=== PATIENT | male | born 1965 | race Caucasian/White ===

== ENCOUNTER 2016-07-06 16:50 | Inpatient (IN) | payer OTHER ==
[~2016-07-06] VITALS: Ht 162.6 cm; Wt 74.1 kg
[~2016-07-06 16:50] MED LIST: CHOL2000 PO; CYAN100020 PO; FOLI1TAB7 PO; LPR25 PO; MAGN400T6 PO; MULT-506 PO; PRT40 PO; RMR15 PO; THIA100T11 PO; TRAZ50TA35 PO; TRIA1SPR4
[2016-07-06] MEDS ORDERED: LORAZEPAM 2 MG/ML 1 ML VIAL IV STA ×3 (17:09→18:52)
[2016-07-06] MEDS ORDERED: SODIUM CHLORIDE 0.9% 1000ML 1,000 ML IV STA (17:09)
[2016-07-06] MEDS ORDERED: MULTI-VITAMIN INFUSION INJ 10 ML, THIAMINE HCL INJ 100 MG, FoLIC ACID INJ 1 MG in SODIU... IV ONE (17:15)
[2016-07-06] MEDS ORDERED: METOPROLOL TARTRATE 1 MG/ML VIAL IV STA ×2 (17:32→17:55)
[2016-07-06 17:41] LABS: ISTAT CREATININE 0.7 mg/dl (0.6-1.3); ISTAT HEMOGLOBIN 16.7 g/dl (14.0-18.0)
--- NOTE | 2016-07-06 17:48 | DIAGNOSTIC IMAGING REPORT ---
SINGLE VIEW CHEST CLINICAL HISTORY: Generalized weakness. FINDINGS: An AP, portable, upright chest radiograph is compared to study dated 01/02/2016 and correlated with chest CT dated 01/21/2015. The examination is significantly degraded by portable technique, apical lordotic positioning, and patient rotation. The cardiomediastinal silhouette is unremarkable. The lungs and pleural spaces are clear. No pneumothorax is seen. The bony thorax is grossly intact. IMPRESSION: No active disease in the chest. Electronically signed by: Dom Scott M.D. 07/06/2016 5:46 PM Dictated Date/Time: 07/06/2016 5:46 PM
[2016-07-06 19:21] LABS: PARTIAL THROMBOPLASTIN RATIO 0.9; PROTHROMBIN TIME (PATIENT) 10.7 SECONDS (9.0-12.0)
[2016-07-06 19:22] LABS: ALT/SGPT 96 U/L (12-78); BLOOD UREA NITROGEN 10 mg/dl (7-18); BUN/CREATININE RATIO 14.3 (10-20); CALCIUM 8.6 mg/dl (8.5-10.1); CARBON DIOXIDE 16 mmol/L (21-32); CHLORIDE 104 mmol/L (98-107); CREATININE 0.67 mg/dl (0.60-1.40); GLUCOSE 86 mg/dl (70-99); MAGNESIUM 1.6 mg/dl (1.8-2.4); POTASSIUM 4.2 mmol/L (3.5-5.1); SODIUM 140 mmol/L (136-145)
[2016-07-06 19:39] LABS: ALKALINE PHOSPHATASE 63 U/L (45-117); AST/SGOT 201 U/L (15-37); PHOSPHORUS 1.3 mg/dl (2.5-4.9)
[2016-07-06 19:44] LABS: MANUAL MICROSCOPIC REQUIRED? NO; REVIEW REQ? NO; URINE APPEARANCE CLEAR (CLEAR); URINE BILIRUBIN NEG (NEG); URINE COLOR YELLOW; URINE EPITHELIAL CELL AUTO 0-5 /lpf (0-5); URINE NITRITE NEG (NEG); URINE SPECIFIC GRAVITY 1.014 (1.000-1.030); UROBILINOGEN NEG (NEG); ZZUR CULT IF INDIC CLEAN CATCH NO
[2016-07-06] MEDS ORDERED: LORAZEPAM 2 MG/ML 1 ML VIAL IV PRN (20:15)
[2016-07-06 20:16] LABS: BASO % 0.4 %; BASO ABS # 0.04 K/uL (0-0.2); COMPLETE YES; HEMATOCRIT 45.4 % (42-52); IG% 0.8 %; LYMPH % 23.4 %; LYMPH ABS # 2.53 K/uL (1.2-3.4); MEAN CELL VOLUME 94.4 fL (80-100); MEAN CORPUSCULAR HEMOGLOBIN 32.2 pg (25-34); MEAN CORPUSCULAR HGB CONC 34.1 g/dl (32-36); MEAN PLATELET VOLUME 10.2 fL (7.4-10.4); MONO % 12.7 %; NEUT % 62.7 %; PLATELET COUNT 136 K/uL (130-400); RED BLOOD COUNT 4.81 M/uL (4.7-6.1); WHITE BLOOD COUNT 10.82 K/uL (4.8-10.8)
[2016-07-06 20:20] LABS: BENZODIAZEPINE, URINE NEG (NEG); COCAINE,URINE NEG (NEG); PHENCYCLIDINE, URINE NEG (NEG)
--- NOTE | 2016-07-06 21:07 | DIAGNOSTIC IMAGING REPORT ---
CT SCAN OF THE BRAIN WITHOUT IV CONTRAST CLINICAL HISTORY: Generalized weakness. COMPARISON STUDY: CT of the brain dated 07/27/15. TECHNIQUE: Unenhanced axial CT scan of the brain is performed from the vertex to the skull base. Automated dose control exposure was utilized. CT DOSE: 709.48 mGy.cm FINDINGS: Brain parenchyma: Age-advanced central greater than peripheral cortical volume loss is similar to prior studies. There is no hemorrhage, mass effect, or evidence of acute territorial ischemia by CT criteria. Reynolds-white matter is preserved. No extra-axial fluid collection is seen. Ventricles, sulci, cisterns: Prominent for age. Intracranial vasculature: The visualized intracranial vasculature at the skull base is normal in appearance. Calvarium: Unremarkable. Sinuses and mastoids: The visualized paranasal sinuses are clear. The mastoid air cells are well pneumatized. Orbits: The bony orbits are grossly intact. IMPRESSION: No acute intracranial abnormality. Electronically signed by: Dom Scott M.D. 07/06/2016 6:12 PM Dictated Date/Time: 07/06/2016 6:09 PM
[2016-07-06] MEDS ORDERED: PROMETHAZINE HCL INJ 12.5 MG in SODIUM CHLORIDE 0.9% 50ML 50 ML IV PRN (21:15)
[2016-07-06] MEDS ORDERED: NITROGLYCERIN 0.4 MG SL PER TAB CHARGE SL PRN (21:15)
[2016-07-06] MEDS ORDERED: TRIAMCINOLONE ACET NASAL SPRAY 10.8ML BTL PRN (21:15)
[2016-07-06] MEDS ORDERED: ONDANSETRON INJ 2 MG/ML 2 ML VIAL IV PRN (21:15)
[2016-07-06] MEDS ORDERED: BISACODYL 10 MG SUPP PR PRN (21:15)
[2016-07-06] MEDS ORDERED: MULTI-VITAMIN INFUSION INJ 10 ML, THIAMINE HCL INJ 100 MG, FoLIC ACID INJ 1 MG in SODIU... IV SCH (21:15)
[2016-07-06] MEDS ORDERED: ALUMINUM/MAGNESIUM/SIMETH (MAALOX MAX) 30 ML UDC PO PRN (21:15)
[2016-07-06] MEDS ORDERED: MAGNESIUM HYDROXIDE SUSP 30 ML UDC PO PRN (21:15)
[2016-07-06] MEDS ORDERED: ZOLPIDEM TARTRATE 5 MG TAB PO PRN ×2 (21:15)
[2016-07-06] MEDS ORDERED: CHLORDIAZEPOXIDE 25 MG CAP ONE (21:32)
[2016-07-06] MEDS ORDERED: CHLORDIAZEPOXIDE 25 MG CAP PO STA (21:46)
--- NOTE | 2016-07-06 21:52 | History and Physical ---
History & Physical Date & Time of Service: Jul 06, 2016 at 21:35 Chief Complaint: Seizure, Detox Sx Primary Care Physician: Mariano Leonard D.O.Int.Med. History of Present Illness Source: patient The patient is a 50-year-old male with known alcoholism, whom I admitted several times to the hospital last year, who presents to the ED with report of a seizure after having stopped alcohol use 24-48 hours ago. His presentation this time is similar to his presentations in the past. Although, he does report that he thinks he reinjured his mid back during the seizure, and has required physical therapy in the past. He is also had nausea and vomiting, without hemoptysis, but denies any abdominal pain, bleeding tendencies or diarrhea. Past Medical/Surgical History Medical Problems: (1) Alcohol overdose Status: Resolved (2) Alcohol withdrawal Status: Resolved (3) Alcoholism Status: Chronic (4) Compression fracture of body of thoracic vertebra Status: Resolved (5) Compression fracture of L1 lumbar vertebra Status: Resolved (6) Hypokalemia Status: Resolved (7) Hypomagnesemia Status: Resolved Family History Lung disease Social History Smoking Status: Never Smoker Smokeless Tobacco Use: No Alcohol Use: heavy Drug Use: none Marital Status: in relationship Occupational Status: employed Multi-Drug Resistant Organisms History of MDRO: No Allergies Coded Allergies: No Known Allergies (Unverified , 02/05/16) Home Medications Scheduled Cholecalciferol (Vitamin D3), 2,000 INTER.UNIT PO DAILY Cyanocobalamin (Vitamin B12), 1,000 MCG PO DAILY Folic Acid (Folvite), 1 MG PO DAILY Magnesium Oxide (Mag-Ox), 400 MG PO BID Multivitamin (Multivitamin), 1 TAB PO DAILY Thiamine Hcl (Vitamin B-1), 100 MG PO BID Trazodone Hcl (Trazodone), 50 MG PO HS Scheduled PRN Triamcinolone Acetonide (Nasal (Nasacort Allergy 24Hr), 2 SPRAYS NA DAILY PRN for Allergy Symptoms Review of Systems The patient denies chest pain, palpitations, shortness of breath, lower extremity swelling, vision change, hearing change, fevers, chills, sweats, weight change, pelvic pain, blood in urine or stool, dysuria, urinary frequency or urgency, rash, abnormal bruising or bleeding, imbalance, focal or generalized weakness, neck pain, night sweats, or allergy symptoms. The review of systems is otherwise negative other than for that already noted above, and at least 10 systems have been reviewed. Physical Exam Vital Signs Date Time Temp Pulse Resp B/P Pulse Ox O2 Delivery O2 Flow Rate FiO2 07/06/16 21:08 103 07/06/16 20:01 98 22 97 07/06/16 19:58 129/86 07/06/16 19:31 93 22 96 07/06/16 19:26 93 16 97 07/06/16 19:24 96 25 94 07/06/16 19:22 95 27 95 07/06/16 19:20 93 23 95 07/06/16 19:18 92 25 130/82 93 07/06/16 19:16 92 23 130/84 07/06/16 19:14 93 24 127/89 07/06/16 19:12 101 24 132/86 94 07/06/16 19:10 106 25 129/85 95 07/06/16 19:09 108 142/91 07/06/16 19:09 129/80 07/06/16 19:08 116 22 142/91 87 07/06/16 19:06 107 22 96 07/06/16 19:04 104 24 96 07/06/16 19:02 102 21 97 07/06/16 19:00 104 25 96 07/06/16 18:50 103 26 127/81 96 Room Air 07/06/16 17:56 92 21 129/85 96 Room Air 07/06/16 17:40 143 23 130/95 99 Room Air 07/06/16 17:39 143 132/92 07/06/16 17:05 157 07/06/16 17:04 36.8 155 25 132/92 96 Room Air The patient is awake, alert and oriented 3, normocephalic and atraumatic, lying in bed and in no acute distress. HEENT--PERRL, EOMI, mucous membranes and oropharynx dry. Neck--supple, no JVD or bruits, thyroid normal, trachea midline, no adenopathy. Heart--normal S1 and S2, no extra beats, no murmurs, rubs or gallops. Lungs--clear bilaterally no respiratory distress, no accessory muscle use. Abdomen--normal bowel sounds and soft, nontender and nondistended, no hernias or masses, no organomegaly. Extremities--no cyanosis, clubbing or edema. There are good distal pulses b/l. Dermatologic--seborrheic dermatitis/early rosacea over the glabellar and periorbital skin regions of the face. Neurologic--cranial nerves II through XII grossly intact, motor and sensory examination normal, abnormal finger to nose bilaterally. Rheumatologic--tenderness over paraspinal muscles in the mid thoracic spine area. Psychiatric--normal affect. Diagnostics Laboratory Results Results Past 24 Hours Test 07/06/16 16:50 07/06/16 17:17 07/06/16 18:50 07/06/16 19:00 Range/Units White Blood Count 10.82 4.8-10.8 K/uL Red Blood Count 4.81 4.7-6.1 M/uL Hemoglobin 15.5 14.0-18.0 g/dL Hematocrit 45.4 42-52 % Mean Corpuscular Volume 94.4 80-100 fL Mean Corpuscular Hemoglobin 32.2 25-34 pg Mean Corpuscular Hemoglobin Concent 34.1 32-36 g/dl Platelet Count 136 130-400 K/uL Mean Platelet Volume 10.2 7.4-10.4 fL Neutrophils (%) (Auto) 62.7 % Lymphocytes (%) (Auto) 23.4 % Monocytes (%) (Auto) 12.7 % Eosinophils (%) (Auto) 0.0 % Basophils (%) (Auto) 0.4 % Neutrophils # (Auto) 6.79 1.4-6.5 K/uL Lymphocytes # (Auto) 2.53 1.2-3.4 K/uL Monocytes # (Auto) 1.37 0.11-0.59 K/uL Eosinophils # (Auto) 0.00 0-0.5 K/uL Basophils # (Auto) 0.04 0-0.2 K/uL RDW Standard Deviation 51.3 36.4-46.3 fL RDW Coefficient of Variation 14.7 11.5-14.5 % Immature Granulocyte % (Auto) 0.8 % Immature Granulocyte # (Auto) 0.09 0.00-0.02 K/uL Bedside Hemoglobin 16.7 14.0-18.0 g/dl Bedside Hematocrit 49 42-52 % Bedside Sodium 139 135-144 mEq/L Bedside Potassium 3.0 3.3-5.0 mEq/L Bedside Chloride 102 101-112 mEq/L Bedside Total CO2 10 24-31 mEq/l Anion Gap 30.0 20.0 3-11 mmol/L Bedside Blood Urea Nitrogen 11 7-18 mg/dl Bedside Creatinine 0.7 0.6-1.3 mg/dl Bedside Glucose (other) 105 70-99 mg/dl Bedside Ionized Calcium (Luz) 1.00 1.12-1.32 mmol/l Prothrombin Time 10.7 9.0-12.0 SECONDS Prothromb Time International Ratio 1.0 0.9-1.1 Activated Partial Thromboplast Time 24.3 21.0-31.0 SECONDS Partial Thromboplastin Ratio 0.9 Sodium Level 140 136-145 mmol/L Potassium Level 4.2 3.5-5.1 mmol/L Chloride Level 104 98-107 mmol/L Carbon Dioxide Level 16 21-32 mmol/L Blood Urea Nitrogen 10 7-18 mg/dl Creatinine 0.67 0.60-1.40 mg/dl Est Creatinine Clear Calc Drug Dose 122.3 ml/min Estimated GFR () 130.8 Estimated GFR (Non- 112.8 BUN/Creatinine Ratio 14.3 10-20 Random Glucose 86 70-99 mg/dl Calcium Level 8.6 8.5-10.1 mg/dl Phosphorus Level 1.3 2.5-4.9 mg/dl Magnesium Level 1.6 1.8-2.4 mg/dl Total Bilirubin 1.9 0.2-1 mg/dl Direct Bilirubin 0.7 0-0.2 mg/dl Aspartate Amino Transf (AST/SGOT) 201 15-37 U/L Alanine Aminotransferase (ALT/SGPT) 96 12-78 U/L Alkaline Phosphatase 63 45-117 U/L Total Creatine Kinase 462 39-308 U/L Creatine Kinase MB 4.6 0.5-3.6 ng/ml Creatine Kinase MB Ratio 1.0 0-3.0 Troponin I < 0.015 0-0.045 ng/ml Total Protein 7.5 6.4-8.2 gm/dl Albumin 3.6 3.4-5.0 gm/dl Lipase 209 73-393 U/L Ethyl Alcohol mg/dL < 3.0 0-3 mg/dl Urine Color YELLOW Urine Appearance CLEAR CLEAR Urine pH 5.0 4.5-7.5 Urine Specific [place] 1.014 1.000-1.030 Urine Protein 1+ NEG Urine Glucose (UA) NEG NEG Urine Ketones 3+ NEG Urine Occult Blood 2+ NEG Urine Nitrite NEG NEG Urine Bilirubin NEG NEG Urine Urobilinogen NEG NEG Urine Leukocyte Esterase NEG NEG Urine WBC (Auto) 1-5 0-5 /hpf Urine RBC (Auto) 0-4 0-4 /hpf Urine Hyaline Casts (Auto) 0 0-5 /lpf Urine Epithelial Cells (Auto) 0-5 0-5 /lpf Urine Bacteria (Auto) NEG NEG Urine Opiates Screen NEG NEG Urine Methadone, Qualitative NEG NEG Urine Barbiturates NEG NEG Urine Phencyclidine (PCP) Level NEG NEG Ur Amphetamine/Methamphetamine NEG NEG MDMA (Ecstasy) Screen NEG NEG Urine Benzodiazepines Screen NEG NEG Urine Cocaine Metabolite NEG NEG Urine Marijuana (THC) NEG NEG Diagnostic Radiology Patient Name: RANCHO NESBITT Unit Number: [id number] Dictated: 07/06/161808 Transcribed: 07/06/161808 EV Printed Date/Time: [~ rep prt dt]/[~ rep prt tm] [~ rep ct labl] - [~ rep ct ivnm] [facility] Radiology Department [place] [id number] Dictated: 07/06/161808 Transcribed: 07/06/161808 EV Printed Date/Time: [~ rep prt dt]/[~ rep prt tm] [~ rep ct labl] - [~ rep ct ivnm] CT SCAN OF THE BRAIN WITHOUT IV CONTRAST CLINICAL HISTORY: Generalized weakness. COMPARISON STUDY: CT of the brain dated 07/27/15. TECHNIQUE: Unenhanced axial CT scan of the brain is performed from the vertex to the skull base. Automated dose control exposure was utilized. CT DOSE: 709.48 mGy.cm FINDINGS: Brain parenchyma: Age-advanced central greater than peripheral cortical volume loss is similar to prior studies. There is no hemorrhage, mass effect, or evidence of acute territorial ischemia by CT criteria. Reynolds-white matter is preserved. No extra-axial fluid collection is seen. Ventricles, sulci, cisterns: Prominent for age. Intracranial vasculature: The visualized intracranial vasculature at the skull base is normal in appearance. Calvarium: Unremarkable. Sinuses and mastoids: The visualized paranasal sinuses are clear. The mastoid air cells are well pneumatized. Orbits: The bony orbits are grossly intact. IMPRESSION: No acute intracranial abnormality. Electronically signed by: Dom Scott M.D. 07/06/2016 6:12 PM Dictated Date/Time: 07/06/2016 6:09 PM The status of this report is Signed. Draft = Not yet reviewed or approved by Radiologist. Signed = Reviewed and approved by Radiologist. <AttendingPhy></AttendingPhy> <FamilyPhy>Mariano Leonard D.O.Int.Med.</ FamilyPhy> <PrimaryPhy>Mariano Leonard D.O.Int.Med.</PrimaryPhy> <UnitNumber> [id number]</UnitNumber> <VisitNumber>[id number]</VisitNumber> <PatientName> RANCHO NESBITT</PatientName> <DateOfBirth>1965</DateOfBirth> <Location> [facility]</Location> <ServiceDate>07/06/16</ServiceDate> <MNE>ESINDI</MNE> < OrderingPhy>Chad Cunningham M.D.</OrderingPhy> <OrderingPhyMNE>f rep ord dr mascorro</OrderingPhyMNE> <DictatingPhyMNE>f rep dict dr mascorro</DictatingPhyMNE> < CCListMNE>f rep ct ludwin</CCListMNE> <AdmittingPhyMNE>f pt admit dr mascorro</ AdmittingPhyMNE> <AttendingPhyMNE>f pt attend dr mascorro</AttendingPhyMNE> <ConsultingPhyMNE>f pt consult dr mascorro</ConsultingPhyMNE> <FamilyPhyMNE>f pt fam dr mascorro</FamilyPhyMNE> <OtherPhyMNE>f pt other dr mascorro</OtherPhyMNE> < PrimaryPhyMNE>f pt prim care dr mascorro</PrimaryPhyMNE> <ReferringPhyMNE>f pt referring dr mascorro</ReferringPhyMNE> EKG EKG shows atrial fibrillation at a rate of 150 bpm, with nonspecific ST changes. Impression Assessment and Plan Seizure activity likely secondary to alcohol withdrawal--the patient will be admitted to telemetry unit with seizure precautions. Will start Librium 25 mg by mouth tonight and continue at 25 mg by mouth twice a day, and have IV lorazepam available when necessary anxiety and when necessary seizure. We will not start him on seizure medications unless he has a recurrence tonight. Atrial fibrillation with rapid ventricular response--patient will be admitted to the telemetry unit as noted above, will follow serial cardiac enzymes, cardiac rhythm monitoring and order a 2-D echocardiogram with Dopplers. He has had paroxysmal atrial fib in the past. His electrolytes will be optimized along with his dehydration status. He'll be given magnesium sulfate 2 g IV for his magnesium level of 1.6, and he will be given a banana bag every a.m. to run at 125 mils per hour, followed by normal saline with KCl at 125 ML's per hour. Lopressor 5 mg IV every 4 hours when necessary for heart rate greater than 110 will be available. Abnormal liver enzymes--higher than usual for him. We'll order an ultrasound right upper quadrant to assess for possible cirrhosis. Elevated CK/metabolic acidosis--CK is elevated at 462, and bicarbonate is low at 16. Monitor enzymes for possible rhabdomyolysis. Treat as above with IV fluid rehydration. Follow serial BMP and magnesium levels. Hypophosphatemia--phosphorus level of 1.3 upon admission. We'll give 30 mmol K- Phos rider. Level of Care Telemetry Advanced Directives Existing Advance Directive: No Existing Living Will: No Existing Power of [employer]: No Resuscitation Status FULL RESUSCITATION VTE Prophylaxis VTE Risk Assessment Done? Y/N: Yes Risk Level: Moderate Given or contraindicated: SCD's
[2016-07-06] MEDS ORDERED: POTASSIUM PHOS 3 MMOL/1 ML INFUSION IV STA (21:53)
--- NOTE | 2016-07-06 22:22 | EMERGENCY ROOM VISIT NOTE ---
History Report prepared by Kandi: Phillip Mota Under the Supervision of: Dr. Chad Cunningham M.D. First contact with patient: 17:04 Chief Complaint: SEIZURE Stated Complaint: SEIZURE, DETOX SX Nursing Triage Summary: patient to ED via ALS for alcohol withdraw. Per medic, patient called for ambulance "because he was feeling weird." Upon scene, patient was found to be having a seizure lasting approximately 30 seconds, with heart rate around 170. Given 6mg adenocard by Dr Pelayo. At time of triage, patient is seizure free, AAOx4, c/o SOB, chest pressure History of Present Illness The patient is a 50 year old male who presents to the Emergency Room via ALS with complaints of a sudden seizure beginning just prior to arrival. He currently rates his discomfort as an 8/10 in severity. The patient associates chest pain and shortness of breath with today's symptoms. As per nursing note, the patient called the ambulance for "feeling weird", and upon EMS arrival, the patient had a seizure for 30 seconds. It is noted the patient has a history of alcohol abuse, and he notes his last alcohol drink was last night at 9 PM. The patient states he last went a couple days without drinking last week. He denies abdominal pain, hitting his head, blood in his stool, recent easy bruising, and recreational drug use. As per nursing note, the patient was given 6mg Adenocard by Dr. Pelayo. Source of History: patient Onset: just prior to arrival Position: other (global) Symptom Intensity: 8/10 Quality: other (seizure) Timing: other (sudden) Associated Symptoms: + SOB, + chest pain, No abdominal pain, No hematochezia , No melena Review of Systems See HPI for pertinent positives & negatives. A total of 10 systems reviewed and were otherwise negative. Past Medical & Surgical Medical Problems: (1) Alcohol overdose (2) Alcohol withdrawal (3) Alcohol withdrawal (4) Alcoholism (5) Compression fracture of body of thoracic vertebra (6) Compression fracture of L1 lumbar vertebra (7) Hypokalemia (8) Hypomagnesemia (9) Seizure-like activity Family History Lung disease Social History Smoking Status: Never Smoker Alcohol Use: heavy Drug Use: none Marital Status: in relationship Housing Status: lives with significant other Occupation Status: employed Current/Historical Medications Scheduled Cholecalciferol (Vitamin D3), 2,000 INTER.UNIT PO DAILY Cyanocobalamin (Vitamin B12), 1,000 MCG PO DAILY Folic Acid (Folvite), 1 MG PO DAILY Magnesium Oxide (Mag-Ox), 400 MG PO BID Multivitamin (Multivitamin), 1 TAB PO DAILY Thiamine Hcl (Vitamin B-1), 100 MG PO BID Trazodone Hcl (Trazodone), 50 MG PO HS Scheduled PRN Triamcinolone Acetonide (Nasal (Nasacort Allergy 24Hr), 2 SPRAYS NA DAILY PRN for Allergy Symptoms Allergies Coded Allergies: No Known Allergies (Unverified , 02/05/16) Physical Exam Vital Signs Date Time Temp Pulse Resp B/P Pulse Ox O2 Delivery O2 Flow Rate FiO2 07/06/16 21:30 99 24 137/83 96 Room Air 07/06/16 21:08 103 07/06/16 20:01 98 22 97 07/06/16 19:58 129/86 07/06/16 19:31 93 22 96 07/06/16 19:26 93 16 97 07/06/16 19:24 96 25 94 07/06/16 19:22 95 27 95 07/06/16 19:20 93 23 95 07/06/16 19:18 92 25 130/82 93 07/06/16 19:16 92 23 130/84 07/06/16 19:14 93 24 127/89 07/06/16 19:12 101 24 132/86 94 07/06/16 19:10 106 25 129/85 95 07/06/16 19:09 108 142/91 07/06/16 19:09 129/80 07/06/16 19:08 116 22 142/91 87 07/06/16 19:06 107 22 96 07/06/16 19:04 104 24 96 07/06/16 19:02 102 21 97 07/06/16 19:00 104 25 96 07/06/16 18:50 103 26 127/81 96 Room Air 07/06/16 17:56 92 21 129/85 96 Room Air 07/06/16 17:40 143 23 130/95 99 Room Air 07/06/16 17:39 143 132/92 07/06/16 17:05 157 07/06/16 17:04 36.8 155 25 132/92 96 Room Air Physical Exam GENERAL: Patient is ill appearing and in minimal distress. HEENT: No acute trauma, normocephalic atraumatic, mucous membranes dry, no nasal congestion, no scleral icterus. NECK: No stridor, no adenopathy, no meningismus, trachea is midline. LUNGS: No dyspnea. Clear to auscultation and equal bilaterally. No wheeze, no rhonchi. HEART: Tachycardic and regular. No murmurs, rubs, gallops appreciated. ABDOMEN: Soft, nontender, bowel sounds positive, no masses appreciated, no peritonitis. BACK: No midline tenderness, no CVA tenderness EXTREMITIES: Normal motion all extremities, no cyanosis, no edema. NEUROLOGIC: Alert and oriented, no acute motor or sensory deficits, no focal weakness, cranial nerves grossly intact. Fine tremor to all extremities. SKIN: No rash, no jaundice, no diaphoresis. Medical Decision & Procedures ER Provider Diagnostic Interpretation: X ray results and stated below per my interpretation and radiologist interpretation. Other radiology results and stated below per my review and radiologist interpretation: SINGLE VIEW CHEST CLINICAL HISTORY: Generalized weakness. FINDINGS: An AP, portable, upright chest radiograph is compared to study dated 01/02/2016 and correlated with chest CT dated 01/21/2015. The examination is significantly degraded by portable technique, apical lordotic positioning, and patient rotation. The cardiomediastinal silhouette is unremarkable. The lungs and pleural spaces are clear. No pneumothorax is seen. The bony thorax is grossly intact. IMPRESSION: No active disease in the chest. Electronically signed by: Dom Scott M.D. 07/06/2016 5:[address] SCAN OF THE BRAIN WITHOUT IV CONTRAST CLINICAL HISTORY: Generalized weakness. COMPARISON STUDY: CT of the brain dated 07/27/15. TECHNIQUE: Unenhanced axial CT scan of the brain is performed from the vertex to the skull base. Automated dose control exposure was utilized. CT DOSE: 709.48 mGy.cm FINDINGS: Brain parenchyma: Age-advanced central greater than peripheral cortical volume loss is similar to prior studies. There is no hemorrhage, mass effect, or evidence of acute territorial ischemia by CT criteria. Reynolds-white matter is preserved. No extra-axial fluid collection is seen. Ventricles, sulci, cisterns: Prominent for age. Intracranial vasculature: The visualized intracranial vasculature at the skull base is normal in appearance. Calvarium: Unremarkable. Sinuses and mastoids: The visualized paranasal sinuses are clear. The mastoid air cells are well pneumatized. Orbits: The bony orbits are grossly intact. IMPRESSION: No acute intracranial abnormality. Electronically signed by: Dom Scott M.D. 07/06/2016 6:12 PM Laboratory Results 07/06/16 16:50 Red Blood Count 4.81, Mean Corpuscular Volume 94.4, Mean Corpuscular Hemoglobin 32.2, Mean Corpuscular Hemoglobin Concent 34.1, Mean Platelet Volume 10.2, Neutrophils (%) (Auto) 62.7, Lymphocytes (%) (Auto) 23.4, Monocytes (%) (Auto) 12.7, Eosinophils (%) (Auto) 0.0, Basophils (%) (Auto) 0.4, Neutrophils # (Auto ) 6.79, Lymphocytes # (Auto) 2.53, Monocytes # (Auto) 1.37, Eosinophils # (Auto ) 0.00, Basophils # (Auto) 0.04 07/06/16 18:50 Test 07/06/16 16:50 07/06/16 17:17 07/06/16 18:50 07/06/16 19:00 White Blood Count 10.82 K/uL (4.8-10.8) Red Blood Count 4.81 M/uL (4.7-6.1) Hemoglobin 15.5 g/dL (14.0-18.0) Hematocrit 45.4 % (42-52) Mean Corpuscular Volume 94.4 fL (80-100) Mean Corpuscular Hemoglobin 32.2 pg (25-34) Mean Corpuscular Hemoglobin Concent 34.1 g/dl (32-36) Platelet Count 136 K/uL (130-400) Mean Platelet Volume 10.2 fL (7.4-10.4) Neutrophils (%) (Auto) 62.7 % Lymphocytes (%) (Auto) 23.4 % Monocytes (%) (Auto) 12.7 % Eosinophils (%) (Auto) 0.0 % Basophils (%) (Auto) 0.4 % Neutrophils # (Auto) 6.79 K/uL (1.4-6.5) Lymphocytes # (Auto) 2.53 K/uL (1.2-3.4) Monocytes # (Auto) 1.37 K/uL (0.11-0.59) Eosinophils # (Auto) 0.00 K/uL (0-0.5) Basophils # (Auto) 0.04 K/uL (0-0.2) RDW Standard Deviation 51.3 fL (36.4-46.3) RDW Coefficient of Variation 14.7 % (11.5-14.5) Immature Granulocyte % (Auto) 0.8 % Immature Granulocyte # (Auto) 0.09 K/uL (0.00-0.02) Bedside Hemoglobin 16.7 g/dl (14.0-18.0) Bedside Hematocrit 49 % (42-52) Bedside Sodium 139 mEq/L (135-144) Bedside Potassium 3.0 mEq/L (3.3-5.0) Bedside Chloride 102 mEq/L (101-112) Bedside Total CO2 10 mEq/l (24-31) Bedside Blood Urea Nitrogen 11 mg/dl (7-18) Bedside Creatinine 0.7 mg/dl (0.6-1.3) Bedside Glucose (other) 105 mg/dl (70-99) Bedside Ionized Calcium (Luz) 1.00 mmol/l (1.12-1.32) Prothrombin Time 10.7 SECONDS (9.0-12.0) Prothromb Time International Ratio 1.0 (0.9-1.1) Activated Partial Thromboplast Time 24.3 SECONDS (21.0-31.0) Partial Thromboplastin Ratio 0.9 Anion Gap 20.0 mmol/L (3-11) Est Creatinine Clear Calc Drug Dose 122.3 ml/min Estimated GFR () 130.8 Estimated GFR (Non- 112.8 BUN/Creatinine Ratio 14.3 (10-20) Calcium Level 8.6 mg/dl (8.5-10.1) Phosphorus Level 1.3 mg/dl (2.5-4.9) Magnesium Level 1.6 mg/dl (1.8-2.4) Total Bilirubin 1.9 mg/dl (0.2-1) Direct Bilirubin 0.7 mg/dl (0-0.2) Aspartate Amino Transf (AST/SGOT) 201 U/L (15-37) Alanine Aminotransferase (ALT/SGPT) 96 U/L (12-78) Alkaline Phosphatase 63 U/L (45-117) Total Protein 7.5 gm/dl (6.4-8.2) Albumin 3.6 gm/dl (3.4-5.0) Lipase 209 U/L (73-393) Ethyl Alcohol mg/dL < 3.0 mg/dl (0-3) Urine Color YELLOW Urine Appearance CLEAR (CLEAR) Urine pH 5.0 (4.5-7.5) Urine Specific [place] 1.014 (1.000-1.030) Urine Protein 1+ (NEG) Urine Glucose (UA) NEG (NEG) Urine Ketones 3+ (NEG) Urine Occult Blood 2+ (NEG) Urine Nitrite NEG (NEG) Urine Bilirubin NEG (NEG) Urine Urobilinogen NEG (NEG) Urine Leukocyte Esterase NEG (NEG) Urine WBC (Auto) 1-5 /hpf (0-5) Urine RBC (Auto) 0-4 /hpf (0-4) Urine Hyaline Casts (Auto) 0 /lpf (0-5) Urine Epithelial Cells (Auto) 0-5 /lpf (0-5) Urine Bacteria (Auto) NEG (NEG) Urine Opiates Screen NEG (NEG) Urine Methadone, Qualitative NEG (NEG) Urine Barbiturates NEG (NEG) Urine Phencyclidine (PCP) Level NEG (NEG) Ur Amphetamine/Methamphetamine NEG (NEG) MDMA (Ecstasy) Screen NEG (NEG) Urine Benzodiazepines Screen NEG (NEG) Urine Cocaine Metabolite NEG (NEG) Urine Marijuana (THC) NEG (NEG) Test 07/06/16 21:53 Creatine Kinase MB Ratio (0-3.0) Laboratory results as reviewed by me. Medications Administered Medications (Trade) Dose Ordered Sig/Dyan Route Start Time Stop Time Status Last Admin Dose Admin Sodium Chloride (Nss 1000ml) 1,000 ml @ 999 mls/hr Q1H1M STAT IV 07/06/16 17:09 07/06/16 18:09 DC 07/06/16 17:20 999 MLS/HR Lorazepam 1 mg 1 mg NOW STAT IV 07/06/16 17:09 07/06/16 17:11 DC 07/06/16 17:20 1 MG Multivitamins/ Thiamine HCl/ Folic Acid/Sodium Chloride (Mvi Infusion Inj/Vitamin B-1 Inj/Folvite Inj/ Nss 1000ml) 1,011.2 ml @ 200 mls/ hr Q5H4M ONCE IV 07/06/16 17:15 07/06/16 22:18 07/06/16 19:10 200 MLS/HR Metoprolol Tartrate (Lopressor Iv) 5 mg NOW STAT IV 07/06/16 17:32 07/06/16 17:33 DC 07/06/16 17:39 5 MG Lorazepam (Ativan Inj) 1 mg NOW STAT IV 07/06/16 17:46 07/06/16 17:47 DC 07/06/16 17:56 1 MG Metoprolol Tartrate (Lopressor Iv) 5 mg NOW STAT IV 07/06/16 17:55 07/06/16 17:57 DC 07/06/16 19:09 5 MG Lorazepam (Ativan Inj) 2 mg NOW STAT IV 07/06/16 18:52 07/06/16 18:53 DC 07/06/16 19:10 2 MG Chlordiazepoxide (Librium Cap) 25 mg STK-MED ONCE .ROUTE 07/06/16 21:32 07/06/16 21:34 DC 07/06/16 21:36 25 MG ECG Indication: other (seizure) Rate (beats per minute): 150 Rhythm: atrial fibrillation (with RVR) Findings: ST depression (Nonspecific Lateral), other (no ST elevation.) ED Course 1706: The patient was evaluated in room C10. A complete history and physical exam was performed. 1709: Ordered Ativan inj 1 mg IV, Sodium Chloride 1,000 ml @ 999 mls/hr IV. 1715: Ordered Multivitamins 10 ml/Thiamine HCL 100 mg/Folic Acid 1 mg/Sodium Chloride 1,011.2ml @ 200 mls/hr IV. 1732: Ordered Lopressor Iv 5 mg IV. 1745: Reevaluated the patient at this time, and he is still feeling a little shaky but his heart rate is down. 1746: Ordered Ativan Inj 1 mg IV. 1755: Ordered Lopressor Iv 5 mg IV. 1802: Reevaluated the patient at this time, and he is still tachycardic so more Lopressor was administered. 1849: Reevaluated the patient at this time, and he notes his tremors are returning. 185: Ordered Ativan inj 2 mg IV. 1920: Reevaluated the patient at this time, and he is stable with the heart rate in the 90s. The patient is breathing comfortably. 2028: I spoke to ANICETO Ghotra (Hospitalist) about the patient's case, and he will follow the patient for further evaluation. Medical Decision Differential: Sepsis, Infectious (UTI/Pneumonia/Meningitis/etc), Metabolic/ Electrolyte Abnormality, Cardiac, Hepatic, Endocrine, Toxicologic, Neurologic, amongst other pathologies entertained. 50 yr old male alcoholic well known to department for previous visits arrives s/ p seizure after not drinking for 24 hours. Chronically unwell appearing. He is in afib RVR which improved with lopressor IV x 2 though remained in Afib. HgB OK. Mildly dehydrated thus initial fluids. Given multiple rounds of ativan to get tremors under control. His labs reveal severe malnutrition. He is in need of inpatient monitoring and treatment. Consults Time Called: 2021 Consulting Physician: ANICETO Ghotra (Hospitalist) Returned Call: 2028 I spoke to ANICETO Ghotra (Hospitalist) about the patient's case, and he will follow the patient for further evaluation. Impression Primary Impression: Alcohol withdrawal Additional Impressions: Seizure Atrial fibrillation with RVR Malnutrition Hypophosphatemia Alcoholic Critical Care I have personally spent greater than 45 minutes of critical care time in the direct management of this patient. This was a life/limb threatening event. This includes time spent evaluating patient, direct bedside care, chart review, placing orders, interpretation of diagnostic studies, discussion with consultants, patient, and family members, as well as other required patient management activities. This 45 minutes is in excess of all separately billable procedures. Scribe Attestation The scribe's documentation has been prepared under my direction and personally reviewed by me in its entirety. I confirm that the note above accurately reflects all work, treatment, procedures, and medical decision making performed by me. Departure Information Dispostion Being Evaluated By Hospitalist (ANICETO Ghotra (Hospitalist)) Referrals Mariano Leonard D.O.Int.Med. (PCP) Problem Qualifiers Primary Impression: Alcohol withdrawal Complication of substance-induced condition: with unspecified complication Qualified Codes: F10.239 - Alcohol dependence with withdrawal, unspecified
[2016-07-06] MEDS ORDERED: POTASSIUM PHOSPHATE INJ 30 MMOL in SODIUM CHLORIDE 0.9% 500ML 500 ML IV SCH (22:30)
[2016-07-06] MEDS: KETOROLAC TROMETHAMINE 30 MG/ML VIAL IV PRN (22:55)
[2016-07-06 23:11] LABS: CKMB/CK RATIO 0.7 (0-3.0)
[2016-07-06 23:48] VITALS: BP 141/79; PULSE 117; TEMP 38.1; O2SAT 97; Ht 162.6 cm; Wt 74.1 kg
[2016-07-07] VITALS (8 sets, daily range): BP systolic 131–156; BP diastolic 80–91; PULSE 89–102; TEMP 36.5–37.3; O2SAT 92–98
[2016-07-07] MEDS: LORAZEPAM 2 MG/ML 1 ML VIAL IV PRN ×9 (00:37→23:26)
[2016-07-07] MEDS ORDERED: CEFTRIAXONE SOD INJ 1 GM in DEXTROSE 5% ADD-VANTAGE 50ML 50 ML IV STA (01:12)
[2016-07-07] MEDS: NSS + 20MEQ KCL 1000ML 1,000 ML IV SCH ×3 (01:26→17:48)
[2016-07-07] MEDS: KETOROLAC TROMETHAMINE 30 MG/ML VIAL IV PRN (05:05)
[2016-07-07 06:42] LABS: HEMATOCRIT 37.8 % (42-52); MEAN CELL VOLUME 90.6 fL (80-100); MEAN CORPUSCULAR HEMOGLOBIN 30.5 pg (25-34); MEAN CORPUSCULAR HGB CONC 33.6 g/dl (32-36); RED BLOOD COUNT 4.17 M/uL (4.7-6.1); WHITE BLOOD COUNT 5.99 K/uL (4.8-10.8)
[2016-07-07 06:52] LABS: INR 1.1 (0.9-1.1); PROTHROMBIN TIME (PATIENT) 11.4 SECONDS (9.0-12.0)
--- NOTE | 2016-07-07 06:53 | DIAGNOSTIC IMAGING REPORT ---
BILIARY ULTRASOUND CLINICAL HISTORY: Worsening LFTs. Ethanol abuse. COMPARISON STUDY: 12/23/2014 FINDINGS: The pancreas is nonvisualized. The gallbladder appears sonographically normal. There is no ductal dilatation. The common bile duct measured 3 mm. There is no right-sided hydronephrosis. The liver is heterogeneous in echotexture and slightly echogenic. No focal masses are visualized. IMPRESSION: 1. Nonvisualization the pancreas 2. Heterogeneous, echogenic liver consistent with hepatic steatosis or hepatitis. No focal masses identified. 3. Ultrasonographically normal gallbladder. No ductal dilatation. Electronically signed by: Alfred Cardenas M.D. 07/07/2016 6:51 AM Dictated Date/Time: 07/07/2016 6:49 AM
[2016-07-07 07:14] LABS: BUN/CREATININE RATIO 13.2 (10-20); CALCIUM 7.8 mg/dl (8.5-10.1); CREATININE 0.62 mg/dl (0.60-1.40); MAGNESIUM 1.6 mg/dl (1.8-2.4); POTASSIUM 3.1 mmol/L (3.5-5.1)
[2016-07-07 07:24] LABS: BASO % 0.3 %; BASO ABS # 0.02 K/uL (0-0.2); COMPLETE YES; EOS % 0.3 %; IG% 0.3 %; LYMPH % 23.2 %; LYMPH ABS # 1.39 K/uL (1.2-3.4); MEAN PLATELET VOLUME 9.8 fL (7.4-10.4); NEUT % 61.9 %; PLATELET COUNT 84 K/uL (130-400); PLT ESTIMATE DECREASED
[2016-07-07 07:29] LABS: CKMB/CK RATIO 0.5 (0-3.0)
[2016-07-07] MEDS ORDERED: POTASSIUM CHLORIDE 20 MEQ TABCR PO ONE (07:45)
--- NOTE | 2016-07-07 07:49 | Hospitalist Progress Note ---
Hospitalist Progress Note Date of Service Jul 07, 2016. (Lisa Field PA-C) Subjective Pt evaluation today including: conversation w/ patient, physical exam, chart review, lab review, review of studies, review of inpatient medication list Pain: Mild , mid back PO Intake: Good The patient was seen and examined this morning. Pt reports not sleeping at all overnight. He is having racing thoughts today. Pt has remained tach overnight with [id number] at its highest, denies palpitations, chest pain or shortness of breath. He is complaining of mild back pain and reports this is due to the seizure. Pt tolerated breakfast without abdominal pain, nausea or vomiting. Pt reports sweats overnight and mild shaking. He reports headache today. All Other Systems: Reviewed and Negative (See HPI. ) (Lisa Field, BRI) Objective Vital Signs Date Time Temp Pulse Resp B/P Pulse Ox O2 Delivery O2 Flow Rate FiO2 07/07/16 04:32 36.8 89 19 143/89 94 Room Air 07/07/16 04:00 Room Air 07/07/16 01:49 Room Air 07/06/16 23:48 38.1 117 22 141/79 97 Room Air 07/06/16 23:01 105 26 161/91 97 Room Air 07/06/16 22:30 103 24 07/06/16 22:00 98 27 96 07/06/16 21:58 137/85 07/06/16 21:30 99 24 137/83 96 Room Air 07/06/16 21:30 97 25 97 07/06/16 21:08 103 07/06/16 20:01 98 22 97 07/06/16 19:58 129/86 07/06/16 19:31 93 22 96 07/06/16 19:26 93 16 97 07/06/16 19:24 96 25 94 07/06/16 19:22 95 27 95 07/06/16 19:20 93 23 95 07/06/16 19:18 92 25 130/82 93 07/06/16 19:16 92 23 130/84 07/06/16 19:14 93 24 127/89 07/06/16 19:12 101 24 132/86 94 07/06/16 19:10 106 25 129/85 95 07/06/16 19:09 108 142/91 1/23/17 19:09 129/80 07/06/16 19:08 116 22 142/91 87 07/06/16 19:06 107 22 96 07/06/16 19:04 104 24 96 07/06/16 19:02 102 21 97 07/06/16 19:00 104 25 96 07/06/16 18:50 103 26 127/81 96 Room Air 07/06/16 17:56 92 21 129/85 96 Room Air 07/06/16 17:40 143 23 130/95 99 Room Air 07/06/16 17:39 143 132/92 07/06/16 17:05 157 07/06/16 17:04 36.8 155 25 132/92 96 Room Air (Lisa Field PA-C) Physical Exam General Appearance: WD/WN, no apparent distress, + pertinent finding (anxious) Eyes: PERRL, EOMI ENT: hearing grossly normal, pharynx normal Neck: supple, no JVD Respiratory/Chest: chest non-tender, normal breath sounds, no respiratory distress, no accessory muscle use, + pertinent finding (faint crackles in LLL. ) Cardiovascular: + pertinent finding (Regular, tachycardic with HR~100. No MRGs ) Abdomen: normal bowel sounds, non tender, soft Extremities: non-tender, no pedal edema, no calf tenderness Neurologic/Psychiatric: no motor/sensory deficits, alert, oriented x 3, + pertinent finding (anxious) Skin: normal color, warm/dry (Lisa Field PA-C) Laboratory Results Last 24 Hours Test 07/06/16 16:50 07/06/16 17:17 07/06/16 18:50 07/06/16 19:00 White Blood Count 10.82 K/uL Red Blood Count 4.81 M/uL Hemoglobin 15.5 g/dL Hematocrit 45.4 % Mean Corpuscular Volume 94.4 fL Mean Corpuscular Hemoglobin 32.2 pg Mean Corpuscular Hemoglobin Concent 34.1 g/dl Platelet Count 136 K/uL Mean Platelet Volume 10.2 fL Neutrophils (%) (Auto) 62.7 % Lymphocytes (%) (Auto) 23.4 % Monocytes (%) (Auto) 12.7 % Eosinophils (%) (Auto) 0.0 % Basophils (%) (Auto) 0.4 % Neutrophils # (Auto) 6.79 K/uL Lymphocytes # (Auto) 2.53 K/uL Monocytes # (Auto) 1.37 K/uL Eosinophils # (Auto) 0.00 K/uL Basophils # (Auto) 0.04 K/uL RDW Standard Deviation 51.3 fL RDW Coefficient of Variation 14.7 % Immature Granulocyte % (Auto) 0.8 % Immature Granulocyte # (Auto) 0.09 K/uL Bedside Hemoglobin 16.7 g/dl Bedside Hematocrit 49 % Bedside Sodium 139 mEq/L Bedside Potassium 3.0 mEq/L Bedside Chloride 102 mEq/L Bedside Total CO2 10 mEq/l Anion Gap 30.0 mmol/L 20.0 mmol/L Bedside Blood Urea Nitrogen 11 mg/dl Bedside Creatinine 0.7 mg/dl Bedside Glucose (other) 105 mg/dl Bedside Ionized Calcium (Luz) 1.00 mmol/l Prothrombin Time 10.7 SECONDS Prothromb Time International Ratio 1.0 Activated Partial Thromboplast Time 24.3 SECONDS Partial Thromboplastin Ratio 0.9 Sodium Level 140 mmol/L Potassium Level 4.2 mmol/L Chloride Level 104 mmol/L Carbon Dioxide Level 16 mmol/L Blood Urea Nitrogen 10 mg/dl Creatinine 0.67 mg/dl Est Creatinine Clear Calc Drug Dose 122.3 ml/min Estimated GFR () 130.8 Estimated GFR (Non- 112.8 BUN/Creatinine Ratio 14.3 Random Glucose 86 mg/dl Calcium Level 8.6 mg/dl Phosphorus Level 1.3 mg/dl Magnesium Level 1.6 mg/dl Total Bilirubin 1.9 mg/dl Direct Bilirubin 0.7 mg/dl Aspartate Amino Transf (AST/SGOT) 201 U/L Alanine Aminotransferase (ALT/SGPT) 96 U/L Alkaline Phosphatase 63 U/L Total Creatine Kinase 462 U/L Creatine Kinase MB 4.6 ng/ml Creatine Kinase MB Ratio 1.0 Troponin I < 0.015 ng/ml Total Protein 7.5 gm/dl Albumin 3.6 gm/dl Lipase 209 U/L Ethyl Alcohol mg/dL < 3.0 mg/dl Urine Color YELLOW Urine Appearance CLEAR Urine pH 5.0 Urine Specific [place] 1.014 Urine Protein 1+ Urine Glucose (UA) NEG Urine Ketones 3+ Urine Occult Blood 2+ Urine Nitrite NEG Urine Bilirubin NEG Urine Urobilinogen NEG Urine Leukocyte Esterase NEG Urine WBC (Auto) 1-5 /hpf Urine RBC (Auto) 0-4 /hpf Urine Hyaline Casts (Auto) 0 /lpf Urine Epithelial Cells (Auto) 0-5 /lpf Urine Bacteria (Auto) NEG Urine Opiates Screen NEG Urine Methadone, Qualitative NEG Urine Barbiturates NEG Urine Phencyclidine (PCP) Level NEG Ur Amphetamine/Methamphetamine NEG MDMA (Ecstasy) Screen NEG Urine Benzodiazepines Screen NEG Urine Cocaine Metabolite NEG Urine Marijuana (THC) NEG Test 07/06/16 22:26 07/07/16 05:57 Total Creatine Kinase 809 U/L 1254 U/L Creatine Kinase MB 5.6 ng/ml 5.9 ng/ml Creatine Kinase MB Ratio 0.7 0.5 Troponin I 0.024 ng/ml 0.028 ng/ml White Blood Count 5.99 K/uL Red Blood Count 4.17 M/uL Hemoglobin 12.7 g/dL Hematocrit 37.8 % Mean Corpuscular Volume 90.6 fL Mean Corpuscular Hemoglobin 30.5 pg Mean Corpuscular Hemoglobin Concent 33.6 g/dl Platelet Count 84 K/uL Mean Platelet Volume 9.8 fL Neutrophils (%) (Auto) 61.9 % Lymphocytes (%) (Auto) 23.2 % Monocytes (%) (Auto) 14.0 % Eosinophils (%) (Auto) 0.3 % Basophils (%) (Auto) 0.3 % Neutrophils # (Auto) 3.70 K/uL Lymphocytes # (Auto) 1.39 K/uL Monocytes # (Auto) 0.84 K/uL Eosinophils # (Auto) 0.02 K/uL Basophils # (Auto) 0.02 K/uL RDW Standard Deviation 48.3 fL RDW Coefficient of Variation 14.7 % Immature Granulocyte % (Auto) 0.3 % Immature Granulocyte # (Auto) 0.02 K/uL Platelet Estimate DECREASED Prothrombin Time 11.4 SECONDS Prothromb Time International Ratio 1.1 Activated Partial Thromboplast Time 26.0 SECONDS Partial Thromboplastin Ratio 1.0 Sodium Level 140 mmol/L Potassium Level 3.1 mmol/L Chloride Level 105 mmol/L Carbon Dioxide Level 19 mmol/L Anion Gap 16.0 mmol/L Blood Urea Nitrogen 8 mg/dl Creatinine 0.62 mg/dl Est Creatinine Clear Calc Drug Dose 133.4 ml/min Estimated GFR () 135.0 Estimated GFR (Non- 116.5 BUN/Creatinine Ratio 13.2 Random Glucose 63 mg/dl Calcium Level 7.8 mg/dl Magnesium Level 1.6 mg/dl Total Bilirubin 2.2 mg/dl Direct Bilirubin 0.7 mg/dl Aspartate Amino Transf (AST/SGOT) 163 U/L Alanine Aminotransferase (ALT/SGPT) 78 U/L Alkaline Phosphatase 54 U/L Total Protein 6.4 gm/dl Albumin 3.1 gm/dl (Lisa Field PA-C) Assessment and Plan This is a 50 yo M with PMHx alcohol abuse with seizure secondary to this , paroxysmal afib, Seizure secondary to alcohol intoxication - CT of the head was negative; no new seizure like activity overnight. - Continue ativan prn - Neurology consult if the pt has recurrence of seizure like activity - PT consulted - Will continue ceftriaxone empirically for the next day due to risk for pulmonary involvement d/t seizure like activity - RUQ u/s : shows echogenic liver consistent with hepatic steatosis - Continue librium, can plan to taper after tomorrow - Continue banana bag daily followed by NSS at 125 mL/hr - MVI, thiamine, folic acid Electrolyte Abnormalities: Hypokalemia - replaced with 40 meq PO Hypomagnesemia - replaced with 2 g Hypophosphatemia - 2.4 this morning, no need to replace this morning Paroxysmal afib - Trending cardiac enzymes: 0.015 --> 0.024 --> 0.028 - Echo today - Has been sinus tachycardia overnight with HR up to 113, currently rate around 100. - Denies symptoms. Rhabdomyolysis - Continue supportive treatment IVFs - [place] 200s [place] [address]. DVT ppx: OOB CODE STATUS: Full Code Disposition: From home, discharge when medically stable. (Lisa Field PA-C) Reviewed: Pt Seen/Exam by Me (Komal Solis DO) History Pt is still feeling shaky and anxious, but improved. No further seizures. Is finishing lunch without intolerance. States last drink was Wednesday at 9p. No chest pain or SOB. Agree with HPI/ROS as noted. (Komal Solis DO) General Appearance: WD/WN, no apparent distress Respiratory: normal breath sounds, no respiratory distress Cardiovascular: normal peripheral pulses, regular rate, rhythm Gastrointestinal: non tender, soft Extremities: non-tender, no pedal edema Neurologic/Psychiatric: alert (groggy compared to prior encounters), oriented x 3 Skin Characteristics: normal color, warm/dry (Komal Solis, DO) Assessment/Plan Agree with plan as outlined above Mildly elevated temp and WBC in the setting of alcohol withdrawal, will d/c tomorrow if stable Last alcohol was 07/05 at 9p, still inside the window for withdrawal Pt has been willing to work with outpt rehab services in the recent past per CM , will continue to discuss as he improves (Komal Solis, DO)
[2016-07-07] MEDS: CHOLECALCIFEROL 1000 INTER.UNIT TAB PO SCH (08:00)
[2016-07-07] MEDS: DOCUSATE SODIUM 100 MG CAP PO SCH ×2 (08:01→21:22)
[2016-07-07] MEDS: MULTIVITAMIN TAB PO SCH (08:01)
[2016-07-07] MEDS: CYANOCOBALAMIN 500 MCG TAB (VIT B-12) PO SCH (08:01)
[2016-07-07] MEDS: THIAMINE HCL 100 MG TAB PO SCH ×2 (08:01→21:22)
[2016-07-07] MEDS: MAGNESIUM OXIDE 400 MG TAB PO SCH ×2 (08:02→21:23)
[2016-07-07] MEDS: ENOXAPARIN 40 MG/0.4 ML SYR SC SCH (08:03)
[2016-07-07] MEDS: MoRPHine SULFATE 2 MG/ML CARP IV PRN ×4 (08:14→22:11)
[2016-07-07] MEDS: CHLORDIAZEPOXIDE 25 MG CAP PO SCH ×2 (08:14→21:21)
[2016-07-07] MEDS: MULTI-VITAMIN INFUSION INJ 10 ML, THIAMINE HCL INJ 100 MG, FoLIC ACID INJ 1 MG in SODIU... IV SCH (08:15)
[2016-07-07] MEDS: MAGNESIUM SULFATE 1GM / D5W 1 GM in PREMIXED IN D5W 100 ML IV SCH ×2 (08:16→10:17)
[2016-07-07 14:38] LABS: CKMB/CK RATIO 0.4 (0-3.0)
--- NOTE | 2016-07-07 17:36 | ECHOCARDIOGRAM REPORT ---
*NOTICE TO RECEIVING LIBERTARIAN AGENCY This information is strictly Confidential and protected under [place] law. [place] law prohibits you from making any further disclosure of this information unless further disclosure is expressly permitted by the written consent of the person to whom it pertains or is authorized by law. A general authorization for the release of medical or other information is not sufficient for this purpose. Hospital accepts no responsibility if the information is made available to any other person, INCLUDING THE PATIENT. Interpretation Summary * Name: RANCHO NESBITT Study Date: 07/07/2016 10:20 AM BP: 131/80 mmHg * Patient Location: [facility] HR: 89 * : 1965 (M/d/yyyy) Gender: Male Height: 64 in * Age: 50 yrs Ethnicity: CA Weight: 161 lb * Ordering Physician: Cristhian Carr * Referring Physician: Self, Referred * Performed By: Shyla Daigle RDCS * * Reason For Study: AFIB * BSA: 1.8 m2 * History: AFIB * Normal biventricular systolic function. * Normal chamber dimensions. * No significant valvular abnormalities. * Left ventricular diastolic dysfunction. Procedure Details * A complete two-dimensional transthoracic echocardiogram was performed (2D, M-mode, Doppler and color flow Doppler). Left Ventricle * The left ventricle is normal in size. * There is normal left ventricular wall thickness. * Ejection Fraction = 60-65%. * A full diastolic examination was done with clinical findings of Class I diastolic dysfunction. Right Ventricle * The right ventricle is normal in size and function. Atria * The left atrial size is normal. * Right atrial size is normal. Mitral Valve * The mitral valve is normal. * There is no mitral valve stenosis. * There is no mitral regurgitation noted. Tricuspid Valve * The tricuspid valve is normal. * There is no tricuspid stenosis. * No tricuspid regurgitation. Aortic Valve * The aortic valve opens well. * The aortic valve is not well visualized. * Aortic stenosis is absent. * No aortic regurgitation is present. Pulmonic Valve * The pulmonic valve is not well seen, but is grossly normal. * There is no pulmonic valvular regurgitation. Great Vessels * The aortic root is normal size. Pericardium/Pleural * There is no pericardial effusion. Great Vessels * Normal inferior vena cava diameter and respiratory variation suggests normal central venous pressure. MMode 2D Measurements and Calculations Ao root diam 2.9 cm Ao root area 6.7 cm\S\2 LA dimension 3.1 cm LA/Ao 1.0 LVAd ap4 32.0 cm\S\2 LVLd ap4 8.7 cm EDV(MOD-sp4) 99.9 ml EDV(sp4-el) 99.3 ml LVAs ap4 18.2 cm\S\2 LVLs ap4 7.0 cm ESV(MOD-sp4) 40.0 ml ESV(sp4-el) 40.0 ml EF(MOD-sp4) 59.9 % EF(sp4-el) 59.7 % LVAd ap2 30.5 cm\S\2 LVLd ap2 8.7 cm EDV(MOD-sp2) 89.7 ml EDV(sp2-el) 91.0 ml LVAs ap2 16.8 cm\S\2 LVLs ap2 7.5 cm ESV(MOD-sp2) 35.2 ml ESV(sp2-el) 32.0 ml EF(MOD-sp2) 60.8 % EF(sp2-el) 64.8 % LVLd %diff -0.64 % EDV(MOD-bp) 94.6 ml LVLs %diff 5.9 % ESV(MOD-bp) 37.7 ml EF(MOD-bp) 60.1 % SV(MOD-sp4) 59.9 ml SI(MOD-sp4) 33.5 ml/m\S\2 SV(MOD-sp2) 54.5 ml SI(MOD-sp2) 30.5 ml/m\S\2 SV(MOD-bp) 56.9 ml SI(MOD-bp) 31.8 ml/m\S\2 SV(sp4-el) 59.3 ml SI(sp4-el) 33.2 ml/m\S\2 SV(sp2-el) 59.0 ml SI(sp2-el) 33.0 ml/m\S\2 Doppler Measurements and Calculations MV E max usman 77.1 cm/sec MV A max usman 100.3 cm/sec MV E/A 0.77 MV dec time 0.25 sec Ao V2 max 123.4 cm/sec Ao max PG 6.1 mmHg Ao max PG (full) 3.0 mmHg LV V1 max PG 3.1 mmHg LV V1 max 87.6 cm/sec
[2016-07-07] MEDS: TRAZODONE HCL 50 MG TAB PO SCH (21:23)
[2016-07-07] MEDS: DiphenhydrAMINE HCL 50 MG/ML VIAL IV PRN (22:10)
[2016-07-07] MEDS ORDERED: HALOPERIDOL LACTATE 5 MG/ML 1 ML VIAL IM STA (22:58)
[2016-07-08] VITALS (7 sets, daily range): BP systolic 124–154; BP diastolic 80–93; PULSE 91–134; TEMP 36.4–37.3; O2SAT 94–99
[2016-07-08] MEDS: LORAZEPAM 2 MG/ML 1 ML VIAL IV PRN ×9 (00:55→18:21)
[2016-07-08] MEDS ORDERED: CEFTRIAXONE SOD INJ 1 GM in DEXTROSE 5% ADD-VANTAGE 50ML 50 ML IV SCH (01:00)
[2016-07-08] MEDS: DiphenhydrAMINE HCL 50 MG/ML VIAL IV PRN (02:59)
[2016-07-08] MEDS ORDERED: HALOPERIDOL LACTATE 5 MG/ML 1 ML VIAL IM STA (04:40)
[2016-07-08] MEDS ORDERED: NURSING VERBAL MED ORDER ONE ×2 (04:45→10:45)
[2016-07-08] MEDS: MoRPHine SULFATE 2 MG/ML CARP IV PRN (05:16)
[2016-07-08] MEDS: METOPROLOL TARTRATE 1 MG/ML VIAL IV PRN ×2 (06:11→10:11)
[2016-07-08 07:05] LABS: HEMATOCRIT 43.2 % (42-52); MEAN CELL VOLUME 91.5 fL (80-100); MEAN CORPUSCULAR HEMOGLOBIN 32.2 pg (25-34); MEAN CORPUSCULAR HGB CONC 35.2 g/dl (32-36); RED BLOOD COUNT 4.72 M/uL (4.7-6.1); WHITE BLOOD COUNT 7.92 K/uL (4.8-10.8)
[2016-07-08 07:06] LABS: MEAN PLATELET VOLUME 9.9 fL (7.4-10.4); PLATELET COUNT 99 K/uL (130-400)
[2016-07-08 07:19] LABS: INR 1.1 (0.9-1.1); PROTHROMBIN TIME (PATIENT) 11.4 SECONDS (9.0-12.0)
[2016-07-08] MEDS: CHLORDIAZEPOXIDE 25 MG CAP PO SCH ×3 (07:36→20:53)
[2016-07-08] MEDS: DOCUSATE SODIUM 100 MG CAP PO SCH ×2 (07:37→20:52)
[2016-07-08] MEDS: THIAMINE HCL 100 MG TAB PO SCH (07:37)
[2016-07-08 07:38] LABS: BASO % 0.3 %; BASO ABS # 0.02 K/uL (0-0.2); COMPLETE YES; EOS % 0.3 %; IG% 0.5 %; LYMPH ABS # 0.95 K/uL (1.2-3.4); MONO % 12.2 %; NEUT % 74.7 %
[2016-07-08] MEDS: ENOXAPARIN 40 MG/0.4 ML SYR SC SCH (07:38)
[2016-07-08] MEDS: CYANOCOBALAMIN 500 MCG TAB (VIT B-12) PO SCH (07:38)
[2016-07-08] MEDS: CHOLECALCIFEROL 1000 INTER.UNIT TAB PO SCH (07:38)
[2016-07-08] MEDS: MAGNESIUM OXIDE 400 MG TAB PO SCH ×2 (07:39→20:53)
[2016-07-08] MEDS: NSS + 20MEQ KCL 1000ML 1,000 ML IV SCH ×2 (07:40→17:05)
[2016-07-08 07:41] LABS: BUN/CREATININE RATIO 5.7 (10-20); CREATININE 0.75 mg/dl (0.60-1.40); MAGNESIUM 1.9 mg/dl (1.8-2.4); POTASSIUM 3.4 mmol/L (3.5-5.1)
[2016-07-08] MEDS: MULTI-VITAMIN INFUSION INJ 10 ML, THIAMINE HCL INJ 100 MG, FoLIC ACID INJ 1 MG in SODIU... IV SCH (07:42)
[2016-07-08] MEDS: MULTIVITAMIN TAB PO SCH (07:43)
--- NOTE | 2016-07-08 07:55 | Hospitalist Progress Note ---
Hospitalist Progress Note Date of Service Jul 08, 2016. (Lisa Field PA-C) Subjective Pt evaluation today including: conversation w/ patient, physical exam, chart review, lab review, review of studies Pain: None PO Intake: Minimal, medications Voiding: incontinence The patient was seen and examined this morning. Per nursing the pt has been extremely aggitated overnight. Required multiple doses of ativan and also haldol 5 mg IM x 2. He is currently disoriented although is attempting to answer my questions. He is incontinent of urine. Pt was not attached to IVFs overnight as he was aggitated and wouldn't allow the fluids to run. Nursing has the banana bag running in currently and pt is letting the IV alone. He denies sleeping at all overnight, denies pain. Pt reports shakiness and anxious feeling currently. He is unaware that he is incontinent of urine. Additional Comments: Unobtainable due to disorientation. (Lisa Field PA-C) Objective Vital Signs Date Time Temp Pulse Resp B/P Pulse Ox O2 Delivery O2 Flow Rate FiO2 07/08/16 07:28 37.3 103 18 128/89 94 Room Air 07/08/16 06:11 143 138/90 07/08/16 05:07 36.9 134 21 138/90 99 Room Air 07/08/16 04:00 Room Air 07/07/16 23:59 Room Air 07/07/16 23:30 36.9 102 18 156/84 95 Room Air 07/07/16 20:00 95 Room Air 07/07/16 19:22 36.6 102 18 150/91 92 Room Air 07/07/16 16:00 97 Room Air 07/07/16 15:18 37.1 98 22 137/86 97 Room Air 07/07/16 11:20 36.5 99 22 144/87 96 Room Air (Lisa Field PA-C) Physical Exam General Appearance: + mild distress, + pertinent finding (diaphoretic) Eyes: PERRL, EOMI ENT: hearing grossly normal, pharynx normal Respiratory/Chest: chest non-tender, lungs clear, no respiratory distress, no accessory muscle use Cardiovascular: + tachycardia Abdomen: normal bowel sounds, non tender, soft Extremities: no pedal edema, no calf tenderness Neurologic/Psychiatric: + disoriented, + pertinent finding (incontinent of urine. Able to follow commands, speech is clear. ) Skin: + diaphoresis (Lisa Field PA-C) Laboratory Results Last 24 Hours Test 07/07/16 13:47 07/08/16 06:37 Total Creatine Kinase 1279 U/L Creatine Kinase MB 5.1 ng/ml Creatine Kinase MB Ratio 0.4 Troponin I < 0.015 ng/ml White Blood Count 7.92 K/uL Red Blood Count 4.72 M/uL Hemoglobin 15.2 g/dL Hematocrit 43.2 % Mean Corpuscular Volume 91.5 fL Mean Corpuscular Hemoglobin 32.2 pg Mean Corpuscular Hemoglobin Concent 35.2 g/dl Platelet Count 99 K/uL Mean Platelet Volume 9.9 fL Neutrophils (%) (Auto) 74.7 % Lymphocytes (%) (Auto) 12.0 % Monocytes (%) (Auto) 12.2 % Eosinophils (%) (Auto) 0.3 % Basophils (%) (Auto) 0.3 % Neutrophils # (Auto) 5.92 K/uL Lymphocytes # (Auto) 0.95 K/uL Monocytes # (Auto) 0.97 K/uL Eosinophils # (Auto) 0.02 K/uL Basophils # (Auto) 0.02 K/uL RDW Standard Deviation 48.1 fL RDW Coefficient of Variation 14.3 % Immature Granulocyte % (Auto) 0.5 % Immature Granulocyte # (Auto) 0.04 K/uL Prothrombin Time 11.4 SECONDS Prothromb Time International Ratio 1.1 Activated Partial Thromboplast Time 27.1 SECONDS Partial Thromboplastin Ratio 1.0 Sodium Level 138 mmol/L Potassium Level 3.4 mmol/L Chloride Level 104 mmol/L Carbon Dioxide Level 18 mmol/L Anion Gap 16.0 mmol/L Blood Urea Nitrogen 4 mg/dl Creatinine 0.75 mg/dl Est Creatinine Clear Calc Drug Dose 99.8 ml/min Estimated GFR () 124.8 Estimated GFR (Non- 107.7 BUN/Creatinine Ratio 5.7 Random Glucose 83 mg/dl Calcium Level 9.0 mg/dl Magnesium Level 1.9 mg/dl Total Bilirubin 2.4 mg/dl Direct Bilirubin 0.7 mg/dl Aspartate Amino Transf (AST/SGOT) 173 U/L Alanine Aminotransferase (ALT/SGPT) 85 U/L Alkaline Phosphatase 63 U/L Total Protein 7.8 gm/dl Albumin 3.6 gm/dl (Lisa Field, BRI) Assessment and Plan This is a 50 yo M with PMHx alcohol abuse with seizure secondary to this , paroxysmal afib, Seizure secondary to alcohol intoxication - Going through severe withdrawal at this time with increased aggitation, incontinence, disorientation. - Order another dose of librium 25 mg Now stat, will make it 25 mg TID - Ativan 1 mg IV prn Q1H available - Consider Wernickes encephalopathy with severe alcohol abuse. Last drink was on Wednesday at 9 pm, but unsure as to how long the pt had been sober before this point. Will increase thiamine to 250 mg IV TID and infuse over 30 minutes. No use in sending thiamine blood level at this time as he's been getting replacement for the last 3 days. - The patient is talking, able to follow commands, and is protecting his airway - at this time will continue in tele, if worsening detox with consider transfer to the ICU. - Continue banana bag daily followed by NSS at 125 mL/hr - CT of the head was negative; no new seizure like activity overnight. - Neurology consult if the pt has recurrence of seizure like activity - PT/OT consulted - Will continue ceftriaxone empirically for the next day due to risk for pulmonary involvement d/t seizure like activity - RUQ u/s : shows echogenic liver consistent with hepatic steatosis - MVI, folic acid Electrolyte Abnormalities: Hypokalemia - replaced with 40 meq again this morning for K+ = 3.1 Hypomagnesemia - resolved currently, required replacement over the past 2 days - this would also possibly rule in a diagnosis of Wernicke's. Hypophosphatemia - 2.4 yesterday, other electrolytes balancing out so no replacement at this time. Paroxysmal afib - Overnight was in sinus tach HR up to 126, currently around HR ~110. - Trending cardiac enzymes: 0.015 --> 0.024 --> 0.028 - Echo completed on 07/07/14 showing Grade I diastolic dysfunction with preserved EF 60-65%. Summary * Normal biventricular systolic function. * Normal chamber dimensions. * No significant valvular abnormalities. * Left ventricular diastolic dysfunction. Rhabdomyolysis - Continue supportive treatment IVFs - CK has climbed from 200s up 1279 - leveling off now despite not getting IVFs overnight due to aggitation - Cont IVFs as able to - encourage PO water intake when aggitation resolves DVT ppx: OOB CODE STATUS: Full Code Disposition: From home, discharge when medically stable. (Lisa Field, LUZ MARIAC) Reviewed: Pt Seen/Exam by Me (Komal Solis, DO) History Pt seen initially earlier this AM for concern from PA and nursing about worsening withdrawal. Pt required more ativan and also haldol overnight for agitation. HR has been elevated. Pt has been less responsive. Has urinated himself, but no concerns from nursing about a seizure. Pt is not and has not been in respiratory distress. Pt unable to respond to ROS at that time. Stopped in to see pt again around 11:45a after increased ativan and librium dosing. He has not yet received increased thiamine dosing. Pt is more alert and cooperative. Increased ativan dosing is lasting longer. He states he is feeling much improved and feels hungry for lunch. Still shaky. No chest pain or SOB. Agree with HPI/ROS as noted. (Komal Solis, DO) General Appearance: WD/WN, no apparent distress Respiratory: normal breath sounds, no respiratory distress Cardiovascular: normal peripheral pulses, tachycardia Gastrointestinal: non tender, soft Extremities: non-tender, no pedal edema Neurologic/Psychiatric: alert, oriented x 3, other (tremulous) Skin Characteristics: normal color, warm/dry (Komal Solis, DO) Assessment/Plan Agree with plan as outlined above Mildly elevated temp and WBC in the setting of alcohol withdrawal, will d/c tomorrow if stable Last alcohol was 07/05 at 9p, still inside the window for withdrawal and it does appear that this has happened overnight Concern for possible Wernicke's, however pt has improved prior to increased thiamine dosing. Will still dose it for now, but less likely a concern given improvement with increased ativan and librium Pt has been willing to work with outpt rehab services in the recent past per CM , will continue to discuss as he improves (Komal Solis, DO)
[2016-07-08] MEDS ORDERED: POTASSIUM CHLORIDE 10 MEQ TABCR PO ONE (08:00)
[2016-07-08] MEDS ORDERED: POTASSIUM CHLORIDE 20 MEQ/15 ML UDC PO ONE (08:15)
[2016-07-08] MEDS ORDERED: LORAZEPAM 2 MG/ML 1 ML VIAL IV STA (08:20)
[2016-07-08] MEDS ORDERED: CHLORDIAZEPOXIDE 25 MG CAP PO STA (08:20)
[2016-07-08] MEDS ORDERED: LORAZEPAM INJ 2 MG in SYRINGE 1 ML IV PRN (11:00)
[2016-07-08] MEDS: THIAMINE HCL INJ 250 MG in SODIUM CHLORIDE 0.9% 50ML 50 ML IV SCH ×2 (12:04→17:04)
[2016-07-08] MEDS ORDERED: CHLORDIAZEPOXIDE 25 MG CAP PO SCH (14:00)
[2016-07-08] MEDS: TRAZODONE HCL 50 MG TAB PO SCH (20:52)
[2016-07-08] MEDS ORDERED: NYSTATIN SUSP 500,000 U/5 ML UDC PO ONE (21:23)
[2016-07-09] VITALS (7 sets, daily range): BP systolic 122–138; BP diastolic 75–93; PULSE 86–97; TEMP 36.6–37.1; O2SAT 92–97
[2016-07-09] MEDS: NSS + 20MEQ KCL 1000ML 1,000 ML IV SCH ×4 (00:19→23:04)
[2016-07-09 07:14] LABS: HEMATOCRIT 40.1 % (42-52); MEAN CELL VOLUME 92.8 fL (80-100); MEAN CORPUSCULAR HEMOGLOBIN 31.7 pg (25-34); MEAN CORPUSCULAR HGB CONC 34.2 g/dl (32-36); RED BLOOD COUNT 4.32 M/uL (4.7-6.1)
[2016-07-09 07:34] LABS: BASO % 0.5 %; BASO ABS # 0.03 K/uL (0-0.2); COMPLETE YES; EOS % 1.2 %; LYMPH % 24.5 %; LYMPH ABS # 1.47 K/uL (1.2-3.4); MONO % 11.8 %; PLATELET COUNT 96 K/uL (130-400)
[2016-07-09 07:39] LABS: BUN/CREATININE RATIO 7.2 (10-20); CALCIUM 8.7 mg/dl (8.5-10.1); CREATININE 0.72 mg/dl (0.60-1.40); MAGNESIUM 1.8 mg/dl (1.8-2.4); POTASSIUM 3.3 mmol/L (3.5-5.1)
[2016-07-09] MEDS: CHLORDIAZEPOXIDE 25 MG CAP PO SCH ×3 (08:48→21:03)
[2016-07-09] MEDS: THIAMINE HCL INJ 250 MG in SODIUM CHLORIDE 0.9% 50ML 50 ML IV SCH ×3 (08:48→17:40)
[2016-07-09] MEDS: MULTI-VITAMIN INFUSION INJ 10 ML, THIAMINE HCL INJ 100 MG, FoLIC ACID INJ 1 MG in SODIU... IV SCH (08:49)
[2016-07-09] MEDS: MULTIVITAMIN TAB PO SCH (08:50)
[2016-07-09] MEDS: MAGNESIUM OXIDE 400 MG TAB PO SCH ×2 (08:50→19:45)
[2016-07-09] MEDS: CHOLECALCIFEROL 1000 INTER.UNIT TAB PO SCH (08:50)
[2016-07-09] MEDS: NYSTATIN SUSP 500,000 U/5 ML UDC PO SCH ×4 (08:51→19:44)
[2016-07-09] MEDS: CYANOCOBALAMIN 500 MCG TAB (VIT B-12) PO SCH (08:51)
[2016-07-09] MEDS: DOCUSATE SODIUM 100 MG CAP PO SCH ×2 (08:51→19:45)
[2016-07-09] MEDS: ENOXAPARIN 40 MG/0.4 ML SYR SC SCH (08:52)
--- NOTE | 2016-07-09 16:13 | Progress Note ---
Subjective Date of Service: Jul 09, 2016. Subjective Pt evaluation today including: conversation w/ patient Pt has been sleeping for most of the day. He did wake up to eat both breakfast and lunch, although nursing did need to assist him at times. Pt denies fever, SOB, chest pain, abd pain, n/v/c/d, LE pain or swelling. He states he is still a bit shaky at times, but much better than prior. No headache. ROS as noted above, otherwise neg. Problem List Medical Problems: (1) Alcohol abuse Status: Acute (2) Alcohol intoxication Status: Acute (3) Alcohol withdrawal Status: Acute (4) Alcohol withdrawal Status: Acute (5) Alcohol withdrawal Status: Acute (6) Alcohol withdrawal Status: Acute (7) Alcohol withdrawal Status: Acute (8) Alcoholic Status: Acute (9) Alcoholic hepatitis Status: Acute (10) Anxiety Status: Acute (11) Atrial fibrillation with RVR Status: Acute (12) Chest pain Status: Acute (13) Elevated LFTs Status: Acute (14) Facial laceration Status: Acute (15) Fall Status: Acute (16) High anion gap metabolic acidosis Status: Acute (17) Hypokalemia Status: Acute (18) Hypophosphatemia Status: Acute (19) Lip laceration Status: Acute (20) Malnutrition Status: Acute (21) Seizure Status: Acute (22) Thrombocytopenia Status: Acute Objective Vital Signs Date Time Temp Pulse Resp B/P Pulse Ox O2 Delivery O2 Flow Rate FiO2 07/09/16 15:04 37.1 91 18 126/75 92 Room Air 07/09/16 12:00 Room Air 07/09/16 11:14 36.7 91 19 122/81 96 Room Air 07/09/16 08:00 Room Air 07/09/16 07:10 36.6 91 20 133/89 97 Room Air 07/09/16 04:00 Room Air 07/09/16 03:57 36.9 97 17 131/89 96 Room Air 07/08/16 23:59 Room Air 07/08/16 23:07 36.4 94 19 134/92 96 Room Air 07/08/16 20:00 Room Air 07/08/16 19:10 37.1 95 22 126/80 95 Room Air 07/08/16 16:07 36.5 91 22 124/82 97 Room Air 07/08/16 16:00 97 Room Air Physical Exam Comments: General Appearance: WD/WN, no apparent distress Respiratory: normal breath sounds, no respiratory distress Cardiovascular: normal peripheral pulses, reg rate and rhythm Gastrointestinal: non tender, soft Extremities: non-tender, no pedal edema Neurologic/Psychiatric: alert, oriented x 3, other (drowsy, conversation is appropriate, no tremor) Skin Characteristics: normal color, warm/dry Laboratory Results Last 24 Hours Test 07/09/16 06:30 White Blood Count 6.00 K/uL Red Blood Count 4.32 M/uL Hemoglobin 13.7 g/dL Hematocrit 40.1 % Mean Corpuscular Volume 92.8 fL Mean Corpuscular Hemoglobin 31.7 pg Mean Corpuscular Hemoglobin Concent 34.2 g/dl Platelet Count 96 K/uL Mean Platelet Volume 10.0 fL Neutrophils (%) (Auto) 61.0 % Lymphocytes (%) (Auto) 24.5 % Monocytes (%) (Auto) 11.8 % Eosinophils (%) (Auto) 1.2 % Basophils (%) (Auto) 0.5 % Neutrophils # (Auto) 3.66 K/uL Lymphocytes # (Auto) 1.47 K/uL Monocytes # (Auto) 0.71 K/uL Eosinophils # (Auto) 0.07 K/uL Basophils # (Auto) 0.03 K/uL RDW Standard Deviation 48.3 fL RDW Coefficient of Variation 14.2 % Immature Granulocyte % (Auto) 1.0 % Immature Granulocyte # (Auto) 0.06 K/uL Sodium Level 142 mmol/L Potassium Level 3.3 mmol/L Chloride Level 109 mmol/L Carbon Dioxide Level 20 mmol/L Anion Gap 13.0 mmol/L Blood Urea Nitrogen 5 mg/dl Creatinine 0.72 mg/dl Est Creatinine Clear Calc Drug Dose 113.7 ml/min Estimated GFR () 127.0 Estimated GFR (Non- 109.5 BUN/Creatinine Ratio 7.2 Random Glucose 66 mg/dl Calcium Level 8.7 mg/dl Magnesium Level 1.8 mg/dl Total Bilirubin 2.0 mg/dl Direct Bilirubin 0.6 mg/dl Aspartate Amino Transf (AST/SGOT) 165 U/L Alanine Aminotransferase (ALT/SGPT) 80 U/L Alkaline Phosphatase 52 U/L Total Protein 6.7 gm/dl Albumin 3.0 gm/dl Assessment and Plan This is a 50 yo M with PMHx alcohol abuse with seizure secondary to this, paroxysmal afib Seizure secondary to alcohol intoxication Last alcohol was 07/05 at 9p - severe withdrawal yesterday, but has been sleeping all day today and without need for ativan since 07/08 1830 Will decrease librium to 25mg TID and continue with PRN ativan Concern for possible Wernicke's yesterday, however pt has improved prior to increased thiamine dosing. Will still finish course of thiamine, but less likely a concern given improvement with increased ativan and librium. Pt had already received several doses of routine thiamine since admission therefore levels were not checked - Continue banana bag daily followed by NSS at 125 mL/hr - CT of the head was negative; no new seizure like activity - Neurology consult if the pt has recurrence of seizure like activity - PT/OT consulted -Ceftriaxone was started on admission due to risk for pulmonary involvement d/t seizure like activity, CXR neg of admission. This has been held without s/sx of PNA - RUQ u/s : shows echogenic liver consistent with hepatic steatosis - MVI, folic acid Electrolyte Abnormalities: Hypokalemia - replace and monitor Hypomagnesemia - replace and monitor Hypophosphatemia - monitor Paroxysmal afib - Overnight was in sinus tach HR up to 126, currently around HR ~110. - Trending cardiac enzymes: 0.015 --> 0.024 --> 0.028 - Echo completed on 07/07/14 showing Grade I diastolic dysfunction with preserved EF 60-65%. Summary * Normal biventricular systolic function. * Normal chamber dimensions. * No significant valvular abnormalities. * Left ventricular diastolic dysfunction. Rhabdomyolysis - Continue supportive treatment IVF -CPK elevated, monitor - Cont IVFs DVT ppx: OOB CODE STATUS: Full Code Pt has been willing to work with outpt rehab services in the recent past per CM , will continue to discuss as he improves Will need to have a serious discussion with pt once he is more lucid regarding his alcohol use. He has had increased LFTs and appears much worse than my prior encounters with him.
[2016-07-09] MEDS: TRAZODONE HCL 50 MG TAB PO SCH (19:44)
[2016-07-09] MEDS: MoRPHine SULFATE 2 MG/ML CARP IV PRN (23:08)
[2016-07-10] VITALS (10 sets, daily range): BP systolic 96–138; BP diastolic 63–92; PULSE 82–107; TEMP 36.2–37; O2SAT 90–97
[2016-07-10] MEDS: MoRPHine SULFATE 2 MG/ML CARP IV PRN ×2 (03:40→18:18)
[2016-07-10] MEDS: NSS + 20MEQ KCL 1000ML 1,000 ML IV SCH ×2 (06:28→16:08)
[2016-07-10] MEDS: THIAMINE HCL INJ 250 MG in SODIUM CHLORIDE 0.9% 50ML 50 ML IV SCH ×3 (08:29→17:16)
[2016-07-10] MEDS: CHLORDIAZEPOXIDE 25 MG CAP PO SCH ×3 (08:34→21:28)
[2016-07-10] MEDS: MULTI-VITAMIN INFUSION INJ 10 ML, THIAMINE HCL INJ 100 MG, FoLIC ACID INJ 1 MG in SODIU... IV SCH (08:34)
[2016-07-10] MEDS: NYSTATIN SUSP 500,000 U/5 ML UDC PO SCH ×4 (08:36→21:30)
[2016-07-10] MEDS: CYANOCOBALAMIN 500 MCG TAB (VIT B-12) PO SCH (08:37)
[2016-07-10] MEDS: MAGNESIUM OXIDE 400 MG TAB PO SCH ×2 (08:37→21:30)
[2016-07-10] MEDS: DOCUSATE SODIUM 100 MG CAP PO SCH ×2 (08:37→21:28)
[2016-07-10] MEDS: CHOLECALCIFEROL 1000 INTER.UNIT TAB PO SCH (08:37)
[2016-07-10] MEDS: ENOXAPARIN 40 MG/0.4 ML SYR SC SCH (08:37)
[2016-07-10] MEDS: MULTIVITAMIN TAB PO SCH (08:38)
[2016-07-10] MEDS ORDERED: POTASSIUM CHLORIDE 10 MEQ TABCR PO STA (10:07)
[2016-07-10] MEDS: LIDODERM (LIDOCAINE) PATCH 5% TD SCH (10:15)
[2016-07-10] MEDS: KETOROLAC TROMETHAMINE 30 MG/ML VIAL IV PRN (13:09)
--- NOTE | 2016-07-10 18:40 | Progress Note ---
Subjective Subjective Date of Service: Jul 10, 2016. Pt evaluation today including: conversation w/ patient, physical exam, chart review, review of studies, review of inpatient medication list Notes: feels shaky and weak Problem List Medical Problems: (1) Alcohol abuse Status: Acute (2) Alcohol intoxication Status: Acute (3) Alcohol withdrawal Status: Acute (4) Alcohol withdrawal Status: Acute (5) Alcohol withdrawal Status: Acute (6) Alcohol withdrawal Status: Acute (7) Alcohol withdrawal Status: Acute (8) Alcoholic Status: Acute (9) Alcoholic hepatitis Status: Acute (10) Anxiety Status: Acute (11) Atrial fibrillation with RVR Status: Acute (12) Chest pain Status: Acute (13) Elevated LFTs Status: Acute (14) Facial laceration Status: Acute (15) Fall Status: Acute (16) High anion gap metabolic acidosis Status: Acute (17) Hypokalemia Status: Acute (18) Hypophosphatemia Status: Acute (19) Lip laceration Status: Acute (20) Malnutrition Status: Acute (21) Seizure Status: Acute (22) Thrombocytopenia Status: Acute Review of Systems Constitutional: No fever ENT: No hearing loss Cardiac: No chest pain Abdomen: No pain Neurologic: No memory loss Endo: No fatigue Skin: No rash Physical Exam Vital Signs Vital Signs Past 24 Hours: Date Time Temp Pulse Resp B/P Pulse Ox O2 Delivery O2 Flow Rate FiO2 07/10/16 16:00 94 Room Air 07/10/16 14:13 36.7 82 18 133/88 94 Room Air 07/10/16 12:10 37.0 88 18 97 07/10/16 11:28 36.7 87 20 133/89 96 Room Air 07/10/16 08:03 36.9 94 20 133/92 97 Room Air 07/10/16 08:00 Room Air 07/10/16 04:00 Room Air 07/10/16 03:35 36.9 82 18 135/90 96 Room Air 07/09/16 23:59 Room Air 07/09/16 23:10 36.9 94 20 130/88 97 Room Air 07/09/16 20:00 Room Air 07/09/16 19:37 36.7 93 18 138/93 97 Room Air 07/09/16 19:02 37.0 86 18 126/87 95 Room Air Physical Exam: General Appearance: WD/WN, no apparent distress Eyes: bilateral eyes normal inspection ENT: hearing grossly normal, pharynx normal Neck: supple, no JVD Respiratory/Chest: chest non-tender, normal breath sounds Cardiovascular: regular rate, rhythm, no gallop Abdomen: normal bowel sounds, soft Extremities: normal range of motion, normal inspection Neurologic/Psychiatric: no motor/sensory deficits, oriented x 3 Skin: normal color Medications Medications: Current Inpatient Medications Medications (Trade) Dose Ordered Sig/Dyan Route Start Time Stop Time Status Last Admin Dose Admin Enoxaparin Sodium 40 mg 40 mg Q24H SC 07/07/16 09:00 08/06/16 08:59 07/10/16 08:37 40 MG Potassium Chloride/Sodium Chloride (Nss + 20meq KCl 1000ml) 1,000 ml @ 125 mls/hr Q8H IV 07/07/16 00:30 08/06/16 00:29 07/10/16 16:08 125 MLS/HR Zolpidem Tartrate (Ambien Tab) 5 mg HSZ PRN PO 07/06/16 21:15 08/05/16 21:14 Nitroglycerin (Nitrostat Tab) 0.4 mg UD PRN SL 07/06/16 21:15 08/05/16 21:14 Folic Acid (Folvite Tab) 1 mg DAILY PO 07/07/16 09:00 08/06/16 08:59 07/10/16 08:37 1 MG Magnesium Oxide (Mag-Ox Tab) 400 mg BID PO 07/07/16 09:00 08/06/16 08:59 07/10/16 08:37 400 MG Multivitamins (Multivitamin Tab) 1 tab DAILY PO 07/07/16 09:00 08/06/16 08:59 07/10/16 08:38 1 TAB Trazodone HCl (Desyrel Tab) 50 mg HS PO 07/07/16 21:00 08/06/16 20:59 07/09/16 19:44 50 MG Triamcinolone Acetonide (Nasacort Allergy 24hr) 2 sprays DAILY PRN NA 07/06/16 21:15 08/05/16 21:14 Cholecalciferol (Vitamin D Tab) 2,000 inter.unit QAM PO 07/07/16 09:00 08/06/16 08:59 07/10/16 08:37 2,000 INTER.UNIT Cyanocobalamin (Vitamin B-12 Tab) 1,000 mcg QAM PO 07/07/16 09:00 08/06/16 08:59 07/10/16 08:37 1,000 MCG Magnesium Hydroxide (Milk Of Magnesia Susp) 30 ml Q6H PRN PO 07/06/16 21:15 08/05/16 21:14 Bisacodyl (Dulcolax Supp) 10 mg DAILY PRN ME 07/06/16 21:15 08/05/16 21:14 Diphenhydramine HCl (Benadryl Inj) 25 mg Q4H PRN IV 07/06/16 21:15 08/05/16 21:14 07/08/16 02:59 25 MG Al Hydrox/Mg Hydrox/ Simethicone 15 ml 15 ml Q4H PRN PO 07/06/16 21:15 08/05/16 21:14 07/07/16 16:15 15 ML Promethazine HCl/ Sodium Chloride (Phenergan Inj/ Nss 50ml) 50.5 ml @ 202 mls/hr Q4H PRN IV 07/06/16 21:15 08/05/16 21:14 Ondansetron HCl (Zofran Inj) 4 mg Q6H PRN IV 07/06/16 21:15 08/05/16 21:14 Docusate Sodium (coLACE CAP) 100 mg BID PO 07/07/16 09:00 08/06/16 08:59 07/10/16 08:37 100 MG Morphine Sulfate (MoRPHine SULFATE INJ) 2 mg Q2H PRN IV 07/06/16 21:15 07/20/16 21:14 07/10/16 18:18 2 MG Ketorolac Tromethamine (Toradol Inj) 30 mg Q6H PRN IV 07/06/16 21:15 07/11/16 21:14 07/10/16 13:09 30 MG Metoprolol Tartrate 5 mg 5 mg Q4 PRN IV 07/06/16 22:00 08/05/16 21:59 07/08/16 10:11 5 MG Multivitamins 10 ml/Thiamine HCl 100 mg/Folic Acid 1 mg/Sodium Chloride 1,011.2 ml @ 125 mls/ hr DAILY@0900 IV 07/07/16 09:00 08/06/16 08:59 07/10/16 08:34 125 MLS/HR Thiamine HCl 250 mg/Sodium Chloride 52.5 ml @ 208 mls/hr TIDM IV 07/08/16 11:30 08/07/16 11:29 07/10/16 17:16 208 MLS/HR Lorazepam/Syringe (Ativan Inj/ Syringe) 2 ml @ 1 mls/min Q1H PRN IV 07/08/16 11:00 08/07/16 10:59 Lorazepam (Ativan Inj) 2 mg Q1H PRN IV 07/08/16 11:00 08/07/16 10:59 07/08/16 18:21 2 MG Nystatin (Mycostatin Susp) 5 ml QID PO 07/09/16 09:00 07/19/16 08:59 07/10/16 08:36 5 ML Chlordiazepoxide (Librium Cap) 25 mg TID PO 07/09/16 21:00 08/08/16 20:59 07/10/16 14:35 25 MG Lidocaine (Lidoderm Patch 5%) 1 patch QAM TD 07/10/16 10:15 08/09/16 10:14 07/10/16 10:15 1 PATCH Miscellaneous (Remove Lidoderm Patch) 1 ea DAILY@21 N/A 07/10/16 21:00 08/09/16 20:59 Assessment and Plan This is a 50 yo M with PMHx alcohol abuse with seizure secondary to this, paroxysmal afib Seizure secondary to alcohol intoxication Last alcohol was 07/05 at 9p severe withdrawal symptoms few days ago, improved with librium prn continue librium to 25mg TID and continue with PRN ativan Concern for possible Wernicke's, however pt has improved prior to increased thiamine dosing. finish course of thiamine, Continue NSS at 125 mL/hr PT/OT consulted Ceftriaxone was started on admission due to risk for pulmonary involvement d/t seizure like activity, CXR neg of admission. This has been held without s/sx of PNA RUQ u/s : shows echogenic liver consistent with hepatic steatosis MVI, folic acid Electrolyte Abnormalities: Hypokalemia - replace and monitor Hypomagnesemia - replace and monitor Hypophosphatemia - monitor Paroxysmal afib currently NSR in around in 80`s Echo completed on 07/07/14 showing Grade I diastolic dysfunction with preserved EF 60-65%. Summary * Normal biventricular systolic function. * Normal chamber dimensions. * No significant valvular abnormalities. * Left ventricular diastolic dysfunction. Rhabdomyolysis Continue supportive treatment IVF DVT proph: OOB CODE STATUS: Full Code Pt has been willing to work with outpt rehab services in the recent past per CM , will continue to discuss as he improves patient wants to follow with alcohol rehab for short term, he does not want to drink alcohol anymore
[2016-07-10] MEDS: GUAIFENESIN/CODEINE 200MG/20MG 10ML UDC PO PRN (21:28)
[2016-07-10] MEDS: TRAZODONE HCL 50 MG TAB PO SCH (21:29)
[2016-07-11] MEDS: NSS + 20MEQ KCL 1000ML 1,000 ML IV SCH ×3 (00:20→09:07)
[2016-07-11] MEDS: KETOROLAC TROMETHAMINE 30 MG/ML VIAL IV PRN ×2 (03:25→14:45)
[2016-07-11] MEDS: MoRPHine SULFATE 2 MG/ML CARP IV PRN ×2 (05:01→21:35)
[2016-07-11 07:31] VITALS: BP 141/96; PULSE 76; TEMP 37; O2SAT 95
[2016-07-11] MEDS: DOCUSATE SODIUM 100 MG CAP PO SCH ×2 (08:08→21:11)
[2016-07-11] MEDS: CHOLECALCIFEROL 1000 INTER.UNIT TAB PO SCH (08:08)
[2016-07-11] MEDS: MAGNESIUM OXIDE 400 MG TAB PO SCH ×2 (08:08→21:13)
[2016-07-11] MEDS: NYSTATIN SUSP 500,000 U/5 ML UDC PO SCH ×4 (08:08→21:12)
[2016-07-11] MEDS: LIDODERM (LIDOCAINE) PATCH 5% TD SCH (08:09)
[2016-07-11] MEDS: CYANOCOBALAMIN 500 MCG TAB (VIT B-12) PO SCH (08:09)
[2016-07-11] MEDS: MULTIVITAMIN TAB PO SCH (08:09)
[2016-07-11] MEDS: ENOXAPARIN 40 MG/0.4 ML SYR SC SCH (08:10)
[2016-07-11] MEDS: THIAMINE HCL INJ 250 MG in SODIUM CHLORIDE 0.9% 50ML 50 ML IV SCH (08:18)
[2016-07-11] MEDS: CHLORDIAZEPOXIDE 25 MG CAP PO SCH ×3 (08:18→21:11)
[2016-07-11] MEDS: GUAIFENESIN/CODEINE 200MG/20MG 10ML UDC PO PRN ×2 (08:18→14:49)
[2016-07-11] MEDS: MULTI-VITAMIN INFUSION INJ 10 ML, THIAMINE HCL INJ 100 MG, FoLIC ACID INJ 1 MG in SODIU... IV SCH (09:07)
[2016-07-11] MEDS ORDERED: POTASSIUM CHLORIDE 10 MEQ TABCR PO STA (10:10)
[2016-07-11] MEDS ORDERED: FUROSEMIDE 40 MG/4 ML VIAL IV STA (10:10)
--- NOTE | 2016-07-11 10:28 | DIAGNOSTIC IMAGING REPORT ---
CHEST ONE VIEW PORTABLE CLINICAL HISTORY: Congestive failure COMPARISON STUDY: 07/06/2016 FINDINGS: The heart is at the upper limits of normal in size. There is slight interstitial prominence, likely related to technical factors. There is no overt failure.. There is no focal pulmonary consolidation. There are no pleural effusions.[ IMPRESSION: No active disease in the chest. Electronically signed by: Alfred Cardenas M.D. 07/11/2016 10:26 AM Dictated Date/Time: 07/11/2016 10:25 AM
[2016-07-11] MEDS ORDERED: FUROSEMIDE INJ 40 MG in SYRINGE 0 ML IV ONE (10:30)
[2016-07-11 12:05] LABS: BUN/CREATININE RATIO 8.5 (10-20); CALCIUM 8.8 mg/dl (8.5-10.1); CREATININE 0.94 mg/dl (0.60-1.40); POTASSIUM 3.6 mmol/L (3.5-5.1)
--- NOTE | 2016-07-11 14:08 | Progress Note ---
Subjective Subjective Date of Service: Jul 11, 2016. Pt evaluation today including: conversation w/ patient, physical exam, chart review, review of studies, review of inpatient medication list Problem List Medical Problems: (1) Alcohol abuse Status: Acute (2) Alcohol intoxication Status: Acute (3) Alcohol withdrawal Status: Acute (4) Alcohol withdrawal Status: Acute (5) Alcohol withdrawal Status: Acute (6) Alcohol withdrawal Status: Acute (7) Alcohol withdrawal Status: Acute (8) Alcoholic Status: Acute (9) Alcoholic hepatitis Status: Acute (10) Anxiety Status: Acute (11) Atrial fibrillation with RVR Status: Acute (12) Chest pain Status: Acute (13) Elevated LFTs Status: Acute (14) Facial laceration Status: Acute (15) Fall Status: Acute (16) High anion gap metabolic acidosis Status: Acute (17) Hypokalemia Status: Acute (18) Hypophosphatemia Status: Acute (19) Lip laceration Status: Acute (20) Malnutrition Status: Acute (21) Seizure Status: Acute (22) Thrombocytopenia Status: Acute Review of Systems Constitutional: No fever Eyes: No worsening of vision ENT: No hearing loss Respiratory: No cough Cardiac: No chest pain Abdomen: No pain Male : No dysuria Neurologic: No memory loss Psychiatric: No depression symptoms Endo: No fatigue Physical Exam Vital Signs Vital Signs Past 24 Hours: Date Time Temp Pulse Resp B/P Pulse Ox O2 Delivery O2 Flow Rate FiO2 07/11/16 09:45 Room Air 07/11/16 07:31 37.0 76 18 141/96 95 Room Air 07/10/16 23:59 Room Air 07/10/16 23:47 37.0 82 18 134/91 95 Room Air 07/10/16 21:49 36.2 107 19 128/89 97 Room Air 07/10/16 16:00 94 Room Air 07/10/16 14:13 36.7 82 18 133/88 94 Room Air Physical Exam: General Appearance: WD/WN, no apparent distress Eyes: bilateral eyes normal inspection ENT: hearing grossly normal, pharynx normal Neck: supple, no JVD Respiratory/Chest: chest non-tender, + crackles Cardiovascular: regular rate, rhythm, no gallop Abdomen: normal bowel sounds, no organomegaly Extremities: normal inspection Neurologic/Psychiatric: alert Skin: normal color Medications Medications: Current Inpatient Medications Medications (Trade) Dose Ordered Sig/Dyan Route Start Time Stop Time Status Last Admin Dose Admin Enoxaparin Sodium (Lovenox Inj) 40 mg Q24H SC 07/07/16 09:00 08/06/16 08:59 07/11/16 08:10 40 MG Zolpidem Tartrate (Ambien Tab) 5 mg HSZ PRN PO 07/06/16 21:15 08/05/16 21:14 Nitroglycerin (Nitrostat Tab) 0.4 mg UD PRN SL 07/06/16 21:15 08/05/16 21:14 Folic Acid (Folvite Tab) 1 mg DAILY PO 07/07/16 09:00 08/06/16 08:59 07/11/16 08:10 1 MG Magnesium Oxide (Mag-Ox Tab) 400 mg BID PO 07/07/16 09:00 08/06/16 08:59 07/11/16 08:08 400 MG Multivitamins (Multivitamin Tab) 1 tab DAILY PO 07/07/16 09:00 08/06/16 08:59 07/11/16 08:09 1 TAB Trazodone HCl (Desyrel Tab) 50 mg HS PO 07/07/16 21:00 08/06/16 20:59 07/10/16 21:29 50 MG Triamcinolone Acetonide (Nasacort Allergy 24hr) 2 sprays DAILY PRN NA 07/06/16 21:15 08/05/16 21:14 Cholecalciferol (Vitamin D Tab) 2,000 inter.unit QAM PO 07/07/16 09:00 08/06/16 08:59 07/11/16 08:08 2,000 INTER.UNIT Cyanocobalamin (Vitamin B-12 Tab) 1,000 mcg QAM PO 07/07/16 09:00 08/06/16 08:59 07/11/16 08:09 1,000 MCG Magnesium Hydroxide (Milk Of Magnesia Susp) 30 ml Q6H PRN PO 07/06/16 21:15 08/05/16 21:14 Bisacodyl (Dulcolax Supp) 10 mg DAILY PRN [place] 07/06/16 21:15 08/05/16 21:14 Diphenhydramine HCl (Benadryl Inj) 25 mg Q4H PRN IV 07/06/16 21:15 08/05/16 21:14 07/08/16 02:59 25 MG Al Hydrox/Mg Hydrox/ Simethicone 15 ml 15 ml Q4H PRN PO 07/06/16 21:15 08/05/16 21:14 07/07/16 16:15 15 ML Promethazine HCl/ Sodium Chloride (Phenergan Inj/ Nss 50ml) 50.5 ml @ 202 mls/hr Q4H PRN IV 07/06/16 21:15 08/05/16 21:14 Ondansetron HCl (Zofran Inj) 4 mg Q6H PRN IV 07/06/16 21:15 08/05/16 21:14 Docusate Sodium (coLACE CAP) 100 mg BID PO 07/07/16 09:00 08/06/16 08:59 07/11/16 08:08 100 MG Morphine Sulfate (MoRPHine SULFATE INJ) 2 mg Q2H PRN IV 07/06/16 21:15 07/20/16 21:14 07/11/16 05:01 2 MG Ketorolac Tromethamine (Toradol Inj) 30 mg Q6H PRN IV 07/06/16 21:15 07/11/16 21:14 07/11/16 03:25 30 MG Metoprolol Tartrate 5 mg 5 mg Q4 PRN IV 07/06/16 22:00 08/05/16 21:59 07/08/16 10:11 5 MG Lorazepam/Syringe (Ativan Inj/ Syringe) 2 ml @ 1 mls/min Q1H PRN IV 07/08/16 11:00 08/07/16 10:59 Lorazepam (Ativan Inj) 2 mg Q1H PRN IV 07/08/16 11:00 08/07/16 10:59 07/08/16 18:21 2 MG Nystatin (Mycostatin Susp) 5 ml QID PO 07/09/16 09:00 07/19/16 08:59 07/11/16 08:08 5 ML Chlordiazepoxide (Librium Cap) 25 mg TID PO 07/09/16 21:00 08/08/16 20:59 07/11/16 08:18 25 MG Lidocaine (Lidoderm Patch 5%) 1 patch QAM TD 07/10/16 10:15 08/09/16 10:14 07/11/16 08:09 1 PATCH Miscellaneous (Remove Lidoderm Patch) 1 ea DAILY@21 N/A 07/10/16 21:00 08/09/16 20:59 07/10/16 21:30 1 EA Codeine Phosphate/ Guaifenesin (Robitussin-AC Sugar Free Syrup) 10 ml Q6H PRN PO 07/10/16 18:30 08/09/16 18:29 07/11/16 08:18 10 ML Folic Acid (Folvite Tab) 1 mg QAM PO 07/12/16 08:00 08/11/16 07:59 Thiamine HCl (Vitamin B-1 Tab) 100 mg QAM PO 07/12/16 08:00 08/11/16 07:59 Laboratory Data Labs: Last 24 Hours Test 07/11/16 11:22 Sodium Level 143 mmol/L Potassium Level 3.6 mmol/L Chloride Level 106 mmol/L Carbon Dioxide Level 25 mmol/L Anion Gap 12.0 mmol/L Blood Urea Nitrogen 8 mg/dl Creatinine 0.94 mg/dl Est Creatinine Clear Calc Drug Dose 87.6 ml/min Estimated GFR () 109.9 Estimated GFR (Non- 94.8 BUN/Creatinine Ratio 8.5 Random Glucose 95 mg/dl Calcium Level 8.8 mg/dl Assessment and Plan This is a 50 yo M with PMHx alcohol abuse with seizure secondary to this, paroxysmal afib Seizure secondary to alcohol intoxication Last alcohol was 07/05 at 9p severe withdrawal symptoms few days ago, improved with librium prn continue librium to 25mg TID and continue with PRN ativan Concern for possible Wernicke's, however pt has improved prior to increased thiamine dosing. finish course of thiamine, Continue NSS at 125 mL/hr PT/OT consulted Ceftriaxone was started on admission due to risk for pulmonary involvement d/t seizure like activity, CXR neg of admission. This has been held without s/sx of PNA RUQ u/s : shows echogenic liver consistent with hepatic steatosis MVI, folic acid lung congestion, surprisingly CXR is normal, given IV lasix, stopped IVF Electrolyte Abnormalities: Hypokalemia - replace and monitor Hypomagnesemia - replace and monitor Hypophosphatemia - monitor Paroxysmal afib currently NSR in around in 80`s Echo completed on 07/07/14 showing Grade I diastolic dysfunction with preserved EF 60-65%. Summary * Normal biventricular systolic function. * Normal chamber dimensions. * No significant valvular abnormalities. * Left ventricular diastolic dysfunction. Rhabdomyolysis Continue supportive treatment IVF DVT proph: OOB CODE STATUS: Full Code Pt has been willing to work with outpt rehab services in the recent past per CM , will continue to discuss as he improves patient wants to follow with alcohol rehab for short term, he does not want to drink alcohol anymore, hopefully d/c in next few days
[2016-07-11 15:40] VITALS: BP 119/87; PULSE 97; TEMP 37; O2SAT 92
[2016-07-11] MEDS: TRAZODONE HCL 50 MG TAB PO SCH (21:12)
[2016-07-12 00:15] VITALS: BP 123/80; PULSE 82; TEMP 36.4; O2SAT 95
[2016-07-12] MEDS: GUAIFENESIN/CODEINE 200MG/20MG 10ML UDC PO PRN (06:32)
[2016-07-12 07:44] VITALS: BP 130/89; PULSE 73; TEMP 37; O2SAT 94
[2016-07-12] MEDS ORDERED: THIAMINE HCL 100 MG TAB PO SCH (08:00)
[2016-07-12] MEDS: CYANOCOBALAMIN 500 MCG TAB (VIT B-12) PO SCH (08:04)
[2016-07-12] MEDS: DOCUSATE SODIUM 100 MG CAP PO SCH (08:04)
[2016-07-12] MEDS: MAGNESIUM OXIDE 400 MG TAB PO SCH (08:05)
[2016-07-12] MEDS: NYSTATIN SUSP 500,000 U/5 ML UDC PO SCH ×3 (08:06→16:41)
[2016-07-12] MEDS: MULTIVITAMIN TAB PO SCH (08:06)
[2016-07-12] MEDS: CHOLECALCIFEROL 1000 INTER.UNIT TAB PO SCH (08:06)
[2016-07-12] MEDS: ENOXAPARIN 40 MG/0.4 ML SYR SC SCH (08:07)
[2016-07-12] MEDS: LIDODERM (LIDOCAINE) PATCH 5% TD SCH (08:07)
[2016-07-12] MEDS: MoRPHine SULFATE 2 MG/ML CARP IV PRN ×2 (08:15→14:53)
[2016-07-12] MEDS ORDERED: CHLORDIAZEPOXIDE 25 MG CAP PO SCH (08:30)
[2016-07-12] MEDS ORDERED: SOD PHOSPHATE/SOD BIPHOSPHATE ENEMA 132 ML BTL PR STA (09:25)
[2016-07-12] MEDS ORDERED: LBR25 PO (09:39)
[2016-07-12] MEDS ORDERED: MAGN400T6 PO (09:39)
[2016-07-12] MEDS ORDERED: THIA100T11 PO (09:39)
[2016-07-12] MEDS ORDERED: CLC100 PO (09:39)
[2016-07-12] MEDS ORDERED: FOLI1TAB7 PO (09:39)
--- NOTE | 2016-07-12 09:41 | Discharge Instructions ---
Discharge Instructions Admission Reason for Admission: Alcohol Withdrawal, Seizure-Like Activity Discharge Discharge Diagnosis / Problem: alcohol withdrawal Discharge Goals Goal(s): Increase independence, Improve disease control, Diagnostic testing, Therapeutic intervention Activity Recommendations Activity Limitations: resume your previous activity . Instructions / Follow-Up Instructions / Follow-Up . . please follow with outpatient alcohol rehab avoid alcohol do not drink and drive take Librium for withdrawal symptoms . . Current Hospital Diet Patient's current hospital diet: AHA Diet (Heart Healthy) Discharge Diet Recommended Diet: Regular Diet Pending Studies Studies pending at discharge: no Laboratory Results Last 24 Hours Test 07/11/16 11:22 Sodium Level 143 mmol/L Potassium Level 3.6 mmol/L Chloride Level 106 mmol/L Carbon Dioxide Level 25 mmol/L Anion Gap 12.0 mmol/L Blood Urea Nitrogen 8 mg/dl Creatinine 0.94 mg/dl Est Creatinine Clear Calc Drug Dose 87.6 ml/min Estimated GFR () 109.9 Estimated GFR (Non- 94.8 BUN/Creatinine Ratio 8.5 Random Glucose 95 mg/dl Calcium Level 8.8 mg/dl Medical Emergencies . Who to Call and When: Medical Emergencies: If at any time you feel your situation is an emergency, please call 911 immediately. . Non-Emergent Contact Non-Emergency issues call your: Primary Care Provider Call Non-Emergent contact if: you have a fever, your pain is not controlled . Past History Medical & Surgical History: (1) Alcohol withdrawal . "Provider Documentation" section prepared by Mega Saldana. VTE Core Measure Inpt VTE Proph given/why not?: SCD's
--- NOTE | 2016-07-12 09:46 | Discharge Summary ---
Discharge Summary Admission Date: Jul 06, 2016 at 21:11 Discharge Date: Jul 12, 2016 Discharge Disposition: Home Principal Diagnosis: alcohol withdrawal Medication Reconciliation New Medications: Chlordiazepoxide (Chlordiazepoxide HCl) 25 Mg Cap 25 MG PO BID, #30 CAP take 1 tab twice a day for 5 days, then 1 tab daily until finished or as needed Docusate Sodium (Docusate Sodium) 100 Mg Cap 100 MG PO BID, #60 CAP 3 Refills Continued Medications: Cholecalciferol (Vitamin D3) 2,000 Unit Cap 2000 INTER.UNIT PO DAILY, CAP Cyanocobalamin (Vitamin B12) 1,000 Mcg Tab 1000 MCG PO DAILY Folic Acid (Folvite) 1 Mg Tab 1 MG PO DAILY, #90 TAB (This prescription has been renewed) Magnesium Oxide (Mag-Ox) 400 Mg Tab 400 MG PO BID, #60 TAB 2 Refills (This prescription has been renewed) Multivitamin (Multivitamin) Tab 1 TAB PO DAILY Thiamine Hcl (Vitamin B-1) 100 Mg Tab 100 MG PO BID, #60 TAB 3 Refills (This prescription has been renewed) Trazodone Hcl (Trazodone) 50 Mg Tab 50 MG PO HS, TAB Triamcinolone Acetonide (Nasal (Nasacort Allergy 24Hr) 55 Mcg/Act Spr 2 SPRAYS NA DAILY PRN for Allergy Symptoms Referrals At Discharge Follow up Referrals: Physician Referral - Within 2 Weeks with Mariano Leonard [facility] Discharge Exam Review of Systems: Constitutional: No chills ENT: No unusual epistaxis Respiratory: No sputum Abdomen: No nausea Genitourinary - Male: No hematuria, No urinary frequency Neurologic: No memory loss, No weakness Psychiatric: No anhedonism, No depression symptoms Endocrine: No fatigue Physical Exam: General Appearance: WD/WN, no apparent distress Eyes: normal inspection, EOMI ENT: hearing grossly normal, pharynx normal Neck: supple, no JVD Respiratory/Chest: lungs clear, normal breath sounds Cardiovascular: regular rate, rhythm, no gallop Abdomen / GI: soft, no organomegaly Extremities: no calf tenderness, no pedal edema Neurologic/Psychiatric: no motor/sensory deficits, normal reflexes Skin: normal color, no rash Hospital Course This is a 50 yo M with PMHx alcohol abuse with seizure secondary to this, paroxysmal afib Seizure secondary to alcohol intoxication Last alcohol was 07/05 at 9p severe withdrawal symptoms few days ago, improved with librium prn continue librium to 25mg bid taper and continue PRN Concern for possible Wernicke's, however pt has improved prior to increased thiamine dosing. finish course of thiamine, given scripts for thiamine BID and folic acid and mag oxide Ceftriaxone was started on admission due to risk for pulmonary involvement d/t seizure like activity, CXR neg of admission. This has been held without s/sx of PNA RUQ u/s : shows echogenic liver consistent with hepatic steatosis MVI, folic acid lung congestion, resolved Electrolyte Abnormalities: Hypokalemia - replace and monitor Hypomagnesemia - replace and monitor Hypophosphatemia - monitor Paroxysmal afib currently NSR in around in 80`s Echo completed on 07/07/14 showing Grade I diastolic dysfunction with preserved EF 60-65%. Summary * Normal biventricular systolic function. * Normal chamber dimensions. * No significant valvular abnormalities. * Left ventricular diastolic dysfunction. Rhabdomyolysis received treatment IVF DVT proph: OOB CODE STATUS: Full Code Pt has been willing to work with outpt rehab services in the recent past per CM , PT/OT evaluated the patient and recommended rehab facility, patient is refusing it because "needs to generate income", I told him that he is at high risk of falling and causing significant trauma, including but not limited to SDH, fractures, . He wants to go home and requested a walker to help with ambulation (walker provided) patient wants to follow with alcohol rehab for short term, he does not want to drink alcohol anymore recs given: please follow with outpatient alcohol rehab avoid alcohol do not drink and drive take Librium for withdrawal symptoms take multivitamins (scripts given) Total Time Spent: Greater than 30 minutes This includes examination of the patient, discharge planning, medication reconciliation, and communication with other providers. Discharge Instructions Please refer to the electronic Patient Visit Report (Discharge Instructions) for additional information. Additional Copies To Mariano Leonard D[facility].
[2016-07-12 11:09] VITALS: BP 130/89; PULSE 73; TEMP 37; O2SAT 94
[2016-07-12] MEDS ORDERED: TRAM-10 PO (12:36)
[2016-07-12 13:08] VITALS: BP 119/73; PULSE 108; O2SAT 97
[2016-07-12 15:26] VITALS: BP 116/76; PULSE 86; TEMP 36.8; O2SAT 95
[2016-12-26] MEDS ORDERED: LORA-741 PO (10:39)
[2017-02-12] MEDS ORDERED: LPR25 PO (09:06)
[2017-02-12] MEDS ORDERED: NLT50 PO (09:06)
[2017-02-12] MEDS ORDERED: FOLI1TAB7 PO (09:06)
[2017-02-12] MEDS ORDERED: THIA100T11 PO (09:06)
[2017-02-12] MEDS ORDERED: MCRK20 PO (09:06)
[2017-02-12] MEDS ORDERED: MAGN400T6 PO (09:06)
[2017-02-12] MEDS ORDERED: ATV2 PO (09:52)
[2017-02-12] MEDS ORDERED: DISU1TAB PO (09:59)
== END 2016-07-12 18:32 | disposition home or self-care (01) | DRG 897 ==
LOC: ENRESERVTM → ENRESERVDT → EDBD 16:50 → C.EDC 16:51 → C.2T 21:11 → C.4E 07-10 12:59
PROVIDERS: ADMIT Hospitalist; ATTEND Hospitalist
DX: F10.239 Alcohol dependence with withdrawal, unspecified (principal); M62.82 Rhabdomyolysis; E87.2 Acidosis; R56.9 Unspecified convulsions; T51.0X2A Toxic effect of ethanol, intentional self-harm, initial encounter; I48.0 Paroxysmal atrial fibrillation; E86.0 Dehydration; R09.89 Other specified symptoms and signs involving the circulatory and respiratory systems; E87.6 Hypokalemia; E83.42 Hypomagnesemia; E83.39 Other disorders of phosphorus metabolism; R32 Unspecified urinary incontinence; K76.0 Fatty (change of) liver, not elsewhere classified; Z79.899 Other long term (current) drug therapy

== ENCOUNTER 2016-11-23 17:30 | Inpatient (IN) | payer OTHER ==
[~2016-11-23] VITALS: Ht 162.6 cm; Wt 80.6 kg
[~2016-11-23 17:30] MED LIST changes: +CLC100 PO; +LBR25 PO; -LPR25 PO; -PRT40 PO; -RMR15 PO; +TRAM-10 PO
[2016-11-23] MEDS ORDERED: DIAZEPAM 5MG TAB PO STA ×2 (17:41→19:52)
[2016-11-23] MEDS ORDERED: MULTI-VITAMIN INFUSION INJ 10 ML, THIAMINE HCL INJ 100 MG, FoLIC ACID INJ 1 MG in SODIU... IV ONE (17:45)
[2016-11-23] MEDS ORDERED: CHLO1TAB19 PO (18:03)
[2016-11-23] MEDS ORDERED: MIRT15TA3 PO (18:05)
--- NOTE | 2016-11-23 18:08 | EMERGENCY ROOM VISIT NOTE ---
History Report prepared by Kandi: Shyla Berry Under the Supervision of: Dr. Scarlet Collins M.D. First contact with patient: 17:38 Chief Complaint: SHORTNESS OF BREATH Stated Complaint: ALCHOHOL WITHDRAWL, SOB CHEST PAIN, NUMBNESS, History of Present Illness The patient is a 51 year old male who presents to the Emergency Room with complaints of persistent shortness of breath that began prior to arrival. He currently rates his discomfort as an 8/10 in severity. Per records, the patient has a history of seizures with alcohol withdrawal. The patient reports that over the last four weeks he and his girlfriend have been heavily drinking daily. He reports that neither he nor his girlfriend work at this time. Today , the patient reports numbness in his 4th and 5th fingers on his right hand, lightheadedness, chest pain, shortness of breath, epigastric abdominal pain, that he describes as sharp in nature, shakes, vomiting, and dry heaving. The patient reports a sharp pain in his left leg. He reports a history of a DVT that traveled to his lung causing a PE. The patient voices concern that the pain in his left leg is similar to when he developed his DVT. He additionally reports throat tightness and difficulty ambulating. Today, the patient states that he would like to stop drinking, stating that he is afraid of having another seizure. He reports multiple stints in rehab as an inpatient and outpatient. The patient denies any fever, diarrhea, hematochezia, melena, or head trauma. Source of History: patient Onset: prior to arrival Position: other (global) Symptom Intensity: 8/10 Quality: other (shortness of breath) Timing: other (persistent) Associated Symptoms: + chest pain, + vomiting, + abdominal pain (epigastric) , No fevers, No melena, No hematochezia, No diarrhea Note: Associated Symptoms: lightheadedness, 4th and 5th finger numbness, sharp pain in left leg, difficulty ambulating Review of Systems See HPI for pertinent positives & negatives. A total of 10 systems reviewed and were otherwise negative. Past Medical & Surgical Medical Problems: (1) Alcohol overdose (2) Alcohol withdrawal (3) Alcohol withdrawal (4) Alcoholism (5) Compression fracture of body of thoracic vertebra (6) Compression fracture of L1 lumbar vertebra (7) Hypokalemia (8) Hypomagnesemia (9) Seizure-like activity Family History Cancer Diabetes mellitus Lung disease Social History Smoking Status: Never Smoker Alcohol Use: heavy Drug Use: none Marital Status: in relationship Housing Status: lives with significant other Current/Historical Medications Scheduled Cholecalciferol (Vitamin D3), 2,000 INTER.UNIT PO DAILY Cyanocobalamin (Vitamin B12), 1,000 MCG PO DAILY Folic Acid (Folvite), 1 MG PO DAILY Magnesium Oxide (Mag-Ox), 400 MG PO BID Mirtazapine (Remeron), 15 MG PO HS Multivitamin (Multivitamin), 1 TAB PO DAILY Thiamine Hcl (Vitamin B-1), 100 MG PO BID Trazodone Hcl (Trazodone), 50 MG PO HS Scheduled PRN Tramadol (Ultram), 50 MG PO Q4H PRN for Pain Allergies Coded Allergies: No Known Allergies (Unverified , 11/23/16) Physical Exam Vital Signs Date Time Temp Pulse Resp B/P (MAP) Pulse Ox O2 Delivery O2 Flow Rate FiO2 11/23/16 20:31 90 19 143/93 97 Room Air 11/23/16 20:01 96 17 138/90 97 Room Air 11/23/16 19:32 89 21 144/95 96 Room Air 11/23/16 18:12 82 17 139/101 96 11/23/16 18:08 101 11/23/16 17:34 36.6 118 20 146/91 96 Room Air Physical Exam Vital signs reviewed. General: Well-appearing male, in no significant distress. Jittery with distal tremors. HEENT: Seborrheic dermatitis to the face. No scleral icterus, PERRLA, neck supple. Atraumatic. Cardiovascular: Slightly tachycardic rate and regular rhythm, no extra sounds. Pulmonary: Clear to auscultation bilaterally, normal work of breathing. Abdomen: Soft, nontender, nondistended, positive bowel sounds. Musculoskeletal: Atraumatic, no peripheral edema. Neurologic: Patient awake alert and oriented x 3, full strength in all 4 extremities. Cranial nerves 2 through 12 grossly intact. Skin: Warm, dry, no rash Medical Decision & Procedures ER Provider Diagnostic Interpretation: Radiology results as stated below per my review and radiologist interpretation: CHEST ONE VIEW PORTABLE CLINICAL HISTORY: ETOH w/d, shortness of breath and chest pain. COMPARISON STUDY: Chest radiograph November or 31/01/2017. FINDINGS: There several old left rib fractures. There is no consolidation or evidence of pulmonary edema. Cardiomediastinal silhouette is normal. Minimal left basilar opacity favors atelectasis. IMPRESSION: No acute cardiopulmonary findings. Electronically signed by: Akhil Russell M.D. 11/23/2016 6:44 PM Dictated Date/Time: 11/23/2016 6:43 PM LEFT LOWER EXTREMITY VENOUS DOPPLER CLINICAL HISTORY: Shortness of breath. Chest pain. Numbness. COMPARISON STUDY: No previous studies for comparison. TECHNIQUE: Sonography of the deep venous system of the left lower extremity was performed. Compression and augmentation were evaluated. FINDINGS: The left common femoral, superficial femoral and popliteal veins were compressible. Augmentation was normal. Flow was shown within the deep calf vessels. IMPRESSION: No evidence of deep venous thrombus within the left lower extremity. Electronically signed by: Akhil Russell M.D. 11/23/2016 7:04 PM Dictated Date/Time: 11/23/2016 7:03 PM Laboratory Results 11/23/16 18:05 Red Blood Count 5.02, Mean Corpuscular Volume 92.0, Mean Corpuscular Hemoglobin 31.1, Mean Corpuscular Hemoglobin Concent 33.8, Mean Platelet Volume 9.4, Neutrophils (%) (Auto) 61.8, Lymphocytes (%) (Auto) 20.3, Monocytes (%) (Auto) 16.3, Eosinophils (%) (Auto) 0.6, Basophils (%) (Auto) 0.4, Neutrophils # (Auto ) 2.91, Lymphocytes # (Auto) 0.96, Monocytes # (Auto) 0.77, Eosinophils # (Auto ) 0.03, Basophils # (Auto) 0.02 11/23/16 18:05 Test 11/23/16 18:05 White Blood Count 4.72 K/uL (4.8-10.8) Red Blood Count 5.02 M/uL (4.7-6.1) Hemoglobin 15.6 g/dL (14.0-18.0) Hematocrit 46.2 % (42-52) Mean Corpuscular Volume 92.0 fL (80-100) Mean Corpuscular Hemoglobin 31.1 pg (25-34) Mean Corpuscular Hemoglobin Concent 33.8 g/dl (32-36) Platelet Count 116 K/uL (130-400) Mean Platelet Volume 9.4 fL (7.4-10.4) Neutrophils (%) (Auto) 61.8 % Lymphocytes (%) (Auto) 20.3 % Monocytes (%) (Auto) 16.3 % Eosinophils (%) (Auto) 0.6 % Basophils (%) (Auto) 0.4 % Neutrophils # (Auto) 2.91 K/uL (1.4-6.5) Lymphocytes # (Auto) 0.96 K/uL (1.2-3.4) Monocytes # (Auto) 0.77 K/uL (0.11-0.59) Eosinophils # (Auto) 0.03 K/uL (0-0.5) Basophils # (Auto) 0.02 K/uL (0-0.2) RDW Standard Deviation 51.0 fL (36.4-46.3) RDW Coefficient of Variation 15.2 % (11.5-14.5) Immature Granulocyte % (Auto) 0.6 % Immature Granulocyte # (Auto) 0.03 K/uL (0.00-0.02) Prothrombin Time 11.0 SECONDS (9.0-12.0) Prothromb Time International Ratio 1.0 (0.9-1.1) Activated Partial Thromboplast Time 26.8 SECONDS (21.0-31.0) Partial Thromboplastin Ratio 1.0 Anion Gap 13.0 mmol/L (3-11) Est Creatinine Clear Calc Drug Dose 103.6 ml/min Estimated GFR () 120.1 Estimated GFR (Non- 103.6 BUN/Creatinine Ratio 9.0 (10-20) Calcium Level 8.7 mg/dl (8.5-10.1) Magnesium Level 1.9 mg/dl (1.8-2.4) Total Bilirubin 2.1 mg/dl (0.2-1) Direct Bilirubin 0.5 mg/dl (0-0.2) Aspartate Amino Transf (AST/SGOT) 148 U/L (15-37) Alanine Aminotransferase (ALT/SGPT) 146 U/L (12-78) Alkaline Phosphatase 53 U/L (45-117) Total Protein 8.0 gm/dl (6.4-8.2) Albumin 4.0 gm/dl (3.4-5.0) Lipase 188 U/L (73-393) Thyroid Stimulating Hormone (TSH) 3.740 uIu/ml (0.300-4.500) Ethyl Alcohol mg/dL < 3.0 mg/dl (0-3) Laboratory results per my review. Medications Administered Medications (Trade) Dose Ordered Sig/Dyan Route Start Time Stop Time Status Last Admin Dose Admin Diazepam (Valium Tab) 10 mg NOW STAT PO 11/23/16 17:41 11/23/16 17:43 DC 11/23/16 18:16 10 MG Multivitamins 10 ml/Thiamine HCl 100 mg/Folic Acid 1 mg/Sodium Chloride 1,011.2 ml @ 300 mls/ hr Q3H23M ONCE IV 11/23/16 17:45 11/23/16 21:07 DC 11/23/16 18:10 300 MLS/HR Diazepam (Valium Tab) 10 mg NOW STAT PO 11/23/16 19:52 11/23/16 19:53 DC 11/23/16 20:27 10 MG Ondansetron HCl (Zofran Inj) 4 mg NOW STAT IV 11/23/16 20:41 11/23/16 20:42 DC 11/23/16 20:48 4 MG ECG Indication: SOB/dyspnea Rate (beats per minute): 95 Rhythm: normal sinus Findings: no acute ischemic change, no ectopy ED Course 1744: Past medical records reviewed. The patient was evaluated in room B6. A complete history and physical examination was performed. 1740: Ordered Valium Tab 10 mg PO. 1744: Ordered Multivitamin 10 ml/Thiamine HCl 100 mg/Folic Acid 1 mg/Sodium Chloride 1011.2 ml @ 300 mls/hr IV. 1945: I reevaluated the patient and he is resting comfortably. I discussed all the exam findings with him and I discussed the treatment plan. He verbalized complete understanding and agreement. He is going to be evaluated for further treatment. 1951: Ordered Valium Tab 10 mg PO. 2015: I discussed the patients case with Dr. [place] [facility] [place]. He is going to evaluate the patient for further treatment. 2040: Per nursing staff, the patient is feeling nauseous. Ordered Zofran Inj 4 mg IV. Medical Decision The patient is a 51 year old male who presents to the ED with complaints of shortness of breath. Differentials include metabolic abnormality, alcohol withdrawal, medication effect, dehydration, DVT, PE. Blood Pressure Screening: Patient was found to have a slightly elevated blood pressure due to circumstances. I do not believe that the patient requires hypertension monitoring. Medication Reconciliation: I attest that I have personally reviewed the patient' s current medication list. This patient was evaluated and appeared to be in no significant distress. Patient does seem to be somewhat jittery. Given his mildly tachycardic and hypertensive status, he does appear to be consistent with alcohol withdrawal. Patient was given 10 mg of oral Valium. He was given an IV banana bag. Laboratory work is consistent with chronic alcohol use. The patient states he would like to detox. He was given an additional 5 mg of oral Valium as well as 4 mg of IV Zofran. Case was discussed with the hospitalist service who evaluated the patient for further management. Consults Time Called: 1951 Consulting Physician: ANICETO Ghotra Returned Call: 2013 I discussed the patients case with ANICETO Ghotra. He is going to evaluate the patient for further treatment. Impression Primary Impression: Alcohol withdrawal Scribe Attestation The scribe's documentation has been prepared under my direction and personally reviewed by me in its entirety. I confirm that the note above accurately reflects all work, treatment, procedures, and medical decision making performed by me. Departure Information Dispostion Being Evaluated By Hospitalist Referrals No Doctor, Assigned (PCP)
[2016-11-23 18:17] LABS: BASO % 0.4 %; BASO ABS # 0.02 K/uL (0-0.2); COMPLETE YES; EOS % 0.6 %; HEMATOCRIT 46.2 % (42-52); IG% 0.6 %; LYMPH % 20.3 %; LYMPH ABS # 0.96 K/uL (1.2-3.4); MEAN CORPUSCULAR HEMOGLOBIN 31.1 pg (25-34); MEAN CORPUSCULAR HGB CONC 33.8 g/dl (32-36); MEAN PLATELET VOLUME 9.4 fL (7.4-10.4); MONO % 16.3 %; NEUT % 61.8 %; PLATELET COUNT 116 K/uL (130-400); RED BLOOD COUNT 5.02 M/uL (4.7-6.1); WHITE BLOOD COUNT 4.72 K/uL (4.8-10.8)
[2016-11-23 18:37] LABS: CALCIUM 8.7 mg/dl (8.5-10.1); CREATININE 0.81 mg/dl (0.60-1.40); MAGNESIUM 1.9 mg/dl (1.8-2.4); POTASSIUM 3.7 mmol/L (3.5-5.1)
--- NOTE | 2016-11-23 18:46 | DIAGNOSTIC IMAGING REPORT ---
CHEST ONE VIEW PORTABLE CLINICAL HISTORY: ETOH w/d, shortness of breath and chest pain. COMPARISON STUDY: Chest radiograph November or 31/01/2017. FINDINGS: There several old left rib fractures. There is no consolidation or evidence of pulmonary edema. Cardiomediastinal silhouette is normal. Minimal left basilar opacity favors atelectasis. IMPRESSION: No acute cardiopulmonary findings. Electronically signed by: Akhil Russell M.D. 11/23/2016 6:44 PM Dictated Date/Time: 11/23/2016 6:43 PM
[2016-11-23 18:48] LABS: THYROID STIMULATING HORMONE 3.74 uIu/ml (0.300-4.500)
--- NOTE | 2016-11-23 19:05 | DIAGNOSTIC IMAGING REPORT ---
LEFT LOWER EXTREMITY VENOUS DOPPLER CLINICAL HISTORY: Shortness of breath. Chest pain. Numbness. COMPARISON STUDY: No previous studies for comparison. TECHNIQUE: Sonography of the deep venous system of the left lower extremity was performed. Compression and augmentation were evaluated. FINDINGS: The left common femoral, superficial femoral and popliteal veins were compressible. Augmentation was normal. Flow was shown within the deep calf vessels. IMPRESSION: No evidence of deep venous thrombus within the left lower extremity. Electronically signed by: Akhil Russell M.D. 11/23/2016 7:04 PM Dictated Date/Time: 11/23/2016 7:03 PM
[2016-11-23] MEDS ORDERED: ONDANSETRON INJ 2 MG/ML 2 ML VIAL IV STA (20:41)
[2016-11-23] MEDS ORDERED: ACETAMINOPHEN 325 MG TAB PO PRN (21:00)
[2016-11-23] MEDS ORDERED: POLYETHYLENE (MIRALAX) 17 GM PACK PO PRN (21:00)
[2016-11-23] MEDS ORDERED: ONDANSETRON INJ 2 MG/ML 2 ML VIAL IV PRN (21:00)
[2016-11-23] MEDS ORDERED: IV FLUIDS COMPLETED PRN (21:15)
--- NOTE | 2016-11-23 21:15 | History and Physical ---
History & Physical Date & Time of Service: Nov 23, 2016 at 21:10 Chief Complaint: Alchohol Withdrawl, Sob Chest Pain, Numbness, Primary Care Physician: No Doctor, Assigned History of Present Illness Source: patient 51-year-old male with a past medical history of chronic alcohol abuse presented to the ER with complaints of shortness of breath that started prior to arrival. States that he is" withdrawing from alcohol" Also complains of anxiety, chest pain, epigastric pain radiating to the back, lightheadedness. Complains of dry heaving but no vomiting.The patient is a chronic alcoholic and drinks about 10- 12 beers per day. His last drink was at 4 AM this morning. He also complains about numbness in the fourth and fifth fingers of his right hand. The patient has a history of seizures secondary to alcohol withdrawal. Denies any chest pain, palpitations, restlessness currently. Had complained about the concern of a DVT in his left leg and a Doppler ultrasound was performed which was negative Past Medical/Surgical History Medical Problems: (1) Alcohol overdose Status: Resolved (2) Alcohol withdrawal Status: Resolved (3) Alcoholism Status: Chronic (4) Compression fracture of body of thoracic vertebra Status: Resolved (5) Compression fracture of L1 lumbar vertebra Status: Resolved (6) Hypokalemia Status: Resolved (7) Hypomagnesemia Status: Resolved Family History Cancer Diabetes mellitus Lung disease Social History Smoking Status: Never Smoker Drug Use: none Marital Status: in relationship Multi-Drug Resistant Organisms History of MDRO: No Allergies Coded Allergies: No Known Allergies (Unverified , 11/23/16) Home Medications Scheduled Cholecalciferol (Vitamin D3), 2,000 INTER.UNIT PO DAILY Cyanocobalamin (Vitamin B12), 1,000 MCG PO DAILY Folic Acid (Folvite), 1 MG PO DAILY Magnesium Oxide (Mag-Ox), 400 MG PO BID Mirtazapine (Remeron), 15 MG PO HS Multivitamin (Multivitamin), 1 TAB PO DAILY Thiamine Hcl (Vitamin B-1), 100 MG PO BID Trazodone Hcl (Trazodone), 50 MG PO HS Scheduled PRN Tramadol (Ultram), 50 MG PO Q4H PRN for Pain Review of Systems Constitutional: No fever, No chills Eyes: No worsening of vision ENT: No hearing loss Respiratory: + shortness of breath, No cough, No sputum Cardiovascular: + chest pain Abdomen: + pain (epigastric) Musculoskeletal: No joint pain Genitourinary - Male: No hematuria, No dysuria Psychiatric: + substance abuse (alcohol abuse) Endocrine: No fatigue Hematologic / Lymphatic: No abnormal bleeding/bruising Physical Exam Vital Signs Date Time Temp Pulse Resp B/P (MAP) Pulse Ox O2 Delivery O2 Flow Rate FiO2 11/23/16 20:31 90 19 143/93 97 Room Air 11/23/16 20:01 96 17 138/90 97 Room Air 11/23/16 19:32 89 21 144/95 96 Room Air 11/23/16 18:12 82 17 139/101 96 11/23/16 18:08 101 11/23/16 17:34 36.6 118 20 146/91 96 Room Air General Appearance: WD/WN Head: normocephalic, atraumatic Eyes: normal inspection ENT: hearing grossly normal Neck: supple Respiratory/Chest: chest non-tender, lungs clear, normal breath sounds, no respiratory distress, no accessory muscle use Cardiovascular: regular rate, rhythm Abdomen/GI: normal bowel sounds, non tender, soft Extremities/Musculoskelatal: no calf tenderness, no pedal edema, + pertinent finding (B/l UE tremors) Neurologic/Psych: alert, normal mood/affect, oriented x 3 Skin: normal color Diagnostics Laboratory Results Results Past 24 Hours Test 11/23/16 18:05 Range/Units White Blood Count 4.72 4.8-10.8 K/uL Red Blood Count 5.02 4.7-6.1 M/uL Hemoglobin 15.6 14.0-18.0 g/dL Hematocrit 46.2 42-52 % Mean Corpuscular Volume 92.0 80-100 fL Mean Corpuscular Hemoglobin 31.1 25-34 pg Mean Corpuscular Hemoglobin Concent 33.8 32-36 g/dl Platelet Count 116 130-400 K/uL Mean Platelet Volume 9.4 7.4-10.4 fL Neutrophils (%) (Auto) 61.8 % Lymphocytes (%) (Auto) 20.3 % Monocytes (%) (Auto) 16.3 % Eosinophils (%) (Auto) 0.6 % Basophils (%) (Auto) 0.4 % Neutrophils # (Auto) 2.91 1.4-6.5 K/uL Lymphocytes # (Auto) 0.96 1.2-3.4 K/uL Monocytes # (Auto) 0.77 0.11-0.59 K/uL Eosinophils # (Auto) 0.03 0-0.5 K/uL Basophils # (Auto) 0.02 0-0.2 K/uL RDW Standard Deviation 51.0 36.4-46.3 fL RDW Coefficient of Variation 15.2 11.5-14.5 % Immature Granulocyte % (Auto) 0.6 % Immature Granulocyte # (Auto) 0.03 0.00-0.02 K/uL Prothrombin Time 11.0 9.0-12.0 SECONDS Prothromb Time International Ratio 1.0 0.9-1.1 Activated Partial Thromboplast Time 26.8 21.0-31.0 SECONDS Partial Thromboplastin Ratio 1.0 Sodium Level 142 136-145 mmol/L Potassium Level 3.7 3.5-5.1 mmol/L Chloride Level 106 98-107 mmol/L Carbon Dioxide Level 23 21-32 mmol/L Anion Gap 13.0 3-11 mmol/L Blood Urea Nitrogen 7 7-18 mg/dl Creatinine 0.81 0.60-1.40 mg/dl Est Creatinine Clear Calc Drug Dose 103.6 ml/min Estimated GFR () 120.1 Estimated GFR (Non- 103.6 BUN/Creatinine Ratio 9.0 10-20 Random Glucose 87 70-99 mg/dl Calcium Level 8.7 8.5-10.1 mg/dl Magnesium Level 1.9 1.8-2.4 mg/dl Total Bilirubin 2.1 0.2-1 mg/dl Direct Bilirubin 0.5 0-0.2 mg/dl Aspartate Amino Transf (AST/SGOT) 148 15-37 U/L Alanine Aminotransferase (ALT/SGPT) 146 12-78 U/L Alkaline Phosphatase 53 45-117 U/L Total Protein 8.0 6.4-8.2 gm/dl Albumin 4.0 3.4-5.0 gm/dl Lipase 188 73-393 U/L Thyroid Stimulating Hormone (TSH) 3.740 0.300-4.500 uIu/ml Ethyl Alcohol mg/dL < 3.0 0-3 mg/dl Diagnostic Radiology [~ rep ct add3]] CHEST ONE VIEW PORTABLE CLINICAL HISTORY: ETOH w/d, shortness of breath and chest pain. COMPARISON STUDY: Chest radiograph November or 31/01/2017. FINDINGS: There several old left rib fractures. There is no consolidation or evidence of pulmonary edema. Cardiomediastinal silhouette is normal. Minimal left basilar opacity favors atelectasis. IMPRESSION: No acute cardiopulmonary findings. LEFT LOWER EXTREMITY VENOUS DOPPLER CLINICAL HISTORY: Shortness of breath. Chest pain. Numbness. COMPARISON STUDY: No previous studies for comparison. TECHNIQUE: Sonography of the deep venous system of the left lower extremity was performed. Compression and augmentation were evaluated. FINDINGS: The left common femoral, superficial femoral and popliteal veins were compressible. Augmentation was normal. Flow was shown within the deep calf vessels. IMPRESSION: No evidence of deep venous thrombus within the left lower extremity. Electronically signed by: Akhil Russell M.D. 11/23/2016 7:04 PM EKG Normal sinus rhythm Normal ECG When compared with ECG of 08-JUL-2016 08:53, ST no longer elevated in Inferior leads Impression Assessment and Plan 51-year-old male with a past medical history of chronic alcohol abuse presented to the ER with complaints of shortness of breath that started prior to arrival. States that he is" withdrawing from alcohol". Had also complained about left lower extremity swelling and tenderness, venous Dopplers were negative Alcohol withdrawal: - Chronic history of alcohol abuse with history of seizures from withdrawal - Alcohol withdrawal protocol with gabapentin . Ativan as needed - Received banana bag in the ER - Fall and aspiration precautions - banana bag Transaminitis: AST of 148, ALT of 146 Likely secondary to alcohol abuse - INR 1 Thrombocytopenia: Appears to be chronic - Platelets at 116, baseline 150s, no active bleeding - Likely secondary to alcohol intake DVT prophylaxis: Heparin subcutaneous Full code Disposition: Admitted to telemetry. monitor for withdrawal Level of Care Telemetry Resuscitation Status FULL RESUSCITATION VTE Prophylaxis VTE Risk Assessment Done? Y/N: Yes Risk Level: Moderate Given or contraindicated: Unfractionated heparin SQ Resident Tracking Resident Involvement: Resident Care Provided Care Provided: Adult [facility] Medicine Assessment and Plan Attending Addendum: I have physically seen and examined this patient, have directed their medical care, have supervised the medical residents activities, and agree with the H&P as noted above, with the following changes: NONE
[2016-11-23] MEDS ORDERED: GABAPENTIN 600 MG TAB PO STA (21:39)
[2016-11-23 21:45] VITALS: BP 157/84; PULSE 85; TEMP 36.8; O2SAT 96; Ht 162.6 cm; Wt 80.6 kg
[2016-11-23] MEDS: HEPARIN SOD 5000 UNIT/0.5 ML CARP SQ SCH (22:31)
[2016-11-23 23:10] VITALS: BP 131/87; PULSE 92; TEMP 37.1; O2SAT 96
[2016-11-23] MEDS ORDERED: COUGH DROP (SUGAR FREE) LOZ 24 LOZ/1 BOX ONE (23:28)
[2016-11-23 23:37] LABS: URINE APPEARANCE CLEAR (CLEAR); URINE COLOR ORANGE; URINE NITRITE POS (NEG); URINE PH 5.5 (4.5-7.5); URINE SPECIFIC GRAVITY 1.021 (1.000-1.030); UROBILINOGEN NEG (NEG); ZZUR CULT IF INDIC CLEAN CATCH NO
[2016-11-23 23:48] LABS: MANUAL MICROSCOPIC REQUIRED? NO; REVIEW REQ? NO; URINE BILIRUBIN NEG (NEG)
[2016-11-23 23:58] LABS: BENZODIAZEPINE, URINE POS (NEG); COCAINE,URINE NEG (NEG); PHENCYCLIDINE, URINE NEG (NEG)
[2016-11-24] VITALS (8 sets, daily range): BP systolic 128–151; BP diastolic 84–91; PULSE 77–96; TEMP 36.9–37.3; O2SAT 93–96
[2016-11-24] MEDS: GABAPENTIN 600MG Q6H DOSE PO SCH ×2 (04:22→09:12)
[2016-11-24] MEDS: HEPARIN SOD 5000 UNIT/0.5 ML CARP SQ SCH ×3 (05:49→22:00)
[2016-11-24] MEDS ORDERED: LORAZEPAM 1 MG TAB PO PRN (06:15)
[2016-11-24 07:32] LABS: INR 1.1 (0.9-1.1); PROTHROMBIN TIME (PATIENT) 11.3 SECONDS (9.0-12.0)
[2016-11-24 07:34] LABS: COMPLETE YES
[2016-11-24] MEDS: MULTI-VITAMIN INFUSION INJ 10 ML, THIAMINE HCL INJ 100 MG, FoLIC ACID INJ 1 MG in SODIU... IV SCH (07:42)
[2016-11-24 07:49] LABS: BUN/CREATININE RATIO 12.3 (10-20); CALCIUM 8.3 mg/dl (8.5-10.1); CREATININE 0.81 mg/dl (0.60-1.40); MAGNESIUM 1.9 mg/dl (1.8-2.4); POTASSIUM 3.3 mmol/L (3.5-5.1)
[2016-11-24 07:52] LABS: ALB/GLOB RATIO 0.9 (0.9-2)
[2016-11-24] MEDS ORDERED: POTASSIUM CHLORIDE 10 MEQ TABCR PO STA (07:52)
[2016-11-24 08:06] LABS: BASO % 0.3 %; BASO ABS # 0.02 K/uL (0-0.2); EOS % 0.8 %; HEMATOCRIT 45.2 % (42-52); IG% 0.3 %; LYMPH % 27.4 %; LYMPH ABS # 1.81 K/uL (1.2-3.4); MEAN CORPUSCULAR HEMOGLOBIN 31.2 pg (25-34); MEAN PLATELET VOLUME 9.3 fL (7.4-10.4); MONO % 13.8 %; NEUT % 57.4 %; PLATELET COUNT 118 K/uL (130-400); RED BLOOD COUNT 4.81 M/uL (4.7-6.1); WHITE BLOOD COUNT 6.61 K/uL (4.8-10.8)
[2016-11-24 08:15] LABS: COMPLETE YES; MEAN CORPUSCULAR HGB CONC 33.2 g/dl (32-36)
--- NOTE | 2016-11-24 11:34 | Hospitalist Progress Note ---
Hospitalist Progress Note Date of Service Nov 24, 2016. Subjective Pt evaluation today including: conversation w/ patient, physical exam, chart review, lab review, review of studies, review of inpatient medication list Patient seen and evaluated. No acute events overnight. He is on a gabapentin taper and has not needed additional ativan per AWSS protocol. He reports slightly improved with his multiple symptoms but reports continued lightheadedness, fogginess/difficulty concentrating, excessive gas, tremors of the upper extremities, and mild anxiousness. Reports that he had multiple muscle spasms throughout the night of arms and legs and was concerned he was going to have a seizure, but did not. Urine on bedside table is dark in color and denies urinary symptoms. Constitutional: + fatigue, + problem reported (lightheadedness), No fever, No chills Eyes: No worsening of vision ENT: No sore throat, No trouble swallowing Respiratory: No cough, No shortness of breath Cardiovascular: No chest pain, No palpitations Abdomen: + problem reported (excessive gas), No pain, No nausea, No vomiting , No diarrhea, No constipation Male : No dysuria Neurologic: + memory loss, + numbness/tingling (R 4th-5th fingers only) Psychiatric: + anxiety, + substance abuse Heme: No abnormal bleeding/bruising Skin: No rash Medications Current Inpatient Medications Medications (Trade) Dose Ordered Sig/Dyan Route Start Time Stop Time Status Last Admin Dose Admin Heparin Sodium (Porcine) (Heparin Sq 5000 Unit/0.5ml) 5,000 unit Q8 SQ 11/23/16 22:00 12/23/16 21:59 11/24/16 05:49 5,000 UNIT Acetaminophen (Tylenol Tab) 650 mg Q4H PRN PO 11/23/16 21:00 12/23/16 20:59 Ondansetron HCl (Zofran Inj) 4 mg Q6H PRN IV 11/23/16 21:00 12/23/16 20:59 Polyethylene (Miralax Powder Packet) 17 gm DAILY PRN PO 11/23/16 21:00 12/23/16 20:59 Miscellaneous (Iv Fluids Completed) 1 ea PRN PRN N/A 11/23/16 21:15 11/23/17 21:14 Gabapentin (Neurontin Tab) 600 mg Q8H PO 11/24/16 18:00 11/25/16 10:01 Gabapentin (Neurontin Tab) 600 mg Q12H PO 11/25/16 22:00 11/26/16 10:01 Gabapentin (Neurontin Tab) 600 mg Q24H PO 11/27/16 10:00 11/27/16 10:01 Multivitamins 10 ml/Thiamine HCl 100 mg/Folic Acid 1 mg/Sodium Chloride 1,011.2 ml @ 125 mls/ hr DAILY IV 11/24/16 09:00 12/24/16 08:59 11/24/16 07:42 125 MLS/HR Lorazepam (Ativan Tab) 1 mg ONE PRN PO 11/24/16 06:15 Objective Vital Signs Date Time Temp Pulse Resp B/P (MAP) Pulse Ox O2 Delivery O2 Flow Rate FiO2 11/24/16 07:50 37.1 94 16 146/86 (106) 96 Room Air 11/24/16 07:30 Room Air 11/24/16 04:00 96 Room Air 11/24/16 03:09 36.9 86 17 129/84 (99) 96 Room Air 11/24/16 00:01 96 Room Air 11/23/16 23:10 37.1 92 20 131/87 (102) 96 Room Air 11/23/16 21:45 36.8 85 18 157/84 96 Room Air 11/23/16 21:19 98 23 145/101 97 11/23/16 21:01 98 23 145/101 97 Room Air 11/23/16 20:31 90 19 143/93 97 Room Air 11/23/16 20:01 96 17 138/90 97 Room Air 11/23/16 19:32 89 21 144/95 96 Room Air 11/23/16 18:12 82 17 139/101 96 11/23/16 18:08 101 11/23/16 17:34 36.6 118 20 146/91 96 Room Air Physical Exam General Appearance: WD/WN, no apparent distress Eyes: sclerae normal ENT: hearing grossly normal Neck: supple, no JVD, trachea midline Respiratory/Chest: lungs clear, normal breath sounds, no respiratory distress, no accessory muscle use Cardiovascular: no gallop, no murmur, + tachycardia Abdomen: normal bowel sounds, non tender, soft Extremities: no pedal edema, no calf tenderness Neurologic/Psychiatric: alert, oriented x 3 Skin: normal color, warm/dry Laboratory Results Last 24 Hours Test 11/23/16 18:05 11/23/16 23:25 11/24/16 06:47 11/24/16 07:53 White Blood Count 4.72 K/uL K/uL 6.61 K/uL Red Blood Count 5.02 M/uL M/uL 4.81 M/uL Hemoglobin 15.6 g/dL g/dL 15.0 g/dL Hematocrit 46.2 % % 45.2 % Mean Corpuscular Volume 92.0 fL fL 94.0 fL Mean Corpuscular Hemoglobin 31.1 pg pg 31.2 pg Mean Corpuscular Hemoglobin Concent 33.8 g/dl g/dl 33.2 g/dl Platelet Count 116 K/uL 118 K/uL Mean Platelet Volume 9.4 fL 9.3 fL Neutrophils (%) (Auto) 61.8 % 57.4 % Lymphocytes (%) (Auto) 20.3 % 27.4 % Monocytes (%) (Auto) 16.3 % 13.8 % Eosinophils (%) (Auto) 0.6 % 0.8 % Basophils (%) (Auto) 0.4 % 0.3 % Neutrophils # (Auto) 2.91 K/uL 3.80 K/uL Lymphocytes # (Auto) 0.96 K/uL 1.81 K/uL Monocytes # (Auto) 0.77 K/uL 0.91 K/uL Eosinophils # (Auto) 0.03 K/uL 0.05 K/uL Basophils # (Auto) 0.02 K/uL 0.02 K/uL RDW Standard Deviation 51.0 fL fL 51.9 fL RDW Coefficient of Variation 15.2 % % 15.0 % Immature Granulocyte % (Auto) 0.6 % 0.3 % Immature Granulocyte # (Auto) 0.03 K/uL 0.02 K/uL Prothrombin Time 11.0 SECONDS 11.3 SECONDS Prothromb Time International Ratio 1.0 1.1 Activated Partial Thromboplast Time 26.8 SECONDS Partial Thromboplastin Ratio 1.0 Sodium Level 142 mmol/L 141 mmol/L Potassium Level 3.7 mmol/L 3.3 mmol/L Chloride Level 106 mmol/L 106 mmol/L Carbon Dioxide Level 23 mmol/L 24 mmol/L Anion Gap 13.0 mmol/L 11.0 mmol/L Blood Urea Nitrogen 7 mg/dl 10 mg/dl Creatinine 0.81 mg/dl 0.81 mg/dl Est Creatinine Clear Calc Drug Dose 103.6 ml/min 104.8 ml/min Estimated GFR () 120.1 120.1 Estimated GFR (Non- 103.6 103.6 BUN/Creatinine Ratio 9.0 12.3 Random Glucose 87 mg/dl 75 mg/dl Calcium Level 8.7 mg/dl 8.3 mg/dl Magnesium Level 1.9 mg/dl 1.9 mg/dl Total Bilirubin 2.1 mg/dl 2.2 mg/dl Direct Bilirubin 0.5 mg/dl Aspartate Amino Transf (AST/SGOT) 148 U/L 141 U/L Alanine Aminotransferase (ALT/SGPT) 146 U/L 128 U/L Alkaline Phosphatase 53 U/L 48 U/L Total Protein 8.0 gm/dl 7.1 gm/dl Albumin 4.0 gm/dl 3.4 gm/dl Lipase 188 U/L Thyroid Stimulating Hormone (TSH) 3.740 uIu/ml Ethyl Alcohol mg/dL < 3.0 mg/dl Urine Color ORANGE Urine Appearance CLEAR Urine pH 5.5 Urine Specific [place] 1.021 Urine Protein NEG Urine Glucose (UA) NEG Urine Ketones TRACE Urine Occult Blood NEG Urine Nitrite POS Urine Bilirubin NEG Urine Urobilinogen NEG Urine Leukocyte Esterase TRACE Urine WBC (Auto) 1-5 /hpf Urine RBC (Auto) 0-4 /hpf Urine Hyaline Casts (Auto) 1-5 /lpf Urine Epithelial Cells (Auto) 5-10 /lpf Urine Bacteria (Auto) NEG Urine Opiates Screen NEG Urine Methadone, Qualitative NEG Urine Barbiturates NEG Urine Phencyclidine (PCP) Level NEG Ur Amphetamine/Methamphetamine NEG MDMA (Ecstasy) Screen POS Urine Benzodiazepines Screen POS Urine Cocaine Metabolite NEG Urine Marijuana (THC) NEG Globulin 3.7 gm/dl Albumin/Globulin Ratio 0.9 Vitamin B12 Level 681 pg/mL Folate > 24.00 ng/mL Assessment and Plan Mr. Rosales is a 51 y/o male with PMHx of ETOH abuse with multiple complaints and ETOH withdrawal ETOH Withdrawal: 10-12 beers/day - Last Drink 11/23 at 0400 - Daily banana bag and will continue NSS at 100 mL/hr between bags which can be placed on hold during banana bag administration - Continue AWSS protocol -- Gabapentin taper and Ativan PRN Transaminitis: - AST and ALT trending down and lower than previous readings during June admission for ETOH withdrawal - Liver U/S from previous admission reviewed - heterogeneous echogenic liver - hepatic steatosis vs hepatitis - No record of Hepatitis panel in records - will obtain - Continue to monitor Chronic Thrombocytopenia: No Active Bleeding - Continue to monitor - this is likely 2/2 ETOH intake - If continues to trend down may need to D/C Heparin DVT Prophylaxis: Heparin 5000 units SC Q8H Code Status: FULL RESUSCITATION Disposition: Discussed inpatient/outpatient rehab options for ETOH - Patient reports wanting to get involved with outpatient counselor he had before - Reports that his girlfriend drinks excessively and does report difficulty abstaining due to this and from be "cocky" Continued [facility] stay due to: multiple IV medications needed Discharge planning: uncertain
[2016-11-24] MEDS: SODIUM CHLORIDE 0.9% 1000ML 1,000 ML IV SCH (14:32)
[2016-11-24] MEDS: GABAPENTIN 600MG Q8H DOSE PO SCH (17:32)
[2016-11-25] MEDS: SODIUM CHLORIDE 0.9% 1000ML 1,000 ML IV SCH ×3 (00:12→20:54)
[2016-11-25] MEDS: GABAPENTIN 600MG Q8H DOSE PO SCH ×2 (01:33→09:04)
[2016-11-25 03:19] VITALS: BP 153/98; PULSE 77; TEMP 37; O2SAT 95
[2016-11-25] MEDS: HEPARIN SOD 5000 UNIT/0.5 ML CARP SQ SCH (06:14)
[2016-11-25 07:08] LABS: BASO % 0.3 %; BASO ABS # 0.02 K/uL (0-0.2); COMPLETE YES; EOS % 0.9 %; HEMATOCRIT 44.3 % (42-52); IG% 0.5 %; LYMPH % 16.7 %; LYMPH ABS # 1.11 K/uL (1.2-3.4); MEAN CELL VOLUME 95.7 fL (80-100); MEAN CORPUSCULAR HEMOGLOBIN 31.7 pg (25-34); MEAN CORPUSCULAR HGB CONC 33.2 g/dl (32-36); MEAN PLATELET VOLUME 9.5 fL (7.4-10.4); MONO % 14.6 %; PLATELET COUNT 104 K/uL (130-400); RED BLOOD COUNT 4.63 M/uL (4.7-6.1); WHITE BLOOD COUNT 6.65 K/uL (4.8-10.8)
[2016-11-25] MEDS ORDERED: LORAZEPAM 2 MG/ML 1 ML VIAL IV PRN (07:15)
[2016-11-25 07:48] LABS: ALB/GLOB RATIO 0.9 (0.9-2); BUN/CREATININE RATIO 8.4 (10-20); CALCIUM 8.8 mg/dl (8.5-10.1); CREATININE 0.85 mg/dl (0.60-1.40); POTASSIUM 4.6 mmol/L (3.5-5.1)
[2016-11-25 08:03] VITALS: BP 146/88; PULSE 101; TEMP 37.3; O2SAT 95
[2016-11-25] MEDS: MULTI-VITAMIN INFUSION INJ 10 ML, THIAMINE HCL INJ 100 MG, FoLIC ACID INJ 1 MG in SODIU... IV SCH (08:27)
--- NOTE | 2016-11-25 09:57 | Hospitalist Progress Note ---
Hospitalist Progress Note Date of Service Nov 25, 2016. Subjective Pt evaluation today including: conversation w/ patient, physical exam, chart review, lab review, review of inpatient medication list Patient seen and evaluated. Becoming more anxious, lightheadedness improving but remains, unsteady gait, and develop hallucinations overnight. Reports that stationary objects are moving and it seemed like he was able to move things with his eyes. Continues to report poor sleep. Was medicated with Ativan prior to my exam and patient does look calm at this time without tremor noted. Only new complaint is of R elbow pain and does report H/O gout in the past. Elbow is mildly warm to touch compared to L elbow but no erythema. Has full range of motion without crepitus. Constitutional: + fatigue, No fever, No chills Eyes: No worsening of vision Respiratory: No shortness of breath Cardiovascular: No chest pain, No palpitations Abdomen: + problem reported (loose stool), No pain, No nausea, No vomiting, No diarrhea, No constipation Musculoskeletal: + joint pain (R elbow), No swelling, No calf pain Male : No dysuria Neurologic: + numbness/tingling (4th-5th fingers) Psychiatric: + anxiety, + substance abuse Skin: No rash, No new/changing skin lesions Medications Current Inpatient Medications Medications (Trade) Dose Ordered Sig/Dyan Route Start Time Stop Time Status Last Admin Dose Admin Acetaminophen (Tylenol Tab) 650 mg Q4H PRN PO 11/23/16 21:00 12/23/16 20:59 Ondansetron HCl (Zofran Inj) 4 mg Q6H PRN IV 11/23/16 21:00 12/23/16 20:59 Polyethylene (Miralax Powder Packet) 17 gm DAILY PRN PO 11/23/16 21:00 12/23/16 20:59 Miscellaneous (Iv Fluids Completed) 1 ea PRN PRN N/A 11/23/16 21:15 11/23/17 21:14 Gabapentin (Neurontin Tab) 600 mg Q12H PO 11/25/16 22:00 11/26/16 10:01 Gabapentin (Neurontin Tab) 600 mg Q24H PO 11/27/16 10:00 11/27/16 10:01 Multivitamins 10 ml/Thiamine HCl 100 mg/Folic Acid 1 mg/Sodium Chloride 1,011.2 ml @ 125 mls/ hr DAILY IV 11/24/16 09:00 12/24/16 08:59 11/25/16 08:27 125 MLS/HR Sodium Chloride 1,000 ml @ 100 mls/hr Q10H IV 11/24/16 14:30 12/24/16 14:29 11/25/16 00:12 100 MLS/HR Lorazepam (Ativan Inj) PRN Dosing -Active Protocol Q1H PRN IV 11/25/16 07:15 12/25/16 07:14 11/25/16 08:28 1 MG Objective Vital Signs Date Time Temp Pulse Resp B/P (MAP) Pulse Ox O2 Delivery O2 Flow Rate FiO2 11/25/16 08:03 37.3 101 16 146/88 (107) 95 Room Air 11/25/16 08:00 Room Air 11/25/16 04:00 Room Air 11/25/16 03:19 37.0 77 18 153/98 (116) 95 Room Air 11/25/16 00:00 Room Air 11/24/16 23:38 37.1 77 17 151/91 (111) 96 Room Air 11/24/16 20:00 Room Air 11/24/16 19:31 37.0 85 17 128/86 (100) 93 Room Air 11/24/16 16:11 37.3 96 16 132/86 (101) 94 Room Air 11/24/16 16:00 Room Air 11/24/16 11:58 37.1 90 16 146/90 (108) 93 Room Air 11/24/16 11:30 Room Air Physical Exam General Appearance: WD/WN, no apparent distress Eyes: sclerae normal ENT: hearing grossly normal Neck: supple, no JVD, trachea midline Respiratory/Chest: lungs clear, normal breath sounds, no respiratory distress, no accessory muscle use Cardiovascular: regular rate, rhythm, no gallop, no murmur Abdomen: normal bowel sounds, non tender, soft Extremities: no pedal edema, no calf tenderness, + pertinent finding (R elbow mildly warm compared to L elbow without erythema or skin breakdown; No crepitus with movement of joint; Full passive and active ROM) Neurologic/Psychiatric: alert, oriented x 3 Skin: normal color, warm/dry Laboratory Results Last 24 Hours Test 11/25/16 06:45 White Blood Count 6.65 K/uL Red Blood Count 4.63 M/uL Hemoglobin 14.7 g/dL Hematocrit 44.3 % Mean Corpuscular Volume 95.7 fL Mean Corpuscular Hemoglobin 31.7 pg Mean Corpuscular Hemoglobin Concent 33.2 g/dl Platelet Count 104 K/uL Mean Platelet Volume 9.5 fL Neutrophils (%) (Auto) 67.0 % Lymphocytes (%) (Auto) 16.7 % Monocytes (%) (Auto) 14.6 % Eosinophils (%) (Auto) 0.9 % Basophils (%) (Auto) 0.3 % Neutrophils # (Auto) 4.46 K/uL Lymphocytes # (Auto) 1.11 K/uL Monocytes # (Auto) 0.97 K/uL Eosinophils # (Auto) 0.06 K/uL Basophils # (Auto) 0.02 K/uL RDW Standard Deviation 51.3 fL RDW Coefficient of Variation 14.6 % Immature Granulocyte % (Auto) 0.5 % Immature Granulocyte # (Auto) 0.03 K/uL Sodium Level 140 mmol/L Potassium Level 4.6 mmol/L Chloride Level 105 mmol/L Carbon Dioxide Level 27 mmol/L Anion Gap 8.0 mmol/L Blood Urea Nitrogen 7 mg/dl Creatinine 0.85 mg/dl Est Creatinine Clear Calc Drug Dose 99.7 ml/min Estimated GFR () 117.8 Estimated GFR (Non- 101.6 BUN/Creatinine Ratio 8.4 Random Glucose 79 mg/dl Calcium Level 8.8 mg/dl Total Bilirubin 1.6 mg/dl Aspartate Amino Transf (AST/SGOT) 117 U/L Alanine Aminotransferase (ALT/SGPT) 127 U/L Alkaline Phosphatase 52 U/L Total Protein 7.4 gm/dl Albumin 3.5 gm/dl Globulin 3.9 gm/dl Albumin/Globulin Ratio 0.9 Lipase 137 U/L Hepatitis B Surface Antigen NEG Hepatitis C Antibody NEG Assessment and Plan Mr. Rosales is a 51 y/o male with PMHx of ETOH abuse with multiple complaints and ETOH withdrawal ETOH Withdrawal: 10-12 beers/day - Last Drink 11/23 at 0400 - > 48 HOURS - Required Ativan yesterday and this AM for increased anxiety and hallucinations - Daily banana bag and will continue NSS at 100 mL/hr between bags which can be placed on hold during banana bag administration - Continue AWSS protocol -- Gabapentin taper and Ativan PRN Transaminitis: IMPROVING - AST and ALT continues to trend down and lower than previous readings during June admission for ETOH withdrawal - Liver U/S (June 2016) - heterogeneous echogenic liver - hepatic steatosis vs hepatitis - Hepatitis panel - Neg Bs antigen and C - remaining is pending Chronic Thrombocytopenia: No Active Bleeding - Continue to monitor - this is likely 2/2 ETOH intake - will hold Heparin at this time DVT Prophylaxis: Hold Heparin 2/2 thrombocytopenia - SCDs Code Status: FULL RESUSCITATION Disposition: Discussed inpatient/outpatient rehab options for ETOH - Patient reports wanting to get involved with outpatient counselor he had before - Reports that his girlfriend drinks excessively and does report difficulty abstaining due to this and from be "cocky Continued [facility] stay due to: multiple IV medications needed Discharge planning: uncertain
[2016-11-25 10:56] LABS: REFERENCE QUEST TEST REPORT
[2016-11-25 11:49] VITALS: BP 124/80; PULSE 81; TEMP 36.8; O2SAT 97
[2016-11-25] MEDS ORDERED: LORAZEPAM IV PRN (12:00)
[2016-11-25 14:00] VITALS: BP 129/74; PULSE 110; TEMP 36.8; O2SAT 97
[2016-11-25] MEDS: LORAZEPAM INJ 2 MG in SYRINGE 1 ML IV PRN (14:48)
[2016-11-25 20:00] VITALS: BP 131/92; PULSE 79; TEMP 36.7; O2SAT 97
[2016-11-25] MEDS: GABAPENTIN 600MG Q12H DOSE PO SCH (20:54)
[2016-11-25 23:59] VITALS: BP 135/96; PULSE 82; TEMP 37; O2SAT 98
[2016-11-26] VITALS (8 sets, daily range): BP systolic 133–144; BP diastolic 92–102; PULSE 78–101; TEMP 36.7–37; O2SAT 96–99
[2016-11-26] MEDS: LORAZEPAM INJ 1 MG in SYRINGE 0.5 ML IV PRN ×2 (00:12→04:40)
[2016-11-26] MEDS: SODIUM CHLORIDE 0.9% 1000ML 1,000 ML IV SCH ×2 (03:41→16:52)
[2016-11-26 07:14] LABS: BASO % 0.5 %; BASO ABS # 0.03 K/uL (0-0.2); COMPLETE YES; EOS % 1.4 %; HEMATOCRIT 45.7 % (42-52); IG% 0.9 %; LYMPH % 24.1 %; LYMPH ABS # 1.39 K/uL (1.2-3.4); MEAN CELL VOLUME 94.8 fL (80-100); MEAN CORPUSCULAR HEMOGLOBIN 30.1 pg (25-34); MEAN CORPUSCULAR HGB CONC 31.7 g/dl (32-36); MEAN PLATELET VOLUME 9.2 fL (7.4-10.4); MONO % 21.1 %; PLATELET COUNT 117 K/uL (130-400); RED BLOOD COUNT 4.82 M/uL (4.7-6.1); WHITE BLOOD COUNT 5.77 K/uL (4.8-10.8)
[2016-11-26 07:44] LABS: BUN/CREATININE RATIO 9.2 (10-20); CALCIUM 8.6 mg/dl (8.5-10.1); CREATININE 0.88 mg/dl (0.60-1.40); POTASSIUM 4.1 mmol/L (3.5-5.1)
[2016-11-26 07:47] LABS: ALB/GLOB RATIO 0.8 (0.9-2)
[2016-11-26] MEDS: MULTI-VITAMIN INFUSION INJ 10 ML, THIAMINE HCL INJ 100 MG, FoLIC ACID INJ 1 MG in SODIU... IV SCH (08:37)
--- NOTE | 2016-11-26 09:01 | Hospitalist Progress Note ---
Hospitalist Progress Note Date of Service Nov 26, 2016. Subjective Pt evaluation today including: conversation w/ patient, physical exam, chart review, lab review, review of studies, review of inpatient medication list Patient seen and evaluated. Required Ativan at midnight and 0400. He reports that symptoms are improving however dizziness, anxiousness, tremors continue. At rest, tremors are not noticeable but with sitting up he does present with upper extremity tremors. No further hallucinations per patient. No seizure activity. Liver function testing is trending down. Patient reports that he has contact information for his alcohol counselor and requests no further high school social studies teacher assistance. Additional Comments: REVIEW OF SYSTEMS: General/Constitutional: Denies fever/chills, fatigue, weakness ENT: Denies visual changes, nasal drainage, hearing loss, sore throat, trouble swallowing Cardiovascular: Denies chest pain, palpitations, edema Respiratory: Denies cough, sputum, SOB, wheezing, orthopnea GI: Denies nausea, vomiting, abdominal pain, constipation, diarrhea, melena/ hematochezia : Denies dysuria, frequency, hematuria Musculoskeletal: Denies joint/muscle aches, weakness, swelling Neurologic: Intermittent dizziness when sitting up; 4th-5th R finger numbness/ tingling Psychiatric: +anxiety +ETOH abuse Endocrine: Deferred Hematologic/Lymphatic: Denies bleeding/clotting abnormalities Skin: Denies rash, itch, new skin changes, easy bruising Allergy/Immunologic: Deferred Medications Current Inpatient Medications Medications (Trade) Dose Ordered Sig/Dyan Route Start Time Stop Time Status Last Admin Dose Admin Acetaminophen (Tylenol Tab) 650 mg Q4H PRN PO 11/23/16 21:00 12/23/16 20:59 Ondansetron HCl (Zofran Inj) 4 mg Q6H PRN IV 11/23/16 21:00 12/23/16 20:59 Polyethylene (Miralax Powder Packet) 17 gm DAILY PRN PO 11/23/16 21:00 12/23/16 20:59 Miscellaneous (Iv Fluids Completed) 1 ea PRN PRN N/A 11/23/16 21:15 11/23/17 21:14 Gabapentin (Neurontin Tab) 600 mg Q12H PO 11/25/16 22:00 11/26/16 10:01 11/25/16 20:54 600 MG Gabapentin (Neurontin Tab) 600 mg Q24H PO 11/27/16 10:00 11/27/16 10:01 Multivitamins 10 ml/Thiamine HCl 100 mg/Folic Acid 1 mg/Sodium Chloride 1,011.2 ml @ 125 mls/ hr DAILY IV 11/24/16 09:00 12/24/16 08:59 11/26/16 08:37 125 MLS/HR Sodium Chloride 1,000 ml @ 100 mls/hr Q10H IV 11/24/16 14:30 12/24/16 14:29 11/26/16 03:41 100 MLS/HR Lorazepam (Ativan Inj) PRN Dosing -Active Protocol Q1H PRN IV 11/25/16 07:15 12/25/16 07:14 11/25/16 08:28 1 MG Lorazepam 1 mg/ Syringe 1 ml @ 1 mls/min UD PRN IV 11/25/16 11:45 12/25/16 11:44 11/26/16 04:40 1 MLS/MIN Lorazepam 2 mg/ Syringe 2 ml @ 1 mls/min UD PRN IV 11/25/16 11:45 12/25/16 11:44 11/25/16 14:48 1 MLS/MIN Lorazepam 3 mg/ Syringe 2.5 ml @ 1 mls/min UD PRN IV 11/25/16 12:00 12/25/16 11:59 Objective Vital Signs Date Time Temp Pulse Resp B/P (MAP) Pulse Ox O2 Delivery O2 Flow Rate FiO2 11/26/16 08:30 87 18 138/92 (107) 11/26/16 08:19 36.7 84 18 135/102 (113) 99 Room Air 11/26/16 04:11 36.8 78 18 144/102 (116) 97 Room Air 11/26/16 00:00 Room Air 11/25/16 23:59 37.0 82 20 135/96 (109) 98 Room Air 11/25/16 20:00 36.7 79 18 131/92 (105) 97 Room Air 11/25/16 16:00 Room Air 11/25/16 14:00 36.8 110 20 129/74 (92) 97 Room Air 11/25/16 11:49 36.8 81 20 124/80 (95) 97 Room Air Physical Exam General Appearance: WD/WN, no apparent distress Eyes: sclerae normal ENT: hearing grossly normal Neck: supple, no JVD, trachea midline Respiratory/Chest: lungs clear, normal breath sounds, no respiratory distress, no accessory muscle use Cardiovascular: regular rate, rhythm, no gallop, no murmur Abdomen: normal bowel sounds, non tender, soft Extremities: no pedal edema, no calf tenderness Neurologic/Psychiatric: alert, oriented x 3, + pertinent finding (tremor with purposeful movements of upper extremities) Skin: normal color, warm/dry Laboratory Results Last 24 Hours Test 11/26/16 06:41 White Blood Count 5.77 K/uL Red Blood Count 4.82 M/uL Hemoglobin 14.5 g/dL Hematocrit 45.7 % Mean Corpuscular Volume 94.8 fL Mean Corpuscular Hemoglobin 30.1 pg Mean Corpuscular Hemoglobin Concent 31.7 g/dl Platelet Count 117 K/uL Mean Platelet Volume 9.2 fL Neutrophils (%) (Auto) 52.0 % Lymphocytes (%) (Auto) 24.1 % Monocytes (%) (Auto) 21.1 % Eosinophils (%) (Auto) 1.4 % Basophils (%) (Auto) 0.5 % Neutrophils # (Auto) 3.00 K/uL Lymphocytes # (Auto) 1.39 K/uL Monocytes # (Auto) 1.22 K/uL Eosinophils # (Auto) 0.08 K/uL Basophils # (Auto) 0.03 K/uL RDW Standard Deviation 50.4 fL RDW Coefficient of Variation 14.5 % Immature Granulocyte % (Auto) 0.9 % Immature Granulocyte # (Auto) 0.05 K/uL Sodium Level 143 mmol/L Potassium Level 4.1 mmol/L Chloride Level 108 mmol/L Carbon Dioxide Level 26 mmol/L Anion Gap 9.0 mmol/L Blood Urea Nitrogen 8 mg/dl Creatinine 0.88 mg/dl Est Creatinine Clear Calc Drug Dose 96.3 ml/min Estimated GFR () 116.1 Estimated GFR (Non- 100.2 BUN/Creatinine Ratio 9.2 Random Glucose 76 mg/dl Calcium Level 8.6 mg/dl Total Bilirubin 1.3 mg/dl Aspartate Amino Transf (AST/SGOT) 84 U/L Alanine Aminotransferase (ALT/SGPT) 115 U/L Alkaline Phosphatase 52 U/L Total Protein 7.3 gm/dl Albumin 3.3 gm/dl Globulin 4.0 gm/dl Albumin/Globulin Ratio 0.8 Assessment and Plan Mr. Rosales is a 51 y/o male with PMHx of ETOH abuse with multiple complaints and ETOH withdrawal ETOH Withdrawal: 10-12 beers/day - Last Drink 11/23 at 0400 - > 72 HOURS - Required Ativan overnight - hallucinations resolved - Daily banana bag and will continue NSS at 100 mL/hr between bags which can be placed on hold during banana bag administration - Continue AWSS protocol -- Gabapentin taper and Ativan PRN Transaminitis: IMPROVING - AST and ALT continues to trend down and lower than previous readings during June admission for ETOH withdrawal - Liver U/S (June 2016) - heterogeneous echogenic liver - hepatic steatosis vs hepatitis - Hepatitis panel - negative Chronic Thrombocytopenia: No Active Bleeding - Continue to monitor - this is likely 2/2 ETOH intake - will hold Heparin at this time DVT Prophylaxis: Hold Heparin 2/2 thrombocytopenia - SCDs Code Status: FULL RESUSCITATION Disposition: Discussed inpatient/outpatient rehab options for ETOH - states he will contact counselor for outpatient assistance. Offered high school social studies teacher for assistance and patient declined. - Reports that his girlfriend drinks excessively and does report difficulty abstaining due to this and from be "cocky" - no interest in inpatient detox and reports multiple inpatient stays in the past - Hopeful D/C in 1-2 days - hopeful for less Ativan needs throughout the day Continued [facility] stay due to: other (ETOH withdrawal symptoms) Discharge planning: home
[2016-11-26] MEDS: GABAPENTIN 600MG Q12H DOSE PO SCH (10:08)
[2016-11-26] MEDS: LORAZEPAM INJ 2 MG in SYRINGE 1 ML IV PRN (23:32)
[2016-11-27 00:05] VITALS: BP 140/95; PULSE 73; TEMP 36.8; O2SAT 97
[2016-11-27] MEDS: SODIUM CHLORIDE 0.9% 1000ML 1,000 ML IV SCH (02:30)
[2016-11-27 04:45] VITALS: BP 146/98; PULSE 96; TEMP 37; O2SAT 96
[2016-11-27] MEDS: LORAZEPAM INJ 1 MG in SYRINGE 0.5 ML IV PRN (05:19)
[2016-11-27 06:47] LABS: HEMATOCRIT 44.9 % (42-52); MEAN CELL VOLUME 93.9 fL (80-100); MEAN CORPUSCULAR HEMOGLOBIN 30.5 pg (25-34); MEAN CORPUSCULAR HGB CONC 32.5 g/dl (32-36); MEAN PLATELET VOLUME 9.3 fL (7.4-10.4); PLATELET COUNT 131 K/uL (130-400); RED BLOOD COUNT 4.78 M/uL (4.7-6.1); WHITE BLOOD COUNT 6.28 K/uL (4.8-10.8)
[2016-11-27 07:06] LABS: BUN/CREATININE RATIO 11.7 (10-20); CALCIUM 8.6 mg/dl (8.5-10.1); CREATININE 0.77 mg/dl (0.60-1.40); POTASSIUM 3.6 mmol/L (3.5-5.1)
[2016-11-27 07:39] VITALS: BP 148/96; PULSE 96; TEMP 36.7; O2SAT 99
[2016-11-27] MEDS: MULTI-VITAMIN INFUSION INJ 10 ML, THIAMINE HCL INJ 100 MG, FoLIC ACID INJ 1 MG in SODIU... IV SCH (08:31)
[2016-11-27] MEDS ORDERED: GABAPENTIN 600MG Q24H DOSE PO SCH (10:00)
[2016-11-27] MEDS ORDERED: TRAMADOL HCL 50 MG TAB PO PRN (11:15)
--- NOTE | 2016-11-27 11:21 | Hospitalist Progress Note ---
Hospitalist Progress Note Date of Service Nov 27, 2016. Subjective Pt evaluation today including: conversation w/ patient, physical exam, chart review, review of studies, review of inpatient medication list Patient seen and evaluated. Continues to report unsteadiness with walking and some lightheadedness but improving. Did require ativan last night. States when he is about to fall asleep he has muscle spams that wake him up. Normally takes Remeron and Trazadone. Will add these medications back on and hopefully less ativan will be needed. Stated he does not feel ready to go home yet but appears more related to social issues with his girlfriend who drinks and "I want to have my mind straight" Continues to express how he doesn't want to drink again and reports he is not going to. Again declines public health social worker assistance with outpatient services. Has had numerous alcohol related admissions and ED visits in past 1-2 years Constitutional: + problem reported (intermittent lightheadedness), No fever , No chills Eyes: No worsening of vision ENT: No nasal symptoms, No trouble swallowing Respiratory: No cough, No shortness of breath Cardiovascular: No chest pain, No palpitations Abdomen: No pain, No nausea, No vomiting, No diarrhea, No constipation Musculoskeletal: No swelling, No calf pain Male : No dysuria Neurologic: + numbness/tingling (4th-5th fingers), + balance problems Psychiatric: + anxiety (mild), + insomnia (chronic), + substance abuse Skin: + problem reported (dry skin of face - reports related to dry shaving) , No rash Medications Current Inpatient Medications Medications (Trade) Dose Ordered Sig/Dyan Route Start Time Stop Time Status Last Admin Dose Admin Acetaminophen (Tylenol Tab) 650 mg Q4H PRN PO 11/23/16 21:00 12/23/16 20:59 Ondansetron HCl (Zofran Inj) 4 mg Q6H PRN IV 11/23/16 21:00 12/23/16 20:59 Polyethylene (Miralax Powder Packet) 17 gm DAILY PRN PO 11/23/16 21:00 12/23/16 20:59 Miscellaneous (Iv Fluids Completed) 1 ea PRN PRN N/A 11/23/16 21:15 11/23/17 21:14 Multivitamins 10 ml/Thiamine HCl 100 mg/Folic Acid 1 mg/Sodium Chloride 1,011.2 ml @ 125 mls/ hr DAILY IV 11/24/16 09:00 12/24/16 08:59 11/27/16 08:31 125 MLS/HR Lorazepam (Ativan Inj) PRN Dosing -Active Protocol Q1H PRN IV 11/25/16 07:15 12/25/16 07:14 11/25/16 08:28 1 MG Lorazepam 1 mg/ Syringe 1 ml @ 1 mls/min UD PRN IV 11/25/16 11:45 12/25/16 11:44 11/27/16 05:19 1 MLS/MIN Lorazepam 2 mg/ Syringe 2 ml @ 1 mls/min UD PRN IV 11/25/16 11:45 12/25/16 11:44 11/26/16 23:32 1 MLS/MIN Lorazepam 3 mg/ Syringe 2.5 ml @ 1 mls/min UD PRN IV 11/25/16 12:00 12/25/16 11:59 Mirtazapine (Remeron Tab) 15 mg HS PO 11/27/16 22:00 12/27/16 21:59 UNV Tramadol HCl (Ultram Tab) 50 mg Q4H PRN PO 11/27/16 11:15 12/27/16 11:14 UNV Trazodone HCl (Desyrel Tab) 50 mg HS PO 11/27/16 22:00 12/27/16 21:59 UNV Objective Vital Signs Date Time Temp Pulse Resp B/P (MAP) Pulse Ox O2 Delivery O2 Flow Rate FiO2 11/27/16 08:00 Room Air 11/27/16 07:39 36.7 96 18 148/96 (113) 99 Room Air 11/27/16 04:45 37.0 96 18 146/98 (114) 96 Room Air 11/27/16 00:05 36.8 73 20 140/95 (110) 97 Room Air 11/26/16 23:59 Room Air 11/26/16 22:17 36.7 101 20 136/101 (113) 96 Room Air 11/26/16 16:30 37.0 78 18 143/94 (110) 96 Room Air 11/26/16 16:00 Room Air 11/26/16 15:09 36.7 85 18 144/99 (114) 96 Room Air 11/26/16 12:30 36.7 81 18 133/93 (106) 99 Room Air Physical Exam General Appearance: WD/WN, no apparent distress Eyes: sclerae normal ENT: hearing grossly normal Neck: supple, no JVD, trachea midline Respiratory/Chest: lungs clear, normal breath sounds, no respiratory distress, no accessory muscle use Cardiovascular: regular rate, rhythm, no gallop, no murmur Abdomen: normal bowel sounds, non tender, soft Extremities: no pedal edema, no calf tenderness Neurologic/Psychiatric: alert, oriented x 3 Skin: normal color, warm/dry Laboratory Results Last 24 Hours Test 11/27/16 06:26 White Blood Count 6.28 K/uL Red Blood Count 4.78 M/uL Hemoglobin 14.6 g/dL Hematocrit 44.9 % Mean Corpuscular Volume 93.9 fL Mean Corpuscular Hemoglobin 30.5 pg Mean Corpuscular Hemoglobin Concent 32.5 g/dl RDW Standard Deviation 49.6 fL RDW Coefficient of Variation 14.3 % Platelet Count 131 K/uL Mean Platelet Volume 9.3 fL Sodium Level 140 mmol/L Potassium Level 3.6 mmol/L Chloride Level 107 mmol/L Carbon Dioxide Level 23 mmol/L Anion Gap 10.0 mmol/L Blood Urea Nitrogen 9 mg/dl Creatinine 0.77 mg/dl Est Creatinine Clear Calc Drug Dose 110.0 ml/min Estimated GFR () 122.6 Estimated GFR (Non- 105.8 BUN/Creatinine Ratio 11.7 Random Glucose 70 mg/dl Calcium Level 8.6 mg/dl Assessment and Plan Mr. Rosales is a 51 y/o male with PMHx of ETOH abuse with multiple complaints and ETOH withdrawal ETOH Withdrawal: 10-12 beers/day - Last Drink 11/23 at 0400 - Ativan only required at night and early mornings x 2 days - will add Remeron and Trazadone from home meds back on - question chronic issues affecting AWSS score - Daily banana bag but no other fluids necessary - Continue AWSS protocol - hopefully with home meds on board less Ativan will be necessary -- Gabapentin taper will be completed today 11/27 Transaminitis: IMPROVING - Obtain CMP in AM Chronic Thrombocytopenia: No Active Bleeding - Continue to monitor - this is likely 2/2 ETOH intake - continue to hold Heparin at this time DVT Prophylaxis: Hold Heparin 2/2 thrombocytopenia - SCDs Code Status: FULL RESUSCITATION Disposition: Discussed inpatient/outpatient rehab options for ETOH - states he will contact counselor for outpatient assistance. Offered public health social worker for assistance and patient declined. Offered public health social worker assistance again and declined. - Reports that his girlfriend drinks excessively and does report difficulty abstaining due to this and from be "cocky" - no interest in inpatient detox and reports multiple inpatient stays in the past - Discharge tomorrow Continued [facility] stay due to: multiple IV medications needed Discharge planning: home
[2016-11-27 11:53] VITALS: BP 136/97; PULSE 77; TEMP 36.8; O2SAT 97
[2016-11-27 12:42] LABS: HYDROXYETHYLFLURAZEPAM CONF NEGATIVE NG/ML (CUTOFF=50); HYDROXYMIDAZOLAM NEGATIVE NG/ML (CUTOFF=50); HYDROXYTRIAZOLAM CONF NEGATIVE NG/ML (CUTOFF=50); TEMAZEPAM CONF 457 NG/ML (CUTOFF=50)
[2016-11-27 16:30] VITALS: BP 166/93; PULSE 73; TEMP 36.6; O2SAT 97
[2016-11-27] MEDS: LORAZEPAM INJ 2 MG in SYRINGE 1 ML IV PRN (19:39)
[2016-11-27] MEDS: MIRTAZAPINE TAB 15 MG TAB PO SCH (21:42)
[2016-11-27] MEDS: TRAZODONE HCL 50 MG TAB PO SCH (21:42)
[2016-11-28 00:08] VITALS: BP 137/95; PULSE 64; TEMP 36.3; O2SAT 94
[2016-11-28 04:37] VITALS: BP 144/95; PULSE 75; TEMP 36.6; O2SAT 96
[2016-11-28] MEDS: LORAZEPAM INJ 1 MG in SYRINGE 0.5 ML IV PRN ×2 (04:49→10:28)
[2016-11-28 06:43] VITALS: BP 135/99; PULSE 70; TEMP 36.7; O2SAT 97
[2016-11-28 07:15] VITALS: BP 136/92; PULSE 70; TEMP 36.6; O2SAT 97
[2016-11-28 07:17] LABS: HEMATOCRIT 47.6 % (42-52); MEAN CELL VOLUME 94.1 fL (80-100); MEAN CORPUSCULAR HEMOGLOBIN 30.4 pg (25-34); MEAN CORPUSCULAR HGB CONC 32.4 g/dl (32-36); MEAN PLATELET VOLUME 9.6 fL (7.4-10.4); PLATELET COUNT 149 K/uL (130-400); RED BLOOD COUNT 5.06 M/uL (4.7-6.1); WHITE BLOOD COUNT 6.72 K/uL (4.8-10.8)
[2016-11-28 07:50] LABS: ALB/GLOB RATIO 0.8 (0.9-2); BUN/CREATININE RATIO 9.1 (10-20); CALCIUM 9.3 mg/dl (8.5-10.1); POTASSIUM 4.7 mmol/L (3.5-5.1)
--- NOTE | 2016-11-28 13:02 | Hospitalist Progress Note ---
Hospitalist Progress Note Date of Service Nov 28, 2016. Subjective Pt evaluation today including: conversation w/ patient, physical exam, chart review, lab review, review of inpatient medication list Extended visit with patient today for approximately 1-1/2 hours. Patient has had no seizure activity. Throughout the day patient does not require Ativan per AWSS protocol. Ativan is only utilized at night and youth officer. I addressed this finding with the patient who reports racing thoughts and increased anxiety as he thinks a lot prior to falling asleep. He states that through the day he does have anxiety but is able to suppress that but his thoughts race at night. Reassured the patient that this is likely not alcohol withdrawal but related to ongoing issues. He states when he is sober he is more productive and ultimately less anxious. He has been suppressing anxiety with alcohol for a long time. Unsure of last time he was sober as he has been here numerous times over the past couple years between admission and ER visits related to alcohol. He continues to express that he plans on being sober however refuses to allow us to assist him in outpatient appointments. Also had a long discussion about his social situation. He currently lives with a girlfriend who is likely agoraphobic. He states that she appears depressed, is not showering for weeks, does not venture outside the house, and drinks excessively. He states that he feels that he drinks because she does too and it is hard to refuse drinking when she is doing it all the time. Currently, he also expresses anxiety because he thinks he will have a seizure as he reports muscle spasms. However he never has these muscle spasms during a visit and with my hour long discussion today he had no muscle spasms. Also reassured him that muscle spasms are not precipitating triggers for seizure activity. He does have some mild hand tremors. Discussed possibility of antidepressant therapy and establishment with psychiatry. He is interested in this option as well as getting established with a PCP which we will help him do. Do suspect he has underlying ongoing depression/anxiety or other psychiatric conditions. Aside from drinking, patient appears to have poor coping mechanisms and a poor social environment. However, patient does have an optimistic outlook but generally an unrealistic abstinence plan. He denies suicidal ideations or plan. Bluntly asked him what his plan is from here. He reports that he is starting a job on Wednesday and hopes to keep himself busy through the day to help reduce free time to drink. He states that he will avoid his girlfriend when she drinks. Prognosis of sobriety is guarded. Constitutional: No fever, No chills Eyes: No worsening of vision Respiratory: No shortness of breath Cardiovascular: No chest pain, No palpitations Abdomen: No pain, No nausea, No vomiting, No diarrhea, No constipation Musculoskeletal: No swelling, No calf pain Male : No dysuria Neurologic: + numbness/tingling (4th-5th fingers) Psychiatric: + anxiety, + substance abuse Heme: No abnormal bleeding/bruising Skin: + problem reported (dry/reddened face 2/2 dry shaving) Medications Current Inpatient Medications Medications (Trade) Dose Ordered Sig/Dyan Route Start Time Stop Time Status Last Admin Dose Admin Acetaminophen (Tylenol Tab) 650 mg Q4H PRN PO 11/23/16 21:00 12/23/16 20:59 Ondansetron HCl (Zofran Inj) 4 mg Q6H PRN IV 11/23/16 21:00 12/23/16 20:59 Polyethylene (Miralax Powder Packet) 17 gm DAILY PRN PO 11/23/16 21:00 12/23/16 20:59 Miscellaneous (Iv Fluids Completed) 1 ea PRN PRN N/A 11/23/16 21:15 11/23/17 21:14 Mirtazapine (Remeron Tab) 15 mg HS PO 11/27/16 22:00 12/27/16 21:59 11/27/16 21:42 15 MG Tramadol HCl (Ultram Tab) 50 mg Q4H PRN PO 11/27/16 11:15 12/27/16 11:14 11/28/16 10:28 50 MG Trazodone HCl (Desyrel Tab) 50 mg HS PO 11/27/16 22:00 12/27/16 21:59 11/27/16 21:42 50 MG Lorazepam (Ativan Tab) 0.5 mg Q8H PRN PO 11/28/16 12:30 12/28/16 12:29 Objective Vital Signs Date Time Temp Pulse Resp B/P (MAP) Pulse Ox O2 Delivery O2 Flow Rate FiO2 11/28/16 07:51 Room Air 11/28/16 07:15 36.6 70 16 136/92 (107) 97 Room Air 11/28/16 06:43 36.7 70 18 135/99 (111) 97 Room Air 11/28/16 04:37 36.6 75 18 144/95 (111) 96 Room Air 11/28/16 00:08 36.3 64 18 137/95 (109) 94 Room Air 11/27/16 23:59 Room Air 11/27/16 16:30 36.6 73 18 166/93 (117) 97 Room Air 11/27/16 16:10 Room Air Physical Exam General Appearance: WD/WN, no apparent distress Eyes: sclerae normal ENT: hearing grossly normal Neck: supple, no JVD, trachea midline Respiratory/Chest: lungs clear, normal breath sounds, no respiratory distress, no accessory muscle use Cardiovascular: regular rate, rhythm, no gallop, no murmur Abdomen: normal bowel sounds, non tender, soft Extremities: no pedal edema, no calf tenderness Neurologic/Psychiatric: alert, oriented x 3, + pertinent finding (mild tremor of hands) Skin: normal color, warm/dry Laboratory Results Last 24 Hours Test 11/28/16 06:55 White Blood Count 6.72 K/uL Red Blood Count 5.06 M/uL Hemoglobin 15.4 g/dL Hematocrit 47.6 % Mean Corpuscular Volume 94.1 fL Mean Corpuscular Hemoglobin 30.4 pg Mean Corpuscular Hemoglobin Concent 32.4 g/dl RDW Standard Deviation 48.9 fL RDW Coefficient of Variation 14.3 % Platelet Count 149 K/uL Mean Platelet Volume 9.6 fL Sodium Level 140 mmol/L Potassium Level 4.7 mmol/L Chloride Level 106 mmol/L Carbon Dioxide Level 26 mmol/L Anion Gap 8.0 mmol/L Blood Urea Nitrogen 9 mg/dl Creatinine 1.00 mg/dl Est Creatinine Clear Calc Drug Dose 84.7 ml/min Estimated GFR () 101.3 Estimated GFR (Non- 87.4 BUN/Creatinine Ratio 9.1 Random Glucose 71 mg/dl Calcium Level 9.3 mg/dl Total Bilirubin 1.1 mg/dl Aspartate Amino Transf (AST/SGOT) 74 U/L Alanine Aminotransferase (ALT/SGPT) 118 U/L Alkaline Phosphatase 57 U/L Total Protein 8.1 gm/dl Albumin 3.6 gm/dl Globulin 4.5 gm/dl Albumin/Globulin Ratio 0.8 Assessment and Plan Mr. Rosales is a 51 y/o male with PMHx of ETOH abuse with multiple complaints and ETOH withdrawal ETOH Withdrawal: 10-12 beers/day - Last Drink 11/23 at 0400 - No seizure activity and not requiring Ativan throughout the day mostly at night and youth officer - D/C AWSS protocol - Gabapentin taper complete - Ativan 0.5 mg po Q8H PRN Transaminitis: IMPROVING - Continues to trend down but mildly elevated - expect possible chronic elevation Chronic Thrombocytopenia: No Active Bleeding - Likely 2/2 ETOH intake - continue to hold Heparin at this time - currently normalized DVT Prophylaxis: Hold Heparin 2/2 thrombocytopenia (which has normalized with holding)- SCDs Code Status: FULL RESUSCITATION Disposition: - Continues to decline offers for health care social worker for outpatient ETOH counseling and reports he has numbers to contact - Consult for Nurse Navigator to establish him with [facility] from the hospital for PCP follow-up - Patient appears to have underlying depression/anxiety issues that are driving his current symptoms and appears to be avoiding returning home to living situation - after approx 1 1/2 hour conversation addressing his underlying issues - plan for D/C home tomorrow and right now patient in agreement Discharge planning: home
[2016-11-28] MEDS: LORAZEPAM 0.5 MG TAB PO PRN (13:48)
[2016-11-28 15:39] VITALS: BP 145/94; PULSE 78; TEMP 36.7; O2SAT 97
[2016-11-28] MEDS: MIRTAZAPINE TAB 15 MG TAB PO SCH (22:46)
[2016-11-28] MEDS: TRAZODONE HCL 50 MG TAB PO SCH (23:01)
[2016-11-28 23:10] VITALS: BP 127/86; PULSE 76; TEMP 36.4; O2SAT 96
[2016-11-29] MEDS: LORAZEPAM 0.5 MG TAB PO PRN ×2 (06:20→14:15)
[2016-11-29 07:53] VITALS: BP 134/92; PULSE 75; TEMP 36.4; O2SAT 97
[2016-11-29 09:10] VITALS: BP 108/75; PULSE 93; O2SAT 95
[2016-11-29 15:02] VITALS: BP 128/95; PULSE 81; TEMP 36.6; O2SAT 97
[2016-11-29] MEDS ORDERED: FLUC100T4 PO (15:45)
[2016-11-29] MEDS ORDERED: ATV5 PO (15:45)
--- NOTE | 2016-11-29 15:48 | Discharge Instructions ---
Discharge Instructions Date of Service Nov 29, 2016. Admission Reason for Admission: Alchohol Withdrawal Discharge Discharge Diagnosis / Problem: Alcohol withdrawal, anxiety, tinea Discharge Goals Goal(s): Improve function, Improve disease control Activity Recommendations Activity Limitations: resume your previous activity Lifting Limitations: none Exercise/Sports Limitations: as tolerated May Resume Sexual Activity: when tolerated Shower/Bathe: no limitations Driving or Machine Use: no driving while on Ativan . Instructions / Follow-Up Instructions / Follow-Up Medications: - Ativan: take as needed for the next few days, can use up to 3 times a day, do not take more than prescribed - Diflucan: take for skin infection, finish out prescription FOLLOW UP - Nurse navigator will assist in setting up appointment with [facility] residents Current Hospital Diet Patient's current hospital diet: Regular Diet Discharge Diet Recommended Diet: Regular Diet Pending Studies Studies pending at discharge: no Medical Emergencies . Who to Call and When: Medical Emergencies: If at any time you feel your situation is an emergency, please call 911 immediately. . Non-Emergent Contact Non-Emergency issues call your: Primary Care Provider Call Non-Emergent contact if: you have any medication questions . . "Provider Documentation" section prepared by Junior Rodas. . VTE Core Measure Inpt VTE Proph given/why not?: Unfractionated heparin S[place] Drug Monitoring Program Search Results: no issues identified
--- NOTE | 2016-11-29 15:52 | Progress Note ---
Subjective Date of Service: Nov 29, 2016. Subjective Pt evaluation today including: conversation w/ patient, physical exam, review of inpatient medication list Pain: no pain PO Intake: adequate Voiding: no voiding problems patient wants to leave in the AM, feels he will be ready concerned about rash on face, appears fungal Problem List Medical Problems: (1) Alcohol abuse Status: Acute (2) Alcohol intoxication Status: Acute (3) Alcohol withdrawal Status: Acute (4) Alcohol withdrawal Status: Acute (5) Alcohol withdrawal Status: Acute (6) Alcohol withdrawal Status: Acute (7) Alcohol withdrawal Status: Acute (8) Alcoholic Status: Acute (9) Alcoholic hepatitis Status: Acute (10) Anxiety Status: Acute (11) Atrial fibrillation with RVR Status: Acute (12) Chest pain Status: Acute (13) Elevated LFTs Status: Acute (14) Facial laceration Status: Acute (15) Fall Status: Acute (16) High anion gap metabolic acidosis Status: Acute (17) Hypokalemia Status: Acute (18) Hypophosphatemia Status: Acute (19) Lip laceration Status: Acute (20) Malnutrition Status: Acute (21) Seizure Status: Acute (22) Thrombocytopenia Status: Acute Review of Systems Psychiatric: + anxiety Skin: + rash (on face, chest) All Other Systems: Reviewed and Negative Medications Current Inpatient Medications Medications (Trade) Dose Ordered Sig/Dyan Route Start Time Stop Time Status Last Admin Dose Admin Acetaminophen (Tylenol Tab) 650 mg Q4H PRN PO 11/23/16 21:00 12/23/16 20:59 Ondansetron HCl (Zofran Inj) 4 mg Q6H PRN IV 11/23/16 21:00 12/23/16 20:59 Polyethylene (Miralax Powder Packet) 17 gm DAILY PRN PO 11/23/16 21:00 12/23/16 20:59 Miscellaneous (Iv Fluids Completed) 1 ea PRN PRN N/A 11/23/16 21:15 11/23/17 21:14 Mirtazapine (Remeron Tab) 15 mg HS PO 11/27/16 22:00 12/27/16 21:59 11/28/16 22:46 15 MG Tramadol HCl (Ultram Tab) 50 mg Q4H PRN PO 11/27/16 11:15 12/27/16 11:14 11/28/16 10:28 50 MG Trazodone HCl (Desyrel Tab) 50 mg HS PO 11/27/16 22:00 12/27/16 21:59 11/28/16 23:01 50 MG Lorazepam (Ativan Tab) 0.5 mg Q8H PRN PO 11/28/16 12:30 12/28/16 12:29 11/29/16 14:15 0.5 MG Objective Vital Signs Date Time Temp Pulse Resp B/P (MAP) Pulse Ox O2 Delivery O2 Flow Rate FiO2 11/29/16 15:02 36.6 81 19 128/95 (106) 97 Room Air 11/29/16 09:10 93 20 108/75 (86) 95 Room Air 11/29/16 08:00 Room Air 11/29/16 07:53 36.4 75 17 134/92 (106) 97 11/29/16 00:05 Room Air 11/28/16 23:10 36.4 76 20 127/86 (100) 96 Room Air 11/28/16 20:05 Room Air 11/28/16 16:00 Room Air Physical Exam General Appearance: WD/WN, no apparent distress Eyes: normal inspection, EOMI, sclerae normal Respiratory/Chest: chest non-tender, lungs clear, normal breath sounds, no respiratory distress, no accessory muscle use Cardiovascular: regular rate, rhythm, no edema, no gallop, no JVD, no murmur Abdomen: normal bowel sounds, non tender, soft, no organomegaly Extremities: normal range of motion, non-tender, normal inspection, no pedal edema, no calf tenderness Neurologic/Psychiatric: photographer apprentice II-XII nml as tested, no motor/sensory deficits, alert, oriented x 3, + pertinent finding (anxious) Skin: + rash (on face, chest, appears to be like tinea) Assessment and Plan Mr. 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 - D/C AWSS protocol - Gabapentin taper complete - Ativan 0.5 mg po Q8H PRN, will d/c home on short course Tinea: on face and chest, start Diflucan Transaminitis: IMPROVING - Continues to trend down but mildly elevated - expect possible chronic elevation Chronic Thrombocytopenia: No Active Bleeding - Likely 2/2 ETOH intake - continue to hold Heparin at this time - currently normalized DVT Prophylaxis: Hold Heparin 2/2 thrombocytopenia (which has normalized with holding)- SCDs Code Status: FULL RESUSCITATION Disposition: - Continues to decline offers for rn social work for outpatient ETOH counseling and reports he has numbers to contact - Consult for Nurse Navigator to establish him with [facility] from the hospital for PCP follow-up - Patient appears to have underlying depression/anxiety issues that are driving his current symptoms and appears to be avoiding returning home to living situation - after approx 1 1/2 hour conversation addressing his underlying issues - plan for D/C home tomorrow Continued [facility] stay due to: multiple IV medications needed Discharge planning: home
[2016-11-29] MEDS ORDERED: FLUCONAZOLE 100 MG TAB PO ONE (16:00)
[2016-11-29] MEDS: TRAZODONE HCL 50 MG TAB PO SCH (22:14)
[2016-11-29] MEDS: MIRTAZAPINE TAB 15 MG TAB PO SCH (22:14)
[2016-11-29 23:11] VITALS: BP 111/74; PULSE 78; TEMP 36.7; O2SAT 96
[2016-11-30] MEDS: LORAZEPAM 0.5 MG TAB PO PRN ×3 (00:38→16:48)
[2016-11-30 07:28] VITALS: BP 130/93; PULSE 84; TEMP 36.9; O2SAT 97
[2016-11-30] MEDS ORDERED: FLUCONAZOLE 100 MG TAB PO SCH (08:00)
[2016-11-30] MEDS ORDERED: HYDROCORTISONE 1% CR 30 GM TUBE EXT ONE (10:30)
--- NOTE | 2016-11-30 11:06 | Hospitalist Progress Note ---
Hospitalist Progress Note Date of Service Nov 30, 2016. (Margaret Guzman ., PA-C) Subjective Pt evaluation today including: conversation w/ patient, physical exam, chart review, lab review, review of inpatient medication list Pain: None PO Intake: Tolerating PO diet Voiding: no voiding problems Patient complains of some mild tremors, particularly when he is trying to feed himself. He also notes some palpitations, and he will intermittently become short of breath and dizzy. He still complains of tingling in his right 4th and 5th digits. He expresses a lot of anxiety about returning home, where he lives with his girlfriend. He states that she "stresses him out" and is also an alcoholic, so this is a difficult home environment to return to. The patient states that he has nowhere else to stay. He does not have friends/family in the area and cannot afford a hotel or to move out. He has stayed in a local intermediate house before, and will try to set himself up there again so he does not return to drinking. The patient expressed fear of losing his temper and possibly doing something he'd regret to his girlfriend when speaking with Dr. Ramos. The patient denies fevers, chills, sweats, chest pain, claudication, cough, wheezing, nausea, vomiting, abdominal pain, dysuria, hematuria, urinary retention, paralysis, weakness. Additional Comments: See HPI for pertinent positives and negatives. All other systems reviewed and negative. (Margaret Guzman ., PA-C) Objective Vital Signs Date Time Temp Pulse Resp B/P (MAP) Pulse Ox O2 Delivery O2 Flow Rate FiO2 11/30/16 08:01 Room Air 11/30/16 07:28 36.9 84 16 130/93 (105) 97 Room Air 11/30/16 00:05 Room Air 11/29/16 23:11 36.7 78 20 111/74 (86) 96 Room Air 11/29/16 16:20 Room Air 11/29/16 15:02 36.6 81 19 128/95 (106) 97 Room Air (Margaret Guzman ., PA-C) Physical Exam General Appearance: WD/WN, no apparent distress, + obese Eyes: normal inspection, PERRL, EOMI ENT: normal ENT inspection, hearing grossly normal, pharynx normal, + pertinent finding (erythematous, dry rash on face) Neck: supple, no JVD, trachea midline Respiratory/Chest: lungs clear, normal breath sounds, no respiratory distress Cardiovascular: regular rate, rhythm, no gallop, no murmur Abdomen: normal bowel sounds, non tender, soft Extremities: non-tender, normal inspection, no pedal edema Neurologic/Psychiatric: alert, oriented x 3, + depressed affect, + pertinent finding (anxious) Skin: normal color, warm/dry, + rash (erythematous, dry rash on face and anterior chest) (Margaret Guzman ., PA-C) Assessment and Plan 51 y/o male with a history of ETOH abuse presenting with alcohol withdrawal. ETOH withdrawal, drinks 10-12 beers/day - last drink 11/23 at 0400--stable -Admitted to telemetry, transferred to med/surg -No seizure activity -Taking Ativan twice a day moreso for anxiety than withdrawal. D/C AWSS protocol - Gabapentin taper complete - Ativan 0.5 mg po Q8H PRN Seborrheic dermatitis -D/C Diflucan -Apply hydrocortisone 1% cream external BID Anxiety/depression, ?homicidal thoughts--concerned about returning home, hurting his girlfriend. Denies ever abusing her before -Psych consulted, appreciate recs -D/C tramadol Transaminitis--improving - Continues to trend down but still mildly elevated - Pt with h/o fatty liver Chronic Thrombocytopenia--stable - Likely 2/2 ETOH intake - continue to hold Heparin at this time - currently normalized - PLT remain WNL DVT prophylaxis -SCDs Code Status -Level I, FULL RESUSCITATION STATUS Dispo -Was ready for discharge, but pt voiced severe anxiety and was worried that he might lose his temper back at home and hurt his girlfriend -Psych will see, appreciate recs -non emergency services ambulance driver consulted to help pt set up outpatient psych services, intermediate house -Will set up with [facility] for PCP (Margaret Guzman ., PA-C) Reviewed: Pt Seen/Exam by Me (Dana Ramos MD) History Physician Community Services Coordinator Supervision Note: I interviewed and examined the patient. Discussed with JASMINA Guzman and agree with findings and plan as documented in the note. Any exceptions or clarifications are listed here: Pt very anxious about dc to home today, asking to stay one more day to help relieve anxiety. He voiced concern about losing his temper with his girlfriend, but states he wouldn't hurt her. He may have been manipulative in order to get me to let him stay another day after discussing his history with staff and Psychiatry (who knows him well). VSS ANxious RRR no mgr CTAB no wcr ABd +BS soft NT ND Ext: no edema 51 yo male with EtOH dependence, here for chest pain and withdrawal from EtOH. Appreciate Psychiatry consult to assess for need for inpatient Psych admission. -if no Psych admission, plan to dc to home tomorrow Documented By: Dana Ramos (Dana Ramos MD)
--- NOTE | 2016-11-30 12:57 | Psychiatric Consultation ---
Consultation Date of Consultation Nov 30, 2016. Identifying Data Tushar Rosales is a 51-year-old male who was admitted medically on 10/23/16 with alcohol withdrawal. We are consulted to evaluate depression and anxiety. Information is gathered from the patient and the EHR and considered to be reliable. Chief Complaint "I was doing OK for a while...". History of Present Illness Tushar Rosales is a 51 yo male, well known to our service, with chronic long standing alcohol dependence, who reports that he had been sober from June 2016 until about 6 weeks ago when he relapsed. He says that he gets to the point when sober that he thinks he can drink without problems, which triggers a relapse. 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 HIs primary stress currently is that he feels he is "at the end of my tether" with his girlfriend of 2 years. They live together, she is an alcoholic, he is reliant upon her for financial support and a place to live. She retired about six weeks ago and since then she has been drinking more heaving, does not leave the house nor take care of herself. He takes care of the house, cooking, laundry and admits that he codependently buys her alcohol. He recognizes that it is a toxic relationship and would like to move out, but until he can find a job, he needs to remain where he is. 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 He was to be discharged today, but says that he asked to remain in the hospital until tomorrow, when he can start his job training. His concern is that he does not want to have to go home and be in the house with his girlfriend, knowing that she will be drinking, and berating him about the need to get a job and pay her back some money that is owed. He denies that he has ever been or ever would be violent with her. 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 His only contact with her here in the hospital has been several phone calls in which she asked him when he was getting out and getting a job. He reports his mood as "frustrated, denies SI/HI. Sleep is chronically disturbed. He has experienced visual distortions during his alcohol withdrawal, but denies overt hallucinations or seizures. He is not currently in alcohol use treatment but says that he has called [facility] where he previously saw Joann iPna, in an attempt to get back into treatment (a requirement to get back into [facility]). Past Psychiatric History Current OP Treatment: no current treatment Prior OP Treatment: psychiatrist, therapist Access to a Gun: No Suicide Attempts: No Past Medical/Surgical History History of Concussion/Seizure: Yes (withdrawal seizures) (1) Alcohol withdrawal Allergies Allergies: Coded Allergies: No Known Allergies (Unverified , 11/23/16) Home Medications Scheduled Cholecalciferol (Vitamin D3), 2,000 INTER.UNIT PO DAILY Cyanocobalamin (Vitamin B12), 1,000 MCG PO DAILY Fluconazole (Diflucan), 1 TAB PO DAILY Folic Acid (Folvite), 1 MG PO DAILY Magnesium Oxide (Mag-Ox), 400 MG PO BID Mirtazapine (Remeron), 15 MG PO HS Multivitamin (Multivitamin), 1 TAB PO DAILY Thiamine Hcl (Vitamin B-1), 100 MG PO BID Trazodone Hcl (Trazodone), 50 MG PO HS Scheduled PRN Lorazepam (Lorazepam), 0.5 MG PO Q8H PRN for Anxiety Tramadol (Ultram), 50 MG PO Q4H PRN for Pain Family History Cancer Diabetes mellitus Lung disease History of Suicide: No History of Substance Abuse: No Psychiatric History: Yes (mother with anxiety, father with depression) Alcohol Use Alcohol Use In Past 12 Months: Yes 12-14 beers daily until admission Smoking Use Smoking Status: Never Smoker Personal History Lives in: [place] Education: started college Work History: Starting new job on Wednesday Relationship History: never Children: none Review of Systems Constitutional: malaise Eyes: denies: no symptoms, as stated in HPI, eye pain, tearing, itching, redness, discharge, double vision, visual changes, blurred vision, photophobia, other ENT: denies: no symptoms reported, see HPI, ear pain, ear discharge, loss of hearing, tinnitus, nasal pain, nasal congestion, rhinorrhea, epistaxis, sore throat, stidor, throat swelling, mouth pain, mouth swelling, dental pain, gum swelling, other Cardiovascular: denies: no symptoms reported, see HPI, chest pain, chest tightness, chest pressure, diaphoresis, palpitations, syncope, other Respiratory: denies: no symptoms reported, see HPI, cough, orthopnea, short of breath, stridor, wheezing, sputum production, cyanosis, NGUYEN, PND, other Gastrointestinal: denies no symptoms reported, denies see HPI, denies abdominal pain, denies constipation, denies diarrhea, denies nausea, denies vomiting, denies other Genitourinary - Male: denies: no symptoms, see HPI, rash, amenorrhea, penile itching, penile discharge, testicular pain, testicular swelling, impotence, other Musculoskeletal: denies no symptoms reported, denies see HPI, denies back pain , denies gout, denies joint pain, denies joint swelling, denies muscle pain, denies muscle stiffness, denies neck pain, denies other Integumentary: denies no symptoms reported, denies see HPI, denies change in color, denies change in hair/nails, denies dryness, denies lesions, denies lumps , denies rash, denies other Neurologic: denies: no symptoms, see HPI, headache, numbness, paresthesias, pre -existing deficit, seizure, tingling, tremors, general weakness, tics, focal weakness, vertigo, lethargy, memory loss, dizziness, other Endocrine: denies: no symptoms, as stated in HPI, cold intolerance, heat intolerance, hair changes, goiter, polydipsia, polyuria, skin changes, other Hematologic / Lymphatic: denies: no symptoms, as stated in HPI, abnormal clotting, adenopathy, anemia, easy bleeding, easy bruising, gums bleeding, petechiae, other Examination Physical Examination As per Dr. Ramos Vital Signs Vital Signs Past 12 Hours Date Time Temp Pulse Resp B/P (MAP) Pulse Ox O2 Delivery O2 Flow Rate FiO2 11/30/16 08:01 Room Air 11/30/16 07:28 36.9 84 16 130/93 (105) 97 Room Air Laboratory Results 11/28/16 06:55 11/28/16 06:55 Test 11/23/16 18:05 11/23/16 23:25 11/24/16 06:47 11/25/16 06:45 Activated Partial Thromboplast Time 26.8 SECONDS (21.0-31.0) Partial Thromboplastin Ratio 1.0 Miscellaneous Test REPORT Miscellaneous Test 2 REPORT Direct Bilirubin 0.5 mg/dl (0-0.2) Thyroid Stimulating Hormone (TSH) 3.740 uIu/ml (0.300-4.500) Ethyl Alcohol mg/dL < 3.0 mg/dl (0-3) Urine Color ORANGE Urine Appearance CLEAR (CLEAR) Urine pH 5.5 (4.5-7.5) Urine Specific Nickerson 1.021 (1.000-1.030) Urine Protein NEG (NEG) Urine Glucose (UA) NEG (NEG) Urine Ketones TRACE (NEG) Urine Occult Blood NEG (NEG) Urine Nitrite POS (NEG) Urine Bilirubin NEG (NEG) Urine Urobilinogen NEG (NEG) Urine Leukocyte Esterase TRACE (NEG) Urine WBC (Auto) 1-5 /hpf (0-5) Urine RBC (Auto) 0-4 /hpf (0-4) Urine Hyaline Casts (Auto) 1-5 /lpf (0-5) Urine Epithelial Cells (Auto) 5-10 /lpf (0-5) Urine Bacteria (Auto) NEG (NEG) Urine Opiates Screen NEG (NEG) Urine Methadone, Qualitative NEG (NEG) Urine Barbiturates NEG (NEG) Urine Phencyclidine (PCP) Level NEG (NEG) Ur Amphetamine/Methamphetamine NEG (NEG) Urine MDE-amphetamine (MDEA) negative Ur Methylenedioxyamphetamine (MDA) negative MDMA (Ecstasy) Screen POS (NEG) Methylenedioxymethamphetamine (MDMA negative Urine Hydroxyalprazolam Confirm NEGATIVE NG/ML (CUTOFF=25) Urine Benzodiazepines Screen POS (NEG) 7-Amino Clonazepam Level NEGATIVE NG/ML (CUTOFF=25) Urine Nordiazepam Confirmation 424 NG/ML (CUTOFF=50) Urine Hydroxyethylflurazepam Level NEGATIVE NG/ML (CUTOFF=50) Urine Lorazepam (GC/MS) NEGATIVE NG/ML (CUTOFF=50) Urine Oxazepam Confirm (GC/MS) NEGATIVE NG/ML (CUTOFF=50) Urine Temazepam Confirmation 457 NG/ML (CUTOFF=50) Urine Hydroxytriazolam Confirmation NEGATIVE NG/ML (CUTOFF=50) Urine Hydroxymidazolam Confirmation NEGATIVE NG/ML (CUTOFF=50) Urine Cocaine Metabolite NEG (NEG) Urine Marijuana (THC) NEG (NEG) Prothrombin Time 11.3 SECONDS (9.0-12.0) Prothromb Time International Ratio 1.1 (0.9-1.1) Magnesium Level 1.9 mg/dl (1.8-2.4) Vitamin B12 Level 681 pg/mL (211-911) Folate > 24.00 ng/mL (>5.38) Uric Acid 5.9 mg/dl (2.6-7.2) Lipase 137 U/L (73-393) Hepatitis A IgM Antibody NON-REACTIVE (NON-REACTIVE) Hepatitis B Surface Antigen NEG (NEG) Hepatitis B Core IgM Antibody NON-REACTIVE (NON-REACTIVE) Hepatitis C Antibody NEG (NEG) Test 11/26/16 06:41 11/28/16 06:55 Immature Granulocyte % (Auto) 0.9 % White Blood Count 5.77 K/uL (4.8-10.8) Red Blood Count 4.82 M/uL (4.7-6.1) 5.06 M/uL (4.7-6.1) Hemoglobin 14.5 g/dL (14.0-18.0) Hematocrit 45.7 % (42-52) Mean Corpuscular Volume 94.8 fL (80-100) 94.1 fL (80-100) Mean Corpuscular Hemoglobin 30.1 pg (25-34) 30.4 pg (25-34) Mean Corpuscular Hemoglobin Concent 31.7 g/dl (32-36) 32.4 g/dl (32-36) Platelet Count 117 K/uL (130-400) Mean Platelet Volume 9.2 fL (7.4-10.4) 9.6 fL (7.4-10.4) Neutrophils (%) (Auto) 52.0 % Lymphocytes (%) (Auto) 24.1 % Monocytes (%) (Auto) 21.1 % Eosinophils (%) (Auto) 1.4 % Basophils (%) (Auto) 0.5 % Neutrophils # (Auto) 3.00 K/uL (1.4-6.5) Lymphocytes # (Auto) 1.39 K/uL (1.2-3.4) Monocytes # (Auto) 1.22 K/uL (0.11-0.59) Eosinophils # (Auto) 0.08 K/uL (0-0.5) Basophils # (Auto) 0.03 K/uL (0-0.2) Immature Granulocyte # (Auto) 0.05 K/uL (0.00-0.02) RDW Standard Deviation 48.9 fL (36.4-46.3) RDW Coefficient of Variation 14.3 % (11.5-14.5) Anion Gap 8.0 mmol/L (3-11) Est Creatinine Clear Calc Drug Dose 84.7 ml/min Estimated GFR () 101.3 Estimated GFR (Non- 87.4 BUN/Creatinine Ratio 9.1 (10-20) Calcium Level 9.3 mg/dl (8.5-10.1) Total Bilirubin 1.1 mg/dl (0.2-1) Aspartate Amino Transf (AST/SGOT) 74 U/L (15-37) Alanine Aminotransferase (ALT/SGPT) 118 U/L (12-78) Alkaline Phosphatase 57 U/L (45-117) Total Protein 8.1 gm/dl (6.4-8.2) Albumin 3.6 gm/dl (3.4-5.0) Globulin 4.5 gm/dl (2.5-4.0) Albumin/Globulin Ratio 0.8 (0.9-2) Mental Examination During interview pt is: alert and oriented Appearance: appropriately groomed (with reddened facial rash) Eye contact is: good Motor behavior is: no abnormal motor movements Speech: normal in rate, rhythm & volume Affect: blunted Mood is: other ("frustrated") Thought process: circumstantial, tangential Thought content: reality based without delusions Suicidal thought are: denied Homicidal thoughts are: denied Hallucinations: denies auditory, denies visual Cognition: other (Remote memory intact, short term memory impaired (gets lost in details of past history, forgetting the question at hand)) Intelligence estimated to be: average Judgement: limited Impression / Recommendations Impression 51 yo male with alcohol dependence and withdrawal. His story is relatively unchanged from previous consults with the exception of admitting that he and his girlfriend are incompatible, and likely need to go their separate ways. That having been said, he is dependent on her for financial support and housing for the time being. He is formulating a plan that includes moving to the local homeless assisted if needed while he works his new job and save to get an apt. I have recommended that he go to inpatient rehab since he has been unable to maintain sobriety for more than a few months at a time for the last 3-5 years, but he refuses. He wants to return to [facility] and his old therapist Joann Pina. I have suggested that he immediately begin to attend 90 AA meetings in 90 days , which he is disinclined to do, not liking the 12 step approach. I have also shared with him that we cannot effectively diagnose or treat any underlying mental health conditions until such time as he has maintained his sobriety for 6 months or more. Having seen this gentleman multiple times over the last several years, he appears to be cognitively declined, losing track of the conversation, and glibly telling stories from his remote past. His liver enzymes are trending down, and last US revealed a fatty liver, but his alcoholism is taking its toll on his physical condition. At best, I think he is in the third of the six stages of change in addiction recovery, and not yet really in tune with the alcoholic within. He operates in crisis mode, only jumping into treatment when there is a crisis at hand, and quickly dropping out , when he needs to be in maintenance treatment. I have no recommendations for medications at this time. He says that he is prepared to discharge tomorrow. Risk Factors Assessment Male: Yes : Yes /single/: Yes Higher / Fall in social status: No Access to guns: No Health problems: Yes Mental Health Diagnoses: No Substance use disorders: Yes Previous attempt: No Smoker: No Protective Factors Assessment Zoroastrianism beliefs: No : No Responsible for young children: No Employed: No Stable relationships: No Supportive family: No Recommendations 1. Substance induced mood disorder- see above discussion
[2016-11-30 15:42] VITALS: BP 129/89; PULSE 79; TEMP 36.7; O2SAT 98
[2016-11-30] MEDS: MIRTAZAPINE TAB 15 MG TAB PO SCH (21:11)
[2016-11-30] MEDS: HYDROCORTISONE 1% CR 30 GM TUBE EXT SCH (21:12)
[2016-11-30 23:21] VITALS: BP 118/84; PULSE 78; TEMP 36.6; O2SAT 96
[2016-12-01] MEDS: LORAZEPAM 0.5 MG TAB PO PRN (05:03)
[2016-12-01 07:31] VITALS: BP 126/84; PULSE 69; TEMP 36.9; O2SAT 100
[2016-12-01] MEDS ORDERED: HYDCR1CL EXT (08:05)
[2016-12-01] MEDS: HYDROCORTISONE 1% CR 30 GM TUBE EXT SCH (08:44)
--- NOTE | 2016-12-01 08:58 | Discharge Instructions ---
Discharge Instructions Date of Service Dec 01, 2016. Admission Reason for Admission: Alchohol Withdrawal Discharge Discharge Diagnosis / Problem: Alcohol withdrawal Discharge Goals Goal(s): Decrease discomfort, Improve function, Diagnostic testing, Therapeutic intervention Activity Recommendations Activity Limitations: resume your previous activity Lifting Limitations: none Exercise/Sports Limitations: as tolerated May Resume Sexual Activity: when tolerated Shower/Bathe: no limitations Driving or Machine Use: no driving while on Ativan . Instructions / Follow-Up Instructions / Follow-Up You were admitted to the hospital presenting with alcohol withdrawal. You were treated with a taper of gabapentin as well as Ativan as needed. As you are no longer actively withdrawing, you are now medically stable for discharge to home. Your liver enzymes were elevated during your stay, likely due to your alcohol use. You will need to have a follow up liver profile blood test in about 1 week to see if they have returned to normal. Medications: *You have been given a short course of Ativan to use as needed for anxiety. You may take Ativan 0.5 mg by mouth up to every eight hours as needed for anxiety. Do not take more than prescribed. Only use when necessary. *You may continue to use the hydrocortisone cream on your face and chest twice a day until resolution of the rash. It is recommended that you also use a dandruff shampoo on your scalp and chest 3 times a week. *Continue your other home medications as prescribed. Follow up: *You have been scheduled to follow up with TAMARA Elkins, on , at 9:10 am. *You will need a follow up liver profile blood test in 1 week to check your liver enzymes. *You should also schedule an appointment with a counselor as soon as possible. Current Hospital Diet Patient's current hospital diet: Regular Diet Discharge Diet Recommended Diet: Regular Diet Pending Studies Studies pending at discharge: no Medical Emergencies . Who to Call and When: Medical Emergencies: If at any time you feel your situation is an emergency, please call 911 immediately. . Non-Emergent Contact Non-Emergency issues call your: Primary Care Provider Call Non-Emergent contact if: you have a fever, you have any medication questions . Past History Medical & Surgical History: (1) Alcohol withdrawal . "Provider Documentation" section prepared by Margaret Guzman. . VTE Core Measure Inpt VTE Proph given/why not?: Unfractionated heparin SQ, SCD's [place] Drug Monitoring Program Search Results: patient reviewed within database, no issues identified
[2016-12-01 13:08] VITALS: BP 126/84; PULSE 69; TEMP 36.9; O2SAT 100
--- NOTE | 2016-12-01 15:50 | Discharge Summary ---
Discharge Summary Date of Service Dec 01, 2016. (Margaret Guzman .BRI) Discharge Summary Admission Date: Nov 25, 2016 at 09:45 Discharge Date: Dec 01, 2016 Discharge Disposition: Home Principal Diagnosis: Alcohol withdrawal Problems/Secondary Diagnoses: Seborrheic dermatitis Transaminitis Alcoholism Chronic thrombocytopenia Consultations: Psych--Shakira Zhu (Margaret Guzman .BRI) Medication Reconciliation New Medications: Hydrocortisone 1% (Hydrocortisone 1%) 90 Appln/30 Gm Cr 1 APPLN EXT BID for 30 Days, #1 TUBE Apply to rash on face twice a day until resolution. Patient may use tube from hospital. Lorazepam (Lorazepam) 0.5 Mg Tab 0.5 MG PO Q8H PRN for Anxiety, #12 TAB 0 Refills Continued Medications: Cholecalciferol (Vitamin D3) 2,000 Unit Cap 2000 INTER.UNIT PO DAILY, CAP Cyanocobalamin (Vitamin B12) 1,000 Mcg Tab 1000 MCG PO DAILY Folic Acid (Folvite) 1 Mg Tab 1 MG PO DAILY, #90 TAB Magnesium Oxide (Mag-Ox) 400 Mg Tab 400 MG PO BID, #60 TAB 2 Refills Mirtazapine (Remeron) 15 Mg Tab 15 MG PO HS, #30 Multivitamin (Multivitamin) Tab 1 TAB PO DAILY Thiamine Hcl (Vitamin B-1) 100 Mg Tab 100 MG PO BID, #60 TAB 3 Refills Trazodone Hcl (Trazodone) 50 Mg Tab 50 MG PO HS, TAB Discontinued Medications: Tramadol (Ultram) 50 Mg Tab 50 MG PO Q4H PRN for Pain, #30 TAB Discharge Exam Patient states he is feeling well. He still complains of a mild tremor but states this is improving. He also complains of numbness/tingling in his right 4th and 5th digit which remains unchanged. He denies any SOB or palpitations today, although he still sometimes gets dizzy. The patient denies fevers, chills, sweats, chest pain, palpitations, claudication, cough, wheezing, shortness of breath, nausea, vomiting, abdominal pain, dysuria, hematuria, urinary retention, paralysis, weakness, numbness and tingling. Review of Systems: Constitutional: No fever, No chills, No sweats Eyes: No worsening of vision, No eye pain, No diplopia ENT: No hearing loss, No sore throat, No trouble swallowing Respiratory: No cough, No wheezing, No shortness of breath Cardiovascular: No chest pain, No claudication, No palpitations Abdomen: No pain, No nausea, No vomiting Musculoskeletal: No joint pain, No muscle pain, No calf pain Genitourinary - Male: No hematuria, No dysuria, No urinary retention Neurologic: + numbness/tingling, No paralysis, No weakness Integumentary: No rash, No itch, No color change Physical Exam: General Appearance: WD/WN, no apparent distress, + obese Eyes: normal inspection, PERRL, EOMI ENT: normal ENT inspection, hearing grossly normal, pharynx normal Neck: supple, no JVD, trachea midline Respiratory/Chest: lungs clear, normal breath sounds, no respiratory distress Cardiovascular: regular rate, rhythm, no gallop, no murmur Abdomen / GI: normal bowel sounds, non tender, soft Extremities: normal inspection, no calf tenderness, no pedal edema Neurologic/Psychiatric: alert, normal mood/affect, oriented x 3 Skin: normal color, warm/dry, + rash (erythematous dry rash on face and chest) (Margaret Guzman ., PARosC) Hospital Course 51 y/o male with a history of ETOH abuse presenting with alcohol withdrawal. ETOH withdrawal, drinks 10-12 beers/day - last drink 11/23 at 0400--stable/ resolved -Admitted to telemetry, transferred to med/surg -No seizure activity -Taking Ativan twice a day moreso for anxiety than withdrawal. D/C AWSS protocol - Gabapentin taper complete - Ativan 0.5 mg po Q8H PRN. Given short course at discharge Seborrheic dermatitis--stable -D/C Diflucan -Apply hydrocortisone 1% cream external BID -May apply dandruff shampoo to scalp/chest 3x/week Anxiety/depression--currently untreated, would likely benefit from maintenance medication but will need to be re-evaluated once sober for 6 months -Psych consulted, appreciate recs: does not meet inpatient criteria. Recommend maintaining outpatient psych/substance abuse treatment -D/C tramadol Transaminitis--improving - Continues to trend down but still mildly elevated - Pt with h/o fatty liver -F/u liver profile in 1 week Chronic Thrombocytopenia--stable - Likely 2/2 ETOH intake - continue to hold Heparin at this time - currently normalized - PLT remain WNL DVT prophylaxis -SCDs Code Status -Level I, FULL RESUSCITATION STATUS Dispo -Scheduled for PCP f/u in 2 days -Pt is setting up outpatient treatment program and will try to return [facility] as home environment not conducive to sobriety Total Time Spent: Greater than 30 minutes This includes examination of the patient, discharge planning, medication reconciliation, and communication with other providers. (Margaret Guzman ., BRI) Discharge Instructions Please refer to the electronic Patient Visit Report (Discharge Instructions) for additional information. (Margaret Guzman PA-C) Additional Copies To Nathaly Beatty CRNP Reviewed: Pt Seen/Exam by Me (Dana Ramos MD) History Physician Luggage Attendant Supervision Note: I interviewed and examined the patient. Discussed with JASMINA Guzman and agree with findings and plan as documented in the note. Any exceptions or clarifications are listed here: Pt ready for discharge. Has been contemplating going to AA meetings now after discharge. has a call into [facility] out[facility] EtOH counseling to set up intake appt. VSS ANxious RRR no mgr CTAB no wcr ABd +BS soft NT ND Ext: no edema Skin: face and chest with diffuse pink macular rash with greasy-appearing flaky skin 51 yo male with EtOH dependence, here for anxiety, nausea, SOB all related to withdrawal from EtOH. All somatic complaints resolved except with some paresthesias in finger likely related to CTS and cubital tunnel syndrome, other symptoms related to anxiety. Was detoxified from EtOH while here and no further evidence of withdrawal. Continue ativan prn anxiety or withdrawal symptoms. To set up outpt EtOH rehab counseling and attend AA mtgs. Appreciate Psychiatry consult to assess for need for inpatient Psych admission- no need for inpatient, no SI/HI -Seborrheic derm-advised Anti-dandruff shampoo 3x/week and HC cream bid Alcoholic hepatitis-improved while here. Also with h/o fatty liver on US -continue sobriety from EtOH -follow LFTs as outpatient and monitor for development of cirrhosis Documented By: Dana Ramos (Dana Ramos MD)
[2016-12-26] MEDS ORDERED: LORA-741 PO (10:39)
[2017-02-12] MEDS ORDERED: MAGN400T6 PO (09:06)
[2017-02-12] MEDS ORDERED: LPR25 PO (09:06)
[2017-02-12] MEDS ORDERED: FOLI1TAB7 PO (09:06)
[2017-02-12] MEDS ORDERED: MCRK20 PO (09:06)
[2017-02-12] MEDS ORDERED: NALT50TA16 PO (09:06)
[2017-02-12] MEDS ORDERED: THIA100T11 PO (09:06)
[2017-02-12] MEDS ORDERED: ATV2 PO (09:52)
[2017-02-12] MEDS ORDERED: DISU1TAB PO (09:59)
== END 2016-12-01 14:20 | disposition home or self-care (01) | DRG 897 ==
LOC: C.EDB 17:32 → C.2T 20:58 → ENRESERV 21:09 → OBSVTOIN 11-25 09:45 → ENRESERV 11-25 09:51 → C.MS4W 11-25 11:27
PROVIDERS: ADMIT Family Medicine; ATTEND Family Medicine
DX: F10.239 Alcohol dependence with withdrawal, unspecified (principal); L21.9 Seborrheic dermatitis, unspecified; B35.9 Dermatophytosis, unspecified; R74.0 Nonspecific elevation of levels of transaminase and lactic acid dehydrogenase [LDH]; F10.20 Alcohol dependence, uncomplicated; D69.6 Thrombocytopenia, unspecified; F41.9 Anxiety disorder, unspecified; F32.9 Major depressive disorder, single episode, unspecified; Z83.3 Family history of diabetes mellitus

== ENCOUNTER 2016-12-23 16:39 | Inpatient (IN) | payer OTHER ==
[~2016-12-23] VITALS: Ht 162.6 cm; Wt 77.4 kg
[~2016-12-23 16:39] MED LIST changes: +ATV5 PO; -CLC100 PO; +HYDCR1CL EXT; -LBR25 PO; +MIRT15TA3 PO; -TRAM-10 PO; -TRIA1SPR4
[2016-12-23] MEDS ORDERED: DIAZEPAM INJ 5 MG/ML 2 ML CARP IV STA ×3 (17:19→20:39)
[2016-12-23] MEDS ORDERED: PANTOprazole INJ 40 MG in SYRINGE 0 ML IV ONE (17:30)
[2016-12-23 17:35] LABS: BASO % 0.4 %; BASO ABS # 0.02 K/uL (0-0.2); COMPLETE YES; EOS % 0.2 %; HEMATOCRIT 45.6 % (42-52); IG% 0.2 %; LYMPH % 20.6 %; LYMPH ABS # 1.16 K/uL (1.2-3.4); MEAN CORPUSCULAR HEMOGLOBIN 31.1 pg (25-34); MEAN CORPUSCULAR HGB CONC 34.2 g/dl (32-36); MONO % 11.2 %; NEUT % 67.4 %; PLATELET COUNT 111 K/uL (130-400); RED BLOOD COUNT 5.01 M/uL (4.7-6.1); WHITE BLOOD COUNT 5.63 K/uL (4.8-10.8)
--- NOTE | 2016-12-23 17:36 | EMERGENCY ROOM VISIT NOTE ---
History Report prepared by Kandi: Dieudonne Valencia Under the Supervision of: Dr. Nishi Johnson D.O. First contact with patient: 17:07 Chief Complaint: CHEST PAIN Stated Complaint: CHEST PAIN, TIGHTNESS, SOB Nursing Triage Summary: pt reports chest pain started at 1300 today pt reports radiation to back with nause and sob , pt has very strong odor of ETOH reports last drink at 0930 today History of Present Illness The patient is a 51 year old male who presents to the Emergency Room with complaints of intermittent chest pain beginning 4 hours ago. The patient states that he was laying in bed and could not focus. He reports that he then experienced shortness of breath, vision changes, chills, diaphoresis, vomiting, and diarrhea. The patient describes his symptoms as if it was an anxiety attack , and he believes it is due to alcohol. He notes that alcohol makes his symptoms worse. The patient states that in the mornings he gets nauseous and dry heaves. He notes that he has been trying to quit for the past two years, but he has consumed 6-8 beers every day for the last three weeks. The patient states that he has a history of seizures from alcohol withdraw 3 years ago, and he went to rehabilitation. He reports that his longest sober period was 3 months ago. The patient states that he has a history of GERD, but these symptoms are not like it. He reports that he does not take a daily acid prevention coordinator. The patient notes that he has a history of a PE in 2011 due to gout, and he was not put on blood thinners. He denies a history of heart disease and smoking. The patient denies fever, recent illness, edema to the legs, hematochezia, melena, and urinary symptoms. Source of History: patient Onset: 4 hours ago Position: chest Timing: intermittent Associated Symptoms: + chills, + diaphoresis, + SOB, + vomiting, + diarrhea , No fevers, No melena, No hematochezia, No urinary symptoms Note: Associated symptoms: vision changes Denies: recent illness and edema to the legs Review of Systems See HPI for pertinent positives & negatives. A total of 10 systems reviewed and were otherwise negative. Past Medical & Surgical Medical Problems: (1) Alcohol overdose (2) Alcohol withdrawal (3) Alcohol withdrawal (4) Alcoholism (5) Compression fracture of body of thoracic vertebra (6) Compression fracture of L1 lumbar vertebra (7) Hypokalemia (8) Hypomagnesemia (9) Seizure-like activity Family History Cancer Diabetes mellitus Lung disease Social History Smoking Status: Never Smoker Alcohol Use: heavy Drug Use: none Marital Status: in relationship Housing Status: lives with significant other Current/Historical Medications Scheduled Cholecalciferol (Vitamin D3), 2,000 INTER.UNIT PO DAILY Cyanocobalamin (Vitamin B12), 1,000 MCG PO DAILY Folic Acid (Folvite), 1 MG PO DAILY Magnesium Oxide (Mag-Ox), 400 MG PO BID Mirtazapine (Remeron), 15 MG PO HS Multivitamin (Multivitamin), 1 TAB PO DAILY Thiamine Hcl (Vitamin B-1), 100 MG PO BID Trazodone Hcl (Trazodone), 50 MG PO HS Allergies Coded Allergies: No Known Allergies (Unverified , 12/23/16) Physical Exam Vital Signs Date Time Temp Pulse Resp B/P (MAP) Pulse Ox O2 Delivery O2 Flow Rate FiO2 12/24/16 02:21 36.9 12/24/16 01:09 89 12/24/16 00:00 94 22 145/108 96 Room Air 12/23/16 22:00 98 20 145/102 96 Room Air 12/23/16 21:17 99 12/23/16 19:56 107 22 139/100 96 Room Air 12/23/16 17:17 112 12/23/16 16:48 36.6 109 18 151/88 96 Room Air Physical Exam GENERAL: alert, well appearing, well nourished, no distress, non-toxic EYE EXAM: normal conjunctiva, PERRL and EOM's grossly intact OROPHARYNX: no exudate, no erythema, lips, buccal mucosa, and tongue normal and mucous membranes are moist NECK: supple, no nuchal rigidity, no adenopathy, non-tender LUNGS: Clear to auscultation. Normal chest wall mechanics HEART: no murmurs, S1 normal and S2 normal ABDOMEN: abdomen soft, non-tender, normo-active bowel sounds, no masses, no rebound or guarding. BACK: Back is symmetrical on inspection and there is no deformity, no midline tenderness, no CVA tenderness. SKIN: Mild patchy psoriasis and no bruising UPPER EXTREMITIES: upper extremities are grossly normal. LOWER EXTREMITIES: No pitting edema. NEURO EXAM: Normal sensorium, no weakness of arms, no weakness of legs. Fine resting tremor, very anxious Medical Decision & Procedures ER Provider Diagnostic Interpretation: Radiology results have been interpreted by the radiologist and reviewed by me. CHEST ONE VIEW PORTABLE CLINICAL HISTORY: 51 years-old Male presenting with chest pain, EtOH withdrawal, shortness of breath. TECHNIQUE: Portable upright AP view of the chest was obtained. COMPARISON: 11/23/2016. FINDINGS: Cardiomediastinal silhouette normal. Lungs and pleural spaces clear. Osseous structures and upper abdomen normal. IMPRESSION: 1. No acute cardiopulmonary disease. Electronically signed by: Ben Garcia M.D. 12/23/2016 6:08 PM Dictated Date/Time: 12/23/2016 6:06 PM Laboratory Results 12/23/16 17:15 Red Blood Count 5.01, Mean Corpuscular Volume 91.0, Mean Corpuscular Hemoglobin 31.1, Mean Corpuscular Hemoglobin Concent 34.2, Mean Platelet Volume 10.0, Neutrophils (%) (Auto) 67.4, Lymphocytes (%) (Auto) 20.6, Monocytes (%) (Auto) 11.2, Eosinophils (%) (Auto) 0.2, Basophils (%) (Auto) 0.4, Neutrophils # (Auto ) 3.80, Lymphocytes # (Auto) 1.16, Monocytes # (Auto) 0.63, Eosinophils # (Auto ) 0.01, Basophils # (Auto) 0.02 12/23/16 17:15 Test 12/23/16 17:15 12/23/16 17:20 12/23/16 17:57 12/23/16 21:00 White Blood Count 5.63 K/uL (4.8-10.8) Red Blood Count 5.01 M/uL (4.7-6.1) Hemoglobin 15.6 g/dL (14.0-18.0) Hematocrit 45.6 % (42-52) Mean Corpuscular Volume 91.0 fL (80-100) Mean Corpuscular Hemoglobin 31.1 pg (25-34) Mean Corpuscular Hemoglobin Concent 34.2 g/dl (32-36) Platelet Count 111 K/uL (130-400) Mean Platelet Volume 10.0 fL (7.4-10.4) Neutrophils (%) (Auto) 67.4 % Lymphocytes (%) (Auto) 20.6 % Monocytes (%) (Auto) 11.2 % Eosinophils (%) (Auto) 0.2 % Basophils (%) (Auto) 0.4 % Neutrophils # (Auto) 3.80 K/uL (1.4-6.5) Lymphocytes # (Auto) 1.16 K/uL (1.2-3.4) Monocytes # (Auto) 0.63 K/uL (0.11-0.59) Eosinophils # (Auto) 0.01 K/uL (0-0.5) Basophils # (Auto) 0.02 K/uL (0-0.2) RDW Standard Deviation 46.2 fL (36.4-46.3) RDW Coefficient of Variation 13.9 % (11.5-14.5) Immature Granulocyte % (Auto) 0.2 % Immature Granulocyte # (Auto) 0.01 K/uL (0.00-0.02) Prothrombin Time 11.0 SECONDS (9.0-12.0) Prothromb Time International Ratio 1.0 (0.9-1.1) D-Dimer 270 ug/L FEU (0-500) Anion Gap 14.0 mmol/L (3-11) Est Creatinine Clear Calc Drug Dose 111.0 ml/min Estimated GFR () 123.3 Estimated GFR (Non- 106.4 BUN/Creatinine Ratio 9.7 (10-20) Calcium Level 9.1 mg/dl (8.5-10.1) Magnesium Level 1.6 mg/dl (1.8-2.4) Total Bilirubin 1.0 mg/dl (0.2-1) Aspartate Amino Transf (AST/SGOT) 74 U/L (15-37) Alanine Aminotransferase (ALT/SGPT) 77 U/L (12-78) Alkaline Phosphatase 56 U/L (45-117) Pro-B-Type Natriuretic Peptide 15 pg/ml (0-900) Total Protein 8.2 gm/dl (6.4-8.2) Albumin 4.0 gm/dl (3.4-5.0) Globulin 4.2 gm/dl (2.5-4.0) Albumin/Globulin Ratio 1.0 (0.9-2) Lipase 148 U/L (73-393) Urine Opiates Screen NEG (NEG) Urine Methadone, Qualitative NEG (NEG) Urine Barbiturates NEG (NEG) Urine Phencyclidine (PCP) Level NEG (NEG) Ur Amphetamine/Methamphetamine NEG (NEG) MDMA (Ecstasy) Screen POS (NEG) Urine Benzodiazepines Screen NEG (NEG) Urine Cocaine Metabolite NEG (NEG) Urine Marijuana (THC) NEG (NEG) Ethyl Alcohol mg/dL < 3.0 mg/dl (0-3) Troponin I < 0.015 ng/ml (0-0.045) Laboratory results per my review. Medications Administered Medications (Trade) Dose Ordered Sig/Dyan Route Start Time Stop Time Status Last Admin Dose Admin Diazepam (Valium Inj) 5 mg NOW STAT IV 12/23/16 17:19 12/23/16 17:21 DC 12/23/16 17:58 5 MG Pantoprazole Sodium 40 mg/ Syringe 10 ml @ 5 mls/min NOW ONCE IV 12/23/16 17:30 12/23/16 17:31 DC 12/23/16 18:09 5 MLS/MIN Sodium Chloride 1,000 ml @ 999 mls/hr Q1H1M STAT IV 12/23/16 19:06 12/23/16 20:06 DC 12/23/16 19:06 999 MLS/HR Diazepam (Valium Inj) 10 mg NOW STAT IV 12/23/16 19:07 12/23/16 19:08 DC 12/23/16 19:34 10 MG Diazepam (Valium Inj) 10 mg NOW STAT IV 12/23/16 20:39 12/23/16 20:40 DC 12/23/16 21:04 10 MG Multivitamins 10 ml/Thiamine HCl 100 mg/Folic Acid 1 mg/Sodium Chloride 1,011.2 ml @ 500 mls/ hr Q2H2M ONCE IV 12/23/16 21:00 12/23/16 23:01 DC 12/23/16 21:25 500 MLS/HR Al Hydroxide/Mg Hydroxide (Maalox Susp) 30 ml NOW STAT PO 12/23/16 21:55 12/23/16 21:56 DC 12/23/16 22:20 30 ML Magnesium Sulfate 1 gm/Prmx 100 ml @ 100 mls/hr Q1H IV 12/24/16 00:25 12/24/16 02:24 DC 12/24/16 01:25 100 MLS/HR ECG Indication: chest pain Rate (beats per minute): 107 Rhythm: sinus tachycardia Findings: no acute ischemic change, other (Normal axis, normal interval) ED Course 171: The patient was evaluated in room C08. A complete history and physical exam was performed. 171: Ordered Valium Inj 5 mg IV 1730: Ordered Pantoprazole Sodium 40 mg/Syringe 10 ml @ 5 mls/min 190: I reevaluated the patient, and there is no recurrent chest pain. The patient still feel shaky. 1905: Ordered Sodium Chloride 1000 ml @ 999 mls/hr IV 1906: Ordered Valium Inj 10 mg IV 2020: Upon reevaluation, the patient doesn't feel better and still shaking and tachycardic. I connected him back to the monitor. I discussed the findings and the treatment plan with the patient. He expresses agreement and understanding. 2038: Ordered Valium Inj 10 IV 2100: Ordered Multivitamins 10 ml/Thiamine HCl 100 mg/Folic Acid 1 mg/Sodium Chloride 1011.2 ml @ 500 mls/hr IV 2154: Ordered Maalox Susp 30 ml PO 222: I spoke with Dr. Carr of the [facility] Hospitalist Service. The patient will be evaluated for further management. Medical Decision Differential diagnoses includes but is not limited to acute coronary syndrome, myocardial infarction, pericarditis, pulmonary embolus, aortic dissection, pneumonia, pneumothorax, musculoskeletal, shingles, esophageal. Medication Reconciliation: I attest that I have personally reviewed the patient' s current medication list. Blood pressure screening: Patient was found to have a slightly elevated blood pressure due to circumstances. I do not believe that the patient requires hypertension monitoring. Doubt patient's chest pain related to cardiac or pulmonary pathology. More likely related to anxiety from alcohol use and withdrawal, or alcohol-related gastritis/esophagitis. Doubt GI bleed, Boerhaave's, perforation. Patient with negative troponins 2. Doubt dissection, aneurysm, tamponade, no evidence of effusion or infiltrate or pneumothorax. Patient received multiple doses of IV Valium here with persistent tachycardia and complaints of "not feeling well". In light of this as well as prior history of alcohol withdrawal related seizures , patient admitted for continued monitoring and treatment. No evidence of DTs currently in no seizures while in the emergency department. Consults Time Called: 2208 Consulting Physician: Dr. Carr, [facility] Hospitalist Returned Call: [phone] Carr of the [facility] Hospitalist Service. The patient will be evaluated for further management. Impression Primary Impression: Alcohol withdrawal Additional Impressions: Dehydration Anxiety Chest pain Scribe Attestation The scribe's documentation has been prepared under my direction and personally reviewed by me in its entirety. I confirm that the note above accurately reflects all work, treatment, procedures, and medical decision making performed by me. Departure Information Dispostion Being Evaluated By Hospitalist Referrals No Doctor, Assigned (PCP) Patient Instructions My [facility] Problem Qualifiers Primary Impression: Alcohol withdrawal Complication of substance-induced condition: uncomplicated Qualified Codes: F10.230 - Alcohol dependence with withdrawal, uncomplicated Additional Impressions: Chest pain Chest pain type: unspecified Qualified Codes: R07.9 - Chest pain, unspecified
[2016-12-23 17:53] LABS: ALT/SGPT 77 U/L (12-78); BLOOD UREA NITROGEN 7 mg/dl (7-18); BUN/CREATININE RATIO 9.7 (10-20); CALCIUM 9.1 mg/dl (8.5-10.1); CARBON DIOXIDE 19 mmol/L (21-32); CHLORIDE 107 mmol/L (98-107); CREATININE 0.76 mg/dl (0.60-1.40); GLUCOSE 79 mg/dl (70-99); MAGNESIUM 1.6 mg/dl (1.8-2.4); POTASSIUM 3.7 mmol/L (3.5-5.1); SODIUM 140 mmol/L (136-145)
[2016-12-23 17:58] LABS: ALKALINE PHOSPHATASE 56 U/L (45-117); AST/SGOT 74 U/L (15-37)
--- NOTE | 2016-12-23 18:10 | DIAGNOSTIC IMAGING REPORT ---
CHEST ONE VIEW PORTABLE CLINICAL HISTORY: 51 years-old Male presenting with chest pain, EtOH withdrawal, shortness of breath. TECHNIQUE: Portable upright AP view of the chest was obtained. COMPARISON: 11/23/2016. FINDINGS: Cardiomediastinal silhouette normal. Lungs and pleural spaces clear. Osseous structures and upper abdomen normal. IMPRESSION: 1. No acute cardiopulmonary disease. Electronically signed by: Ben Garcia M.D. 12/23/2016 6:08 PM Dictated Date/Time: 12/23/2016 6:06 PM
[2016-12-23 18:44] LABS: BENZODIAZEPINE, URINE NEG (NEG); COCAINE,URINE NEG (NEG); PHENCYCLIDINE, URINE NEG (NEG)
[2016-12-23] MEDS ORDERED: SODIUM CHLORIDE 0.9% 1000ML 1,000 ML IV STA (19:06)
[2016-12-23] MEDS ORDERED: MULTI-VITAMIN INFUSION INJ 10 ML, THIAMINE HCL INJ 100 MG, FoLIC ACID INJ 1 MG in SODIU... IV ONE (21:00)
[2016-12-23] MEDS ORDERED: ALUMINUM/MAGNESIUM SUSP 30 ML UDC PO STA (21:55)
[2016-12-24] MEDS: MAGNESIUM SULFATE 1GM / D5W 1 GM in PREMIXED IN D5W 100 ML IV SCH ×2 (00:48→01:25)
[2016-12-24] MEDS ORDERED: ACETAMINOPHEN 325 MG TAB PO PRN (01:00)
[2016-12-24] MEDS ORDERED: MAGNESIUM HYDROXIDE SUSP 30 ML UDC PO PRN (01:00)
[2016-12-24] MEDS ORDERED: POLYETHYLENE (MIRALAX) 17 GM PACK PO PRN (01:00)
[2016-12-24] MEDS ORDERED: LORAZEPAM 1 MG TAB PO PRN ×2 (01:00→13:30)
[2016-12-24] MEDS ORDERED: ONDANSETRON INJ 2 MG/ML 2 ML VIAL IV PRN (01:00)
[2016-12-24 03:15] VITALS: BP 151/92; PULSE 85; TEMP 36.7; O2SAT 97; Ht 162.6 cm; Wt 77.4 kg
[2016-12-24] MEDS ORDERED: GABAPENTIN 600 MG TAB PO STA (03:19)
[2016-12-24] MEDS ORDERED: MULTI-VITAMIN INFUSION INJ 10 ML, THIAMINE HCL INJ 100 MG, FoLIC ACID INJ 1 MG in SODIU... IV ONE (03:30)
[2016-12-24 06:40] LABS: HEMATOCRIT 41.3 % (42-52); MEAN CORPUSCULAR HEMOGLOBIN 30.5 pg (25-34); MEAN CORPUSCULAR HGB CONC 33.2 g/dl (32-36); MEAN PLATELET VOLUME 9.7 fL (7.4-10.4); PLATELET COUNT 101 K/uL (130-400); RED BLOOD COUNT 4.49 M/uL (4.7-6.1); WHITE BLOOD COUNT 7.04 K/uL (4.8-10.8)
[2016-12-24 07:15] LABS: BLOOD UREA NITROGEN 7 mg/dl (7-18); BUN/CREATININE RATIO 9.6 (10-20); CARBON DIOXIDE 24 mmol/L (21-32); CHLORIDE 108 mmol/L (98-107); CREATININE 0.71 mg/dl (0.60-1.40); GLUCOSE 87 mg/dl (70-99); POTASSIUM 3.1 mmol/L (3.5-5.1); SODIUM 141 mmol/L (136-145)
[2016-12-24 07:58] VITALS: BP 131/85; PULSE 82; TEMP 36.9; O2SAT 96
[2016-12-24] MEDS: GABAPENTIN 600MG Q6H DOSE PO SCH ×2 (07:58→17:01)
[2016-12-24] MEDS: THIAMINE HCL 100 MG TAB PO SCH ×2 (07:58→20:42)
[2016-12-24] MEDS: MAGNESIUM OXIDE 400 MG TAB PO SCH ×2 (07:59→20:42)
--- NOTE | 2016-12-24 09:11 | History and Physical ---
History & Physical Date & Time of Service: Dec 24, 2016 at 0200 Chief Complaint: Alcohol Withdrawal Primary Care Physician: No Doctor, Assigned History of Present Illness Source: patient 51-year-old male with past medical history of chronic alcohol abuse presented to the ER with complaints of chest pain which started about 4 hours ago. He states that it was associated with shortness of breath, chills, vomiting and diarrhea. He has a chronic history of alcohol abuse and consumes about 6-8 beers everyday and has a history of seizures from alcohol withdrawal. He has had several unsuccessful attempts at both inpatient and outpatient rehabilitation. Denies any fevers or chills, coughing or abdominal pain. Past Medical/Surgical History Medical Problems: (1) Alcohol overdose Status: Resolved (2) Alcohol withdrawal Status: Resolved (3) Alcoholism Status: Chronic (4) Compression fracture of body of thoracic vertebra Status: Resolved (5) Compression fracture of L1 lumbar vertebra Status: Resolved (6) Hypokalemia Status: Resolved (7) Hypomagnesemia Status: Resolved Family History Cancer Diabetes mellitus Lung disease Social History Smoking Status: Never Smoker Drug Use: none Marital Status: in relationship Multi-Drug Resistant Organisms History of MDRO: No Allergies Coded Allergies: No Known Allergies (Unverified , 12/23/16) Home Medications Scheduled Cholecalciferol (Vitamin D3), 2,000 INTER.UNIT PO DAILY Cyanocobalamin (Vitamin B12), 1,000 MCG PO DAILY Folic Acid (Folvite), 1 MG PO DAILY Magnesium Oxide (Mag-Ox), 400 MG PO BID Mirtazapine (Remeron), 15 MG PO HS Multivitamin (Multivitamin), 1 TAB PO DAILY Thiamine Hcl (Vitamin B-1), 100 MG PO BID Trazodone Hcl (Trazodone), 50 MG PO HS Scheduled PRN Lorazepam (Ativan), 0.5 MG PO Q12 PRN for Anxiety/Agitation Review of Systems Constitutional: No fever, No chills Eyes: No worsening of vision ENT: No hearing loss Respiratory: + shortness of breath, No cough, No sputum Cardiovascular: + chest pain Abdomen: + nausea, + vomiting, No pain Musculoskeletal: No joint pain Genitourinary - Male: No hematuria, No dysuria Neurologic: No memory loss, No paralysis, No numbness/tingling Psychiatric: No depression symptoms Physical Exam Vital Signs Date Time Temp Pulse Resp B/P (MAP) Pulse Ox O2 Delivery O2 Flow Rate FiO2 12/24/16 08:00 Room Air 12/24/16 07:58 36.9 82 18 131/85 (100) 96 Room Air 12/24/16 04:00 Room Air 12/24/16 03:15 36.7 85 18 151/92 97 Room Air 12/24/16 02:55 89 20 140/88 96 Room Air 12/24/16 02:21 36.9 12/24/16 02:00 102 20 137/93 97 Room Air 12/24/16 01:09 89 12/24/16 00:00 94 22 145/108 96 Room Air 12/23/16 22:00 98 20 145/102 96 Room Air 12/23/16 21:17 99 12/23/16 19:56 107 22 139/100 96 Room Air 12/23/16 17:17 112 12/23/16 16:48 36.6 109 18 151/88 96 Room Air General Appearance: WD/WN, no apparent distress Head: normocephalic Eyes: normal inspection ENT: normal ENT inspection, hearing grossly normal Neck: supple Respiratory/Chest: chest non-tender, lungs clear, normal breath sounds Cardiovascular: regular rate, rhythm Abdomen/GI: normal bowel sounds, non tender, soft Extremities/Musculoskelatal: normal inspection Neurologic/Psych: alert, normal mood/affect, oriented x 3 Skin: normal color Diagnostics Laboratory Results Results Past 24 Hours Test 12/23/16 17:15 12/23/16 17:20 12/23/16 17:57 12/23/16 21:00 Range/Units White Blood Count 5.63 4.8-10.8 K/uL Red Blood Count 5.01 4.7-6.1 M/uL Hemoglobin 15.6 14.0-18.0 g/dL Hematocrit 45.6 42-52 % Mean Corpuscular Volume 91.0 80-100 fL Mean Corpuscular Hemoglobin 31.1 25-34 pg Mean Corpuscular Hemoglobin Concent 34.2 32-36 g/dl Platelet Count 111 130-400 K/uL Mean Platelet Volume 10.0 7.4-10.4 fL Neutrophils (%) (Auto) 67.4 % Lymphocytes (%) (Auto) 20.6 % Monocytes (%) (Auto) 11.2 % Eosinophils (%) (Auto) 0.2 % Basophils (%) (Auto) 0.4 % Neutrophils # (Auto) 3.80 1.4-6.5 K/uL Lymphocytes # (Auto) 1.16 1.2-3.4 K/uL Monocytes # (Auto) 0.63 0.11-0.59 K/uL Eosinophils # (Auto) 0.01 0-0.5 K/uL Basophils # (Auto) 0.02 0-0.2 K/uL RDW Standard Deviation 46.2 36.4-46.3 fL RDW Coefficient of Variation 13.9 11.5-14.5 % Immature Granulocyte % (Auto) 0.2 % Immature Granulocyte # (Auto) 0.01 0.00-0.02 K/uL Prothrombin Time 11.0 9.0-12.0 SECONDS Prothromb Time International Ratio 1.0 0.9-1.1 D-Dimer 270 0-500 ug/L FEU Sodium Level 140 136-145 mmol/L Potassium Level 3.7 3.5-5.1 mmol/L Chloride Level 107 98-107 mmol/L Carbon Dioxide Level 19 21-32 mmol/L Anion Gap 14.0 3-11 mmol/L Blood Urea Nitrogen 7 7-18 mg/dl Creatinine 0.76 0.60-1.40 mg/dl Est Creatinine Clear Calc Drug Dose 111.0 ml/min Estimated GFR () 123.3 Estimated GFR (Non- 106.4 BUN/Creatinine Ratio 9.7 10-20 Random Glucose 79 70-99 mg/dl Calcium Level 9.1 8.5-10.1 mg/dl Magnesium Level 1.6 1.8-2.4 mg/dl Total Bilirubin 1.0 0.2-1 mg/dl Aspartate Amino Transf (AST/SGOT) 74 15-37 U/L Alanine Aminotransferase (ALT/SGPT) 77 12-78 U/L Alkaline Phosphatase 56 45-117 U/L Troponin I < 0.015 < 0.015 0-0.045 ng/ml Pro-B-Type Natriuretic Peptide 15 0-900 pg/ml Total Protein 8.2 6.4-8.2 gm/dl Albumin 4.0 3.4-5.0 gm/dl Globulin 4.2 2.5-4.0 gm/dl Albumin/Globulin Ratio 1.0 0.9-2 Lipase 148 73-393 U/L Urine Opiates Screen NEG NEG Urine Methadone, Qualitative NEG NEG Urine Barbiturates NEG NEG Urine Phencyclidine (PCP) Level NEG NEG Ur Amphetamine/Methamphetamine NEG NEG MDMA (Ecstasy) Screen POS NEG Urine Benzodiazepines Screen NEG NEG Urine Cocaine Metabolite NEG NEG Urine Marijuana (THC) NEG NEG Ethyl Alcohol mg/dL < 3.0 0-3 mg/dl Test 12/24/16 06:12 Range/Units White Blood Count 7.04 4.8-10.8 K/uL Red Blood Count 4.49 4.7-6.1 M/uL Hemoglobin 13.7 14.0-18.0 g/dL Hematocrit 41.3 42-52 % Mean Corpuscular Volume 92.0 80-100 fL Mean Corpuscular Hemoglobin 30.5 25-34 pg Mean Corpuscular Hemoglobin Concent 33.2 32-36 g/dl RDW Standard Deviation 46.8 36.4-46.3 fL RDW Coefficient of Variation 13.8 11.5-14.5 % Platelet Count 101 130-400 K/uL Mean Platelet Volume 9.7 7.4-10.4 fL Sodium Level 141 136-145 mmol/L Potassium Level 3.1 3.5-5.1 mmol/L Chloride Level 108 98-107 mmol/L Carbon Dioxide Level 24 21-32 mmol/L Anion Gap 9.0 3-11 mmol/L Blood Urea Nitrogen 7 7-18 mg/dl Creatinine 0.71 0.60-1.40 mg/dl Est Creatinine Clear Calc Drug Dose 119.9 ml/min Estimated GFR () 126.8 Estimated GFR (Non- 109.4 BUN/Creatinine Ratio 9.6 10-20 Random Glucose 87 70-99 mg/dl Calcium Level 8.0 8.5-10.1 mg/dl Troponin I < 0.015 0-0.045 ng/ml Diagnostic Radiology CHEST ONE VIEW PORTABLE CLINICAL HISTORY: 51 years-old Male presenting with chest pain, EtOH withdrawal, shortness of breath. TECHNIQUE: Portable upright AP view of the chest was obtained. COMPARISON: 11/23/2016. FINDINGS: Cardiomediastinal silhouette normal. Lungs and pleural spaces clear. Osseous structures and upper abdomen normal. IMPRESSION: 1. No acute cardiopulmonary disease. Electronically signed by: Ben Garcia M.D. 12/23/2016 6:08 PM Dictated Date/Time: 12/23/2016 6:06 PM EKG Sinus tachycardia Prolonged QT When compared with ECG of 23-NOV-2016 18:00, No significant change was found Confirmed by JHONNY ROJAS ([id number]) on 12/23/2016 10:31:05 PM Impression Assessment and Plan 51-year-old male with past medical history of chronic alcohol abuse presented to the ER with complaints of chest pain which started about 4 hours ago. He states that it was associated with shortness of breath, chills, vomiting and diarrhea. Precordial chest pain: Likely secondary to gastritis/ esophagitis secondary to alcohol consumption - EKG: Sinus tachycardia, Prolonged QT When compared with ECG of 23-NOV-2016 18:00, No significant change was found -Initial troponin negative, trend every 8 hours Alcohol abuse - Chronic history of alcohol abuse - Alcohol withdrawal protocol with gabapentin and Ativan as needed - Continue IV fluids with banana - Seizure precautions DVT prophylaxis SCDs Full code Disposition :admitted to telemetry Attending Addendum: I physically seen and examined this patient, have supervised the medical residents activities, and agree with the H&P as noted above with the following exceptions: NONE The patient is awake, alert and oriented 2, normocephalic and atraumatic, looks chronically ill, lying in bed and in no acute distress. He does not recognize me from previous admissions, although I have admitted him at least 7 times in the past 2 years. HEENT--PERRL, EOMI, mucous membranes and oropharynx dry. Neck--supple, no JVD or bruits, thyroid normal, trachea midline, no adenopathy. Heart--normal S1 and S2, no extra beats, no murmurs, rubs or gallops. Lungs--clear bilaterally but diminished throughout, no respiratory distress, no accessory muscle use. Abdomen--normal bowel sounds and soft, nontender and nondistended, no hernias or masses, no organomegaly. Extremities--no cyanosis, clubbing or edema. There are good distal pulses b/l. Dermatologic--normal skin turgor, normal color, warm and dry, no abnormal lymph nodes, no rash. Neurologic--cranial nerves II through XII grossly intact. Rheumatologic--normal range of motion. Psychiatric--normal affect. Assessment and Plan: 1. Alcoholism/Alcohol abuse/alcohol withdrawal--he presents to the emergency department with symptoms of transient chest discomfort, shortness of breath, chills, vomiting and diarrhea, symptoms all suggestive of alcohol withdrawal. However, because of the chest discomfort complaint, he will undergo serial cardiac enzymes, and cardiac rhythm monitoring on telemetry. Place on the CIWA protocol with gabapentin as primary treatment, Ativan for severe withdrawal symptoms, and banana bag IV fluids. EKG shows sinus tachycardia with mildly prolonged QT and low magnesium level I.6 , treated with magnesium sulfate 2 g IV, with improvement in heart rate and QT interval. Psychiatry consult if patient wishes to seriously undergo rehabilitation as outpatient. Level of Care Telemetry Advanced Directives Existing Living Will: No Existing Power of Bulb Grader: No Resuscitation Status FULL RESUSCITATION VTE Prophylaxis VTE Risk Assessment Done? Y/N: Yes Risk Level: Moderate Given or contraindicated: SCD's
[2016-12-24 11:19] VITALS: BP 134/87; PULSE 88; TEMP 36.9; O2SAT 98
[2016-12-24] MEDS ORDERED: LORAZEPAM 2 MG/ML 1 ML VIAL IV PRN (13:30)
--- NOTE | 2016-12-24 14:33 | Progress Note ---
Subjective Date of Service: Dec 24, 2016. Subjective Pt evaluation today including: conversation w/ patient, physical exam, lab review, review of inpatient medication list Pain: no pain PO Intake: adequate Voiding: no voiding problems patient known to me from prior admissions was sober for a short while and then he lost his job, his outpatient rehab office closed unexpectedly his fiance continues to drink and it causes him a great deal of stress no further chest pain his tremors are relieved with Ativan discussed transfer to medical floor Problem List Medical Problems: (1) Alcohol abuse Status: Acute (2) Alcohol intoxication Status: Acute (3) Alcohol withdrawal Status: Acute (4) Alcohol withdrawal Status: Acute (5) Alcohol withdrawal Status: Acute (6) Alcohol withdrawal Status: Acute (7) Alcohol withdrawal Status: Acute (8) Alcoholic Status: Acute (9) Alcoholic hepatitis Status: Acute (10) Anxiety Status: Acute (11) Anxiety Status: Acute (12) Atrial fibrillation with RVR Status: Acute (13) Chest pain Status: Acute (14) Chest pain Status: Acute (15) Dehydration Status: Acute (16) Elevated LFTs Status: Acute (17) Facial laceration Status: Acute (18) Fall Status: Acute (19) High anion gap metabolic acidosis Status: Acute (20) Hypokalemia Status: Acute (21) Hypophosphatemia Status: Acute (22) Lip laceration Status: Acute (23) Malnutrition Status: Acute (24) Seizure Status: Acute (25) Thrombocytopenia Status: Acute Review of Systems Constitutional: + weakness, + fatigue Neurologic: + problem reported (tremors) Psychiatric: + anxiety, + insomnia All Other Systems: Reviewed and Negative Medications Current Inpatient Medications Medications (Trade) Dose Ordered Sig/Dyan Route Start Time Stop Time Status Last Admin Dose Admin Acetaminophen (Tylenol Tab) 650 mg Q4H PRN PO 12/24/16 01:00 01/23/17 00:59 Magnesium Hydroxide (Milk Of Magnesia Susp) 30 ml Q12H PRN PO 12/24/16 01:00 01/23/17 00:59 Ondansetron HCl (Zofran Inj) 4 mg Q6H PRN IV 12/24/16 01:00 01/23/17 00:59 Future Hold Polyethylene (Miralax Powder Packet) 17 gm DAILY PRN PO 12/24/16 01:00 01/23/17 00:59 Folic Acid (Folvite Tab) 1 mg DAILY PO 12/24/16 09:00 01/23/17 08:59 12/24/16 07:58 1 MG Magnesium Oxide (Mag-Ox Tab) 400 mg BID PO 12/24/16 09:00 01/23/17 08:59 12/24/16 07:59 400 MG Mirtazapine (Remeron Tab) 15 mg HS PO 12/24/16 21:00 01/23/17 20:59 Thiamine HCl (Vitamin B-1 Tab) 100 mg BID PO 12/24/16 09:00 01/23/17 08:59 12/24/16 07:58 100 MG Trazodone HCl (Desyrel Tab) 50 mg HS PO 12/24/16 21:00 01/23/17 20:59 Gabapentin (Neurontin Tab) 600 mg Q6H PO 12/24/16 10:00 12/24/16 16:01 12/24/16 07:58 600 MG Gabapentin (Neurontin Tab) 600 mg Q8H PO 12/25/16 00:00 12/25/16 16:01 Gabapentin (Neurontin Tab) 600 mg Q12H PO 12/26/16 04:00 12/26/16 16:01 Gabapentin (Neurontin Tab) 600 mg Q24H PO 12/27/16 16:00 12/27/16 16:01 Lorazepam (Ativan Tab) PRN Dosing -Active Protocol UD PRN PO 12/24/16 13:30 01/23/17 13:29 Lorazepam (Ativan Inj) 1 mg Q4 PRN IV 12/24/16 13:30 Objective Vital Signs Date Time Temp Pulse Resp B/P (MAP) Pulse Ox O2 Delivery O2 Flow Rate FiO2 12/24/16 12:00 Room Air 12/24/16 11:19 36.9 88 18 134/87 (103) 98 Room Air 12/24/16 08:00 Room Air 12/24/16 07:58 36.9 82 18 131/85 (100) 96 Room Air 12/24/16 04:00 Room Air 12/24/16 03:15 36.7 85 18 151/92 97 Room Air 12/24/16 02:55 89 20 140/88 96 Room Air 12/24/16 02:21 36.9 12/24/16 02:00 102 20 137/93 97 Room Air 12/24/16 01:09 89 12/24/16 00:00 94 22 145/108 96 Room Air 12/23/16 22:00 98 20 145/102 96 Room Air 12/23/16 21:17 99 12/23/16 19:56 107 22 139/100 96 Room Air 12/23/16 17:17 112 12/23/16 16:48 36.6 109 18 151/88 96 Room Air Physical Exam General Appearance: WD/WN, no apparent distress Eyes: normal inspection, EOMI, sclerae normal Neck: supple, no adenopathy, no JVD, trachea midline Respiratory/Chest: chest non-tender, lungs clear, normal breath sounds, no respiratory distress, no accessory muscle use Cardiovascular: regular rate, rhythm, no edema, no gallop, no JVD, no murmur Abdomen: normal bowel sounds, non tender, soft, no organomegaly Extremities: normal range of motion, non-tender, normal inspection, no pedal edema, no calf tenderness 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, no motor/sensory deficits, alert, oriented x 3, + pertinent finding (anxious, mild resting tremors) Skin: normal color, warm/dry, no rash Laboratory Results Last 24 Hours Test 12/23/16 17:15 12/23/16 17:20 12/23/16 17:57 12/23/16 21:00 White Blood Count 5.63 K/uL Red Blood Count 5.01 M/uL Hemoglobin 15.6 g/dL Hematocrit 45.6 % Mean Corpuscular Volume 91.0 fL Mean Corpuscular Hemoglobin 31.1 pg Mean Corpuscular Hemoglobin Concent 34.2 g/dl Platelet Count 111 K/uL Mean Platelet Volume 10.0 fL Neutrophils (%) (Auto) 67.4 % Lymphocytes (%) (Auto) 20.6 % Monocytes (%) (Auto) 11.2 % Eosinophils (%) (Auto) 0.2 % Basophils (%) (Auto) 0.4 % Neutrophils # (Auto) 3.80 K/uL Lymphocytes # (Auto) 1.16 K/uL Monocytes # (Auto) 0.63 K/uL Eosinophils # (Auto) 0.01 K/uL Basophils # (Auto) 0.02 K/uL RDW Standard Deviation 46.2 fL RDW Coefficient of Variation 13.9 % Immature Granulocyte % (Auto) 0.2 % Immature Granulocyte # (Auto) 0.01 K/uL Prothrombin Time 11.0 SECONDS Prothromb Time International Ratio 1.0 D-Dimer 270 ug/L FEU Sodium Level 140 mmol/L Potassium Level 3.7 mmol/L Chloride Level 107 mmol/L Carbon Dioxide Level 19 mmol/L Anion Gap 14.0 mmol/L Blood Urea Nitrogen 7 mg/dl Creatinine 0.76 mg/dl Est Creatinine Clear Calc Drug Dose 111.0 ml/min Estimated GFR () 123.3 Estimated GFR (Non- 106.4 BUN/Creatinine Ratio 9.7 Random Glucose 79 mg/dl Calcium Level 9.1 mg/dl Magnesium Level 1.6 mg/dl Total Bilirubin 1.0 mg/dl Aspartate Amino Transf (AST/SGOT) 74 U/L Alanine Aminotransferase (ALT/SGPT) 77 U/L Alkaline Phosphatase 56 U/L Troponin I < 0.015 ng/ml < 0.015 ng/ml Pro-B-Type Natriuretic Peptide 15 pg/ml Total Protein 8.2 gm/dl Albumin 4.0 gm/dl Globulin 4.2 gm/dl Albumin/Globulin Ratio 1.0 Lipase 148 U/L Urine Opiates Screen NEG Urine Methadone, Qualitative NEG Urine Barbiturates NEG Urine Phencyclidine (PCP) Level NEG Ur Amphetamine/Methamphetamine NEG MDMA (Ecstasy) Screen POS Urine Benzodiazepines Screen NEG Urine Cocaine Metabolite NEG Urine Marijuana (THC) NEG Ethyl Alcohol mg/dL < 3.0 mg/dl Test 12/24/16 06:12 12/24/16 12:37 White Blood Count 7.04 K/uL Red Blood Count 4.49 M/uL Hemoglobin 13.7 g/dL Hematocrit 41.3 % Mean Corpuscular Volume 92.0 fL Mean Corpuscular Hemoglobin 30.5 pg Mean Corpuscular Hemoglobin Concent 33.2 g/dl RDW Standard Deviation 46.8 fL RDW Coefficient of Variation 13.8 % Platelet Count 101 K/uL Mean Platelet Volume 9.7 fL Sodium Level 141 mmol/L Potassium Level 3.1 mmol/L Chloride Level 108 mmol/L Carbon Dioxide Level 24 mmol/L Anion Gap 9.0 mmol/L Blood Urea Nitrogen 7 mg/dl Creatinine 0.71 mg/dl Est Creatinine Clear Calc Drug Dose 119.9 ml/min Estimated GFR () 126.8 Estimated GFR (Non- 109.4 BUN/Creatinine Ratio 9.6 Random Glucose 87 mg/dl Calcium Level 8.0 mg/dl Troponin I < 0.015 ng/ml < 0.015 ng/ml Assessment and Plan 51-year-old male with past medical history of chronic alcohol abuse presented to the ER with complaints of chest pain which started about 4 hours ago. He states that it was associated with shortness of breath, chills, vomiting and diarrhea. Precordial chest pain: Likely secondary to gastritis/ esophagitis secondary to alcohol consumption - EKG: Sinus tachycardia, Prolonged QT When compared with ECG of 23-NOV-2016 18:00, No significant change was found -serial enzymes negative - chest pain non cardiac, will transfer to medical floor Alcohol abuse - Chronic history of alcohol abuse - Alcohol withdrawal protocol with gabapentin and Ativan as needed - Continue IV fluids with banana, likely stop tomorrow - Seizure precautions - outpatient rehab office closed unexpectedly, will need to come up with new plan for staying sober DVT prophylaxis SCDs Full code
[2016-12-24 16:18] VITALS: BP 140/93; PULSE 82; TEMP 36.8; O2SAT 96
[2016-12-24 20:00] VITALS: BP 138/94; PULSE 94; TEMP 36.9; O2SAT 97
[2016-12-24] MEDS: MIRTAZAPINE TAB 15 MG TAB PO SCH (22:11)
[2016-12-24] MEDS: TRAZODONE HCL 50 MG TAB PO SCH (22:11)
[2016-12-24] MEDS: GABAPENTIN 600MG Q8H DOSE PO SCH (23:24)
[2016-12-24 23:46] VITALS: BP 145/88; PULSE 87; TEMP 36.6; O2SAT 94
[2016-12-25 07:27] VITALS: BP 132/90; PULSE 80; TEMP 36.9; O2SAT 95
[2016-12-25] MEDS: GABAPENTIN 600MG Q8H DOSE PO SCH ×2 (08:17→16:41)
[2016-12-25] MEDS: MAGNESIUM OXIDE 400 MG TAB PO SCH ×2 (08:18→19:11)
[2016-12-25] MEDS: POTASSIUM CHLORIDE 20 MEQ TABCR PO SCH (08:18)
--- NOTE | 2016-12-25 12:46 | Progress Note ---
Subjective Date of Service: Dec 25, 2016. Subjective Pt evaluation today including: conversation w/ patient, physical exam, review of inpatient medication list Pain: no pain PO Intake: adequate Voiding: no voiding problems patient still quite anxious and with tremors, received Ativan PO this AM has plan in place for outpatient rehab here in [place] instructed him to ambulate in the halls, get a shower, continue to eat still with mild withdrawal symptoms that should be resolved tomorrow, should d/ c tomorrow, he agrees Problem List Medical Problems: (1) Alcohol abuse Status: Acute (2) Alcohol intoxication Status: Acute (3) Alcohol withdrawal Status: Acute (4) Alcohol withdrawal Status: Acute (5) Alcohol withdrawal Status: Acute (6) Alcohol withdrawal Status: Acute (7) Alcohol withdrawal Status: Acute (8) Alcoholic Status: Acute (9) Alcoholic hepatitis Status: Acute (10) Anxiety Status: Acute (11) Anxiety Status: Acute (12) Atrial fibrillation with RVR Status: Acute (13) Chest pain Status: Acute (14) Chest pain Status: Acute (15) Dehydration Status: Acute (16) Elevated LFTs Status: Acute (17) Facial laceration Status: Acute (18) Fall Status: Acute (19) High anion gap metabolic acidosis Status: Acute (20) Hypokalemia Status: Acute (21) Hypophosphatemia Status: Acute (22) Lip laceration Status: Acute (23) Malnutrition Status: Acute (24) Seizure Status: Acute (25) Thrombocytopenia Status: Acute Review of Systems Constitutional: + weakness, + fatigue Neurologic: + problem reported (intermittent tremors) Psychiatric: + anxiety All Other Systems: Reviewed and Negative Medications Current Inpatient Medications Medications (Trade) Dose Ordered Sig/Dayn Route Start Time Stop Time Status Last Admin Dose Admin Acetaminophen (Tylenol Tab) 650 mg Q4H PRN PO 12/24/16 01:00 01/23/17 00:59 Magnesium Hydroxide (Milk Of Magnesia Susp) 30 ml Q12H PRN PO 12/24/16 01:00 01/23/17 00:59 Ondansetron HCl (Zofran Inj) 4 mg Q6H PRN IV 12/24/16 01:00 01/23/17 00:59 Future Hold Polyethylene (Miralax Powder Packet) 17 gm DAILY PRN PO 12/24/16 01:00 01/23/17 00:59 Folic Acid (Folvite Tab) 1 mg DAILY PO 12/24/16 09:00 01/23/17 08:59 12/25/16 08:18 1 MG Magnesium Oxide (Mag-Ox Tab) 400 mg BID PO 12/24/16 09:00 01/23/17 08:59 12/25/16 08:18 400 MG Mirtazapine (Remeron Tab) 15 mg HS PO 12/24/16 21:00 01/23/17 20:59 12/24/16 22:11 15 MG Thiamine HCl (Vitamin B-1 Tab) 100 mg BID PO 12/24/16 09:00 01/23/17 08:59 12/24/16 20:42 100 MG Trazodone HCl (Desyrel Tab) 50 mg HS PO 12/24/16 21:00 01/23/17 20:59 12/24/16 22:11 50 MG Gabapentin (Neurontin Tab) 600 mg Q8H PO 12/25/16 00:00 12/25/16 16:01 12/25/16 08:17 600 MG Gabapentin (Neurontin Tab) 600 mg Q12H PO 12/26/16 04:00 12/26/16 16:01 Gabapentin (Neurontin Tab) 600 mg Q24H PO 12/27/16 16:00 12/27/16 16:01 Lorazepam (Ativan Tab) PRN Dosing -Active Protocol UD PRN PO 12/24/16 13:30 01/23/17 13:29 12/25/16 08:17 1 MG Lorazepam (Ativan Inj) 1 mg Q4 PRN IV 12/24/16 13:30 Potassium Chloride (Klor-Con Tab) 20 meq QAM PO 12/25/16 08:00 01/24/17 08:59 12/25/16 08:18 20 MEQ Objective Vital Signs Date Time Temp Pulse Resp B/P (MAP) Pulse Ox O2 Delivery O2 Flow Rate FiO2 12/25/16 08:15 Room Air 12/25/16 07:27 36.9 80 16 132/90 (104) 95 Room Air 12/25/16 00:00 Room Air 12/24/16 23:46 36.6 87 20 145/88 (107) 94 Room Air 12/24/16 20:00 36.9 94 16 138/94 (109) 97 Room Air 12/24/16 16:18 36.8 82 18 140/93 (109) 96 Room Air 12/24/16 16:00 Room Air Physical Exam General Appearance: WD/WN, no apparent distress Eyes: normal inspection, EOMI, sclerae normal ENT: normal ENT inspection, hearing grossly normal, pharynx normal Neck: supple, no adenopathy, no JVD, trachea midline Respiratory/Chest: chest non-tender, lungs clear, normal breath sounds, no respiratory distress, no accessory muscle use Cardiovascular: regular rate, rhythm, no edema, no gallop, no JVD, no murmur Abdomen: normal bowel sounds, non tender, soft, no organomegaly Extremities: normal range of motion, non-tender, normal inspection, no pedal edema, no calf tenderness, pelvis stable 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 He states that it was associated with shortness of breath, chills, vomiting and diarrhea. Precordial chest pain: Likely secondary to gastritis/ esophagitis secondary to alcohol consumption - EKG: Sinus tachycardia, Prolonged QT When compared with ECG of 23-NOV-2016 18:00, No significant change was found -serial enzymes negative - chest pain non cardiac, stable on medical floor Alcohol abuse now with withdrawal - Chronic history of alcohol abuse - Alcohol withdrawal protocol with gabapentin and Ativan as needed - stop IV fluids today - Seizure precautions - patient was able to find a new outpatient rehab that has a psychiatrist available, plans to go next week - encouraged to get rest but to ambulate in halls, shower, eat and plan for d/c home tomorrow AM, he agrees with this plan DVT prophylaxis SCDs Full code
[2016-12-25 15:20] VITALS: BP 129/88; PULSE 87; TEMP 37; O2SAT 97
[2016-12-25] MEDS: THIAMINE HCL 100 MG TAB PO SCH ×2 (16:41→19:11)
[2016-12-25] MEDS: MIRTAZAPINE TAB 15 MG TAB PO SCH (21:46)
[2016-12-25] MEDS: TRAZODONE HCL 50 MG TAB PO SCH (21:46)
[2016-12-25 23:07] VITALS: BP 130/86; PULSE 94; TEMP 37; O2SAT 97
[2016-12-26] MEDS ORDERED: GABAPENTIN 600MG Q12H DOSE PO SCH (04:00)
[2016-12-26] MEDS: MAGNESIUM OXIDE 400 MG TAB PO SCH (07:25)
[2016-12-26] MEDS: THIAMINE HCL 100 MG TAB PO SCH (07:25)
[2016-12-26] MEDS: POTASSIUM CHLORIDE 20 MEQ TABCR PO SCH (07:25)
[2016-12-26 07:35] VITALS: BP 124/85; PULSE 93; TEMP 36.4; O2SAT 95
[2016-12-26 08:00] VITALS: O2SAT 95
[2016-12-26] MEDS ORDERED: LORA-741 PO (10:39)
--- NOTE | 2016-12-26 10:41 | Discharge Instructions ---
Discharge Instructions Date of Service Dec 26, 2016. Admission Reason for Admission: Alcohol Withdrawal Discharge Discharge Diagnosis / Problem: Alcohol withdrawal, anxiety, depression Discharge Goals Goal(s): Improve function, Improve disease control, Therapeutic intervention ( follow up with outpatient rehab, psychiatry) Activity Recommendations Activity Limitations: resume your previous activity Lifting Limitations: none Exercise/Sports Limitations: as tolerated May Resume Sexual Activity: when tolerated Shower/Bathe: no limitations Driving or Machine Use: do not drive after taking Ativan . Instructions / Follow-Up Instructions / Follow-Up Medications: - ATIVAN: short prescription given if you have any further tremors or extreme anxiety. DO NOT TAKE MORE THAN PRESCRIBED. FOLLOW UP - please follow up with outpatient rehab with psychiatry as you plan, this week Current Hospital Diet Patient's current hospital diet: Regular Diet Discharge Diet Recommended Diet: Regular Diet Pending Studies Studies pending at discharge: no Medical Emergencies . Who to Call and When: Medical Emergencies: If at any time you feel your situation is an emergency, please call 911 immediately. . Non-Emergent Contact Non-Emergency issues call your: Primary Care Provider Call Non-Emergent contact if: you have any medication questions . . "Provider Documentation" section prepared by Junior Rodas. . VTE Core Measure Inpt VTE Proph given/why not?: SCD's [place] Drug Monitoring Program Search Results: no issues identified
[2016-12-26 10:48] VITALS: BP 124/85; PULSE 93; TEMP 36.4; O2SAT 95
--- NOTE | 2016-12-26 12:41 | Discharge Summary ---
Discharge Summary Date of Service Dec 26, 2016. Discharge Summary Admission Date: Dec 24, 2016 at 01:01 Discharge Date: Dec 26, 2016 Discharge Disposition: Home Principal Diagnosis: Alcohol withdrawal Problems/Secondary Diagnoses: Chest pain alcoholism Anxiety Procedures: none Consultations: none Medication Reconciliation New Medications: Lorazepam (Ativan) 0.5 Mg Tab 0.5 MG PO Q12 PRN for Anxiety/Agitation, #10 TAB Continued Medications: Cholecalciferol (Vitamin D3) 2,000 Unit Cap 2000 INTER.UNIT PO DAILY, CAP Cyanocobalamin (Vitamin B12) 1,000 Mcg Tab 1000 MCG PO DAILY Folic Acid (Folvite) 1 Mg Tab 1 MG PO DAILY, #90 TAB Magnesium Oxide (Mag-Ox) 400 Mg Tab 400 MG PO BID, #60 TAB 2 Refills Mirtazapine (Remeron) 15 Mg Tab 15 MG PO HS, #30 Multivitamin (Multivitamin) Tab 1 TAB PO DAILY Thiamine Hcl (Vitamin B-1) 100 Mg Tab 100 MG PO BID, #60 TAB 3 Refills Trazodone Hcl (Trazodone) 50 Mg Tab 50 MG PO HS, TAB Discharge Exam Patient feeling better this AM, less tremors, less anxiety. Eating well. Ambulating in halls all day and night, showered. ready to go home discussed plan to follow up with outpatient rehab Review of Systems: Constitutional: No fever, No chills, No sweats, No weight loss, No weakness , No fatigue, No problem reported Eyes: No worsening of vision, No eye pain, No redness, No discharge, No diplopia, No problem reported ENT: No hearing loss, No unusual epistaxis, No nasal symptoms, No sore throat, No tinnitus, No dental problems, No trouble swallowing, No problem reported Respiratory: No cough, No sputum, No wheezing, No shortness of breath, No dyspnea on exertion, No dyspnea at rest, No hemoptysis, No problem reported Cardiovascular: No chest pain, No orthopnea, No PND, No edema, No claudication, No palpitations, No problem reported Abdomen: No pain, No nausea, No vomiting, No diarrhea, No constipation, No GI bleeding, No problem reported Musculoskeletal: No joint pain, No muscle pain, No swelling, No calf pain, No problem reported Genitourinary - Male: No hematuria, No dysuria, No urinary frequency, No urinary urgency Neurologic: No memory loss, No paralysis, No weakness, No numbness/tingling , No vertigo, No balance problems, No problem reported Psychiatric: + depression symptoms, + anxiety, + insomnia, + substance abuse Endocrine: No fatigue, No excessive thirst, No excessive urination, No problem reported Hematologic / Lymphatic: No abnormal bleeding/bruising, No clotting problems , No swollen lymph nodes, No night sweats, No problem reported Integumentary: No rash, No itch, No new/changing skin lesions, No color change, No bleeding, No problem reported Physical Exam: General Appearance: WD/WN, no apparent distress Eyes: normal inspection, EOMI, sclerae normal ENT: normal ENT inspection, hearing grossly normal, pharynx normal Neck: supple, no adenopathy, no JVD, trachea midline Respiratory/Chest: chest non-tender, lungs clear, normal breath sounds, no respiratory distress, no accessory muscle use Cardiovascular: regular rate, rhythm, no edema, no gallop, no JVD, no murmur , normal peripheral pulses Abdomen / GI: normal bowel sounds, non tender, soft, no organomegaly Extremities: normal inspection, no calf tenderness, normal capillary refill , no pedal edema, normal range of motion, pelvis stable 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 He states that it was associated with shortness of breath, chills, vomiting and diarrhea. Precordial chest pain: Likely secondary to gastritis/ esophagitis secondary to alcohol consumption - EKG: Sinus tachycardia, Prolonged QT -serial enzymes negative - chest pain non cardiac, stable on medical floor Alcohol abuse now with withdrawal - Chronic history of alcohol abuse - Alcohol withdrawal protocol with gabapentin and Ativan as needed, Ativan given yesterday but none since - patient was able to find a new outpatient rehab that has a psychiatrist available, plans to go next week - encouraged to get rest but to ambulate in halls, shower, eat - he feels ready for discharge - continue Remeron and Trazodone for anxiety - small prescription given for Ativan 0.5mg (10 tabs) for anxiety, withdrawal symptoms over next week DVT prophylaxis SCDs Full code Total Time Spent: Greater than 30 minutes This includes examination of the patient, discharge planning, medication reconciliation, and communication with other providers. Discharge Instructions Please refer to the electronic Patient Visit Report (Discharge Instructions) for additional information. Follow-Up Outpatient rehab this week
[2016-12-27] MEDS ORDERED: GABAPENTIN 600MG Q24H DOSE PO SCH (16:00)
== END 2016-12-26 13:57 | disposition home or self-care (01) | DRG 897 ==
LOC: C.EDB 16:40 → C.2T 12-24 01:01 → ENRESERV 12-24 01:17 → C.MS4W 12-24 14:50
PROVIDERS: ADMIT Family Medicine; ATTEND Internal Medicine
DX: F10.230 Alcohol dependence with withdrawal, uncomplicated (principal); R07.9 Chest pain, unspecified; K29.70 Gastritis, unspecified, without bleeding

== ENCOUNTER 2017-02-08 19:26 | Inpatient (IN) | payer OTHER ==
[~2017-02-08] VITALS: Ht 162.6 cm; Wt 79.0 kg
[~2017-02-08 19:26] MED LIST changes: -ATV5 PO; -HYDCR1CL EXT
[2017-02-08] MEDS ORDERED: LORAZEPAM 2 MG/ML 1 ML VIAL IV STA ×2 (19:52→21:45)
[2017-02-08] MEDS ORDERED: ONDANSETRON INJ 2 MG/ML 2 ML VIAL IV STA (20:04)
--- NOTE | 2017-02-08 20:04 | EMERGENCY ROOM VISIT NOTE ---
History First contact with patient: 19:46 Chief Complaint: DIZZY Stated Complaint: VERTIGO,NAUSEA,SHAKES, SOB History of Present Illness The patient is a 51 year old male who presents to the Emergency Room with complaints of dizziness (vertigo), agitation, tremors, nausea and diarrhea. He admits to drinking alcohol daily (6-9 beers/day). His last drink was 3-5am this morning. He lives with his partner who also drinks daily and they have taken all the alcohol out of their house as they wish to give up. Due to his nausea he decided to come to the ER as he has previously had seizures during withdrawals and therefore felt it would be safer to withdraw here. He has been hospitalized twice recently at [facility] for alcohol withdrawal in November and December. Last was went to inpatient rehabilitation 2 years ago. He managed to stay sober for 100 days but then went back. He has previous had seizures for alcohol withdrawal February 2013, July 2013 (admitted in [place], [place]). He was drinking more then including vodka and scotch all hours of the day. Review of Systems Constitutional: No fever, No chills Eyes: No worsening of vision ENT: No hearing loss Respiratory: No cough Cardiovascular: + palpitations (occasionally), No chest pain, No orthopnea, No PND, No edema, No claudication Abdomen: + pain, + nausea, + diarrhea, No vomiting, No constipation, No GI bleeding Musculoskeletal: No joint pain, No muscle pain Genitourinary - Male: No hematuria, No dysuria, No urinary frequency, No urinary urgency Neurologic: No memory loss Hematologic / Lymphatic: No abnormal bleeding/bruising Integumentary: + rash (dry dermatitis on face consistent with alcohol use), No itch Past Medical/Surgical History Medical Problems: (1) Alcohol overdose (2) Alcohol withdrawal (3) Alcohol withdrawal (4) Alcoholism (5) Compression fracture of body of thoracic vertebra (6) Compression fracture of L1 lumbar vertebra (7) Hypokalemia (8) Hypomagnesemia (9) Seizure-like activity Family History Cancer Diabetes mellitus Lung disease Social History Smoking Status: Never Smoker Smokeless Tobacco Use: No Alcohol Use: heavy Drug Use: none Marital Status: in relationship Housing Status: lives with significant other Occupation Status: employed Current/Historical Medications Scheduled Cholecalciferol (Vitamin D3), 2,000 INTER.UNIT PO DAILY Cyanocobalamin (Vitamin B12), 1,000 MCG PO DAILY Folic Acid (Folvite), 1 MG PO DAILY Magnesium Oxide (Mag-Ox), 400 MG PO BID Mirtazapine (Remeron), 15 MG PO HS Multivitamin (Multivitamin), 1 TAB PO DAILY Thiamine Hcl (Vitamin B-1), 100 MG PO BID Trazodone Hcl (Trazodone), 50 MG PO HS Physical Exam Vital Signs Date Time Temp Pulse Resp B/P (MAP) Pulse Ox O2 Delivery O2 Flow Rate FiO2 02/08/17 19:49 83 02/08/17 19:34 36.4 88 18 164/99 98 Room Air Physical Exam General Appearance: WD/WN, + mild distress (tremors) Eyes: normal inspection, PERRL, EOMI (nystagmus noted, causing dizziness) Neck: supple, no JVD, trachea midline Respiratory/Chest: chest non-tender, lungs clear, normal breath sounds, no respiratory distress, no accessory muscle use Cardiovascular: regular rate, rhythm, no edema, no murmur, normal peripheral pulses Abdomen / GI: normal bowel sounds, non tender, soft Back: no CVA tenderness Extremities: no calf tenderness, normal capillary refill, no pedal edema Neurologic/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 COMPARISON STUDY: Chest radiograph December 23, 2016. FINDINGS: Old deformity of the proximal left humeral head is noted with possible malalignment of the left glenohumeral joint. No pneumothorax or pleural effusion is present. There is no consolidation to suggest pneumonia. Pulmonary vascularity is normal. Cardiomediastinal silhouette is normal. IMPRESSION: 1. No acute cardiopulmonary findings. 2. Chronic deformity of the proximal left humerus with possible malalignment of the left glenohumeral joint which is suboptimally assessed on this exam. Electronically signed by: Akhil Russell M.D. 02/08/2017 8:16 PM Dictated Date/Time: 02/08/2017 8:15 PM Laboratory Results 02/08/17 20:10 Red Blood Count 5.30, Mean Corpuscular Volume 88.9, Mean Corpuscular Hemoglobin 30.9, Mean Corpuscular Hemoglobin Concent 34.8, Mean Platelet Volume 9.8, Neutrophils (%) (Auto) 59.3, Lymphocytes (%) (Auto) 30.9, Monocytes (%) (Auto) 9.1, Eosinophils (%) (Auto) 0.0, Basophils (%) (Auto) 0.5, Neutrophils # (Auto) 2.61, Lymphocytes # (Auto) 1.36, Monocytes # (Auto) 0.40, Eosinophils # (Auto) 0.00, Basophils # (Auto) 0.02 02/08/17 20:10 Test 02/08/17 20:10 02/08/17 22:05 White Blood Count 4.40 K/uL (4.8-10.8) Red Blood Count 5.30 M/uL (4.7-6.1) Hemoglobin 16.4 g/dL (14.0-18.0) Hematocrit 47.1 % (42-52) Mean Corpuscular Volume 88.9 fL (80-100) Mean Corpuscular Hemoglobin 30.9 pg (25-34) Mean Corpuscular Hemoglobin Concent 34.8 g/dl (32-36) Platelet Count 150 K/uL (130-400) Mean Platelet Volume 9.8 fL (7.4-10.4) Neutrophils (%) (Auto) 59.3 % Lymphocytes (%) (Auto) 30.9 % Monocytes (%) (Auto) 9.1 % Eosinophils (%) (Auto) 0.0 % Basophils (%) (Auto) 0.5 % Neutrophils # (Auto) 2.61 K/uL (1.4-6.5) Lymphocytes # (Auto) 1.36 K/uL (1.2-3.4) Monocytes # (Auto) 0.40 K/uL (0.11-0.59) Eosinophils # (Auto) 0.00 K/uL (0-0.5) Basophils # (Auto) 0.02 K/uL (0-0.2) RDW Standard Deviation 46.3 fL (36.4-46.3) RDW Coefficient of Variation 14.2 % (11.5-14.5) Immature Granulocyte % (Auto) 0.2 % Immature Granulocyte # (Auto) 0.01 K/uL (0.00-0.02) Prothrombin Time 11.2 SECONDS (9.0-12.0) Prothromb Time International Ratio 1.0 (0.9-1.1) Activated Partial Thromboplast Time 25.1 SECONDS (21.0-31.0) Partial Thromboplastin Ratio 1.0 Anion Gap 14.0 mmol/L (3-11) Est Creatinine Clear Calc Drug Dose 101.2 ml/min Estimated GFR () 118.9 Estimated GFR (Non- 102.6 BUN/Creatinine Ratio 11.8 (10-20) Calcium Level 8.6 mg/dl (8.5-10.1) Total Bilirubin 1.1 mg/dl (0.2-1) Alanine Aminotransferase (ALT/SGPT) 62 U/L (12-78) Alkaline Phosphatase 64 U/L (45-117) Total Protein 8.0 gm/dl (6.4-8.2) Albumin 3.5 gm/dl (3.4-5.0) Globulin 4.5 gm/dl (2.5-4.0) Albumin/Globulin Ratio 0.8 (0.9-2) Ethyl Alcohol mg/dL 9.0 mg/dl (0-3) Medications Administered Medications (Trade) Dose Ordered Sig/Dyan Route Start Time Stop Time Status Last Admin Dose Admin Lorazepam (Ativan Inj) 1 mg NOW STAT IV 02/08/17 19:52 02/08/17 19:56 DC 02/08/17 20:25 1 MG Ondansetron HCl (Zofran Inj) 4 mg NOW STAT IV 02/08/17 20:04 02/08/17 20:05 DC 02/08/17 20:25 4 MG Sodium Chloride 1,000 ml @ 999 mls/hr Q1H1M STAT IV 02/08/17 20:36 02/08/17 21:36 DC 02/08/17 20:36 999 MLS/HR Multivitamins (Multivitamin Tab) 1 tab NOW STAT PO 02/08/17 21:29 02/08/17 21:30 DC 02/08/17 22:07 1 TAB Lorazepam (Ativan Inj) 1 mg NOW STAT IV 02/08/17 21:45 02/08/17 21:46 DC 02/08/17 22:07 1 MG Thiamine HCl 100 mg/Syringe 10 ml @ 2 mls/min NOW ONCE IV 02/08/17 22:15 02/08/17 22:19 02/08/17 22:08 2 MLS/MIN ECG Indication: chest pain, nausea Rate (beats per minute): 83 Rhythm: normal sinus Findings: no acute ischemic change Change: no significant change (23 December 2016) ED Course 19:45 History and Physical performed by myself 20:[address] Diaz who separately performed history and examination 20:25 Lorazepam 1mg IV and Zofran 4mg SQ given 20:36 1L NSS bolus started 21:44 Consultation placed to [facility] Hospitalist for further assessment Medical Decision Prior records/ancillary studies reviewed. Triage Nursing notes reviewed. Additional history obtained from the patient and previous records. The patient's history was concerning for alcohol withdrawal and a history of seizures. Differential diagnosis: Etiologies such as alcohol intoxication, toxicologic, infection, hypoglycemia, electrolyte abnormalities, cardiac sources, intracerebral event, neurologic, as well as others were entertained. Physical examination: As above. The patient appear to be clinically withdrawing from alcohol with a CIWA score of 18. ER treatment provided: Monitoring Zofran 4mg SQ daily Ativan 1mg IV NSS 1L bolus Seizure precautions The patient was frequently reassessed. Diagnostic interpretation by me: Cardiac monitoring did not reveal any evidence of dysrhythmia. The labs revealed elevated AST consistent with alcoholic liver disease but were otherwise unremarkable. The patient's blood alcohol level was 9 mg/dL. Imaging studies: CXR - no acute pathology This appears to be consistent with alcohol withdrawal. Since he still has a positive alcohol level this is more concerning alcohol withdrawal. He also has a history of seizures from withdrawals and a poor support network (his partner also drinks daily) therefore inpatient treatment for alcohol withdrawal was felt to be a safer option. By the evaluation outlined above emergent etiologies such as trauma, infection, hypoglycemia, electrolyte abnormalities, cardiac sources, intracerebral event, neurologic,as well as others were deemed relatively unlikely. The patient was informed about the findings as listed above. I gave my usual and customary discussion regarding alcohol use disorder. All questions were answered and the patient was pleased with the treatment. Medication Reconcilliation Current Medication List: was personally reviewed by me Consults Time Called: 21:44 Consulting Physician: Dr Diego Evaluated patient Impression Primary Impression: Alcohol withdrawal Departure Information Dispostion Being Evaluated By Hospitalist Condition FAIR Referrals No Doctor, Assigned (PCP) Patient Instructions My [facility] Resident Tracking Resident Involvement: Resident Care Provided Care Provided: Adult ED Problem Qualifiers Primary Impression: Alcohol withdrawal Complication of substance-induced condition: uncomplicated Qualified Codes: F10.230 - Alcohol dependence with withdrawal, uncomplicated
--- NOTE | 2017-02-08 20:18 | DIAGNOSTIC IMAGING REPORT ---
CHEST ONE VIEW PORTABLE CLINICAL HISTORY: Chest pain. COMPARISON STUDY: Chest radiograph December 23, 2016. FINDINGS: Old deformity of the proximal left humeral head is noted with possible malalignment of the left glenohumeral joint. No pneumothorax or pleural effusion is present. There is no consolidation to suggest pneumonia. Pulmonary vascularity is normal. Cardiomediastinal silhouette is normal. IMPRESSION: 1. No acute cardiopulmonary findings. 2. Chronic deformity of the proximal left humerus with possible malalignment of the left glenohumeral joint which is suboptimally assessed on this exam. Electronically signed by: Akhil Russell M.D. 02/08/2017 8:16 PM Dictated Date/Time: 02/08/2017 8:15 PM
[2017-02-08 20:24] LABS: BASO % 0.5 %; BASO ABS # 0.02 K/uL (0-0.2); COMPLETE YES; HEMATOCRIT 47.1 % (42-52); IG% 0.2 %; LYMPH % 30.9 %; LYMPH ABS # 1.36 K/uL (1.2-3.4); MEAN CELL VOLUME 88.9 fL (80-100); MEAN CORPUSCULAR HEMOGLOBIN 30.9 pg (25-34); MEAN CORPUSCULAR HGB CONC 34.8 g/dl (32-36); MEAN PLATELET VOLUME 9.8 fL (7.4-10.4); MONO % 9.1 %; NEUT % 59.3 %; PLATELET COUNT 150 K/uL (130-400)
[2017-02-08] MEDS ORDERED: SODIUM CHLORIDE 0.9% 1000ML 1,000 ML IV STA (20:36)
[2017-02-08 21:00] LABS: PROTHROMBIN TIME (PATIENT) 11.2 SECONDS (9.0-12.0)
[2017-02-08] MEDS ORDERED: FoLIC ACID INJ 1 MG in SYRINGE 9.8 ML IV STA (21:29)
[2017-02-08] MEDS ORDERED: THIAMINE HCL 100 MG/ML 2 ML VIAL IV STA (21:29)
[2017-02-08] MEDS ORDERED: MULTIVITAMIN TAB PO STA (21:29)
[2017-02-08 21:30] LABS: ALB/GLOB RATIO 0.8 (0.9-2); ALKALINE PHOSPHATASE 64 U/L (45-117); ALT/SGPT 62 U/L (12-78); BLOOD UREA NITROGEN 10 mg/dl (7-18); BUN/CREATININE RATIO 11.8 (10-20); CALCIUM 8.6 mg/dl (8.5-10.1); CARBON DIOXIDE 21 mmol/L (21-32); CHLORIDE 105 mmol/L (98-107); CREATININE 0.83 mg/dl (0.60-1.40); GLUCOSE 92 mg/dl (70-99); SODIUM 140 mmol/L (136-145)
[2017-02-08] MEDS ORDERED: POLYETHYLENE (MIRALAX) 17 GM PACK PO PRN (22:00)
[2017-02-08] MEDS ORDERED: ONDANSETRON INJ 2 MG/ML 2 ML VIAL IV PRN (22:00)
[2017-02-08] MEDS ORDERED: ACETAMINOPHEN 325 MG TAB PO PRN (22:00)
[2017-02-08] MEDS ORDERED: LORAZEPAM 2 MG/ML 1 ML VIAL IV PRN (22:00)
[2017-02-08] MEDS ORDERED: ALUMINUM/MAGNESIUM/SIMETH (MAALOX MAX) 30 ML UDC PO PRN (22:00)
[2017-02-08] MEDS ORDERED: MAGNESIUM HYDROXIDE SUSP 30 ML UDC PO PRN (22:00)
[2017-02-08] MEDS ORDERED: THIAMINE HCL INJ 100 MG in SYRINGE 9 ML IV ONE (22:15)
[2017-02-08] MEDS ORDERED: FOLI1TAB7 PO (22:34)
[2017-02-08] MEDS ORDERED: THIA100T11 PO (22:35)
[2017-02-08] MEDS ORDERED: TRAZ50TA35 PO (22:36)
[2017-02-08] MEDS ORDERED: MAGN400T6 PO (22:38)
[2017-02-08] MEDS ORDERED: TRIA1SPR4 NAE (22:40)
--- NOTE | 2017-02-08 22:52 | History and Physical ---
History & Physical Date & Time of Service: Feb 08, 2017 at 22:33 Chief Complaint: Vertigo,Nausea,Shakes, Sob Primary Care Physician: No Doctor, Assigned History of Present Illness Source: patient 51 y/o M Hx ETOH abuse and withdrawal seizures - pt has been admitted multiple times for detox and continues to relapse. He states that he was recently doing well with outpt treatment at a center which then relocated leaving him without follow-up. He subsequently relapsed and has been drinking ~8 beers daily over the past few weeks. He presents requesting detox once again. He denies CP, SOB , N/V/D, fevers or confusion. He is exhibiting mild tremors. Past Medical/Surgical History Medical Problems: (1) Alcohol overdose Status: Resolved (2) Alcohol withdrawal Status: Resolved (3) Alcoholism Status: Chronic (4) Compression fracture of body of thoracic vertebra Status: Resolved (5) Compression fracture of L1 lumbar vertebra Status: Resolved (6) Hypokalemia Status: Resolved (7) Hypomagnesemia Status: Resolved Family History Cancer Diabetes mellitus Lung disease Social History States he drinks 8 beers daily - this may be a minimization of his intake Smoking Status: Never Smoker Smokeless Tobacco Use: No Drug Use: none Marital Status: in relationship Occupational Status: employed Multi-Drug Resistant Organisms History of MDRO: No Allergies Coded Allergies: No Known Allergies (Unverified , 12/23/16) Home Medications Scheduled Cholecalciferol (Vitamin D3), 2,000 INTER.UNIT PO DAILY Cyanocobalamin (Vitamin B12), 1,000 MCG PO DAILY Folic Acid (Folvite), 1 MG PO DAILY Magnesium Oxide (Mag-Ox), 400 MG PO BID Mirtazapine (Remeron), 15 MG PO HS Multivitamin (Multivitamin), 1 TAB PO DAILY Thiamine Hcl (Vitamin B-1), 100 MG PO BID Trazodone Hcl (Trazodone), 50 MG PO HS Review of Systems Constitutional: + problem reported (tremors), No fever, No chills, No sweats Eyes: No worsening of vision ENT: No hearing loss, No unusual epistaxis, No nasal symptoms Respiratory: No cough, No sputum, No wheezing Cardiovascular: No chest pain Abdomen: No pain, No nausea, No vomiting Musculoskeletal: No joint pain Genitourinary - Male: No hematuria, No dysuria Neurologic: No memory loss, No paralysis, No weakness Psychiatric: No depression symptoms Endocrine: No fatigue Hematologic / Lymphatic: No abnormal bleeding/bruising Integumentary: + rash (over face) Allergic / Immunologic: No environmental allergies Physical Exam Vital Signs Date Time Temp Pulse Resp B/P (MAP) Pulse Ox O2 Delivery O2 Flow Rate FiO2 02/08/17 19:49 83 02/08/17 19:34 36.4 88 18 164/99 98 Room Air General Appearance: + pertinent finding (Restless middle-aged male - no acute distress - AAO x 3) Head: normocephalic, atraumatic Eyes: normal inspection ENT: normal ENT inspection, pharynx normal Neck: supple, no JVD Respiratory/Chest: chest non-tender, lungs clear, normal breath sounds, no respiratory distress, no accessory muscle use Cardiovascular: regular rate, rhythm, no edema Abdomen/GI: normal bowel sounds, non tender, soft Back: normal inspection, no CVA tenderness, no muscle spasm, normal range of motion Extremities/Musculoskelatal: normal inspection 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, oriented x 3, + pertinent finding ( mild tremors present) Skin: + pertinent finding (exema-like appearance of skin over forehead) Diagnostics Laboratory Results Results Past 24 Hours Test 02/08/17 20:10 02/08/17 22:05 Range/Units White Blood Count 4.40 4.8-10.8 K/uL Red Blood Count 5.30 4.7-6.1 M/uL Hemoglobin 16.4 14.0-18.0 g/dL Hematocrit 47.1 42-52 % Mean Corpuscular Volume 88.9 80-100 fL Mean Corpuscular Hemoglobin 30.9 25-34 pg Mean Corpuscular Hemoglobin Concent 34.8 32-36 g/dl Platelet Count 150 130-400 K/uL Mean Platelet Volume 9.8 7.4-10.4 fL Neutrophils (%) (Auto) 59.3 % Lymphocytes (%) (Auto) 30.9 % Monocytes (%) (Auto) 9.1 % Eosinophils (%) (Auto) 0.0 % Basophils (%) (Auto) 0.5 % Neutrophils # (Auto) 2.61 1.4-6.5 K/uL Lymphocytes # (Auto) 1.36 1.2-3.4 K/uL Monocytes # (Auto) 0.40 0.11-0.59 K/uL Eosinophils # (Auto) 0.00 0-0.5 K/uL Basophils # (Auto) 0.02 0-0.2 K/uL RDW Standard Deviation 46.3 36.4-46.3 fL RDW Coefficient of Variation 14.2 11.5-14.5 % Immature Granulocyte % (Auto) 0.2 % Immature Granulocyte # (Auto) 0.01 0.00-0.02 K/uL Prothrombin Time 11.2 9.0-12.0 SECONDS Prothromb Time International Ratio 1.0 0.9-1.1 Activated Partial Thromboplast Time 25.1 21.0-31.0 SECONDS Partial Thromboplastin Ratio 1.0 Sodium Level 140 136-145 mmol/L Potassium Level 3.5-5.1 mmol/L Chloride Level 105 98-107 mmol/L Carbon Dioxide Level 21 21-32 mmol/L Anion Gap 14.0 3-11 mmol/L Blood Urea Nitrogen 10 7-18 mg/dl Creatinine 0.83 0.60-1.40 mg/dl Est Creatinine Clear Calc Drug Dose 101.2 ml/min Estimated GFR () 118.9 Estimated GFR (Non- 102.6 BUN/Creatinine Ratio 11.8 10-20 Random Glucose 92 70-99 mg/dl Calcium Level 8.6 8.5-10.1 mg/dl Total Bilirubin 1.1 0.2-1 mg/dl Aspartate Amino Transf (AST/SGOT) 15-37 U/L Alanine Aminotransferase (ALT/SGPT) 62 12-78 U/L Alkaline Phosphatase 64 45-117 U/L Total Protein 8.0 6.4-8.2 gm/dl Albumin 3.5 3.4-5.0 gm/dl Globulin 4.5 2.5-4.0 gm/dl Albumin/Globulin Ratio 0.8 0.9-2 Ethyl Alcohol mg/dL 9.0 0-3 mg/dl Impression Assessment and Plan 51 y/o M Hx ETOH abuse and withdrawal seizures - pt has been admitted multiple times for detox and continues to relapse. He states that he was recently doing well with outpt treatment at a center which then relocated leaving him without follow-up. He subsequently relapsed and has been drinking ~8 beers daily over the past few weeks. He presents requesting detox once again. He denies CP, SOB , N/V/D, fevers or confusion. He is exhibiting mild tremors. Pt is admitted for ETOH withdrawal - placed on IVF, daily banana bag, scheduled Librium and PRN Ativan - Pt will need a referral to an outpt or inpt treatment facility. Full code - SCDs Total time for this admit including review of labs, meds, records - discussion with pt and ER attending - 35 min Level of Care Telemetry Resuscitation Status FULL RESUSCITATION VTE Prophylaxis VTE Risk Assessment Done? Y/N: Yes Risk Level: Low Given or contraindicated: SCD's
[2017-02-08 22:59] LABS: MAGNESIUM 1.8 mg/dl (1.8-2.4)
--- NOTE | 2017-02-08 23:20 | EMERGENCY ROOM VISIT NOTE ---
History Report prepared by Kandi: Yue Wagner Under the Supervision of: Dr. Orion Diaz D.O. First contact with patient: 19:46 Chief Complaint: DIZZY Stated Complaint: VERTIGO,NAUSEA,SHAKES, SOB History of Present Illness The patient is a 51 year old male who presents to the Emergency Room with complaints of persistent ETOH withdrawal symptoms. He has a history of alcohol abuse for the past 5 years and reports he is currently trying to stop drinking. He normally drinks 6 to 10 beers in a day and for the past 1 month, he has been drinking heavily every day. His last drink was around 0300 this morning. He complains of the shakes, vertigo, a headache, nausea, dry heaves, shortness of breath and increased anxiety. 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 He admits he has experienced seizures in the past when he's tried to quit drinking. The patient denies any change in vision, fevers, chest pain, vomiting , diarrhea, pain with urination, and melena. His most recent PCP was Dr. Leonard at [facility]. Source of History: patient Onset: 0300 this morning Position: other (global) Quality: other (ETOH withdrawal symptoms) Timing: other (persistent) Associated Symptoms: + headache, + SOB, + nausea, No fevers, No chest pain, No vomiting, No melena, No diarrhea, No urinary symptoms Review of Systems See HPI for pertinent positives & negatives. A total of 10 systems reviewed and were otherwise negative. Past Medical & Surgical Medical Problems: (1) Alcohol overdose (2) Alcohol withdrawal (3) Alcohol withdrawal (4) Alcoholism (5) Compression fracture of body of thoracic vertebra (6) Compression fracture of L1 lumbar vertebra (7) Hypokalemia (8) Hypomagnesemia (9) Seizure-like activity Family History Cancer Diabetes mellitus Lung disease Social History Smoking Status: Never Smoker Alcohol Use: heavy Drug Use: none Marital Status: in relationship Housing Status: lives with significant other Occupation Status: employed Current/Historical Medications Scheduled Cholecalciferol (Vitamin D3), 2,000 INTER.UNIT PO DAILY Cyanocobalamin (Vitamin B12), 1,000 MCG PO DAILY Folic Acid (Folvite), 1 MG PO DAILY Magnesium Oxide (Mag-Ox), 400 MG PO BID Mirtazapine (Remeron), 15 MG PO HS Multivitamin (Multivitamin), 1 TAB PO DAILY Thiamine Hcl (Vitamin B-1), 100 MG PO BID Trazodone Hcl (Trazodone), 50 MG PO HS Scheduled PRN Triamcinolone Acetonide (Nasal (Nasacort Allergy 24Hr), 1 SPRAY PRANAY BID PRN for ALLERGIC REACTION Allergies Coded Allergies: No Known Allergies (Unverified , 12/23/16) Physical Exam Vital Signs Date Time Temp Pulse Resp B/P (MAP) Pulse Ox O2 Delivery O2 Flow Rate FiO2 02/08/17 21:56 101 14 98 02/08/17 21:31 146/110 02/08/17 21:26 96 10 97 02/08/17 21:22 148/106 02/08/17 20:56 92 18 96 02/08/17 20:26 76 15 152/102 02/08/17 19:56 77 12 02/08/17 19:49 83 02/08/17 19:34 36.4 88 18 164/99 98 Room Air Physical Exam GENERAL: Patient is sitting up in bed, alert, disheveled appearing, well nourished, no distress, non-toxic EYE EXAM: normal conjunctiva, PERRL and EOM's grossly intact OROPHARYNX: no exudate, no erythema, lips, buccal mucosa, and tongue normal and mucous membranes are moist NECK: supple, no nuchal rigidity, no adenopathy, non-tender LUNGS: Clear to auscultation. Normal chest wall mechanics HEART: no murmurs, S1 normal and S2 normal ABDOMEN: abdomen soft, non-tender, normo-active bowel sounds, no masses, no rebound or guarding. BACK: Back is symmetrical on inspection and there is no deformity, no midline tenderness, no CVA tenderness. SKIN: no rashes and no bruising UPPER EXTREMITIES: upper extremities are grossly normal. Shaking noted in upper extremities. LOWER EXTREMITIES: No pitting edema. NEURO EXAM: Normal sensorium, cranial nerves II-XII intact, normal speech, no weakness of arms, no weakness of legs. Gross sensation intact. Tremors in the upper extremities. Medical Decision & Procedures ER Provider Diagnostic Interpretation: Radiology results as stated below per my review and the radiologist's interpretation: CHEST ONE VIEW PORTABLE CLINICAL HISTORY: Chest pain. COMPARISON STUDY: Chest radiograph December 23, 2016. FINDINGS: Old deformity of the proximal left humeral head is noted with possible malalignment of the left glenohumeral joint. No pneumothorax or pleural effusion is present. There is no consolidation to suggest pneumonia. Pulmonary vascularity is normal. Cardiomediastinal silhouette is normal. IMPRESSION: 1. No acute cardiopulmonary findings. 2. Chronic deformity of the proximal left humerus with possible malalignment of the left glenohumeral joint which is suboptimally assessed on this exam. Electronically signed by: Akhil Russell M.D. 02/08/2017 8:16 PM Laboratory Results 02/08/17 20:10 Red Blood Count 5.30, Mean Corpuscular Volume 88.9, Mean Corpuscular Hemoglobin 30.9, Mean Corpuscular Hemoglobin Concent 34.8, Mean Platelet Volume 9.8, Neutrophils (%) (Auto) 59.3, Lymphocytes (%) (Auto) 30.9, Monocytes (%) (Auto) 9.1, Eosinophils (%) (Auto) 0.0, Basophils (%) (Auto) 0.5, Neutrophils # (Auto) 2.61, Lymphocytes # (Auto) 1.36, Monocytes # (Auto) 0.40, Eosinophils # (Auto) 0.00, Basophils # (Auto) 0.02 02/08/17 20:10 Test 02/08/17 20:10 White Blood Count 4.40 K/uL (4.8-10.8) Red Blood Count 5.30 M/uL (4.7-6.1) Hemoglobin 16.4 g/dL (14.0-18.0) Hematocrit 47.1 % (42-52) Mean Corpuscular Volume 88.9 fL (80-100) Mean Corpuscular Hemoglobin 30.9 pg (25-34) Mean Corpuscular Hemoglobin Concent 34.8 g/dl (32-36) Platelet Count 150 K/uL (130-400) Mean Platelet Volume 9.8 fL (7.4-10.4) Neutrophils (%) (Auto) 59.3 % Lymphocytes (%) (Auto) 30.9 % Monocytes (%) (Auto) 9.1 % Eosinophils (%) (Auto) 0.0 % Basophils (%) (Auto) 0.5 % Neutrophils # (Auto) 2.61 K/uL (1.4-6.5) Lymphocytes # (Auto) 1.36 K/uL (1.2-3.4) Monocytes # (Auto) 0.40 K/uL (0.11-0.59) Eosinophils # (Auto) 0.00 K/uL (0-0.5) Basophils # (Auto) 0.02 K/uL (0-0.2) RDW Standard Deviation 46.3 fL (36.4-46.3) RDW Coefficient of Variation 14.2 % (11.5-14.5) Immature Granulocyte % (Auto) 0.2 % Immature Granulocyte # (Auto) 0.01 K/uL (0.00-0.02) Prothrombin Time 11.2 SECONDS (9.0-12.0) Prothromb Time International Ratio 1.0 (0.9-1.1) Activated Partial Thromboplast Time 25.1 SECONDS (21.0-31.0) Partial Thromboplastin Ratio 1.0 Anion Gap 14.0 mmol/L (3-11) Est Creatinine Clear Calc Drug Dose 101.2 ml/min Estimated GFR () 118.9 Estimated GFR (Non- 102.6 BUN/Creatinine Ratio 11.8 (10-20) Calcium Level 8.6 mg/dl (8.5-10.1) Total Bilirubin 1.1 mg/dl (0.2-1) Alanine Aminotransferase (ALT/SGPT) 62 U/L (12-78) Alkaline Phosphatase 64 U/L (45-117) Total Protein 8.0 gm/dl (6.4-8.2) Albumin 3.5 gm/dl (3.4-5.0) Globulin 4.5 gm/dl (2.5-4.0) Albumin/Globulin Ratio 0.8 (0.9-2) Ethyl Alcohol mg/dL 9.0 mg/dl (0-3) Laboratory results per my review. Medications Administered Medications (Trade) Dose Ordered Sig/Dyan Route Start Time Stop Time Status Last Admin Dose Admin Lorazepam (Ativan Inj) 1 mg NOW STAT IV 02/08/17 19:52 02/08/17 19:56 DC 02/08/17 20:25 1 MG Ondansetron HCl (Zofran Inj) 4 mg NOW STAT IV 02/08/17 20:04 02/08/17 20:05 DC 02/08/17 20:25 4 MG Sodium Chloride 1,000 ml @ 999 mls/hr Q1H1M STAT IV 02/08/17 20:36 02/08/17 21:36 DC 02/08/17 20:36 999 MLS/HR Multivitamins (Multivitamin Tab) 1 tab NOW STAT PO 02/08/17 21:29 02/08/17 21:30 DC 02/08/17 22:07 1 TAB Folic Acid 1 mg/ Syringe 10 ml @ 5 mls/min NOW STAT IV 02/08/17 21:29 02/08/17 21:30 DC 02/08/17 22:29 5 MLS/MIN Lorazepam (Ativan Inj) 1 mg NOW STAT IV 02/08/17 21:45 02/08/17 21:46 DC 02/08/17 22:07 1 MG ECG Indication: other (ETOH withdrawal) Rate (beats per minute): 83 Rhythm: sinus rhythm Findings: no ectopy, other (normal axis) ED Course ED COURSE: Vital signs were reviewed and showed the patient is hypertensive. The patients medical record was reviewed The above diagnostic studies were performed and reviewed. ED treatments and interventions as stated above. 1951: Ativan 1 mg IV. 2003: Zofran 4 mg IV. 2026: The patient was evaluated in room B10. A complete history and physical examination was performed. 2034: Upon reevaluation, the patient is resting comfortably. I discussed my findings with the patient and he understands and agrees with the treatment plan. 2035: NSS 1000 ml @ 999 mls/hr IV. 2128: Folic Acid 1 mg/Syringe 10 ml @ 5 mls/min IV, Multivitamins 1 tab PO. 2144: Ativan 1 mg IV. 2146: I discussed the patients case with Dr. Diego, [facility] Hospitalist. The patient will be further evaluated. Based on the patients age, coexisting illnesses, exam and lab findings the decision to treat as an inpatient was made. The patient remained stable while under my care. The patient will be evaluated for further management. Medical Decision Differential diagnosis includes etiologies such as benign positional vertigo, dehydration, hypovolemia, anemia, tumor, infection, hypoglycemia, electrolyte abnormalities, cardiac sources, intracerebral event, toxicologic, neurologic, as well as others were entertained. Patient is a 51-year-old male who presents the ER for alcohol withdrawal. He has been drinking for the past 5 years. He drinks 6-10 beers a day. He recently started back up over a month ago. He admits to nausea vomiting. Last drink was at 3 AM. He has been shaking for the past several hours. He has a history of alcohol withdrawal seizures. CBC along with BMP, LFTs and bilirubin was unremarkable. Magnesium was 1.8. Alcohol was 9. Chest x-ray with no focal infiltrate. He was completely neurologically intact. He had no dizziness on my exam. Patient was given 2 doses of Ativan, folic acid, multivitamin and thiamine. He was given a bolus normal saline. He still had persistent tremors. Case discussed with internal medicine and was minute for a whole withdrawal. Medication Reconcilliation Current Medication List: was personally reviewed by me Blood Pressure Screening Patient's blood pressure: Elevated blood pressure Blood pressure disposition: Elevated BP felt to be situational Consults Time Called: 2144 Consulting Physician: Dr. Diego, [facility] Hospitalist Returned Call: 2146 I discussed the patients case with Dr. Diego, [facility] Hospitalist. The patient will be further evaluated. Impression Primary Impression: Alcohol withdrawal Scribe Attestation The scribe's documentation has been prepared under my direction and personally reviewed by me in its entirety. I confirm that the note above accurately reflects all work, treatment, procedures, and medical decision making performed by me. Departure Information Dispostion Being Evaluated By Hospitalist Referrals No Doctor, Assigned (PCP) Patient Instructions My [facility] Problem Qualifiers Primary Impression: Alcohol withdrawal Complication of substance-induced condition: uncomplicated Qualified Codes: F10.230 - Alcohol dependence with withdrawal, uncomplicated
[2017-02-08] MEDS ORDERED: MULTI-VITAMIN INFUSION INJ 10 ML, THIAMINE HCL INJ 100 MG, FoLIC ACID INJ 1 MG in SODIU... IV ONE (23:30)
[2017-02-08] MEDS: CHLORDIAZEPOXIDE 10 MG CAP PO SCH (23:49)
[2017-02-09] VITALS (10 sets, daily range): BP systolic 126–161; BP diastolic 77–101; PULSE 78–104; TEMP 36–37.2; O2SAT 92–97; Ht 162.6 cm; Wt 79.0 kg
[2017-02-09 00:36] LABS: BENZODIAZEPINE, URINE NEG (NEG); COCAINE,URINE NEG (NEG); PHENCYCLIDINE, URINE NEG (NEG)
[2017-02-09] MEDS: LORAZEPAM 2 MG/ML 1 ML VIAL IV PRN ×6 (01:08→23:21)
[2017-02-09] MEDS: D5NSS + 20MEQ KCL 1,000 ML IV SCH ×2 (05:48→17:16)
[2017-02-09] MEDS: CYANOCOBALAMIN 500 MCG TAB (VIT B-12) PO SCH (08:16)
[2017-02-09] MEDS: MAGNESIUM OXIDE 400 MG TAB PO SCH ×2 (08:16→20:44)
[2017-02-09] MEDS: MULTIVITAMIN TAB PO SCH (08:16)
[2017-02-09] MEDS: CHOLECALCIFEROL 1000 INTER.UNIT TAB PO SCH (08:17)
[2017-02-09] MEDS: CHLORDIAZEPOXIDE 10 MG CAP PO SCH ×3 (08:21→23:21)
[2017-02-09] MEDS: METOPROLOL TARTRATE 25 MG TAB PO SCH ×3 (08:22→20:45)
[2017-02-09] MEDS: MULTI-VITAMIN INFUSION INJ 10 ML, THIAMINE HCL INJ 100 MG, FoLIC ACID INJ 1 MG in SODIU... IV SCH (09:07)
--- NOTE | 2017-02-09 18:32 | Progress Note ---
Subjective Date of Service: Feb 09, 2017. Subjective Pt evaluation today including: conversation w/ patient, physical exam, chart review, lab review, review of inpatient medication list Problem List Medical Problems: (1) Alcohol abuse Status: Acute (2) Alcohol intoxication Status: Acute (3) Alcohol withdrawal Status: Acute (4) Alcohol withdrawal Status: Acute (5) Alcohol withdrawal Status: Acute (6) Alcohol withdrawal Status: Acute (7) Alcohol withdrawal Status: Acute (8) Alcoholic Status: Acute (9) Alcoholic hepatitis Status: Acute (10) Anxiety Status: Acute (11) Anxiety Status: Acute (12) Atrial fibrillation with RVR Status: Acute (13) Chest pain Status: Acute (14) Chest pain Status: Acute (15) Dehydration Status: Acute (16) Elevated LFTs Status: Acute (17) Facial laceration Status: Acute (18) Fall Status: Acute (19) High anion gap metabolic acidosis Status: Acute (20) Hypokalemia Status: Acute (21) Hypophosphatemia Status: Acute (22) Lip laceration Status: Acute (23) Malnutrition Status: Acute (24) Seizure Status: Acute (25) Thrombocytopenia Status: Acute Review of Systems Constitutional: No see HPI, No fever, No chills, No sweats, No weight loss, No weakness, No fatigue, No problem reported Eyes: No see HPI, No worsening of vision, No eye pain, No redness, No discharge , No diplopia, No problem reported ENT: No see HPI, No hearing loss, No unusual epistaxis, No nasal symptoms, No sore throat, No tinnitus, No dental problems, No trouble swallowing, No problem reported Respiratory: No see HPI, No cough, No sputum, No wheezing, No shortness of breath, No dyspnea on exertion, No dyspnea at rest, No hemoptysis, No problem reported Cardiac: No see HPI, No chest pain, No orthopnea, No PND, No edema, No claudication, No palpitations, No problem reported Abdomen: No see HPI, No pain, No nausea, No vomiting, No diarrhea, No constipation, No GI bleeding, No problem reported Musculoskeletal: No see HPI, No joint pain, No muscle pain, No swelling, No calf pain, No problem reported Male : No see HPI, No dysuria, No urinary frequency, No incontinence, No nocturia more than once/night, No slowing stream, No hematuria, No sexual dysfunction, No problem reported Neurologic: + problem reported (tremors, shaking), No see HPI, No memory loss, No paralysis, No weakness, No numbness/tingling, No vertigo, No balance problems Psychiatric: + substance abuse, No see HPI, No depression symptoms, No anhedonism, No anxiety, No insomnia, No problem reported Heme: No see HPI, No abnormal bleeding/bruising, No clotting problems, No swollen lymph nodes, No night sweats, No problem reported Endo: No see HPI, No fatigue, No excessive thirst, No excessive urination, No problem reported Skin: No see HPI, No rash, No itch, No new/changing skin lesions, No color change, No bleeding, No problem reported Objective Vital Signs Date Time Temp Pulse Resp B/P (MAP) Pulse Ox O2 Delivery O2 Flow Rate FiO2 02/09/17 16:03 96 Room Air 02/09/17 15:10 36.7 80 19 144/90 (108) 96 Room Air 02/09/17 13:36 80 130/87 (101) 02/09/17 12:00 Room Air 02/09/17 11:31 37.0 79 16 149/94 (112) 96 Room Air 02/09/17 08:07 36.9 78 16 142/96 (111) 96 Room Air 02/09/17 08:00 Room Air 02/09/17 04:00 Room Air 02/09/17 03:52 37.2 86 18 143/93 (110) 94 Room Air 02/09/17 02:18 36.7 103 20 161/101 92 Room Air 02/08/17 22:44 36.4 93 14 157/98 98 02/08/17 22:31 157/98 02/08/17 22:26 93 98 02/08/17 22:01 162/105 02/08/17 21:56 101 14 98 02/08/17 21:31 146/110 02/08/17 21:26 96 10 97 02/08/17 21:22 148/106 02/08/17 20:56 92 18 96 02/08/17 20:26 76 15 152/102 02/08/17 19:56 77 12 02/08/17 19:49 83 02/08/17 19:34 36.4 88 18 164/99 98 Room Air Physical Exam General Appearance: WD/WN, + mild distress Eyes: normal inspection, EOMI ENT: normal ENT inspection, hearing grossly normal Neck: supple Respiratory/Chest: chest non-tender, lungs clear, normal breath sounds, no respiratory distress, no accessory muscle use Cardiovascular: regular rate, rhythm, no edema, no gallop, no JVD, no murmur Abdomen: normal bowel sounds, non tender, soft, no organomegaly, no pulsatile mass Extremities: normal range of motion, non-tender, normal inspection, no pedal edema, no calf tenderness 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, no motor/sensory deficits, alert, normal mood/affect, oriented x 3 Skin: normal color, warm/dry, no rash Laboratory Results Last 24 Hours Test 02/08/17 20:10 02/08/17 22:05 02/08/17 23:15 White Blood Count 4.40 K/uL Red Blood Count 5.30 M/uL Hemoglobin 16.4 g/dL Hematocrit 47.1 % Mean Corpuscular Volume 88.9 fL Mean Corpuscular Hemoglobin 30.9 pg Mean Corpuscular Hemoglobin Concent 34.8 g/dl Platelet Count 150 K/uL Mean Platelet Volume 9.8 fL Neutrophils (%) (Auto) 59.3 % Lymphocytes (%) (Auto) 30.9 % Monocytes (%) (Auto) 9.1 % Eosinophils (%) (Auto) 0.0 % Basophils (%) (Auto) 0.5 % Neutrophils # (Auto) 2.61 K/uL Lymphocytes # (Auto) 1.36 K/uL Monocytes # (Auto) 0.40 K/uL Eosinophils # (Auto) 0.00 K/uL Basophils # (Auto) 0.02 K/uL RDW Standard Deviation 46.3 fL RDW Coefficient of Variation 14.2 % Immature Granulocyte % (Auto) 0.2 % Immature Granulocyte # (Auto) 0.01 K/uL Prothrombin Time 11.2 SECONDS Prothromb Time International Ratio 1.0 Activated Partial Thromboplast Time 25.1 SECONDS Partial Thromboplastin Ratio 1.0 Sodium Level 140 mmol/L Potassium Level mmol/L 4.0 mmol/L Chloride Level 105 mmol/L Carbon Dioxide Level 21 mmol/L Anion Gap 14.0 mmol/L Blood Urea Nitrogen 10 mg/dl Creatinine 0.83 mg/dl Est Creatinine Clear Calc Drug Dose 101.2 ml/min Estimated GFR () 118.9 Estimated GFR (Non- 102.6 BUN/Creatinine Ratio 11.8 Random Glucose 92 mg/dl Calcium Level 8.6 mg/dl Total Bilirubin 1.1 mg/dl Aspartate Amino Transf (AST/SGOT) U/L 126 U/L Alanine Aminotransferase (ALT/SGPT) 62 U/L Alkaline Phosphatase 64 U/L Total Protein 8.0 gm/dl Albumin 3.5 gm/dl Globulin 4.5 gm/dl Albumin/Globulin Ratio 0.8 Ethyl Alcohol mg/dL 9.0 mg/dl Magnesium Level 1.8 mg/dl Chemistry Specimen Hemolysis Urine Opiates Screen NEG Urine Methadone, Qualitative NEG Urine Barbiturates NEG Urine Phencyclidine (PCP) Level NEG Ur Amphetamine/Methamphetamine NEG MDMA (Ecstasy) Screen NEG Urine Benzodiazepines Screen NEG Urine Cocaine Metabolite NEG Urine Marijuana (THC) NEG Assessment and Plan 51 years old man with history of ethanol abuse was treated multiple times for his addiction. Most recently he was doing well with an outpatient rehabilitation center, as per patient due to relocation [facility] and started drinking again. Presented for alcohol withdrawal. Clinical abuse/withdrawal Continue banana bag Continue folic acid and thiamine supplement Continue Librium and Ativan when necessary Hypertension Continue metoprolol DVT prophylaxis/heparin subcutaneous
[2017-02-09] MEDS: MIRTAZAPINE TAB 15 MG TAB PO SCH (20:44)
[2017-02-09] MEDS: HEPARIN SOD 5000 UNIT/0.5 ML CARP SQ SCH (21:05)
[2017-02-10] MEDS: LORAZEPAM 2 MG/ML 1 ML VIAL IV PRN ×3 (03:13→11:51)
[2017-02-10 03:40] VITALS: BP 137/92; PULSE 75; TEMP 36.3; O2SAT 98
[2017-02-10] MEDS: D5NSS + 20MEQ KCL 1,000 ML IV SCH (05:58)
[2017-02-10] MEDS: HEPARIN SOD 5000 UNIT/0.5 ML CARP SQ SCH ×3 (06:01→22:00)
[2017-02-10 06:03] LABS: BASO % 0.4 %; BASO ABS # 0.02 K/uL (0-0.2); COMPLETE YES; HEMATOCRIT 43.1 % (42-52); IG% 0.4 %; LYMPH % 32.4 %; LYMPH ABS # 1.56 K/uL (1.2-3.4); MEAN CELL VOLUME 90.9 fL (80-100); MEAN CORPUSCULAR HEMOGLOBIN 31.2 pg (25-34); MEAN CORPUSCULAR HGB CONC 34.3 g/dl (32-36); MEAN PLATELET VOLUME 9.8 fL (7.4-10.4); MONO % 15.8 %; PLATELET COUNT 138 K/uL (130-400); RED BLOOD COUNT 4.74 M/uL (4.7-6.1); WHITE BLOOD COUNT 4.81 K/uL (4.8-10.8)
[2017-02-10 06:57] LABS: ALB/GLOB RATIO 0.7 (0.9-2); BUN/CREATININE RATIO 10.1 (10-20); CALCIUM 8.3 mg/dl (8.5-10.1); CREATININE 0.8 mg/dl (0.60-1.40); MAGNESIUM 1.8 mg/dl (1.8-2.4); PHOSPHORUS 2.6 mg/dl (2.5-4.9); POTASSIUM 3.4 mmol/L (3.5-5.1)
[2017-02-10] MEDS: CHLORDIAZEPOXIDE 10 MG CAP PO SCH (07:03)
[2017-02-10 07:42] VITALS: BP 149/97; PULSE 73; TEMP 36.7; O2SAT 97
[2017-02-10] MEDS: MAGNESIUM OXIDE 400 MG TAB PO SCH ×2 (07:57→20:27)
[2017-02-10] MEDS: METOPROLOL TARTRATE 25 MG TAB PO SCH ×3 (07:57→20:28)
[2017-02-10] MEDS: CYANOCOBALAMIN 500 MCG TAB (VIT B-12) PO SCH (07:57)
[2017-02-10] MEDS: MULTIVITAMIN TAB PO SCH (07:57)
[2017-02-10] MEDS: CHOLECALCIFEROL 1000 INTER.UNIT TAB PO SCH (07:57)
[2017-02-10 11:28] VITALS: BP 129/86; PULSE 77; TEMP 36.6; O2SAT 95
[2017-02-10] MEDS: MULTI-VITAMIN INFUSION INJ 10 ML, THIAMINE HCL INJ 100 MG, FoLIC ACID INJ 1 MG in SODIU... IV SCH (11:31)
--- NOTE | 2017-02-10 14:32 | Progress Note ---
Subjective Date of Service: Feb 10, 2017. Subjective Pt evaluation today including: conversation w/ patient, physical exam, chart review, lab review, review of inpatient medication list Problem List Medical Problems: (1) Alcohol abuse Status: Acute (2) Alcohol intoxication Status: Acute (3) Alcohol withdrawal Status: Acute (4) Alcohol withdrawal Status: Acute (5) Alcohol withdrawal Status: Acute (6) Alcohol withdrawal Status: Acute (7) Alcohol withdrawal Status: Acute (8) Alcoholic Status: Acute (9) Alcoholic hepatitis Status: Acute (10) Anxiety Status: Acute (11) Anxiety Status: Acute (12) Atrial fibrillation with RVR Status: Acute (13) Chest pain Status: Acute (14) Chest pain Status: Acute (15) Dehydration Status: Acute (16) Elevated LFTs Status: Acute (17) Facial laceration Status: Acute (18) Fall Status: Acute (19) High anion gap metabolic acidosis Status: Acute (20) Hypokalemia Status: Acute (21) Hypophosphatemia Status: Acute (22) Lip laceration Status: Acute (23) Malnutrition Status: Acute (24) Seizure Status: Acute (25) Thrombocytopenia Status: Acute Review of Systems Constitutional: No see HPI, No fever, No chills, No sweats, No weight loss, No weakness, No fatigue, No problem reported Eyes: No see HPI, No worsening of vision, No eye pain, No redness, No discharge , No diplopia, No problem reported ENT: No see HPI, No hearing loss, No unusual epistaxis, No nasal symptoms, No sore throat, No tinnitus, No dental problems, No trouble swallowing, No problem reported Respiratory: No see HPI, No cough, No sputum, No wheezing, No shortness of breath, No dyspnea on exertion, No dyspnea at rest, No hemoptysis, No problem reported Cardiac: No see HPI, No chest pain, No orthopnea, No PND, No edema, No claudication, No palpitations, No problem reported Abdomen: No see HPI, No pain, No nausea, No vomiting, No diarrhea, No constipation, No GI bleeding, No problem reported Musculoskeletal: No see HPI, No joint pain, No muscle pain, No swelling, No calf pain, No problem reported Male : No see HPI, No dysuria, No urinary frequency, No incontinence, No nocturia more than once/night, No slowing stream, No hematuria, No sexual dysfunction, No problem reported Neurologic: + problem reported (tremors / anxiety), No see HPI, No memory loss , No paralysis, No weakness, No numbness/tingling, No vertigo, No balance problems Psychiatric: No see HPI, No depression symptoms, No anhedonism, No anxiety, No insomnia, No substance abuse, No problem reported Heme: No see HPI, No abnormal bleeding/bruising, No clotting problems, No swollen lymph nodes, No night sweats, No problem reported Endo: No see HPI, No fatigue, No excessive thirst, No excessive urination, No problem reported Skin: No see HPI, No rash, No itch, No new/changing skin lesions, No color change, No bleeding, No problem reported Objective Vital Signs Date Time Temp Pulse Resp B/P (MAP) Pulse Ox O2 Delivery O2 Flow Rate FiO2 02/10/17 12:00 Room Air 02/10/17 11:28 36.6 77 18 129/86 (100) 95 Room Air 02/10/17 08:00 Room Air 02/10/17 07:42 36.7 73 18 149/97 (114) 97 Room Air 02/10/17 04:00 Room Air 02/10/17 03:40 36.3 75 18 137/92 (107) 98 Room Air 02/10/17 00:00 Room Air 02/09/17 23:51 37.1 83 19 126/77 (93) 96 Room Air 02/09/17 20:00 Room Air 02/09/17 19:15 82 141/93 (109) 02/09/17 19:03 36.0 104 19 97 Room Air 02/09/17 16:03 96 Room Air 02/09/17 15:10 36.7 80 19 144/90 (108) 96 Room Air Physical Exam General Appearance: WD/WN, no apparent distress Eyes: normal inspection, EOMI ENT: normal ENT inspection, hearing grossly normal Neck: supple Respiratory/Chest: chest non-tender, lungs clear, normal breath sounds, no respiratory distress, no accessory muscle use Cardiovascular: regular rate, rhythm, no edema, no gallop, no JVD, no murmur Abdomen: normal bowel sounds, non tender, soft, no organomegaly Extremities: normal range of motion, non-tender, normal inspection, no pedal edema 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, no motor/sensory deficits, alert, normal mood/affect, oriented x 3 Skin: normal color, warm/dry, no rash Laboratory Results Last 24 Hours Test 02/10/17 05:22 White Blood Count 4.81 K/uL Red Blood Count 4.74 M/uL Hemoglobin 14.8 g/dL Hematocrit 43.1 % Mean Corpuscular Volume 90.9 fL Mean Corpuscular Hemoglobin 31.2 pg Mean Corpuscular Hemoglobin Concent 34.3 g/dl Platelet Count 138 K/uL Mean Platelet Volume 9.8 fL Neutrophils (%) (Auto) 50.0 % Lymphocytes (%) (Auto) 32.4 % Monocytes (%) (Auto) 15.8 % Eosinophils (%) (Auto) 1.0 % Basophils (%) (Auto) 0.4 % Neutrophils # (Auto) 2.40 K/uL Lymphocytes # (Auto) 1.56 K/uL Monocytes # (Auto) 0.76 K/uL Eosinophils # (Auto) 0.05 K/uL Basophils # (Auto) 0.02 K/uL RDW Standard Deviation 47.8 fL RDW Coefficient of Variation 14.4 % Immature Granulocyte % (Auto) 0.4 % Immature Granulocyte # (Auto) 0.02 K/uL Sodium Level 139 mmol/L Potassium Level 3.4 mmol/L Chloride Level 106 mmol/L Carbon Dioxide Level 24 mmol/L Anion Gap 9.0 mmol/L Blood Urea Nitrogen 8 mg/dl Creatinine 0.80 mg/dl Est Creatinine Clear Calc Drug Dose 105.0 ml/min Estimated GFR () 120.7 Estimated GFR (Non- 104.2 BUN/Creatinine Ratio 10.1 Random Glucose 87 mg/dl Calcium Level 8.3 mg/dl Phosphorus Level 2.6 mg/dl Magnesium Level 1.8 mg/dl Total Bilirubin 1.7 mg/dl Aspartate Amino Transf (AST/SGOT) 60 U/L Alanine Aminotransferase (ALT/SGPT) 43 U/L Alkaline Phosphatase 62 U/L Total Protein 6.8 gm/dl Albumin 2.9 gm/dl Globulin 3.9 gm/dl Albumin/Globulin Ratio 0.7 Assessment and Plan 51 years old man with history of ethanol abuse was treated multiple times for his addiction. Most recently he was doing well with an outpatient rehabilitation center, as per patient due to relocation he fell off the [employer] and started drinking again. Presented for alcohol withdrawal. Clinical abuse/withdrawal Continue banana bag Continue folic acid and thiamine supplement Decrease the dose and frequency of Librium and Ativan Switch Ativan to oral internalization of discharge Hypertension Continue metoprolol DVT prophylaxis/heparin subcutaneous
[2017-02-10 15:29] VITALS: BP 145/92; PULSE 69; TEMP 36.9; O2SAT 97
[2017-02-10] MEDS: LORAZEPAM 2 MG TAB PO PRN (15:37)
[2017-02-10 19:43] VITALS: BP 152/95; PULSE 78; TEMP 37.1; O2SAT 97
[2017-02-10] MEDS: CHLORDIAZEPOXIDE 5 MG CAP PO SCH (20:26)
[2017-02-10] MEDS: MIRTAZAPINE TAB 15 MG TAB PO SCH (20:28)
[2017-02-11] VITALS (7 sets, daily range): BP systolic 123–149; BP diastolic 79–94; PULSE 68–86; TEMP 36.4–37; O2SAT 93–97
[2017-02-11] MEDS: LORAZEPAM 2 MG TAB PO PRN ×2 (04:06→17:50)
[2017-02-11] MEDS: HEPARIN SOD 5000 UNIT/0.5 ML CARP SQ SCH ×3 (06:00→21:32)
[2017-02-11 06:26] LABS: BASO % 0.5 %; BASO ABS # 0.03 K/uL (0-0.2); COMPLETE YES; EOS % 1.1 %; HEMATOCRIT 43.6 % (42-52); IG% 0.5 %; LYMPH % 28.3 %; LYMPH ABS # 1.81 K/uL (1.2-3.4); MEAN CELL VOLUME 91.4 fL (80-100); MEAN CORPUSCULAR HEMOGLOBIN 31.4 pg (25-34); MEAN CORPUSCULAR HGB CONC 34.4 g/dl (32-36); MONO % 16.4 %; NEUT % 53.2 %; PLATELET COUNT 159 K/uL (130-400); RED BLOOD COUNT 4.77 M/uL (4.7-6.1)
[2017-02-11 07:10] LABS: ALB/GLOB RATIO 0.7 (0.9-2); BUN/CREATININE RATIO 10.1 (10-20); CREATININE 0.92 mg/dl (0.60-1.40); MAGNESIUM 2.1 mg/dl (1.8-2.4); POTASSIUM 3.1 mmol/L (3.5-5.1)
[2017-02-11] MEDS: CHLORDIAZEPOXIDE 5 MG CAP PO SCH ×2 (07:12→19:51)
[2017-02-11] MEDS: CYANOCOBALAMIN 500 MCG TAB (VIT B-12) PO SCH (07:47)
[2017-02-11] MEDS: METOPROLOL TARTRATE 25 MG TAB PO SCH ×3 (07:47→19:52)
[2017-02-11] MEDS: CHOLECALCIFEROL 1000 INTER.UNIT TAB PO SCH (07:48)
[2017-02-11] MEDS: MAGNESIUM OXIDE 400 MG TAB PO SCH ×2 (07:48→19:51)
[2017-02-11] MEDS: MULTIVITAMIN TAB PO SCH (07:48)
[2017-02-11] MEDS: MULTI-VITAMIN INFUSION INJ 10 ML, THIAMINE HCL INJ 100 MG, FoLIC ACID INJ 1 MG in SODIU... IV SCH (08:16)
[2017-02-11] MEDS ORDERED: COUGH DROP (SUGAR FREE) LOZ 24 LOZ/1 BOX ONE (08:56)
--- NOTE | 2017-02-11 16:02 | Progress Note ---
Subjective Date of Service: Feb 11, 2017. Subjective Pt evaluation today including: conversation w/ patient, physical exam, chart review, lab review, review of inpatient medication list Problem List Medical Problems: (1) Alcohol abuse Status: Acute (2) Alcohol intoxication Status: Acute (3) Alcohol withdrawal Status: Acute (4) Alcohol withdrawal Status: Acute (5) Alcohol withdrawal Status: Acute (6) Alcohol withdrawal Status: Acute (7) Alcohol withdrawal Status: Acute (8) Alcoholic Status: Acute (9) Alcoholic hepatitis Status: Acute (10) Anxiety Status: Acute (11) Anxiety Status: Acute (12) Atrial fibrillation with RVR Status: Acute (13) Chest pain Status: Acute (14) Chest pain Status: Acute (15) Dehydration Status: Acute (16) Elevated LFTs Status: Acute (17) Facial laceration Status: Acute (18) Fall Status: Acute (19) High anion gap metabolic acidosis Status: Acute (20) Hypokalemia Status: Acute (21) Hypophosphatemia Status: Acute (22) Lip laceration Status: Acute (23) Malnutrition Status: Acute (24) Seizure Status: Acute (25) Thrombocytopenia Status: Acute Review of Systems Constitutional: No see HPI, No fever, No chills, No sweats, No weight loss, No weakness, No fatigue, No problem reported Eyes: No see HPI, No worsening of vision, No eye pain, No redness, No discharge , No diplopia, No problem reported ENT: No see HPI, No hearing loss, No unusual epistaxis, No nasal symptoms, No sore throat, No tinnitus, No dental problems, No trouble swallowing, No problem reported Respiratory: No see HPI, No cough, No sputum, No wheezing, No shortness of breath, No dyspnea on exertion, No dyspnea at rest, No hemoptysis, No problem reported Cardiac: No see HPI, No chest pain, No orthopnea, No PND, No edema, No claudication, No palpitations, No problem reported Abdomen: No see HPI, No pain, No nausea, No vomiting, No diarrhea, No constipation, No GI bleeding, No problem reported Musculoskeletal: No see HPI, No joint pain, No muscle pain, No swelling, No calf pain, No problem reported Male : No see HPI, No dysuria, No urinary frequency, No incontinence, No nocturia more than once/night, No slowing stream, No hematuria, No sexual dysfunction, No problem reported Neurologic: + problem reported (tremors), No see HPI, No memory loss, No paralysis, No weakness, No numbness/tingling, No vertigo, No balance problems Psychiatric: + anxiety, No see HPI, No depression symptoms, No anhedonism, No insomnia, No substance abuse, No problem reported Heme: No see HPI, No abnormal bleeding/bruising, No clotting problems, No swollen lymph nodes, No night sweats, No problem reported Endo: No see HPI, No fatigue, No excessive thirst, No excessive urination, No problem reported Skin: No see HPI, No rash, No itch, No new/changing skin lesions, No color change, No bleeding, No problem reported Objective Vital Signs Date Time Temp Pulse Resp B/P (MAP) Pulse Ox O2 Delivery O2 Flow Rate FiO2 02/11/17 12:00 Room Air 02/11/17 11:26 36.4 86 18 123/79 (94) 95 Room Air 02/11/17 08:00 Room Air 02/11/17 06:53 36.7 79 18 136/91 (106) 97 Room Air 02/11/17 04:00 Room Air 02/11/17 03:55 36.8 68 18 138/86 (103) 95 Room Air 02/11/17 00:01 Room Air 02/11/17 00:00 37.0 79 20 149/94 (112) 94 Room Air 02/10/17 20:00 Room Air 02/10/17 19:43 37.1 78 18 152/95 (114) 97 Room Air 02/10/17 16:00 Room Air Physical Exam General Appearance: WD/WN, no apparent distress Eyes: normal inspection, EOMI ENT: normal ENT inspection, hearing grossly normal Neck: supple Respiratory/Chest: chest non-tender, lungs clear, normal breath sounds, no respiratory distress, no accessory muscle use Cardiovascular: regular rate, rhythm, no edema, no gallop, no JVD, no murmur Abdomen: normal bowel sounds, non tender, soft, no organomegaly, no pulsatile mass Extremities: normal range of motion, non-tender, normal inspection, no pedal edema 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, no motor/sensory deficits, alert, normal mood/affect, oriented x 3 Skin: normal color, warm/dry, no rash Laboratory Results Last 24 Hours Test 02/11/17 05:06 White Blood Count 6.40 K/uL Red Blood Count 4.77 M/uL Hemoglobin 15.0 g/dL Hematocrit 43.6 % Mean Corpuscular Volume 91.4 fL Mean Corpuscular Hemoglobin 31.4 pg Mean Corpuscular Hemoglobin Concent 34.4 g/dl Platelet Count 159 K/uL Mean Platelet Volume 10.0 fL Neutrophils (%) (Auto) 53.2 % Lymphocytes (%) (Auto) 28.3 % Monocytes (%) (Auto) 16.4 % Eosinophils (%) (Auto) 1.1 % Basophils (%) (Auto) 0.5 % Neutrophils # (Auto) 3.41 K/uL Lymphocytes # (Auto) 1.81 K/uL Monocytes # (Auto) 1.05 K/uL Eosinophils # (Auto) 0.07 K/uL Basophils # (Auto) 0.03 K/uL RDW Standard Deviation 49.3 fL RDW Coefficient of Variation 14.7 % Immature Granulocyte % (Auto) 0.5 % Immature Granulocyte # (Auto) 0.03 K/uL Sodium Level 139 mmol/L Potassium Level 3.1 mmol/L Chloride Level 105 mmol/L Carbon Dioxide Level 27 mmol/L Anion Gap 7.0 mmol/L Blood Urea Nitrogen 9 mg/dl Creatinine 0.92 mg/dl Est Creatinine Clear Calc Drug Dose 91.2 ml/min Estimated GFR () 112.0 Estimated GFR (Non- 96.6 BUN/Creatinine Ratio 10.1 Random Glucose 88 mg/dl Calcium Level 8.0 mg/dl Magnesium Level 2.1 mg/dl Total Bilirubin 1.2 mg/dl Aspartate Amino Transf (AST/SGOT) 41 U/L Alanine Aminotransferase (ALT/SGPT) 39 U/L Alkaline Phosphatase 66 U/L Total Protein 7.4 gm/dl Albumin 3.1 gm/dl Globulin 4.3 gm/dl Albumin/Globulin Ratio 0.7 Assessment and Plan 51 years old man with history of ethanol abuse was treated multiple times for his addiction. Most recently he was doing well with an outpatient rehabilitation center, as per patient due to relocation he fell off the wagon and started drinking again. Presented for alcohol withdrawal. Clinical abuse/withdrawal Continue banana bag Continue folic acid and thiamine supplement Decrease the dose and frequency of Librium and Ativan Switch Ativan to oral in preparation of discharge Long discussion with patient, he agreed to start Naltrexone, will start today / D/W pharmacy Hypertension Continue metoprolol DVT prophylaxis/heparin subcutaneous
[2017-02-11] MEDS ORDERED: POTASSIUM CHLORIDE 20 MEQ TABCR PO ONE (20:45)
[2017-02-11] MEDS: MIRTAZAPINE TAB 15 MG TAB PO SCH (21:31)
[2017-02-12 00:39] VITALS: BP 148/97; PULSE 75; TEMP 36.8; O2SAT 95
[2017-02-12] MEDS: LORAZEPAM 2 MG TAB PO PRN (06:01)
[2017-02-12] MEDS: HEPARIN SOD 5000 UNIT/0.5 ML CARP SQ SCH ×2 (06:03→14:00)
[2017-02-12 07:05] LABS: HEMATOCRIT 45.1 % (42-52); MEAN CELL VOLUME 92.2 fL (80-100); MEAN CORPUSCULAR HEMOGLOBIN 31.1 pg (25-34); MEAN CORPUSCULAR HGB CONC 33.7 g/dl (32-36); PLATELET COUNT 152 K/uL (130-400); RED BLOOD COUNT 4.89 M/uL (4.7-6.1); WHITE BLOOD COUNT 7.05 K/uL (4.8-10.8)
[2017-02-12] MEDS: CYANOCOBALAMIN 500 MCG TAB (VIT B-12) PO SCH (07:31)
[2017-02-12] MEDS: CHLORDIAZEPOXIDE 5 MG CAP PO SCH (07:31)
[2017-02-12 07:32] VITALS: BP_SYST 135; BP_SYST 150; BP_DIAS 74; BP_DIAS 93; PULSE 70; PULSE 74; TEMP 36.6; TEMP 36.7; O2SAT 96; O2SAT 98
[2017-02-12] MEDS: CHOLECALCIFEROL 1000 INTER.UNIT TAB PO SCH (07:32)
[2017-02-12] MEDS: MULTIVITAMIN TAB PO SCH (07:32)
[2017-02-12] MEDS: MAGNESIUM OXIDE 400 MG TAB PO SCH (07:32)
[2017-02-12] MEDS: METOPROLOL TARTRATE 25 MG TAB PO SCH ×2 (07:32→14:27)
[2017-02-12] MEDS ORDERED: NALTREXONE HCL 50 MG TAB PO SCH ×2 (08:00→16:15)
[2017-02-12] MEDS: MULTI-VITAMIN INFUSION INJ 10 ML, THIAMINE HCL INJ 100 MG, FoLIC ACID INJ 1 MG in SODIU... IV SCH (08:00)
[2017-02-12] MEDS ORDERED: POTASSIUM CHLORIDE 20 MEQ TABCR PO SCH (08:00)
[2017-02-12] MEDS ORDERED: MAGN400T6 PO (09:06)
[2017-02-12] MEDS ORDERED: NLT50 PO (09:06)
[2017-02-12] MEDS ORDERED: LPR25 PO (09:06)
[2017-02-12] MEDS ORDERED: THIA100T11 PO (09:06)
[2017-02-12] MEDS ORDERED: MCRK20 PO (09:06)
[2017-02-12] MEDS ORDERED: FOLI1TAB7 PO (09:06)
--- NOTE | 2017-02-12 09:07 | Discharge Instructions ---
Discharge Instructions Date of Service Feb 12, 2017. Admission Reason for Admission: Alcohol Intoxication, Alcohol Withdrawal Discharge Discharge Diagnosis / Problem: alcohol withdrawal Discharge Goals Goal(s): Decrease discomfort Activity Recommendations Activity Limitations: resume your previous activity . Current Hospital Diet Patient's current hospital diet: AHA Diet (Heart Healthy) Discharge Diet Recommended Diet: Regular Diet Pending Studies Studies pending at discharge: no Medical Emergencies . Who to Call and When: Medical Emergencies: If at any time you feel your situation is an emergency, please call 911 immediately. . Non-Emergent Contact Non-Emergency issues call your: Primary Care Provider, Specialist (Addiction medicine center and AA) . . "Provider Documentation" section prepared by Marshall Bourne. . VTE Core Measure Inpt VTE Proph given/why not?: SCD's
[2017-02-12 09:41] VITALS: BP 135/93; PULSE 70; TEMP 36.6; O2SAT 96
[2017-02-12] MEDS ORDERED: ATV2 PO (09:52)
[2017-02-12] MEDS ORDERED: DISU1TAB PO (09:59)
--- NOTE | 2017-02-12 10:47 | Discharge Summary ---
Discharge Summary Date of Service Feb 12, 2017. Discharge Summary Admission Date: Feb 08, 2017 at 21:56 Discharge Date: Feb 12, 2017 Discharge Disposition: Home Principal Diagnosis: alcohol addiction with withdrawal Problems/Secondary Diagnoses: alcohol addiction with withdrawal New onset hypertension Anxiety disorder Medication Reconciliation New Medications: Disulfiram (Antabuse) 250 Mg Tab 250 MG PO DAILY for 30 Days, #30 TAB Lorazepam (Lorazepam) 2 Mg Tab 2 MG PO Q12H PRN for Anxiety for 6 Days, #15 TAB take one tablet every 12 hours for 3 days then 1/2 tablet every 12 hours for 3 days then 1/2 tablet every night for 3 days then 1/2 tablet every 12 hours as needed for anxiety for 7 days Metoprolol Tartrate (Lopressor) 25 Mg Tab 12.5 MG PO TID for 30 Days, #60 TAB Naltrexone HCl (Naltrexone HCl) 50 Mg Tab 50 MG PO DAILY for 30 Days, #30 TAB Potassium Chloride (Klor-Con M20) 20 Meq Tabcr 20 MEQ PO QAM for 30 Days, #30 TAB Continued Medications: Cholecalciferol (Vitamin D3) 2,000 Unit Cap 2000 INTER.UNIT PO DAILY, CAP Cyanocobalamin (Vitamin B12) 1,000 Mcg Tab 1000 MCG PO DAILY Folic Acid (Folvite) 1 Mg Tab 1 MG PO DAILY for 30 Days, #30 TAB (This prescription has been renewed) Magnesium Oxide (Mag-Ox) 400 Mg Tab 400 MG PO BID for 30 Days, #30 TAB (This prescription has been renewed) Mirtazapine (Remeron) 15 Mg Tab 15 MG PO HS, #30 Multivitamin (Multivitamin) Tab 1 TAB PO DAILY Thiamine Hcl (Vitamin B-1) 100 Mg Tab 100 MG PO BID for 30 Days, #30 TAB (This prescription has been renewed) Triamcinolone Acetonide (Nasal (Nasacort Allergy 24Hr) 55 Mcg/Act Spr 1 SPRAY PRANAY BID PRN for ALLERGIC REACTION Discontinued Medications: Trazodone Hcl (Trazodone) 50 Mg Tab 50 MG PO HS Discharge Exam Review of Systems: Constitutional: No fever, No chills, No sweats, No weight loss, No weakness , No fatigue, No problem reported Eyes: No worsening of vision, No eye pain, No redness, No discharge, No diplopia, No problem reported ENT: No hearing loss, No unusual epistaxis, No nasal symptoms, No sore throat, No tinnitus, No dental problems, No trouble swallowing, No problem reported Respiratory: No cough, No sputum, No wheezing, No shortness of breath, No dyspnea on exertion, No dyspnea at rest, No hemoptysis, No problem reported Cardiovascular: No chest pain, No orthopnea, No PND, No edema, No claudication, No palpitations, No problem reported Abdomen: No pain, No nausea, No vomiting, No diarrhea, No constipation, No GI bleeding, No problem reported Musculoskeletal: No joint pain, No muscle pain, No swelling, No calf pain, No problem reported Genitourinary - Male: No hematuria, No dysuria, No urinary frequency, No urinary urgency, No urinary hesitancy, No urinary retention, No urinary incontinence, No penile discharge, No lesions, No impotence, No problem reported Neurologic: No memory loss, No paralysis, No weakness, No numbness/tingling , No vertigo, No balance problems, No problem reported Psychiatric: No depression symptoms, No anhedonism, No anxiety, No insomnia , No substance abuse, No problem reported Endocrine: No fatigue, No excessive thirst, No excessive urination, No problem reported Hematologic / Lymphatic: No abnormal bleeding/bruising, No clotting problems , No swollen lymph nodes, No night sweats, No problem reported Integumentary: No rash, No itch, No new/changing skin lesions, No color change, No bleeding, No problem reported Physical Exam: General Appearance: WD/WN, no apparent distress Eyes: normal inspection, EOMI ENT: normal ENT inspection, hearing grossly normal Neck: supple Respiratory/Chest: chest non-tender, lungs clear, normal breath sounds, no respiratory distress, no accessory muscle use Cardiovascular: regular rate, rhythm, no edema, no gallop, no JVD, no murmur , normal peripheral pulses Abdomen / GI: normal bowel sounds, non tender, soft, no organomegaly, no pulsatile mass Extremities: normal inspection, no calf tenderness, normal capillary refill , no pedal edema 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 Most recently he was doing well with an outpatient rehabilitation center, as per patient due to relocation he fell off the wagon and started drinking again. Presented for alcohol withdrawal. For his Clinical abuse/withdrawal He was started on banana bag / folic acid and thiamine supplement Initially started on Librium and Ativan large dose Gradually Decreased the dose and frequency of Librium and Ativan Switch Ativan to oral upon discharge , tapering dose Long discussion with patient, he agreed to start Naltrexone, and Antabuse He was also found to have Hypertension Started on metoprolol Today he required only 1 ativan oral, no alcohol withdrawal symptoms Be discharged to follow-up with addiction medicine and AAA as an outpatient Total Time Spent: Greater than 30 minutes This includes examination of the patient, discharge planning, medication reconciliation, and communication with other providers. Discharge Instructions Please refer to the electronic Patient Visit Report (Discharge Instructions) for additional information.
== END 2017-02-12 15:15 | disposition home or self-care (01) | DRG 897 ==
LOC: C.EDB 19:27 → C.2T 21:56 → ENRESERV 22:17 → C.MS4W 02-11 17:43
PROVIDERS: ADMIT Internal Medicine; ATTEND Internal Medicine
DX: F10.239 Alcohol dependence with withdrawal, unspecified (principal); I10 Essential (primary) hypertension; F41.9 Anxiety disorder, unspecified; Z80.9 Family history of malignant neoplasm, unspecified; Z83.3 Family history of diabetes mellitus

== ENCOUNTER 2017-06-16 01:35 | Inpatient (IN) | payer OTHER ==
[2017-06-16] VITALS (9 sets, daily range): BP systolic 130–170; BP diastolic 77–96; PULSE 69–112; TEMP 36.6–37; O2SAT 95–97; Ht 162.6 cm; Wt 78.5 kg
[~2017-06-16] VITALS: Ht 162.6 cm; Wt 78.5 kg
[~2017-06-16 01:35] MED LIST changes: +ATV2 PO; -FOLI1TAB7 PO; +FOLI1TAB8 PO; +LPR25 PO; +MCRK20 PO; +NALT50TA16 PO; -TRAZ50TA35 PO; +TRIA1SPR4 NAE
[2017-06-16] MEDS ORDERED: LORAZEPAM 2 MG/ML 1 ML VIAL IV STA ×2 (01:51→03:26)
--- NOTE | 2017-06-16 01:53 | EMERGENCY ROOM VISIT NOTE ---
History Report prepared by Kandi: Jose Ratliff Under the Supervision of: Dr. Chad Cunningham M.D. First contact with patient: 01:44 Chief Complaint: DETOX REQUEST Stated Complaint: ALCOHOL WITHDRAWAL, ANXIETY History of Present Illness The patient is a 51 year old male who presents to the Emergency Room with complaints of a persistent alcohol detox request today. He says that he was here back in January for withdrawal, and stopped drinking then. The patient states that he then restarted drinking again a month ago. He says that he has especially been drinking a lot over this holiday period. The patient notes that he drinks between 6 to 8 beers per day, with his last drink being around 6 hours ago. He says that he now is nauseous and lightheaded, with some shakes. The patient states that he has a history of seizures when withdrawing from alcohol. He denies any hallucinations, loss of consciousness, shortness of breath, cough, or ankle swelling. He notes no drug use. He also denies any suicidal or homicidal ideations. The patient notes no history of liver failure. He was last admitted for rehab a couple years ago. Source of History: patient Onset: Today Position: other (global - alcohol detox request) Symptom Intensity: last drink 6 hours ago Timing: other (persistent) Associated Symptoms: + nausea, No LOC, No cough, No SOB Note: Associated symptoms: Lightheadedness, shaking. Denies ankle swelling. Review of Systems See HPI for pertinent positives & negatives. A total of 10 systems reviewed and were otherwise negative. Past Medical & Surgical Medical Problems: (1) Alcohol overdose (2) Alcohol withdrawal (3) Alcohol withdrawal (4) Alcoholism (5) Compression fracture of body of thoracic vertebra (6) Compression fracture of L1 lumbar vertebra (7) Hypokalemia (8) Hypomagnesemia (9) Seizure-like activity Family History Cancer Diabetes mellitus Lung disease Social History Smoking Status: Never Smoker Alcohol Use: heavy Drug Use: none Marital Status: in relationship Housing Status: lives with significant other Occupation Status: employed Current/Historical Medications Scheduled Cholecalciferol (Vitamin D3), 2,000 INTER.UNIT PO DAILY Cyanocobalamin (Vitamin B12), 1,000 MCG PO DAILY Folic Acid (Folvite), 1 MG PO DAILY Magnesium Oxide (Mag-Ox), 400 MG PO BID Metoprolol Tartrate (Lopressor) (Lopressor), 12.5 MG PO TID Mirtazapine (Remeron), 15 MG PO HS Multivitamin (Multivitamin), 1 TAB PO DAILY Naltrexone Hcl (Naltrexone Hcl), 50 MG PO DAILY Potassium Ext Rel (Klor-Con), 20 MEQ PO DAILY Thiamine Mononitrate (Vitamin B1), 100 MG PO BID Trazodone HCl (Trazodone HCl), 50 MG PO HS Scheduled PRN Lorazepam (Ativan), 1 MG PO BID PRN for Anxiety/Insomnia Triamcinolone Acetonide (Nasal (Nasacort Allergy 24Hr), 1 SPRAY PRANAY BID PRN for ALLERGIC REACTION Allergies Coded Allergies: No Known Allergies (Unverified , 06/16/17) Physical Exam Vital Signs Date Time Temp Pulse Resp B/P (MAP) Pulse Ox O2 Delivery O2 Flow Rate FiO2 06/16/17 04:05 110 18 97 Room Air 06/16/17 04:01 157/95 06/16/17 03:35 94 20 94 Room Air 06/16/17 03:31 159/99 06/16/17 03:05 100 24 94 Room Air 06/16/17 03:00 160/95 06/16/17 02:41 100 14 95 Room Air 06/16/17 02:30 149/94 06/16/17 02:21 95 Room Air 06/16/17 02:12 101 06/16/17 02:11 100 22 96 Room Air 06/16/17 02:06 143/99 06/16/17 01:38 36.9 95 24 163/100 97 Room Air Physical Exam GENERAL: Patient is tremulous, shaky, smells of alcohol. HEENT: No acute trauma, normocephalic atraumatic, mucous membranes moist, no nasal congestion, no scleral icterus. NECK: No stridor, no adenopathy, no meningismus, trachea is midline. LUNGS: No dyspnea. Clear to auscultation and equal bilaterally. No wheeze, no rhonchi. HEART: Regular rate and rhythm. No murmurs, rubs, gallops appreciated. ABDOMEN: Soft, nontender, bowel sounds positive, no masses appreciated, no peritonitis. BACK: No midline tenderness, no CVA tenderness EXTREMITIES: Normal motion all extremities, no cyanosis, no edema. NEUROLOGIC: Alert and oriented, no acute motor or sensory deficits, no focal weakness, cranial nerves grossly intact. SKIN: No rash, no jaundice, no diaphoresis. Medical Decision & Procedures Laboratory Results 06/16/17 02:04 Red Blood Count 5.04, Mean Corpuscular Volume 91.1, Mean Corpuscular Hemoglobin 31.5, Mean Corpuscular Hemoglobin Concent 34.6, Mean Platelet Volume 9.4, Neutrophils (%) (Auto) 75.2, Lymphocytes (%) (Auto) 14.5, Monocytes (%) (Auto) 9.6, Eosinophils (%) (Auto) 0.0, Basophils (%) (Auto) 0.4, Neutrophils # (Auto) 5.07, Lymphocytes # (Auto) 0.98, Monocytes # (Auto) 0.65, Eosinophils # (Auto) 0.00, Basophils # (Auto) 0.03 06/16/17 02:04 Test 06/16/17 02:04 06/16/17 04:09 White Blood Count 6.75 K/uL (4.8-10.8) Red Blood Count 5.04 M/uL (4.7-6.1) Hemoglobin 15.9 g/dL (14.0-18.0) Hematocrit 45.9 % (42-52) Mean Corpuscular Volume 91.1 fL (80-100) Mean Corpuscular Hemoglobin 31.5 pg (25-34) Mean Corpuscular Hemoglobin Concent 34.6 g/dl (32-36) Platelet Count 147 K/uL (130-400) Mean Platelet Volume 9.4 fL (7.4-10.4) Neutrophils (%) (Auto) 75.2 % Lymphocytes (%) (Auto) 14.5 % Monocytes (%) (Auto) 9.6 % Eosinophils (%) (Auto) 0.0 % Basophils (%) (Auto) 0.4 % Neutrophils # (Auto) 5.07 K/uL (1.4-6.5) Lymphocytes # (Auto) 0.98 K/uL (1.2-3.4) Monocytes # (Auto) 0.65 K/uL (0.11-0.59) Eosinophils # (Auto) 0.00 K/uL (0-0.5) Basophils # (Auto) 0.03 K/uL (0-0.2) RDW Standard Deviation 45.5 fL (36.4-46.3) RDW Coefficient of Variation 13.7 % (11.5-14.5) Immature Granulocyte % (Auto) 0.3 % Immature Granulocyte # (Auto) 0.02 K/uL (0.00-0.02) Anion Gap 15.0 mmol/L (3-11) Est Creatinine Clear Calc Drug Dose 112.8 ml/min Estimated GFR () 124.0 Estimated GFR (Non- 107.0 BUN/Creatinine Ratio 16.1 (10-20) Calcium Level 8.5 mg/dl (8.5-10.1) Magnesium Level 1.5 mg/dl (1.8-2.4) Total Bilirubin 1.1 mg/dl (0.2-1) Direct Bilirubin 0.3 mg/dl (0-0.2) Aspartate Amino Transf (AST/SGOT) 66 U/L (15-37) Alanine Aminotransferase (ALT/SGPT) 41 U/L (12-78) Alkaline Phosphatase 57 U/L (45-117) Total Protein 8.4 gm/dl (6.4-8.2) Albumin 3.9 gm/dl (3.4-5.0) Lipase 136 U/L (73-393) Ethyl Alcohol mg/dL 79.0 mg/dl (0-3) Bedside Glucose 97 mg/dl (70-99) Laboratory results as reviewed by me. Medications Administered Medications (Trade) Dose Ordered Sig/Dyan Route Start Time Stop Time Status Last Admin Dose Admin Multivitamins 10 ml/Thiamine HCl 100 mg/Folic Acid 1 mg/Sodium Chloride 1,011.2 ml @ 500 mls/ hr Q2H2M ONCE IV 06/16/17 02:00 06/16/17 04:01 DC 06/16/17 02:14 500 MLS/HR Lorazepam (Ativan Inj) 2 mg NOW STAT IV 06/16/17 01:51 06/16/17 01:52 DC 06/16/17 02:13 2 MG Magnesium Sulfate (Magnesium Sulfate) 2 gm NOW STAT IV 06/16/17 02:41 06/16/17 02:42 DC 06/16/17 03:04 2 GM Lorazepam (Ativan Inj) 1 mg NOW STAT IV 06/16/17 03:26 1/3/18 03:27 DC 06/16/17 03:30 1 MG Chlordiazepoxide (Librium Cap) 25 mg NOW ONCE PO 06/16/17 04:00 06/16/17 04:12 DC 06/16/17 04:16 25 MG Potassium Chloride 10 meq/ Prmx 100 ml @ 100 mls/hr Q1H IV 06/16/17 04:11 06/16/17 06:10 06/16/17 04:43 100 MLS/HR Potassium Chloride (Klor-Con M10) 20 meq NOW STAT PO 06/16/17 04:01 06/16/17 04:09 DC 06/16/17 04:16 20 MEQ ED Course 0147: The patient was evaluated in room A4B. A complete history and physical exam was performed. 0249: I discussed the patient with Dr. Johnathon MORELAND materials recycler - he notes that he will evaluate the patient. He requested that I plan on ordering repeat electrolytes in the next few hours if need-be. 0255: Upon reevaluation, the patient is resting. Discussed results and treatment plan with the patient. He verbalized understanding and agreement with the treatment plan. The patient will be evaluated for further management. Medical Decision 51 yr old male arrives from home for evaluation of alcohol withdrawal. Patient known to department for similar visits over last year. Admits history of seizures, severe tremors, inability to eat, malnutrition with previous attempts at quitting. States sober for a few months up until 4 wks ago when he started drinking heavily again. States 6 to 10 beers a day. Quite shaky on arrival. Given ativan/fluids. Malnutritioned and able to eat after ativan. Will bring in given his seizure history, malnutrition and claimed wish to be sober. Medication Reconcilliation Current Medication List: was personally reviewed by me Blood Pressure Screening Patient's blood pressure: Elevated blood pressure Referred to hospitalist. Consults Time Called: [phone] Consulting Physician: Dr. Johnathon MORELAND materials recycler Returned Call: [phone] I discussed the patient with Dr. Johnathon MORELAND materials recycler - he notes that he will evaluate the patient. He requested that I plan on ordering repeat electrolytes in the next few hours if need-be. Impression Primary Impression: Alcohol withdrawal Additional Impressions: Dehydration Malnutrition Scribe Attestation The scribe's documentation has been prepared under my direction and personally reviewed by me in its entirety. I confirm that the note above accurately reflects all work, treatment, procedures, and medical decision making performed by me. Departure Information Dispostion Being Evaluated By Hospitalist Referrals No Doctor, Assigned (PCP) Patient Instructions My [facility] Health Problem Qualifiers
[2017-06-16] MEDS ORDERED: MULTI-VITAMIN INFUSION INJ 10 ML, THIAMINE HCL INJ 100 MG, FoLIC ACID INJ 1 MG in SODIU... IV ONE (02:00)
[2017-06-16] MEDS ORDERED: FOLI1TAB8 PO (02:07)
[2017-06-16] MEDS ORDERED: MAGN400T6 PO (02:08)
[2017-06-16] MEDS ORDERED: METO25TA56 PO (02:09)
[2017-06-16] MEDS ORDERED: NALT50TA5 PO (02:10)
[2017-06-16] MEDS ORDERED: POTA20TA16 PO (02:11)
[2017-06-16] MEDS ORDERED: THIA1TAB11 PO (02:12)
[2017-06-16] MEDS ORDERED: ATV/1 PO (02:15)
[2017-06-16] MEDS ORDERED: DSY/50 PO (02:15)
[2017-06-16 02:18] LABS: BASO % 0.4 %; BASO ABS # 0.03 K/uL (0-0.2); HEMATOCRIT 45.9 % (42-52); HEMOGLOBIN 15.9 g/dL (14.0-18.0); IG# 0.02 K/uL (0.00-0.02); LYMPH % 14.5 %; LYMPH ABS # 0.98 K/uL (1.2-3.4); MEAN CELL VOLUME 91.1 fL (80-100); MEAN CORPUSCULAR HEMOGLOBIN 31.5 pg (25-34); MEAN CORPUSCULAR HGB CONC 34.6 g/dl (32-36); MEAN PLATELET VOLUME 9.4 fL (7.4-10.4); MONO % 9.6 %; MONO ABS # 0.65 K/uL (0.11-0.59); NEUT % 75.2 %; NEUT ABS # 5.07 K/uL (1.4-6.5); PLATELET COUNT 147 K/uL (130-400); RED CELL DISTRIBUTION WIDTH CV 13.7 % (11.5-14.5); RED CELL DISTRIBUTION WIDTH SD 45.5 fL (36.4-46.3); WHITE BLOOD COUNT 6.75 K/uL (4.8-10.8)
[2017-06-16 02:37] LABS: ALBUMIN 3.9 gm/dl (3.4-5.0); CALCIUM 8.5 mg/dl (8.5-10.1); CREATININE 0.75 mg/dl (0.60-1.40); POTASSIUM 3.1 mmol/L (3.5-5.1)
[2017-06-16 02:40] LABS: TOTAL PROTEIN 8.4 gm/dl (6.4-8.2)
[2017-06-16] MEDS ORDERED: MAGNESIUM SULFATE 1GM / D5W 1 GM BAG IV STA (02:41)
[2017-06-16] MEDS ORDERED: CHLORDIAZEPOXIDE 25 MG CAP PO ONE (04:00)
[2017-06-16] MEDS ORDERED: POTASSIUM CHLORIDE 10 MEQ TABCR PO STA (04:01)
[2017-06-16] MEDS ORDERED: MAGNESIUM HYDROXIDE SUSP 30 ML UDC PO PRN (04:15)
[2017-06-16] MEDS ORDERED: POLYETHYLENE (MIRALAX) 17 GM PACK PO PRN (04:15)
[2017-06-16] MEDS ORDERED: ONDANSETRON INJ 2 MG/ML 2 ML VIAL IV PRN (04:15)
[2017-06-16] MEDS ORDERED: ACETAMINOPHEN 325 MG TAB PO PRN (04:15)
--- NOTE | 2017-06-16 04:32 | History and Physical ---
History & Physical Date & Time of Service: Jun 16, 2017 at 04:26 Chief Complaint: Alcohol Withdrawal, Anxiety Primary Care Physician: No Doctor, Assigned History of Present Illness Source: patient 51 y/o M Hx HTN, ETOH abuse and withdrawal seizures - pt has been admitted multiple times for detox and continues to relapse. He states that he had quit for a short period and then resumed drinking due to the holidays. He presents requesting detox once again. He denies CP, SOB, N/V/D, fevers or confusion. He is exhibiting mild tremors at the time of admission. Initial labs are notable for hypomagnesemia, hypokalemia and hypoglycemia. Past Medical/Surgical History 1) Alcohol withdrawal with seizures 2) Alcohol abuse 3) Compression fracture of body of thoracic vertebra 4) Compression fracture of L1 lumbar vertebra 5) Hypokalemia 6) Hypomagnesemia 7) HTN Family History Cancer Diabetes mellitus Lung disease Social History Long-term alcohol abuse Smoking Status: Never Smoker Drug Use: none Marital Status: in relationship Occupational Status: employed Multi-Drug Resistant Organisms History of MDRO: No Allergies Coded Allergies: No Known Allergies (Unverified , 06/16/17) Home Medications Scheduled Cholecalciferol (Vitamin D3), 2,000 INTER.UNIT PO DAILY Cyanocobalamin (Vitamin B12), 1,000 MCG PO DAILY Folic Acid (Folvite), 1 MG PO DAILY Magnesium Oxide (Mag-Ox), 400 MG PO BID Metoprolol Tartrate (Lopressor) (Lopressor), 12.5 MG PO TID Mirtazapine (Remeron), 15 MG PO HS Multivitamin (Multivitamin), 1 TAB PO DAILY Naltrexone Hcl (Naltrexone Hcl), 50 MG PO DAILY Potassium Ext Rel (Klor-Con), 20 MEQ PO DAILY Thiamine Mononitrate (Vitamin B1), 100 MG PO BID Trazodone HCl (Trazodone HCl), 50 MG PO HS Scheduled PRN Lorazepam (Ativan), 1 MG PO BID PRN for Anxiety/Insomnia Triamcinolone Acetonide (Nasal (Nasacort Allergy 24Hr), 1 SPRAY PRANAY BID PRN for ALLERGIC REACTION Review of Systems Constitutional: No fever, No chills, No sweats Eyes: No worsening of vision ENT: No hearing loss, No nasal symptoms Respiratory: No cough, No wheezing Cardiovascular: No chest pain, No orthopnea, No PND Abdomen: No pain, No nausea, No vomiting Musculoskeletal: No joint pain Genitourinary - Male: No hematuria, No dysuria Neurologic: + balance problems, + problem reported (tremors) Psychiatric: No depression symptoms Endocrine: No fatigue Hematologic / Lymphatic: No abnormal bleeding/bruising Integumentary: No rash Allergic / Immunologic: No environmental allergies Physical Exam Vital Signs Date Time Temp Pulse Resp B/P (MAP) Pulse Ox O2 Delivery O2 Flow Rate FiO2 06/16/17 03:00 160/95 06/16/17 02:41 100 14 95 Room Air 06/16/17 02:30 149/94 06/16/17 02:21 95 Room Air 06/16/17 02:12 101 06/16/17 02:11 100 22 96 Room Air 06/16/17 02:06 143/99 06/16/17 01:38 36.9 95 24 163/100 97 Room Air General Appearance: WD/WN, no apparent distress Head: normocephalic Eyes: normal inspection ENT: normal ENT inspection, pharynx normal Neck: supple, no JVD Respiratory/Chest: chest non-tender, lungs clear, normal breath sounds Cardiovascular: regular rate, rhythm, no edema, no gallop Abdomen/GI: normal bowel sounds, non tender, soft Back: normal inspection, no CVA tenderness Extremities/Musculoskelatal: normal inspection, no calf tenderness, normal capillary refill Neurologic/Psych: intelligence specialist II-XII nml as tested, no motor/sensory deficits, alert, + pertinent finding (Tremors noted BL) Skin: normal color, warm/dry Diagnostics Laboratory Results Results Past 24 Hours Test 06/16/17 02:04 06/16/17 04:09 Range/Units White Blood Count 6.75 4.8-10.8 K/uL Red Blood Count 5.04 4.7-6.1 M/uL Hemoglobin 15.9 14.0-18.0 g/dL Hematocrit 45.9 42-52 % Mean Corpuscular Volume 91.1 80-100 fL Mean Corpuscular Hemoglobin 31.5 25-34 pg Mean Corpuscular Hemoglobin Concent 34.6 32-36 g/dl Platelet Count 147 130-400 K/uL Mean Platelet Volume 9.4 7.4-10.4 fL Neutrophils (%) (Auto) 75.2 % Lymphocytes (%) (Auto) 14.5 % Monocytes (%) (Auto) 9.6 % Eosinophils (%) (Auto) 0.0 % Basophils (%) (Auto) 0.4 % Neutrophils # (Auto) 5.07 1.4-6.5 K/uL Lymphocytes # (Auto) 0.98 1.2-3.4 K/uL Monocytes # (Auto) 0.65 0.11-0.59 K/uL Eosinophils # (Auto) 0.00 0-0.5 K/uL Basophils # (Auto) 0.03 0-0.2 K/uL RDW Standard Deviation 45.5 36.4-46.3 fL RDW Coefficient of Variation 13.7 11.5-14.5 % Immature Granulocyte % (Auto) 0.3 % Immature Granulocyte # (Auto) 0.02 0.00-0.02 K/uL Sodium Level 134 136-145 mmol/L Potassium Level 3.1 3.5-5.1 mmol/L Chloride Level 102 98-107 mmol/L Carbon Dioxide Level 17 21-32 mmol/L Anion Gap 15.0 3-11 mmol/L Blood Urea Nitrogen 12 7-18 mg/dl Creatinine 0.75 0.60-1.40 mg/dl Est Creatinine Clear Calc Drug Dose 112.8 ml/min Estimated GFR () 124.0 Estimated GFR (Non- 107.0 BUN/Creatinine Ratio 16.1 10-20 Random Glucose 68 70-99 mg/dl Calcium Level 8.5 8.5-10.1 mg/dl Magnesium Level 1.5 1.8-2.4 mg/dl Total Bilirubin 1.1 0.2-1 mg/dl Direct Bilirubin 0.3 0-0.2 mg/dl Aspartate Amino Transf (AST/SGOT) 66 15-37 U/L Alanine Aminotransferase (ALT/SGPT) 41 12-78 U/L Alkaline Phosphatase 57 45-117 U/L Total Protein 8.4 6.4-8.2 gm/dl Albumin 3.9 3.4-5.0 gm/dl Lipase 136 73-393 U/L Ethyl Alcohol mg/dL 79.0 0-3 mg/dl Bedside Glucose 97 70-99 mg/dl Impression Assessment and Plan 51 y/o M Hx ETOH abuse and withdrawal seizures - pt has been admitted multiple times for detox and continues to relapse. He states that he had quit for a short period and then resumed drinking due to the holidays. He presents requesting detox once again. He denies CP, SOB, N/V/D, fevers or confusion. He is exhibiting mild tremors at the time of admission. Initial labs are notable for hypomagnesemia, hypokalemia and hypoglycemia. 1) ETOH abuse and withdrawal - placed on telemetry due to history of DTs and seizures - Scheduled Librium, PRN Ativan, IVF and daily banana bag. Pt is in a cycle where he essentially comes to the hospital for withdrawal symptoms, is discharged and attends rehab for a short period prior to resuming alcohol use. It is unclear if we have any alternatives for better management. He was DCd with Naltrexone and Antabuse previously. 2) Electrolyte abnormalities - K and Mg replaced 3) HTN - cont Metoprolol Full code - SCDs due to DT and fall risk Total time for this admit including review of labs, meds, imaging - discussion with pt and ER attending - 30 min Level of Care Telemetry Resuscitation Status FULL RESUSCITATION VTE Prophylaxis VTE Risk Assessment Done? Y/N: Yes Risk Level: Low Given or contraindicated: SCD's
[2017-06-16] MEDS: POTASSIUM CHLR 10 MEQ / WTR 10 MEQ in PREMIXED WATER 100 ML IV SCH ×2 (04:43→05:58)
[2017-06-16] MEDS: ALUMINUM/MAGNESIUM/SIMETH (MAALOX MAX) 30 ML UDC PO PRN (06:02)
[2017-06-16] MEDS: LORAZEPAM 2 MG/ML 1 ML VIAL IV PRN ×5 (07:46→23:23)
[2017-06-16] MEDS: CHLORDIAZEPOXIDE 25 MG CAP PO SCH ×3 (08:21→21:10)
[2017-06-16] MEDS: D5NSS + 20MEQ KCL 1,000 ML IV SCH ×2 (08:21→16:08)
[2017-06-16] MEDS: CYANOCOBALAMIN 500 MCG TAB (VIT B-12) PO SCH (08:34)
[2017-06-16] MEDS: MAGNESIUM OXIDE 400 MG TAB PO SCH ×2 (08:34→21:10)
[2017-06-16] MEDS: METOPROLOL TARTRATE 25 MG TAB PO SCH ×3 (08:34→21:13)
[2017-06-16] MEDS: POTASSIUM CHLORIDE 20 MEQ TABCR PO SCH (08:34)
[2017-06-16] MEDS: MULTIVITAMIN TAB PO SCH (08:34)
--- NOTE | 2017-06-16 11:48 | Progress Note ---
Progress Note Date of Service Jun 16, 2017. Progress Note Patient is resting comfortably. Patient reports that he will likely restart AA once he is discharged. He is still receiving [facility] protocol. will continue current management.
[2017-06-16] MEDS ORDERED: POTASSIUM CHLORIDE 20 MEQ TABCR PO ONE (21:00)
[2017-06-16] MEDS: TRAZODONE HCL 50 MG TAB PO SCH (21:10)
[2017-06-16] MEDS: MIRTAZAPINE TAB 15 MG TAB PO SCH (21:10)
[2017-06-17] VITALS (8 sets, daily range): BP systolic 103–144; BP diastolic 70–94; PULSE 81–89; TEMP 36.6–36.9; O2SAT 94–97
[2017-06-17] MEDS: LORAZEPAM 2 MG/ML 1 ML VIAL IV PRN (03:55)
[2017-06-17 07:19] LABS: CALCIUM 8.8 mg/dl (8.5-10.1); CREATININE 0.72 mg/dl (0.60-1.40); POTASSIUM 4.1 mmol/L (3.5-5.1)
[2017-06-17] MEDS: CHLORDIAZEPOXIDE 25 MG CAP PO SCH ×3 (07:45→20:23)
[2017-06-17] MEDS: METOPROLOL TARTRATE 25 MG TAB PO SCH ×3 (07:46→20:19)
[2017-06-17] MEDS: MULTIVITAMIN TAB PO SCH (07:46)
[2017-06-17] MEDS: CYANOCOBALAMIN 500 MCG TAB (VIT B-12) PO SCH (07:47)
[2017-06-17] MEDS: MAGNESIUM OXIDE 400 MG TAB PO SCH ×2 (07:47→20:19)
[2017-06-17] MEDS: POTASSIUM CHLORIDE 20 MEQ TABCR PO SCH (07:47)
[2017-06-17] MEDS ORDERED: MULTI-VITAMIN INFUSION INJ 10 ML, THIAMINE HCL INJ 100 MG, FoLIC ACID INJ 1 MG in SODIU... IV SCH (09:00)
--- NOTE | 2017-06-17 10:46 | Progress Note ---
Subjective Date of Service: Jun 17, 2017. Subjective Pt evaluation today including: conversation w/ patient, physical exam 51 yo male complains of tremors and feeling fatigued. Patient would like a higher dose of ativan. Problem List Medical Problems: (1) Alcohol abuse Status: Acute (2) Alcohol intoxication Status: Acute (3) Alcohol withdrawal Status: Acute (4) Alcohol withdrawal Status: Acute (5) Alcohol withdrawal Status: Acute (6) Alcohol withdrawal Status: Acute (7) Alcohol withdrawal Status: Acute (8) Alcoholic Status: Acute (9) Alcoholic hepatitis Status: Acute (10) Anxiety Status: Acute (11) Anxiety Status: Acute (12) Atrial fibrillation with RVR Status: Acute (13) Chest pain Status: Acute (14) Chest pain Status: Acute (15) Dehydration Status: Acute (16) Dehydration Status: Acute (17) Elevated LFTs Status: Acute (18) Facial laceration Status: Acute (19) Fall Status: Acute (20) High anion gap metabolic acidosis Status: Acute (21) Hypokalemia Status: Acute (22) Hypophosphatemia Status: Acute (23) Lip laceration Status: Acute (24) Malnutrition Status: Acute (25) Malnutrition Status: Acute (26) Seizure Status: Acute (27) Thrombocytopenia Status: Acute Review of Systems Constitutional: No fever, No chills Respiratory: No cough, No sputum Cardiac: No chest pain, No orthopnea Abdomen: No pain, No nausea Neurologic: No memory loss, No paralysis Psychiatric: No depression symptoms, No anhedonism Endo: No fatigue Skin: No rash, No itch All Other Systems: Reviewed and Negative Medications Current Inpatient Medications Medications (Trade) Dose Ordered Sig/Dyan Route Start Time Stop Time Status Last Admin Dose Admin Lorazepam (Ativan Inj) 2 mg Q3H PRN IV 06/16/17 04:15 07/16/17 04:14 06/17/17 03:55 2 MG Acetaminophen (Tylenol Tab) 650 mg Q4H PRN PO 06/16/17 04:15 07/16/17 04:14 Al Hydrox/Mg Hydrox/Simethicone (Maalox Max Susp) 15 ml Q4H PRN PO 06/16/17 04:15 07/16/17 04:14 06/17/17 20:20 15 ML Magnesium Hydroxide (Milk Of Magnesia Susp) 30 ml Q12H PRN PO 06/16/17 04:15 07/16/17 04:14 Ondansetron HCl (Zofran Inj) 4 mg Q6H PRN IV 06/16/17 04:15 07/16/17 04:14 06/16/17 13:07 4 MG Polyethylene (Miralax Powder Packet) 17 gm DAILY PRN PO 06/16/17 04:15 07/16/17 04:14 Magnesium Oxide (Mag-Ox Tab) 400 mg BID PO 06/16/17 09:00 07/16/17 08:59 06/17/17 20:19 400 MG Metoprolol Tartrate (Lopressor Tab) 12.5 mg TID PO 06/16/17 09:00 07/16/17 08:59 06/17/17 20:19 12.5 MG Mirtazapine (Remeron Tab) 15 mg HS PO 06/16/17 21:00 07/16/17 20:59 06/17/17 20:20 15 MG Multivitamins (Multivitamin Tab) 1 tab DAILY PO 06/16/17 09:00 07/16/17 08:59 06/17/17 07:46 1 TAB Potassium Chloride (Klor-Con Tab) 20 meq DAILY PO 06/16/17 09:00 07/16/17 08:59 06/17/17 07:47 20 MEQ Trazodone HCl (Desyrel Tab) 50 mg HS PO 06/16/17 21:00 07/16/17 20:59 06/17/17 20:21 50 MG Cyanocobalamin (Vitamin B-12 Tab) 1,000 mcg DAILY PO 06/16/17 09:00 07/16/17 08:59 06/17/17 07:47 1,000 MCG Chlordiazepoxide (Librium Cap) 50 mg TID PO 06/17/17 15:00 07/16/17 14:59 06/17/17 20:23 50 MG Thiamine HCl (Vitamin B-1 Tab) 100 mg QAM PO 06/18/17 09:00 07/18/17 08:59 Folic Acid (Folvite Tab) 1 mg QAM PO 06/18/17 09:00 07/18/17 08:59 Objective Vital Signs Date Time Temp Pulse Resp B/P (MAP) Pulse Ox O2 Delivery O2 Flow Rate FiO2 06/17/17 08:00 Room Air 06/17/17 07:46 36.8 83 16 133/94 (107) 97 Room Air 06/17/17 04:13 36.8 81 18 134/87 (103) 96 Room Air 06/17/17 04:02 Room Air 06/17/17 00:02 Room Air 06/16/17 23:38 36.8 85 18 137/93 (108) 95 Room Air 06/16/17 20:00 Room Air 06/16/17 19:29 36.6 69 20 145/89 (107) 96 Room Air 06/16/17 16:00 97 Room Air 06/16/17 15:05 36.7 83 20 142/89 (106) 96 Room Air 06/16/17 12:21 37.0 84 16 130/77 (94) 96 Room Air 06/16/17 12:00 97 Room Air Physical Exam General Appearance: WD/WN, no apparent distress Neck: supple, no adenopathy Respiratory/Chest: chest non-tender, lungs clear, normal breath sounds Cardiovascular: regular rate, rhythm, no edema Abdomen: normal bowel sounds, non tender, soft Extremities: normal range of motion, + pertinent finding (tremors noted in bilateral hands) Skin: normal color Lymphatic: no adenopathy Laboratory Results Last 24 Hours Test 06/17/17 05:47 Sodium Level 139 mmol/L Potassium Level 4.1 mmol/L Chloride Level 108 mmol/L Carbon Dioxide Level 25 mmol/L Anion Gap 6.0 mmol/L Blood Urea Nitrogen 7 mg/dl Creatinine 0.72 mg/dl Est Creatinine Clear Calc Drug Dose 117.6 ml/min Estimated GFR () 126.1 Estimated GFR (Non- 108.8 BUN/Creatinine Ratio 9.1 Random Glucose 81 mg/dl Calcium Level 8.8 mg/dl Magnesium Level 2.1 mg/dl Assessment and Plan 51 y/o M Hx ETOH abuse and withdrawal seizures - pt has been admitted multiple times for detox and continues to relapse. He states that he had quit for a short period and then resumed drinking due to the holidays. He presents requesting detox once again. He denies CP, SOB, N/V/D, fevers or confusion. He is exhibiting mild tremors at the time of admission. Initial labs are notable for hypomagnesemia, hypokalemia and hypoglycemia. 1) ETOH abuse and withdrawal - placed on telemetry due to history of DTs and seizures - Scheduled Librium, PRN Ativan, IVF and daily banana bag. Transitioned patient to PO vitamins and folic acid Patient Librium is also increasing from 25 to 50 mg PO TID. will order PT in AM. 2) HTN - cont Metoprolol BP at goal Full code - SCDs due to DT and fall risk Continued [facility] stay due to: home environment unsafe for pt Discharge planning: home
[2017-06-17] MEDS ORDERED: CHLORDIAZEPOXIDE 25 MG CAP PO STA (11:09)
[2017-06-17] MEDS: MIRTAZAPINE TAB 15 MG TAB PO SCH (20:20)
[2017-06-17] MEDS: ALUMINUM/MAGNESIUM/SIMETH (MAALOX MAX) 30 ML UDC PO PRN (20:20)
[2017-06-17] MEDS: TRAZODONE HCL 50 MG TAB PO SCH (20:21)
[2017-06-18] VITALS (9 sets, daily range): BP systolic 107–134; BP diastolic 64–93; PULSE 78–91; TEMP 36.8–37.1; O2SAT 94–98
[2017-06-18] MEDS: CHLORDIAZEPOXIDE 25 MG CAP PO SCH ×3 (08:14→21:21)
[2017-06-18] MEDS: MULTIVITAMIN TAB PO SCH (08:14)
[2017-06-18] MEDS: THIAMINE HCL 100 MG TAB PO SCH (08:15)
[2017-06-18] MEDS: METOPROLOL TARTRATE 25 MG TAB PO SCH ×3 (08:16→21:21)
[2017-06-18] MEDS: POTASSIUM CHLORIDE 20 MEQ TABCR PO SCH (08:17)
[2017-06-18] MEDS: CYANOCOBALAMIN 500 MCG TAB (VIT B-12) PO SCH (08:17)
[2017-06-18] MEDS: MAGNESIUM OXIDE 400 MG TAB PO SCH ×2 (08:17→21:21)
[2017-06-18 09:39] LABS: CALCIUM 8.9 mg/dl (8.5-10.1); CREATININE 0.84 mg/dl (0.60-1.40); POTASSIUM 4.1 mmol/L (3.5-5.1)
[2017-06-18] MEDS ORDERED: COUGH DROP (SUGAR FREE) LOZ 24 LOZ/1 BOX ONE (14:23)
[2017-06-18] MEDS: TRAZODONE HCL 50 MG TAB PO SCH (21:20)
[2017-06-18] MEDS: MIRTAZAPINE TAB 15 MG TAB PO SCH (21:21)
--- NOTE | 2017-06-18 22:28 | Progress Note ---
Subjective Date of Service: Jun 18, 2017. Subjective Pt evaluation today including: conversation w/ patient, physical exam 51 yo male with mild tremors. He reports still feeling somewhat fatigued. He states his last drink was Wednesday evening. Patient denies any delusion, chest pain, nausea, vomiting, diarrhea. Problem List Medical Problems: (1) Alcohol abuse Status: Acute (2) Alcohol intoxication Status: Acute (3) Alcohol withdrawal Status: Acute (4) Alcohol withdrawal Status: Acute (5) Alcohol withdrawal Status: Acute (6) Alcohol withdrawal Status: Acute (7) Alcohol withdrawal Status: Acute (8) Alcoholic Status: Acute (9) Alcoholic hepatitis Status: Acute (10) Anxiety Status: Acute (11) Anxiety Status: Acute (12) Atrial fibrillation with RVR Status: Acute (13) Chest pain Status: Acute (14) Chest pain Status: Acute (15) Dehydration Status: Acute (16) Dehydration Status: Acute (17) Elevated LFTs Status: Acute (18) Facial laceration Status: Acute (19) Fall Status: Acute (20) High anion gap metabolic acidosis Status: Acute (21) Hypokalemia Status: Acute (22) Hypophosphatemia Status: Acute (23) Lip laceration Status: Acute (24) Malnutrition Status: Acute (25) Malnutrition Status: Acute (26) Seizure Status: Acute (27) Thrombocytopenia Status: Acute Review of Systems Constitutional: No fever, No chills Eyes: No worsening of vision ENT: No hearing loss Respiratory: No cough, No sputum Cardiac: No chest pain Abdomen: No pain, No nausea Neurologic: No memory loss, No paralysis Psychiatric: No depression symptoms Heme: No abnormal bleeding/bruising Endo: No fatigue Skin: No rash, No itch All Other Systems: Reviewed and Negative Medications Current Inpatient Medications Medications (Trade) Dose Ordered Sig/Dyan Route Start Time Stop Time Status Last Admin Dose Admin Lorazepam (Ativan Inj) 2 mg Q3H PRN IV 06/16/17 04:15 07/16/17 04:14 06/17/17 03:55 2 MG Acetaminophen (Tylenol Tab) 650 mg Q4H PRN PO 06/16/17 04:15 07/16/17 04:14 Al Hydrox/Mg Hydrox/Simethicone (Maalox Max Susp) 15 ml Q4H PRN PO 06/16/17 04:15 07/16/17 04:14 06/17/17 20:20 15 ML Magnesium Hydroxide (Milk Of Magnesia Susp) 30 ml Q12H PRN PO 06/16/17 04:15 07/16/17 04:14 Ondansetron HCl (Zofran Inj) 4 mg Q6H PRN IV 06/16/17 04:15 07/16/17 04:14 06/16/17 13:07 4 MG Polyethylene (Miralax Powder Packet) 17 gm DAILY PRN PO 06/16/17 04:15 07/16/17 04:14 Magnesium Oxide (Mag-Ox Tab) 400 mg BID PO 06/16/17 09:00 07/16/17 08:59 06/18/17 21:21 400 MG Metoprolol Tartrate (Lopressor Tab) 12.5 mg TID PO 06/16/17 09:00 07/16/17 08:59 06/18/17 21:21 12.5 MG Mirtazapine (Remeron Tab) 15 mg HS PO 06/16/17 21:00 07/16/17 20:59 06/18/17 21:21 15 MG Multivitamins (Multivitamin Tab) 1 tab DAILY PO 06/16/17 09:00 07/16/17 08:59 06/18/17 08:14 1 TAB Potassium Chloride (Klor-Con Tab) 20 meq DAILY PO 06/16/17 09:00 07/16/17 08:59 06/18/17 08:17 20 MEQ Trazodone HCl (Desyrel Tab) 50 mg HS PO 06/16/17 21:00 07/16/17 20:59 06/18/17 21:20 50 MG Cyanocobalamin (Vitamin B-12 Tab) 1,000 mcg DAILY PO 06/16/17 09:00 07/16/17 08:59 06/18/17 08:17 1,000 MCG Chlordiazepoxide (Librium Cap) 50 mg TID PO 06/17/17 15:00 07/16/17 14:59 06/18/17 21:21 50 MG Thiamine HCl (Vitamin B-1 Tab) 100 mg QAM PO 06/18/17 09:00 07/18/17 08:59 06/18/17 08:15 100 MG Folic Acid (Folvite Tab) 1 mg QAM PO 06/18/17 09:00 07/18/17 08:59 06/18/17 08:16 1 MG Objective Vital Signs Date Time Temp Pulse Resp B/P (MAP) Pulse Ox O2 Delivery O2 Flow Rate FiO2 06/18/17 20:33 Room Air 06/18/17 19:49 36.8 90 18 109/79 (89) 94 Room Air 06/18/17 16:35 Room Air 06/18/17 16:09 36.9 91 18 112/64 (80) 98 Room Air 06/18/17 12:06 37.0 91 18 134/93 (107) 95 Room Air 06/18/17 12:00 Room Air 06/18/17 08:00 Room Air 06/18/17 07:49 37.0 78 18 123/86 (98) 94 Room Air 06/18/17 04:45 36.8 80 18 107/73 (84) 96 Room Air 06/18/17 04:00 Room Air 06/18/17 00:40 37.1 79 18 121/81 (94) 94 Room Air 06/18/17 00:38 36.9 87 18 97 06/18/17 00:01 97 Room Air 06/17/17 23:38 36.9 87 18 122/81 (95) 94 Room Air Physical Exam Comments: General Appearance: WD/WN, no apparent distress Neck: supple, no adenopathy Respiratory/Chest: chest non-tender, lungs clear, normal breath sounds Cardiovascular: regular rate, rhythm, no edema Abdomen: normal bowel sounds, non tender, soft Extremities: normal range of motion, + pertinent finding (tremors noted in bilateral hands) Skin: normal color Lymphatic: no adenopathy Laboratory Results Last 24 Hours Test 06/18/17 07:47 Sodium Level 136 mmol/L Potassium Level 4.1 mmol/L Chloride Level 105 mmol/L Carbon Dioxide Level 23 mmol/L Anion Gap 8.0 mmol/L Blood Urea Nitrogen 11 mg/dl Creatinine 0.84 mg/dl Est Creatinine Clear Calc Drug Dose 100.8 ml/min Estimated GFR () 118.3 Estimated GFR (Non- 102.1 BUN/Creatinine Ratio 13.3 Random Glucose 82 mg/dl Calcium Level 8.9 mg/dl Magnesium Level 2.3 mg/dl Assessment and Plan 51 y/o M Hx ETOH abuse and withdrawal seizures - pt has been admitted multiple times for detox and continues to relapse. He states that he had quit for a short period and then resumed drinking due to the holidays. He presents requesting detox once again. He denies CP, SOB, N/V/D, fevers or confusion. He is exhibiting mild tremors at the time of admission. Initial labs are notable for hypomagnesemia, hypokalemia and hypoglycemia. 1) ETOH abuse and withdrawal - placed on telemetry due to history of DTs and seizures - Scheduled Librium, PRN Ativan, IVF and daily banana bag. Transitioned patient to PO vitamins and folic acid Will continue librium at 50 mg PO TID. Patient is ambulating today and will participate in PT. Today it has been 72 hours aprox. since last drink. Will likely discharge tomorrow or Wednesday. 2) HTN - cont Metoprolol BP at goal Full code - SCDs due to DT and fall risk Continued [facility] stay due to: home environment unsafe for pt Discharge planning: home
[2017-06-19] VITALS (7 sets, daily range): BP systolic 105–121; BP diastolic 71–84; PULSE 83–99; TEMP 36.4–37; O2SAT 94–97
[2017-06-19] MEDS: CHLORDIAZEPOXIDE 25 MG CAP PO SCH ×3 (08:23→20:57)
[2017-06-19] MEDS: METOPROLOL TARTRATE 25 MG TAB PO SCH ×3 (08:24→20:58)
[2017-06-19] MEDS: THIAMINE HCL 100 MG TAB PO SCH (08:24)
[2017-06-19] MEDS: MULTIVITAMIN TAB PO SCH (08:24)
[2017-06-19] MEDS: MAGNESIUM OXIDE 400 MG TAB PO SCH ×2 (08:24→21:00)
[2017-06-19] MEDS: POTASSIUM CHLORIDE 20 MEQ TABCR PO SCH (08:24)
[2017-06-19] MEDS: CYANOCOBALAMIN 500 MCG TAB (VIT B-12) PO SCH (08:24)
[2017-06-19] MEDS: ALUMINUM/MAGNESIUM/SIMETH (MAALOX MAX) 30 ML UDC PO PRN (19:45)
[2017-06-19] MEDS: MIRTAZAPINE TAB 15 MG TAB PO SCH (21:00)
[2017-06-19] MEDS: TRAZODONE HCL 50 MG TAB PO SCH (21:00)
--- NOTE | 2017-06-19 21:07 | Progress Note ---
Subjective Date of Service: Jun 19, 2017. Subjective Patient reports that he continues to have tremors in his upper extremities and he feels weak and fatigued. Problem List Medical Problems: (1) Alcohol abuse Status: Acute (2) Alcohol intoxication Status: Acute (3) Alcohol withdrawal Status: Acute (4) Alcohol withdrawal Status: Acute (5) Alcohol withdrawal Status: Acute (6) Alcohol withdrawal Status: Acute (7) Alcohol withdrawal Status: Acute (8) Alcoholic Status: Acute (9) Alcoholic hepatitis Status: Acute (10) Anxiety Status: Acute (11) Anxiety Status: Acute (12) Atrial fibrillation with RVR Status: Acute (13) Chest pain Status: Acute (14) Chest pain Status: Acute (15) Dehydration Status: Acute (16) Dehydration Status: Acute (17) Elevated LFTs Status: Acute (18) Facial laceration Status: Acute (19) Fall Status: Acute (20) High anion gap metabolic acidosis Status: Acute (21) Hypokalemia Status: Acute (22) Hypophosphatemia Status: Acute (23) Lip laceration Status: Acute (24) Malnutrition Status: Acute (25) Malnutrition Status: Acute (26) Seizure Status: Acute (27) Thrombocytopenia Status: Acute Review of Systems Constitutional: No fever, No chills ENT: No hearing loss, No unusual epistaxis Respiratory: No cough Cardiac: No chest pain, No orthopnea Abdomen: No pain, No nausea Musculoskeletal: No joint pain Psychiatric: No depression symptoms, No anhedonism Endo: No fatigue Skin: No rash, No itch All Other Systems: Reviewed and Negative Medications Current Inpatient Medications Medications (Trade) Dose Ordered Sig/Dyan Route Start Time Stop Time Status Last Admin Dose Admin Lorazepam (Ativan Inj) 2 mg Q3H PRN IV 06/16/17 04:15 07/16/17 04:14 06/17/17 03:55 2 MG Acetaminophen (Tylenol Tab) 650 mg Q4H PRN PO 06/16/17 04:15 07/16/17 04:14 Al Hydrox/Mg Hydrox/Simethicone (Maalox Max Susp) 15 ml Q4H PRN PO 06/16/17 04:15 07/16/17 04:14 06/19/17 19:45 15 ML Magnesium Hydroxide (Milk Of Magnesia Susp) 30 ml Q12H PRN PO 1/3/18 04:15 07/16/17 04:14 Ondansetron HCl (Zofran Inj) 4 mg Q6H PRN IV 06/16/17 04:15 07/16/17 04:14 06/16/17 13:07 4 MG Polyethylene (Miralax Powder Packet) 17 gm DAILY PRN PO 06/16/17 04:15 07/16/17 04:14 06/20/17 12:57 17 GM Magnesium Oxide (Mag-Ox Tab) 400 mg BID PO 06/16/17 09:00 07/16/17 08:59 06/21/17 07:46 400 MG Metoprolol Tartrate (Lopressor Tab) 12.5 mg TID PO 06/16/17 09:00 07/16/17 08:59 06/21/17 07:47 12.5 MG Mirtazapine (Remeron Tab) 15 mg HS PO 06/16/17 21:00 07/16/17 20:59 06/20/17 21:05 15 MG Multivitamins (Multivitamin Tab) 1 tab DAILY PO 06/16/17 09:00 07/16/17 08:59 06/21/17 07:46 1 TAB Potassium Chloride (Klor-Con Tab) 20 meq DAILY PO 06/16/17 09:00 07/16/17 08:59 06/21/17 07:46 20 MEQ Trazodone HCl (Desyrel Tab) 50 mg HS PO 06/16/17 21:00 07/16/17 20:59 06/20/17 21:04 50 MG Cyanocobalamin (Vitamin B-12 Tab) 1,000 mcg DAILY PO 06/16/17 09:00 07/16/17 08:59 06/21/17 07:46 1,000 MCG Chlordiazepoxide (Librium Cap) 50 mg TID PO 06/17/17 15:00 07/16/17 14:59 06/21/17 07:46 50 MG Thiamine HCl (Vitamin B-1 Tab) 100 mg QAM PO 06/18/17 09:00 07/18/17 08:59 06/21/17 07:46 100 MG Folic Acid (Folvite Tab) 1 mg QAM PO 06/18/17 09:00 07/18/17 08:59 06/21/17 07:46 1 MG Objective Vital Signs Date Time Temp Pulse Resp B/P (MAP) Pulse Ox O2 Delivery O2 Flow Rate FiO2 06/19/17 20:55 89 117/82 (94) 06/19/17 19:51 37.0 95 18 108/75 (86) 94 Room Air 06/19/17 16:30 Room Air 06/19/17 15:12 36.9 99 16 116/80 (92) 95 Room Air 06/19/17 12:30 Room Air 06/19/17 11:35 36.4 86 16 121/84 (96) 96 Room Air 06/19/17 08:15 Room Air 06/19/17 07:08 36.8 84 16 117/83 (94) 95 Room Air 06/19/17 04:00 97 Room Air 06/19/17 04:00 36.8 83 16 105/71 (82) 95 Room Air 06/19/17 00:00 97 Room Air 06/18/17 23:49 36.8 86 16 113/77 (89) 96 Room Air Physical Exam Comments: General Appearance: WD/WN, no apparent distress Neck: supple, no adenopathy Respiratory/Chest: chest non-tender, lungs clear, normal breath sounds Cardiovascular: regular rate, rhythm, no edema Abdomen: normal bowel sounds, non tender, soft Extremities: normal range of motion, + pertinent finding (tremors noted in bilateral hands) Skin: normal color Lymphatic: no adenopathy Assessment and Plan 51 y/o M Hx ETOH abuse and withdrawal seizures - pt has been admitted multiple times for detox and continues to relapse. He states that he had quit for a short period and then resumed drinking due to the holidays. He presents requesting detox once again. He denies CP, SOB, N/V/D, fevers or confusion. He is exhibiting mild tremors at the time of admission. Initial labs are notable for hypomagnesemia, hypokalemia and hypoglycemia. 1) ETOH abuse and withdrawal - placed on telemetry due to history of DTs and seizures - Scheduled Librium, PRN Ativan, IVF and daily banana bag. Transitioned patient to PO vitamins and folic acid Will continue librium at 50 mg PO TID. Patient is ambulating today and will participate in PT. Today it has been 96 hours aprox. since last drink. Will likely dischargeon Wednesday. 2) HTN - cont Metoprolol BP at goal Full code - SCDs due to DT and fall risk Continued [facility] stay due to: home environment unsafe for pt Discharge planning: home
[2017-06-20] VITALS (7 sets, daily range): BP systolic 104–131; BP diastolic 70–82; PULSE 82–100; TEMP 36.1–37.1; O2SAT 93–97
[2017-06-20] MEDS: METOPROLOL TARTRATE 25 MG TAB PO SCH ×3 (08:00→21:06)
[2017-06-20] MEDS: CHLORDIAZEPOXIDE 25 MG CAP PO SCH ×3 (08:00→21:04)
[2017-06-20] MEDS: MULTIVITAMIN TAB PO SCH (08:01)
[2017-06-20] MEDS: CYANOCOBALAMIN 500 MCG TAB (VIT B-12) PO SCH (08:01)
[2017-06-20] MEDS: MAGNESIUM OXIDE 400 MG TAB PO SCH ×2 (08:01→21:04)
[2017-06-20] MEDS: THIAMINE HCL 100 MG TAB PO SCH (08:01)
[2017-06-20] MEDS: POTASSIUM CHLORIDE 20 MEQ TABCR PO SCH (08:01)
[2017-06-20] MEDS: TRAZODONE HCL 50 MG TAB PO SCH (21:04)
[2017-06-20] MEDS: MIRTAZAPINE TAB 15 MG TAB PO SCH (21:05)
--- NOTE | 2017-06-20 22:20 | Progress Note ---
Subjective Date of Service: Jun 20, 2017. Subjective Pt evaluation today including: conversation w/ patient, physical exam 51 yo M reports feeling better. But today complains of diarrhea. However, discussing with nurse, he had just had miralax as he was constipated. He reports that his tremors have improved but he still feels somewhat fatigued. Patient reports he does not have a place to stay today and a friend will pick him up tomorrow. Problem List Medical Problems: (1) Alcohol abuse Status: Acute (2) Alcohol intoxication Status: Acute (3) Alcohol withdrawal Status: Acute (4) Alcohol withdrawal Status: Acute (5) Alcohol withdrawal Status: Acute (6) Alcohol withdrawal Status: Acute (7) Alcohol withdrawal Status: Acute (8) Alcoholic Status: Acute (9) Alcoholic hepatitis Status: Acute (10) Anxiety Status: Acute (11) Anxiety Status: Acute (12) Atrial fibrillation with RVR Status: Acute (13) Chest pain Status: Acute (14) Chest pain Status: Acute (15) Dehydration Status: Acute (16) Dehydration Status: Acute (17) Elevated LFTs Status: Acute (18) Facial laceration Status: Acute (19) Fall Status: Acute (20) High anion gap metabolic acidosis Status: Acute (21) Hypokalemia Status: Acute (22) Hypophosphatemia Status: Acute (23) Lip laceration Status: Acute (24) Malnutrition Status: Acute (25) Malnutrition Status: Acute (26) Seizure Status: Acute (27) Thrombocytopenia Status: Acute Review of Systems Constitutional: No fever, No chills Respiratory: No cough, No sputum Cardiac: No chest pain, No orthopnea Abdomen: No pain, No nausea Neurologic: No memory loss, No paralysis Psychiatric: No depression symptoms, No anhedonism Skin: No rash, No itch Objective Vital Signs Date Time Temp Pulse Resp B/P (MAP) Pulse Ox O2 Delivery O2 Flow Rate FiO2 06/20/17 20:06 36.6 93 20 117/80 (92) 95 Room Air 06/20/17 20:00 Room Air 06/20/17 16:30 Room Air 06/20/17 15:00 37.1 99 16 121/82 (95) 94 Room Air 06/20/17 12:30 Room Air 06/20/17 11:36 37.0 97 16 131/82 (98) 96 Room Air 06/20/17 08:30 Room Air 06/20/17 07:35 37.0 92 18 116/82 (93) 96 Room Air 06/20/17 04:56 36.7 82 17 109/75 (86) 96 Room Air 06/20/17 04:00 Room Air 06/20/17 00:01 36.8 87 16 110/76 (87) 95 Room Air 06/20/17 00:00 Room Air Physical Exam General Appearance: WD/WN, no apparent distress Neck: supple, no adenopathy Respiratory/Chest: chest non-tender, lungs clear, normal breath sounds Cardiovascular: regular rate, rhythm, no edema Abdomen: normal bowel sounds, non tender, soft Extremities: normal range of motion, non-tender Lymphatic: no adenopathy Assessment and Plan 51 y/o M Hx ETOH abuse and withdrawal seizures - pt has been admitted multiple times for detox and continues to relapse. He states that he had quit for a short period and then resumed drinking due to the holidays. He presents requesting detox once again. He denies CP, SOB, N/V/D, fevers or confusion. He is exhibiting mild tremors at the time of admission. Initial labs are notable for hypomagnesemia, hypokalemia and hypoglycemia. 1) ETOH abuse and withdrawal - placed on telemetry due to history of DTs and seizures - Scheduled Librium, PRN Ativan, IVF and daily banana bag. On PO vitamins and folic acid Will continue librium at 50 mg PO TID. Patient is ambulating today and will participate in PT. Today it has been 110 hours aprox. since last drink. Discharge held as freezing temps and patient did not have ride today. Will monitor for one more day. Patient did have a new complaint but it does not make sense. Patient told nurse he was constipated and then told me he had diarhea with multiple loose stools. will hold miralax and any laxatives and will monitor BM 2) HTN - cont Metoprolol BP at goal Full code - SCDs due to DT and fall risk Continued [facility] stay due to: home environment unsafe for pt Discharge planning: home
[2017-06-21 04:01] VITALS: BP 123/81; PULSE 78; TEMP 36.4; O2SAT 97
[2017-06-21 07:35] VITALS: BP 126/82; PULSE 85; TEMP 36.4; O2SAT 97
[2017-06-21] MEDS: MULTIVITAMIN TAB PO SCH (07:46)
[2017-06-21] MEDS: CYANOCOBALAMIN 500 MCG TAB (VIT B-12) PO SCH (07:46)
[2017-06-21] MEDS: POTASSIUM CHLORIDE 20 MEQ TABCR PO SCH (07:46)
[2017-06-21] MEDS: CHLORDIAZEPOXIDE 25 MG CAP PO SCH (07:46)
[2017-06-21] MEDS: THIAMINE HCL 100 MG TAB PO SCH (07:46)
[2017-06-21] MEDS: MAGNESIUM OXIDE 400 MG TAB PO SCH (07:46)
[2017-06-21] MEDS: METOPROLOL TARTRATE 25 MG TAB PO SCH (07:47)
[2017-06-21] MEDS ORDERED: LBR25 PO (10:39)
--- NOTE | 2017-06-21 10:40 | Discharge Instructions ---
Discharge Instructions Date of Service Jun 21, 2017. Admission Reason for Admission: Alcohol Withdrawal, Hypokalemia Discharge Discharge Diagnosis / Problem: Alcohol withdrawal, detox Discharge Goals Goal(s): Improve function, Increase independence Activity Recommendations Activity Limitations: resume your previous activity . Instructions / Follow-Up Instructions / Follow-Up Medications: - LIBRIUM: take 25mg twice a day for one week then once a day for a week to help with withdrawal symptoms Vitals and lab work stable, withdrawal process complete Current Hospital Diet Patient's current hospital diet: AHA Diet (Heart Healthy) Discharge Diet Recommended Diet: AHA Diet (Heart Healthy) Pending Studies Studies pending at discharge: no Medical Emergencies . Who to Call and When: Medical Emergencies: If at any time you feel your situation is an emergency, please call 911 immediately. . Non-Emergent Contact Non-Emergency issues call your: Primary Care Provider Call Non-Emergent contact if: you have any medication questions . . "Provider Documentation" section prepared by Junior Rodas. . VTE Core Measure Inpt VTE Proph given/why not?: SCD's [place] Drug Monitoring Program Search Results: no issues identified
[2017-06-21 11:08] VITALS: BP 126/82; PULSE 85; TEMP 36.4; O2SAT 97
[2017-06-21 11:18] VITALS: BP 109/77; PULSE 93; TEMP 36.6; O2SAT 98
--- NOTE | 2017-06-21 14:12 | Discharge Summary ---
Discharge Summary Date of Service Jun 21, 2017. Discharge Summary Admission Date: Jun 16, 2017 at 04:09 Discharge Date: Jun 21, 2017 Discharge Disposition: Home Principal Diagnosis: Alcohol withdrawal Procedures: none Consultations: none Medication Reconciliation New Medications: Chlordiazepoxide (Chlordiazepoxide HCl) 25 Mg Cap 50 MG PO BID, #21 CAP 0 Refills take twice a day for one week then once a day for a week Continued Medications: Cholecalciferol (Vitamin D3) 2,000 Unit Cap 2000 INTER.UNIT PO DAILY, CAP Cyanocobalamin (Vitamin B12) 1,000 Mcg Tab 1000 MCG PO DAILY Folic Acid (Folvite) 1 Mg Tab 1 MG PO DAILY, TAB Lorazepam (Ativan) 1 Mg Tab 1 MG PO BID PRN for Anxiety/Insomnia, TAB Magnesium Oxide (Mag-Ox) 400 Mg Tab 400 MG PO BID, TAB Metoprolol Tartrate (Lopressor) (Lopressor) 25 Mg Tab 12.5 MG PO TID, TAB Mirtazapine (Remeron) 15 Mg Tab 15 MG PO HS, #30 Multivitamin (Multivitamin) Tab 1 TAB PO DAILY Naltrexone Hcl (Naltrexone Hcl) 50 Mg Tab 50 MG PO DAILY for 30 Days, #30 TAB 1 Refill Potassium Ext Rel (Klor-Con) 20 Meq Tabcr 20 MEQ PO DAILY, TAB Thiamine Mononitrate (Vitamin B1) 100 Mg Tab 100 MG PO BID Trazodone HCl (Trazodone HCl) 50 Mg Tab 50 MG PO HS Triamcinolone Acetonide (Nasal (Nasacort Allergy 24Hr) 55 Mcg/Act Spr 1 SPRAY PRANAY BID PRN for ALLERGIC REACTION Discharge Exam Patient feeling rested, less tremors, less anxiety, feels ready to go home. Review of Systems: Constitutional: No fever, No chills, No sweats, No weight loss, No weakness , No fatigue, No problem reported Eyes: No worsening of vision, No eye pain, No redness, No discharge, No diplopia, No problem reported ENT: No hearing loss, No unusual epistaxis, No nasal symptoms, No sore throat, No tinnitus, No dental problems, No trouble swallowing, No problem reported Respiratory: No cough, No sputum, No wheezing, No shortness of breath, No dyspnea on exertion, No dyspnea at rest, No hemoptysis, No problem reported Cardiovascular: No chest pain, No orthopnea, No PND, No edema, No claudication, No palpitations, No problem reported Abdomen: No pain, No nausea, No vomiting, No diarrhea, No constipation, No GI bleeding, No problem reported Musculoskeletal: No joint pain, No muscle pain, No swelling, No calf pain, No problem reported Genitourinary - Male: No hematuria, No dysuria, No urinary frequency, No urinary urgency Neurologic: No memory loss, No paralysis, No weakness, No numbness/tingling , No vertigo, No balance problems, No problem reported Psychiatric: + depression symptoms, + anxiety, + substance abuse, No anhedonism, No insomnia, No problem reported Endocrine: No fatigue, No excessive thirst, No excessive urination, No problem reported Hematologic / Lymphatic: No abnormal bleeding/bruising, No clotting problems , No swollen lymph nodes, No night sweats, No problem reported Integumentary: No rash, No itch, No new/changing skin lesions, No color change, No bleeding, No problem reported Physical Exam: General Appearance: WD/WN, no apparent distress Eyes: normal inspection, EOMI, sclerae normal ENT: normal ENT inspection, hearing grossly normal, pharynx normal Neck: supple, no adenopathy, no JVD, trachea midline Respiratory/Chest: chest non-tender, lungs clear, normal breath sounds, no respiratory distress, no accessory muscle use Cardiovascular: regular rate, rhythm, no edema, no gallop, no JVD, no murmur Abdomen / GI: normal bowel sounds, non tender, soft, no organomegaly Extremities: normal inspection, no calf tenderness, normal capillary refill , no pedal edema, normal range of motion, pelvis stable Neurologic/Psychiatric: training lead II-XII nml as tested, no motor/sensory deficits , alert, normal mood/affect, normal reflexes, oriented x 3 Skin: normal color, warm/dry, no rash Lymphatic: no adenopathy Hospital Course 1) ETOH abuse and withdrawal - placed on telemetry due to history of DTs and seizures - Scheduled Librium, PRN Ativan, IVF and daily banana bag. no complications with withdrawal patient stable for 48 hours on Librium will d/c on Librium BID x 1 week then daily x 1 week then stop multiple admissions for alcohol, not interested in rehab poor social support, does not have a physician 2) HTN - cont Metoprolol BP at goal Total Time Spent: Less than 30 minutes This includes examination of the patient, discharge planning, medication reconciliation, and communication with other providers. Discharge Instructions Please refer to the electronic Patient Visit Report (Discharge Instructions) for additional information.
== END 2017-06-21 12:30 | disposition home or self-care (01) | DRG 897 ==
LOC: C.EDB 01:37 → C.2T 04:09 → ENRESERV 06:38 → C.MED 06-18 00:46
PROVIDERS: ADMIT Internal Medicine; ATTEND Internal Medicine
DX: F10.239 Alcohol dependence with withdrawal, unspecified (principal); F10.10 Alcohol abuse, uncomplicated; E86.0 Dehydration; E83.42 Hypomagnesemia; E87.6 Hypokalemia; I10 Essential (primary) hypertension; Z79.899 Other long term (current) drug therapy; Z83.3 Family history of diabetes mellitus

== ENCOUNTER 2017-06-28 09:35 | Emergency (ER) | payer OTHER ==
[~2017-06-28] VITALS: Ht 162.6 cm; Wt 82.8 kg
[~2017-06-28 09:35] MED LIST changes: +ATV/1 PO; -ATV2 PO; +DSY/50 PO; +LBR25 PO; -LPR25 PO; -MCRK20 PO; +METO25TA56 PO; -NALT50TA16 PO; +NALT50TA5 PO; +POTA20TA16 PO; -THIA100T11 PO; +THIA1TAB11 PO
[2017-06-28 09:42] VITALS: BP 131/87; PULSE 110; TEMP 36.9; O2SAT 96; Ht 162.6 cm; Wt 82.8 kg
--- NOTE | 2017-06-28 09:45 | EMERGENCY ROOM VISIT NOTE ---
History Report prepared by Kandi: Jose Ratliff Under the Supervision of: Dr. Scarlet Collins M.D. First contact with patient: 09:41 Chief Complaint: ANXIETY Stated Complaint: ANXIETY, TREMORS History of Present Illness The patient is a 51 year old male with a history of alcohol abuse who presents to the Emergency Room with complaints of worsening anxiety over the past few days. He states that he was discharged from here a week ago with a prescription for Librium, and he says that he did not need it that day when he went home, but then he lost the Librium. The patient states that he has been drinking a few beers this week to calm himself down, and he last drank 2 beers last night. He adds that in the past he would drink 6 to 8 beers per day. He states that he currently feels anxious, tense, and a little jittery, but his symptoms are not as bad as when he was here last week. He denies any fevers, vomiting, or diarrhea. The patient states that he has set himself up with Alcoholics Anonymous. Source of History: patient Onset: Over past few days Position: other (global - anxiety) Symptom Intensity: lost his Librium Quality: other (history of alcohol abuse) Associated Symptoms: No fevers, No vomiting, No diarrhea Note: Associated symptoms: Tense and jittery. Review of Systems See HPI for pertinent positives & negatives. A total of 10 systems reviewed and were otherwise negative. Past Medical & Surgical Medical Problems: (1) Alcohol overdose (2) Alcohol withdrawal (3) Alcohol withdrawal (4) Alcoholism (5) Compression fracture of body of thoracic vertebra (6) Compression fracture of L1 lumbar vertebra (7) Hypokalemia (8) Hypomagnesemia (9) Seizure-like activity Family History Cancer Diabetes mellitus Lung disease Social History Smoking Status: Never Smoker Alcohol Use: heavy Drug Use: none Marital Status: in relationship Housing Status: lives with significant other Occupation Status: employed Current/Historical Medications Scheduled Chlordiazepoxide (Chlordiazepoxide HCl), 50 MG PO BID Cholecalciferol (Vitamin D3), 2,000 INTER.UNIT PO DAILY Cyanocobalamin (Vitamin B12), 1,000 MCG PO DAILY Folic Acid (Folvite), 1 MG PO DAILY Magnesium Oxide (Mag-Ox), 400 MG PO BID Metoprolol Tartrate (Lopressor) (Lopressor), 12.5 MG PO TID Mirtazapine (Remeron), 15 MG PO HS Multivitamin (Multivitamin), 1 TAB PO DAILY Naltrexone Hcl (Naltrexone Hcl), 50 MG PO DAILY Potassium Ext Rel (Klor-Con), 20 MEQ PO DAILY Thiamine Mononitrate (Vitamin B1), 100 MG PO BID Trazodone HCl (Trazodone HCl), 50 MG PO HS Scheduled PRN Lorazepam (Ativan), 1 MG PO BID PRN for Anxiety/Insomnia Oxycodone Immediate Rel Tab (Roxicodone Ir), 1-2 TAB PO Q4H PRN for Severe Pain Triamcinolone Acetonide (Nasal (Nasacort Allergy 24Hr), 1 SPRAY PRANAY BID PRN for ALLERGIC REACTION Allergies Coded Allergies: No Known Allergies (Unverified , 06/28/17) Physical Exam Vital Signs Date Time Temp Pulse Resp B/P (MAP) Pulse Ox O2 Delivery O2 Flow Rate FiO2 06/28/17 09:42 36.9 110 20 131/87 96 Room Air Physical Exam Vital signs reviewed. General: Somewhat anxious-appearing 51 year old male but in no distress. HEENT: No scleral icterus, PERRLA, neck supple. Atraumatic. Cardiovascular: Tachycardic rate and regular rhythm, no extra sounds. Pulmonary: Clear to auscultation bilaterally, normal work of breathing. Abdomen: Soft, nontender, nondistended, positive bowel sounds. Musculoskeletal: Atraumatic, no peripheral edema. Neurologic: Patient awake alert and oriented x 3, full strength in all 4 extremities. Cranial nerves 2 through 12 grossly intact. Skin: Warm, dry, no rash Medical Decision & Procedures ED Course 951: Past medical records reviewed. The patient was evaluated in room B10. A complete history and physical examination was performed. The patient expressed understanding and agreement with the treatment plan. The patient was discharged. Medical Decision Differential diagnosis: Etiologies such as mood disorder, infection, hypoglycemia, electrolyte abnormalities, cardiac sources, intracerebral event, toxicologic, neurologic, as well as others were entertained. This patient was evaluated and appeared to be in no significant distress. Patient is slightly tachycardic however normotensive. PDMP was reviewed and the patient has not filled the previous Librium prescription. It was renewed and sent to the pharmacy directly. The patient was strongly encouraged to contact his primary care provider as well as drug and alcohol rehabilitation, [facility], as he has previously. He will return to the ER for worsening of symptoms or any medical concerns. Medication Reconcilliation Current Medication List: was personally reviewed by me Blood Pressure Screening Patient's blood pressure: Elevated blood pressure Blood pressure disposition: Elevated BP felt to be situational Impression Primary Impression: Alcohol withdrawal Scribe Attestation The scribe's documentation has been prepared under my direction and personally reviewed by me in its entirety. I confirm that the note above accurately reflects all work, treatment, procedures, and medical decision making performed by me. Departure Information Dispostion Home / Self-Care Prescriptions Chlordiazepoxide (Chlordiazepoxide HCl) 25 Mg Cap 50 MG PO BID, #21 CAP 0 Refills take twice a day for one week then once a day for a week Prov: Scarlet Collins M.D. 06/28/17 Referrals No Doctor, Assigned (PCP) Patient Instructions My [facility] Additional Instructions Diagnosis: Alcohol withdrawal Librium one tab twice a day for 1 week, then 1 tab daily for 1 week. Follow-up with your primary care physician as soon as possible. Please follow through with PAUL and Alpesh Drink plenty of clear fluids and take a daily multivitamin. See your primary care provider for further management. Return to the ER for worsening of symptoms or any medical concerns.
[2017-06-28] MEDS ORDERED: LBR25 PO (09:57)
[2017-06-29] MEDS ORDERED: OXYC1TAB3 PO (00:29)
== END 2017-06-28 10:12 | disposition home or self-care (01) ==
LOC: C.EDB 09:36
DX: F10.239 Alcohol dependence with withdrawal, unspecified (principal); E87.6 Hypokalemia; E83.42 Hypomagnesemia; Z80.9 Family history of malignant neoplasm, unspecified; Z83.3 Family history of diabetes mellitus; Z83.6 Family history of other diseases of the respiratory system; Z79.899 Other long term (current) drug therapy

== ENCOUNTER 2017-06-28 23:29 | Emergency (ER) | payer OTHER ==
[~2017-06-28] VITALS: Ht 162.6 cm; Wt 85.5 kg
[2017-06-28] MEDS ORDERED: ONDANSETRON 4MG OD TAB PO STA (23:37)
[2017-06-28] MEDS ORDERED: OXYCODONE HCL IR 5 MG TAB (IMMEDIATE RELEASE) PO STA (23:37)
[2017-06-28 23:39] VITALS: TEMP 36.8; Ht 162.6 cm; Wt 85.5 kg
--- NOTE | 2017-06-28 23:39 | EMERGENCY ROOM VISIT NOTE ---
History Report prepared by Kandi: Scot Nice Under the Supervision of: Dr. Ricky Handy D.O. First contact with patient: 23:32 Chief Complaint: FALL Stated Complaint: FALL/ANKLE INJURY History of Present Illness The patient is a 51 year old male who presents to the Emergency Room with complaints of left ankle pain after a falling episode that occurred just prior to arrival. The patient states that he was leaving a bar to walk home when he slipped on the ice and fell. He does not have any complaints aside from the left ankle, and denies hitting his head. The patient was drinking this evening and admits to having 4 pints of beer. 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 A total of 10 systems reviewed and were otherwise negative. Past Medical & Surgical Medical Problems: (1) Alcohol overdose (2) Alcohol withdrawal (3) Alcohol withdrawal (4) Alcoholism (5) Compression fracture of body of thoracic vertebra (6) Compression fracture of L1 lumbar vertebra (7) Hypokalemia (8) Hypomagnesemia (9) Seizure-like activity Family History Cancer Diabetes mellitus Lung disease Social History Smoking Status: Never Smoker Alcohol Use: heavy Drug Use: none Marital Status: in relationship Housing Status: lives with significant other Occupation Status: employed Current/Historical Medications Scheduled Chlordiazepoxide (Chlordiazepoxide HCl), 50 MG PO BID Cholecalciferol (Vitamin D3), 2,000 INTER.UNIT PO DAILY Cyanocobalamin (Vitamin B12), 1,000 MCG PO DAILY Folic Acid (Folvite), 1 MG PO DAILY Magnesium Oxide (Mag-Ox), 400 MG PO BID Metoprolol Tartrate (Lopressor) (Lopressor), 12.5 MG PO TID Mirtazapine (Remeron), 15 MG PO HS Multivitamin (Multivitamin), 1 TAB PO DAILY Naltrexone Hcl (Naltrexone Hcl), 50 MG PO DAILY Potassium Ext Rel (Klor-Con), 20 MEQ PO DAILY Thiamine Mononitrate (Vitamin B1), 100 MG PO BID Trazodone HCl (Trazodone HCl), 50 MG PO HS Scheduled PRN Lorazepam (Ativan), 1 MG PO BID PRN for Anxiety/Insomnia Oxycodone Immediate Rel Tab (Roxicodone Ir), 1-2 TAB PO Q4H PRN for Severe Pain Triamcinolone Acetonide (Nasal (Nasacort Allergy 24Hr), 1 SPRAY PRANAY BID PRN for ALLERGIC REACTION Allergies Coded Allergies: No Known Allergies (Unverified , 06/28/17) Physical Exam Vital Signs Date Time Temp Pulse Resp B/P (MAP) Pulse Ox O2 Delivery O2 Flow Rate FiO2 06/29/17 01:46 86 18 119/84 97 Room Air 06/29/17 01:02 82 20 129/83 98 Room Air 06/28/17 23:39 36.8 86 20 136/93 99 Room Air Physical Exam GENERAL: Patient is awake, alert, and anxious appearing. Patient appears to be in significant pain. EYES: The conjunctivae are clear. The pupils are round and reactive. EARS, NOSE, MOUTH AND THROAT: The nose is without any evidence of any deformity. Mucous membranes are moist tongue is midline NECK: The neck is nontender and supple. RESPIRATORY: Normal respiratory effort is noted there is no evidence of wheezing rhonchi or rales CARDIOVASCULAR: Regular rate and rhythm noted there no murmurs rubs or gallops normal S1 normal S2 GASTROINTESTINAL: The abdomen is soft. Bowel sounds are present in all quadrants. Abdomen is nontender BACK: No midline tenderness or or step-off noted range of motion in flexion extension as well as rotation no signs of muscle spasm noted MUSCULOSKELETAL/EXTREMITIES: There is full ROM of the hips, significant deformity to the left ankle. There is tenting on the medial aspect. Capillary refill was brisk. There is no tenderness over the left foot. No proximal fibular pain was noted. SKIN: There is no obvious evidence of any rash. There are no petechiae, pallor or cyanosis noted. NEUROLOGIC: Patient is awake alert and oriented x3 strength is symmetric patellar reflexes are 2+ bilaterally Medical Decision & Procedures ER Provider Diagnostic Interpretation: Radiology results as stated below per my review: ANKLE X-RAY: Reveals medial malleus fracture, which is displaced, Distal fibular fracture extends into the joint space, posterior malleus fracture noted, widening of the ankle mortis, no significant dislocation of the tibiotalar joint. Medications Administered Medications (Trade) Dose Ordered Sig/Dyan Route Start Time Stop Time Status Last Admin Dose Admin Oxycodone HCl (Roxicodone Immediate Rel Tab) 5 mg NOW STAT PO 06/28/17 23:37 06/28/17 23:38 DC 06/28/17 23:37 5 MG Ondansetron HCl (Zofran Odt) 4 mg NOW STAT PO 06/28/17 23:37 06/28/17 23:38 DC 06/28/17 23:37 4 MG Oxycodone HCl (Roxicodone Immediate Rel 5MG Home Pack) 1 homepack UD ONCE PO 06/29/17 00:30 06/29/17 00:31 DC 06/29/17 00:59 1 HOMEPACK Ondansetron HCl (ZOFRAN ODT 4MG Home Pack) 1 homepack UD ONCE PO 06/29/17 00:30 06/29/17 00:31 DC 06/29/17 00:59 1 HOMEPACK ED Course 2333: The patient was evaluated in room A12. A complete history and physical examination were performed. 2337: Ordered Zofran 4 mg PO, Oxycodone HCl 5 mg PO. Medical Decision Differential diagnosis: Etiologies such as fracture, dislocation, intra-abdominal, pneumothorax, intrathoracic , intracranial, neurologic, as well as other traumatic pathologies were entertained. Nursing notes reviewed. Additional history is obtained from the prehospital personnel. The patient is a 51-year-old male who presented to the emergency department after a fall. The patient admits that he was drinking alcoholic beverages this evening. He had a slip and fall the ice injuring his left ankle. The patient did not appear to have any other injuries. He had no neck pain or headache. There was no loss of consciousness. The patient was reevaluated multiple times and continued to have no headache or neck pain. The patient had a trimalleolar left ankle fracture. This was reduced and splinted. The patient tolerated this well. The patient had good capillary refill. He was checked multiple times after the placement of the splint. I discussed the patient's radiographic studies with him. He was treated with pain medication in the emergency department. I discussed his case with the on-call orthopedic physician. They have recommended follow-up in the office this week and then the patient would likely need to be scheduled for surgical intervention for this fracture. I discussed this with the patient and he was agreeable. He was placed on crutches. He was instructed to be nonweightbearing of his left leg and call the orthopedic physician in the morning to schedule follow-up appointment versus possible. He was also encouraged to return to the emergency apartment immediately if symptoms change worsen or the need arises. Consults Time Called: 19 Consulting Physician: Dr. Christiano Sommer [facility] Returned Call: [phone] I discussed the case with Dr. [facility]o [facility], she will follow up with the patient in the office. She notes the patient will likely get surgery. The patient will be discharged home. Impression Primary Impression: Left trimalleolar fracture Scribe Attestation The scribe's documentation has been prepared under my direction and personally reviewed by me in its entirety. I confirm that the note above accurately reflects all work, treatment, procedures, and medical decision making performed by me. Departure Information Dispostion Being Evaluated By Hospitalist Prescriptions Oxycodone Immediate Rel Tab (ROXICODONE IR) 5 Mg Tab 1-2 TAB PO Q4H Y for Severe Pain, #24 TAB Prov: Ricky Handy, DO 06/29/17 Referrals No Doctor, Assigned (PCP) Forms HOME CARE DOCUMENTATION FORM, IMPORTANT VISIT INFORMATION Patient Instructions My [facility] Additional Instructions Continue all medications as prescribed. Continue using Tylenol as directed for mild pain. If you are going to use a stronger pain medication consider using an [id number] laxative such as Colace from relax. Call the orthopedic physician in the morning to schedule follow-up appointment for this week. You will require surgery for this fracture and the sooner you get it scheduled the better your outcome will be for this ankle injury. Return to the emergency department immediately symptoms change worsen or the need arises. Continue to use the crutches and be completely nonweightbearing of your left leg as instructed in the emergency department. Problem Qualifiers Primary Impression: Left trimalleolar fracture Encounter type: initial encounter Fracture type: closed Qualified Codes: S82.852A - Displaced trimalleolar fracture of left lower leg, initial encounter for closed fracture
[2017-06-29] MEDS ORDERED: OXYC1TAB3 PO (00:29)
[2017-06-29] MEDS ORDERED: ONDANSETRON HOME PACK 4MG OD TAB PO ONE (00:30)
[2017-06-29] MEDS ORDERED: OXYCODONE IR HOME PACK PO ONE (00:30)
[2017-06-29 01:46] VITALS: BP 119/84; PULSE 86; O2SAT 97
--- NOTE | 2017-06-29 07:53 | DIAGNOSTIC IMAGING REPORT ---
LEFT ANKLE 3 VIEWS HISTORY: Left ankle pain. fall COMPARISON: None. FINDINGS: Overlying splint material obscures fine bony detail. There is a trimalleolar left ankle fracture. The medial and lateral malleolus demonstrates up to 8 mm of lateral displacement. This results in lateral subluxation of the talus in relation to the distal tibia. The distal fibular fracture is comminuted. The posterior malleolus fracture demonstrates up to 4 mm of distraction. Diffuse soft tissue swelling. No radiopaque foreign bodies. IMPRESSION: Displaced left ankle trimalleolar fracture as described above. Overlying splint material obscures fine bony detail. Electronically signed by: Fazal Olsen M.D. 06/29/2017 7:52 AM Dictated Date/Time: 06/29/2017 7:50 AM
== END 2017-06-29 01:55 | disposition home or self-care (01) ==
LOC: EDBD 23:29 → C.EDA 23:31
DX: S82.852A Displaced trimalleolar fracture of left lower leg, initial encounter for closed fracture (principal); W01.0XXA Fall on same level from slipping, tripping and stumbling without subsequent striking against object, initial encounter; Z87.81 Personal history of (healed) traumatic fracture; Z79.899 Other long term (current) drug therapy; Z80.9 Family history of malignant neoplasm, unspecified; Z83.3 Family history of diabetes mellitus

== ENCOUNTER 2017-07-02 13:16 | Observation (INO) | payer OTHER ==
[~2017-07-02] VITALS: Ht 162.6 cm; Wt 77.0 kg
--- NOTE | 2017-07-02 12:04 | History and Physical ---
History & Physical Date Jul 02, 2017. Chief Complaint left ankle pain History of Present Illness The patient is a 51 year old male with complaints of Past Medical/Surgical History Medical Problems: (1) Alcohol overdose (2) Alcohol withdrawal (3) Alcohol withdrawal (4) Alcoholism (5) Compression fracture of body of thoracic vertebra (6) Compression fracture of L1 lumbar vertebra (7) Hypokalemia (8) Hypomagnesemia (9) Seizure-like activity (10) Hx of PE (11) Sleep apnea (12) Anxiety (13) Acid reflux (14) Obesity Past surgical hx: Shoulder surgery Social Hx: No tobacco. Hx of alcohol abuse. Allergies Coded Allergies: No Known Allergies (Unverified , 06/28/17) Home Medications Scheduled Chlordiazepoxide (Chlordiazepoxide HCl), 50 MG PO BID Cholecalciferol (Vitamin D3), 2,000 INTER.UNIT PO DAILY Cyanocobalamin (Vitamin B12), 1,000 MCG PO DAILY Folic Acid (Folvite), 1 MG PO DAILY Magnesium Oxide (Mag-Ox), 400 MG PO BID Metoprolol Tartrate (Lopressor) (Lopressor), 12.5 MG PO TID Mirtazapine (Remeron), 15 MG PO HS Multivitamin (Multivitamin), 1 TAB PO DAILY Naltrexone Hcl (Naltrexone Hcl), 50 MG PO DAILY Potassium Ext Rel (Klor-Con), 20 MEQ PO DAILY Thiamine Mononitrate (Vitamin B1), 100 MG PO BID Trazodone HCl (Trazodone HCl), 50 MG PO HS Scheduled PRN Lorazepam (Ativan), 1 MG PO BID PRN for Anxiety/Insomnia Oxycodone Immediate Rel Tab (Roxicodone Ir), 1-2 TAB PO Q4H PRN for Severe Pain Triamcinolone Acetonide (Nasal (Nasacort Allergy 24Hr), 1 SPRAY PRANAY BID PRN for ALLERGIC REACTION Physical Examination Skin: warm/dry Eyes: normal inspection ENT: normal ENT inspection, pharynx normal Head: normocephalic, atraumatic Neck: supple, no adenopathy, trachea midline Respiratory/Chest: lungs clear, normal breath sounds, no respiratory distress Cardiovascular: regular rate, rhythm Abdomen / GI: normal bowel sounds, non tender Extremities: + pertinent finding (Left ankle: No ROM or strength testing done. Moderate swelling. Tender medial and lateral. NV intact. Splint in place.) Neurologic/Psych: no motor/sensory deficits, oriented x 3 Diagnosis Left trimalleolar ankle fx Plan of Treatment Recommend a left ankle ORIF trimalleolar ankle fx. All potential risks, benefits, complications, alternatives, and rehab have been discussed and the patient wishes to proceed. He will be scheduled for 07.02.17.
[~2017-07-02 13:16] MED LIST changes: +CEFAZOLIN 2000MG IV PUSH 10 ML IV SCH; +OXYC1TAB3 PO
[2017-07-02 13:47] VITALS: BP 122/81; PULSE 103; TEMP 37; O2SAT 95; Ht 162.6 cm; Wt 77.0 kg
[2017-07-02] MEDS ORDERED: PATIENT'S HEIGHT AND/OR WEIGHT NEEDED SCH (14:00)
[2017-07-02] MEDS ORDERED: BUPIVACAINE 0.5 % 5 MG/1 ML PF 10ML VIAL ONE (15:00)
--- NOTE | 2017-07-02 15:58 | History & Physical Bridge Note ---
H&P Re-Evaluation Bridge Note: I have examined the patient, reviewed the History & Physical and in the interval since the performance of the History & Physical I have noted the following changes of clinical significance: No changes noted
[2017-07-02 16:14] LABS: BASO % 0.3 %; BASO ABS # 0.03 K/uL (0-0.2); EOS % 0.6 %; EOS ABS # 0.06 K/uL (0-0.5); HEMATOCRIT 40.5 % (42-52); HEMOGLOBIN 13.5 g/dL (14.0-18.0); IG# 0.08 K/uL (0.00-0.02); LYMPH % 13.1 %; LYMPH ABS # 1.32 K/uL (1.2-3.4); MEAN CORPUSCULAR HEMOGLOBIN 31.3 pg (25-34); MEAN PLATELET VOLUME 9.7 fL (7.4-10.4); MONO % 12.4 %; MONO ABS # 1.25 K/uL (0.11-0.59); NEUT % 72.8 %; NEUT ABS # 7.34 K/uL (1.4-6.5); PLATELET COUNT 286 K/uL (130-400); RED CELL DISTRIBUTION WIDTH CV 13.5 % (11.5-14.5); RED CELL DISTRIBUTION WIDTH SD 46.3 fL (36.4-46.3); WHITE BLOOD COUNT 10.08 K/uL (4.8-10.8)
[2017-07-02 16:23] LABS: CALCIUM 8.9 mg/dl (8.5-10.1); CREATININE 0.64 mg/dl (0.60-1.40); POTASSIUM 3.7 mmol/L (3.5-5.1)
[2017-07-02 16:35] LABS: MEAN CORPUSCULAR HGB CONC 33.3 g/dl (32-36)
[2017-07-02] MEDS ORDERED: BACITRACIN 50000 UNIT VIAL ONE (16:59)
[2017-07-02] MEDS ORDERED: BUPIVACAINE/EPINEPHRINE 0.5% MPF 1:200,000 30 ML VIAL ONE (16:59)
[2017-07-02] MEDS ORDERED: MIDAZOLAM HCL 1 MG/ML 2ML VIAL ONE (17:53)
[2017-07-02] MEDS ORDERED: FENTANYL CITRATE INJ 50 MCG/1 ML 2 ML VIAL ONE ×2 (17:53→19:53)
[2017-07-02] MEDS ORDERED: DEXAMETHASONE SOD INJ 4 MG/ML VIAL ONE (18:34)
[2017-07-02] MEDS ORDERED: ONDANSETRON INJ 2 MG/ML 2 ML VIAL ONE (18:35)
[2017-07-02] MEDS ORDERED: ROCURONIUM BROMIDE 10 MG/ML 5 ML VIAL IV ONE ×2 (18:35→18:53)
[2017-07-02] MEDS ORDERED: LIDOCAINE HCL 2% 2 ML VIAL (20MG/ML) ONE (18:35)
[2017-07-02] MEDS ORDERED: PROPOFOL IV EMULSION 10 MG/ML 20 ML VIAL IV ONE (18:35)
--- NOTE | 2017-07-02 20:10 | [facility] Post Operative Brief Note ---
Immediate Operative Summary Operative Date Jul 02, 2017. Pre-Operative Diagnosis 1. Left displaced trimalleolar ankle fracture 2. Syndesmosis Disruption Post-Operative Diagnosis 1. Left displaced trimalleolar ankle fracture 2. Syndesmosis Disruption Procedure(s) Performed 1. Left Open Reduction Internal Fixation Trimalleolar Ankle Fracture 2. ORIF Syndesmosis with 3.5mm screw Surgeon Dr. Moy Cifuentes Civil Designer Surgeon(s) Akin Trotter PAC Estimated Blood Loss 15cc Findings Consistent with Post-Op Diagnosis Specimens None per surgeon Drains None Anesthesia Type General Regional Complication(s) none Disposition Accompanied Pt To Recover: no Disposition: Recovery Room / PACU
[2017-07-02] MEDS ORDERED: TRIAMCINOLONE ACET NASAL SPRAY 10.8ML BTL NAE PRN (20:15)
[2017-07-02] MEDS ORDERED: ZOLPIDEM TARTRATE 5 MG TAB PO PRN (20:15)
[2017-07-02] MEDS ORDERED: DiphenhydrAMINE HCL 50 MG/ML VIAL IV PRN (20:15)
[2017-07-02] MEDS ORDERED: ACETAMINOPHEN 325 MG TAB PO PRN (20:15)
[2017-07-02] MEDS ORDERED: ONDANSETRON INJ 2 MG/ML 2 ML VIAL IV PRN ×2 (20:15→20:45)
[2017-07-02] MEDS ORDERED: MAGNESIUM HYDROXIDE SUSP 30 ML UDC PO PRN (20:15)
[2017-07-02] MEDS ORDERED: ALUMINUM/MAGNESIUM/SIMETH (MAALOX MAX) 30 ML UDC PO PRN (20:15)
[2017-07-02] MEDS ORDERED: HYDROmorphone INJ 2 MG/ML SYR/VIAL IV PRN (20:45)
[2017-07-02] MEDS ORDERED: LABETALOL HCL IV 5 MG/ML 20ML IV PRN (20:45)
[2017-07-02] MEDS ORDERED: ATROPINE SULFATE 0.1 MG/ML 5ML SYR IV PRN (20:45)
[2017-07-02] MEDS ORDERED: KETOROLAC TROMETHAMINE 30 MG/ML VIAL IV. PRN (20:45)
[2017-07-02] MEDS ORDERED: TRAZODONE HCL 50 MG TAB PO SCH (21:00)
[2017-07-02] MEDS ORDERED: IV FLUIDS COMPLETED PRN (21:00)
[2017-07-02] MEDS: METOPROLOL TARTRATE 25 MG TAB PO SCH (21:00)
--- NOTE | 2017-07-02 21:04 | OPERATIVE REPORT ---
DATE OF OPERATION: 07/02/2017 PREOPERATIVE DIAGNOSES: 1. Left displaced trimalleolar ankle fracture. 2. Syndesmotic disruption. POSTOPERATIVE DIAGNOSES: Same. PROCEDURE: 1. Open reduction internal fixation, left displaced trimalleolar ankle fracture. 2. Open reduction internal fixation, syndesmosis with 3.5 mm screw. SURGEON: Moy Cifuentes DO. STORM CHASER: Johan reid PA-C, who was present for patient positioning, sterile prep and drape, management of retractors and instruments. He was present through the critical portions of the case including wound closure, application of sterile dressing and transport of the patient to recovery. ANESTHESIA: General with regional. SPECIMENS: None. DRAINS: None. COMPLICATIONS: None. BLOOD LOSS: 15 mL. PERTINENT HISTORY: This is a 51-year-old gentleman who had sustained a twisting injury to the left ankle. He had immediate pain and obvious displacement, unable to ambulate on the limb and transported to [facility] and then scheduled followup with my clinic at [facility]. The patient was seen and evaluated and radiographs were reviewed and noted to have a displaced unstable trimalleolar ankle fracture, left lower extremity. The patient was then scheduled for surgical fixation as indicated. All potential risks, benefits, complications, alternatives, rehab, potential for incomplete relief of symptoms, need for further surgery, DVT, PE, , persistent pain, swelling, scarring, weakness, neurovascular injury, wound complications, bone fracture, nonunion, malunion were discussed with the patient. The patient decided to proceed with the procedure as indicated. DESCRIPTION OF THE PROCEDURE: After popliteal block was administered with an adductor canal block, the patient was then taken to the operative suite, placed supine on the operating room table. I reviewed the consent and identification of proper operative site. The patient was anesthetized, LMA was placed. Tourniquet was placed high on the left thigh over cast padding. Left lower extremity was then sterilely prepped and draped in usual fashion, elevated, and exsanguinated with an Esmarch bandage and tourniquet inflated to 300 mmHg. Next, a 15 blade scalpel was used to make an incision over the lateral malleolus. The incision was deepened through subcutaneous tissue. Meticulous hemostasis was achieved with electrocautery. Full thickness skin flaps were developed. The superficial cutaneous nerve was identified, freed, retracted, and protected followed by identification of the peroneal tendon sheath which was also retracted and protected. Next, a 15 blade was then used to make a linear incision over the lateral malleolus centered over the fracture site. This was noted to be comminuted, displaced, angulated and shortened lateral malleolar fracture. There are multiple overriding butterfly fragments and some degree of dissociation at the lateral malleolus. The fracture fragments were visualized and dissection was performed in a minimal fashion to maintain soft tissue attachments of the butterfly fragments and then the limb was placed on traction and the fragments were reduced and held in place with multiple bone forceps under live fluoroscopic assistance. Next, there was noted to be no fragments that could be lagged and a bridge plate construct was adopted with a locking 1/3 tubular Synthes long plate, fixed both proximally and distally and then the fracture fragments were then lagged when appropriate through the plate with locking and nonlocking screws using multiple bone clamps. A well aligned and well reduced lateral malleolar fixation was achieved and stress views demonstrated instability of the syndesmosis. Next, 15 blade scalpel was then used to make an incision over the medial malleolus in a curvilinear fashion. The incision was then deepened through subcutaneous tissue. Meticulous hemostasis was achieved with electrocautery. Full thickness skin flaps were developed and there was no undermining performed. The saphenous vein was then retracted and protected with a House retractor and a flap of periosteum was noted have been flipped into the fracture site preventing reduction. This was then removed from the fracture site and the joint was then visualized. There was no articular cartilage damage that was obvious. The wound was copiously irrigated with sterile normal saline and a dental pick was then used to debride the fracture ends and the medial malleolar fracture was then reduced with a dental pick and a bone forcep under live fluoroscopic assistance and then secured in place with two 4.0 cannulated screws. Next, the guide pins removed and then noting the lateral view, there was a significant portion of the posterior malleolus comprising of approximately 20% of the surface area on the lateral view. A tenaculum bone forcep was placed from anterior to posterior using a small stab incision in the anterior aspect of the ankle at the distal aspect of the tibia, thus reducing the fracture fragment with the foot held in neutral and full dorsiflexion and then a single 4.0 cannulated screw was then passed from anterior to posterior under live fluoroscopic assistance stabilizing the fracture fragment in place. Next, the guide pin was removed. All wounds were copiously irrigated with sterile normal saline and then the foot was held in neutral dorsiflexion and a single 3.5 mm syndesmotic screw was passed through all 4 cortices of the fibula and tibia respectively under live fluoroscopic assistance. This was then followed by final irrigation with sterile normal saline. Final radiographs AP and lateral projections followed by closure of the lateral deep incision with 2-0 Vicryl, the medial deep incision with 2-0 Vicryl and then the dermis was closed using buried interrupted 3-0 Vicryl both medial and lateral and the skin was then closed using 4-0 nylon all incisions. Next, sterile compressive bulky plaster splint was applied and held in neutral dorsiflexion and overwrapped with an Catracho wrap. The tourniquet was released. The patient was awakened and taken to recovery in stable condition. I attest to the content of the Intraoperative Record and any orders documented therein. Any exception s are noted below.
--- NOTE | 2017-07-02 21:10 | DIAGNOSTIC IMAGING REPORT ---
L ANKLE MIN 3 VIEWS ROUTINE HISTORY: 51 years-old Male POST OP status post ORIF of displaced trimalleolar fracture COMPARISON: Left ankle radiographs 06/29/2017 TECHNIQUE: 3 views of the left ankle FINDINGS: Status post ORIF of the displaced and angulated trimalleolar fracture. Lateral plate and screw fusion of the distal fibula with improved alignment. A single syndesmotic screw traverses lateral to medial. There are 2 long cannulated screws fixating the medial malleolar fracture with a single cannulated screw projecting anterior to posterior fixating the posterior malleolus fracture. The distal tibial fractures also demonstrates improved alignment. Fine bony detail is obscured by casting material. Soft tissue swelling. IMPRESSION: Improved alignment of the trimalleolar fracture status post ORIF. The above report was generated using voice recognition software. It may contain grammatical, syntax or spelling errors. Electronically signed by: Varghese Pierce M.D. 07/02/2017 9:09 PM Dictated Date/Time: 07/02/2017 9:07 PM
--- NOTE | 2017-07-02 21:12 | DIAGNOSTIC IMAGING REPORT ---
L ANKLE 2 VIEWS HISTORY: 51 years-old Male LT ORIF ANKLE status post ORIF of the left ankle COMPARISON: Left ankle radiographs 06/29/2017 TECHNIQUE: 2 spot fluoroscopic images of the left ankle were obtained utilizing 130.4 seconds fluoroscopy time FINDINGS: There is improved alignment of the timeout or fracture status post ORIF. Lateral plate and screw fusion of the distal fibula with a single lateral to medial syndesmotic screw. 2 long cannulated screws fixate the medial malleolus fracture with a single anterior to posterior approach screw fixating the posterior malleolar fracture. The distal tibia fractures also demonstrates improved alignment. Soft tissue swelling is noted about the ankle. IMPRESSION: Improved alignment status post ORIF of the trimalleolar left ankle fracture. The above report was generated using voice recognition software. It may contain grammatical, syntax or spelling errors. Electronically signed by: Varghese Pierce M.D. 07/02/2017 9:11 PM Dictated Date/Time: 07/02/2017 9:09 PM
[2017-07-02 21:30] VITALS: BP 132/88; PULSE 87; TEMP 37; O2SAT 94
--- NOTE | 2017-07-02 21:35 | Anesthesiology Progress Note ---
Anesthesia Post Op Note Date & Time Jul 02, 2017 at 21:34 Vital Signs Pain Intensity: 0 Vital Signs Past 12 Hours Date Time Temp Pulse Resp B/P (MAP) Pulse Ox O2 Delivery O2 Flow Rate FiO2 07/02/17 21:30 37.0 87 16 132/88 07/02/17 21:10 36.6 86 16 110/74 96 Room Air 3 07/02/17 21:00 88 18 123/80 96 Nasal Cannula 2 07/02/17 20:50 79 16 116/69 99 Nasal Cannula 4 07/02/17 20:40 93 16 126/81 95 Oxymask 10 07/02/17 20:32 36.4 95 16 117/74 96 10 07/02/17 13:47 37 103 20 122/81 (95) 95 Room Air Notes Mental Status: alert / awake / arousable, participated in evaluation Pt Amnestic to Procedure: Yes Nausea / Vomiting: adequately controlled Pain: adequately controlled Airway Patency, RR, SpO2: stable & adequate BP & HR: stable & adequate Hydration State: stable & adequate Anesthetic Complications: no major complications apparent
[2017-07-02 22:05] VITALS: BP 119/80; PULSE 95; TEMP 36.7; O2SAT 97
[2017-07-02 22:30] VITALS: BP 116/64; PULSE 99; TEMP 36.5; O2SAT 97
[2017-07-02 23:40] VITALS: BP 112/72; PULSE 98; TEMP 36.6; O2SAT 95
[2017-07-02] MEDS: DOCUSATE SODIUM 100 MG CAP PO SCH (23:46)
[2017-07-02] MEDS: MAGNESIUM OXIDE 400 MG TAB PO SCH (23:47)
[2017-07-02] MEDS: MIRTAZAPINE TAB 15 MG TAB PO SCH (23:48)
[2017-07-02] MEDS: CHLORDIAZEPOXIDE 25 MG CAP PO SCH (23:50)
[2017-07-02] MEDS: PREGABALIN 75 MG CAP PO SCH (23:50)
[2017-07-02] MEDS: CEFAZOLIN IV 1,000 MG in SYRINGE 0 ML IV SCH (23:51)
[2017-07-02] MEDS: POTASSIUM CHLORIDE INJ 10 MEQ in SODIUM CHLORIDE 0.9% 1000ML 1,000 ML IV SCH (23:52)
[2017-07-03] VITALS (11 sets, daily range): BP systolic 103–138; BP diastolic 66–84; PULSE 68–105; TEMP 36.5–38.4; O2SAT 89–98
[2017-07-03 06:11] LABS: HEMATOCRIT 38.1 % (42-52); HEMOGLOBIN 12.5 g/dL (14.0-18.0); MEAN CELL VOLUME 95.7 fL (80-100); MEAN CORPUSCULAR HEMOGLOBIN 31.4 pg (25-34); MEAN CORPUSCULAR HGB CONC 32.8 g/dl (32-36); MEAN PLATELET VOLUME 9.6 fL (7.4-10.4); PLATELET COUNT 291 K/uL (130-400); RED CELL DISTRIBUTION WIDTH CV 13.7 % (11.5-14.5); RED CELL DISTRIBUTION WIDTH SD 47.3 fL (36.4-46.3); WHITE BLOOD COUNT 12.74 K/uL (4.8-10.8)
[2017-07-03 06:45] LABS: CALCIUM 8.6 mg/dl (8.5-10.1); CREATININE 0.77 mg/dl (0.60-1.40); POTASSIUM 3.8 mmol/L (3.5-5.1)
[2017-07-03 07:46] LABS: HEMOGLOBIN A1C 4.2 % (4.5-5.6)
--- NOTE | 2017-07-03 07:55 | Orthopedic Progress Note ---
Orthopedic Progress Note Date of Service Jul 03, 2017. Subjective Post OP Day: 1 Reports: feeling well Objective splint C/D/I, toes mobile Date Time Temp Pulse Resp B/P (MAP) Pulse Ox O2 Delivery O2 Flow Rate FiO2 07/03/17 04:34 36.7 95 16 103/66 (78) 96 Nasal Cannula 2.0 07/03/17 00:40 36.5 97 16 117/73 (88) 97 Nasal Cannula 2.0 07/02/17 23:40 36.6 98 16 112/72 (85) 95 Nasal Cannula 2.0 07/02/17 22:30 36.5 99 16 116/64 (81) 97 Nasal Cannula 4.0 07/02/17 22:05 36.7 95 18 119/80 (93) 97 Nasal Cannula 4.0 07/02/17 22:00 Nasal Cannula 4.0 07/02/17 21:30 37.0 87 16 132/88 07/02/17 21:30 94 Nasal Cannula 4.0 07/02/17 21:10 36.6 86 16 110/74 96 Room Air 3 07/02/17 21:00 88 18 123/80 96 Nasal Cannula 2 07/02/17 20:50 79 16 116/69 99 Nasal Cannula 4 07/02/17 20:40 93 16 126/81 95 Oxymask 10 07/02/17 20:32 36.4 95 16 117/74 96 10 07/02/17 13:47 37 103 20 122/81 (95) 95 Room Air Laboratory Results 24 Hours: Test 07/02/17 15:37 07/03/17 05:44 White Blood Count 10.08 K/uL Red Blood Count 4.31 M/uL Hemoglobin 13.5 g/dL 12.5 g/dL Hematocrit 40.5 % 38.1 % Mean Corpuscular Volume 94.0 fL Mean Corpuscular Hemoglobin 31.3 pg Mean Corpuscular Hemoglobin Concent 33.3 g/dl Platelet Count 286 K/uL Mean Platelet Volume 9.7 fL Neutrophils (%) (Auto) 72.8 % Lymphocytes (%) (Auto) 13.1 % Monocytes (%) (Auto) 12.4 % Eosinophils (%) (Auto) 0.6 % Basophils (%) (Auto) 0.3 % Neutrophils # (Auto) 7.34 K/uL Lymphocytes # (Auto) 1.32 K/uL Monocytes # (Auto) 1.25 K/uL Eosinophils # (Auto) 0.06 K/uL Basophils # (Auto) 0.03 K/uL Prothromb Time International Ratio 1.0 Prothrombin Time 10.7 SECONDS Assessment & Plan Assessment: 51 yo male stable POD #1 s/p ORIF left trimalleolar ankle fracture Plan: 1. Pain control 2. DVT prophylaxis- ASA, SCDs 3. PT/OT- gait training 4. D/C planning- home today Attending Addendum I have seen and examined the patient, and agree with JASMINA Trotter's assessment and plan. Tushar Santos MD Orthopedic Surgery
[2017-07-03] MEDS ORDERED: ACET-24 PO (07:58)
[2017-07-03] MEDS ORDERED: RXC5 PO (07:58)
[2017-07-03] MEDS ORDERED: ASPEC325 PO (07:58)
[2017-07-03] MEDS: CEFAZOLIN IV 1,000 MG in SYRINGE 0 ML IV SCH (08:00)
--- NOTE | 2017-07-03 08:01 | Discharge Instructions ---
Discharge Instructions Date of Service Jul 03, 2017. Admission Reason for Admission: Left Trimalleolar Fracture Discharge Discharge Diagnosis / Problem: Left ankle fracture Discharge Goals Goal(s): Decrease discomfort, Improve function Activity Recommendations Activity Limitations: as noted below Weightbearing Status: Left non-weightbearing . Instructions / Follow-Up Instructions / Follow-Up Nonweightbearing left lower extremity with walker/crutches. Maintain splint until follow-up with MD. Frequent ice and elevation. Current Hospital Diet Patient's current hospital diet: Regular Diet Discharge Diet Recommended Diet: Regular Diet Procedures Procedures Performed: 1. Left Open Reduction Internal Fixation Trimalleolar Ankle Fracture 2. ORIF Syndesmosis with 3.5mm screw Pending Studies Studies pending at discharge: no Laboratory Results Hemoglobin A1c Test 07/02/17 15:37 Range/Units Estimated Average Glucose 74 mg/dl Hemoglobin A1c 4.2 L 4.5-5.6 % Medical Emergencies . Who to Call and When: Medical Emergencies: If at any time you feel your situation is an emergency, please call 911 immediately. . Non-Emergent Contact Non-Emergency issues call your: Surgeon Call Non-Emergent contact if: temperature is above 101.5, your pain is not controlled, wound has increased drainage, wound has increased redness . "Provider Documentation" section prepared by Akin Trotter PA-C. . VTE Core Measure Inpt VTE Proph given/why not?: Other Anticoagulation (ASA), T.E.D. Stockings, SCD's [place] Drug Monitoring Program Search Results: patient reviewed within database, no issues identified
[2017-07-03] MEDS: POTASSIUM CHLORIDE INJ 10 MEQ in SODIUM CHLORIDE 0.9% 1000ML 1,000 ML IV SCH ×3 (08:18→23:21)
[2017-07-03] MEDS: OXYCODONE HCL IR 5 MG TAB (IMMEDIATE RELEASE) PO PRN ×4 (08:45→21:52)
[2017-07-03] MEDS ORDERED: ASPIRIN 325 MG ECTAB PO SCH (09:00)
[2017-07-03] MEDS ORDERED: MULTIVITAMIN TAB PO SCH (09:00)
[2017-07-03] MEDS: CHOLECALCIFEROL 1000 INTER.UNIT TAB PO SCH (09:48)
[2017-07-03] MEDS: METOPROLOL TARTRATE 25 MG TAB PO SCH ×3 (09:48→20:44)
[2017-07-03] MEDS: PREGABALIN 75 MG CAP PO SCH ×2 (09:48→20:44)
[2017-07-03] MEDS: CHLORDIAZEPOXIDE 25 MG CAP PO SCH ×2 (09:48→20:44)
[2017-07-03] MEDS: CYANOCOBALAMIN 500 MCG TAB (VIT B-12) PO SCH (09:49)
[2017-07-03] MEDS: THIAMINE HCL 100 MG TAB PO SCH (09:49)
[2017-07-03] MEDS: MULTIVITAMIN TAB PO SCH (09:49)
[2017-07-03] MEDS: MAGNESIUM OXIDE 400 MG TAB PO SCH ×2 (09:50→20:44)
[2017-07-03] MEDS: POTASSIUM CHLORIDE 20 MEQ TABCR PO SCH (09:50)
[2017-07-03] MEDS: DOCUSATE SODIUM 100 MG CAP PO SCH ×2 (09:51→20:43)
[2017-07-03] MEDS: NALTREXONE HCL 50 MG TAB PO SCH (10:53)
[2017-07-03] MEDS: ASPIRIN 81 MG ECTAB PO SCH (10:53)
[2017-07-03] MEDS: MoRPHine SULFATE 4 MG/ML 1 ML CARP\\VIAL IV PRN ×2 (14:18→19:19)
[2017-07-03] MEDS: MIRTAZAPINE TAB 15 MG TAB PO SCH (21:50)
[2017-07-03] MEDS: TRAZODONE HCL 100 MG TAB PO SCH (21:50)
[2017-07-04 03:24] VITALS: TEMP 36.6
[2017-07-04 06:00] LABS: HEMATOCRIT 38.1 % (42-52); HEMOGLOBIN 12.3 g/dL (14.0-18.0); MEAN CELL VOLUME 96.2 fL (80-100); MEAN CORPUSCULAR HEMOGLOBIN 31.1 pg (25-34); MEAN CORPUSCULAR HGB CONC 32.3 g/dl (32-36); MEAN PLATELET VOLUME 9.6 fL (7.4-10.4); PLATELET COUNT 264 K/uL (130-400); RED CELL DISTRIBUTION WIDTH CV 13.6 % (11.5-14.5); WHITE BLOOD COUNT 10.91 K/uL (4.8-10.8)
[2017-07-04 06:34] LABS: CALCIUM 8.2 mg/dl (8.5-10.1); CREATININE 0.78 mg/dl (0.60-1.40); POTASSIUM 3.6 mmol/L (3.5-5.1)
[2017-07-04 09:13] VITALS: BP 134/88; PULSE 85; O2SAT 92
[2017-07-04] MEDS: DOCUSATE SODIUM 100 MG CAP PO SCH ×2 (09:20→22:21)
[2017-07-04] MEDS: OXYCODONE HCL IR 5 MG TAB (IMMEDIATE RELEASE) PO PRN ×3 (09:20→20:03)
[2017-07-04] MEDS: ASPIRIN 81 MG ECTAB PO SCH (09:21)
[2017-07-04] MEDS: POTASSIUM CHLORIDE 20 MEQ TABCR PO SCH (09:22)
[2017-07-04] MEDS: THIAMINE HCL 100 MG TAB PO SCH (09:23)
[2017-07-04] MEDS: CYANOCOBALAMIN 500 MCG TAB (VIT B-12) PO SCH (09:23)
[2017-07-04] MEDS: CHOLECALCIFEROL 1000 INTER.UNIT TAB PO SCH (09:23)
[2017-07-04] MEDS: MULTIVITAMIN TAB PO SCH (09:24)
[2017-07-04] MEDS: MAGNESIUM OXIDE 400 MG TAB PO SCH ×2 (09:24→22:24)
[2017-07-04] MEDS: NALTREXONE HCL 50 MG TAB PO SCH (09:24)
[2017-07-04] MEDS: METOPROLOL TARTRATE 25 MG TAB PO SCH ×3 (09:25→22:23)
[2017-07-04] MEDS: PREGABALIN 75 MG CAP PO SCH ×2 (09:31→22:24)
[2017-07-04] MEDS: CHLORDIAZEPOXIDE 25 MG CAP PO SCH ×2 (09:32→22:22)
[2017-07-04] MEDS: POTASSIUM CHLORIDE INJ 10 MEQ in SODIUM CHLORIDE 0.9% 1000ML 1,000 ML IV SCH (10:00)
--- NOTE | 2017-07-04 12:38 | Orthopedic Progress Note ---
Orthopedic Progress Note Date of Service Jul 04, 2017. Subjective Post OP Day: 2 Additional Notes: Pt's d/c cancelled yesterday due to pt not doing well in PT. Today, pt does not feel well and states he is SOB(O2 sat 95%). Pt does not appear motivated to go home. Objective Date Time Temp Pulse Resp B/P (MAP) Pulse Ox O2 Delivery O2 Flow Rate FiO2 07/04/17 09:13 85 92 07/04/17 08:20 Room Air 07/04/17 03:24 36.6 07/03/17 23:39 95 Nasal Cannula 2.0 07/03/17 23:38 100 16 138/83 (101) 89 Room Air 07/03/17 23:09 38.0 07/03/17 23:05 38.4 99 16 135/84 (101) 93 Room Air 07/03/17 20:42 105 136/83 (100) 07/03/17 19:15 Room Air 07/03/17 15:29 37.5 96 16 117/78 (91) 94 Room Air 07/03/17 15:12 68 97 Laboratory Results 24 Hours: Test 07/04/17 05:10 Hematocrit 38.1 % Hemoglobin 12.3 g/dL Assessment & Plan Assessment: 51 yo male stable POD #2 s/p ORIF left trimalleolar ankle fracture Plan: 1. Pain control 2. DVT prophylaxis- ASA, SCDs 3. PT/OT- gait training 4. D/C planning- will have SS revisit with pt and consider rehab vs SNF
[2017-07-04 15:25] VITALS: BP 133/86; PULSE 83; TEMP 37; O2SAT 93
[2017-07-04 22:16] VITALS: BP 134/84; PULSE 85
[2017-07-04] MEDS: TRAZODONE HCL 100 MG TAB PO SCH (22:21)
[2017-07-04] MEDS: MIRTAZAPINE TAB 15 MG TAB PO SCH (22:25)
[2017-07-04] MEDS ORDERED: COUGH DROP (SUGAR FREE) LOZ 24 LOZ/1 BOX LOZ PRN (22:30)
[2017-07-04 23:20] VITALS: BP 126/82; PULSE 86; TEMP 37.4; O2SAT 93
[2017-07-05] MEDS ORDERED: NURSING DECISION MEDICATION ORDER SCH
[2017-07-05 07:14] VITALS: BP 144/91; PULSE 69; TEMP 37.2; O2SAT 93
--- NOTE | 2017-07-05 07:31 | Anesthesiology Progress Note ---
Anesthesia Post Op Note Date & Time Jul 05, 2017 at 07:30 Vital Signs Vital Signs Past 12 Hours Date Time Temp Pulse Resp B/P (MAP) Pulse Ox O2 Delivery O2 Flow Rate FiO2 07/05/17 07:14 37.2 69 16 144/91 (108) 93 Room Air 07/04/17 23:55 Room Air 07/04/17 23:20 37.4 86 16 126/82 (97) 93 Room Air 07/04/17 22:16 85 134/84 (101) Notes Mental Status: alert / awake / arousable, participated in evaluation Pt Amnestic to Procedure: Yes Nausea / Vomiting: adequately controlled Pain: adequately controlled Airway Patency, RR, SpO2: stable & adequate BP & HR: stable & adequate Hydration State: stable & adequate Anesthetic Complications: no major complications apparent
[2017-07-05 07:35] LABS: HEMATOCRIT 40.3 % (42-52); HEMOGLOBIN 13.4 g/dL (14.0-18.0); MEAN CELL VOLUME 94.6 fL (80-100); MEAN CORPUSCULAR HEMOGLOBIN 31.5 pg (25-34); MEAN CORPUSCULAR HGB CONC 33.3 g/dl (32-36); MEAN PLATELET VOLUME 9.6 fL (7.4-10.4); PLATELET COUNT 284 K/uL (130-400); RED CELL DISTRIBUTION WIDTH CV 13.2 % (11.5-14.5); RED CELL DISTRIBUTION WIDTH SD 45.4 fL (36.4-46.3); WHITE BLOOD COUNT 10.73 K/uL (4.8-10.8)
[2017-07-05] MEDS: POTASSIUM CHLORIDE INJ 10 MEQ in SODIUM CHLORIDE 0.9% 1000ML 1,000 ML IV SCH ×2 (08:50→18:53)
[2017-07-05] MEDS: CHLORDIAZEPOXIDE 25 MG CAP PO SCH ×2 (08:51→21:02)
[2017-07-05] MEDS: PREGABALIN 75 MG CAP PO SCH ×2 (08:51→21:02)
[2017-07-05] MEDS: ASPIRIN 81 MG ECTAB PO SCH (08:52)
[2017-07-05] MEDS: OXYCODONE HCL IR 5 MG TAB (IMMEDIATE RELEASE) PO PRN ×2 (08:52→16:33)
[2017-07-05] MEDS: METOPROLOL TARTRATE 25 MG TAB PO SCH ×3 (08:53→21:06)
[2017-07-05] MEDS: CHOLECALCIFEROL 1000 INTER.UNIT TAB PO SCH (08:53)
[2017-07-05] MEDS: CYANOCOBALAMIN 500 MCG TAB (VIT B-12) PO SCH (08:53)
[2017-07-05] MEDS: DOCUSATE SODIUM 100 MG CAP PO SCH ×2 (08:53→21:05)
[2017-07-05] MEDS: THIAMINE HCL 100 MG TAB PO SCH (08:54)
[2017-07-05] MEDS: MULTIVITAMIN TAB PO SCH (08:54)
[2017-07-05] MEDS: MAGNESIUM OXIDE 400 MG TAB PO SCH ×2 (08:55→21:04)
[2017-07-05] MEDS: NALTREXONE HCL 50 MG TAB PO SCH (08:55)
[2017-07-05] MEDS: POTASSIUM CHLORIDE 20 MEQ TABCR PO SCH (08:55)
[2017-07-05] MEDS: MoRPHine SULFATE 4 MG/ML 1 ML CARP\\VIAL IV PRN ×2 (11:11→21:55)
--- NOTE | 2017-07-05 12:32 | Orthopedic Progress Note ---
Orthopedic Progress Note Date of Service Jul 05, 2017. Subjective Post OP Day: 3 Reports: feeling well Additional Notes: Pt was having difficulty with ambulation yesterday and dc was held. Pt was given choice of going to [facility] vs SNF over the weekend which he declined. He now would like to go to a SNF until he is able to ambulate better. Discussed with case management. They are in the process of having seeing if patient can go to [facility] vs [facility]. No complaints from the patient earlier this AM. Objective N/V intact, splint C/D/I, A&O x3, toes mobile Date Time Temp Pulse Resp B/P (MAP) Pulse Ox O2 Delivery O2 Flow Rate FiO2 07/05/17 08:20 Room Air 07/05/17 07:14 37.2 69 16 144/91 (108) 93 Room Air 07/04/17 23:55 Room Air 07/04/17 23:20 37.4 86 16 126/82 (97) 93 Room Air 07/04/17 22:16 85 134/84 (101) 07/04/17 15:26 Room Air 07/04/17 15:25 37.0 83 18 133/86 (102) 93 Room Air Laboratory Results 24 Hours: Test 07/05/17 06:55 Hematocrit 40.3 % Hemoglobin 13.4 g/dL Assessment & Plan Assessment: 51 yo male stable POD #3 s/p ORIF left trimalleolar ankle fracture Plan: 1. Pain control 2. DVT prophylaxis- ASA, SCDs 3. PT/OT- gait training 4. D/C planning- Waiting on authorization from SNF Inhouse Planning Pain Management: Oxy IR DVT Prophylaxis: SCDs, ASA Discharge Planning Discharge Planning: uncertain
[2017-07-05 13:33] VITALS: BP 133/87; PULSE 87
[2017-07-05 15:36] VITALS: BP 129/81; PULSE 73; TEMP 36.8; O2SAT 94
[2017-07-05 21:01] VITALS: BP 122/81; PULSE 82
[2017-07-05] MEDS: TRAZODONE HCL 100 MG TAB PO SCH (21:08)
[2017-07-05] MEDS: MIRTAZAPINE TAB 15 MG TAB PO SCH (21:08)
[2017-07-05 23:44] VITALS: BP 116/77; PULSE 80; TEMP 37; O2SAT 93
[2017-07-06] MEDS: POTASSIUM CHLORIDE INJ 10 MEQ in SODIUM CHLORIDE 0.9% 1000ML 1,000 ML IV SCH ×2 (03:43→13:47)
[2017-07-06 07:25] LABS: HEMATOCRIT 39.4 % (42-52); MEAN CELL VOLUME 94.3 fL (80-100); MEAN CORPUSCULAR HEMOGLOBIN 31.1 pg (25-34); MEAN PLATELET VOLUME 9.7 fL (7.4-10.4); PLATELET COUNT 284 K/uL (130-400); RED CELL DISTRIBUTION WIDTH CV 13.3 % (11.5-14.5); RED CELL DISTRIBUTION WIDTH SD 45.7 fL (36.4-46.3); WHITE BLOOD COUNT 9.67 K/uL (4.8-10.8)
[2017-07-06 07:35] VITALS: BP 120/80; PULSE 74; TEMP 36.6; O2SAT 93
[2017-07-06] MEDS: CHLORDIAZEPOXIDE 25 MG CAP PO SCH (09:32)
[2017-07-06] MEDS: PREGABALIN 75 MG CAP PO SCH (09:32)
[2017-07-06] MEDS: OXYCODONE HCL IR 5 MG TAB (IMMEDIATE RELEASE) PO PRN ×2 (09:33→13:46)
[2017-07-06] MEDS: POTASSIUM CHLORIDE 20 MEQ TABCR PO SCH (09:34)
[2017-07-06] MEDS: MAGNESIUM OXIDE 400 MG TAB PO SCH (09:34)
[2017-07-06] MEDS: DOCUSATE SODIUM 100 MG CAP PO SCH (09:34)
[2017-07-06] MEDS: NALTREXONE HCL 50 MG TAB PO SCH (09:34)
[2017-07-06] MEDS: METOPROLOL TARTRATE 25 MG TAB PO SCH ×2 (09:35→13:44)
[2017-07-06] MEDS: MULTIVITAMIN TAB PO SCH (09:35)
[2017-07-06] MEDS: CHOLECALCIFEROL 1000 INTER.UNIT TAB PO SCH (09:36)
[2017-07-06] MEDS: THIAMINE HCL 100 MG TAB PO SCH (09:36)
[2017-07-06] MEDS: ASPIRIN 81 MG ECTAB PO SCH (09:36)
[2017-07-06] MEDS: CYANOCOBALAMIN 500 MCG TAB (VIT B-12) PO SCH (09:36)
[2017-07-06 13:40] VITALS: BP 119/79; PULSE 87
[2017-07-06] MEDS ORDERED: HYDROCORTISONE 1% OINT 30 GM TUBE EXT PRN (14:30)
--- NOTE | 2017-07-06 15:09 | Discharge Instructions ---
Discharge Instructions Date of Service Jul 06, 2017. Admission Reason for Admission: Left Trimalleolar Fracture Discharge Discharge Diagnosis / Problem: SP ORIF LEFT ANKLE Discharge Goals Goal(s): Decrease discomfort, Improve function, Increase independence Activity Recommendations Activity Level: Assistance Required Therapies: Physical Therapy, Weight Bearing Status (NWB LLE), Occupational Therapy Weightbearing Status: Left non-weightbearing ACTIVITY RECOMMENDATIONS: * MAINTAIN NON WEIGHT BEARING STATUS UNTIL OTHERWISE DIRECTED. SPECIAL CARE INSTRUCTIONS: * Some drainage onto the dressing is normal and is no cause for alarm. * Some swelling is natural especially after walking. When resting, keep your foot elevated above the level of your heart. * Call the doctor's office at if you notice increased drainage, fever over 101 degrees F. or severe constant pain. BANDAGE: * Leave bandage/cast in place unless otherwise directed. * Keep bandage/cast dry at all times. PIN CARE: * Leave pins alone. * If pins come loose or fall out, notify physician. FOLLOW UP VISIT: If appointment is not already scheduled: Please call [facility] [place] to make a follow-up appointment 10-14 DAYS after your surgery at . . Additional Information Patient informed of condition: Yes Advance Directives: Yes DNR: No Level of Care: Acute Rehab Communicable Disease: No Prognosis: Stable Current Hospital Diet Patient's current hospital diet: Regular Diet Discharge Diet Recommended Diet: Regular Diet Procedures Procedures Performed: 1. Left Open Reduction Internal Fixation Trimalleolar Ankle Fracture 2. ORIF Syndesmosis with 3.5mm screw Pending Studies Studies pending at discharge: no Laboratory Results Hemoglobin A1c Test 07/02/17 15:37 Range/Units Estimated Average Glucose 74 mg/dl Hemoglobin A1c 4.2 L 4.5-5.6 % Medical Emergencies . Who to Call and When: Medical Emergencies: If at any time you feel your situation is an emergency, please call 911 immediately. . Non-Emergent Contact Non-Emergency issues call your: Surgeon . . "Provider Documentation" section prepared by Heather Kirby. . Core Measure Problem Core Measures: None
[2017-07-06 16:50] VITALS: BP 119/79; PULSE 87; TEMP 36.6; O2SAT 93
== END 2017-07-06 17:15 ==
LOC: C.ACU 13:16 → C.3E 20:19 → ENRESERV 20:59
PROVIDERS: ADMIT Orthopaedic Surgery Sports Medicine; ATTEND Orthopaedic Surgery Sports Medicine
DX: S82.852A Displaced trimalleolar fracture of left lower leg, initial encounter for closed fracture (principal); S82.52XA Displaced fracture of medial malleolus of left tibia, initial encounter for closed fracture; F10.21 Alcohol dependence, in remission; K21.9 Gastro-esophageal reflux disease without esophagitis; E66.9 Obesity, unspecified; X58.XXXA Exposure to other specified factors, initial encounter; Z86.711 Personal history of pulmonary embolism; F41.9 Anxiety disorder, unspecified; G47.33 Obstructive sleep apnea (adult) (pediatric); R56.9 Unspecified convulsions

== ENCOUNTER → 2017-07-10 | Outpatient (CLI) | payer OTHER ==
[~2017-07-10] MED LIST changes: +ACET-24 PO; +ASPEC325 PO; -ATV/1 PO; -CEFAZOLIN 2000MG IV PUSH 10 ML IV SCH; -OXYC1TAB3 PO; +RXC5 PO
== END ==
LOC: C.LABUPNIT 12:13
PROVIDERS: ATTEND Nurse Practitioner Family
DX: Z13.9 Encounter for screening, unspecified (principal)

== ENCOUNTER → 2017-07-20 | Outpatient (CLI) | payer OTHER ==
[2017-07-20 16:17] LABS: INFLUENZA B ANTIGEN Neg for Influ B (NEG)
== END | disposition home or self-care (01) ==
LOC: C.LABUPNIT 15:17
PROVIDERS: ATTEND Nurse Practitioner Family
DX: L08.9 Local infection of the skin and subcutaneous tissue, unspecified (principal)

== ENCOUNTER → 2017-07-27 | Outpatient (CLI) | payer OTHER ==
[2017-07-27 08:30] LABS: HEMATOCRIT 43.1 % (42-52); HEMOGLOBIN 14.5 g/dL (14.0-18.0); MEAN CELL VOLUME 90.5 fL (80-100); MEAN CORPUSCULAR HEMOGLOBIN 30.5 pg (25-34); MEAN CORPUSCULAR HGB CONC 33.6 g/dl (32-36); MEAN PLATELET VOLUME 10.1 fL (7.4-10.4); PLATELET COUNT 254 K/uL (130-400); RED CELL DISTRIBUTION WIDTH CV 13.1 % (11.5-14.5); RED CELL DISTRIBUTION WIDTH SD 43.1 fL (36.4-46.3); WHITE BLOOD COUNT 10.53 K/uL (4.8-10.8)
== END ==
LOC: C.LABUPNIT 08:04
PROVIDERS: ATTEND Nurse Practitioner Family
DX: M10.9 Gout, unspecified (principal)

== ENCOUNTER → 2017-08-03 | Outpatient (CLI) | payer OTHER | LOC: C.LABUPNIT 09:09 | PROVIDERS: ATTEND Nurse Practitioner Family | DX: M10.9 Gout, unspecified (principal) ==

== ENCOUNTER 2019-01-26 16:29 | Inpatient (IN) ==
--- OUTSIDE RECORDS SUMMARY | 2019-01-26 16:32 | External Medical Summary | Continuity of Care Document ---
:1965 Author Name Luzmaria Soto Address Unavailable Unavailable , Care Team Providers Name Role Phone Unavailable Unavailable Unavailable [email or web address] Devendra GREGORY Unavailable [email or web address] PCP, UNKNOWN Unavailable Unavailable Unavailable Unavailable Unavailable Problems Gout (274.9) (M10.9) Provoked seizures (780.39) (R56.9) Depression (311) (F32.9) Hypomagnesemia (275.2) (E83.42) Spinal compression fracture (805.8) (M48.50XA) Alcoholism (303.90) (F10.20) Elevated blood pressure (R03.0) Diarrhea (787.91) (R19.7) Low bone density for age (733.99) (M85.80) Hospital discharge follow-up (V67.59) (Z09) Back pain (724.5) (M54.9) Allergies and Adverse Reactions No Known Drug Allergies (Allergy) Medications Mirtazapine 15 MG Oral Tablet; TAKE 1 TABLET AT BEDTIME. BRI Murray Quantity: 30 Refills: 3 traZODone HCl - 50 MG Oral Tablet; TAKE 1 TABLET BY [facility] DAILY AT BEDTIME BRI Ramsay Start: 08-Jan-2017 Quantity: 30 Refills: 1 Multivitamins Oral Capsule; TAKE 1 CAPSULE Charles RAMÍREZ Start: 26-Aug-2015 Refills: 0 Metoprolol Tartrate 25 MG Oral Tablet; TAKE 1 TABLET TWICE D Charles ALDRICH Quantity: 60 Refills: 5 Protonix 40 MG Oral Tablet Delayed Release; TAKE 1 TABLET DA Charles CANDELARIO Quantity: 30 Refills: 0 RA Central-Yohan Oral Tablet; take 1 tablet by mouth on ce daily DO Mariano Leonard Start: 17-Aug-2016 Quantity: 90 Refills: 2 Magnesium Oxide 400 MG Oral Tablet; TAKE 1 TABLET TWIC E DAILY. BRI Ramsay Start: 11-Apr-2015 Quantity: 60 Refills: 3 Folic Acid 1 MG Oral Tablet; Take 1 tablet daily LUZ MARIA Ramsay Start: 21-Aug-2015 Quantity: 30 Refills: 5 B Complex Vitamins Oral Capsule; Take 1 tablet daily Ольга Leonard Start: 02-Apr-2016 Quantity: 90 Refills: 1 RA Vitamin D-3 2000 UNIT Oral Capsule; take 1 capsule by mouth once daily BRI Ruiz Start: 20-Sep-2016 Quantity: 70 Refills: 3 RA Vitamin B-1 100 MG Oral Tablet; take 1 tablet by [facility] twice a day BRI Ramsay Start: 02-Dec-2016 Quantity: 60 Refills: 5 Nasacort Allergy 24HR 55 MCG/ACT Nasal Aerosol; INSTIL L 2 SQUIRT Daily DO Mariano Leonard Start: 20-Mar-2015 Quantity: 16.9 Refills: 1 Vitamin D3 2000 UNIT Oral Tablet; Take 1 tablet daily DO Mariano Leonard Start: 09-Sep-2015 Quantity: 1 100 Tablet Bottle Refills: 0 Procedures History of Shoulder Surgery Status: Comp leted Immunizations Immunizations not documented Family History Grandmother Family history of non-Hodgkin's lymphoma (V16.7) (Z80.7) Sta tus: Active Social History - Smoking Status Never smoker Plan of Treatment Planned Observations Planned Goals not documented Results No Known Results Results not documented
[2019-01-26] MEDS ORDERED: chlordiazePOXIDE HCl 25 MG CAP PO ONE (16:43)
[2019-01-26] MEDS ORDERED: MULTI-VITAMIN INFUSION 10 ML, THIAMINE HCL 100 MG, FOLIC ACID 1 MG in SODIUM CHLORIDE 0... IV SCH (16:45)
[2019-01-26 16:53] LABS: Hematocrit (blood only) 49.1 % (42-52); Hemoglobin 16.7 g/dL (14.0-18.0); Mean Platelet Volume 10.2 fL (7.4-10.4); Platelet Count 156 K/uL (130-400); RDW Coefficient of Variation 13.6 % (11.5-14.5); RDW Standard Deviation 46.8 fL (36.4-46.3); Red Blood Count 5.17 M/uL (4.7-6.1); White Blood Count 11.97 K/uL (4.8-10.8)
[2019-01-26 17:10] LABS: Albumin Level 4.3 gm/dl (3.4-5.0); Creatinine Clr Calc Pharmacy 48.9 ml/min; Est GFR (African American) 54.1; Est GFR (Non-African American) 46.7; Magnesium 1.9 mg/dl (1.8-2.4)
[2019-01-26 17:13] LABS: Albumin Globulin Ratio 0.9 (0.9-2); Total Protein 9.3 gm/dl (6.4-8.2)
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
[2019-01-26 17:19] LABS: Basophils # (auto) 0.02 K/uL (0-0.2); Basophils % (auto) 0.2 %; Eosinophils # (auto) 0.02 K/uL (0-0.5); Eosinophils % (auto) 0.2 %; Immature Granulocytes # (auto) 0.06 K/uL (0.00-0.02); Immature Granulocytes % (auto) 0.5 %; Lymphocytes # (auto) 3.68 K/uL (1.2-3.4); Lymphocytes % (auto) 30.7 %; Monocytes # (auto) 2.13 K/uL (0.11-0.59); Monocytes % (auto) 17.8 %; Neutrophils # (auto) 6.06 K/uL (1.4-6.5); Neutrophils % (auto) 50.6 %; RBC Morphology Unremarkable
--- NOTE | 2019-01-26 17:20 | CT Scan Report ---
CT head/brain wo con CLINICAL HISTORY: Headache, seizure. COMPARISON STUDY: 07/06/2016 TECHNIQUE: Axial CT of the brain is performed from the vertex to the skull base. IV contrast was not administered for this examination. A dose lowering technique was utilized adhering to the principles of ALARA. CT DOSE: 614.27 mGy.cm FINDINGS: No intra or extra-axial mass lesions are visualized. There is no CT evidence of acute cortical infarc tion. There is no evidence of midline shift. There is no acute hemorrhage. No calvarial fractures ar e visualized. There is mild ventricular dilatation, unchanged from the preceding study. There is opacification of the left mastoid. This may represent acute sinusitis as this was not presen t on the prior study. IMPRESSION: 1. No acute intracranial findings 2. Stable mild ventricular prominence for age 3. Interval development of near complete opacification of the left maxillary sinus Electronically signed by: Alfred Cardenas M.D. 01/26/2019 5:18 PM
[2019-01-26] MEDS ORDERED: POTASSIUM CHLORIDE / WTR 10 MEQ/100 ML PLCT IV ONE (18:11)
[2019-01-26] MEDS ORDERED: LORazepam 1 MG/2 ML VIAL IV STA (18:16)
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
[2019-01-26] MEDS ORDERED: MULTI-VITAMIN INFUSION 10 ML, THIAMINE HCL 100 MG, FOLIC ACID 1 MG in SODIUM CHLORIDE 0... IV ONE (20:12)
[2019-01-26] MEDS ORDERED: LORazepam 1 MG TAB PO PRN (20:12)
[2019-01-26] MEDS ORDERED: LORazepam 1 MG/2 ML VIAL IV PRN (20:12)
[2019-01-26] MEDS ORDERED: ATIVAN IV ALCOHOL WITHDRAWL IV SCH (20:12)
[2019-01-26] MEDS ORDERED: GABAPENTIN 1200MG ALCOHOL WITHDRAWAL LOAD PO STA (20:12)
[2019-01-26] MEDS ORDERED: LORazepam 3 MG/6 ML VIAL IV PRN (20:12)
[2019-01-26 20:16] LABS: INR 1.1 (0.9-1.1); Prothrombin Time 11.5 Seconds (9.0-12.0)
[2019-01-26 20:25] LABS: Creatinine Clr Calc Pharmacy 108.3 ml/min; Est GFR (African American) 122.2; Est GFR (Non-African American) 105.5
[2019-01-26] MEDS ORDERED: GABAPENTIN 600 MG TAB PO SCH (20:30)
[2019-01-26] MEDS ORDERED: FOMEPIZOLE IV SCH (20:45)
[2019-01-26] MEDS ORDERED: DEXTROSE 5% IV SCH (20:45)
[2019-01-26] MEDS: TRAZODONE HCL 50 MG TAB PO SCH (21:02)
[2019-01-26 21:32] LABS: Amphetamines+Metham, Urine Neg (Neg); Barbiturates, Urine Neg (Neg); Benzodiazepine, Urine Neg (Neg); Cocaine, Urine Neg (Neg); MDMA (Ecstacy), Urine Neg (Neg); Methadone, Urine Neg (Neg); Opiate, Urine Neg (Neg); Phencyclidine, Urine Neg (Neg)
[2019-01-26] MEDS: MAGNESIUM SULFATE / D5W 1 GM/100 ML BAG IV SCH ×2 (21:59→22:55)
[2019-01-26] MEDS: POTASSIUM CHLORIDE 20 MEQ TABCR PO SCH (23:23)
[2019-01-27] MEDS: GABAPENTIN 600 MG TAB PO SCH ×3 (05:57→21:48)
[2019-01-27 07:01] LABS: BUN Creatinine Ratio 14.1 (10-20); Calcium 7.9 mg/dl (8.5-10.1); Creatinine Clr Calc Pharmacy 107.7 ml/min; Est GFR (African American) 121.6; Est GFR (Non-African American) 104.9; Potassium 3.1 mmol/L (3.5-5.1)
[2019-01-27 07:08] LABS: Albumin Globulin Ratio 0.8 (0.9-2); Bilirubin,Total 3.1 mg/dl (0.2-1); Globulin 3.6 gm/dl (2.5-4.0); Total Protein 6.6 gm/dl (6.4-8.2)
[2019-01-27] MEDS: POTASSIUM CHLORIDE 20 MEQ TABCR PO SCH ×3 (08:08→21:49)
[2019-01-27] MEDS: HEPARIN SOD 5,000 UNIT/0.5 ML VIAL SQ SCH ×3 (09:04→21:48)
[2019-01-27] MEDS: D5NSS + 20MEQ KCL 20 MEQ/1,000 ML BAG IV SCH (17:06)
--- NOTE | 2019-01-27 20:57 | Hospitalist Progress Note ---
Date of Service January 27, 2019 Assessment & Plan (1) Alcohol withdrawal: stable. no symptoms/signs of DTs. cont gabapentin protocol. cont ativan IV/PO prn. fluids. thiamine, folic acid, MVI. will need PT/OT. (2) High anion gap metabolic acidosis: at time of ER presentation. resolved. did receive fomepizole x 1 dose due to high osmolar gap which suggests he ingested rubbing alcohol or some other form of alcohol beyond beer/wine. he consistently denies such. we deferred on additional doses of fomepizole due to the rapid resolution of the anion gap acidosis and rapid normalization of his serum osm (and thus the osmolar gap). BMP today acceptable. (3) Hypokalemia: replace IV/PO BMP am (4) Alcohol withdrawal seizure: just prior to ER presentation. no recurrent seizures while hospitalized. seizure precautions. (5) Alcoholism: long-standing history. prior imaging of abdomen suggested possible early cirrhosis. social work should be consulted prior to discharge to see if he is interested in inpatient rehab. cont to Rx his withdrawal. (6) Abnormal LFTs: at baseline appears to have mild elevations in LFTs. they are worse this admission. this suggests some component of acute alcoholic hepatitis. prior imaging with possible early cirrhosis. repeat LFTs in am. consider abdominal u/s prior to discharge to r/o definitive cirrhosis. (7) Acute kidney injury: resolved cont IVF repeat BMP am (8) DVT prophylaxis: heparin SC cont to treat etoh withdrawal per protocol PT, OT evals Subjective tele w/ sinus tach feels ok today mild tremors appetite fair minimal discomfort over knees, right elbow from his withdrawal seizure he reports he is committed to sobriety Review of Systems Constitutional: no fever Respiratory: no dyspnea Cardiovascular: no chest pain Gastrointestinal: no abdominal pain Physical Exam Constitutional: no acute distress and no altered mental status ENMT: external ear and nose normal, oropharynx normal Respiratory: normal respiratory effort, lungs clear to auscultation Cardiovascular: Rate/Rhythm: regular rhythm and + tachycardic Heart Sounds: normal S1 and normal S2; no murmur Vessels: posterior tibial pulses present and dorsalis pedis pulses present; no JVD Extremities: no edema Gastrointestinal (Abdomen): normal bowel sounds, soft, nontender, no hepatosplenomegaly Musculoskeletal: b/l knees w/o any effusion, signs of trauma or tenderness to palpation Skin: abrasions right elbow region Neurologic: Motor/Sensory: + tremor (minimal) Psychiatric: A+Ox3, euthymic affect Results & Data Vital Signs (Past 12 Hours) Vital Signs Temp Pulse Resp BP Pulse Ox 01/27/19 19:02 37.0 C 98 H 18 135/83 96 01/27/19 15:31 36.8 C 99 H 20 124/79 96 01/27/19 11:22 36.6 C 89 18 123/80 95 Laboratory Results Laboratory Results - last 24 hr 01/26/19 01/26/19 01/27/19 20:57 21:05 05:48 Sodium 141 Potassium 3.1 L Chloride 110 H Carbon Dioxide 22 Anion Gap 9.0 BUN 11 Creatinine 0.76 Est Cr Clr Drug Dosing 107.7 Est GFR ( Amer) 121.6 Est GFR (Non-Af Amer) 104.9 BUN/Creatinine Ratio 14.1 Glucose 88 Osmolality 286 Calcium 7.9 L Total Bilirubin 3.1 H AST 65 H ALT 46 Alkaline Phosphatase 59 Total Protein 6.6 D Albumin 3.0 L Globulin 3.6 Albumin/Globulin Ratio 0.8 L Urine Opiates Screen Neg Ur Methadone, Qual Neg Urine Barbiturates Neg Ur Phencyclidine (PCP) Neg U Amphetamin/Meth Scrn Neg MDMA (Ecstasy) Screen Neg U Benzodiazepines Scrn Neg Ur Cocaine Metabolite Neg U Marijuana (THC) Screen Neg PG Care Time/CCT Total # of Minutes Spent Total Time Spent with Patient: Total time spent is greater than 50% in coordination of care (as documented) at patient's floor/unit and/or counseling patient: (1) Alcohol withdrawal Complication of substance-induced condition: uncomplicated Qualified Code(s): F10.230 - Alcohol dependence with withdrawal, uncomplicated (2) Alcohol withdrawal seizure Complication of substance-induced condition: uncomplicated Qualified Code(s): F10.230 - Alcohol dependence with withdrawal, uncomplicated
[2019-01-27] MEDS: TRAZODONE HCL 50 MG TAB PO SCH (21:49)
[2019-01-27] MEDS: THIAMINE HCL 200 MG in SODIUM CHLORIDE 0.9% 50 ML IV SCH (22:12)
[2019-01-28] MEDS: LORazepam 2 MG/4 ML VIAL IV PRN ×2 (00:32→20:24)
[2019-01-28] MEDS: D5NSS + 20MEQ KCL 20 MEQ/1,000 ML BAG IV SCH ×2 (06:04→21:17)
[2019-01-28] MEDS: GABAPENTIN 600 MG TAB PO SCH ×2 (06:06→15:04)
[2019-01-28] MEDS: HEPARIN SOD 5,000 UNIT/0.5 ML VIAL SQ SCH ×3 (06:07→22:25)
[2019-01-28 07:11] LABS: Hematocrit (blood only) 38.5 % (42-52); Hemoglobin 12.8 g/dL (14.0-18.0); Mean Corpuscular Hgb Conc 33.2 g/dL (32-36); Mean Corpuscular Volume 93.9 fL (80-100); Mean Platelet Volume 9.6 fL (7.4-10.4); Platelet Count 88 K/uL (130-400); RDW Coefficient of Variation 13.3 % (11.5-14.5); RDW Standard Deviation 45.7 fL (36.4-46.3); White Blood Count 4.63 K/uL (4.8-10.8)
[2019-01-28 07:16] LABS: Platelet Estimate Decreased (Normal)
[2019-01-28 07:17] LABS: BUN Creatinine Ratio 9.7 (10-20); Calcium 8.2 mg/dl (8.5-10.1); Creatinine Clr Calc Pharmacy 112.9 ml/min; Est GFR (African American) 124.3; Est GFR (Non-African American) 107.3; Potassium 3.3 mmol/L (3.5-5.1)
[2019-01-28 07:21] LABS: Albumin Globulin Ratio 0.8 (0.9-2); Bilirubin,Total 1.6 mg/dl (0.2-1); Globulin 3.7 gm/dl (2.5-4.0); Total Protein 6.7 gm/dl (6.4-8.2)
[2019-01-28] MEDS: CEROVITE ADV FORMULA TAB PO SCH (08:28)
[2019-01-28] MEDS: FOLIC ACID 1 MG in SYRINGE 9.8 ML IV SCH (08:28)
[2019-01-28] MEDS: THIAMINE HCL 200 MG in SODIUM CHLORIDE 0.9% 50 ML IV SCH ×2 (08:35→20:15)
--- NOTE | 2019-01-28 14:16 | Hospitalist Progress Note ---
Date of Service January 28, 2019 Assessment & Plan (1) Alcohol withdrawal: Stable. No symptoms/signs of DTs or further seizure. - Cont gabapentin protocol. - Cont ativan IV/PO prn. - IV fluids - Thiamine, folic acid, MVI. (2) Alcohol withdrawal seizure: Just prior to ER presentation. No recurrent seizures while hospitalized. Never had any prior seizure. He reports that he was tapering his alcohol consumption on his own over 4-5 days which makes this entirely from alcohol withdrawal slightly less likely. - Seizure precautions (3) Thrombocytopenia: Platelets have ranged widely with admission. As high as 360 in the past. Plt were 150 on admission, now 90. Likely due to liver injury from alcohol vs. cirrhosis. - No signs of bleeding - Monitor (4) High anion gap metabolic acidosis: At time of ER presentation. - He did receive fomepizole x 1 dose due to high osmolar gap which suggests he ingested rubbing alcohol or some other form of alcohol beyond beer/wine. He consistently denies such. - Resolved. (5) Alcoholism: Long-standing history. Prior imaging of abdomen suggested possible early cirrhosis. - Encourage cessation (6) Abnormal LFTs: At baseline appears to have mild elevations in LFTs. They are worse this admission. This suggests some component of acute alcoholic hepatitis. - By 01/28, LFTs down to 50/40. (7) DVT prophylaxis: Heparin SC Subjective Still feels slightly tremulous and anxious. Review of Systems Review of Systems: All systems reviewed & are unremarkable except as noted in HPI & below Physical Exam Constitutional: WD/WN, vitals as above Eyes: EOM intact bilaterally; no conjunctival abnormality ENMT: external ear and nose normal, oropharynx normal Neck: trachea midline, no thyromegaly normal visual inspection Respiratory: normal respiratory effort, lungs clear to auscultation no respiratory distress Cardiovascular: RRR, no murmur, no edema Gastrointestinal (Abdomen): Inspection/Auscultation: abdomen normal to inspection; abdomen not distended Musculoskeletal: no cyanosis or clubbing, extremities motor strength 5/5 Skin: no rashes, warm and dry Neurologic: moves all extremities and awake Psychiatric: Orientation: alert, oriented to person and cooperative Results & Data Vital Signs (Past 12 Hours) Vital Signs Temp Pulse Pulse Resp BP Pulse Ox 01/28/19 11:28 36.5 C 91 H 20 130/86 96 01/28/19 08:03 36.6 C 88 17 130/90 95 01/28/19 08:00 81 01/28/19 03:52 37.0 C 79 16 134/85 95 PG Care Time/CCT Total # of Minutes Spent Total Time Spent with Patient: Total time spent is greater than 50% in coordination of care (as documented) at patient's floor/unit and/or counseling patient: (1) Alcohol withdrawal Complication of substance-induced condition: uncomplicated Qualified Code(s): F10.230 - Alcohol dependence with withdrawal, uncomplicated (2) Alcohol withdrawal seizure Complication of substance-induced condition: uncomplicated Qualified Code(s): F10.230 - Alcohol dependence with withdrawal, uncomplicated
[2019-01-28] MEDS: TRAZODONE HCL 50 MG TAB PO SCH (20:13)
[2019-01-29] MEDS: GABAPENTIN 600 MG TAB PO SCH ×3 (00:21→13:50)
[2019-01-29 06:11] LABS: Hematocrit (blood only) 38.9 % (42-52); Hemoglobin 13.2 g/dL (14.0-18.0); Mean Corpuscular Hgb Conc 33.9 g/dL (32-36); Mean Corpuscular Volume 93.5 fL (80-100); Mean Platelet Volume 9.2 fL (7.4-10.4); Platelet Count 114 K/uL (130-400); RDW Coefficient of Variation 13.3 % (11.5-14.5); RDW Standard Deviation 45.4 fL (36.4-46.3); Red Blood Count 4.16 M/uL (4.7-6.1); White Blood Count 6.85 K/uL (4.8-10.8)
[2019-01-29] MEDS: HEPARIN SOD 5,000 UNIT/0.5 ML VIAL SQ SCH ×3 (06:37→21:26)
[2019-01-29 06:41] LABS: BUN Creatinine Ratio 10.1 (10-20); Calcium 8.4 mg/dl (8.5-10.1); Creatinine Clr Calc Pharmacy 110.1 ml/min; Est GFR (African American) 122.9; Est GFR (Non-African American) 106.1; Magnesium 1.7 mg/dl (1.8-2.4); Potassium 3.4 mmol/L (3.5-5.1)
[2019-01-29 06:46] LABS: Albumin Globulin Ratio 0.8 (0.9-2); Bilirubin,Total 0.8 mg/dl (0.2-1)
[2019-01-29] MEDS: FOLIC ACID 1 MG in SYRINGE 9.8 ML IV SCH (09:32)
[2019-01-29] MEDS: CEROVITE ADV FORMULA TAB PO SCH (09:33)
[2019-01-29] MEDS: D5NSS + 20MEQ KCL 20 MEQ/1,000 ML BAG IV SCH (09:35)
[2019-01-29] MEDS: POTASSIUM CHLORIDE 20 MEQ TABCR PO SCH ×2 (09:41→21:25)
[2019-01-29] MEDS: THIAMINE HCL 200 MG in SODIUM CHLORIDE 0.9% 50 ML IV SCH (09:42)
[2019-01-29] MEDS: MAGNESIUM SULFATE / D5W 1 GM/100 ML BAG IV SCH ×2 (09:42→10:49)
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
[2019-01-29] MEDS: LORazepam 0.5 MG TAB PO PRN ×3 (13:42→21:25)
[2019-01-29] MEDS: ACETAMINOPHEN 325 MG TAB PO PRN (16:03)
[2019-01-29] MEDS ORDERED: LORazepam 0.5 MG TAB PO STA (16:15)
[2019-01-30] MEDS: TRAZODONE HCL 50 MG TAB PO SCH (00:06)
[2019-01-30] MEDS: LORazepam 0.5 MG TAB PO PRN (05:35)
[2019-01-30] MEDS: HEPARIN SOD 5,000 UNIT/0.5 ML VIAL SQ SCH (05:38)
[2019-01-30] MEDS ORDERED: THIAMINE HCL 100 MG/ML 2 ML VIAL IM SCH (09:00)
[2019-01-30] MEDS ORDERED: FOLIC ACID 1 MG TAB PO SCH (09:00)
[2019-01-30] MEDS: ACETAMINOPHEN 325 MG TAB PO PRN (09:07)
[2019-01-30] MEDS: POTASSIUM CHLORIDE 20 MEQ TABCR PO SCH (09:08)
[2019-01-30] MEDS: CEROVITE ADV FORMULA TAB PO SCH (09:08)
[2019-01-30] MEDS ORDERED: GABAPENTIN 600 MG TAB PO SCH (12:30)
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
== END 2019-01-30 13:14 | disposition home or self-care (01) | DRG 897 ==
LOC: ED 16:29 → SUATTDRO 19:25 → 2S 19:25 → 4W 01-29 12:46

== ENCOUNTER 2019-03-13 12:53 | Inpatient (IN) ==
[2019-03-13 14:10] LABS: Hematocrit (blood only) 41.6 % (42-52); Hemoglobin 14.4 g/dL (14.0-18.0); Mean Corpuscular Hemoglobin 30.3 pg (25-34); Mean Corpuscular Hgb Conc 34.6 g/dL (32-36); Mean Corpuscular Volume 87.6 fL (80-100); RDW Coefficient of Variation 13.4 % (11.5-14.5); RDW Standard Deviation 42.7 fL (36.4-46.3); Red Blood Count 4.75 M/uL (4.7-6.1); White Blood Count 4.85 K/uL (4.8-10.8)
[2019-03-13 14:19] LABS: Alanine Aminotransferase 107 U/L (12-78); Albumin Level 4.3 gm/dl (3.4-5.0); Aspartate Aminotransferase 118 U/L (15-37); BUN Creatinine Ratio 13.2 (10-20); Blood Urea Nitrogen 10 mg/dl (7-18); Carbon Dioxide 22 mmol/L (21-32); Chloride 100 mmol/L (98-107); Est GFR (African American) 123.6; Est GFR (Non-African American) 106.6; Glucose 170 mg/dl (70-99); Potassium 2.8 mmol/L (3.5-5.1); Sodium 138 mmol/L (136-145)
[2019-03-13 14:22] LABS: Albumin Globulin Ratio 1.1 (0.9-2); Alkaline Phosphatase 73 U/L (45-117); Bilirubin,Total 1.4 mg/dl (0.2-1); Globulin 3.9 gm/dl (2.5-4.0); Total Protein 8.2 gm/dl (6.4-8.2)
[2019-03-13] MEDS ORDERED: MULTI-VITAMIN INFUSION 10 ML, THIAMINE HCL 100 MG, FOLIC ACID 1 MG in SODIUM CHLORIDE 0... IV ONE ×2 (14:28→20:20)
[2019-03-13] MEDS ORDERED: LORazepam 1 ML IM STA (14:28)
[2019-03-13] MEDS ORDERED: LORazepam 2 MG/4 ML VIAL IV STA (14:34)
[2019-03-13 14:37] LABS: Mean Platelet Volume 10.5 fL (7.4-10.4); Platelet Count 74 K/uL (130-400)
[2019-03-13 14:38] LABS: Basophils # (auto) 0.01 K/uL (0-0.2); Basophils % (auto) 0.2 %; Immature Granulocytes # (auto) 0.02 K/uL (0.00-0.02); Immature Granulocytes % (auto) 0.4 %; Lymphocytes % (auto) 20.6 %; Monocytes # (auto) 0.55 K/uL (0.11-0.59); Monocytes % (auto) 11.3 %; Neutrophils # (auto) 3.27 K/uL (1.4-6.5); Neutrophils % (auto) 67.5 %; Platelet Estimate Decreased (Normal)
[2019-03-13] MEDS ORDERED: DiphenhydrAMINE HCL 50 MG/ML VIAL IV STA (15:48)
[2019-03-13] MEDS ORDERED: LORazepam 1 MG/2 ML VIAL IV STA (15:48)
[2019-03-13] MEDS ORDERED: POTASSIUM CHLORIDE / WTR 10 MEQ/100 ML PLCT IV ONE (15:48)
--- NOTE | 2019-03-13 17:43 | Emergency Department Note ---
Entered by Damion Johnson acting as a scribe for History of Present Illness General Chief complaint: Alcohol Withdrawal Stated complaint: SEIZURE, HX OF SAME Time Seen by Provider: 03/13/19 14:02 Source: patient Limitations: no limitations History of Present Illness Provider complaint: Alcohol withdraw Onset (ago): week(s) 2 Radiation: non-radiation Severity: moderate Pain Consistency: + intermittent Maximum Pain Intensity: 8 Relieved By: + none Exacerbated By: + other (alcohol withdraw) Associated symptoms: + nausea/vomiting; no fever/chills Treatments prior to arrival: none The patient is 53 a year old male who presents to the Emergency Department with complaints alcohol withdraw after he began drinking again two weeks ago. The patient states he drinks a third of fifth every night. He has been shaking and vomiting violently over the past couple days. His last alcoholic drink was last night. The patient denies having any fever or any recent drug use. He has been drinking fluids and eating food regularly. He was admitted in January for detox after having a withdrawal seizure. He did not go to rehab afterwards and try to attend AA meetings. He has been having difficulties lately due to loss of his job and so started drinking again. He denies any injury or trauma. Home Medications Home Medications Medication Instructions Recorded Confirmed Type trazodone 50 mg PO HS 01/26/19 03/13/19 History multivitamin-iron (hematinic) 1 tab PO DAILY 03/11/19 03/13/19 History tablet thiamine HCl (vitamin B1) 100 mg 100 mg PO BID #60 tab 03/11/19 03/13/19 History tablet triamcinolone acetonide 55 mcg 2 sprays INTRANASAL DAILY PRN 03/11/19 03/13/19 History nasal spray aerosol #16.9 ml vitamin B complex tablet 1 tab PO DAILY 03/11/19 03/13/19 History Allergies Allergy/AdvReac Type Severity Reaction Status Date / Time No Known Allergies Allergy Verified 03/13/19 13:33 Past Med/Surg History Medical History Prolonged QT interval (Acute) Compression fracture of body of thoracic vertebra (Resolved) Pulmonary embolism (Resolved) 2011 Anxiety Depression GERD (gastroesophageal reflux disease) History of gout History of seizure Hypokalemia Hypomagnesemia Surgical History History of ankle surgery History of shoulder surgery Family History Grandmother (Maternal) Non-Hodgkin lymphoma Other Alcoholism in family Cancer Diabetes Social History Preferred Language: Niuean Communication Ability: Effective Visual Impairment: No Limitations Signals Intelligence Analysis Manager Required: No Beliefs That Will Affect Care: None marital status: Single Current Living Situation: Other Current Living Situation Comment: lives with friendCe current occupational status: employed 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 and A total of 10 systems reviewed and were otherwise negative Physical Exam Vital Signs Vital Signs - 24 hr 03/13/19 12:56 03/13/19 13:28 03/13/19 13:30 Temperature 36.9 C Temperature Source Oral Sepsis Recent Fever Within 48 Hours No Sepsis Action Taken by Nursing No Action Required Pulse Rate 82 92 H 91 H Pulse Rate from SpO2 Sensor 92 H 96 H Respiratory Rate 20 22 21 Respiratory Effort / Characteristics Non-Labored Respiratory Depth Normal Blood Pressure 158/83 H 157/80 H 152/86 H Blood Pressure Mean 108 105 108 Pulse Oximetry 94 100 99 Oxygen Delivery Method Room Air 03/13/19 14:00 03/13/19 14:01 03/13/19 14:30 Temperature Temperature Source Sepsis Recent Fever Within 48 Hours Sepsis Action Taken by Nursing Pulse Rate 94 H 96 H 103 H Pulse Rate from SpO2 Sensor 95 H 96 H 103 H Respiratory Rate 13 12 Respiratory Effort / Characteristics Respiratory Depth Blood Pressure 154/85 H 135/71 Blood Pressure Mean 108 92 Pulse Oximetry 100 99 98 Oxygen Delivery Method 03/13/19 15:00 03/13/19 15:01 03/13/19 15:30 Temperature Temperature Source Sepsis Recent Fever Within 48 Hours Sepsis Action Taken by Nursing Pulse Rate 78 Pulse Rate from SpO2 Sensor 83 78 82 Respiratory Rate 20 Respiratory Effort / Characteristics Respiratory Depth Blood Pressure 134/75 121/65 Blood Pressure Mean 94 83 Pulse Oximetry 94 94 96 Oxygen Delivery Method 03/13/19 16:00 03/13/19 16:30 03/13/19 17:00 Temperature Temperature Source Sepsis Recent Fever Within 48 Hours Sepsis Action Taken by Nursing Pulse Rate 92 H Pulse Rate from SpO2 Sensor 105 H 81 Respiratory Rate 20 Respiratory Effort / Characteristics Respiratory Depth Blood Pressure 141/75 H 120/67 148/93 H Blood Pressure Mean 97 84 111 Pulse Oximetry 98 99 Oxygen Delivery Method 03/13/19 17:30 03/13/19 17:31 03/13/19 18:00 Temperature Temperature Source Sepsis Recent Fever Within 48 Hours Sepsis Action Taken by Nursing Pulse Rate 81 77 77 Pulse Rate from SpO2 Sensor Respiratory Rate 21 25 H 22 Respiratory Effort / Characteristics Respiratory Depth Blood Pressure 142/76 H 118/58 L Blood Pressure Mean 98 78 Pulse Oximetry Oxygen Delivery Method Constitutional: Vital signs reviewed. Eyes: Pupils are equal round reactive to light. Conjunctiva are noninjected. ENT: Pharynx is clear without erythema or exudate. Mucous membranes are dry. Neck supple without meningeal signs. Respiratory: Clear to auscultation bilaterally. Breath sounds are equal bilaterally. Cardiovascular: Regular rate and rhythm. No rubs or gallops. GI: Soft, nondistended and nontender. Bowel sounds are present. Musculoskeletal: No peripheral edema. No lower extremity tenderness. Integumentary: No cyanosis. Neurological: The patient is awake and alert. Significant tremors. Psychiatric: Anxious. Course 1425: Medical records reviewed. The patient was seen in room C12B, a physical examination was performed. 1551: I reassessed the patient, he just vomited and is shaky. 1625: I spoke with Dr. Vargas, [facility] Hospitalist, who agreed to accept the patient for further admission. 1630: The patient was admitted. Administered Medications Lorazepam (Ativan) 1 mg in 2 mls @ 2 mls/min IV UD PRN; Protocol PRN Reason: EtOH Withdrawl AWSS Score 6,7 Stop: 04/12/19 20:19 Last Admin: 03/13/19 21:10 Dose: 2 mls/min Documented by: [id number] Multivitamins 10 ml/ Thiamine HCl 100 mg/ Folic Acid 1 mg/Sodium Chloride 1,011.2 mls @ 500 mls/hr IV .Q2H2M ONE Stop: 03/13/19 22:21 Last Admin: 03/13/19 21:07 Dose: 500 mls/hr Documented by: [id number] Famotidine 20 mg/ Syringe 5 mls @ 2.5 mls/min IV BID JENN Stop: 04/12/19 20:59 Last Admin: 03/13/19 21:08 Dose: 2.5 mls/min Documented by: [id number] Folic Acid 1 mg/ Syringe 10 mls @ 5 mls/min IV QAM JENN Stop: 04/12/19 20:44 Last Admin: 03/13/19 21:09 Dose: 5 mls/min Documented by: [id number] Trazodone HCl (Desyrel) 50 mg PO HS JENN Stop: 04/12/19 20:59 Last Admin: 03/13/19 21:09 Dose: 50 mg Documented by: [id number] Vitamin B Complex (Vitamin B Complex) 1 tab PO DAILY JENN Stop: 04/12/19 20:19 Last Admin: 03/13/19 21:08 Dose: 1 tab Documented by: [id number] Discontinued Medications Diphenhydramine HCl (Benadryl) 25 mg IV NOW STA Stop: 03/13/19 15:49 Last Admin: 03/13/19 16:32 Dose: 25 mg Documented by: [id number] Lorazepam (Ativan) 1 mls @ 0.0033 mls/min IM NOW STA Stop: 03/13/19 19:31 Last Admin: 03/13/19 14:36 Dose: Not Given Documented by: [id number] Multivitamins 10 ml/ Thiamine HCl 100 mg/ Folic Acid 1 mg/Sodium Chloride 1,011.2 mls @ 1,011.2 mls/hr IV .Q1H ONE Stop: 03/13/19 15:27 Last Infusion: 03/13/19 17:16 Dose: 0 mls/hr Documented by: [id number] Admin: 03/13/19 15:47 Dose: 1,011.2 mls/hr Documented by: [id number] Lorazepam (Ativan) 2 mg in 4 mls @ 4 mls/min IV NOW STA Stop: 03/13/19 14:35 Last Admin: 03/13/19 14:38 Dose: 4 mls/min Documented by: [id number] Potassium Chloride (K Michael / Wtr) 10 meq in 100 mls @ 100 mls/hr IV ONE ONE Stop: 03/13/19 16:47 Last Infusion: 03/13/19 18:59 Dose: 0 mls/hr Documented by: [id number] Admin: 03/13/19 16:33 Dose: 100 mls/hr Documented by: [id number] Lorazepam (Ativan) 1 mg in 2 mls @ 2 mls/min IV NOW STA Stop: 03/13/19 15:49 Last Admin: 03/13/19 16:33 Dose: 2 mls/min Documented by: [id number] Thiamine HCl 100 mg/ Syringe 10 mls @ 2 mls/min IV QAM STA Stop: 03/13/19 20:43 Last Admin: 03/13/19 21:09 Dose: 2 mls/min Documented by: [id number] Medical Decision Making Differential Diagnosis Differential Diagnosis: Alcohol withdraw, alcohol abuse, AKA, delirium tremens, withdraw seizures. Medical Records Attestation: I reviewed the patient's medical records. The patient was admitted on January 26, 2019 for alcohol withdraw seizures. He had no recurrent seizures during his stay and was discharged for outpatient s ervices. Home Medications Current Medication List: was personally reviewed by me Laboratory Data Attestation: I reviewed the patient's lab results. Result diagrams: 03/13/19 13:28 03/13/19 13:28 Lab Results 03/13/19 03/13/19 03/13/19 Range/Units 13:28 13:28 13:28 WBC 4.85 (4.8-10.8) K/uL RBC 4.75 (4.7-6.1) M/uL Hgb 14.4 (14.0-18.0) g/dL Hct 41.6 L (42-52) % MCV 87.6 (80-100) fL MCH 30.3 (25-34) pg MCHC 34.6 (32-36) g/dL RDW Std Deviation 42.7 (36.4-46.3) fL RDW Coeff of Tj 13.4 (11.5-14.5) % Plt Count 74 L (130-400) K/uL MPV 10.5 H (7.4-10.4) fL Immature Gran % (Auto) 0.4 % Neut % (Auto) 67.5 % Lymph % (Auto) 20.6 % Churchill % (Auto) 11.3 % Eos % (Auto) 0.0 % Baso % (Auto) 0.2 % Immature Gran # (Auto) 0.02 (0.00-0.02) K/uL Neut # (Auto) 3.27 (1.4-6.5) K/uL Lymph # (Auto) 1.00 L (1.2-3.4) K/uL Churchill # (Auto) 0.55 (0.11-0.59) K/uL Eos # (Auto) 0.00 (0-0.5) K/uL Baso # (Auto) 0.01 (0-0.2) K/uL Platelet Estimate Decreased L (Normal) Sodium 138 (136-145) mmol/L Potassium 2.8 L (3.5-5.1) mmol/L Chloride 100 (98-107) mmol/L Carbon Dioxide 22 (21-32) mmol/L Anion Gap 16.0 H (3-11) BUN 10 (7-18) mg/dl Creatinine 0.73 (0.6-1.4) mg/dl Est Cr Clr Drug Dosing Not Reportable Est GFR ( Amer) 123.6 Est GFR (Non-Af Amer) 106.6 BUN/Creatinine Ratio 13.2 (10-20) Glucose 170 H (70-99) mg/dl Calcium 9.0 (8.5-10.1) mg/dl Total Bilirubin 1.4 H (0.2-1) mg/dl AST 118 H (15-37) U/L ALT 107 H (12-78) U/L Alkaline Phosphatase 73 (45-117) U/L Total Protein 8.2 (6.4-8.2) gm/dl Albumin 4.3 (3.4-5.0) gm/dl Globulin 3.9 (2.5-4.0) gm/dl Albumin/Globulin Ratio 1.1 (0.9-2) Ethyl Alcohol mg/dL 96.2 H (0-3) mg/dl ECG Data Attestation: I personally reviewed and interpreted this ECG as follows: Indication: other (Alcohol Withdraw) Rate (beats per minute): 52 Rhythm: normal sinus Findings: + other (QTC 486) and + prolonged QT; no ST elevation Blood Pressure Blood Pressure Findings: Elevated blood pressure Blood Pressure Disposition: further management by hospitalist [facility] Narrative I did evaluate the patient as noted above. The patient is presenting with alcohol withdrawal. He has a history of delirium tremens and alcohol withdrawal seizure. He does wish to be admitted again for medical detox. IV access was established. The patient was placed on a continuous air sampling and monitoring. I did treat the patient with Ativan 2 mg IV. He is also given a banana bag IV. I did order and personally review the patient's 12-lead EKG as described above. He has a prolonged QT interval but no acute ischemic changes. I did order and review the patient's blood work as noted in the electronic medical record. He has hypokalemia. I did treat him with IV KCl. His platelets are 74,000. Ethanol level is 96. I did reevaluate the patient. He is having persistent symptoms and vomiting here. He was given additional Ativan IV as well as Benadryl IV. I did not treat him with Zofran because of his prolonged QT interval. I did discuss the case with the hospitalist and family caseworker. Impression & Plan Alcohol withdrawal syndrome, Alcohol dependence, Hypokalemia, Prolonged QT interval, Thrombocytopenia Discharge Plan Visit Data *Final* Discharge Date/Time: 03/13/19 20:05 Chief Complaint: Alcohol Withdrawal Stated Complaint: SEIZURE, HX OF SAME ED Provider: Clark Calderon Discharge Problem: Alcohol withdrawal syndrome, Alcohol dependence, Hypokalemia, Prolonged QT interval, Thrombocytopenia Patient Disposition: Admitted As Inpatient Discharge Instructions Interventions: ED Discharge Assessment Last Done: 03/13/19 20:05 The scribe's documentation has been prepared under my direction and personally reviewed by me in its entirety. I confirm that the note above accurately reflects all work, treatment, procedures, and medical decision making performed by me.
--- NOTE | 2019-03-13 18:02 | History & Physical Report ---
Date of Service March 13, 2019 Assessment & Plan (1) Pneumonia: Admit to inpatient on telemetry Vital signs every 4 hours Follow-up urinary cultures,blood cultures, respiratory cultures Started ceftriaxone and doxycycline for pneumonia and it will also cover for urinary tract infection [facility] protocol for alcohol withdrawal CBC CMP daily Replenish electrolytes Hold DVT prophylaxis since patient is most likely cirrhotic with elevated liver function test and decreased platelets Trend down AST and ALT. Liver sono pending Encourage ambulation, put SCDs and teds Full code Present on Admission?: Yes (2) Complicated urinary tract infection: As above (3) Hypokalemia: Replenish potassium with 100 cc of normal saline with 20 of potassium. Monitor daily and replenish as needed Present on Admission?: Yes (4) Alcohol withdrawal syndrome: Patient advised to stop drinking. Recommended to join AA .Other management please see above Present on Admission?: Yes (5) Thrombocytopenia: Most likely related to chronic alcoholism and poor bone marrow production jointed with elevated liver enzymes and hepatic cirrhosis. Patient was again advised to stop drinking. Present on Admission?: Yes (6) Abnormal LFTs: As above Present on Admission?: Yes History of Present Illness Chief Complaint: Alcohol abuse and alcohol withdrawal Primary Care Provider: Tushar Valerio Patient is a 53 years old male with past medical history of alcohol abuse, GERD, abnormal LFTs, alcoholic pancreatitis, prolonged QT interval who presents to the emergency room with a complaint of of palpitations, cold sweats, shaking, vomiting violently for the past 2 days. Last drink was last night it was a pint of vodka. Patient denies headache fever chills, chest pain, shortness of breath, abdominal pain, hematemesis, melena, hemoptysis, hematuria or dysuria. Labs reviewed: WBC 4.85 hemoglobin 14.4, hematocrit 41.6, platelets 74. Patient has chronically decreased platelet count. PT 11.5, INR 1.1, sodium 138 potassium 2.8, BUN 10 creatinine 0.73 GFR 106.6, ALT 107 AST 118. Magnesium pending. Urine positive for nitrates, and urobilinogen. Leukocyte Estrace is negative normal count of viable cells 1-5. CT head negative for acute intracranial findings.Near complete opacification of the left maxillary sinus. Chest x-rays: right upper lobe and left basilar airspace opacities which are new from the prior studies this favors pneumonia. Small bilateral pleural effusions. Decision was made to admit patient to PCU on telemetry for pneumonia, urinary tract infection and alcohol withdrawal. Allergies Allergy/AdvReac Type Severity Reaction Status Date / Time No Known Allergies Allergy Verified 03/13/19 13:33 Home Medications Home Medications Medication Instructions Recorded Confirmed Type trazodone 50 mg PO HS 01/26/19 03/13/19 History multivitamin-iron (hematinic) 1 tab PO DAILY 03/11/19 03/13/19 History tablet thiamine HCl (vitamin B1) 100 mg 100 mg PO BID #60 tab 03/11/19 03/13/19 History tablet triamcinolone acetonide 55 mcg 2 sprays INTRANASAL DAILY PRN 03/11/19 03/13/19 History nasal spray aerosol #16.9 ml vitamin B complex tablet 1 tab PO DAILY 03/11/19 03/13/19 History Past Med/Surg History Medical History Prolonged QT interval (Acute) Compression fracture of body of thoracic vertebra (Resolved) Pulmonary embolism (Resolved) 2011 Anxiety Depression GERD (gastroesophageal reflux disease) History of gout History of seizure Hypokalemia Hypomagnesemia Surgical History History of ankle surgery History of shoulder surgery Family History Grandmother (Maternal) Non-Hodgkin lymphoma Other Alcoholism in family Cancer Diabetes Social History Preferred Language: Lao Communication Ability: Effective Visual Impairment: No Limitations Shingle Inspector Required: No Beliefs That Will Affect Care: None marital status: Single Current Living Situation: Other Current Living Situation Comment: lives with friendCe current occupational status: employed 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 Feels Safe at Home: Yes Smoking Status: Never smoker Second Hand Exposure: No ; Hx Alcohol Use: Yes Alcohol type: beer Hx Substance Use: No Review of Systems Review of Systems: All systems reviewed & are unremarkable except as noted in HPI & below Physical Exam Constitutional: WD/WN, vitals as above well developed, + ill appearing and + intoxicated appearing Eyes: PERRL, conjunctivae normal, anicteric sclerae ENMT: external ear and nose normal, oropharynx normal Neck: trachea midline, no thyromegaly Respiratory: normal respiratory effort Auscultation: + crackles, + wheezes and + bronchovesicular breath sounds Cardiovascular: RRR, no murmur, no edema Chest (Breasts): normal inspection/palpation of breasts Gastrointestinal (Abdomen): normal bowel sounds, soft, nontender, no hepatosplenomegaly Musculoskeletal: no cyanosis or clubbing, extremities motor strength 5/5 Skin: no rashes, warm and dry Neurologic: patellar DTR's 2+ bilat, sensation intact Psychiatric: A+Ox3, euthymic affect Lymphatic: no cervical or axillary lymphadenopathy Results & Data Vital Signs (Past 12 Hours) Vital Signs Temp Pulse Resp BP Pulse Ox 03/13/19 16:00 141/75 H 98 03/13/19 15:30 78 20 121/65 96 03/13/19 15:01 94 03/13/19 15:00 134/75 94 03/13/19 14:30 103 H 135/71 98 03/13/19 14:01 96 H 12 99 03/13/19 14:00 94 H 13 154/85 H 100 03/13/19 13:30 91 H 21 152/86 H 99 03/13/19 13:28 92 H 22 157/80 H 100 03/13/19 12:56 36.9 C 82 20 158/83 H 94 Code Status & VTE Plan Code Status Full code PG Care Time/CCT Total # of Minutes Spent Total Time Spent with Patient: Total time spent is greater than 50% in coordination of care (as documented) at patient's floor/unit and/or counseling patient: (1) Alcohol withdrawal syndrome Complication of substance-induced condition: uncomplicated Qualified Code(s): F10.230 - Alcohol dependence with withdrawal, uncomplicated
[2019-03-13] MEDS ORDERED: LORazepam 3 MG/6 ML VIAL IV PRN (20:20)
[2019-03-13] MEDS ORDERED: ATIVAN IV ALCOHOL WITHDRAWL IV SCH (20:20)
[2019-03-13] MEDS ORDERED: ALBUT/IPRATROP 3MG/0.5MG NEB 3 ML VIAL NEB PRN (20:20)
[2019-03-13] MEDS ORDERED: LORazepam 2 MG/4 ML VIAL IV PRN (20:20)
[2019-03-13] MEDS ORDERED: TRIAMCINOLONE ACET NASAL SPRAY 10.8ML BTL NAE PRN (20:20)
[2019-03-13] MEDS ORDERED: LORazepam 1 MG/2 ML VIAL IV PRN (20:20)
[2019-03-13] MEDS ORDERED: DOXYCYCLINE HYCLATE 100 MG in DEXTROSE 5% 100 ML IV STA (20:20)
[2019-03-13] MEDS ORDERED: THIAMINE HCL 100 MG in SYRINGE 9 ML IV STA (20:39)
[2019-03-13 20:51] LABS: INR 1.1 (0.9-1.1); Partial Thromboplastin Ratio 0.9; Partial Thromboplastin Time 25.7 Seconds (21.0-31.0); Prothrombin Time 11.5 Seconds (9.0-12.0)
[2019-03-13] MEDS: FAMOTIDINE 20 MG in SYRINGE 3 ML IV SCH (21:08)
[2019-03-13] MEDS: VITAMIN B COMPLEX TAB PO SCH (21:08)
[2019-03-13] MEDS: TRAZODONE HCL 50 MG TAB PO SCH (21:09)
[2019-03-13] MEDS: FOLIC ACID 1 MG in SYRINGE 9.8 ML IV SCH (21:09)
[2019-03-13] MEDS: LORazepam 1 MG/2 ML VIAL IV PRN (21:10)
--- NOTE | 2019-03-13 21:48 | Ultrasound Report ---
US liver CLINICAL HISTORY: 53 years-old Male presenting with elevate LFT. TECHNIQUE: Real-time grayscale and limited color Doppler ultrasound imaging of the abdomen limited to the right upper quadrant was performed. COMPARISON: CT from 07/19/2018. FINDINGS: Pancreas: Visualized portions of the pancreatic head and body normal. Liver: Hyperechogenic parenchyma with heterogeneous echotexture, likely indicating fibrosis or steato sis. The liver measures 17.3 cm in maximal sagittal dimension. No sonographic evidence of hepatic mas s. Main portal vein patent with normal directional flow. Biliary: No intrahepatic biliary ductal dilatation. Common bile duct measures up to 3 mm in diameter. Gallbladder: Gallbladder sludge. No evidence of gallstones, gallbladder wall thickening, gallbladder distention, or pericholecystic fluid or inflammatory change. Sonographic Luciano's sign negative. Right kidney: Normal in appearance without evidence of hydronephrosis. Ascites: None. Other: None. IMPRESSION: 1. Gallbladder sludge. No cholelithiasis or biliary ductal dilatation. 2. Hyperechogenic and heterogeneous liver parenchyma suggests underlying fibrosis or steatosis. Nota shaye, hepatic steatosis was evident on prior CT. Elevated liver function tests could indicate steatohe patitis as a cause for abdominal symptoms. Electronically signed by: Ben Garcia M.D. 03/13/2019 9:47 PM
[2019-03-13] MEDS ORDERED: cefTRIAXone SODIUM 1,000 MG in DEXTROSE 5% 50 ML IV SCH (22:00)
[2019-03-13] MEDS: CEROVITE ADV FORMULA TAB PO SCH (22:09)
[2019-03-13] MEDS: PATIENT'S HEIGHT AND/OR WEIGHT NEEDED SCH ×2 (22:44→22:45)
[2019-03-14] MEDS: LORazepam 1 MG/2 ML VIAL IV PRN (00:08)
[2019-03-14 06:49] LABS: Hematocrit (blood only) 39.4 % (42-52); Hemoglobin 13.3 g/dL (14.0-18.0); Mean Corpuscular Hemoglobin 29.8 pg (25-34); Mean Corpuscular Hgb Conc 33.8 g/dL (32-36); Mean Corpuscular Volume 88.3 fL (80-100); RDW Coefficient of Variation 13.2 % (11.5-14.5); RDW Standard Deviation 42.8 fL (36.4-46.3); Red Blood Count 4.46 M/uL (4.7-6.1); White Blood Count 5.05 K/uL (4.8-10.8)
[2019-03-14 07:03] LABS: Mean Platelet Volume 10.3 fL (7.4-10.4); Platelet Count 51 K/uL (130-400)
[2019-03-14 07:25] LABS: Basophils # (auto) 0.01 K/uL (0-0.2); Basophils % (auto) 0.2 %; Eosinophils # (auto) 0.01 K/uL (0-0.5); Eosinophils % (auto) 0.2 %; Lymphocytes # (auto) 1.47 K/uL (1.2-3.4); Lymphocytes % (auto) 29.1 %; Monocytes # (auto) 0.52 K/uL (0.11-0.59); Monocytes % (auto) 10.3 %; Neutrophils # (auto) 3.04 K/uL (1.4-6.5); Neutrophils % (auto) 60.2 %
[2019-03-14 07:30] LABS: Albumin Globulin Ratio 0.9 (0.9-2); Albumin Level 3.4 gm/dl (3.4-5.0); BUN Creatinine Ratio 10.2 (10-20); Bilirubin,Total 2.8 mg/dl (0.2-1); Calcium 8.1 mg/dl (8.5-10.1); Creatinine Clr Calc Pharmacy 126.7 ml/min; Est GFR (African American) 128.8; Est GFR (Non-African American) 111.2; Globulin 3.6 gm/dl (2.5-4.0); Potassium 2.4 mmol/L (3.5-5.1)
[2019-03-14] MEDS: FAMOTIDINE 20 MG in SYRINGE 3 ML IV SCH (07:55)
[2019-03-14] MEDS: THIAMINE HCL 100 MG in SYRINGE 9 ML IV SCH (07:56)
[2019-03-14] MEDS: CEROVITE ADV FORMULA TAB PO SCH (07:56)
[2019-03-14] MEDS: FOLIC ACID 1 MG in SYRINGE 9.8 ML IV SCH (07:56)
[2019-03-14] MEDS: VITAMIN B COMPLEX TAB PO SCH (07:56)
[2019-03-14] MEDS ORDERED: MAGNESIUM SULFATE / D5W 1 GM/100 ML BAG IV ONE (08:00)
[2019-03-14] MEDS: POTASSIUM CHLORIDE 20 MEQ TABCR PO SCH ×3 (08:34→20:05)
[2019-03-14] MEDS: POTASSIUM CHLORIDE / WTR 10 MEQ/100 ML PLCT IV SCH ×2 (08:38→11:52)
[2019-03-14] MEDS ORDERED: DOXYCYCLINE HYCLATE 100 MG in DEXTROSE 5% 100 ML IV SCH (09:00)
[2019-03-14] MEDS ORDERED: MAGNESIUM SULFATE / D5W 1 GM/100 ML BAG IV SCH (10:45)
--- NOTE | 2019-03-14 11:06 | XRay Report ---
SINGLE VIEW CHEST CLINICAL HISTORY: Cough and chills. FINDINGS: An AP, portable, upright chest radiograph is compared to study dated 07/24/2018 and correlat ed with chest CT dated 07/19/2018. The examination is degraded by portable technique, apical lordotic p ositioning, and patient rotation. The cardiomediastinal silhouette is unremarkable. There are low katie g volumes and bibasilar atelectasis. The lungs and pleural spaces are otherwise clear. No pneumothora x is seen. The skeletal structures are osteopenic. The bony thorax is grossly intact. IMPRESSION: No active disease in the chest. Electronically signed by: Dom Scott M.D. 03/14/2019 11:05 AM
--- NOTE | 2019-03-14 14:48 | Hospitalist Progress Note ---
Date of Service March 14, 2019 Assessment & Plan (1) Alcohol withdrawal syndrome: use Ativan PRN, not meeting criteria on the AW scale place on Ativan q8 PRN for anxiety Thiamine, folate IV fluids patient wants to quit drinking, will involve CM in discharge planning (2) Hypokalemia: due to GI losses place on both PO and IV replacement, repeat this afternoon (3) Thrombocytopenia: due to alcoholism, liver damage lower today at 51, continue to monitor (4) Abnormal LFTs: AST and ALT down slightly to 80's Bilirubin 2.8 today repeat tomorrow likely due to alcohol ingestion Discriminant function score is low, no need for steroids (5) Hypomagnesemia: still low at 1.1 this AM give 2gm IV and repeat in afternoon (6) Pneumonia: no infiltrate seen on CXR, no cough, no dyspnea low grade temperatures will hold Rocephin and Doxycycline initially suspected but ruled out Subjective patient feels nauseated this AM, having dry heaves he is very anxious, has tremors he denies cough or shortness of breath, CXR showed no infiltrates, discussed that we would stop abx he admits that he "screwed up, fell off the wagon" he was sober for about 6 weeks but started drinking again after he lost his job he says he is committed to getting sober, wants to go to counseling he wanted to know results of RUQ US, discussed that he has some fibrosis and steatosis, no cirrhosis yet discussed that if he stops drinking then there will be no further damage to his liver Review of Systems Review of Systems: All systems reviewed & are unremarkable except as noted in HPI & below Constitutional: + fever, + fatigue and + weakness; no chills and no sweats Respiratory: no cough and no dyspnea Cardiovascular: no chest pain, no syncope and no edema Gastrointestinal: + nausea; no abdominal pain, no vomiting, no constipation and no diarrhea/loose stools Neurologic: + tremor(s) Psychiatric: + depression, + anxiety and + substance abuse (alcohol) Physical Exam Constitutional: WD/WN, vitals as above + disheveled and + diaphoretic Eyes: PERRL, conjunctivae normal, anicteric sclerae ENMT: external ear and nose normal, oropharynx normal Neck: trachea midline, no thyromegaly Respiratory: normal respiratory effort, lungs clear to auscultation Cardiovascular: RRR, no murmur, no edema Gastrointestinal (Abdomen): normal bowel sounds, soft, nontender, no hepatosplenomegaly Musculoskeletal: no cyanosis or clubbing, extremities motor strength 5/5 Skin: no rashes, warm and dry Neurologic: patellar DTR's 2+ bilat, sensation intact and PERRL, EOMI, accommodation nl, no face palsy, no dysarthria Motor/Sensory: + tremor (resting, bilateral arms) Psychiatric: Orientation: alert and oriented x 3 Apperance: + disheveled Eye Contact: good eye contact Motor Behavior: + tremor Speech: normal rate/rhythm/volume of speech Affect: + depressed affect Mood: + depressed mood Lymphatic: no cervical or axillary lymphadenopathy Results & Data Vital Signs (Past 12 Hours) Vital Signs Temp Pulse Pulse Pulse Resp BP Pulse Ox 03/14/19 11:58 96 H 03/14/19 10:56 37.6 C H 94 H 20 123/83 97 03/14/19 07:31 37.7 C H 84 18 130/81 95 03/14/19 04:00 37.7 C H 66 18 123/84 99 Laboratory Results Laboratory Results - last 24 hr 03/13/19 03/13/19 03/13/19 20:28 20:28 20:28 WBC RBC Hgb Hct MCV MCH MCHC RDW Std Deviation RDW Coeff of Tj Plt Count MPV Immature Gran % (Auto) Neut % (Auto) Lymph % (Auto) [place] % (Auto) Eos % (Auto) Baso % (Auto) Immature Gran # (Auto) Neut # (Auto) Lymph # (Auto) [place] # (Auto) Eos # (Auto) Baso # (Auto) PT 11.5 INR 1.1 APTT 25.7 PTT Ratio 0.9 Sodium Potassium Chloride Carbon Dioxide Anion Gap BUN Creatinine Est Cr Clr Drug Dosing Est GFR ( Amer) Est GFR (Non-Af Amer) BUN/Creatinine Ratio Glucose Calcium Magnesium 1.1 L Total Bilirubin AST ALT Alkaline Phosphatase Total Protein Albumin Globulin Albumin/Globulin Ratio Vitamin B12 Folate > 24.00 Procalcitonin 03/13/19 03/14/19 03/14/19 20:28 06:32 06:32 WBC 5.05 RBC 4.46 L Hgb 13.3 L Hct 39.4 L MCV 88.3 MCH 29.8 MCHC 33.8 RDW Std Deviation 42.8 RDW Coeff of Tj 13.2 Plt Count 51 L MPV 10.3 Immature Gran % (Auto) 0.0 Neut % (Auto) 60.2 Lymph % (Auto) 29.1 [place] % (Auto) 10.3 Eos % (Auto) 0.2 Baso % (Auto) 0.2 Immature Gran # (Auto) 0.00 Neut # (Auto) 3.04 Lymph # (Auto) 1.47 [place] # (Auto) 0.52 Eos # (Auto) 0.01 Baso # (Auto) 0.01 PT INR APTT PTT Ratio Sodium 139 Potassium 2.4 L* Chloride 101 Carbon Dioxide 27 Anion Gap 11.0 BUN 7 Creatinine 0.66 Est Cr Clr Drug Dosing 126.7 Est GFR ( Amer) 128.8 Est GFR (Non-Af Amer) 111.2 BUN/Creatinine Ratio 10.2 Glucose 87 Calcium 8.1 L Magnesium Total Bilirubin 2.8 H D AST 82 H ALT 82 H Alkaline Phosphatase 67 Total Protein 7.0 Albumin 3.4 Globulin 3.6 Albumin/Globulin Ratio 0.9 Vitamin B12 Folate Procalcitonin < 0.05 03/14/19 03/14/19 06:32 06:32 WBC RBC Hgb Hct MCV MCH MCHC RDW Std Deviation RDW Coeff of Tj Plt Count MPV Immature Gran % (Auto) Neut % (Auto) Lymph % (Auto) [place] % (Auto) Eos % (Auto) Baso % (Auto) Immature Gran # (Auto) Neut # (Auto) Lymph # (Auto) [place] # (Auto) Eos # (Auto) Baso # (Auto) PT INR APTT PTT Ratio Sodium Potassium Chloride Carbon Dioxide Anion Gap BUN Creatinine Est Cr Clr Drug Dosing Est GFR ( Amer) Est GFR (Non-Af Amer) BUN/Creatinine Ratio Glucose Calcium Magnesium 1.1 L Total Bilirubin AST ALT Alkaline Phosphatase Total Protein Albumin Globulin Albumin/Globulin Ratio Vitamin B12 947 H Folate Procalcitonin Diagnostic Findings SINGLE VIEW CHEST IMPRESSION: No active disease in the chest. LIVER US IMPRESSION: 1. Gallbladder sludge. No cholelithiasis or biliary ductal dilatation. 2. Hyperechogenic and heterogeneous liver parenchyma suggests underlying fibrosis or steatosis. Notably, hepatic steatosis was evident on prior CT. Elevated liver function tests could indicate steatohepatitis as a cause for abdominal symptoms. Medications Administered Current Inpatient Medications Albuterol (Duoneb) 3 ml NEB QIDR PRN PRN Reason: Shortness Of Breath Or Wheezing Stop: 04/12/19 20:19 Thiamine HCl 100 mg/ Syringe 10 mls @ 2 mls/min IV QAM [facility] Stop: 04/13/19 08:59 Last Admin: 03/14/19 07:56 Dose: 2 mls/min Documented by: Famotidine 20 mg/ Syringe 5 mls @ 2.5 mls/min IV BID JENN Stop: 04/12/19 20:59 Last Admin: 03/14/19 07:55 Dose: 2.5 mls/min Documented by: Folic Acid 1 mg/ Syringe 10 mls @ 5 mls/min IV QAM [facility] Stop: 04/12/19 20:44 Last Admin: 03/14/19 07:56 Dose: 5 mls/min Documented by: Lorazepam (Ativan) 1 mg PO Q8 PRN PRN Reason: Anxiety Stop: 04/13/19 13:09 Multivitamins/Minerals (Multivitamin W/ Minerals Tab) 1 tab PO DAILY [facility] Stop: 04/12/19 20:19 Last Admin: 03/14/19 07:56 Dose: 1 tab Documented by: Ondansetron HCl (Zofran) 4 mg IV Q4H PRN PRN Reason: Nausea Stop: 04/13/19 13:09 Potassium Chloride (Klor-Con M20) 20 meq PO TID [facility] Stop: 04/13/19 08:59 Last Admin: 03/14/19 08:34 Dose: 20 meq Documented by: Trazodone HCl (Desyrel) 50 mg PO HS [facility] Stop: 04/12/19 20:59 Last Admin: 03/13/19 21:09 Dose: 50 mg Documented by: Triamcinolone Acetonide (Nasacort) 2 sprays PRANAY DAILY PRN PRN Reason: Unknown Stop: 04/12/19 20:19 Vitamin B Complex (Vitamin B Complex) 1 tab PO DAILY [facility] Stop: 04/12/19 20:19 Last Admin: 03/14/19 07:56 Dose: 1 tab Documented by: PG Care Time/CCT Total # of Minutes Spent Total Time Spent with Patient: Total time spent is greater than 50% in coordination of care (as documented) at patient's floor/unit and/or counseling patient: (1) Alcohol withdrawal syndrome Complication of substance-induced condition: uncomplicated Qualified Code(s): F10.230 - Alcohol dependence with withdrawal, uncomplicated
[2019-03-14] MEDS: ONDANSETRON INJ 2 MG/ML 2 ML VIAL IV PRN (15:03)
[2019-03-14] MEDS: LORazepam 1 MG TAB PO PRN ×2 (15:03→23:38)
[2019-03-14 16:02] LABS: BUN Creatinine Ratio 6.3 (10-20); Calcium 8.7 mg/dl (8.5-10.1); Creatinine Clr Calc Pharmacy 96.1 ml/min; Est GFR (Non-African American) 99.2; Magnesium 1.7 mg/dl (1.8-2.4); Potassium 3.1 mmol/L (3.5-5.1)
[2019-03-14] MEDS: TRAZODONE HCL 50 MG TAB PO SCH (20:05)
[2019-03-15 07:06] LABS: Hematocrit (blood only) 40.1 % (42-52); Hemoglobin 13.7 g/dL (14.0-18.0); Mean Corpuscular Hgb Conc 34.2 g/dL (32-36); Mean Corpuscular Volume 87.7 fL (80-100); RDW Coefficient of Variation 13.3 % (11.5-14.5); RDW Standard Deviation 42.4 fL (36.4-46.3); Red Blood Count 4.57 M/uL (4.7-6.1); White Blood Count 5.11 K/uL (4.8-10.8)
[2019-03-15 07:09] LABS: Mean Platelet Volume 9.8 fL (7.4-10.4); Platelet Count 52 K/uL (130-400)
[2019-03-15 07:41] LABS: Albumin Level 3.5 gm/dl (3.4-5.0); BUN Creatinine Ratio 11.6 (10-20); Calcium 9.1 mg/dl (8.5-10.1); Creatinine Clr Calc Pharmacy 121.2 ml/min; Est GFR (African American) 126.5; Est GFR (Non-African American) 109.1; Potassium 2.8 mmol/L (3.5-5.1)
[2019-03-15 07:45] LABS: Basophils # (auto) 0.01 K/uL (0-0.2); Basophils % (auto) 0.2 %; Bilirubin,Total 2.3 mg/dl (0.2-1); Eosinophils # (auto) 0.05 K/uL (0-0.5); Globulin 3.6 gm/dl (2.5-4.0); Immature Granulocytes # (auto) 0.01 K/uL (0.00-0.02); Immature Granulocytes % (auto) 0.2 %; Lymphocytes # (auto) 1.33 K/uL (1.2-3.4); Monocytes # (auto) 0.61 K/uL (0.11-0.59); Monocytes % (auto) 11.9 %; Neutrophils % (auto) 60.7 %; Total Protein 7.1 gm/dl (6.4-8.2)
[2019-03-15] MEDS: THIAMINE HCL 100 MG in SYRINGE 9 ML IV SCH (07:55)
[2019-03-15] MEDS: VITAMIN B COMPLEX TAB PO SCH (07:55)
[2019-03-15] MEDS: CEROVITE ADV FORMULA TAB PO SCH (07:55)
[2019-03-15] MEDS: POTASSIUM CHLORIDE 20 MEQ TABCR PO SCH ×3 (07:55→21:37)
[2019-03-15] MEDS: THIAMINE HCL 50 MG TABLET PO SCH (10:22)
[2019-03-15] MEDS: MAGNESIUM OXIDE 400 MG TAB PO SCH (10:22)
[2019-03-15] MEDS: FOLIC ACID 1 MG TAB PO SCH (10:22)
--- NOTE | 2019-03-15 10:45 | Hospitalist Progress Note ---
Date of Service March 15, 2019 Assessment & Plan (1) Alcohol withdrawal syndrome: use Ativan PRN, not meeting criteria on the AW scale place on Ativan q8 PRN for anxiety, will continue for another 24 hours then q12 Thiamine, folate, changed to PO dosing IV fluids can be stopped at this time, eating and drinking well patient wants to quit drinking, will involve CM in discharge planning (2) Hypokalemia: due to GI losses place on both PO and IV replacement up to 2.8 this AM, continue on 20mEq TID today repeat in the AM (3) Thrombocytopenia: due to alcoholism, liver damage stable at 52, continue to monitor daily (4) Abnormal LFTs: AST and ALT stable in the 80's Bilirubin 2.3 today repeat tomorrow likely due to alcohol ingestion Discriminant function score is low, no need for steroids (5) Hypomagnesemia: up to 1.[address] on Mag Oxide 400mg daily (6) Pneumonia: no infiltrate seen on CXR, no cough, no dyspnea low grade temperatures will hold Rocephin and Doxycycline initially suspected but ruled out Subjective patient with some chills and sweats over night, some tightness in his throat he is breathing well, no cough, no chest pain appetite is good, ate eggs, phillip, toast this morning reviewed labs, Mg was still low at 1.7 yesterday afternoon, K is low at 2.8 this AM AST and ALT minimally elevated, bili down a little at 2.3 no events on monitor, will downgrade today Review of Systems Review of Systems: All systems reviewed & are unremarkable except as noted in HPI & below Constitutional: + chills, + sweats, + fatigue, + weakness and + insomnia; no fever Respiratory: no cough and no dyspnea Cardiovascular: no chest pain and no edema Gastrointestinal: no abdominal pain, no nausea, no vomiting, no constipation and no diarrhea/loose stools Integumentary: no rash Psychiatric: + anxiety Physical Exam Constitutional: WD/WN, vitals as above Eyes: PERRL, conjunctivae normal, anicteric sclerae ENMT: external ear and nose normal, oropharynx normal Neck: trachea midline, no thyromegaly Respiratory: normal respiratory effort, lungs clear to auscultation Cardiovascular: RRR, no murmur, no edema Gastrointestinal (Abdomen): normal bowel sounds, soft, nontender, no hepatosplenomegaly Musculoskeletal: no cyanosis or clubbing, extremities motor strength 5/5 Skin: no rashes, warm and dry Neurologic: patellar DTR's 2+ bilat, sensation intact and PERRL, EOMI, accommodation nl, no face palsy, no dysarthria Psychiatric: Orientation: alert and oriented x 3 Eye Contact: good eye contact Speech: normal rate/rhythm/volume of speech Affect: + depressed affect Mood: + depressed mood Lymphatic: no cervical or axillary lymphadenopathy Results & Data Vital Signs (Past 12 Hours) Vital Signs Temp Pulse Pulse Resp BP Pulse Ox 03/15/19 07:52 37.4 C 94 H 20 148/94 H 97 03/15/19 05:05 134/90 03/15/19 03:02 37.0 C 90 16 99 03/15/19 00:13 86 03/15/19 00:00 37.3 C 93 H 16 150/86 H 97 Laboratory Results Laboratory Results - last 24 hr 03/14/19 03/15/19 03/15/19 15:05 06:54 06:54 WBC 5.11 RBC 4.57 L Hgb 13.7 L Hct 40.1 L MCV 87.7 MCH 30.0 MCHC 34.2 RDW Std Deviation 42.4 RDW Coeff of Tj 13.3 Plt Count 52 L MPV 9.8 Immature Gran % (Auto) 0.2 Neut % (Auto) 60.7 Lymph % (Auto) 26.0 [place] % (Auto) 11.9 Eos % (Auto) 1.0 Baso % (Auto) 0.2 Immature Gran # (Auto) 0.01 Neut # (Auto) 3.10 Lymph # (Auto) 1.33 [place] # (Auto) 0.61 H Eos # (Auto) 0.05 Baso # (Auto) 0.01 Sodium 138 137 Potassium 3.1 L D 2.8 L Chloride 102 102 Carbon Dioxide 24 25 Anion Gap 12.0 H 10.0 BUN 5 L 8 Creatinine 0.87 0.69 Est Cr Clr Drug Dosing 96.1 121.2 Est GFR ( Amer) 115.0 126.5 Est GFR (Non-Af Amer) 99.2 109.1 BUN/Creatinine Ratio 6.3 L 11.6 Glucose 105 H 89 Calcium 8.7 9.1 Magnesium 1.7 L Total Bilirubin 2.3 H AST 90 H ALT 84 H Alkaline Phosphatase 74 Total Protein 7.1 Albumin 3.5 Globulin 3.6 Albumin/Globulin Ratio 1.0 Medications Administered Current Inpatient Medications Albuterol (Duoneb) 3 ml NEB QIDR PRN PRN Reason: Shortness Of Breath Or Wheezing Stop: 04/12/19 20:19 Folic Acid (Folvite) 1 mg PO QAM JENN Stop: 04/14/19 08:59 Last Admin: 03/15/19 10:22 Dose: Not Given Documented by: Lorazepam (Ativan) 1 mg PO Q8 PRN PRN Reason: Anxiety Stop: 04/13/19 13:09 Last Admin: 03/14/19 23:38 Dose: 1 mg Documented by: Magnesium Oxide (Mag-Ox) 400 mg PO QAM JENN Stop: 04/14/19 08:59 Last Admin: 03/15/19 10:22 Dose: Not Given Documented by: Multivitamins/Minerals (Multivitamin W/ Minerals Tab) 1 tab PO DAILY JENN Stop: 04/12/19 20:19 Last Admin: 03/15/19 07:55 Dose: 1 tab Documented by: Ondansetron HCl (Zofran) 4 mg IV Q4H PRN PRN Reason: Nausea Stop: 04/13/19 13:09 Last Admin: 03/14/19 15:03 Dose: 4 mg Documented by: Potassium Chloride (Klor-Con M20) 20 meq PO TID JENN Stop: 04/13/19 08:59 Last Admin: 03/15/19 07:55 Dose: 20 meq Documented by: Thiamine HCl (Vitamin B-1) 50 mg PO QAM JENN Stop: 04/14/19 08:59 Last Admin: 03/15/19 10:22 Dose: Not Given Documented by: Trazodone HCl (Desyrel) 50 mg PO HS JENN Stop: 04/12/19 20:59 Last Admin: 03/14/19 20:05 Dose: 50 mg Documented by: Triamcinolone Acetonide (Nasacort) 2 sprays PRANAY DAILY PRN PRN Reason: Unknown Stop: 04/12/19 20:19 Vitamin B Complex (Vitamin B Complex) 1 tab PO DAILY JENN Stop: 04/12/19 20:19 Last Admin: 03/15/19 07:55 Dose: 1 tab Documented by: PG Care Time/CCT Total # of Minutes Spent Total Time Spent with Patient: Total time spent is greater than 50% in coordina tion of care (as documented) at patient's floor/unit and/or counseling patient: (1) Alcohol withdrawal syndrome Complication of substance-induced condition: uncomplicated Qualified Code(s): F10.230 - Alcohol dependence with withdrawal, uncomplicated
[2019-03-15] MEDS: LORazepam 1 MG TAB PO PRN ×2 (15:59→23:53)
[2019-03-15] MEDS: ONDANSETRON INJ 2 MG/ML 2 ML VIAL IV PRN ×2 (15:59→21:37)
[2019-03-15] MEDS: TRAZODONE HCL 50 MG TAB PO SCH (21:37)
[2019-03-16] MEDS: ONDANSETRON INJ 2 MG/ML 2 ML VIAL IV PRN ×3 (05:32→20:04)
[2019-03-16 05:49] LABS: Hematocrit (blood only) 43.2 % (42-52); Hemoglobin 14.6 g/dL (14.0-18.0); Mean Corpuscular Hemoglobin 30.6 pg (25-34); Mean Corpuscular Hgb Conc 33.8 g/dL (32-36); Mean Corpuscular Volume 90.6 fL (80-100); RDW Coefficient of Variation 13.3 % (11.5-14.5); Red Blood Count 4.77 M/uL (4.7-6.1); White Blood Count 7.09 K/uL (4.8-10.8)
[2019-03-16] MEDS: ACETAMINOPHEN 325 MG TAB PO PRN ×2 (05:52→13:40)
[2019-03-16 05:58] LABS: Albumin Globulin Ratio 0.9 (0.9-2); Albumin Level 3.7 gm/dl (3.4-5.0); BUN Creatinine Ratio 12.9 (10-20); Bilirubin,Total 1.4 mg/dl (0.2-1); Calcium 9.1 mg/dl (8.5-10.1); Creatinine Clr Calc Pharmacy 96.1 ml/min; Est GFR (Non-African American) 99.2; Potassium 3.6 mmol/L (3.5-5.1); Total Protein 7.7 gm/dl (6.4-8.2)
[2019-03-16 06:05] LABS: Basophils # (auto) 0.02 K/uL (0-0.2); Basophils % (auto) 0.3 %; Eosinophils # (auto) 0.07 K/uL (0-0.5); Giant Platelets 1+; Immature Granulocytes # (auto) 0.03 K/uL (0.00-0.02); Immature Granulocytes % (auto) 0.4 %; Lymphocytes # (auto) 1.39 K/uL (1.2-3.4); Lymphocytes % (auto) 19.6 %; Mean Platelet Volume 10.3 fL (7.4-10.4); Monocytes # (auto) 0.95 K/uL (0.11-0.59); Monocytes % (auto) 13.4 %; Neutrophils # (auto) 4.63 K/uL (1.4-6.5); Neutrophils % (auto) 65.3 %; Platelet Count 80 K/uL (130-400)
[2019-03-16] MEDS: THIAMINE HCL 50 MG TABLET PO SCH (08:22)
[2019-03-16] MEDS: MAGNESIUM OXIDE 400 MG TAB PO SCH (08:22)
[2019-03-16] MEDS: FOLIC ACID 1 MG TAB PO SCH (08:22)
[2019-03-16] MEDS: LORazepam 1 MG TAB PO PRN ×2 (08:25→20:04)
[2019-03-16] MEDS: CEROVITE ADV FORMULA TAB PO SCH (10:28)
--- NOTE | 2019-03-16 11:03 | Hospitalist Progress Note ---
Date of Service March 16, 2019 Assessment & Plan (1) Alcohol withdrawal syndrome: use Ativan PRN, not meeting criteria on the AW scale decrease Ativan to q12 today, plan to taper quickly on discharge Thiamine, folate, changed to PO dosing, tolerating well IV fluids can be stopped at this time, eating and drinking well patient wants to quit drinking discussed that he should not live with his girlfriend if she continues to drink and is not supportive of his sobriety (2) Hypokalemia: due to GI losses place on both PO and IV replacement up to 3.6 this AM, stop PO replacement today since he is eating well repeat in the AM (3) Thrombocytopenia: due to alcoholism, liver damage up to 80 today, repeat tomorrow (4) Abnormal LFTs: AST and ALT up slightly today Bilirubin down to 1.4 today repeat tomorrow likely due to alcohol ingestion Discriminant function score is low, no need for steroids (5) Hypomagnesemia: continue on Mag Oxide repeat in the AM (6) Pneumonia: no infiltrate seen on CXR, no cough, no dyspnea low grade temperatures will hold Rocephin and Doxycycline initially suspected but ruled out Subjective patient seen this AM, he is still having some tremors, high anxiety discussed his living situation, he is living with his girlfriend who still drinks discussed that it is not ideal to live with someone who drinks while you are trying to stay sober he has no other options at this time he is highly concerned about going home today, feels like he might drink, still having shakes I assured him that vitals are stable and electrolytes are stable will d/c him first thing in the morning tomorrow, he agrees and will work on finding a ride tomorrow labs reviewed, K is normal at 3.6 bili and transaminases still slightly high, repeat tomorrow Review of Systems Review of Systems: All systems reviewed & are unremarkable except as noted in HPI & below Constitutional: + fatigue, + weakness and + insomnia Neurologic: + tremor(s) Psychiatric: + depression, + irritability and + anxiety Physical Exam Constitutional: WD/WN, vitals as above Eyes: PERRL, conjunctivae normal, anicteric sclerae ENMT: external ear and nose normal, oropharynx normal Neck: trachea midline, no thyromegaly Respiratory: normal respiratory effort, lungs clear to auscultation Cardiovascular: RRR, no murmur, no edema Gastrointestinal (Abdomen): normal bowel sounds, soft, nontender, no hepatosplenomegaly Musculoskeletal: no cyanosis or clubbing, extremities motor strength 5/5 Skin: no rashes, warm and dry Neurologic: patellar DTR's 2+ bilat, sensation intact and PERRL, EOMI, accommodation nl, no face palsy, no dysarthria Motor/Sensory: + tremor (resting, bilateral arms) Psychiatric: Orientation: alert and oriented x 3 Eye Contact: good eye contact Motor Behavior: + tremor Speech: normal rate/rhythm/volume of speech Affect: + depressed affect Mood: + depressed mood Lymphatic: no cervical or axillary lymphadenopathy Results & Data Vital Signs (Past 12 Hours) Vital Signs Temp Pulse Resp BP Pulse Ox 03/16/19 07:44 37.1 C 83 20 101/68 96 Laboratory Results Laboratory Results - last 24 hr 03/16/19 03/16/19 05:03 05:03 WBC 7.09 RBC 4.77 Hgb 14.6 Hct 43.2 MCV 90.6 MCH 30.6 MCHC 33.8 RDW Std Deviation 44.0 RDW Coeff of Tj 13.3 Plt Count 80 L D MPV 10.3 Immature Gran % (Auto) 0.4 Neut % (Auto) 65.3 Lymph % (Auto) 19.6 [place] % (Auto) 13.4 Eos % (Auto) 1.0 Baso % (Auto) 0.3 Immature Gran # (Auto) 0.03 H Neut # (Auto) 4.63 Lymph # (Auto) 1.39 [place] # (Auto) 0.95 H Eos # (Auto) 0.07 Baso # (Auto) 0.02 Giant Platelets 1+ Sodium 139 Potassium 3.6 D Chloride 103 Carbon Dioxide 27 Anion Gap 9.0 BUN 11 Creatinine 0.87 Est Cr Clr Drug Dosing 96.1 Est GFR ( Amer) 115.0 Est GFR (Non-Af Amer) 99.2 BUN/Creatinine Ratio 12.9 Glucose 90 Calcium 9.1 Total Bilirubin 1.4 H AST 95 H ALT 100 H Alkaline Phosphatase 72 Total Protein 7.7 Albumin 3.7 Globulin 4.0 Albumin/Globulin Ratio 0.9 Specimen Hemolysis Medications Administered Current Inpatient Medications Acetaminophen (Tylenol) 650 mg PO Q4H PRN PRN Reason: Pain or Fever Stop: 04/15/19 05:36 Last Admin: 03/16/19 05:52 Dose: 650 mg Documented by: Albuterol (Duoneb) 3 ml NEB QIDR PRN PRN Reason: Shortness Of Breath Or Wheezing Stop: 04/12/19 20:19 Folic Acid (Folvite) 1 mg PO QAM [facility] Stop: 04/14/19 08:59 Last Admin: 03/16/19 08:22 Dose: 1 mg Documented by: Lorazepam (Ativan) 1 mg PO Q12 PRN PRN Reason: Anxiety Stop: 04/13/19 13:09 [facility]) [facility] Stop: 04/14/19 08:59 Last Admin: 03/16/19 08:22 Dose: 400 mg Documented by: Multivitamins/Minerals (Multivitamin W/ Minerals Tab) 1 tab PO DAILY [facility] Stop: 04/12/19 20:19 Last Admin: 03/16/19 10:28 Dose: 1 tab Documented by: Ondansetron HCl (Zofran) 4 mg IV Q4H PRN PRN Reason: Nausea Stop: 04/13/19 13:09 Last Admin: 03/16/19 05:32 Dose: 4 mg Documented by: Thiamine HCl (Vitamin B-1) 50 mg PO QAM [facility] Stop: 04/14/19 08:59 Last Admin: 03/16/19 08:22 Dose: 50 mg Documented by: Trazodone HCl (Desyrel) 50 mg PO HS [facility] Stop: 04/12/19 20:59 Last Admin: 03/15/19 21:37 Dose: 50 mg Documented by: Triamcinolone Acetonide (Nasacort) 2 sprays PRANAY DAILY PRN PRN Reason: Unknown Stop: 04/12/19 20:19 Vitamin B Complex (Vitamin B Complex) 1 tab PO DAILY [facility] Stop: 04/12/19 20:19 Last Admin: 03/15/19 07:55 Dose: 1 tab Documented by: PG Care Time/CCT Total # of Minutes Spent Total Time Spent with Patient: Total time spent is greater than 50% in coordination of care (as documented) at patient's floor/unit and/or counseling patient: (1) Alcohol withdrawal syndrome Complication of substance-induced condition: uncomplicated Qualified Code(s): F10.230 - Alcohol dependence with withdrawal, uncomplicated
[2019-03-16] MEDS: POTASSIUM CHLORIDE 20 MEQ TABCR PO SCH (12:01)
[2019-03-16] MEDS: VITAMIN B COMPLEX TAB PO SCH (13:41)
[2019-03-16] MEDS: TRAZODONE HCL 50 MG TAB PO SCH ×2 (20:04→22:19)
[2019-03-17] MEDS: ONDANSETRON INJ 2 MG/ML 2 ML VIAL IV PRN ×2 (00:05→12:00)
[2019-03-17] MEDS: ACETAMINOPHEN 325 MG TAB PO PRN ×2 (00:32→05:59)
[2019-03-17 05:17] LABS: Hematocrit (blood only) 42.7 % (42-52); Hemoglobin 14.5 g/dL (14.0-18.0); Mean Corpuscular Hemoglobin 30.9 pg (25-34); RDW Coefficient of Variation 13.8 % (11.5-14.5); RDW Standard Deviation 44.4 fL (36.4-46.3); Red Blood Count 4.69 M/uL (4.7-6.1); White Blood Count 6.63 K/uL (4.8-10.8)
[2019-03-17 05:18] LABS: Mean Platelet Volume 10.2 fL (7.4-10.4); Platelet Count 92 K/uL (130-400)
[2019-03-17 05:22] LABS: Prothrombin Time 10.7 Seconds (9.0-12.0)
[2019-03-17 05:42] LABS: Albumin Globulin Ratio 0.9 (0.9-2); Albumin Level 3.6 gm/dl (3.4-5.0); BUN Creatinine Ratio 13.4 (10-20); Bilirubin,Total 1.1 mg/dl (0.2-1); Creatinine Clr Calc Pharmacy 93.9 ml/min; Est GFR (African American) 113.9; Est GFR (Non-African American) 98.3; Potassium 3.8 mmol/L (3.5-5.1); Total Protein 7.6 gm/dl (6.4-8.2)
[2019-03-17] MEDS: CEROVITE ADV FORMULA TAB PO SCH (08:09)
[2019-03-17] MEDS: LORazepam 1 MG TAB PO PRN (08:09)
[2019-03-17] MEDS: VITAMIN B COMPLEX TAB PO SCH (08:09)
[2019-03-17] MEDS: MAGNESIUM OXIDE 400 MG TAB PO SCH (08:10)
[2019-03-17] MEDS: FOLIC ACID 1 MG TAB PO SCH (08:10)
[2019-03-17] MEDS: THIAMINE HCL 50 MG TABLET PO SCH (08:10)
--- NOTE | 2019-03-17 12:07 | Discharge Summary ---
Date of Service March 17, 2019 Admission HPI Per Admitting Provider Patient is a 53 years old male with past medical history of alcohol abuse, GERD, abnormal LFTs, alcoholic pancreatitis, prolonged QT interval who presents to the emergency room with a complaint of of palpitations, cold sweats, shaking, vomiting violently for the past 2 days. Last drink was last night it was a pint of vodka. Patient denies headache fever chills, chest pain, shortness of breath, abdominal pain, hematemesis, melena, hemoptysis, hematuria or dysuria. Labs reviewed: WBC 4.85 hemoglobin 14.4, hematocrit 41.6, platelets 74. Patient has chronically decreased platelet count. PT 11.5, INR 1.1, sodium 138 potassium 2.8, BUN 10 creatinine 0.73 GFR 106.6, ALT 107 AST 118. Magnesium pending. Urine positive for nitrates, and urobilinogen. Leukocyte Estrace is negative normal count of viable cells 1-5. CT head negative for acute intracranial findings.Near complete opacification of the left maxillary sinus. Chest x-rays: right upper lobe and left basilar airspace opacities which are new from the prior studies this favors pneumonia. Small bilateral pleural effusions. Decision was made to admit patient to PCU on telemetry for pneumonia, urinary tract infection and alcohol withdrawal. Principal Diagnosis Alcohol withdrawal Discharge Exam Constitutional WD/WN, vitals as above Eyes PERRL, conjunctivae normal, anicteric sclerae ENMT external ear and nose normal, oropharynx normal Neck trachea midline, no thyromegaly Respiratory normal respiratory effort, lungs clear to auscultation Cardiovascular RRR, no murmur, no edema Gastrointestinal (Abdomen) normal bowel sounds, soft, nontender, no hepatosplenomegaly Musculoskeletal no cyanosis or clubbing, extremities motor strength 5/5 Skin no rashes, warm and dry Neurologic patellar DTR's 2+ bilat, sensation intact and PERRL, EOMI, accommodation nl, no face palsy, no dysarthria Psychiatric Orientation: alert and oriented x 3 Eye Contact: good eye contact Speech: normal rate/rhythm/volume of speech Lymphatic no cervical or axillary lymphadenopathy Discharge Data Allergies Allergy/AdvReac Type Severity Reaction Status Date / Time No Known Allergies Allergy Verified 03/13/19 13:33 Consultations 03/13/19 15:48 ED Decision to Admit Stat 03/13/19 20:20 Consult Case Management - Discharge Planning Routine Ordered Studies 03/13/19 20:20 US liver Stat Hospital Course (1) Alcohol withdrawal syndrome: use Ativan PRN, not meeting criteria on the AW scale Thiamine, folate, changed to PO dosing, tolerating well IV fluids can be stopped at this time, eating and drinking well patient wants to quit drinking discussed that he should not live with his girlfriend if she continues to drink and is not supportive of his sobriety he plans to follow up with counseling and AA his parents are driving up from [place] to take him home from the hospital will give short course of Ativan 0.5mg PO daily PRN for any further tremors/anxiety (2) Hypokalemia: due to GI losses place on both PO and IV replacement resolved on 03/16 (3) Thrombocytopenia: due to alcoholism, liver damage up to 92 on day of discharge (4) Abnormal LFTs: AST and ALT persistently high, minimally at 84 and 105 respectively Bilirubin down to 1.1 today likely due to alcohol ingestion Discriminant function score is low, no need for steroids (5) Hypomagnesemia: continue on Mag Oxide Mg level better Total Time Total Time Spent Total Time Spent (In Minutes): 33 minutes Total Time Includes: Examination of the Patient, Discharge Planning and Medication Reconciliation Discharge Plan Discharge Items Patient Disposition: Home - Self-Care Reason For Visit: ALCOHOL WITHDROWL, PNEUMONIA, UTI Discharge Diagnosis: Alcohol withdrawal Mild alcohol hepatitis Liver steatosis Hypokalemia, hypomagnesemia Condition on Discharge: Good Goals: stay sober need to abstain from all alcohol, as further drinking will lead to cirrhosis go to AA meetings, counseling, whatever you need to do to stay sober Activity: Resume your previous activity Non-emergency contact: Primary Care Provider Call non-emergency contact if: you have any medication questions and your symptoms worsen Follow-up/Referrals: Heather Perez MD [Primary Care Provider] - 03/20/19 3:00 pm (Please, follow up with Dr. Perez on WednesdayMarch 20 at 3:00 pm. *If you need to change this appointment, call the office at [phone].) Diet: Regular Addtl Attending Provider Instructions: Medications: - LORAZEPAM: 0.5mg tablets, can take one a day as needed for tremors/anxiety, only 4 tabs Alcohol withdrawal: completed, may still have some occasional tremors and anxiety but no signs of true withdrawal Alcohol abuse, early signs of liver damage cannot stress enough that the longer you continue to drink, you will inflict damage to liver you have some fibrosis and steatosis on liver ultrasound already you will continue to lay down scar tissue that is irreversible cirrhosis is a terrible, debilitating disease that you want to avoid at all costs do whatever it takes to stop drinking FOLLOW UP - Dr. Perez on 03/20 Pending Studies at Discharge: No Stand-Alone Forms: My [facility] Medications and DC Order Prescriptions: New lorazepam 0.5 mg tablet 0.5 mg PO DAILY PRN (Reason: anxiety) Qty: 4 RF: 0 Continued vitamin B complex [B Complex 1] tablet 1 tab PO DAILY RF: 0 triamcinolone acetonide 55 mcg aerosol,spray 2 sprays intranasal DAILY PRN (Reason: Unknown) Qty: 16.9 RF: 0 Central-Yohan tablet 1 tab PO DAILY RF: 0 thiamine HCl (vitamin B1) 100 mg tablet 100 mg PO BID Qty: 60 RF: 0 pantoprazole 40 mg tablet,delayed release (DR/EC) 40 mg PO DAILY Qty: 30 RF: 0 magnesium oxide 400 mg (241.3 mg magnesium) tablet 400 mg PO BID Qty: 30 RF: 0 cholecalciferol (vitamin D3) 2,000 unit capsule 2,000 units PO DAILY Qty: 30 RF: 0 trazodone 50 mg tablet 50 mg PO HS RF: 0 Discharge Orders: Discharge Order (Routine); Ordered 03/17/19 Ordered By: Junior Rodas Admission Data Admit Date/Time: 03/13/19 18:24 Attending Provider: Junior Rodas Admit Provider: Justice Vargas Primary Care Provider: Heather Perez Other Providers: Justice Vargas Other Interventions: Discharge Summary Assessment (RN) Last Done: 03/17/19 08:56
== END 2019-03-17 15:33 | disposition home or self-care (01) | DRG 897 ==
LOC: ED 12:53 → 2S 18:24 → SUATTDRO 18:24 → 2S 20:05 → 4W 03-15 12:44

== ENCOUNTER 2019-07-06 12:07 | Observation (INO) ==
[2019-07-06] MEDS ORDERED: KETOROLAC TROMETHAMINE 15 MG/ML VIAL IV STA (12:47)
--- NOTE | 2019-07-06 12:55 | XRay Report ---
XR chest 1V portable CLINICAL HISTORY: Left-sided rib pain. COMPARISON STUDY: Chest radiograph and left rib series July 06, 2019. Chest CT July 06, 2019. FINDINGS: There is no pneumothorax. A small left pleural effusion/hemothorax is noted. Mild left basi lar opacity favors atelectasis. Multiple acute left-sided rib fractures are better depicted on prior chest CT. Lung volumes are diminished. There is no evidence for pulmonary edema. IMPRESSION: 1. Redemonstration of multiple acute left-sided rib fractures. Small left pleural effusion/hemothorax . 2. No pneumothorax. 3. Mild left basilar opacity which favors atelectasis. ACT 112: Negative or not required by law. Electronically signed by: Akhil Russell M.D. 07/06/2019 12:54 PM
[2019-07-06] MEDS ORDERED: ONDANSETRON INJ 2 MG/ML 2 ML VIAL IV STA (13:04)
[2019-07-06] MEDS ORDERED: LORazepam 1 MG/2 ML VIAL IV STA (13:04)
--- NOTE | 2019-07-06 13:42 | History & Physical Report ---
Date of Service July 06, 2019 Assessment & Plan (1) Chest pain: Admit to PCU on telemetry for atypical chest pain Atypical chest pain is likely due to multiple left-sided rib fracture Will check troponin x3 even though less likely. First troponin negative Monitor electrolytes and replenish Pain management Antinausea management DVT prophylaxis SCDs and teds Patient is a full code Present on Admission?: Yes (2) Ambulatory dysfunction: Patient has frequent falls likely due to alcohol intoxication We will start physical and Occupational Therapy to evaluate patient gaits and balance. Present on Admission?: Yes (3) Multiple fractures of ribs of left side: Patient has nondisplaced fractures of the ribs Continue pain management and monitoring Follow-up closely small hemothorax on the right side and repeat chest x-ray in a.m. Supplemental oxygen to peak keep oxygenation above 92% Incentive spirometry as tolerated Present on Admission?: Yes (4) Hypomagnesemia: Magnesium is replenished with 1 g of magnesium IV Continue with magnesium oxide 400 mg twice daily Continue monitoring magnesium Present on Admission?: Yes (5) Alcohol abuse: Patient was directed to stop drinking alcohol. Join [employer] Started on CIWA protocol Continue thiamine vitamin B complex and folic acid. Gentle IV fluids hydration Present on Admission?: Yes (6) Constipation: Continue MiraLAX as needed for constipation Present on Admission?: Yes (7) GERD (gastroesophageal reflux disease): Started famotidine 20 mg IV twice daily. Present on Admission?: Yes History of Present Illness Chief Complaint: Chest pain, nausea/vomiting, shortness of breath Primary Care Provider: Heather Perez MD The patient is a 53 years old male with past medical history of alcoholism, GERD, prolonged QT interval, constipation, elevated serum creatinine, thrombocytopenia, spinal compression fracture, osteoporosis who presents to the emergency room for evaluation of intermittent breathing difficulty and rib pain following an episode of a fall 8 hours ago. Prior to this episode patient had to large drinks of vodka according to patient 2 glasses or little bit more than that. The patient states that he fell in the [employer] parking lot earlier and now he has upper back pain radiating to his chest, headache and difficulty breathing due to pain. Patient reports that he did not hit his head and he was able to get up and walk home. The patient notes that the pain has became progressively worse so he came to the emergency room. Patient said that he has dry heaves and he vomited only once which was this morning. Patient reports no blood in there. Patient denies blood in the stool and blood in urine or hematuria. Patient denies fever, chills, abdominal pain, frequency, urgency. Patient started to already be shaky and he appears to be in alcoholic withdrawal. Patient reports drinking a lot at home. He took 800 mg ibuprofen for the pain following the fall but this did not help his symptoms. EKG reviewed shows sinus tachycardia, left atrial enlargement, no changes from the previous EKG. Labs are reviewed: WBC is 8.12, hemoglobin 14.4, hematocrit 42.5, platelets 137, PT 10.6, INR 1, chemistry: Sodium 138, potassium 3.5, chloride 102, anion gap 12, BUN 18, creatinine 0.81, GFR 102.2, calcium 8.7, magnesium 1.7, total bili 0.8, AST 47, ALT 40, alkaline phosphatase 72, troponin 0.015, total protein 7.8, albumin 3.8, globulin 4, lipase 115, TSH 2.66. Chest x-ray is shows multiple acute left-sided rib fractures. Small left pleural effusion/hemothorax. No pneumothorax. Mild left basilar opacity which favors atelectasis. X-rays of thoracic spine shows no acute thoracic spine fracture or subluxation. Numerous old thoracic and upper lumbar spine compression fractures. Decision was made to admit patient to PCU on telemetry for left- sided multiple rib fractures pain control, alcoholic withdrawal. Allergies Allergy/AdvReac Type Severity Reaction Status Date / Time No Known Allergies Allergy Verified 07/06/19 13:20 Home Medications Home Medications Medication Instructions Recorded Confirmed Type multivitamin-iron (hematinic) 1 tab PO QAM 03/11/19 07/06/19 History cholecalciferol (vitamin D3) 50 2,000 units PO QAM #30 cap 03/15/19 07/06/19 History mcg (2,000 unit) capsule vitamin B complex 1 tab PO QAM 05/08/19 07/06/19 History chlordiazepoxide HCl See Rx Instructions .ROUTE .COMPLEX 07/06/19 07/06/19 History ibuprofen 800 mg PO Q6H PRN 07/06/19 07/06/19 History thiamine HCl (vitamin B1) [Vitamin 100 mg PO QAM 07/06/19 07/06/19 History B-1] Past Med/Surg History Medical History Anxiety Compression fracture of body of thoracic vertebra (Resolved) Depression GERD (gastroesophageal reflux disease) History of gout History of seizure Hypokalemia (Resolved) Hypomagnesemia (Resolved) Prolonged QT interval (Resolved) Pulmonary embolism (Resolved) 2011 Surgical History History of ankle surgery History of shoulder surgery Family History Grandmother (Maternal) Non-Hodgkin lymphoma Other Alcoholism in family Cancer Diabetes Social History Preferred Language: Spanish Communication Ability: Effective Visual Impairment: No Limitations Corporate Banking Officer Required: No Beliefs That Will Affect Care: None marital status: Single Current Living Situation: Other Current Living Situation Comment: lives with a friend current occupational status: unemployed 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 Feels Safe at Home: Yes Smoking Status: Never smoker Second Hand Exposure: No ; Hx Alcohol Use: Yes Alcohol type: beer Hx Substance Use: No Review of Systems Review of Systems: All systems reviewed & are unremarkable except as noted in HPI & below Physical Exam Constitutional: WD/WN, vitals as above well developed and + ill appearing Eyes: PERRL, conjunctivae normal, anicteric sclerae ENMT: external ear and nose normal, oropharynx normal Neck: trachea midline, no thyromegaly Respiratory: + respiratory distress, + labored breathing and + uses accessory muscles Auscultation: + wheezes Cardiovascular: Rate/Rhythm: regular rate, regular rhythm and + tachycardic Heart Sounds: normal S1 and normal S2 Gastrointestinal (Abdomen): normal bowel sounds, soft, nontender, no hepatosplenomegaly Skin: normal turgor Neurologic: patellar DTR's 2+ bilat, sensation intact Psychiatric: A+Ox3, euthymic affect Lymphatic: no cervical or axillary lymphadenopathy Results & Data Vital Signs (Past 12 Hours) Vital Signs Temp Pulse Pulse Resp BP BP Pulse Ox 07/06/19 13:02 95 H 18 146/85 H 95 07/06/19 12:27 95 07/06/19 11:56 36.6 C 89 19 147/86 H 98 Code Status & VTE Plan Code Status Full code VTE Prophylaxis Plan VTE Prophylaxis will be ordered: Yes PG Care Time/CCT Total # of Minutes Spent Total Time Spent with Patient: Total time spent is greater than 50% in coordination of care (as documented) at patient's floor/unit and/or counseling patient: Coding Level of Care Code 52112 Initial Inpt Care Lvl 3 Diagnoses Chest pain R07.9 Chest pain type: unspecified Ambulatory dysfunction R26.2 Multiple fractures of ribs of left side S22.42XA Encounter type: initial encounter Fracture type: closed Hypomagnesemia E83.42 Alcohol abuse F10.10 Constipation K59.00 GERD (gastroesophageal reflux disease) K21.9 (1) Chest pain Chest pain type: unspecified Qualified Code(s): R07.9 - Chest pain, unspecified (2) Multiple fractures of ribs of left side Encounter type: initial encounter Fracture type: closed Qualified Code(s): S22.42XA - Multiple fractures of ribs, left side, initial encounter for closed fracture
[2019-07-06] MEDS ORDERED: ATIVAN IV ALCOHOL WITHDRAWL IV STA (14:09)
[2019-07-06] MEDS ORDERED: LORAZEPAM 3MG IV ACTIVE PROTOCOL IV PRN (14:30)
[2019-07-06] MEDS ORDERED: LORAZEPAM 1MG IV AT RISK PROTOCOL IV PRN (14:30)
[2019-07-06] MEDS: LORAZEPAM 1MG IV ACTIVE PROTOCOL IV PRN (14:33)
[2019-07-06] MEDS ORDERED: chlordiazePOXIDE ALCOHOL WITHDRAWL 50MG PO STA (15:20)
[2019-07-06] MEDS ORDERED: POLYETHYLENE (MIRALAX) 17 GM PACK PO PRN (15:20)
[2019-07-06] MEDS ORDERED: MAGNESIUM HYDROXIDE SUSP 30 ML UDC PO PRN (15:20)
[2019-07-06] MEDS ORDERED: ONDANSETRON INJ 2 MG/ML 2 ML VIAL IV PRN (15:20)
[2019-07-06] MEDS ORDERED: NITROGLYCERIN SL 0.4 MG/TAB TAB SL PRN (15:20)
[2019-07-06] MEDS ORDERED: ACETAMINOPHEN 325 MG TAB PO PRN (15:20)
[2019-07-06] MEDS ORDERED: PROMETHAZINE HCL 25 MG in SODIUM CHLORIDE 0.9% 50 ML IV PRN (15:20)
[2019-07-06] MEDS ORDERED: ALUMINUM/MAGNESIUM SUSP 30 ML UDC PO PRN (15:20)
[2019-07-06] MEDS ORDERED: chlordiazePOXIDE HCl 25 MG CAP PO SCH (16:00)
[2019-07-06 16:03] LABS: NT Pro B Type Natriuretic Pept 76 pg/ml (0-900); Troponin I < 0.015 ng/ml (0-0.045)
[2019-07-06] MEDS: FOLIC ACID 1 MG in SYRINGE 9.8 ML IV SCH (16:15)
[2019-07-06] MEDS: CEROVITE ADV FORMULA TAB PO SCH (16:15)
[2019-07-06] MEDS: CHLORDIAZEPOXIDE 50MG STARTING DOSE PO SCH ×2 (16:17→21:00)
[2019-07-06] MEDS: NSS + 20MEQ KCL 20 MEQ/1,000 ML BAG IV SCH (16:26)
[2019-07-06] MEDS ORDERED: MAGNESIUM SULFATE / D5W 1 GM/100 ML BAG IV ONE (16:30)
[2019-07-06] MEDS: THIAMINE HCL 100 MG TAB PO SCH (16:32)
[2019-07-06] MEDS: VITAMIN B COMPLEX TAB PO SCH (16:32)
[2019-07-06] MEDS: ASPIRIN 81 MG ECTAB PO SCH (16:32)
[2019-07-06] MEDS: NITROGLYCERIN 2% OINTMENT 30GM TUBE EXT SCH ×2 (18:07→23:46)
[2019-07-06] MEDS: OXYCODONE/ACETAMINOPHEN 5mg/325mg TAB PO PRN (18:51)
[2019-07-06 18:54] LABS: Amphetamines+Metham, Urine Neg (Neg); Barbiturates, Urine Neg (Neg); Benzodiazepine, Urine Pos (Neg); Cocaine, Urine Neg (Neg); MDMA (Ecstacy), Urine Neg (Neg); Methadone, Urine Neg (Neg); Opiate, Urine Neg (Neg); Phencyclidine, Urine Neg (Neg)
--- NOTE | 2019-07-06 19:56 | Emergency Department Note ---
Entered by Komal Coreas acting as a scribe for Gianluca Ferrell History of Present Illness General Chief complaint: Rib Injury/Pain Stated complaint: rib pain Time Seen by Provider: 07/06/19 12:21 Source: patient History of Present Illness Provider complaint: Rib Injury/Pain Onset (ago): day(s) 1 Location: chest Severity: severe Maximum Pain Intensity: 9 Relieved By: + none Exacerbated By: + none The patient is a 53 year old male who presents to the Emergency Room with complaints of severe rib injury/pain that began yesterday. The patient was discharged this morning and returned to the ED because his rib pain was too much. The patient states that his pain is not relieved nor exacerbated by anything specific. The patient denies drinking any alcohol or falling after he was discharged this morning. Home Medications Home Medications Medication Instructions Recorded Confirmed Type multivitamin-iron (hematinic) 1 tab PO QAM 03/11/19 07/06/19 History cholecalciferol (vitamin D3) 50 2,000 units PO QAM #30 cap 03/15/19 07/06/19 History mcg (2,000 unit) capsule vitamin B complex 1 tab PO QAM 05/08/19 07/06/19 History chlordiazepoxide HCl See Rx Instructions .ROUTE .COMPLEX 07/06/19 07/06/19 History ibuprofen 800 mg PO Q6H PRN 07/06/19 07/06/19 History thiamine HCl (vitamin B1) [Vitamin 100 mg PO QAM 07/06/19 07/06/19 History B-1] Allergies Allergy/AdvReac Type Severity Reaction Status Date / Time No Known Allergies Allergy Verified 07/06/19 13:20 Past Med/Surg History Medical History Anxiety Compression fracture of body of thoracic vertebra (Resolved) Depression GERD (gastroesophageal reflux disease) History of gout History of seizure Hypokalemia (Resolved) Hypomagnesemia (Resolved) Prolonged QT interval (Resolved) Pulmonary embolism (Resolved) 2011 Surgical History History of ankle surgery History of shoulder surgery Family History Grandmother (Maternal) Non-Hodgkin lymphoma Other Alcoholism in family Cancer Diabetes Social History Preferred Language: Finnish Communication Ability: Effective Visual Impairment: No Limitations Head Concierge Required: No Beliefs That Will Affect Care: None marital status: Single Current Living Situation: Significant Other Current Living Situation Comment: apartment current occupational status: unemployed 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 and A total of 10 systems reviewed and were otherwise negative Physical Exam Vital Signs Vital Signs - 24 hr 07/06/19 11:56 07/06/19 12:27 07/06/19 13:02 Temperature 36.6 C Temperature Source Oral Pulse Rate 89 Pulse Rate [Apical] 95 H Pulse Rhythm Regular Pulse Strength Normal Respiratory Rate 19 18 Respiratory Effort / Characteristics Non-Labored Respiratory Depth Normal Blood Pressure 147/86 H Blood Pressure [Left Arm] 146/85 H Blood Pressure Mean 106 Blood Pressure Mean [Left Arm] 105 Pulse Oximetry 98 95 95 Oxygen Delivery Method Room Air Room Air Room Air Sepsis Recent Fever Within 48 Hours No Sepsis Action Taken by Nursing No Action Required GENERAL: He is oriented to person, place, and time. He appears well-developed and well-nourished. He does not appear distressed. HENT: Exam performed. - Head: Normocephalic and atraumatic. - Right Ear: External ear normal. No mastoid tenderness. - Left Ear: External ear normal. No mastoid tenderness. - Mouth/Throat: The oropharynx is clear and moist. No trismus in the jaw. No dental abscesses or uvula swelling. No oropharyngeal exudate or tonsillar abscesses. EYES: Conjunctivae and EOM are normal. Pupils are equal, round, and reactive to light. Right eye exhibits no discharge. Left eye exhibits no discharge. No scleral icterus. NECK: Normal range of motion. Neck supple. No JVD present. No spinous process tenderness present. No carotid bruit present. No rigidity. No tracheal deviation and normal range of motion present. No Brudzinski's sign and no Kernig's sign noted. CV: Normal rate, regular rhythm, normal heart sounds and intact distal pulses. There is no peripheral edema. Palpable radial pulses bue. PULM/CHEST: Effort normal and breath sounds normal. No respiratory distress. No stridor. He has no wheezes. He has no rales. - Chest Wall: Pain on palpation of left sided ribs. No crepitus bilaterally. ABD: The abdomen is soft. Bowel sounds are normal. He has no distension. No mass is present. There is no tenderness. There is no rebound, no guarding, no Luciano's sign and no tenderness at McBurney's point. Rovsig negative. MUSC/SKEL: Normal range of motion. There is no peripheral edema, tenderness or deformity. LYMPH: No cervical adenopathy. NEURO: He is alert and oriented to person, place, and time. He has normal strength. No cranial nerve deficit or sensory deficit. Coordination and gait normal. GCS eye subscore is 4. GCS verbal subscore is 5. GCS motor subscore is 6. Cerebellar tests wnl. SKIN: Skin is warm and dry. He is not diaphoretic. PSYCH: He has a normal mood and affect. Behavior is normal. Judgment and thought content normal. Course Course 1223: EMR reviewed. Patient has history of alcohol abuse and pancreatitis. The patient was seen in the ED last night and he was discharged this morning. Labs were done and were within normal limits. CT of the chest was read by [facility] overnight which showed fractures of the left 4th-8th ribs. No pneumothorax but trace hemothorax was noted. Past medical records reviewed. The patient was evaluated in room A12B. A complete history and physical exam was performed. 1250: Chest XRAY viewed by me showed no significant hemothorax. The patient will be given analgesics in the emergency department and admitted for pain control. I spoke with Dr. Vargas-Hospitalist about the patient's case and she will accept the patient for further evaluation. Administered Medications Aspirin (Ecotrin Ectab) 81 mg PO DAILY [facility] Stop: 08/05/19 15:19 Last Admin: 07/06/19 16:32 Dose: 81 mg Documented by: [id number] Chlordiazepoxide HCl (Librium) 50 mg PO 0600,1200,1600,2200 [facility]; Protocol Stop: 07/07/19 12:01 Last Admin: 07/06/19 16:17 Dose: 50 mg Documented by: [id number] Lorazepam (Ativan) 1 mg in 2 mls @ 2 mls/min IV Q1H PRN; Protocol PRN Reason: Symptoms of alcohol withdrawal Stop: 08/05/19 14:29 Last Admin: 07/06/19 14:33 Dose: 2 mls/min Documented by: [id number] Folic Acid 1 mg/ Syringe 10 mls @ 5 mls/min IV DAILY@0900 [facility] Stop: 08/05/19 15:59 Last Admin: 07/06/19 16:15 Dose: 5 mls/min Documented by: [id number] Potassium Chloride/Sodium Chloride (Normal Saline W/20 Meq Kcl) 20 meq in 1,000 mls @ 80 mls/hr IV .[id number] [facility] Stop: 08/05/19 16:29 Last Admin: 07/06/19 16:26 Dose: 80 mls/hr Documented by: [id number] Multivitamins/Minerals (Multivitamin W/ Minerals Tab) [facility] Stop: 08/05/19 15:19 Last Admin: 07/06/19 16:15 Dose: 1 tab Documented by: [id number] Nitroglycerin (Nitro-Bid 2%) 1 inch EXT Q6 [facility] Stop: 08/05/19 17:59 Last Admin: 07/06/19 18:07 Dose: 1 inch Documented by: [id number] Oxycodone/Acetaminophen (Percocet 5mg/325mg) 1 tab PO Q4H PRN PRN Reason: Pain Stop: 07/20/19 15:19 Last Admin: 07/06/19 18:51 Dose: 1 tab Documented by: [id number] Thiamine HCl (Vitamin B-1) [facility] Stop: 08/05/19 15:19 Last Admin: 07/06/19 16:32 Dose: 100 mg Documented by: [id number] Vitamin B Complex (Vitamin B Complex) 1 tab [facility] Stop: 08/05/19 15:19 Last Admin: 07/06/19 16:32 Dose: 1 tab Documented by: [id number] Discontinued Medications Chlordiazepoxide HCl (Chlordiazepoxide Alcohol Withdrawl 50mg) 1 ea PO NOW STA; Protocol Stop: 07/06/19 15:21 Last Admin: 07/06/19 16:18 Dose: Not Given Documented by: [id number] Lorazepam (Ativan) 1 mg in 2 mls @ 2 mls/min IV NOW STA Stop: 07/06/19 13:05 Last Admin: 07/06/19 13:13 Dose: 2 mls/min Documented by: [id number] Magnesium Sulfate/Dextrose (Magnesium Sulfate / D5w) 1 gm in 100 mls @ 100 mls/hr IV ONE ONE Stop: 07/06/19 17:29 Last Infusion: 07/06/19 17:30 Dose: 0 mls/hr Documented by: [id number] Admin: 07/06/19 16:26 Dose: 100 mls/hr Documented by: [id number] Ketorolac Tromethamine (Toradol) 15 mg IV NOW STA Stop: 07/06/19 12:48 Last Admin: 07/06/19 13:00 Dose: 15 mg Documented by: [id number] Miscellaneous (Ativan Iv Alcohol Withdrawl) 1 ea IV NOW STA; Protocol Stop: 07/06/19 14:10 Last Admin: 07/06/19 15:55 Dose: Not Given Documented by: [id number] Ondansetron HCl (Zofran) 4 mg IV NOW STA Stop: 07/06/19 13:05 Last Admin: 07/06/19 13:11 Dose: 4 mg Documented by: [id number] Medical Decision Making Medical Records Attestation: I reviewed the patient's medical records. Home Medications Current Medication List: was personally reviewed by me Imaging Data Radiologist's Impression: Radiology results as stated below per my review and the radiologist's interpretation: XR chest 1V portable CLINICAL HISTORY: Left-sided rib pain. COMPARISON STUDY: Chest radiograph and left rib series July 06, 2019. Chest CT July 06, 2019. FINDINGS: There is no pneumothorax. A small left pleural effusion/hemothorax is noted. Mild left basilar opacity favors atelectasis. Multiple acute left-sided rib fractures are better depicted on prior chest CT. Lung volumes are diminished. There is no evidence for pulmonary edema. IMPRESSION: 1. Redemonstration of multiple acute left-sided rib fractures. Small left pleural effusion/hemothorax. 2. No pneumothorax. 3. Mild left basilar opacity which favors atelectasis. ACT 112: Negative or not required by law. Electronically signed by: Akhil Russell M.D. 07/06/2019 12:54 PM Blood Pressure Blood Pressure Findings: Elevated blood pressure Blood Pressure Disposition: further management by hospitalist [facility] Narrative 1223: EMR reviewed. Patient has history of alcohol abuse and pancreatitis. The patient was seen in the ED last night and he was discharged this morning. Labs were done and were within normal limits. CT of the chest was read by [facility] overnight which showed fractures of the left 4th-8th ribs. No pneumothorax but trace hemothorax was noted. Past medical records reviewed. The patient was evaluated in room A12B. A complete history and physical exam was performed. 1250: Chest XRAY viewed by me showed no significant hemothorax. The patient will be given analgesics in the emergency department and admitted for pain control. I spoke with Dr. Vargas-Hospitalist about the patient's case and she will accept the patient for further evaluation. Impression & Plan Multiple fractures of ribs of left side, Intractable pain Discharge Plan Visit Data *Final* Discharge Date/Time: 07/06/19 14:55 Chief Complaint: Rib Injury/Pain Stated Complaint: rib pain ED Provider: Gianluca Ferrell Discharge Problem: Multiple fractures of ribs of left side, Intractable pain Patient Disposition: Admitted As Inpatient Discharge Instructions Interventions: ED Discharge Assessment Last Done: 07/06/19 14:55 Discharge Problem: Multiple fractures of ribs of left side Qualifiers: Encounter type: initial encounter Fracture type: closed Qualified Code(s): S22.42XA - Multiple fractures of ribs, left side, initial encounter for closed fracture The scribe's documentation has been prepared under my direction and personally reviewed by me in its entirety. I confirm that the note above accurately reflects all work, treatment, procedures, and medical decision making performed by me.
[2019-07-06] MEDS ORDERED: FAMOTIDINE 20 MG in SYRINGE 3 ML IV SCH (21:00)
[2019-07-06] MEDS: MAGNESIUM OXIDE 400 MG TAB PO SCH (21:01)
[2019-07-07] MEDS: OXYCODONE/ACETAMINOPHEN 5mg/325mg TAB PO PRN ×6 (00:09→21:38)
[2019-07-07] MEDS: LORAZEPAM 1MG IV ACTIVE PROTOCOL IV PRN ×3 (02:30→19:57)
--- NOTE | 2019-07-07 06:12 | Electrocardiogram Report ---
Test Reason : Blood Pressure : / mmHG Vent. Rate : 080 BPM Atrial Rate : 080 BPM P-R Int : 154 ms QRS Dur : 086 ms QT Int : 420 ms P-R-T Axes : 048 033 034 degrees QTc Int : 484 ms Normal sinus rhythm Prolonged QT Abnormal ECG When compared with ECG of 06-JUL-2019 02:10, No significant change was found Confirmed by Drew Flores ([id number]) on 07/07/2019 6:12:02 AM Referred By: REFERRED SELF Confirmed By:Drew Flores
[2019-07-07 06:27] LABS: Hematocrit (blood only) 38.1 % (42-52); Hemoglobin 12.5 g/dL (14.0-18.0); Mean Corpuscular Hemoglobin 29.4 pg (25-34); Mean Corpuscular Hgb Conc 32.8 g/dL (32-36); Mean Corpuscular Volume 89.6 fL (80-100); RDW Coefficient of Variation 14.1 % (11.5-14.5); RDW Standard Deviation 46.1 fL (36.4-46.3); Red Blood Count 4.25 M/uL (4.7-6.1); White Blood Count 6.44 K/uL (4.8-10.8)
[2019-07-07 06:30] LABS: Mean Platelet Volume 10.1 fL (7.4-10.4); Platelet Count 84 K/uL (130-400)
[2019-07-07] MEDS: CHLORDIAZEPOXIDE 50MG STARTING DOSE PO SCH ×2 (06:43→12:29)
[2019-07-07] MEDS: NSS + 20MEQ KCL 20 MEQ/1,000 ML BAG IV SCH ×2 (06:43→19:45)
[2019-07-07] MEDS: NITROGLYCERIN 2% OINTMENT 30GM TUBE EXT SCH ×2 (06:44→12:23)
[2019-07-07 06:45] LABS: INR 1.1 (0.9-1.1); Partial Thromboplastin Ratio 1.1; Partial Thromboplastin Time 28.5 Seconds (21.0-31.0); Prothrombin Time 11.2 Seconds (9.0-12.0)
[2019-07-07 06:47] LABS: Basophils # (auto) 0.01 K/uL (0-0.2); Basophils % (auto) 0.2 %; Eosinophils # (auto) 0.06 K/uL (0-0.5); Eosinophils % (auto) 0.9 %; Immature Granulocytes # (auto) 0.01 K/uL (0.00-0.02); Immature Granulocytes % (auto) 0.2 %; Lymphocytes # (auto) 1.01 K/uL (1.2-3.4); Lymphocytes % (auto) 15.7 %; Monocytes # (auto) 0.44 K/uL (0.11-0.59); Monocytes % (auto) 6.8 %; Neutrophils # (auto) 4.91 K/uL (1.4-6.5); Neutrophils % (auto) 76.2 %
[2019-07-07 07:01] LABS: Albumin Globulin Ratio 0.9 (0.9-2); BUN Creatinine Ratio 19.1 (10-20); Bilirubin,Total 2.8 mg/dl (0.2-1); Calcium 8.3 mg/dl (8.5-10.1); Creatinine Clr Calc Pharmacy 128.1 ml/min; Est GFR (African American) 132.2; Est GFR (Non-African American) 114.1; Globulin 3.5 gm/dl (2.5-4.0); Magnesium 1.8 mg/dl (1.8-2.4); Potassium 3.4 mmol/L (3.5-5.1); Total Protein 6.5 gm/dl (6.4-8.2)
[2019-07-07 07:50] LABS: Estimated Average Glucose 88 mg/dl; Hemoglobin A1C 4.7 % (4.5-5.6)
[2019-07-07] MEDS: FAMOTIDINE 20 MG TAB PO SCH ×2 (08:45→19:46)
[2019-07-07] MEDS: VITAMIN B COMPLEX TAB PO SCH (08:46)
[2019-07-07] MEDS: MAGNESIUM OXIDE 400 MG TAB PO SCH ×2 (08:46→19:45)
[2019-07-07] MEDS: CHOLECALCIFEROL 1,000 UNITS 25 MCG TAB PO SCH (08:46)
[2019-07-07] MEDS: THIAMINE HCL 100 MG TAB PO SCH (08:46)
[2019-07-07] MEDS: ASPIRIN 81 MG ECTAB PO SCH (08:47)
[2019-07-07] MEDS: FOLIC ACID 1 MG in SYRINGE 9.8 ML IV SCH (08:47)
[2019-07-07] MEDS: CEROVITE ADV FORMULA TAB PO SCH (08:56)
[2019-07-07] MEDS ORDERED: LIDOCAINE 5% 1 PATCH TD SCH (12:30)
--- NOTE | 2019-07-07 13:25 | XRay Report ---
XR chest 1V portable CLINICAL HISTORY: 53 years-old Male presenting with hemothorax. TECHNIQUE: Portable upright AP view of the chest was obtained. COMPARISON: 07/06/2019. FINDINGS: Cardiomediastinal silhouette normal. Minimal left basilar opacities. Small left pleural effusion and/ or pleural thickening. No pneumothorax. Left rib fractures may be present. Degenerative changes of th e thoracic spine. Degenerative changes of the glenohumeral joints. Upper abdomen normal. IMPRESSION: 1. Small left pleural effusion and/or pleural thickening with associated left basilar atelectasis. 2. Left rib fractures. 3. No pneumothorax. ACT 112: Negative or not required by law. Electronically signed by: Ben Garcia M.D. 07/07/2019 1:24 PM
[2019-07-07] MEDS ORDERED: CHLORDIAZEPOXIDE 50MG 2ND DOSE PO SCH (20:00)
[2019-07-07] MEDS ORDERED: KETOROLAC 30 MG/ML VIAL IV PRN (23:53)
--- NOTE | 2019-07-07 23:53 | Hospitalist Progress Note ---
Date of Service July 07, 2019 Assessment & Plan (1) Fall: Fall on romero this morning. No injuries on exam post fall. Did not hit head. Unfortunately chair alarm was not on. PT as below for ambulatory dysfunction. Likely combination of opiates and benzodiazepines contributing and will certainly not discharge with both. Therefore plan to wean off opaites. (2) Alcohol withdrawal: Given history of seizures and wish of patient to stop drinking will continue on librium taper with Aitvan PRN. (3) Chest pain: secondary to rib pain. Trial lidocaine patch. Toradol PRN. Acetaminophen JENN. Oxycodone only if toradol ineffective. (4) Ambulatory dysfunction: Patient has frequent falls likely due to alcohol intoxication. Less suspicion for Wernicke's although may entertain this diagnosis depending on patient clinical course. Continue PT/OT. (5) Multiple fractures of ribs of left side: Patient has nondisplaced fractures of the ribs Continue pain management and monitoring Supplemental oxygen to peak keep oxygenation above 92% Incentive spirometry as tolerated (6) Hypomagnesemia: Magnesium is replenished with 1 g of magnesium IV Continue with magnesium oxide 400 mg twice daily Continue monitoring magnesium (7) Alcohol abuse: Patient was directed to stop drinking alcohol. Join alcoholic Anonymous Continue thiamine vitamin B complex and folic acid. (8) Constipation: Continue MiraLAX as needed for constipation (9) GERD (gastroesophageal reflux disease): Started famotidine 20 mg IV twice daily. (10) Discharge planning issues: PT to assess once weaning off opiates and benzodiazepines for alcohol withdrawal to assess for safety at home. Subjective Patient reports history of withdrawal seizures although these were never previously in hospital. He currently feels like he is going through withdrawal but also feeling very tired. Usually gets tremors and increased anxiety/agitation. No tremors currently but he has noticed agitation starting. Discussed willingness to quit alcohol and he reports not wantng to drink ever again although does not his girlfriend who he lives with drinks alcohol and he has no real plan other than will power in order to stop drinking. He has previous tried inpatient and outpatient rehab and [facility]. Rib pain appears improved today with percocets. Fell on romero this morning after chair alarm was not on. Patient tried to get up from chair to his bed and fell onto his knees. No pain in hips or knees. Did not hit his head. No nausea, vomting, headache following fall. No presynope or syncopal symptoms. Review of Systems Review of Systems: All systems reviewed & are unremarkable except as noted in HPI & below Physical Exam Constitutional: well developed and + diaphoretic (mild); + not well nourished and no acute distress Eyes: PERRL and EOM intact bilaterally; no nystagmus Neck: trachea midline Respiratory: normal respiratory effort; no respiratory distress, no labored breathing, no retractions and does not use accessory muscles Auscultation: + crackles (mild left sided); no diminished lung sounds, no rales and no rhonchi Cardiovascular: RRR, no murmur, no edema Chest (Breasts): Additional Comments: pain on palpation of left lower ribs. Gastrointestinal (Abdomen): normal bowel sounds, soft, nontender, no hepatosplenomegaly Neurologic: moves all extremities and awake; not confused Speech / Cognition: normal speech Motor/Sensory: no tremor, no pronator drift and no sensory deficit Psychiatric: Orientation: alert and oriented x 3 Affect: + flat affect Mood: + anxious mood Results & Data Vital Signs (Past 12 Hours) Vital Signs Temp Pulse Pulse Resp BP Pulse Ox 07/07/19 19:50 36.4 C L 89 14 121/84 95 07/07/19 19:07 37.1 C 94 H 23 126/87 96 07/07/19 15:30 36.9 C 88 17 130/79 96 07/07/19 15:00 88 07/07/19 11:51 36.9 C 103 H 19 122/70 95 PG Care Time/CCT Total # of Minutes Spent Total Time Spent with Patient: Total time spent is greater than 50% in coordination of care (as documented) at patient's floor/unit and/or counseling patient: Coding Level of Care Code 66799 Subseq Hosp Care Lvl 3 Diagnoses Fall W19.XXXA Encounter type: initial encounter Alcohol withdrawal F10.230 Complication of substance-induced condition: uncomplicated Chest pain R07.9 Chest pain type: unspecified Ambulatory dysfunction R26.2 Multiple fractures of ribs of left side S22.42XA Encounter type: initial encounter Fracture type: closed Hypomagnesemia E83.42 Alcohol abuse F10.10 Constipation K59.00 GERD (gastroesophageal reflux disease) K21.9 Discharge planning issues Z02.9 (1) Multiple fractures of ribs of left side Encounter type: initial encounter Fracture type: closed Qualified Code(s): S22.42XA - Multiple fractures of ribs, left side, initial encounter for closed fracture (2) Alcohol withdrawal Complication of substance-induced condition: uncomplicated Qualified Code(s): F10.230 - Alcohol dependence with withdrawal, uncomplicated (3) Chest pain Chest pain type: unspecified Qualified Code(s): R07.9 - Chest pain, unspecified (4) Fall Encounter type: initial encounter Qualified Code(s): W19.XXXA - Unspecified fall, initial encounter
[2019-07-08] MEDS: LORAZEPAM 1MG IV ACTIVE PROTOCOL IV PRN ×4 (00:25→17:20)
[2019-07-08] MEDS: LORAZEPAM 2MG IV ACTIVE PROTOCOL IV PRN ×3 (04:03→19:37)
[2019-07-08] MEDS: chlordiazePOXIDE HCl 25 MG CAP PO SCH ×3 (06:04→21:04)
[2019-07-08 06:47] LABS: Basophils # (auto) 0.01 K/uL (0-0.2); Basophils % (auto) 0.1 %; Eosinophils # (auto) 0.16 K/uL (0-0.5); Hematocrit (blood only) 38.7 % (42-52); Immature Granulocytes # (auto) 0.05 K/uL (0.00-0.02); Immature Granulocytes % (auto) 0.6 %; Lymphocytes # (auto) 1.29 K/uL (1.2-3.4); Lymphocytes % (auto) 16.3 %; Mean Corpuscular Hemoglobin 30.4 pg (25-34); Mean Corpuscular Hgb Conc 33.6 g/dL (32-36); Mean Corpuscular Volume 90.4 fL (80-100); Mean Platelet Volume 10.5 fL (7.4-10.4); Monocytes # (auto) 0.71 K/uL (0.11-0.59); Neutrophils # (auto) 5.69 K/uL (1.4-6.5); Platelet Count 100 K/uL (130-400); RDW Coefficient of Variation 14.1 % (11.5-14.5); RDW Standard Deviation 46.7 fL (36.4-46.3); Red Blood Count 4.28 M/uL (4.7-6.1); White Blood Count 7.91 K/uL (4.8-10.8)
[2019-07-08 07:27] LABS: Albumin Level 3.2 gm/dl (3.4-5.0); BUN Creatinine Ratio 8.5 (10-20); Calcium 8.8 mg/dl (8.5-10.1); Creatinine Clr Calc Pharmacy 108.1 ml/min; Est GFR (African American) 122.9; Est GFR (Non-African American) 106.1; Potassium 3.3 mmol/L (3.5-5.1)
[2019-07-08 07:35] LABS: Albumin Globulin Ratio 0.8 (0.9-2); Bilirubin,Total 1.2 mg/dl (0.2-1); Globulin 3.9 gm/dl (2.5-4.0); Total Protein 7.1 gm/dl (6.4-8.2)
[2019-07-08] MEDS: NSS + 20MEQ KCL 20 MEQ/1,000 ML BAG IV SCH (07:49)
[2019-07-08] MEDS: CHOLECALCIFEROL 1,000 UNITS 25 MCG TAB PO SCH (07:49)
[2019-07-08] MEDS: ASPIRIN 81 MG ECTAB PO SCH (07:49)
[2019-07-08] MEDS: MAGNESIUM OXIDE 400 MG TAB PO SCH ×2 (07:49→20:59)
[2019-07-08] MEDS: THIAMINE HCL 100 MG TAB PO SCH (07:49)
[2019-07-08] MEDS: FAMOTIDINE 20 MG TAB PO SCH ×2 (07:49→20:59)
[2019-07-08] MEDS: CEROVITE ADV FORMULA TAB PO SCH (07:50)
[2019-07-08] MEDS: VITAMIN B COMPLEX TAB PO SCH (07:50)
[2019-07-08] MEDS: OXYCODONE HCL IR 5 MG TAB (IMMEDIATE RELEASE) PO PRN (07:52)
[2019-07-08] MEDS: ACETAMINOPHEN 500 MG TAB PO SCH ×2 (07:53→20:59)
[2019-07-08] MEDS ORDERED: POTASSIUM CHLORIDE 20 MEQ TABCR PO STA (07:55)
[2019-07-08] MEDS ORDERED: ACETAMINOPHEN 500 MG TAB PO SCH (09:00)
[2019-07-08] MEDS: FOLIC ACID 1 MG in SYRINGE 9.8 ML IV SCH (09:25)
[2019-07-08] MEDS ORDERED: KETOROLAC 30 MG/ML VIAL IV PRN (09:52)
--- NOTE | 2019-07-08 21:43 | Hospitalist Progress Note ---
Date of Service July 08, 2019 Assessment & Plan (1) Alcohol withdrawal: Unclear if patient more confused this morning if going through alcohol withdrawal or from benzodiazepine use. When seen he does not appear to be having withdrawal symptoms other than confusion. Since he was sleeping a lot yesterday I suspect we are over treating with benzodiazepines and his taper dose has been decreased. Since he continues to wish to quit alcohol on discharge will continue hospital admission for alcohol withdrawal. (2) Chest pain: Secondary to rib pain. Toradol PRN. Acetaminophen JENN. Oxycodone only if toradol ineffective. (3) Ambulatory dysfunction: Continue PT/OT. (4) Multiple fractures of ribs of left side: Incentive spirometry. Consolidation on CT noted although WBC stable and patient without fever/chills to suggests PNA at this stage but certainly at risk of this. (5) Constipation: Continue MiraLAX as needed for constipation (6) GERD (gastroesophageal reflux disease): Started famotidine 20 mg PO BID (7) Discharge planning issues: Plan to reasses ambulatory dysfunction once mentation improves with librium and oxycodone reduction. Subjective No acute events overnight although still requiring Ativan for what mainly appears to be agitation and trying to get out of bed. No tremors or agitation noted by patient this morning however he does appear more confused (although or ientated x3). Reports feeling very tired (Ativan given this morning). Rib pain under control with current medical regimen. Review of Systems Review of Systems: All systems reviewed & are unremarkable except as noted in HPI & below Physical Exam Constitutional: well developed; + not well nourished, no acute distress and not diaphoretic Eyes: PERRL and EOM intact bilaterally; no nystagmus Neck: trachea midline Respiratory: normal respiratory effort; no respiratory distress, no labored breathing, no retractions and does not use accessory muscles Auscultation: + crackles (mild left base); no diminished lung sounds, no rales and no rhonchi Cardiovascular: RRR, no murmur, no edema Gastrointestinal (Abdomen): normal bowel sounds, soft, nontender, no hepatosplenomegaly Musculoskeletal: Bilateral back, hip and knee examinations normal inspection, palpation without pain, normal ROM without pain. Skin: Seborrheic dermatitis present on forehead on eyebrows b/l Neurologic: moves all extremities and awake; not confused Speech / Cognition: normal speech Motor/Sensory: no tremor, no pronator drift and no sensory deficit Psychiatric: Orientation: alert and oriented x 3 Affect: + flat affect Mood: + anxious mood Results & Data Vital Signs (Past 12 Hours) Vital Signs Temp Pulse Pulse Resp BP Pulse Ox 07/08/19 20:56 36.6 C 89 143/97 H 07/08/19 19:32 36.6 C 74 20 122/86 07/08/19 16:37 85 07/08/19 14:49 36.6 C 83 16 118/83 96 07/08/19 10:04 37.0 C 108 H 16 150/95 H 96 PG Care Time/CCT Total # of Minutes Spent Total Time Spent with Patient: Total time spent is greater than 50% in coordination of care (as documented) at patient's floor/unit and/or counseling patient: Coding Level of Care Code 65006 Subseq Hosp Care Lvl 2 Diagnoses Alcohol withdrawal F10.230 Complication of substance-induced condition: uncomplicated Chest pain R07.9 Chest pain type: unspecified Ambulatory dysfunction R26.2 Multiple fractures of ribs of left side S22.42XA Encounter type: initial encounter Fracture type: closed Constipation K59.00 Constipation type: unspecified constipation type GERD (gastroesophageal reflux disease) K21.9 Esophagitis presence: without esophagitis Discharge planning issues Z02.9 (1) Multiple fractures of ribs of left side Encounter type: initial encounter Fracture type: closed Qualified Code(s): S22.42XA - Multiple fractures of ribs, left side, initial encounter for closed fracture (2) Alcohol withdrawal Complication of substance-induced condition: uncomplicated Qualified Code(s): F10.230 - Alcohol dependence with withdrawal, uncomplicated (3) GERD (gastroesophageal reflux disease) Esophagitis presence: without esophagitis Qualified Code(s): K21.9 - Gastro- esophageal reflux disease without esophagitis (4) Chest pain Chest pain type: unspecified Qualified Code(s): R07.9 - Chest pain, unspecified (5) Constipation Constipation type: unspecified constipation type Qualified Code(s): K59.00 - Constipation, unspecified
[2019-07-08] MEDS ORDERED: CHLORDIAZEPOXIDE 25MG 3RD DOSE PO SCH (22:00)
[2019-07-08 23:00] LABS: 7-Aminoclonaz, Confirm NEGATIVE ng/mL (<25); Hydro-Alp Ur, GC/MS NEGATIVE ng/mL (<25); Hydroxyethylflurazepam, Conf NEGATIVE ng/mL (<50); Hydroxytriazolam NEGATIVE ng/mL (<50); Lorazepam, Ur GC/MS 823 ng/mL (<50); Nordiazepam, Confirm NEGATIVE ng/mL (<50); Oxazepam Ur, GC/MS NEGATIVE ng/mL (<50); Temazepam, Confirm NEGATIVE ng/mL (<50)
[2019-07-09] MEDS: OXYCODONE HCL IR 5 MG TAB (IMMEDIATE RELEASE) PO PRN ×3 (04:30→16:12)
[2019-07-09] MEDS: CEROVITE ADV FORMULA TAB PO SCH (07:21)
[2019-07-09] MEDS: VITAMIN B COMPLEX TAB PO SCH (07:21)
[2019-07-09] MEDS: ACETAMINOPHEN 500 MG TAB PO SCH ×2 (07:21→21:39)
[2019-07-09] MEDS: THIAMINE HCL 100 MG TAB PO SCH (07:21)
[2019-07-09] MEDS: CHOLECALCIFEROL 1,000 UNITS 25 MCG TAB PO SCH (07:21)
[2019-07-09] MEDS: FAMOTIDINE 20 MG TAB PO SCH ×2 (07:22→21:40)
[2019-07-09] MEDS: ASPIRIN 81 MG ECTAB PO SCH (07:22)
[2019-07-09] MEDS: MAGNESIUM OXIDE 400 MG TAB PO SCH ×2 (07:22→21:40)
[2019-07-09] MEDS ORDERED: LORazepam 1 MG TAB PO PRN (19:15)
[2019-07-09] MEDS: NAPROXEN 250 MG TAB PO SCH (21:42)
--- NOTE | 2019-07-09 23:42 | Hospitalist Progress Note ---
Date of Service July 09, 2019 Assessment & Plan (1) Alcohol withdrawal: Still requiring IV ativan yesterday per AWSS score although throughout the day he is generally fine and I suspect he just s at night. Patient on last day of librium taper today. Will reduce dose of PRN lorazepam to oral 1mg in addition. Vital signs stable and no withdrawal symptoms when seen. I suspect he isn't going through much alcohol withdrawal at present, although given history of seizures and PAWSS scale 5 - high risk; will continue on last day of librium taper. Continues to wish to quit alcohol on discharge. (2) Chest pain: Secondary to rib fractures. Appears worse today. Not yet had any toradol when seen. Will give JENN naproxen as he has been choosing to get oxycodone instead of NSAIDs which is delaying his recovery. Continue acetaminophen JENN. Lidocaine patch ineffective therefore discontinued. (3) Multiple fractures of ribs of left side: Incentive spirometry Concern for consolidation on CT but no fever, hypoxia, cough, WBC. (4) Ambulatory dysfunction: Continue PT/OT to reassess to determine safety to return home. No ophthalmoplegia or altered mental state to suggest Wernicke's encephalopathy. (5) Constipation: Continue MiraLAX as needed for constipation (6) GERD (gastroesophageal reflux disease): Started famotidine 20 mg PO BID (7) Seborrheic dermatitis: Facial. Clotrimazole cream prescribed. If starts to itch will start topical steroid. (8) Discharge planning issues: Due to continued stay and lack of mobility will start lovenox 40mg SQ daily. Continued inpatient stay due to rib fracture pain and ambulatory dysfunction (need to assess safety for discharge home). Subjective Patient reports increase in his rib fracture pain today. No Toradol given yet. Oxycodone made him more drowsy and confused previously and certainly would not discharge him on this. Continues to express wish to quit alcohol on discharge. No tremors, agitation, climbing out of bed, headache, hallucinations, palpitations, abdominal pain, constipation or diarrhea. Review of Systems Review of Systems: All systems reviewed & are unremarkable except as noted in HPI & below Physical Exam Constitutional: well developed and + acute distress (rib fracture pain); + not well nourished and not diaphoretic Eyes: PERRL and EOM intact bilaterally; no nystagmus Neck: trachea midline Respiratory: normal respiratory effort; no respiratory distress, no labored breathing, no retractions and does not use accessory muscles Auscultation: + crackles (mild left sided); no diminished lung sounds, no rales and no rhonchi pain on palpation on left side of his chest Cardiovascular: RRR, no murmur, no edema Gastrointestinal (Abdomen): normal bowel sounds, soft, nontender, no hepatosplenomegaly Skin: seborrheic dermatitis on forehead, right blephritis Neurologic: PERRL, EOMI, accommodation nl, no face palsy, no dysarthria moves all extremities and awake; not confused Speech / Cognition: normal speech Motor/Sensory: no tremor, no pronator drift and no sensory deficit Results & Data Vital Signs (Past 12 Hours) Vital Signs Temp Pulse Resp BP Pulse Ox 07/09/19 15:56 36.4 C L 76 18 118/81 96 07/09/19 12:00 36.5 C 83 16 107/74 95 PG Care Time/CCT Total # of Minutes Spent Total Time Spent with Patient: Total time spent is greater than 50% in co ordination of care (as documented) at patient's floor/unit and/or counseling patient: Coding Level of Care Code 53641 Subseq Hosp Care Lvl 2 Diagnoses Alcohol withdrawal F10.230 Complication of substance-induced condition: uncomplicated Chest pain R07.9 Chest pain type: unspecified Multiple fractures of ribs of left side S22.42XA Encounter type: initial encounter Fracture type: closed Ambulatory dysfunction R26.2 Constipation K59.00 Constipation type: unspecified constipation type GERD (gastroesophageal reflux disease) K21.9 Esophagitis presence: without esophagitis Seborrheic dermatitis L21.9 Discharge planning issues Z02.9 (1) Multiple fractures of ribs of left side Encounter type: initial encounter Fracture type: closed Qualified Code(s): S22.42XA - Multiple fractures of ribs, left side, initial encounter for closed fracture (2) Alcohol withdrawal Complication of substance-induced condition: uncomplicated Qualified Code(s): F10.230 - Alcohol dependence with withdrawal, uncomplicated (3) GERD (gastroesophageal reflux disease) Esophagitis presence: without esophagitis Qualified Code(s): K21.9 - Gastro- esophageal reflux disease without esophagitis (4) Chest pain Chest pain type: unspecified Qualified Code(s): R07.9 - Chest pain, unspecified (5) Constipation Constipation type: unspecified constipation type Qualified Code(s): K59.00 - Constipation, unspecified
[2019-07-09] MEDS ORDERED: OXYCODONE HCL IR 5 MG TAB (IMMEDIATE RELEASE) PO STA (23:44)
[2019-07-10] MEDS ORDERED: CHLORDIAZEPOXIDE 10MG 4TH DOSE PO SCH
[2019-07-10] MEDS ORDERED: COUGH DROP (SUGAR FREE) LOZ 24 LOZ/1 BOX BUCCAL ONE (01:43)
[2019-07-10] MEDS: TRAMADOL HCL 50 MG TABLET PO PRN ×5 (03:00→23:59)
[2019-07-10 05:28] LABS: Basophils # (auto) 0.02 K/uL (0-0.2); Basophils % (auto) 0.3 %; Eosinophils # (auto) 0.11 K/uL (0-0.5); Eosinophils % (auto) 1.4 %; Hematocrit (blood only) 41.6 % (42-52); Immature Granulocytes # (auto) 0.06 K/uL (0.00-0.02); Immature Granulocytes % (auto) 0.8 %; Lymphocytes # (auto) 1.93 K/uL (1.2-3.4); Lymphocytes % (auto) 24.6 %; Mean Corpuscular Hemoglobin 30.3 pg (25-34); Mean Corpuscular Hgb Conc 33.7 g/dL (32-36); Mean Platelet Volume 10.2 fL (7.4-10.4); Monocytes # (auto) 0.97 K/uL (0.11-0.59); Monocytes % (auto) 12.4 %; Neutrophils # (auto) 4.75 K/uL (1.4-6.5); Neutrophils % (auto) 60.5 %; Platelet Count 126 K/uL (130-400); RDW Coefficient of Variation 14.3 % (11.5-14.5); RDW Standard Deviation 46.4 fL (36.4-46.3); Red Blood Count 4.62 M/uL (4.7-6.1); White Blood Count 7.84 K/uL (4.8-10.8)
[2019-07-10 06:06] LABS: BUN Creatinine Ratio 18.4 (10-20); Calcium 9.5 mg/dl (8.5-10.1); Creatinine Clr Calc Pharmacy 94.6 ml/min; Est GFR (African American) 116.7; Est GFR (Non-African American) 100.7; Potassium 3.7 mmol/L (3.5-5.1)
[2019-07-10 08:45] LABS: Albumin Level 3.5 gm/dl (3.4-5.0); Bilirubin Direct 0.1 mg/dl (0-0.2); Bilirubin,Total 0.9 mg/dl (0.2-1); Total Protein 7.5 gm/dl (6.4-8.2)
[2019-07-10] MEDS: ACETAMINOPHEN 500 MG TAB PO SCH ×2 (09:01→20:43)
[2019-07-10] MEDS: THIAMINE HCL 100 MG TAB PO SCH (09:01)
[2019-07-10] MEDS: CHOLECALCIFEROL 1,000 UNITS 25 MCG TAB PO SCH (09:01)
[2019-07-10] MEDS: CEROVITE ADV FORMULA TAB PO SCH (09:01)
[2019-07-10] MEDS: NAPROXEN 250 MG TAB PO SCH ×2 (09:01→20:43)
[2019-07-10] MEDS: MAGNESIUM OXIDE 400 MG TAB PO SCH ×2 (09:01→20:43)
[2019-07-10] MEDS: VITAMIN B COMPLEX TAB PO SCH (09:01)
[2019-07-10] MEDS: CLOTRIMAZOLE 1% CR 15 GM TUBE EXT SCH ×2 (09:02→20:43)
[2019-07-10] MEDS: ENOXAPARIN INJ 40 MG/0.4 ML SYR SQ SCH (09:02)
[2019-07-10] MEDS: FAMOTIDINE 20 MG TAB PO SCH ×2 (09:02→20:43)
[2019-07-10] MEDS: ASPIRIN 81 MG ECTAB PO SCH (09:02)
--- NOTE | 2019-07-10 10:50 | Hospitalist Progress Note ---
Date of Service July 10, 2019 Assessment & Plan (1) Alcohol withdrawal: * No ativan required over the past 24 hours -- had required IV ativan up until yesterday per AWSS score, although throughout the day he is generally fine and I suspect he just at night. Patient finished last day of librium taper. * VSS stable -- BP 118/81, HR 89bm, 36.8C, 95% on RA * Suspect he isn't going through much alcohol withdrawal at present -- after discussion, patient agreeable to receive outpatient resources and expressed wish to establish care with psychiatrist, but would not like to consider inpatient drug/alcohol treatment. States he is done with alcohol altogether. (2) Chest pain: * Secondary to rib fractures. Appears worse today-- tender to palpation. * Toradol prn -- improves pain from 6/10 to 4/10 * mention of a trace right PTX on CT Chest without any subsequent PTX on CXRs--> resolved * Will add on lidocaine patch, abd binder to see if that helps with rib pain * Scheduled naproxen, tylenol (3) Multiple fractures of ribs of left side: * Lidocaine patch, abd binder * Incentive spirometry * Concern for consolidation on CT but no fever, hypoxia, cough, WBC. Currently 95% on RA (4) Ambulatory dysfunction: * Continue PT/OT to reassess to determine safety to return home. * No ophthalmoplegia or altered mental state to suggest Wernicke's encephalopathy. * PT/OT with recommendations for return home -- if needed, patient would consider outpatient physical therapy (5) Constipation: * Continue MiraLAX as needed for constipation (6) GERD (gastroesophageal reflux disease): * Initiated famotidine 20 mg PO BID -- continue (7) Seborrheic dermatitis: * Facial. Clotrimazole cream prescribed. If starts to itch will start topical steroid. (8) Spinal compression fracture: * Multiple compression fractures noted in T and L-spine on imaging, likely secondary to falls and osteoporosis * recommend outpatient follow up for osteoporosis and cessation of EtOH use * of note with mod-severe canal narrowing at L2 level--> f/u with PCP as outpt (9) Pancreatic pseudocyst: * 3.6cm abutting the tail of pancreas, decreased in size from previous, with a h/o pancreatitis * follow up as outpt with GI, no evidence of pancreatitis at this time (10) Discharge planning issues: * lovenox 40mg SQ daily * Continued inpatient stay due to rib fracture pain and ambulatory dysfunction (need to assess safety for discharge home). Dispo: hopeful for discharge tomorrow, as patient states unsafe to return home today Supervising Physician Co-Signing Physician Notes PA Supervision Note: I did not personally see or examine the patient today, but I verified all flores points of JASMINA Casas's assessment and plan with the following exceptions/additions: None Subjective Patient evaluated this morning in bed. He states he is feeling tired today, still having persistent left sided rib pain, worse with movement. He states the pain is a 6/10 stabbing pain, decreased to 4/10 with tramadol, located under l eft breast/axilla. He states the pain woke him up around 4 this morning. He states his job requires being on his feet and a lot of bending over, which exacerbates his pain. He states he has had an unsteady balance for several weeks. He states he is willing to try a lidocaine patch and binder to see if those assist with his discomfort. He states he does not feel ready for discharge today secondary to pain. Denies any want for inpatient drug/alcohol rehab at this time. Agreeable to outpatient resources to get set up with a psychiatrist. Denies Review of Systems Review of Systems: All systems reviewed & are unremarkable except as noted in HPI & below Constitutional: + fatigue; no fever and no chills Eyes: no diplopia and no problem reported Ear, Nose, Mouth, Throat: no sore throat and no dysphagia Respiratory: no cough and no dyspnea Cardiovascular: no chest pain and no edema Gastrointestinal: no abdominal pain, no nausea, no vomiting, no constipation and no diarrhea/loose stools Genitourinary: no dysuria and no urinary frequency Musculoskeletal: rib pain Integumentary: no rash and no lesions Neurologic: + unsteadiness; no numbness and no paresthesia Psychiatric: no depression and no confusion Physical Exam Constitutional: WD/WN, vitals as above no acute distress Eyes: + anicteric sclerae and PERRL ENMT: Nose: no external nose abnormality Throat: uvula midline; no posterior oropharynx abnormality Neck: trachea midline, no thyromegaly Respiratory: normal respiratory effort, lungs clear to auscultation tender to palpation -- ribs, left sided Cardiovascular: RRR, no murmur, no edema Gastrointestinal (Abdomen): normal bowel sounds, soft, nontender, no hepatosplenomegaly Musculoskeletal: no cyanosis or clubbing, extremities motor strength 5/5 Skin: seborrheic dermatitis on forehead Neurologic: PERRL, EOMI, accommodation nl, no face palsy, no dysarthria Psychiatric: Orientation: alert and oriented x 3 Affect: + blunted affect Lymphatic: no cervical or axillary lymphadenopathy Results & Data Vital Signs (Past 12 Hours) Vital Signs Temp Pulse Resp BP Pulse Ox 07/10/19 07:31 36.8 C 89 18 118/81 95 07/09/19 22:54 36.5 C 85 16 137/90 97 Laboratory Results 07/10/19 07/10/19 07/10/19 Range/Units 05:05 05:05 05:05 WBC 7.84 (4.8-10.8) K/uL RBC 4.62 L (4.7-6.1) M/uL Hgb 14.0 (14.0-18.0) g/dL Hct 41.6 L (42-52) % MCV 90.0 (80-100) fL MCH 30.3 (25-34) pg MCHC 33.7 (32-36) g/dL RDW Std Deviation 46.4 H (36.4-46.3) fL RDW Coeff of Tj 14.3 (11.5-14.5) % Plt Count 126 L (130-400) K/uL MPV 10.2 (7.4-10.4) fL Immature Gran % (Auto) 0.8 % Neut % (Auto) 60.5 % Lymph % (Auto) 24.6 % Norton % (Auto) 12.4 % Eos % (Auto) 1.4 % Baso % (Auto) 0.3 % Immature Gran # (Auto) 0.06 H (0.00-0.02) K/uL Neut # (Auto) 4.75 (1.4-6.5) K/uL Lymph # (Auto) 1.93 (1.2-3.4) K/uL Norton # (Auto) 0.97 H (0.11-0.59) K/uL Eos # (Auto) 0.11 (0-0.5) K/uL Baso # (Auto) 0.02 (0-0.2) K/uL Sodium 137 (136-145) mmol/L Potassium 3.7 (3.5-5.1) mmol/L Chloride 105 (98-107) mmol/L Carbon Dioxide 25 (21-32) mmol/L Anion Gap 7.0 (3-11) BUN 15 D (7-18) mg/dl Creatinine 0.84 (0.6-1.4) mg/dl Est Cr Clr Drug Dosing 94.6 ml/min Est GFR ( Amer) 116.7 Est GFR (Non-Af Amer) 100.7 BUN/Creatinine Ratio 18.4 (10-20) Glucose 99 (70-99) mg/dl Calcium 9.5 (8.5-10.1) mg/dl Total Bilirubin 0.9 (0.2-1) mg/dl Direct Bilirubin 0.1 (0-0.2) mg/dl AST 23 (15-37) U/L ALT 26 (12-78) U/L Alkaline Phosphatase 66 (45-117) U/L Total Protein 7.5 (6.4-8.2) gm/dl Albumin 3.5 (3.4-5.0) gm/dl PG Care Time/CCT Total # of Minutes Spent Total Time Spent with Patient: Total time spent is greater than 50% in coordination of care (as documented) at patient's floor/unit and/or counseling patient: Coding Level of Care Code 11902 Subseq Hosp Care Lvl 2 Diagnoses Alcohol withdrawal F10.230 Complication of substance-induced condition: uncomplicated Chest pain R07.9 Chest pain type: unspecified Multiple fractures of ribs of left side S22.42XA Encounter type: initial encounter Fracture type: closed Ambulatory dysfunction R26.2 Constipation K59.00 Constipation type: unspecified constipation type GERD (gastroesophageal reflux disease) K21.9 Esophagitis presence: without esophagitis Seborrheic dermatitis L21.9 Spinal compression fracture M48.50XA Pancreatic pseudocyst K86.3 Discharge planning issues Z02.9 (1) Multiple fractures of ribs of left side Encounter type: initial encounter Fracture type: closed Qualified Code(s): S22.42XA - Multiple fractures of ribs, left side, initial encounter for closed fracture (2) Alcohol withdrawal Complication of substance-induced condition: uncomplicated Qualified Code(s): F10.230 - Alcohol dependence with withdrawal, uncomplicated (3) GERD (gastroesophageal reflux disease) Esophagitis presence: without esophagitis Qualified Code(s): K21.9 - Gastro- esophageal reflux disease without esophagitis (4) Chest pain Chest pain type: unspecified Qualified Code(s): R07.9 - Chest pain, unspecified (5) Constipation Constipation type: unspecified constipation type Qualified Code(s): K59.00 - Constipation, unspecified
[2019-07-10] MEDS: LIDOCAINE 5% 1 PATCH TD SCH (12:56)
[2019-07-11] MEDS: TRAMADOL HCL 50 MG TABLET PO PRN ×3 (06:32→16:28)
[2019-07-11 09:04] LABS: BUN Creatinine Ratio 22.9 (10-20); Calcium 9.4 mg/dl (8.5-10.1); Creatinine Clr Calc Pharmacy 94.6 ml/min; Est GFR (African American) 116.7; Est GFR (Non-African American) 100.7; Potassium 3.8 mmol/L (3.5-5.1)
[2019-07-11] MEDS: ACETAMINOPHEN 500 MG TAB PO SCH (09:09)
[2019-07-11] MEDS: NAPROXEN 250 MG TAB PO SCH (09:09)
[2019-07-11] MEDS: FAMOTIDINE 20 MG TAB PO SCH (09:09)
[2019-07-11] MEDS: CHOLECALCIFEROL 1,000 UNITS 25 MCG TAB PO SCH (09:09)
[2019-07-11] MEDS: VITAMIN B COMPLEX TAB PO SCH (09:09)
[2019-07-11] MEDS: ENOXAPARIN INJ 40 MG/0.4 ML SYR SQ SCH (09:10)
[2019-07-11] MEDS: LIDOCAINE 5% 1 PATCH TD SCH (09:10)
[2019-07-11] MEDS: THIAMINE HCL 100 MG TAB PO SCH (09:10)
[2019-07-11] MEDS: CLOTRIMAZOLE 1% CR 15 GM TUBE EXT SCH (09:10)
[2019-07-11] MEDS: MAGNESIUM OXIDE 400 MG TAB PO SCH (09:10)
[2019-07-11] MEDS: CEROVITE ADV FORMULA TAB PO SCH (09:11)
--- NOTE | 2019-07-11 12:23 | Discharge Summary ---
Date of Service July 11, 2019 Admission HPI Per Admitting Provider The patient is a 53 years old male with past medical history of alcoholism, GERD, prolonged QT interval, constipation, elevated serum creatinine, thrombocytopenia, spinal compression fracture, osteoporosis who presents to the emergency room for evaluation of intermittent breathing difficulty and rib pain following an episode of a fall 8 hours ago. Prior to this episode patient had to large drinks of vodka according to patient 2 glasses or little bit more than that. The patient states that he fell in the [employer] parking lot earlier and now he has upper back pain radiating to his chest, headache and difficulty breathing due to pain. Patient reports that he did not hit his head and he was able to get up and walk home. The patient notes that the pain has became progressively worse so he came to the emergency room. Patient said that he has dry heaves and he vomited only once which was this morning. Patient reports no blood in there. Patient denies blood in the stool and blood in urine or hematuria. Patient denies fever, chills, abdominal pain, frequency, urgency. Patient started to already be shaky and he appears to be in alcoholic withdrawal. Patient reports drinking a lot at home. He took 800 mg ibuprofen for the pain following the fall but this did not help his symptoms. EKG reviewed shows sinus tachycardia, left atrial enlargement, no changes from the previous EKG. Labs are reviewed: WBC is 8.12, hemoglobin 14.4, hematocrit 42.5, platelets 137, PT 10.6, INR 1, chemistry: Sodium 138, potassium 3.5, chloride 102, anion gap 12, BUN 18, creatinine 0.81, GFR 102.2, calcium 8.7, magnesium 1.7, total bili 0.8, AST 47, ALT 40, alkaline phosphatase 72, troponin 0.015, total protein 7.8, albumin 3.8, globulin 4, lipase 115, TSH 2.66. Chest x-ray is shows multiple acute left-sided rib fractures. Small left pleural effusion/hemothorax. No pneumothorax. Mild left basilar opacity which favors atelectasis. X-rays of thoracic spine shows no acute thoracic spine fracture or subluxation. Numerous old thoracic and upper lumbar spine compression fractures. Decision was made to admit patient to PCU on telemetry for left- sided multiple rib fractures pain control, alcoholic withdrawal. Admission Exam Per Admitting Provider Constitutional: WD/WN, vitals as above well developed and + ill appearing Eyes: PERRL, conjunctivae normal, anicteric sclerae ENMT: external ear and nose normal, oropharynx normal Neck: trachea midline, no thyromegaly Respiratory: + respiratory distress, + labored breathing and + uses accessory muscles Auscultation: + wheezes Cardiovascular: Rate/Rhythm: regular rate, regular rhythm and + tachycardic Heart Sounds: normal S1 and normal S2 Gastrointestinal (Abdomen): normal bowel sounds, soft, nontender, no hepatosplenomegaly Skin: normal turgor Neurologic: patellar DTR's 2+ bilat, sensation intact Psychiatric: A+Ox3, euthymic affect Lymphatic: no cervical or axillary lymphadenopathy Principal Diagnosis Falls, Rib Fracture, Alcohol Withdrawal Discharge Exam Constitutional WD/WN, vitals as above no acute distress Eyes + anicteric sclerae and PERRL ENMT Nose: no external nose abnormality Throat: uvula midline; no posterior oropharynx abnormality Neck trachea midline, no thyromegaly Respiratory normal respiratory effort, lungs clear to auscultation Cardiovascular RRR, no murmur, no edema Gastrointestinal (Abdomen) normal bowel sounds, soft, nontender, no hepatosplenomegaly Musculoskeletal no cyanosis or clubbing, extremities motor strength 5/5 Neurologic PERRL, EOMI, accommodation nl, no face palsy, no dysarthria Psychiatric Orientation: alert and oriented x 3 Affect: + blunted affect Lymphatic no cervical or axillary lymphadenopathy Discharge Data Allergies Allergy/AdvReac Type Severity Reaction Status Date / Time No Known Allergies Allergy Verified 07/06/19 13:20 Consultations 07/06/19 12:47 ED Decision to Admit Stat 07/06/19 15:20 Consult Case Management - Discharge Planning Routine Ordered Studies 07/[address] Chest CT Ribs w/ CXR Cervical Spine CT Head CT Pelvis KAREY 07/07 CXR 07/11 CXR Hospital Course (1) Alcohol withdrawal: * Required ativan x1. No ativan required over the past 24 hours -- had required IV ativan up until yesterday per AWSS score, although throughout the day he is generally fine. Patient finished last day of librium taper on 07/09 * VSS stable -- BP 123/83, 78bpm, 36.5C, 96% on RA * Suspected not much alcohol withdrawal during admission-- patient declined want for inpatient drug/alcohol rehab. Resources provided. Patient agreeable to look into establishing care with psychiatrist as outpatient -- to be referred at discretion of PCP (2) Multiple fractures of ribs of left side: * Lidocaine patch, abd binder * Incentive spirometry to prevent pulmonary toilet * Concern for consolidation on CT but no fever, hypoxia, cough, WBC. Likely just atelectasis * 96% on Room Air (3) Chest pain: * Secondary to rib fractures. * Toradol prn -- improved pain from 11/21 to 09/21 * mention of a trace right PTX on CT Chest without any subsequent PTX on CXRs--> resolved * Added on lidocaine patch, abd binder * Scheduled naproxen, tylenol (4) Ambulatory dysfunction: * Continued PT/OT to reassess to determine safety to return home. * No ophthalmoplegia or altered mental state to suggest Wernicke's encephalopathy. * PT/OT with recommendations for return home -- if needed, patient would consider outpatient physical therapy in the future (5) Constipation: * Continued MiraLAX as needed for constipation (6) GERD (gastroesophageal reflux disease): * Famotidine 20 mg PO BID (7) Seborrheic dermatitis: * Facial. Clotrimazole cream prescribed. (8) Spinal compression fracture: * Multiple compression fractures noted in T and L-spine on imaging, likely secondary to falls and osteoporosis * recommend outpatient follow up for osteoporosis and cessation of EtOH use * of note with mod-severe canal narrowing at L2 level-->no focal neuro deficits on exam--> f/u with PCP as outpt (9) Pancreatic pseudocyst: * 3.6cm abutting the tail of pancreas, decreased in size from previous, with a h/o pancreatitis * follow up as outpt with GI, no evidence of pancreatitis at this time (10) Discharge planning issues: * Lovenox 40mg SQ daily while inpatient Dispo: discharged home with short course of toradol, abd binder, follow up with PCP Total Time Total Time Spent Total Time Spent (In Minutes): 45 Discharge Plan Discharge Items Patient Disposition: Home - Self-Care Reason For Visit: ALCOHOL WITHDRAWAL, FREQUENT FALL, RIB FRACTURE, Discharge Diagnosis: Frequent Falls, Multiple Rib Fractures, Alcohol Withdrawal Condition on Discharge: Good Goals: You have been hospitalized for an acute medical problem. During your stay at [facility], we have made an effort to correct the problem that brought you to the hospital while keeping you as comfortable as possible. Medications were used to bring your condition under control and your discharge instructions will include directions for any medications you should take after leaving the hospital. Please make sure you see your Primary Care Provider as part of your follow up plan. Activity: Resume your previous activity Activity Comment: may use abdominal binder for comfort while working Non-emergency contact: Primary Care Provider Call non-emergency contact if: you have any medication questions, your symptoms worsen, your pain is not controlled, your pain is worsening, your pain is unusual for you, your pain is concerning for you, you have a fever and your temperature is above 101 Follow-up/Referrals: Heather Perez MD [Primary Care Provider] - 07/14/19 2:30 pm (Please, follow up with Dr. Perez on WednesdayJuly 14 at 2:30 pm. *If you need to change this appointment, call the office at [phone].) Diet: Heart Healthy Addtl Attending Provider Instructions: You are being provided a prescription for tramadol to use as needed for pain. You may also want to alternate with tylenol but be sure not to exceed 3,000mg in a day period of time (this is six 500mg tablets). You may also want to take Aleve two tablets (500mg) twice daily. You may also want to alternate heat/cold. You should avoid all ibuprofen products while drinking, as this increases your chances of bleeding. Please avoid all alcohol. You have been given a prescription for clotrimazole topical for the rash on your face. You may use this twice a day. You have been set up an appointment with your primary care doctor on Wednesday07/06/2019. You have been provided a work note while you have been hospitalized and should continue off work until seen by Dr. Perez. Please keep all follow up appointments. As discussed, you may want to ask your primary care doctor about a further work up regarding the narrowing of your spinal column and your vertebral compression deformities due to osteoporosis as an outpatient. It may be a good idea to get set up with outpatient physical therapy/become established with orthopedics in the future. You were also found to have a what appears to be a pseudocyst of your pancreas. This is likely due to chronic and recurrent pancreatitis, but you may want to make your PCP aware and have them keep an eye on it. Please return to the emergency department with any worsening shortness of breath, uncontrolled pain or for any symptoms that are concerning for you. Pending Studies at Discharge: No Stand-Alone Forms: [facility], [facility], Work/School Release (Inpt), Smoking Cessation Medications and DC Order Prescriptions: New naproxen 250 mg Tablet 500 mg PO BID Qty: 30 RF: 0 tramadol 50 mg Tablet 50 mg PO Q4H PRN (Reason: pain) Qty: 12 RF: 0 acetaminophen 500 mg Tablet 1,000 mg PO BID Qty: 30 RF: 0 clotrimazole 1 % Cream 1 applic EXT BID Qty: 12 RF: 0 Continued Central-Yohan tablet 1 tab PO QAM RF: 0 cholecalciferol (vitamin D3) 2,000 unit capsule 2,000 units PO QAM Qty: 30 RF: 0 vitamin B complex Tablet 1 tab PO QAM RF: 0 thiamine HCl (vitamin B1) [Vitamin B-1] 100 mg tablet 100 mg PO QAM RF: 0 Discontinued chlordiazepoxide HCl 5 mg capsule See Rx Instructions .ROUTE .COMPLEX RF: 0 ibuprofen 200 mg Tablet 800 mg PO Q6H PRN (Reason: Fever Or Pain) RF: 0 Discharge Orders: Discharge Order (Routine); Ordered 07/11/19 Ordered By: Dana Zhu/Other Patient Handouts: Alcoholism, Alcoholism Impact, Alcoholism Get Help, Addiction Alcohol Admission Data Admit Date/Time: 07/06/19 13:41 Attending Provider: Dana Ramos Admit Provider: Justice Vargas Primary Care Provider: Heather Perez Other Providers: Justice Vargas Other Interventions: Discharge Summary Assessment (RN) Last Done: 07/11/19 15:53 DC Date/Time DO NOT enter until pt leaves facility: 07/11/19 16:49 Supervising Physician Co-Signing Physician Notes PA Supervision Note: I personally saw and examined the patient. I verified all flores points and agree with JASMINA Casas with the following exceptions and/or additions: Pt reported pain was controlled in the ribs. No SOB. Eating well, no evidence of EtOH withdrawal. He tells me he wants to stay another night in the hospital because it's not convenient for him to go home today. He's not sure he can get a ride home, however after being pressed for options for public transport,etc., he then says he can get a ride. He denies any other concerns VSS NAD, AAOx3, no tremor RRR no mgr CTAB no wcr, slightly diminished at left base Abd +BS soft NT ND EXT: no edema or calf tenderness Neuro: CN 2-12 intact, moving all extremities well 54 yo male here with rib pain s/p fall with rib fractures, EtOH dependence- detoxed Stable for discharge Coding Level of Care Code D/C Day Management >30 mins Diagnoses Alcohol withdrawal F10.230 Complication of substance-induced condition: uncomplicated Multiple fractures of ribs of left side S22.42XA Encounter type: initial encounter Fracture type: closed Chest pain R07.9 Chest pain type: unspecified Ambulatory dysfunction R26.2 Constipation K59.00 Constipation type: unspecified constipation type GERD (gastroesophageal reflux disease) K21.9 Esophagitis presence: without esophagitis Seborrheic dermatitis L21.9 Spinal compression fracture M48.50XA Pancreatic pseudocyst K86.3 Discharge planning issues Z02.9
--- NOTE | 2019-07-11 13:37 | XRay Report ---
XR chest 2V PA/lateral CLINICAL HISTORY: follow up left sided rib pain/sob dyspnea COMPARISON STUDY: 07/07/2019 FINDINGS: Unchanged parenchymal infiltrate/atelectatic change left lung base. Small left pleural effu pauly. Left rib fractures are again noted. No evidence of pneumothorax. Right lung is considered clear. There are compression deformities of the thoracolumbar spine considered most likely chronic. IMPRESSION: Unchanged parenchymal infiltrative/atelectatic changes left base. 2. Unchanged left-sided rib fractures. 3. No evidence for pneumothorax. 4. Compression deformities of the low thoracolumbar spine ACT 112: Negative or not required by law. The above report was generated using voice recognition software. It may contain grammatical, syntax or spelling errors. Electronically signed by: Sherwin Morrell M.D. 07/11/2019 1:36 PM
== END 2019-07-11 16:49 | disposition home or self-care (01) ==
LOC: ED 12:07 → 1E 13:41 → SUATTDRO 13:41 → INTOOBSV 13:41 → 1E 14:55 → 2S 18:49 → 3W 07-09 11:33

== ENCOUNTER 2020-01-09 15:40 | Inpatient (IN) ==
[2020-01-09] MEDS ORDERED: DIPHTHERIA/TETANUS/PERTUSSIS 0.5 ML SYR/VIAL IM ONE (15:50)
[2020-01-09] MEDS ORDERED: LORazepam 1 MG/2 ML VIAL IV STA (15:50)
[2020-01-09] MEDS ORDERED: SODIUM CHLORIDE 0.9% 1000ML 1,000 ML IV ONE (15:50)
--- NOTE | 2020-01-09 15:59 | Emergency Department Note ---
Impression & Plan Syncope, Acute head trauma, Face lacerations, Closed fracture of proximal end of right humerus, Compression fracture of T1 vertebra, Elevated troponin, Alcohol abuse ED Provider Note NAME: RANCHO NESBITT AGE: 54 SEX: M : 1965 ARRIVES VIA: Ambulance INFORMANT: [Patient][ems] ED PROVIDER(S): [Dom Cheema MD] CHIEF COMPLAINT: Fall HISTORY OF PRESENT ILLNESS: The patient is a 54-year-old male who states that he was sitting and watching TV. Apparently, some workers at his home heard a thud and he was on the floor in front of the chair he had been sitting on. He was bleeding from the forehead. The patient was confused and initially, not very responsive. EMS arrived. On the way here, the patient became more awake and alert. The EMS crew feels he may have had a seizure although there was no witnessed seizure activity. The patient appeared postictal to them. Patient is unsure of his last tetanus immunization. He does drink alcohol daily and last had alcohol just over 12 hours ago. He drank about a sixpack of beer yesterday. The patient complains of 9/10 right shoulder pain since this fall. He has a minimal headache and some minimal mid back pain. No chest pain or shortness of breath. No abdominal pain. No lower extremity pain. The patient denies any neck pain although he is in a stiff cervical collar. The patient states he has had seizures before although it has been a long time, he is not on antiseizure medications. He carries a history of alcohol abuse. REVIEW OF SYSTEMS: See HPI for pertinent positives and negatives. A total of ten systems were reviewed and were otherwise negative. PMHx/PSHx: See Below SOCIAL HISTORY: See Below. PHYSICAL EXAM: GENERAL: Patient is in no acute distress. HEENT: Patient has a large bandage across the forehead. He has dried blood about his face from an apparent laceration. No obvious facial trauma. Pupils equal and reactive to light. NECK: No stridor, stiff collar in place. LUNGS: Clear to auscultation bilaterally, no wheeze, no rhonchi, breath sounds equal. Chest: Nontender to palpate. HEART: Mildly tachycardic, regular rhythm, no murmurs. ABDOMEN: Soft, nontender, bowel sounds positive, no hernias, no peritonitis. EXTREMITIES: No cyanosis or edema, pain with movement of the right shoulder, no obvious deformity. No evidence for right upper extremity neurovascular compromise. NEUROLOGIC: Oriented x 3, no acute motor or sensory deficits, no focal weakness. SKIN: No rash, no jaundice, no diaphoresis. Back: Could not be evaluated as the patient was initially assessed on a long backboard in the hallway as his room was not ready. DIFFERENTIAL DIAGNOSIS: Fracture, dislocation, contusion, intra-abdominal, pneumothorax, intrathoracic, intracranial, neurologic, compartment syndrome, rhabdomyolysis, seizure, dehydration, alcohol abuse, as well as other pathologies. EMERGENCY DEPARTMENT COURSE/PROCEDURES: ECG: Syncope was the indication. The ECG shows a normal sinus rhythm with a rate of 98. There is no ST elevation, no PVCs. The QTc is 472. Continuous Cardiac Monitoring: An order was placed for continuous cardiac monitoring. The monitor shows a rate of 108 with sinus tachycardia. Critical Care Note: I have personally spent greater than 52 minutes of critical care time in the direct management of this patient. This includes bedside care, interpretation of diagnostic studies, and testing, discussion with consultants, patient, and family members, and other required patient management activities. This 52 minutes is in excess of all separately billable procedures. MEDICAL DECISION MAKING: There is a mild leukocytosis, this could be consistent with infection or just the stress of his presentation. There is no anemia. Platelet count is low at 91. The patient has a history of thrombocytopenia. Renal panel shows a lower potassium at 3, no kidney failure. There was some liver enzyme elevation, this is likely consistent with his alcohol abuse. The total CK was elevated at 2400, this is consistent with some muscle breakdown/rhabdomyolysis. Alcohol level was undetectable. EKG shows sinus rhythm, no acute ischemic change. Cardiac enzyme testing x1 is slightly elevated. The troponin elevation could be secondary to mismatch or possibly dysrhythmia and/or cardiac ischemia. Chest x-ray does not show CHF or pneumonia. Brain CT shows no acute bleed or mass-effect. C-spine CT shows no acute fracture of the cervical spine although, there was a subtle compression fracture of T1. Thoracic and lumbar spine CTs show a possible T1 compression fracture and some old compression fractures. Right shoulder film shows a proximal right humerus fracture without dislocation of the humeral flako nt. The patient received IV saline. He was given IV saline with multivitamins, thiamine and folate. He received IV potassium. The patient was given IV Zofran. He was given IV Ativan and a second dose of IV Ativan. He received IV morphine for pain. He was given an Adacel booster IM. The patient's facial lacerations were dressed by my PA. The forehead laceration required repair, please see his note. The patient is in need of a hospital stay. The cause for this syncopal event is unclear although seizure is a concern, dysrhythmia is of course a concern. Alcohol withdrawal as a cause for this event is also possible. I spoke to the patient, I talked to case management. Hospitalization is warranted. The patient is feeling improved and resting comfortably at the present. No syncopal spells or seizure-like activity witnessed here in the ED. Of note, a facial CT was added to his work-up, this result is currently pending. The on-call hospitalist is aware of the pending test. Past Med/Surg History Medical History Anxiety Compression fracture of body of thoracic vertebra (Resolved) Depression GERD (gastroesophageal reflux disease) History of gout History of seizure Hypokalemia (Resolved) Hypomagnesemia (Resolved) Pancreatic pseudocyst CT CAP 07/06/2019 -3.8cm cystic lesion noted at tail of pancreas Prolonged QT interval (Resolved) Pulmonary embolism (Resolved) 2011 Surgical History History of ankle surgery ORIF of Trimalleolar fx 2018 at [facility] History of shoulder surgery Family History Grandmother (Maternal) Non-Hodgkin lymphoma Other Alcoholism in family Cancer Diabetes Social History Smoking Status: Never smoker Second Hand Exposure: No; Hx Alcohol Use: Yes Alcohol type: hard liquor Hx Substance Use: No Preferred Language: [place] Communication Ability: Effective Visual Impairment: No Limitations It Manager Required: No Beliefs That Will Affect Care: None marital status: Single Current Living Situation: Significant Other Current Living Situation Comment: apartment current occupational status: unemployed 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 Feels Safe at Home: Yes Allergies Allergies Allergy/AdvReac Type Severity Reaction Status Date / Time No Known Allergies Allergy Verified 01/09/20 16:59 Home Meds Home Medications Medication Instructions Recorded Confirmed No Known Home Medications 01/09/20 01/09/20 Results & Data (ED) Vital Signs Vital Signs - 24 hr 01/09/20 16:00 01/09/20 16:36 01/09/20 17:00 Temperature 37.6 C H Temperature Source Oral Pulse Rate 111 H 100 H 98 H Pulse Rate [Right Finger] Pulse Rate from SpO2 Sensor 100 H 97 H Respiratory Rate 18 20 24 Blood Pressure 148/93 H 158/86 H 158/89 H Blood Pressure [Left Arm] Blood Pressure Mean 111 107 113 Blood Pressure Mean [Left Arm] Blood Pressure Position [Left Arm] Pulse Oximetry 96 96 98 Oxygen Delivery Method Room Air Sepsis Recent Fever Within 48 Hours Yes Sepsis New/Unexplained Change in Mental Status No Sepsis Action Taken by Nursing No Action Required 01/09/20 17:30 01/09/20 18:00 01/09/20 18:30 Temperature Temperature Source Pulse Rate 99 H 105 H 107 H Pulse Rate [Right Finger] Pulse Rate from SpO2 Sensor 99 H 105 H 106 H Respiratory Rate 21 20 20 Blood Pressure 141/93 H 138/89 175/111 H Blood Pressure [Left Arm] Blood Pressure Mean 102 101 152 Blood Pressure Mean [Left Arm] Blood Pressure Position [Left Arm] Pulse Oximetry 97 95 98 Oxygen Delivery Method Room Air Sepsis Recent Fever Within 48 Hours Sepsis New/Unexplained Change in Mental Status Sepsis Action Taken by Nursing 01/09/20 19:00 01/09/20 19:30 01/09/20 20:00 Temperature Temperature Source Pulse Rate 99 H 108 H 104 H Pulse Rate [Right Finger] Pulse Rate from SpO2 Sensor 101 H 108 H Respiratory Rate 19 22 17 Blood Pressure 174/95 H 152/105 H 158/94 H Blood Pressure [Left Arm] Blood Pressure Mean 122 121 105 Blood Pressure Mean [Left Arm] Blood Pressure Position [Left Arm] Pulse Oximetry 97 98 Oxygen Delivery Method Room Air Sepsis Recent Fever Within 48 Hours Sepsis New/Unexplained Change in Mental Status Sepsis Action Taken by Nursing 01/09/20 20:30 01/09/20 20:55 01/09/20 21:00 Temperature Temperature Source Pulse Rate 102 H 99 H Pulse Rate [Right Finger] 90 Pulse Rate from SpO2 Sensor 98 H Respiratory Rate 21 16 18 Blood Pressure 156/96 H 170/99 H Blood Pressure [Left Arm] 143/82 H Blood Pressure Mean 131 127 Blood Pressure Mean [Left Arm] 102 Blood Pressure Position [Left Arm] Sitting Pulse Oximetry 97 97 Oxygen Delivery Method Room Air Sepsis Recent Fever Within 48 Hours Sepsis New/Unexplained Change in Mental Status Sepsis Action Taken by Nursing 01/09/20 21:30 Temperature Temperature Source Pulse Rate 97 H Pulse Rate [Right Finger] Pulse Rate from SpO2 Sensor 98 H Respiratory Rate 15 Blood Pressure 145/97 H Blood Pressure [Left Arm] Blood Pressure Mean 110 Blood Pressure Mean [Left Arm] Blood Pressure Position [Left Arm] Pulse Oximetry 97 Oxygen Delivery Method Room Air Sepsis Recent Fever Within 48 Hours Sepsis New/Unexplained Change in Mental Status Sepsis Action Taken by [facility] Medications Current Medication List: was personally reviewed by me Laboratory Data Attestation: I reviewed the patient's lab results. Result diagrams: 01/09/20 16:38 01/09/20 16:38 Lab Results 01/09/20 01/09/20 01/09/20 Range/Units 16:38 16:38 16:38 WBC 11.49 H (4.8-10.8) K/uL RBC 4.74 (4.7-6.1) M/uL Hgb 15.1 (14.0-18.0) g/dL Hct 43.6 (42-52) % MCV 92.0 (80-100) fL MCH 31.9 (25-34) pg MCHC 34.6 (32-36) g/dL RDW Std Deviation 45.4 (36.4-46.3) fL RDW Coeff of Tj 13.5 (11.5-14.5) % Plt Count 91 L (130-400) K/uL MPV 10.1 (7.4-10.4) fL Immature Gran % (Auto) 0.7 % Neut % (Auto) 82.4 % Lymph % (Auto) 4.9 % [place] % (Auto) 11.9 % Eos % (Auto) 0.0 % Baso % (Auto) 0.1 % Neut # (Auto) 9.47 H (1.4-6.5) K/uL Lymph # (Auto) 0.56 L (1.2-3.4) K/uL [place] # (Auto) 1.37 H (0.11-0.59) K/uL Eos # (Auto) 0.00 (0-0.5) K/uL Baso # (Auto) 0.01 (0-0.2) K/uL Immature Gran # (Auto) 0.08 H (0.00-0.02) K/uL Platelet Estimate Decreased L (Normal) Sodium 135 L (136-145) mmol/L Potassium 3.0 L (3.5-5.1) mmol/L Chloride 105 (98-107) mmol/L Carbon Dioxide 19 L (21-32) mmol/L Anion Gap 11.0 (3-11) BUN 13 (7-18) mg/dl Creatinine 0.89 (0.6-1.4) mg/dl Est Cr Clr Drug Dosing 93.4 ml/min Est GFR ( Amer) 113.1 Est GFR (Non-Af Amer) 97.6 BUN/Creatinine Ratio 14.7 (10-20) Glucose 139 H (70-99) mg/dl Calcium 8.4 L (8.5-10.1) mg/dl Magnesium 1.9 (1.8-2.4) mg/dl Total Bilirubin 3.0 H (0.2-1) mg/dl AST 142 H (15-37) U/L ALT 84 H (12-78) U/L Alkaline Phosphatase 67 (45-117) U/L Total Creatine Kinase 2494 H (39-308) U/L Troponin I 0.111 H* (0-0.045) ng/ml Total Protein 7.7 (6.4-8.2) gm/dl Albumin 3.6 (3.4-5.0) gm/dl Globulin 4.1 H (2.5-4.0) gm/dl Albumin/Globulin Ratio 0.9 (0.9-2) Ethyl Alcohol mg/dL < 3.0 (0-3) mg/dl Administered Medications Morphine Sulfate (Morphine Sulfate) 4 mg IV Q20M PRN PRN Reason: Pain Stop: 01/23/20 16:42 Last Admin: 01/09/20 20:33 Dose: 4 mg Documented by: [id number] Admin: 01/09/20 19:17 Dose: 4 mg Documented by: [id number] Admin: 01/09/20 17:54 Dose: 4 mg Documented by: [id number] Admin: 01/09/20 17:05 Dose: 4 mg Documented by: [id number] Discontinued Medications Diazepam (Valium) 10 mg PO NOW ONE Stop: 01/09/20 20:02 Last Admin: 01/09/20 21:38 Dose: 10 mg Documented by: [id number] Diphtheria/Pertussis/Tetanus Vacc (Adacel) 0.5 ml IM .ONCE ONE Stop: 01/09/20 15:51 Last Admin: 01/09/20 17:28 Dose: 0.5 ml Documented by: [id number] Sodium Chloride (Nss 1000ml) 1,000 mls @ 999 mls/hr IV .Q1H1M ONE Stop: 01/09/20 16:50 Last Infusion: 01/09/20 17:34 Dose: 0 mls/hr Documented by: [id number] Admin: 01/09/20 16:29 Dose: 999 mls/hr Documented by: [id number] Lorazepam (Ativan) 1 mg in 2 mls @ 2 mls/min IV NOW STA Stop: 01/09/20 15:51 Last Admin: 01/09/20 16:29 Dose: 2 mls/min Documented by: [id number] Multivitamins 10 ml/ Thiamine HCl 100 mg/ Folic Acid 1 mg/Sodium Chloride 1,011.2 mls @ 1,011.2 mls/hr IV .Q1H ONE Stop: 01/09/20 18:15 Last Infusion: 01/09/20 19:14 Dose: 0 mls/hr Documented by: [id number] Admin: 01/09/20 18:14 Dose: 1,011.2 mls/hr Documented by: [id number] Lorazepam (Ativan) 2 mg in 4 mls @ 4 mls/min IV NOW STA Stop: 01/09/20 17:42 Last Admin: 01/09/20 17:54 Dose: 4 mls/min Documented by: [id number] Potassium Chloride (K Michael / Wtr) 10 meq in 100 mls @ 100 mls/hr IV ONE ONE Stop: 01/09/20 19:46 Last Infusion: 01/09/20 20:12 Dose: 0 mls/hr Documented by: [id number] Admin: 01/09/20 19:12 Dose: 100 mls/hr Documented by: [id number] Potassium Chloride (K Michael / Wtr) 10 meq in 100 mls @ 100 mls/hr IV Q1H STA Stop: 01/09/20 21:02 Last Admin: 01/09/20 20:37 Dose: 100 mls/hr Documented by: [id number] Lidocaine/Epinephrine (Xylocaine/Epinephrine 1%) 20 ml INFIL NOW ONE Stop: 01/09/20 18:04 Last Admin: 01/09/20 18:14 Dose: 20 ml Documented by: [id number] Potassium Chloride (Klor-Con M10) 40 meq PO NOW STA Stop: 01/09/20 20:04 Last Admin: 01/09/20 20:31 Dose: 40 meq Documented by: [id number] Imaging Data Radiologist's Impression: CT cervical spine wo con CT DOSE: 529.82 mGycm CLINICAL HISTORY: 54 years-old Male with fall, pain. Acute head and neck injury status post fall COMPARISON: Head CT of same day, CT cervical and thoracic spine studies 07/06/2019. TECHNIQUE: Multiple axial CT images of the cervical spine were obtained without contrast. A dose lowering technique was utilized adhering to the principles of ALARA. FINDINGS: Lung apices are clear. No pneumothorax. There is no paravertebral edema. Unremarkable soft tissues. No high-grade central canal stenosis. Mild to moderate disc space narrowing at C4-C5. Mild multilevel disc space narrowing with a least mild spondylitic spurring and facet arthrosis. There is mild straightening of the normal cervical lordosis. There is no acute fracture or subluxation of the cervical spine. 25% anterior endplate compression deformity of T1 is new from comparison exam. Mild superior endplate compression at T2 and T3 are likely chronic. No retropulsion. Demineralized appearance of the bones. IMPRESSION: 1. No acute fracture or subluxation of the cervical spine. 2. 25% anterior and superior endplate compression deformity of T1 is new from 07/06/2019 and is likely acute. No retropulsion or significant central canal or foraminal narrowing. CT head/brain wo con CLINICAL HISTORY: 54 years-old Male with fall, pain. Acute head injury status post fall TECHNIQUE: Multiple axial CT images of the head were obtained without contrast. A dose lowering technique was utilized adhering to the principles of ALARA. CT DOSE: 1577.26 mGycm COMPARISON: CT cervical spine of same day, head CT 07/06/2019 FINDINGS: No acute intracranial hemorrhage, midline shift, intracranial mass, hydrocephalus, territorial ischemia or abnormal extra-axial collection. Mild involutional changes with a degree of ex vacuo ventriculomegaly redemonstrated. Mild patchy white matter hypodensities suggest probable chronic microvascular ischemic changes. The calvarium is intact. Partially imaged right paracentral lower forehead soft tissue hematoma, 1.2 x 3.9 cm. Mild left periorbital soft tissue swelling. Mild mucosal thickening of the left maxillary sinus. Metopic suture. Mastoid air c ells are generally clear. IMPRESSION: 1. No acute intracranial abnormality or calvarial fracture. 2. 3.9 cm forehead soft tissue hematoma is noted along with mild left periorbital soft tissue swelling. ADDENDUM Addendum: Also evident is a very subtle superior endplate T1 deformity. Although an acute fracture line is not visualized, this finding was not present in June 2019 and therefore could represent a mild acute superior endplate T1 compression fracture. Electronically signed by: Alfred Cardenas M.D. 01/09/2020 4:[address] thoracic spine wo con CT DOSE: 811.58 mGycm CLINICAL HISTORY: Thoracic spine pain status post trauma TECHNIQUE: Helical images were acquired in the transverse plane. Sagittal and coronal reformatted images were acquired. A dose lowering technique was utili kvngd adhering to the principles of ALARA. COMPARISON STUDY: June 2019 FINDINGS: There is no evidence for a paraspinal hematoma. There is no apical pneumothorax. There are old bilateral rib fractures. Again evident are multiple thoracic vertebral body compression fractures. These involve the T3, T4, T5, T6, T7, T9, and T12 vertebra. There is minimal retropulsion at the T6 and T7, T12 levels. These fractures are felt to be old. There is also an old superior endplate L1 compression fracture. IMPRESSION: 1. Multiple old thoracic vertebral body compression fractures, similar to the pr eceding study. 2. Old superior endplate L1 vertebral body compression fracture 3. Multiple old bilateral rib fractures 4. No acute thoracic spine fractures or subluxations identified. CT lumbar spine wo con HISTORY: 54 years-old Male fall, pain acute low back pain status post fall COMPARISON: CT thoracic spine of same day, CT abdomen pelvis 07/06/2019 TECHNIQUE: Multiple axial CT images of the lumbar spine were obtained without the use of IV contrast. A dose lowering technique was used consistent with the principals of BOAZ. FINDINGS: Demineralized appearance of the bones. Multilevel large Schmorl's nodes with remote compression deformities are redemonstrated at T12-L5. 6 mm retropulsion at L2 is unchanged. No definite acute fracture or subluxation. Moderate spondylitic spurring with moderate to severe multilevel facet arthrosis. Mild levoscoliosis. The imaged sacrum and iliac bones appear intact. Evaluation of the central canal and neuroforamina is better assessed by MRI. Multilevel central canal and foraminal narrowing is unchanged. Central canal stenosis at L1-L2 is at least mild to moderate. There is no paravertebral edema. There is mild nonspecific bilateral perinephric stranding. The paraspinal tissues are unremarkable. IMPRESSION: 1. No acute fracture or subluxation. 2. Remote Schmorl's nodes with compression deformities at T12-L5. 3. Demineralized appearance of the bones with multilevel degenerative changes as above. 4. Mild levoscoliosis. XR shoulder RT min 2V routine HISTORY: 54 years-old Male fall, pain acute post radical right shoulder pain COMPARISON: Chest radiograph of same day and also 07/11/2019 TECHNIQUE: 3 views of the right shoulder FINDINGS: There is an acute comminuted mildly displaced fracture of the proximal right humerus which involves the surgical neck, greater and lesser tuberosities and also likely the articular humeral head. No glenohumeral dislocation. Moderate soft tissue swelling surrounds the right shoulder. There is at least mild glenohumeral and AC joint osteoarthritis. IMPRESSION: Acute comminuted and mildly displaced fracture of the proximal right humerus. XR chest 1V portable HISTORY: 54 years-old Male fall, weakness acute post matter right shoulder pain COMPARISON: Chest radiograph 07/11/2019 TECHNIQUE: Portable AP view of the chest FINDINGS: Cardiac mediastinal and hilar silhouettes are within normal limits. Multiple remote left-sided rib fractures are redemonstrated with unchanged alignment. There is an acute comminuted fracture of the right proximal humerus with fracture involvement in the greater and lesser tuberosities and surgical neck. No dislocation. No pneumothorax, pleural effusion, overt pulmonary edema or airspace consolidation typical for pneumonia. Mild right hemidiaphragmatic elevation. IMPRESSION: 1. No acute cardiopulmonary abnormality. 2. Acute comminuted mildly displaced fracture of the right proximal humerus. Blood Pressure Blood Pressure Findings: Elevated blood pressure Blood Pressure Disposition: further management by hospitalist Head Trauma GCS Score: 15 Discharge Plan Visit Data Chief Complaint: Fall ED Provider: Dom Cheema Discharge Problem: Syncope, Acute head trauma, Face lacerations, Closed fracture of proximal end of right humerus, Compression fracture of T1 vertebra, Elevated troponin, Alco hol abuse Patient Disposition: Admitted As Inpatient Condition: Fair Forms Stand Alone Forms: [facility] Prescriptions Prescriptions: No Action No Known Home Medications RF: 0 Referrals Referrals: Heather Perez MD [Primary Care Provider] - Discharge Problem: Syncope Qualifiers: Syncope type: unspecified Qualified Code(s): R55 - Syncope and collapse Acute head trauma Qualifiers: Encounter type: initial encounter Qualified Code(s): S09.90XA - Unspecified injury of head, initial encounter Face lacerations Qualifiers: Encounter type: initial encounter Qualified Code(s): S01.81XA - Laceration without foreign body of other part of head, initial encounter Closed fracture of proximal end of right humerus Qualifiers: Encounter type: initial encounter Fracture morphology: other fracture Fracture alignment: displaced Qualified Code(s): S42.291A - Other displaced fracture of upper end of right humerus, initial encounter for closed fracture Compression fracture of T1 vertebra Qualifiers: Encounter type: initial encounter Qualified Code(s): S22.010A - Wedge compression fracture of first thoracic vertebra, initial encounter for closed fracture
--- NOTE | 2020-01-09 16:24 | CT Scan Report ---
CT head/brain wo con CLINICAL HISTORY: 54 years-old Male with fall, pain. Acute head injury status post fall TECHNIQUE: Multiple axial CT images of the head were obtained without contrast. A dose lowering tech nique was utilized adhering to the principles of ALARA. CT DOSE: 1577.26 mGycm COMPARISON: CT cervical spine of same day, head CT 07/06/2019 FINDINGS: No acute intracranial hemorrhage, midline shift, intracranial mass, hydrocephalus, territorial ischem ia or abnormal extra-axial collection. Mild involutional changes with a degree of ex vacuo ventriculo megaly redemonstrated. Mild patchy white matter hypodensities suggest probable chronic microvascular ischemic changes. The calvarium is intact. Partially imaged right paracentral lower forehead soft tissue hematoma, 1.2 x 3.9 cm. Mild left periorbital soft tissue swelling. Mild mucosal thickening of the left maxillary s inus. Metopic suture. Mastoid air cells are generally clear. IMPRESSION: 1. No acute intracranial abnormality or calvarial fracture. 2. 3.9 cm forehead soft tissue hematoma is noted along with mild left periorbital soft tissue swellin g. ACT 112: Negative or not required by law. The above report was generated using voice recognition software. It may contain grammatical, syntax o r spelling errors. Electronically signed by: Varghese Pierce M.D. 01/09/2020 4:23 PM
--- NOTE | 2020-01-09 16:31 | CT Scan Report ---
CT cervical spine wo con CT DOSE: 529.82 mGycm CLINICAL HISTORY: 54 years-old Male with fall, pain. Acute head and neck injury status post fall COMPARISON: Head CT of same day, CT cervical and thoracic spine studies 07/06/2019. TECHNIQUE: Multiple axial CT images of the cervical spine were obtained without contrast. A dose low ering technique was utilized adhering to the principles of ALARA. FINDINGS: Lung apices are clear. No pneumothorax. There is no paravertebral edema. Unremarkable soft tissues. N o high-grade central canal stenosis. Mild to moderate disc space narrowing at C4-C5. Mild multilevel disc space narrowing with a least mild spondylitic spurring and facet arthrosis. There is mild straig htening of the normal cervical lordosis. There is no acute fracture or subluxation of the cervical sp ine. 25% anterior endplate compression deformity of T1 is new from comparison exam. Mild superior end plate compression at T2 and T3 are likely chronic. No retropulsion. Demineralized appearance of the b ones. IMPRESSION: 1. No acute fracture or subluxation of the cervical spine. 2. 25% anterior and superior endplate compression deformity of T1 is new from 07/06/2019 and is likely acute. No retropulsion or significant central canal or foraminal narrowing. ACT 112: Negative or not required by law. The above report was generated using voice recognition software. It may contain grammatical, syntax o r spelling errors. Electronically signed by: Varghese Pierce M.D. 01/09/2020 4:30 PM
--- NOTE | 2020-01-09 16:38 | CT Scan Report ---
CT thoracic spine wo con CT DOSE: 811.58 mGycm CLINICAL HISTORY: Thoracic spine pain status post trauma TECHNIQUE: Helical images were acquired in the transverse plane. Sagittal and coronal reformatted oscar ges were acquired. A dose lowering technique was utilized adhering to the principles of ALARA. COMPARISON STUDY: June 2019 FINDINGS: There is no evidence for a paraspinal hematoma. There is no apical pneumothorax. There are old bilateral rib fractures. Again evident are multiple thoracic vertebral body compression fractures. These involve the T3, T4, T 5, T6, T7, T9, and T12 vertebra. There is minimal retropulsion at the T6 and T7, T12 levels. These fr actures are felt to be old. There is also an old superior endplate L1 compression fracture. IMPRESSION: 1. Multiple old thoracic vertebral body compression fractures, similar to the preceding study. 2. Old superior endplate L1 vertebral body compression fracture 3. Multiple old bilateral rib fractures 4. No acute thoracic spine fractures or subluxations identified. ACT 112: Negative or not required by law. Electronically signed by: Alfred Cardenas M.D. 01/09/2020 4:36 PM
--- NOTE | 2020-01-09 16:50 | CT Scan Report ---
CT lumbar spine wo con HISTORY: 54 years-old Male fall, pain acute low back pain status post fall COMPARISON: CT thoracic spine of same day, CT abdomen pelvis 07/06/2019 TECHNIQUE: Multiple axial CT images of the lumbar spine were obtained without the use of IV contrast. A dose lowering technique was used consistent with the principals of ALARA. FINDINGS: Demineralized appearance of the bones. Multilevel large Schmorl's nodes with remote compression defor mities are redemonstrated at T12-L5. 6 mm retropulsion at L2 is unchanged. No definite acute fracture or subluxation. Moderate spondylitic spurring with moderate to severe multilevel facet arthrosis. Mi ld levoscoliosis. The imaged sacrum and iliac bones appear intact. Evaluation of the central canal an d neuroforamina is better assessed by MRI. Multilevel central canal and foraminal narrowing is unchan ged. Central canal stenosis at L1-L2 is at least mild to moderate. There is no paravertebral edema. There is mild nonspecific bilateral perinephric stranding. The yanni justine tissues are unremarkable. IMPRESSION: 1. No acute fracture or subluxation. 2. Remote Schmorl's nodes with compression deformities at T12-L5. 3. Demineralized appearance of the bones with multilevel degenerative changes as above. 4. Mild levoscoliosis. ACT 112: Negative or not required by law. The above report was generated using voice recognition software. It may contain grammatical, syntax o r spelling errors. Electronically signed by: Varghese Pierce M.D. 01/09/2020 4:49 PM
[2020-01-09] MEDS: MoRPHine SULFATE 4 MG/ML 1 ML CARP\\VIAL IV PRN ×4 (17:05→20:33)
[2020-01-09 17:13] LABS: Albumin Level 3.6 gm/dl (3.4-5.0); BUN Creatinine Ratio 14.7 (10-20); Calcium 8.4 mg/dl (8.5-10.1); Creatinine Clr Calc Pharmacy 93.4 ml/min; Est GFR (African American) 113.1; Est GFR (Non-African American) 97.6; Magnesium 1.9 mg/dl (1.8-2.4)
--- NOTE | 2020-01-09 17:20 | XRay Report ---
XR shoulder RT min 2V routine HISTORY: 54 years-old Male fall, pain acute post radical right shoulder pain COMPARISON: Chest radiograph of same day and also 07/11/2019 TECHNIQUE: 3 views of the right shoulder FINDINGS: There is an acute comminuted mildly displaced fracture of the proximal right humerus which involves t he surgical neck, greater and lesser tuberosities and also likely the articular humeral head. No ml ohumeral dislocation. Moderate soft tissue swelling surrounds the right shoulder. There is at least m ild glenohumeral and AC joint osteoarthritis. IMPRESSION: Acute comminuted and mildly displaced fracture of the proximal right humerus. ACT 112: Negative or not required by law. The above report was generated using voice recognition software. It may contain grammatical, syntax o r spelling errors. Electronically signed by: Varghese Pierce M.D. 01/09/2020 5:19 PM
--- NOTE | 2020-01-09 17:21 | XRay Report ---
XR chest 1V portable HISTORY: 54 years-old Male fall, weakness acute post matter right shoulder pain COMPARISON: Chest radiograph 07/11/2019 TECHNIQUE: Portable AP view of the chest FINDINGS: Cardiac mediastinal and hilar silhouettes are within normal limits. Multiple remote left-sided rib fr actures are redemonstrated with unchanged alignment. There is an acute comminuted fracture of the rig ht proximal humerus with fracture involvement in the greater and lesser tuberosities and surgical nec k. No dislocation. No pneumothorax, pleural effusion, overt pulmonary edema or airspace consolidation typical for pneumonia. Mild right hemidiaphragmatic elevation. IMPRESSION: 1. No acute cardiopulmonary abnormality. 2. Acute comminuted mildly displaced fracture of the right proximal humerus. ACT 112: Negative or not required by law. The above report was generated using voice recognition software. It may contain grammatical, syntax o r spelling errors. Electronically signed by: Varghese Pierce M.D. 01/09/2020 5:20 PM
[2020-01-09] MEDS: MULTI-VITAMIN INFUSION 10 ML, THIAMINE HCL 100 MG, FOLIC ACID 1 MG in SODIUM CHLORIDE 0... IV ONE ×2 (17:32→18:14)
[2020-01-09 17:34] LABS: Basophils # (auto) 0.01 K/uL (0-0.2); Basophils % (auto) 0.1 %; Hematocrit (blood only) 43.6 % (42-52); Hemoglobin 15.1 g/dL (14.0-18.0); Immature Granulocytes # (auto) 0.08 K/uL (0.00-0.02); Immature Granulocytes % (auto) 0.7 %; Lymphocytes # (auto) 0.56 K/uL (1.2-3.4); Lymphocytes % (auto) 4.9 %; Mean Corpuscular Hemoglobin 31.9 pg (25-34); Mean Corpuscular Hgb Conc 34.6 g/dL (32-36); Mean Platelet Volume 10.1 fL (7.4-10.4); Monocytes # (auto) 1.37 K/uL (0.11-0.59); Monocytes % (auto) 11.9 %; Neutrophils # (auto) 9.47 K/uL (1.4-6.5); Neutrophils % (auto) 82.4 %; Platelet Count 91 K/uL (130-400); Platelet Estimate Decreased (Normal); RDW Coefficient of Variation 13.5 % (11.5-14.5); RDW Standard Deviation 45.4 fL (36.4-46.3); Red Blood Count 4.74 M/uL (4.7-6.1); White Blood Count 11.49 K/uL (4.8-10.8)
[2020-01-09 17:36] LABS: Albumin Globulin Ratio 0.9 (0.9-2); Globulin 4.1 gm/dl (2.5-4.0); Total Protein 7.7 gm/dl (6.4-8.2); Troponin I 0.111 ng/ml (0-0.045)
[2020-01-09] MEDS ORDERED: LORazepam 2 MG/4 ML VIAL IV STA (17:41)
[2020-01-09] MEDS ORDERED: LIDOCAINE/EPINEPHRINE 1% 20 ML VIAL INFIL ONE (18:03)
[2020-01-09] MEDS ORDERED: POTASSIUM CHLORIDE / WTR 10 MEQ/100 ML PLCT IV ONE (18:47)
--- NOTE | 2020-01-09 18:53 | Emergency Department Note ---
ED Visit Note Patient was seen and evaluated at the request of my attending physician, Dr. Cheema, for a forehead laceration. In short, the patient suffered a fall and struck his head. On examination the patient does have a T-shaped 4 cm laceration just right of midline. This does gape and will require repair. Many of the wound edges are jagged and there is mild persistent bleeding from the wound. Please see Dr. Cheema dictation for full history of present illness and emergency department course outside of this repair. Laceration repair. Patient elects to have their laceration repaired. Verbal consent was obtained to perform the procedure. There is an abundance of materials available for the procedure. Patient is not allergic to latex. Using sterile technique the wound was cleaned with Betadine. The area was sterilely draped. 6 ml of 1% buffered lidocaine with EPI was used to anesthetize the forehead laceration. Once the patient was anesthetized, the wound was copiously irrigated under pressure with sterile saline. The wound was explored and there were no deep structures injured such as tendons, bone, or si gnificant blood vessels. The laceration was repaired using 4 simple interrupted 5-0 nylon sutures with the wound edges being well approximated. Hemostasis was achieved. The area was cleaned with sterile saline and dressed with bacitracin ointment and bandage. Patient tolerated the procedure well without complications. Blood loss was negligible. . : Syncope Qualifiers: Syncope type: unspecified Qualified Code(s): R55 - Syncope and collapse Acute head trauma Qualifiers: Encounter type: initial encounter Qualified Code(s): S09.90XA - Unspecified injury of head, initial encounter Face lacerations Qualifiers: Encounter type: initial encounter Qualified Code(s): S01.81XA - Laceration without foreign body of other part of head, initial encounter Closed fracture of proximal end of right humerus Qualifiers: Encounter type: initial encounter Fracture morphology: other fracture Fracture alignment: displaced Qualified Code(s): S42.291A - Other displaced fracture of upper end of right humerus, initial encounter for closed fracture Compression fracture of T1 vertebra Qualifiers: Encounter type: initial encounter Qualified Code(s): S22.010A - Wedge compression fracture of first thoracic vertebra, initial encounter for closed fracture
[2020-01-09] MEDS ORDERED: ONDANSETRON INJ 2 MG/ML 2 ML VIAL IV PRN (20:01)
[2020-01-09] MEDS ORDERED: diazePAM 5 MG TABLET PO ONE (20:01)
[2020-01-09] MEDS ORDERED: FOLIC ACID 1 MG in SYRINGE 9.8 ML IV SCH (20:01)
[2020-01-09] MEDS ORDERED: POTASSIUM CHLORIDE / WTR 10 MEQ/100 ML PLCT IV STA (20:03)
[2020-01-09] MEDS ORDERED: POTASSIUM CHLORIDE 10 MEQ TABCR PO STA (20:03)
--- NOTE | 2020-01-09 20:11 | History & Physical Report ---
Date of Service January 09, 2020 Assessment & Plan (1) Alcohol withdrawal seizure: 54 yo M PMHx alcohol abuse disorder with hx seizure 2/2 alcohol withdrawal, GERD, prolonged QT admitted for alcohol withdrawal seizure vs. syncope and R humerus fracture. Alcohol withdrawal seizure vs. syncope: - Patient's tongue biting and history of incontinence of urine/feces with recent alcohol drinking and normal alcohol level suggest it is more likely that the patient experienced an alcohol withdrawal seizure. - CT head negative for acute pathology. - AWSS IV Ativan active withdrawal protocol without gabapentin loading. - AWSS score in room 16. Given tremors, anxiety, diaphoresis, mild tachycardia in room will load with 10mg PO Valium. - Patient received banana bag x1 in ED. Continue NSS @150cc/hr with daily folic acid, thiamine, multivitamin. - Ondansetron 4mg IV PRN nausea. - EKG and telemetry without signs of cardiac conduction abnormality. - Continuous cardiac monitoring to evaluate for cardiac causes for ? syncope. - Repeat CMP AM. - Will defer Neurology consult to AM team; has a history of seizures and though the patient's history this admission could be due to other causes, seizure seems most likely. Elevated troponin: - Patient's troponin on arrival 0.111, baseline <0.015. This is in the setting of acute alcohol withdrawal. - Patient without active chest pain, SOB, palpitations. - Continue telemetry monitoring, trend troponin q6h. - Consider Cardiology consult if patient's troponins continue to trend up, or if develops active chest pain. Acute comminuted mildly displaced R proximal humerus fracture: - As seen on XRay. - Morphine 2mg IV q4h PRN pain. - Ortho consult placed. - Patient's arm in sling for immobilization. Elevated CK: - Possibly 2/2 fall and fracture R humerus. No concern for compartment syndrome in any extremity at this time. - Received 2L NSS bolus in ED as well as banana bag x1, will continue NSS @ 150cc/hr. - Repeat CK AM. Forehead laceration: - s/p repair in ED. - Tdap vaccination provided in ED. - Local wound care while admitted. - CT face pending due to bruising under eyes bilaterally. Hypokalemia: - Patient with K 3.0 on arrival. - Repleted in ED with KRiders 10meq x1, have added 40meq IV, 40meq PO. - Recheck BMP AM. Thrombocytopenia: - Chronic, history of. - Suspect secondary to chronic alcohol abuse. - Will continue to follow with daily CBC. Hx back pain and multiple fractures with low bone density: - Patient with chronic back pain at baseline. - Thoracic/Cervical/Lumbar CT with multiple old thoracic vertebral body compression fractures, similar to the preceding study, old superior endplate L1 vertebral body compression fracture, and multiple old bilateral rib fractures - No acute thoracic spine fractures or subluxations identified on imaging. - Patient cleared for C collar removal in ED. No current back or neck pain. - Given history of multiple fractures and low bone density may benefit from bisphosphonate in outpatient setting. Hx GERD: - Start Protonix while admitted. Code Status: FULL CODE FEN/GI: Regular, daily thiamine, folic acid, multivitamin DVT ppx: SCDs Dispo: PCU/Telemetry for continuous cardiac monitoring, neuro checks q4h (2) Syncope: (3) Acute head trauma: (4) Face lacerations: (5) Closed fracture of proximal end of right humerus: (6) Compression fracture of T1 vertebra: (7) Elevated troponin: (8) Alcohol abuse: (9) GERD (gastroesophageal reflux disease): (10) Abnormal LFTs: (11) Thrombocytopenia: (12) Elevated creatine kinase: History of Present Illness Chief Complaint: fall Primary Care Provider: Heather Perez MD 54 yo M PMHx alcohol abuse disorder with hx seizure 2/2 alcohol withdrawal, GERD, prolonged QT presented to ED via EMS for fall, complaining of arm and head pain. Patient reports that for the last two weeks he has not had any alcohol. Last night he felt "that he had beat this thing and could drink a little" and had about 6 giraldo lite standard size cans of beer from the hours of 8pm-3am. He fell asleep around 3am and around 9am upon waking noted that he had been incontinent of urine and feces and that his hands were shaking. Some chief clerk came to the house to perform some work and he moved from his bedroom to the couch around 3pm today. Those workers heard a "thud" and found him on the floor with a laceration on his forehead and called EMS. Patient himself does not recall "passing out" or feeling dizzy prior to losing consciousness. No recent fevers or chills, SOB, CP, palpitations. En route to hospital EMS noted that he appeared to be post-ictal, however on arrival to ED appeared to be alert, though sleepy. He received total Ativan 3mg IV for suspected withdrawal symptoms, IV morphine for pain, banana bag, thiamine, KRiders, and a tetanus vaccine. CT head performed given concern for altered mental status which was negative for acute process. CT cervical/thoracic/lumbar spine with multiple chronic fractures. Head laceration repaired in ED. He was noted to have arm pain and had R shoulder XRay which showed acute comminuted and mildly displaced fracture of the proximal right humerus. Patient's arm was placed in a sling. Alcohol level was undetectable. Hospitalist service was consulted for admission for ? alcohol withdrawal seizure and management vs. syncope. Allergies Allergy/AdvReac Type Severity Reaction Status Date / Time No Known Allergies Allergy Verified 01/09/20 16:59 Home Medications Home Medications Medication Instructions Recorded Confirmed Type No Known Home Medications 01/09/20 01/09/20 History Past Med/Surg History Medical History Anxiety Compression fracture of body of thoracic vertebra (Resolved) Depression GERD (gastroesophageal reflux disease) History of gout History of seizure Hypokalemia (Resolved) Hypomagnesemia (Resolved) Pancreatic pseudocyst CT CAP 07/06/2019 -3.8cm cystic lesion noted at tail of pancreas Prolonged QT interval (Resolved) Pulmonary embolism (Resolved) 2011 Surgical History History of ankle surgery ORIF of Trimalleolar fx 2018 at [facility] History of shoulder surgery Family History Grandmother (Maternal) Non-Hodgkin lymphoma Other Alcoholism in family Cancer Diabetes Social History Smoking Status: Never smoker Second Hand Exposure: No; Hx Alcohol Use: Yes Alcohol type: hard liquor Hx Substance Use: No Preferred Language: Romansh Communication Ability: Effective Visual Impairment: No Limitations Permit Agent Required: No Beliefs That Will Affect Care: None marital status: Single Current Living Situation: Significant Other Current Living Situation Comment: apartment current occupational status: unemployed 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 Feels Safe at Home: Yes Review of Systems Review of Systems: All systems reviewed & are unremarkable except as noted in HPI & below Constitutional: no fever, no chills and no malaise Respiratory: no cough and no dyspnea Cardiovascular: no chest pain, no palpitations and no edema Gastrointestinal: + nausea (this AM) and + diarrhea/loose stools (this AM on waking); no abdominal pain and no constipation Physical Exam Constitutional: WD/WN, vitals as above Eyes: PERRL, conjunctivae normal, anicteric sclerae ENMT: Nose: + external nose abnormality (dried blood at nares) Mouth: + tongue abnormality (laceration at tip of tongue consistent with bite wound); no lip abnormality Neck: normal visual inspection Respiratory: normal respiratory effort, lungs clear to auscultation Cardiovascular: RRR, no murmur, no edema Gastrointestinal (Abdomen): normal bowel sounds, soft, nontender, no hepatosplenomegaly Musculoskeletal: Strength exam convolution 2/2 pain of RUE, otherwise 5/5 strength all extremities R arm flexed, adducted Skin: Bilateral periorbital ecchymosis R forehead with laceration with several simple interrupted sutures, sanguinous discharge Dried blood on bilateral arms Dried blood around mouth Neurologic: moves all extremities (with pain with R arm movement); no focal motor deficits Speech / Cognition: normal speech Motor/Sensory: + tremor (bilateral UE, at rest) sensation intact bilateral UE/LE/face Psychiatric: Orientation: alert tired appearing, sometimes will appear to "drift off" but is redirectable Results & Data Results & Data ([facility]) Vital Signs (Past 12 Hours) Vital Signs Temp Pulse Resp BP Pulse Ox 01/09/20 19:30 108 H 22 152/105 H 98 01/09/20 19:00 99 H 19 174/95 H 97 01/09/20 18:30 107 H 20 175/111 H 98 01/09/20 18:00 105 H 20 138/89 95 01/09/20 17:30 99 H 21 141/93 H 97 01/09/20 17:00 98 H 24 158/89 H 98 01/09/20 16:36 100 H 20 158/86 H 96 01/09/20 16:00 37.6 C H 111 H 18 148/93 H 96 Code Status & VTE Plan VTE Prophylaxis Plan VTE Prophylaxis will be ordered: Yes Supervising Physician Co-Signing Physician Notes Patient seen and examined, chart reviewed, case discussed with Dr. Collins and I agree with her assessment and plan as documented above. Briefly, patient is a 54yo C male with history of Etoh abuse presenting with possible seizure. Patient with multiple contusions and bruising on face as well as a closed fracture of right proximal humerus. Uncertain if these traumas occurred during his possible seizure vs falls? Patient has been to inpatient alcohol rehab on two prior occasions. He attends AA occasionally as well. On exam he is afebrile, tachycardic and mildly hypertensive, in pain secondary to arm fracture and facial injuries Skin - laceration on forehead, bruising on feet and legs HEENT - +perioral ecchymosis, facial laceration, bruising and edema. Facial bones stable. No Tierney's sign. Heart -+S1/S2, regular, no m/r/g Lungs - CTA Abd - +BS, soft, NT/ND Ext - 2+ pulses Neuro - +tremors, +somnolence, nonfocal Labs and images reviewed. Wbc=11.49, Plt = 91, Uw=929, K=3, CO2=19, WKT=092, ALT=84, IK=9262 Assessment/Plan - 54yo C male found down at home, multiple contusions/forehead laceration/fracture of humerus, ?seizure due to EtOH withdrawal with incontinence, tongue biting -Admit to medical floor with telemetry -AWSS with IV Ativan, Thiamine and Folate supplementation -Valium x 10mg, may repeat if patient requiring high doses of Ativan. Unclear how much patient drinks/day -Neuro checks given recent head trauma -Repeat LFTs, CK, chemistry in AM -Ortho consultation re: humerus fracture - arm is in sling now -Remainder of plan as above Resident Activity Tracking Resident Involvement: Resident Care Provided Care Provided: Adult Hospital Medicine (1) Acute head trauma Encounter type: initial encounter Qualified Code(s): S09.90XA - Unspecified injury of head, initial encounter (2) Compression fracture of T1 vertebra Encounter type: initial encounter Qualified Code(s): S22.010A - Wedge compression fracture of first thoracic vertebra, initial encounter for closed fracture (3) Closed fracture of proximal end of right humerus Encounter type: initial encounter Fracture alignment: displaced Fracture morphology: other fracture Qualified Code(s): S42.291A - Other displaced fracture of upper end of right humerus, initial encounter for closed fracture (4) Syncope Syncope type: unspecified Qualified Code(s): R55 - Syncope and collapse (5) Alcohol withdrawal seizure Complication of substance-induced condition: uncomplicated Qualified Code(s): F10.230 - Alcohol dependence with withdrawal, uncomplicated (6) Face lacerations Encounter type: initial encounter Qualified Code(s): S01.81XA - Laceration without foreign body of other part of head, initial encounter (7) GERD (gastroesophageal reflux disease) Esophagitis presence: without esophagitis Qualified Code(s): K21.9 - Gastro- esophageal reflux disease without esophagitis
--- NOTE | 2020-01-09 22:15 | Billing Data ---
Date of Service January 09, 2020 Coding Level of Care Code 29493 Initial Inpt Care Lvl 3
[2020-01-09] MEDS ORDERED: POLYETHYLENE (MIRALAX) 17 GM PACK PO PRN (22:25)
[2020-01-09] MEDS ORDERED: ATIVAN IV ALCOHOL WITHDRAWL IV PRN (22:25)
[2020-01-09] MEDS ORDERED: LORazepam 3 MG/6 ML VIAL IV PRN (22:25)
[2020-01-09 22:31] LABS: Vitamin B12 845 pg/ml (211-911)
[2020-01-09 22:32] LABS: Folate (Folic Acid) > 24.00 ng/ml (>5.38)
[2020-01-09 22:48] LABS: Appearance Urine Clear (Clear); Bacteria Urine Automated Negative (Negative); Blood Urine 3+ (Negative); Color Urine Orange; Glucose Urine UA Negative (Negative); Ketones Urine 1+ (Negative); Leukocyte Esterase Urine Negative (Negative); Nitrite Urine Negative (Negative); Protein Urine 1+ (Negative); RBC Urine Automated 0-4 /hpf (0-4); Specific Gravity Urine 1.019 (1.000-1.030); Urobilinogen Urine Negative (Negative); pH Urine 5.5 (4.5-7.5)
[2020-01-09 22:50] LABS: Bilirubin Urine Negative (Negative); Ictotest Urine Negative (Negative)
[2020-01-09] MEDS: MoRPHine SULFATE 2 MG/ML CARP IV PRN (22:55)
[2020-01-09] MEDS: LORazepam 2 MG/4 ML VIAL IV PRN (22:55)
[2020-01-09] MEDS: SODIUM CHLORIDE 0.9% 1000ML 1,000 ML IV SCH (22:56)
[2020-01-09 23:07] LABS: Amphetamines+Metham, Urine Neg (Neg); Barbiturates, Urine Neg (Neg); Benzodiazepine, Urine Neg (Neg); Cocaine, Urine Neg (Neg); MDMA (Ecstacy), Urine Neg (Neg); Methadone, Urine Neg (Neg); Opiate, Urine Pos (Neg); Phencyclidine, Urine Neg (Neg)
[2020-01-09] MEDS: THIAMINE HCL 100 MG in SYRINGE 9 ML IV SCH (23:35)
[2020-01-09] MEDS: FOLIC ACID 1 MG in SYRINGE 9.8 ML IV SCH (23:35)
[2020-01-10] MEDS: LORazepam 1 MG/2 ML VIAL IV PRN (02:16)
[2020-01-10] MEDS: MoRPHine SULFATE 2 MG/ML CARP IV PRN ×4 (03:05→20:54)
[2020-01-10 04:57] LABS: Hematocrit (blood only) 35.7 % (42-52); Mean Corpuscular Hemoglobin 31.7 pg (25-34); Mean Corpuscular Hgb Conc 33.6 g/dL (32-36); Mean Corpuscular Volume 94.4 fL (80-100); Mean Platelet Volume 10.5 fL (7.4-10.4); Platelet Count 78 K/uL (130-400); RDW Coefficient of Variation 13.6 % (11.5-14.5); RDW Standard Deviation 47.1 fL (36.4-46.3); Red Blood Count 3.78 M/uL (4.7-6.1); White Blood Count 8.08 K/uL (4.8-10.8)
[2020-01-10 05:08] LABS: Albumin Level 3.1 gm/dl (3.4-5.0); BUN Creatinine Ratio 13.8 (10-20); Calcium 7.7 mg/dl (8.5-10.1); Creatinine Clr Calc Pharmacy 136.2 ml/min; Est GFR (African American) 131.3; Est GFR (Non-African American) 113.3; Potassium 3.3 mmol/L (3.5-5.1)
[2020-01-10 05:19] LABS: Basophils # (auto) 0.01 K/uL (0-0.2); Basophils % (auto) 0.1 %; Eosinophils # (auto) 0.01 K/uL (0-0.5); Eosinophils % (auto) 0.1 %; Immature Granulocytes # (auto) 0.04 K/uL (0.00-0.02); Immature Granulocytes % (auto) 0.5 %; Lymphocytes # (auto) 0.86 K/uL (1.2-3.4); Lymphocytes % (auto) 10.6 %; Monocytes # (auto) 0.88 K/uL (0.11-0.59); Monocytes % (auto) 10.9 %; Neutrophils # (auto) 6.28 K/uL (1.4-6.5); Neutrophils % (auto) 77.8 %
[2020-01-10] MEDS: SODIUM CHLORIDE 0.9% 1000ML 1,000 ML IV SCH ×3 (05:28→20:54)
[2020-01-10 05:36] LABS: Albumin Globulin Ratio 0.9 (0.9-2); Globulin 3.6 gm/dl (2.5-4.0); Total Protein 6.7 gm/dl (6.4-8.2); Troponin I 0.09 ng/ml (0-0.045)
--- NOTE | 2020-01-10 06:54 | CT Scan Report ---
CT facial bones wo con CT DOSE: 647.19 mGy.cm CLINICAL HISTORY: Facial pain status post trauma COMPARISON STUDY: July 2015 TECHNIQUE: Helical images were acquired in the transverse plane. The study was reviewed and analyzed on the independent 3-D workstation. A dose lowering technique was utilized adhering to the principle s of ALARA. The pterygoid plates appear intact. The zygomatic arches appear intact. The globes appear intact. There is no evidence of orbital emphysema. The orbital ulloa and floor appear intact. The mandibular condyles appear intact. There is paranasal sinus mucosal thickening. There is soft tissue edema in the right frontal and periorbital region. There are several dental caries. There is a left maxillary molar dental apical abscesses extending in to the left maxillary sinus. IMPRESSION: 1. No fractures identified 2. Poor dentition with several dental caries and a dental apical abscess with left maxillary sinus ex tension. ACT 112: Negative or not required by law. Electronically signed by: Alfred Cardenas M.D. 01/10/2020 6:52 AM
--- NOTE | 2020-01-10 07:05 | Orthopedic Consultation ---
Date of Consultation January 10, 2020 Assessment & Plan (1) Closed fracture of proximal end of right humerus: It is difficult to tell from the x-rays exactly what is going on with this fracture. I will get a CT scan of the right shoulder with 3D reconstructions. This will give me a better idea whether or not there is an indication for surgery. We will not do surgery today and his diet can be advanced at this time.For now, he is to stay in the right arm sling until I get more information and can provide better instruction. Present on Admission?: Yes History of Present Illness Reason for Consultation: Right proximal humerus fracture Attending Physician: Princess Kramer MD History of Present Illness Tushar is a 54-year-old male who has been dealing with alcohol abuse for some time. Apparently, he had stopped drinking over the last 2 weeks. He then started drinking again the other night and he started to notice tremors and issues. He then had some workers at his house when they heard a thud. They found him lying down with a laceration on his head and severe pain in his right shoulder. He does not recall exactly how he fell.He came to the emergency room and radiographs of the right shoulder showed a minimally displaced right proximal humerus fracture. He has been in admitted to the hospital for alcohol withdrawal. Orthopedics was consulted to evaluate and treat the right shoulder. Allergies Allergy/AdvReac Type Severity Reaction Status Date / Time No Known Allergies Allergy Verified 01/09/20 16:59 Home Medications Home Medications Medication Instructions Recorded Confirmed Type No Known Home Medications 01/09/20 01/09/20 History Patient History Medical History Anxiety Compression fracture of body of thoracic vertebra (Resolved) Depression GERD (gastroesophageal reflux disease) History of gout History of seizure Hypokalemia (Resolved) Hypomagnesemia (Resolved) Pancreatic pseudocyst CT CAP 07/06/2019 -3.8cm cystic lesion noted at tail of pancreas Prolonged QT interval (Resolved) Pulmonary embolism (Resolved) 2011 Surgical History History of ankle surgery ORIF of Trimalleolar fx 2018 at [facility] History of shoulder surgery Family History Grandmother (Maternal) Non-Hodgkin lymphoma Other Alcoholism in family Cancer Diabetes Social History Smoking Status: Never smoker Second Hand Exposure: No; Hx Alcohol Use: Yes Alcohol type: beer Hx Substance Use: No Preferred Language: Icelandic Communication Ability: Effective Visual Impairment: No Limitations Mobile Home Laborer Required: No Beliefs That Will Affect Care: None marital status: Single Current Living Situation: Alone Current Living Situation Comment: apartment current occupational status: unemployed 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 Feels Safe at Home: Yes Review of Systems Review of Systems: All systems reviewed & are unremarkable except as noted in HPI & below Physical Exam Constitutional: WD/WN, vitals as above Eyes: PERRL, conjunctivae normal, anicteric sclerae ENMT: external ear and nose normal, oropharynx normal Neck: trachea midline, no thyromegaly Respiratory: normal respiratory effort Cardiovascular: RRR, no murmur, no edema Gastrointestinal (Abdomen): normal bowel sounds, soft, nontender, no hepatospl enomegaly Psychiatric: A+Ox3, euthymic affect Results & Data ([facility]) Vital Signs (Past 12 Hours) Vital Signs Temp Pulse Pulse Resp BP BP Pulse Ox 01/10/20 03:42 36.5 C 98 H 17 125/95 96 01/10/20 00:00 95 H 01/09/20 23:55 36.8 C 94 H 22 140/90 97 01/09/20 22:40 37 C 99 H 22 159/109 H 98 01/09/20 21:30 97 H 15 145/97 H 97 01/09/20 21:00 99 H 18 170/99 H 97 01/09/20 20:55 90 16 143/82 H 97 01/09/20 20:30 102 H 21 156/96 H 01/09/20 20:00 104 H 17 158/94 H 01/09/20 19:30 108 H 22 152/105 H 98 Diagnostic Findings X-rays of the right shoulder do show a minimally displaced comminuted fracture of the right proximal humerus. PG Care Time/CCT Total # of Minutes Spent Total Time Spent with Patient: Total time spent is greater than 50% in coordination of care (as documented) at patient's floor/unit and/or counseling patient: Coding Level of Care Code 41265 Inpt Consult Level 4 Diagnoses Closed fracture of proximal end of right humerus S42.291A Encounter type: initial encounter Fracture alignment: displaced Fracture morphology: other fracture (1) Closed fracture of proximal end of right humerus Encounter type: initial encounter Fracture alignment: displaced Fracture morphology: other fracture Qualified Code(s): S42.291A - Other displaced fracture of upper end of right humerus, initial encounter for closed fracture
[2020-01-10] MEDS: FOLIC ACID 1 MG in SYRINGE 9.8 ML IV SCH (09:01)
[2020-01-10] MEDS: MULTIVITAMIN TAB PO SCH (09:01)
[2020-01-10] MEDS: LORazepam 2 MG/4 ML VIAL IV PRN ×2 (09:01→14:13)
[2020-01-10] MEDS: PANTOprazole 40 MG TAB PO SCH (09:01)
[2020-01-10] MEDS: THIAMINE HCL 100 MG in SYRINGE 9 ML IV SCH (09:01)
--- NOTE | 2020-01-10 10:36 | CT Scan Report ---
CT shoulder RT wo con CT DOSE: 538.34 mGycm CLINICAL HISTORY: Right proximal humeral fracture TECHNIQUE: Helical images were acquired in the transverse plane. Sagittal and coronal reformatted oscar ges were acquired. 3-D reformats were also performed A dose lowering technique was utilized adhering to the principles of ALARA. COMPARISON STUDY: X-ray study dated 01/09/2020 FINDINGS: There is a comminuted intra-articular fracture of the proximal humeral neck and head with posterior d islocation. There is associated fracture involving the posterior lip of the scapular glenoid. The hum eral shaft is displaced anteriorly with respect to the dislocated portion of the humeral head. IMPRESSION: 1. Comminuted intra-articular fracture the humeral neck and head 2. Posterior dislocation of the humeral head 3. Fracture of the posterior lip of the scapular glenoid ACT 112: Negative or not required by law. Electronically signed by: Alfred Cardenas M.D. 01/10/2020 10:35 AM
[2020-01-10] MEDS: OXYCODONE HCL IR 5 MG TAB (IMMEDIATE RELEASE) PO PRN (14:13)
[2020-01-10] MEDS ORDERED: THIAMINE HCL 500 MG in SODIUM CHLORIDE 0.9% 50 ML IV ONE (14:30)
--- NOTE | 2020-01-10 16:06 | Hospitalist Progress Note ---
Date of Service January 10, 2020 Assessment & Plan Admission and Anticipated Discharge Date Admission Date: January 09, 2020 54 yo M PMHx alcohol abuse disorder with hx seizure 2/2 alcohol withdrawal (2007), GERD, prolonged QT admitted for alcohol withdrawal seizure vs. syncope and R humerus fracture. Alcohol withdrawal seizure vs. syncope: Patient endorses approx. 24 drinks per week history of ETOH, last drink within 12 hours of the fall/event and normal alcohol level on admission w/ prior history of withdrawal seizure suggests the patient experienced an alcohol withdrawal seizure. - CT head negative for acute pathology. - AWSS score has improved to 4 this morning. Given tremors, anxiety, RR. - Librium 10 mg BID today, 5 mg BID tomorrow - Patient received banana bag x1 in ED. - Will give high dose thiamine for 3 days - Ondansetron 4mg IV PRN nausea. - EKG and telemetry without signs of cardiac conduction abnormality. - Continuous cardiac monitoring to evaluate for cardiac causes for syncope. - Check Echo - Repeat CMP in the AM. Elevated troponin: This is potentially due to seizure activity vs. cardiogenic syncope which is less likely given lack of history, chest pain, SOB, palpitations, and no abnormalities on telemetry. - Patient's troponin: 0.111 (16:38), 0.105 (21:48), 0.09 (4:13) - ECHO: EF 60-65%, no wall motion abnormalities, nl. size and function - Continue telemetry monitoring - Echo pending Acute comminuted mildly displaced R proximal humerus fracture: - Seen on XRay, and CT - Morphine 2mg IV q4h PRN pain. and Oxycodone 5mg q4H PRN for breakthrough pain - Ortho consult placed with plan for intraoperative repair tomorrow. - RCRI 0 points, w/ no modifiable risk factors although currently being evaluated for withdrawal seizure vs. cardiogenic syncope and considering the risks and benefits of the surgical intervention we believe that the patient should proceed at this time. Elevated CK: - Possibly 2/2 fall and fracture R humerus. No concern for compartment syndrome in any extremity at this time. - Received 2L NSS bolus in ED as well as banana bag x1, will continue NSS @ 150cc/hr. - Repeat CK AM. Forehead laceration: - s/p repair in ED. - Tdap vaccination provided in ED. - Local wound care while admitted. - CT face w/ hematoma and mild left periorbital swelling Hypokalemia: - Patient with K 3.0 on arrival. - Repleted in ED with KRiders 10meq x1, have added 40meq IV, 40meq PO. - K 3.3 this AM - continue to monitor and replete Thrombocytopenia: - Chronic, history of. - Suspect secondary to chronic alcohol abuse. - Will continue to follow Hx back pain and multiple fractures with low bone density: - Patient with chronic back pain at baseline. - Thoracic/Cervical/Lumbar CT with multiple old thoracic vertebral body compression fractures, similar to the preceding study, old superior endplate L1 vertebral body compression fracture, and multiple old bilateral rib fractures - No acute thoracic spine fractures or subluxations identified on imaging. - Patient cleared for C collar removal in ED. No current back or neck pain. - Given history of multiple fractures and low bone density - should get bone density as outpatient. - will check vitamin d level Hx GERD: - Start Protonix while admitted. Code Status: FULL CODE FEN/GI: Regular, thiamine DVT ppx: SCDs Dispo: PCU/Telemetry for continuous cardiac monitoring, neuro checks q4h Supervising Physician Co-Signing Physician Notes Resident Physician Supervision Note: I independently interviewed and examined the patient and verified the flores history and physical, reviewed labs and image studies, discussed the case with the resident Dr. Chatman and agree with the findings and care plan. Subjective Doing okay this morning, patient reviewed what brought him into the hospital today. He explained that he was at his parents condo had drank a "6 pack" of beer. His last drink was at 3AM. There were construction workers at the house and they had put in vinyl floors and got up from sitting and does not remember the event and then he on the ground. He drinks about 6 beers every other day. He had a prior w/d seizure in 2007. Review of Systems Review of Systems: Constitutional: denies fevers, chills Cardiac: denies palpitations admits chest pain yesterday that he attributes to acid reflux Neuro: denies headache Physical Exam Constitutional: well developed and well nourished Eyes: EOM intact bilaterally - blue purple ecchymosis surrounding the eye ENMT: external ear and nose normal, oropharynx normal - no appreciable bite oh or fasciculations - white lesion on tongue Respiratory: normal respiratory effort, lungs clear to auscultation Cardiovascular: RRR, no murmur, no edema Skin: no rashes, warm and dry - laceration of the forehead midline w/ dried blood, ecchymosis and sutures in place - no active bleeding Psychiatric: - story inconsistent upon multiple interviews Results & Data Results & Data ([facility]) Vital Signs (Past 12 Hours) Vital Signs Temp Pulse Resp BP Pulse Ox 01/10/20 11:40 37.1 C 107 H 16 142/93 H 97 01/10/20 07:32 37.4 C 98 H 18 145/90 H 94 01/10/20 03:42 36.5 C 98 H 17 125/95 96 CBC Results Results Complete Blood Count Results: RBC 3.78 M/uL (4.7-6.1) L 01/10/20 WBC 8.08 K/uL (4.8-10.8) 01/10/20 Hgb 12.0 g/dL (14.0-18.0) L 01/10/20 Hct 35.7 % (42-52) L 01/10/20 Plt Count 78 K/uL (130-400) L 01/10/20 Chemistry (BMP) Results BMP Results: Sodium 138 mmol/L (136-145) 01/10/20 Potassium 3.3 mmol/L (3.5-5.1) L 01/10/20 Chloride 109 mmol/L (98-107) H 01/10/20 BUN 9 mg/dl (7-18) 01/10/20 Creatinine 0.62 mg/dl (0.6-1.4) 01/10/20 Glucose 85 mg/dl (70-99) 01/10/20 Resident Activity Tracking Resident Involvement: Resident Care Provided Care Provided: Adult [facility]
--- NOTE | 2020-01-10 16:17 | XCELERA ---
[id number]
[2020-01-10] MEDS ORDERED: POTASSIUM CHLORIDE 20 MEQ TABCR PO STA (16:46)
[2020-01-11] MEDS: LORazepam 2 MG/4 ML VIAL IV PRN ×3 (00:29→16:32)
[2020-01-11] MEDS: SODIUM CHLORIDE 0.9% 1000ML 1,000 ML IV SCH ×3 (03:49→12:56)
--- NOTE | 2020-01-11 07:25 | Orthopedic Progress Note ---
Date of Service January 11, 2020 Assessment & Plan (1) Closed fracture of proximal end of right humerus: He has a displaced fracture of the right proximal humerus. The humeral head is displaced posteriorly. This is a fracture that will require surgical fixation. I spoke to him extensively about it at bedside. The options would be either an open reduction internal fixation versus a shoulder hemiarthroplasty. I feel he is a little too young to do a reverse shoulder arthroplasty. My first attempt will be to fix the shoulder with a plate and screw fixation. I would rather him keep his own anatomy. There is a chance that the comminution extends more into the humeral head than I was expecting and I would be required to do a shoulder hemiarthroplasty. I think you would have a better overall outcome with the plate and screw fixation so that will be our first attempt. Given his his tory of alcoholism as well as possible seizures and falls, I am a little more reluctant to do a shoulder replacement. I would rather repair his current anatomy if I can. He understands the risks, benefits, alternatives to procedures like to proceed. Time was spent describing the procedure and postoperative expectations. He will be in a sling for 6 weeks postoperatively. We will proceed with the surgery later today. He is currently n.p.o. He is already received medical clearance. Present on Admission?: Yes Subjective Tushar was seen and examined at bedside this morning. He still having a lot of pain in the right shoulder. He is unable to move it. He has been stabilized by the medical team. He has had a CAT scan of his right shoulder. He has had no new complaints. Review of Systems Review of Systems: All systems reviewed & are unremarkable except as noted in HPI & below Physical Exam Musculoskeletal: On physical examination of the right shoulder, there is some ecchymosis and swelling. He is wearing a sling as instructed. He is unable to do any motion of the right shoulder. Results & Data ([facility]) Vital Signs (Past 12 Hours) Vital Signs Temp Pulse Resp BP Pulse Ox 01/11/20 03:49 37.4 C 116 H 18 139/94 95 01/10/20 23:53 37.1 C 111 H 18 133/92 96 01/10/20 19:23 37.6 C H 118 H 20 145/[address] scan of the right shoulder does show a comminuted displaced proximal humerus fracture. The humeral head is fractured and rotated posteriorly. There is a single fracture of the greater tuberosity and a comminuted fracture of the lesser tuberosity. PG Care Time/CCT Total # of Minutes Spent Total Time Spent with Patient: Total time spent is greater than 50% in coordination of care (as documented) at patient's floor/unit and/or counseling patient: Coding Level of Care Code 68441 Inpt Consult Level 5 Diagnoses Closed fracture of proximal end of right humerus S42.291A Encounter type: initial encounter Fracture alignment: displaced Fracture morphology: other fracture (1) Closed fracture of proximal end of right humerus Encounter type: initial encounter Fracture alignment: displaced Fracture morphology: other fracture Qualified Code(s): S42.291A - Other displaced fracture of upper end of right humerus, initial encounter for closed fracture
[2020-01-11 08:29] LABS: Hematocrit (blood only) 32.3 % (42-52); Mean Corpuscular Hemoglobin 31.7 pg (25-34); Mean Corpuscular Hgb Conc 34.1 g/dL (32-36); Mean Corpuscular Volume 93.1 fL (80-100); RDW Coefficient of Variation 13.3 % (11.5-14.5); RDW Standard Deviation 44.9 fL (36.4-46.3); Red Blood Count 3.47 M/uL (4.7-6.1); White Blood Count 7.32 K/uL (4.8-10.8)
[2020-01-11 08:38] LABS: Mean Platelet Volume 9.9 fL (7.4-10.4); Platelet Count 68 K/uL (130-400)
--- NOTE | 2020-01-11 08:47 | Electrocardiogram Report ---
Test Reason : Blood Pressure : / mmHG Vent. Rate : 098 BPM Atrial Rate : 098 BPM P-R Int : 150 ms QRS Dur : 084 ms QT Int : 370 ms P-R-T Axes : 041 039 040 degrees QTc Int : 472 ms Normal sinus rhythm Unusual ST segment morphology V1 and V2 Otherwise Normal ECG When compared with ECG of 06-JUL-2019 15:38, T wave amplitude has decreased in Anterior leads Confirmed by Mathieu Ortiz ([id number]) on 01/11/2020 8:46:53 AM Referred By: REFERRED SELF Confirmed By:Mathieu Ortiz
[2020-01-11] MEDS: LORazepam 1 MG/2 ML VIAL IV PRN ×2 (08:49→20:36)
[2020-01-11] MEDS: THIAMINE HCL 300 MG in SODIUM CHLORIDE 0.9% 50 ML IV SCH ×3 (08:52→20:35)
[2020-01-11] MEDS: chlordiazePOXIDE HCl 5 MG CAP PO SCH ×2 (08:53→20:35)
[2020-01-11] MEDS: FOLIC ACID 1 MG in SYRINGE 9.8 ML IV SCH (08:53)
[2020-01-11] MEDS: PANTOprazole 40 MG TAB PO SCH (08:53)
[2020-01-11] MEDS: MULTIVITAMIN TAB PO SCH (08:53)
[2020-01-11 09:03] LABS: Basophils # (auto) 0.01 K/uL (0-0.2); Basophils % (auto) 0.1 %; Eosinophils # (auto) 0.04 K/uL (0-0.5); Eosinophils % (auto) 0.5 %; Immature Granulocytes # (auto) 0.06 K/uL (0.00-0.02); Immature Granulocytes % (auto) 0.8 %; Lymphocytes # (auto) 0.96 K/uL (1.2-3.4); Lymphocytes % (auto) 13.1 %; Monocytes # (auto) 1.06 K/uL (0.11-0.59); Monocytes % (auto) 14.5 %; Neutrophils # (auto) 5.19 K/uL (1.4-6.5)
[2020-01-11 09:15] LABS: Albumin Level 2.9 gm/dl (3.4-5.0); BUN Creatinine Ratio 9.9 (10-20); Calcium 8.2 mg/dl (8.5-10.1); Creatinine Clr Calc Pharmacy 168.1 ml/min; Est GFR (African American) 143.4; Est GFR (Non-African American) 123.7; Potassium 2.8 mmol/L (3.5-5.1)
[2020-01-11 09:21] LABS: Albumin Globulin Ratio 0.8 (0.9-2); Bilirubin,Total 2.3 mg/dl (0.2-1); Globulin 3.6 gm/dl (2.5-4.0); Total Protein 6.5 gm/dl (6.4-8.2)
[2020-01-11] MEDS ORDERED: POTASSIUM CHLORIDE 20 MEQ TABCR PO STA ×2 (09:48→19:52)
[2020-01-11] MEDS ORDERED: ROPIVACAINE 0.5% 5 MG/ML 30 ML VIAL ONE (10:16)
--- NOTE | 2020-01-11 10:26 | Anesthesiology Consultation ---
Date of Service January 11, 2020 Assessment & Plan (1) Encounter for pre-operative examination: Chart Review Chart Review: Pending: Refer to Additional Notes / Consult section (potassium dropped to 2.8 over night - will check to see if replacement has started with goal of > 3.0) History Surgery Operation Date: 01/11/20 12:45 Proposed Procedures p Right Open Reduction Internal Fixation Proximal Humerus Versus - Garett Elder DO s Hemiarthroplasty - Garett Elder DO Height/Weight Height: 5 ft 5 in Weight: 81.6 kg Allergies Allergy/AdvReac Type Severity Reaction Status Date / Time No Known Allergies Allergy Verified 01/09/20 16:59 Medications Home Medications Medication Instructions Recorded Confirmed Last Taken No Known Home Medications 01/09/20 01/09/20 Unknown Active Medications Generic Name Dose Route Start Last Admin Trade Name Freq PRN Reason Stop Dose Admin Chlordiazepoxide HCl 5 mg 01/11/20 09:00 01/11/20 08:53 Librium PO 01/11/20 21:01 5 mg BID JENN Administration Sodium Chloride 1,000 mls @ 150 mls/hr 01/09/20 20:15 01/11/20 10:36 Nss 1000ml IV 02/08/20 20:14 Infused .[id number] JENN Infusion Lorazepam 1 mg in 2 mls @ 2 mls/min 01/09/20 22:25 01/11/20 08:49 Ativan IV 02/08/20 22:24 2 mls/min UD PRN Administration EtOH Withdrawl AWSS Score 6,7 Protocol Lorazepam 2 mg in 4 mls @ 4 mls/min 01/09/20 22:25 01/11/20 00:29 Ativan IV 02/08/20 22:24 4 mls/min UD PRN Administration EtOH Withdrawl AWSS Score 8,9 Protocol Folic Acid 1 mg/ Syringe 10 mls @ 5 mls/min 01/09/20 22:30 01/11/20 08:53 IV 02/08/20 22:29 5 mls/min QAM JENN Administration Thiamine HCl 300 mg/ Sodium 53 mls @ 208 mls/hr 01/11/20 09:00 01/11/20 09:44 Chloride IV 01/11/20 21:16 Infused TID JENN Infusion Morphine Sulfate 2 mg 01/09/20 22:25 01/10/20 20:54 Morphine Sulfate IV 01/23/20 22:24 2 mg Q4H PRN Administration Pain Multivitamins 1 tab 01/10/20 09:00 01/11/20 08:53 Multivitamin Tab PO 02/09/20 08:59 1 tab QAM JENN Administration Oxycodone HCl 5 mg 01/10/20 10:52 01/10/20 14:13 Roxicodone Immediate Rel PO 01/24/20 10:51 5 mg Q4H PRN Administration Pain Pantoprazole Sodium 40 mg 01/10/20 09:00 01/11/20 08:53 Protonix PO 02/09/20 08:59 40 mg DAILY JENN Administration Past Medical History Medical History Anxiety Compression fracture of body of thoracic vertebra (Resolved) Depression GERD (gastroesophageal reflux disease) History of gout History of seizure Hypokalemia (Resolved) Hypomagnesemia (Resolved) Pancreatic pseudocyst CT CAP 07/06/2019 -3.8cm cystic lesion noted at tail of pancreas Prolonged QT interval (Resolved) Pulmonary embolism (Resolved) 2011 Past Family History Family History Grandmother (Maternal) Non-Hodgkin lymphoma Other Alcoholism in family Cancer Diabetes Past Surgical History Surgical History History of ankle surgery ORIF of Trimalleolar fx 2018 at [facility] History of shoulder surgery Social History Smoking Status: Never smoker Hx Alcohol Use: Yes Alcohol type: beer alcohol intake frequency: 3 or more drinks per day Hx Substance Use: No substance use type: does not use Substance Use Type Other:: urine positive for opiates Physical Exam Vital Signs Last Vital Signs Temp 36.8 C 01/11/20 07:43 Pulse 100 H 01/11/20 07:43 Resp 20 01/11/20 07:43 BP 136/102 H 01/11/20 07:43 Pulse Ox 97 01/11/20 07:43 Testing Laboratory Results 01/11/20 08:12 01/11/20 08:11 PT 11.0 Seconds (9.0-12.0) 01/10/20 04:13 INR 1.0 (0.9-1.1) 01/10/20 04:13 Urine Color [place] 01/09/20 21:40 Urine Appearance Clear (Clear) 01/09/20 21:40 Urine pH 5.5 (4.5-7.5) 01/09/20 21:40 Ur Specific [place] 1.019 (1.000-1.030) 01/09/20 21:40 Urine Protein 1+ (Negative) H 01/09/20 21:40 Urine Glucose (UA) Negative (Negative) 01/09/20 21:40 Urine Ketones 1+ (Negative) H 01/09/20 21:40 Urine Nitrite Negative (Negative) 01/09/20 21:40 Ur Leukocyte Esterase Negative (Negative) 01/09/20 21:40 Urine WBC (Auto) 1-5 /hpf (0-5) 01/09/20 21:40 Urine RBC (Auto) 0-4 /hpf (0-4) 01/09/20 21:40 U Hyaline Cast (Auto) 1-5 /lpf (0-5) 01/09/20 21:40 U Epithel Cells (Auto) 10-20 /lpf (0-5) H 01/09/20 21:40 Urine Bacteria (Auto) Negative (Negative) 01/09/20 21:40 Electrocardiogram Date: 01/09/20 Findings: + NSR @ (98) and + NSST changes Chest X-Ray Date: 01/09/20 Findings: + NAD Echocardiogram Date: 01/10/20 EF: 60-65% LV Function: normal RWMA: + none Valvular Disease: + no significant valvular disease
--- NOTE | 2020-01-11 11:02 | Orthopedic Progress Note ---
Date of Service January 11, 2020 Assessment & Plan (1) Closed fracture of proximal end of right humerus: We will plan to proceed with an ORIF versus hemiarthroplasty of his right shoulder tomorrow. His COVID test came back negative. Will get some IV potassium throughout the day today and have his potassium levels rechecked. He will be n.p.o. after midnight tonight. Present on Admission?: Yes Subjective Unfortunately Tushar's potassium today was 2.8. He is n.p.o. He was seen by anesthesia. Anesthesia felt that a potassium of 2.8 was too low to proceed with the surgery. They would like to give him another 24 hours to get his potassium levels back towards normal. His surgery was canceled for today and put on for tomorrow. Results & Data ([facility]) Vital Signs (Past 12 Hours) Vital Signs Temp Pulse Pulse Resp BP Pulse Ox 01/11/20 10:35 37.3 C 104 H 20 138/92 100 01/11/20 07:43 36.8 C 100 H 20 136/102 H 97 01/11/20 03:49 37.4 C 116 H 18 139/94 95 01/10/20 23:53 37.1 C 111 H 18 133/92 96 PG Care Time/CCT Total # of Minutes Spent Total Time Spent with Patient: Total time spent is greater than 50% in coordination of care (as documented) at patient's floor/unit and/or counseling patient: Coding Level of Care Code 27434 Subseq Hosp Care Lvl 1 Diagnoses Closed fracture of proximal end of right humerus S42.291A Encounter type: initial encounter Fracture alignment: displaced Fracture morphology: other fracture (1) Closed fracture of proximal end of right humerus Encounter type: initial encounter Fracture alignment: displaced Fracture morphology: other fracture Qualified Code(s): S42.291A - Other displaced fracture of upper end of right humerus, initial encounter for closed fracture
[2020-01-11] MEDS ORDERED: POTASSIUM PHOS 3 MMOL/1 ML INFUSION IV STA (11:09)
[2020-01-11] MEDS ORDERED: MAGNESIUM SULFATE / D5W 1 GM/100 ML BAG IV SCH (11:30)
[2020-01-11] MEDS ORDERED: POTASSIUM PHOSPHATE 40 MMOL in SODIUM CHLORIDE 0.9% 1000ML 1,000 ML IV ONE (11:30)
--- NOTE | 2020-01-11 14:17 | Hospitalist Progress Note ---
Date of Service January 11, 2020 Assessment & Plan Admission and Anticipated Discharge Date Admission Date: January 09, 2020 54 yo M PMHx alcohol abuse disorder with hx seizure 2/2 alcohol withdrawal (2007), GERD, prolonged QT admitted for alcohol withdrawal seizure vs. syncope and R humerus fracture. Alcohol withdrawal seizure vs. syncope: Patient endorses approx. 24 drinks per week history of ETOH, last drink within 12 hours of the fall/event and normal alcohol level on admission w/ prior history of withdrawal seizure suggests the patient experienced an alcohol withdrawal seizure. - CT head negative for acute pathology. - AWSS score most recently (16:00) 8 for anxiety, tremor, temp, pulse, RR, BP and perspiration - Librium 5 mg BID today - Patient received banana bag x1 in ED. - Will give high dose thiamine for 3 days - Ondansetron 4mg IV PRN nausea. - EKG and telemetry without signs of cardiac conduction abnormality. - Continuous cardiac monitoring to evaluate for cardiac causes for syncope. - ECHO reassuring with nl EF and no regional wall motion abnormalities - Repeat CMP in the AM. Elevated troponin: This is potentially due to seizure activity vs. cardiogenic syncope which is less likely given lack of history, chest pain, SOB, palpitations, and no abnormalities on telemetry. - Patient's troponin: 0.111 (16:38), 0.105 (21:48), 0.09 (4:13) - ECHO: EF 60-65%, no wall motion abnormalities, nl. size and function - Continue telemetry monitoring Acute comminuted mildly displaced R proximal humerus fracture: - Seen on XRay, and CT - Morphine 2mg IV q4h PRN pain. and Oxycodone 5mg q4H PRN for breakthrough pain - Ortho consult placed with plan for intraoperative repair today, although potassium was low at 2.9 and the surgery was pushed to tomorrow; treating hypokalemia as below Pre-operative evaluation - RCRI 0 points, w/ no modifiable risk factors although currently being evaluated for withdrawal seizure vs. cardiogenic syncope and considering the risks and benefits of the surgical intervention we believe that the patient should proceed at this time. Elevated CK, improving - Possibly 2/2 fall and fracture R humerus. No concern for compartment syndrome in any extremity at this time. - Received 2L NSS bolus in ED as well as banana bag x1 Forehead laceration: - s/p repair in ED. - Tdap vaccination provided in ED. - Local wound care while admitted. - CT face w/ hematoma and mild left periorbital swelling Hypokalemia: - Patient with K 3.0 on arrival. - Repleted in ED with KRiders 10meq x1, have added 40meq IV, 40meq PO. - K 2.8 this AM - NSS was stopped - continue to replete today w/ 40 X 2 oral and 40 IV - afternoon repeat was 3.4 - will recheck in the AM and replete as needed Thrombocytopenia: - Chronic, history of. - Suspect secondary to chronic alcohol abuse. - Will continue to follow Hx back pain and multiple fractures with low bone density: - Patient with chronic back pain at baseline. - Thoracic/Cervical/Lumbar CT with multiple old thoracic vertebral body compression fractures, similar to the preceding study, old superior endplate L1 vertebral body compression fracture, and multiple old bilateral rib fractures - No acute thoracic spine fractures or subluxations identified on imaging. - Patient cleared for C collar removal in ED. No current back or neck pain. - Given history of multiple fractures and low bone density - should get bone density as outpatient. - will check vitamin d level Hx GERD: - Start Protonix while admitted. Code Status: FULL CODE FEN/GI: Regular, thiamine DVT ppx: SCDs Dispo: PCU/Telemetry for continuous cardiac monitoring, neuro checks q4h Supervising Physician Co-Signing Physician Notes Resident Physician Supervision Note: I independently interviewed and examined the patient and verified the flores history and physical, reviewed labs and image studies, discussed the case with the resident Dr. Chatman and agree with the findings and care plan. Subjective Doing well this morning, he was in the room with his mother when I saw him. We reviewed the plan for the day and there were no questions. He continues to endorse that he would like to quit drinking. Review of Systems Review of Systems: constitutional: denies fevers or chills cardiac: denies chest pain, palpitations Pulm: denies cough, shortness of breath neuro: denies headache : denies urinary symptoms GI: denies nausea or vomiting Physical Exam Physical Exam: Constitutional well developed and well nourished Eyes EOM intact bilaterally - blue purple ecchymosis surrounding the eye ENMT external ear and nose normal, oropharynx normal - no appreciable fasciculations - white lesion on tongue Respiratory normal respiratory effort, lungs clear to auscultation Cardiovascular RRR, no murmur, no edema Skin no rashes, warm and dry - laceration of the forehead midline w/ dried blood, ecchymosis and sutures in place - no active bleeding Psychiatric - euthymic mood Results & Data Results & Data ([facility]) Vital Signs (Past 12 Hours) Vital Signs Temp Pulse Pulse Pulse Resp BP Pulse Ox 01/11/20 11:36 36.9 C 107 H 20 140/94 98 01/11/20 10:35 37.3 C 104 H 20 138/92 100 01/11/20 08:00 98 H 01/11/20 07:43 36.8 C 100 H 20 136/102 H 97 01/11/20 03:49 37.4 C 116 H 18 139/94 95 CBC Results Results Complete Blood Count Results: RBC 3.43 M/uL (4.7-6.1) L 01/12/20 WBC 8.99 K/uL (4.8-10.8) 01/12/20 Hgb 10.6 g/dL (14.0-18.0) L 01/12/20 Hct 32.6 % (42-52) L 01/12/20 Plt Count 112 K/uL (130-400) L 01/12/20 Chemistry (BMP) Results BMP Results: Sodium 137 mmol/L (136-145) 01/12/20 Potassium 3.4 mmol/L (3.5-5.1) L 01/12/20 Chloride 105 mmol/L (98-107) 01/12/20 BUN 6 mg/dl (7-18) L 01/12/20 Creatinine 0.62 mg/dl (0.6-1.4) 01/12/20 Glucose 97 mg/dl (70-99) 01/12/20 Resident Activity Tracking Resident Involvement: Resident Care Provided Care Provided: Adult Hospital Medicine
[2020-01-11 16:32] LABS: BUN Creatinine Ratio 11.3 (10-20); Calcium 8.1 mg/dl (8.5-10.1); Creatinine Clr Calc Pharmacy 133.4 ml/min; Est GFR (African American) 130.4; Est GFR (Non-African American) 112.5; Potassium 3.4 mmol/L (3.5-5.1)
[2020-01-11] MEDS ORDERED: COUGH DROP (SUGAR FREE) LOZ 24 LOZ/1 BOX BUCCAL ONE (16:34)
[2020-01-12] MEDS: LORazepam 1 MG/2 ML VIAL IV PRN ×3 (00:25→20:08)
[2020-01-12] MEDS: MoRPHine SULFATE 2 MG/ML CARP IV PRN ×2 (01:12→08:54)
[2020-01-12 06:52] LABS: Basophils # (auto) 0.01 K/uL (0-0.2); Basophils % (auto) 0.1 %; Eosinophils # (auto) 0.05 K/uL (0-0.5); Eosinophils % (auto) 0.6 %; Hematocrit (blood only) 32.6 % (42-52); Hemoglobin 10.6 g/dL (14.0-18.0); Immature Granulocytes % (auto) 1.1 %; Lymphocytes # (auto) 1.36 K/uL (1.2-3.4); Lymphocytes % (auto) 15.1 %; Mean Corpuscular Hemoglobin 30.9 pg (25-34); Mean Corpuscular Hgb Conc 32.5 g/dL (32-36); Mean Platelet Volume 10.1 fL (7.4-10.4); Monocytes # (auto) 1.43 K/uL (0.11-0.59); Monocytes % (auto) 15.9 %; Neutrophils # (auto) 6.04 K/uL (1.4-6.5); Neutrophils % (auto) 67.2 %; Platelet Count 112 K/uL (130-400); RDW Coefficient of Variation 13.3 % (11.5-14.5); RDW Standard Deviation 46.3 fL (36.4-46.3); Red Blood Count 3.43 M/uL (4.7-6.1); White Blood Count 8.99 K/uL (4.8-10.8)
[2020-01-12 07:00] LABS: BUN Creatinine Ratio 10.1 (10-20); Calcium 8.7 mg/dl (8.5-10.1); Creatinine Clr Calc Pharmacy 133.9 ml/min; Est GFR (African American) 131.3; Est GFR (Non-African American) 113.3; Magnesium 1.8 mg/dl (1.8-2.4); Potassium 3.4 mmol/L (3.5-5.1)
[2020-01-12] MEDS: POTASSIUM CHLORIDE / WTR 10 MEQ/100 ML PLCT IV SCH ×4 (07:52→11:14)
[2020-01-12 08:09] LABS: Codeine Urine NEGATIVE ng/mL (<50); Hydrocodone Urine NEGATIVE ng/mL (<50); Hydromor Urine NEGATIVE ng/mL (<50); Morphine Urine >10000 ng/mL (<50); Norhydrocodone Conf Ur NEGATIVE ng/mL (<50); Noroxycodone Urine NEGATIVE ng/mL (<50); Oxycodone Urine NEGATIVE ng/mL (<50); Oxymorph Urine NEGATIVE ng/mL (<50)
[2020-01-12] MEDS: THIAMINE HCL 100 MG in SYRINGE 9 ML IV SCH (08:55)
[2020-01-12] MEDS: FOLIC ACID 1 MG in SYRINGE 9.8 ML IV SCH (08:56)
[2020-01-12] MEDS: PANTOprazole 40 MG TAB PO SCH (09:03)
[2020-01-12] MEDS: MULTIVITAMIN TAB PO SCH (09:03)
--- NOTE | 2020-01-12 11:10 | XRay Report ---
XR knee RT 4V HISTORY: 54 years-old Male right knee pain acute right-sided knee pain without reported trauma COMPARISON: None TECHNIQUE: AP, sunrise, AP axial and lateral views of the right knee FINDINGS: No significant joint space narrowing, acute fracture, osteochondral defect or large joint effusion. M inimal tricompartment marginal spurring. Small joint effusion. IMPRESSION: Small joint effusion without acute fracture or dislocation. ACT 112: Negative or not required by law. The above report was generated using voice recognition software. It may contain grammatical, syntax o r spelling errors. Electronically signed by: Varghese Pierce M.D. 01/12/2020 11:08 AM
--- NOTE | 2020-01-12 11:13 | XRay Report ---
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 No acute fracture, dislocation or avascular necrosis. Mild soft tissue swelling lateral to the right hip. IMPRESSION: No acute fracture or dislocation. ACT 112: Negative or not required by law. The above report was generated using voice recognition software. It may contain grammatical, syntax o r spelling errors. Electronically signed by: Varghese Pierce M.D. 01/12/2020 11:12 AM
--- NOTE | 2020-01-12 12:05 | History & Physical Bridge Note ---
Date of Service January 12, 2020 History & Physical Bridge Note I have examined the patient, reviewed the History & Physical and in the interval since the performance of the History & Physical I have noted the following changes of clinical significance: no changes noted
[2020-01-12] MEDS ORDERED: ROPIVACAINE 0.5% 5 MG/ML 30 ML VIAL ONE (12:39)
[2020-01-12] MEDS ORDERED: LIDOCAINE HCL 2% 2 ML VIAL/AMP(20MG/ML) INFIL ONE (12:47)
[2020-01-12] MEDS ORDERED: PROPOFOL IV EMULSION 10 MG/ML 20 ML VIAL IV ONE (12:47)
[2020-01-12] MEDS ORDERED: DEXAMETHASONE SOD INJ 4 MG/ML VIAL ONE (12:47)
[2020-01-12] MEDS ORDERED: fentaNYL citrate 100 MCG/2 ML VIAL ONE ×2 (12:47→15:41)
[2020-01-12] MEDS ORDERED: ONDANSETRON INJ 2 MG/ML 2 ML VIAL ONE (12:47)
[2020-01-12] MEDS ORDERED: MIDAZOLAM HCL 1 MG/ML 2ML VIAL ONE ×2 (12:47→13:52)
[2020-01-12] MEDS ORDERED: ROCURONIUM BROMIDE 10 MG/ML 5 ML VIAL IV ONE (12:47)
[2020-01-12] MEDS ORDERED: BUPIVACAINE 0.5 % 5 MG/1 ML PF 10ML VIAL ONE (13:33)
[2020-01-12] MEDS ORDERED: ATROPINE SULFATE 0.1 MG/ML 10ML SYR IV PRN (13:37)
[2020-01-12] MEDS ORDERED: fentaNYL citrate 100 MCG/2 ML VIAL IV PRN (13:37)
[2020-01-12] MEDS ORDERED: KETOROLAC 30 MG/ML VIAL IV PRN (13:37)
[2020-01-12] MEDS ORDERED: ONDANSETRON INJ 2 MG/ML 2 ML VIAL IV PRN ×2 (13:37→18:02)
[2020-01-12] MEDS ORDERED: HYDROmorphone INJ 2 MG/ML SYR/VIAL IV PRN (13:37)
[2020-01-12] MEDS ORDERED: DEXAMETHASONE SOD INJ 4 MG/ML VIAL IV PRN (13:37)
[2020-01-12] MEDS ORDERED: PROMETHAZINE HCL 12.5 MG in SODIUM CHLORIDE 0.9% 50 ML IV PRN (13:37)
[2020-01-12] MEDS ORDERED: ePHEDrine sulfate 50 MG/ML AMP IV PRN (13:37)
[2020-01-12] MEDS ORDERED: METOCLOPRAMIDE HCL INJ 5 MG/ML 2 ML VIAL IV PRN ×2 (13:37→18:02)
[2020-01-12] MEDS ORDERED: CEFAZOLIN 2,000 MG/15 ML IV PUSH IV ONE (13:59)
[2020-01-12] MEDS ORDERED: CEFAZOLIN 2000MG 2,000 MG/15 ML SYR IV SCH (14:00)
--- NOTE | 2020-01-12 16:40 | Fluoroscopy Report ---
FL humerus RT 2V CLINICAL HISTORY: RT. ORIF COMPARISON STUDY: 01/09/2020 FLUOROSCOPY TIME: 14 seconds. NUMBER OF FLUOROSCOPIC IMAGES: 1 FINDINGS: A single intraoperative fluoroscopic spot image reveal postsurgical changes of a right shou lder arthroplasty. IMPRESSION: Intraoperative fluoroscopic spot image demonstrating a right shoulder arthroplasty. ACT 112: Negative or not required by law. Electronically signed by: Alfred Cardenas M.D. 01/12/2020 4:39 PM
--- NOTE | 2020-01-12 16:41 | Operative Report ---
PG Post Operative Report Pre & Post Diagnosis Operation Date: 01/11/20 15:15 <No data on this case meets the specified criteria> Operation Date: 01/12/20 07:00 Pre-Op Diagnosis: Closed fracture of proximal end of right humerus Post-Op Diagnosis: Closed fracture of proximal end of right humerus I identified the patient and participated in the time-out.: Yes Procedure Operation Date: 01/11/20 15:15 <No data on this case meets the specified criteria> Operation Date: 01/12/20 07:00 Actual Procedures p Right humeral hemiarthroplasty,cemented (Right) - Garett Elder DO s Hemiarthroplasty - Garett Elder DO Surgeon Garett Elder DO Search Marketing Specialist Garett Velazquez PAC Estimated Blood Loss 200 Findings Consistent with Post-Op Diagnosis Specimens Right humeral head Complications none Disposition Disposition: Recovery Room Indications Tushar is a 54-year-old male who was drinking alcohol and passed out 2 days ago. He does not recall the event. He may have had a seizure. He has struggled with alcohol abuse in the past. He came to the emergency room with a laceration over his head and right shoulder pain. X-rays demonstrated a comminuted four-part proximal humerus fracture. CT scan confirmed the fracture. After discussions at bedside, we elected to proceed with an ORIF versus hemiarthroplasty of the right shoulder. Description of Procedure Implants used: I used a Biomet comprehensive fracture shoulder hemiarthroplasty with a size 12 stem and a size 46 x 18 eccentric head. I was unable to get a good press-fit with the stem so I used a little bit of Palacos G cement just around the very proximal portion of the diaphysis. On January 12, 2020 Tushar was brought down from his hospital room to the preoperative holding area. The operative extremity was identified and signed. He was given a preoperative antibiotic and a right interscalene nerve block. He was taken back to the operating room and laid on the table in the supine posit ion. He was put under general anesthesia. He was put into the beachchair position. The right shoulder was prepped and draped in sterile fashion. A timeout was done. The patient and the operative extremity was properly identified. A deltopectoral approach was used. Dissection was taken down through the fascia. The fracture was exposed. Time was spent clearing out the hematoma. The biceps tendon was identified and tenodesed to the upper border the pectoralis major. The rotator interval was opened up. Unfortunately there was a comminuted fracture of the greater tuberosity and severe comminution of the lesser tuberosity. Was able to open up the fracture and try to reduce the humeral head. The bone stock of the humeral head was very poor and there was a large posterior Hill-Sachs lesion. Given the amount of comminution and bone loss, I elected to proceed with a shoulder hemiarthroplasty. The glenoid was exposed and any frayed labrum was carefully removed. The glenoid looked okay. The humeral shaft was then exposed. Sequential reaming up to a size 12 reamer was done. A size 12 trial was placed. A 46 x 18 mm head was placed in the shoulder was reduced. Fluoroscopic images showed near anatomic alignment. The shoulder was then dislocated and the trials were removed. I tried to upsize him to a size 14 to get a good press-fit but I was unable to do that. I decided to use the size 12 stem. The final size 12 comprehensive fracture stem was then impacted into place. There was just enough toggle with it that I decided to cement the proximal portion with Palacos G cement. No cement was placed distally. Once cement had hardened a 46 x 18 mm eccentric head was once again placed. The shoulder was reduced. Fluoroscopic images showed anatomic alignment. The shoulder was dislocated and the final 46 x 18 mm head was placed. Four #5 FiberWire sutures were passed through the greater tuberosity at the articular margin with the rotator cuff. The sutures were passed around the neck of the humeral stem. True the sutures were passed around the lesser tuberosity. The sutures were then placed through the holes on the fracture stem. All sutures were then tied. This gave a nice fixation around the stem of the tuberosity fragments. 2 additional FiberWire sutures were placed earlier in the diaphysis of the humerus. These were passed through the greater and lesser tuberosities to give vertical stability to the fracture fragments. The wound was then irrigated. The shoulder was brought through a full range of motion and felt to be stable. The fascial layer was then closed with 2-0 Vicryl suture. Skin was closed with 2-0 Vicryl and david. A Silverlon dressing was placed. He was then placed in a regular arm sling. He was then extubated and tr ansferred to a litter. He was taken to the postanesthesia care unit in stable condition. He tolerated the procedure well. Garett Velazquez PA-C, was present for the entire procedure. He was critical for patient positioning, prepping, draping, retraction exposure, wound closure and application of sterile dressing. I attest to the content of the Intraoperative Record and any orders documented therein. Any exceptions are noted below.
--- NOTE | 2020-01-12 17:20 | Anesthesiology Progress Note ---
Date of Service January 12, 2020 Anesthesia Post Procedure Vital Signs Vital Signs: Temp Pulse Pulse Resp BP Pulse Ox 01/12/20 17:15 110 H 18 108/91 95 01/12/20 17:05 106 H 13 138/85 96 01/12/20 16:58 36.5 C 115 H 23 131/78 96 01/12/20 12:26 36.8 C 103 H 20 139/97 96 01/12/20 11:35 37.3 C 104 H 20 132/95 97 01/12/20 08:16 37.4 C 97 H 20 141/94 H 97 01/12/20 03:41 37.2 C 99 H 16 138/84 97 01/12/20 00:00 37.7 C H 103 H 109 H 18 151/93 H 97 01/11/20 19:55 37.3 C 109 H 32 H 136/92 96 01/11/20 17:24 97 H Pain Intensity Right Shoulder: Pain Intensity: 0 Transfer of Care Handoff Completed per policy Notes Mental Status: alert / awake / arousable and participated in evaluation Patient Amnestic to Procedure: Yes Nausea / Vomiting: adequately controlled Pain: adequately controlled Airway Patency, RR, SpO2: stable & adequate BP & HR: stable & adequate Hydration State: stable & adequate Anesthetic Complications: no major complications apparent
[2020-01-12] MEDS: SODIUM CHLORIDE 0.9% 1000ML 1,000 ML IV SCH (17:52)
[2020-01-12] MEDS ORDERED: bisacodyL 10 MG SUPP PR PRN (18:02)
[2020-01-12] MEDS ORDERED: NALOXONE HCL 0.4 MG/1 ML VIAL/CARP IV PRN (18:02)
[2020-01-12] MEDS ORDERED: MAGNESIUM HYDROXIDE SUSP 30 ML UDC PO PRN (18:02)
[2020-01-12] MEDS: OXYCODONE HCL IR 5 MG TAB (IMMEDIATE RELEASE) PO PRN (19:40)
[2020-01-12] MEDS: SENNA 8.6 MG TAB PO SCH (20:12)
[2020-01-12] MEDS: DOCUSATE SODIUM 100 MG CAP PO SCH (20:12)
--- NOTE | 2020-01-12 20:42 | Hospitalist Progress Note ---
Date of Service January 12, 2020 Assessment & Plan Admission and Anticipated Discharge Date Admission Date: January 09, 2020 54 yo M PMHx alcohol abuse disorder with hx seizure 2/2 alcohol withdrawal (2007), GERD, prolonged QT admitted for alcohol withdrawal seizure vs. syncope and R humerus fracture. Alcohol withdrawal seizure vs. syncope: Patient endorses approx. 24 drinks per week history of ETOH, last drink within 12 hours of the fall/event and normal alcohol level on admission w/ prior history of withdrawal seizure suggests the patient experienced an alcohol withdrawal seizure. - CT head negative for acute pathology. - EKG and telemetry without signs of cardiac conduction abnormality. - ECHO reassuring with nl EF and no regional wall motion abnormalities - AWSS scores have improved - Patient received banana bag x1 in ED. - High dose thiamine for 3 days - Mental clear. No sign of withdrawal. No seizures since hospitalized. Elevated troponin: This is potentially due to seizure activity vs. cardiogenic syncope which is less likely given lack of history, chest pain, SOB, palpitations, and no abnormalities on telemetry. - Patient's troponin: 0.111 (16:38), 0.105 (21:48), 0.09 (4:13) - ECHO: EF 60-65%, no wall motion abnormalities, nl. size and function - Continue telemetry monitoring Acute comminuted mildly displaced R proximal humerus fracture: - Seen on XRay, and CT - Morphine 2mg IV q4h PRN pain. and Oxycodone 5mg q4H PRN for breakthrough pain - Ortho consult placed with plan for intraoperative repair today, Right hip and knee pain - XR R. hip/knee without acute fracture Elevated CK, improving - Possibly 2/2 fall and fracture R humerus. No concern for compartment syndrome in any extremity at this time. - Received 2L NSS bolus in ED as well as banana bag x1 Forehead laceration: - s/p repair in ED. - Tdap vaccination provided in ED. - Local wound care while admitted. - CT face w/ hematoma and mild left periorbital swelling Hypokalemia: likely 2/2 NSS that was added to treat elevated CK - Patient with K 3.0 on arrival. - Repleted in ED with KRiders 10meq x1, have added 40meq IV, 40meq PO. - K 3.4 this AM - continue to replete today w/ 40 IV - will recheck in the AM and replete as needed Thrombocytopenia, improving: - Chronic, history of. - Suspect secondary to chronic alcohol abuse. - Will continue to follow Hx back pain and multiple fractures with low bone density: - Patient with chronic back pain at baseline. - Thoracic/Cervical/Lumbar CT with multiple old thoracic vertebral body compression fractures, similar to the preceding study, old superior endplate L1 vertebral body compression fracture, and multiple old bilateral rib fractures - No acute thoracic spine fractures or subluxations identified on imaging. - Patient cleared for C collar removal in ED. No current back or neck pain. - Given history of multiple fractures and low bone density - should get bone density as outpatient. - vitamin d level low at 26, consider starting supplementation Hx GERD: - Start Protonix while admitted. Code Status: FULL CODE FEN/GI: Regular, thiamine DVT ppx: SCDs Dispo: PCU/Telemetry for continuous cardiac monitoring, neuro checks q4h Supervising Physician Co-Signing Physician Notes Resident Physician Supervision Note: I independently interviewed and examined the patient and verified the flores history and physical, reviewed labs and image studies, discussed the case with the resident Dr. Chatman and agree with the findings and care plan. Subjective Mr. Tushar Rosales was doing well this morning. He was having some pain in his right hip and knee. He did not have any questions for me this morning. Review of Systems Review of Systems: constitutional: denies fevers or chills cardiac: denies chest pain, palpitations Pulm: denies cough, shortness of breath neuro: denies headache : denies urinary symptoms GI: denies nausea or vomiting Physical Exam Physical Exam: Constitutional well developed and well nourished Eyes EOM intact bilaterally - blue purple ecchymosis surrounding the eye ENMT external ear and nose normal, oropharynx normal - no appreciable fasciculations - white lesion on tongue Respiratory normal respiratory effort, lungs clear to auscultation Cardiovascular RRR, no murmur, no edema Skin no rashes, warm and dry - laceration of the forehead midline w/ dried blood, ecchymosis and sutures in place - no active bleeding Psychiatric - euthymic mood MSK - right hip and knee pain with flexion of the hip Results & Data Results & Data ([facility]) Vital Signs (Past 12 Hours) Vital Signs Temp Pulse Pulse Resp BP Pulse Ox 01/12/20 19:54 36.8 C 103 H 18 135/68 92 01/12/20 18:50 36.9 C 105 H 18 132/74 96 01/12/20 18:23 36.7 C 105 H 22 138/85 97 01/12/20 17:52 36.9 C 111 H 16 123/88 95 01/12/20 17:35 36.6 C 105 H 17 117/77 95 01/12/20 17:25 108 H 18 115/90 94 01/12/20 17:15 110 H 18 108/91 95 01/12/20 17:05 106 H 13 138/85 96 01/12/20 16:58 36.5 C 115 H 23 131/78 96 01/12/20 12:26 36.8 C 103 H 20 139/97 96 01/12/20 11:35 37.3 C 104 H 20 132/95 97 CBC Results Results Complete Blood Count Results: RBC 3.43 M/uL (4.7-6.1) L 01/12/20 WBC 8.99 K/uL (4.8-10.8) 01/12/20 Hgb 10.6 g/dL (14.0-18.0) L 01/12/20 Hct 32.6 % (42-52) L 01/12/20 Plt Count 112 K/uL (130-400) L 01/12/20 Chemistry (BMP) Results [facility] Results: Sodium 137 mmol/L (136-145) 01/12/20 Potassium 3.4 mmol/L (3.5-5.1) L 01/12/20 Chloride 105 mmol/L (98-107) 01/12/20 BUN 6 mg/dl (7-18) L 01/12/20 Creatinine 0.62 mg/dl (0.6-1.4) 01/12/20 Glucose 97 mg/dl (70-99) 01/12/20 Resident Activity Tracking Resident Involvement: Resident Care Provided Care Provided: Adult [facility] Medicine
[2020-01-12] MEDS: CEFAZOLIN 2000MG 2,000 MG/15 ML SYR IV SCH (21:44)
[2020-01-12] MEDS ORDERED: COUGH DROP (SUGAR FREE) LOZ 24 LOZ/1 BOX BUCCAL PRN (22:15)
--- NOTE | 2020-01-12 22:18 | Communication Note ---
Date of Service: January 12, 2020 Called by nursing staff for concern of new difficulty with vision/accomidation ?neuro deficit On exam (full below) pt has increased diplopial distance to ~14 inches, otherwise neurologically completely intact. Suspect pt has an underlying concussion from his fall. Defer CT-H, pt will be monitored clinically overnight for change and provider to be notified if any new/worsening changes. CN II: Visual mccray are full to confrontation. Pupils are equal and react to light and accomidation. Visual acuity grossly intact. CN III, IV, : At primary gaze, there is no eye deviation. EoM intact without nystagmus. No visual field cuts. CN V: Facial sensation is intact to soft touch in all 3 divisions bilaterally. CN VII: No facial asymmetry, full strength to eyebrow raise, smile, eye close, and cheek puff. CN VII: Hearing is grossly intact. CN IX, X: Palate elevates symmetrically. Phonation is normal without dysarthria. CN XI: Head turning and shoulder shrug are intact CN XII: Tongue protrudes midline. Tongue with small white plaque, ?addition of nystatin swish if persistent. Sensory: Light touch intact in upper and low extremities without deficit or asymmetry. Strength: RUE: finger flexion/extension, engineering designer strength, interosseous 5/5 LUE: elbow flexion/extension, finger flexion/extension, engineering designer strength, interosseous 5/5 RLE: Hip flexion, ankle plantar flexion/dorsiflexion 5/5 LLE: Hip flexion, ankle plantar flexion/dorsiflexion 5/5 Coordination: There is no dysmetria on [id number] (L side only, R side limited by sling) and abbreviated [id number].
[2020-01-13] MEDS: OXYCODONE HCL IR 5 MG TAB (IMMEDIATE RELEASE) PO PRN ×5 (00:04→23:19)
[2020-01-13] MEDS: LORazepam 2 MG/4 ML VIAL IV PRN (00:32)
[2020-01-13] MEDS: SODIUM CHLORIDE 0.9% 1000ML 1,000 ML IV SCH (04:05)
[2020-01-13] MEDS: LORazepam 1 MG/2 ML VIAL IV PRN ×3 (06:08→20:54)
[2020-01-13] MEDS: CEFAZOLIN 2000MG 2,000 MG/15 ML SYR IV SCH (06:08)
[2020-01-13 07:30] LABS: Hematocrit (blood only) 30.7 % (42-52); Hemoglobin 10.1 g/dL (14.0-18.0); Mean Corpuscular Hgb Conc 32.9 g/dL (32-36); Mean Corpuscular Volume 97.2 fL (80-100); Mean Platelet Volume 9.7 fL (7.4-10.4); Platelet Count 156 K/uL (130-400); RDW Coefficient of Variation 13.4 % (11.5-14.5); Red Blood Count 3.16 M/uL (4.7-6.1); White Blood Count 11.51 K/uL (4.8-10.8)
--- NOTE | 2020-01-13 07:42 | Orthopedic Progress Note ---
Date of Service January 13, 2020 Assessment & Plan (1) Status post right shoulder hemiarthroplasty: With regards to his right shoulder is doing fairly well. He can be seen by physical therapy here at the hospital for hand, wrist, and elbow exercises. He will be in a sling for 6 weeks. I do want him to start with physical therapy after discharge to home. He can do therapy twice a week. I just want gentle range of motion of the shoulder. He can follow-up in our office in 2 weeks for the right shoulder. We will remove the david at that time. Full orthopedic discharge instructions for the shoulder were placed in the discharge summary. Present on Admission?: Yes (2) Right knee pain: With regards to his right knee, he is still complaining of a lot of pain. It is his biggest concern at this time. He is unable to bear any weight on the right knee and unable to flex it past 20 degrees. The x-rays were negative. There is a large effusion on very concern for soft tissue injury. I want to pi ck up an MRI of the right knee today. We will discuss treatment moving forward after I see the MRI. Present on Admission?: Yes Netta Finley was seen and examined at bedside this morning. Overall he is doing fairly well with his right shoulder. He was able to get some sleep last night. He is not having much shoulder pain. His biggest complaint is his right knee. He still unable to bear weight on his right knee. He is unable to flex it much past 20 degrees. Initial x-rays of his knee were negative. He has no other complaints. Physical Exam Musculoskeletal: On physical examination of his right shoulder, the Silverlon dressing is clean and dry. He is wearing his sling as instructed. His radial, median, and ulnar nerves are checked intact his wrist. His axillary nerve was not checked yet. On physical examination of his right knee, he has a large effusion. He has range of motion from 0 to 20 degrees but unable to bend much past 20 degrees. He is unable to bear any weight on the right knee. I was unable to do any good Lockman testing on him given the amount of swelling and pain of his knee. There was no deformity. Results & Data ([facility]) Vital Signs (Past 12 Hours) Vital Signs Temp Pulse Pulse Resp BP Pulse Ox 01/13/20 07:06 37.0 C 119 H 16 133/84 91 01/13/20 03:48 37.1 C 107 H 22 134/82 91 01/12/20 23:50 37.1 C 122 H 16 139/81 92 01/12/20 21:27 37.1 C 114 H 18 121/69 93 01/12/20 19:54 36.8 C 103 H 18 135/68 92 Diagnostic Findings X-rays of the right knee were reviewed and show no evidence of fracture. The patella is well aligned. I do not see any significant arthritis. PG Care Time/CCT Total # of Minutes Spent Total Time Spent with Patient: Total time spent is greater than 50% in coordination of care (as documented) at patient's floor/unit and/or counseling patient: Coding Level of Care Code 90729 Subseq Hosp Care Lvl 2 (25 - SIGNIFICANT, SEPARATELY IDENTIFIABLE ) Diagnoses Status post right shoulder hemiarthroplasty Z96.611 Right knee pain M25.561
[2020-01-13] MEDS: DOCUSATE SODIUM 100 MG CAP PO SCH ×2 (07:46→20:54)
[2020-01-13] MEDS: MULTIVITAMIN TAB PO SCH (07:47)
[2020-01-13] MEDS: THIAMINE HCL 100 MG in SYRINGE 9 ML IV SCH (07:47)
[2020-01-13] MEDS: FOLIC ACID 1 MG in SYRINGE 9.8 ML IV SCH (07:47)
[2020-01-13] MEDS: FOLIC ACID 400 MCG TAB PO SCH (07:48)
[2020-01-13] MEDS: PANTOprazole 40 MG TAB PO SCH (07:48)
[2020-01-13 07:59] LABS: Basophils # (auto) 0.01 K/uL (0-0.2); Basophils % (auto) 0.1 %; Immature Granulocytes # (auto) 0.13 K/uL (0.00-0.02); Immature Granulocytes % (auto) 1.1 %; Lymphocytes # (auto) 1.07 K/uL (1.2-3.4); Lymphocytes % (auto) 9.3 %; Monocytes # (auto) 3.16 K/uL (0.11-0.59); Monocytes % (auto) 27.5 %; Neutrophils # (auto) 7.14 K/uL (1.4-6.5)
[2020-01-13] MEDS ORDERED: dexAMETHasone 4 MG TAB PO SCH (08:00)
[2020-01-13 08:13] LABS: BUN Creatinine Ratio 11.4 (10-20); Calcium 8.4 mg/dl (8.5-10.1); Creatinine Clr Calc Pharmacy 101.2 ml/min; Potassium 4.6 mmol/L (3.5-5.1)
[2020-01-13] MEDS ORDERED: MULTIVITAMIN TAB PO SCH (09:00)
[2020-01-13] MEDS: MoRPHine SULFATE 2 MG/ML CARP IV PRN (09:54)
[2020-01-13] MEDS ORDERED: IBUPROFEN 600 MG TAB PO PRN (10:09)
[2020-01-13 12:17] LABS: Albumin Level 2.8 gm/dl (3.4-5.0); Bilirubin Direct 0.6 mg/dl (0-0.2); Bilirubin,Total 1.6 mg/dl (0.2-1); Total Protein 6.8 gm/dl (6.4-8.2)
[2020-01-13] MEDS: IBUPROFEN 600 MG TAB PO SCH ×3 (12:35→21:30)
--- NOTE | 2020-01-13 13:27 | Hospitalist Progress Note ---
Date of Service January 13, 2020 Assessment & Plan (1) Alcohol withdrawal: 54 yo M PMHx alcohol abuse disorder with hx of a withdrawal related seizure (2007), admitted on 01/08 for a fall and subsequent traumatic R humerus fracture. Fall: - Etiology: Alcohol withdrawal seizure > syncope episode - patient denies mechanical fall - Patient endorses approx. 24 drinks per week history of ETOH, last drink within 12 hours of the fall/event - normal alcohol level on admission w/ prior history of withdrawal seizure supports this etiology - CT head negative for acute pathology - EKG and telemetry without signs of cardiac conduction abnormality. - ECHO reassuring with nl EF and no regional wall motion abnormalities History of Alcohol Use Disorder - Currently on [facility] protocol - AWSS scores fluctuating through hospital stay (most recent score of 6) - no seizures activity demonstrated thus far during hospital stay - Patient received banana bag x1 in ED. - received thiamine for 3 days (finished 01/01) - patient reports successful abstinence of alcohol use in the past with naltrexone; he expresses high motivation to achieve abstinence, would like to use naltrexone again - patient does not find the approach used in inpatient Etoh rehab or AA to be helpful Acute comminuted mildly displaced R proximal humerus fracture: - secondary to traumatic fall - fracture visualized on Xray, and CT - status post intraoperative repair by ortho on 01/11 - pain management with scheduled Ibuprofen and Oxycodone 5mg q4H PRN and Morphine 2mg IV q4h for breakthrough pain Elevated troponin: - trop elevated on admission, peaked at 0.1, has since downtrended - etiology is likely demand ischemia in the setting of seizure activity vs. cardiogenic syncope which is less likely given lack of history, chest pain, SOB, palpitations, and no abnormalities on telemetry. - ECHO: EF 60-65%, no wall motion abnormalities, nl. size and function Anemia - Hgb 10.1, MCV 97 - Folate and vitamin B12 normal - blood loss from multiple hematomas likely contributory Right hip and knee pain - secondary to fall - XR R. hip/knee without acute fracture Elevated CK, improving - CK elevated to > 5000, has since improved - Possibly 2/2 fall/seizure and fracture R humerus. - No concern for compartment syndrome in any extremity at this time. - Received 2L NSS bolus in ED as well as banana bag x1. IVF d/c Forehead laceration: - s/p repair in ED - Tdap vaccination provided in ED. - Local wound care while admitted. - CT face w/ hematoma and mild left periorbital swelling. No acute fractures identified Hypokalemia, resolved - likely 2/2 NSS that was added to treat elevated CK - level at 4.6 today Thrombocytopenia, improving: - Chronic, suspect secondary to chronic alcohol abuse - well above transfusion threshold - Will continue to follow Hx back pain and multiple fractures with low bone density: - Patient with chronic back pain at baseline. - Thoracic/Cervical/Lumbar CT with multiple old thoracic vertebral body compression fractures, similar to the preceding study, old superior endplate L1 vertebral body compression fracture, and multiple old bilateral rib fractures - No acute thoracic spine fractures or subluxations identified on imaging. - Patient cleared for C collar removal in ED. No current back or neck pain. - Given history of multiple fractures and low bone density - should get bone density as outpatient. - vitamin d level low at 26, consider starting supplementation Hx GERD: - Start Protonix while admitted Code Status: FULL CODE FEN/GI: Regular DVT ppx: SCDs Dispo: floor Admission and Anticipated Discharge Date Admission Date: January 09, 2020 Supervising Physician Co-Signing Physician Notes Resident Physician Supervision Note: I independently interviewed and examined the patient and verified the flores history and physical, reviewed labs and image studies, discussed the case with the resident Dr. Sprague and agree with the findings and care plan. Subjective No acute events overnight. Says that he is intermittently feeling anxious. Struggling with R arm post-op pain. Review of Systems Psychiatric: + anxiety + restlessness Physical Exam Constitutional: WD/WN, vitals as above cooperative Eyes: PERRL, conjunctivae normal, anicteric sclerae ENMT: external ear and nose normal, oropharynx normal Neck: normal visual inspection and trachea midline Respiratory: normal respiratory effort, lungs clear to auscultation Cardiovascular: Rate/Rhythm: regular rhythm and + tachycardic Heart Sounds: normal S1 and normal S2 Gastrointestinal (Abdomen): normal bowel sounds, soft, nontender, no hepatosplenomegaly Musculoskeletal: Extremities: + upper extremity abnormal to inspection Right (in sling) Skin: Trauma: + hematoma (forehead) and + raccoon eyes Neurologic: Motor/Sensory: no tremor Psychiatric: A+Ox3, euthymic affect Results & Data Results & Data ([facility]) Vital Signs (Past 12 Hours) Vital Signs Temp Pulse Pulse Resp BP Pulse Ox 01/13/20 11:46 36.9 C 127 H 20 138/68 92 01/13/20 07:06 37.0 C 119 H 16 133/84 91 01/13/20 03:48 37.1 C 107 H 22 134/82 91 Resident Activity Tracking Resident Involvement: Resident Care Provided Care Provided: Adult Hospital Medicine (1) Alcohol withdrawal Complication of substance-induced condition: uncomplicated Qualified Code(s): F10.230 - Alcohol dependence with withdrawal, uncomplicated
--- NOTE | 2020-01-13 15:57 | Magnetic Resonance Report ---
MR knee RT wo con HISTORY: Trauma. Pain. Effusion and unable to bear weight after a fall COMPARISON STUDY: None. TECHNIQUE: Multisequence, multiplanar MR imaging of the brain knee was performed without the use of i ntravenous contrast. IV contrast: None. FINDINGS: Menisci: Small focal tear anterior horn lateral meniscus. All remaining composite menisci are unremar kable. Ligaments: Sprain and/or partial tear lateral collateral ligament. All remaining ligaments are intact including anterior and posterior cruciate ligaments. Mild sprain and lateral patellar retinaculum Ex tensor mechanism: The quadriceps tendon and patellar ligament are intact. Articular cartilage and bone: The articular cartilage is intact, and normal marrow signal intensity i s seen throughout the imaged osseous structures. Joint effusion: Small joint effusion Soft tissues: Mild soft tissue edematous change surrounding the knee. This is primarily seen lateral ly. IMPRESSION: 1. Small partial tear lateral collateral ligament versus sprain. 2. Small joint effusion. 3. Small focal tear anterior horn lateral meniscus 4. Mild sprain and lateral patellar retinaculum ACT 112: Negative or not required by law. The above report was generated using voice recognition software. It may contain grammatical, syntax or spelling errors. Electronically signed by: Sherwin Morrell M.D. 01/13/2020 3:56 PM
[2020-01-13] MEDS: CHOLECALCIFEROL 1,000 UNITS 25 MCG TAB PO SCH (16:13)
--- NOTE | 2020-01-13 17:40 | XRay Report ---
XR chest 1V portable CLINICAL HISTORY: SOB, cough dyspnea COMPARISON STUDY: 01/09/2020 FINDINGS: Chronic elevation right hemidiaphragm. Multiple left-sided rib fractures unchanged from the prior study. No acute infiltrate. No evidence for pneumothorax. Operative changes consistent with a right shoulder arthroplasty. IMPRESSION: No acute process. ACT 112: Negative or not required by law. The above report was generated using voice recognition software. It may contain grammatical, syntax or spelling errors. Electronically signed by: Sherwin Morrell M.D. 01/13/2020 5:38 PM
[2020-01-13] MEDS: SENNA 8.6 MG TAB PO SCH (20:54)
[2020-01-14] MEDS: IBUPROFEN 600 MG TAB PO SCH ×3 (06:06→21:34)
[2020-01-14] MEDS ORDERED: ACETAMINOPHEN 500 MG TAB PO PRN (06:47)
[2020-01-14] MEDS ORDERED: TRIAMCINOLONE ACET 40 MG/ML VIAL IA SCH (07:30)
[2020-01-14] MEDS ORDERED: BUPIVACAINE/EPINEPHRINE 0.25% 1:200,000 30 ML VIAL INFIL SCH (07:30)
[2020-01-14] MEDS: FOLIC ACID 1 MG in SYRINGE 9.8 ML IV SCH (07:37)
[2020-01-14] MEDS: LORazepam 1 MG/2 ML VIAL IV PRN ×3 (07:37→20:51)
[2020-01-14] MEDS: THIAMINE HCL 100 MG in SYRINGE 9 ML IV SCH (07:37)
[2020-01-14] MEDS: DOCUSATE SODIUM 100 MG CAP PO SCH ×2 (07:38→20:14)
[2020-01-14] MEDS: MULTIVITAMIN TAB PO SCH (07:38)
[2020-01-14] MEDS: FOLIC ACID 400 MCG TAB PO SCH (07:38)
[2020-01-14] MEDS: PANTOprazole 40 MG TAB PO SCH (07:39)
--- NOTE | 2020-01-14 08:29 | Orthopedic Progress Note ---
Date of Service January 14, 2020 Assessment & Plan (1) Right knee pain: Today, I recommended a knee aspiration injection. He had talked about this with Dr. Elder. He was agreeable to do it this morning in the hospital. The aspiration yielded 18 cc of cloudy synovial fluid. It may be a gouty effusion. 3 cc of Marcaine and 2 cc of Kenalog 40 mg were infused. He was counseled on the treatment effects and expectations. He can be weightbearing and range of motion as tolerated. It may be 3 to 5 days until the steroid takes full effect. (2) Status post right shoulder hemiarthroplasty: Continue plan of care set forth by Dr. Elder's last note. Subjective Reports that he has stable pain at the shoulder. As expected, he states the knee pain is a told her back for mobilized better. He denies any fevers chills or other issues. He reports that he had a history of previous corticosteroid injection approximately 10 years ago in [place]. Believes he may have gout that affects the knees occasionally. We discussed the nature of aspiration to withdraw fluid and corticosteroid injection today. He wants to move forward with that for pain control. Review of Systems Review of Systems: All systems reviewed & are unremarkable except as noted in HPI & below Physical Exam Physical Exam: General: He is awake alert and oriented. He is no acute distress. Is resting comfortably. Right lower extremity: The overlying skin about the knee has no erythema or warmth. There is a moderate effusion on palpation. He has near full arc of motion but pain with terminal limits. Results & Data ([facility]) Vital Signs (Past 12 Hours) Vital Signs Temp Pulse Pulse Resp BP Pulse Ox 01/14/20 07:15 36.9 C 102 H 20 122/80 91 01/14/20 04:11 36.6 C 102 H 16 130/80 90 01/13/20 23:14 37 C 105 H 16 145/87 H 90 PG Care Time/CCT Total # of Minutes Spent Total Time Spent with Patient: Total time spent is greater than 50% in coordination of care (as documented) at patient's floor/unit and/or counseling patient: Coding Level of Care Code 82990 Inpt Consult Level 3 (25 - SIGNIFICANT, SEPARATELY IDENTIFIABLE ) Diagnoses Right knee pain M25.561 Status post right shoulder hemiarthroplasty Z96.611
--- NOTE | 2020-01-14 08:31 | Procedure Note ---
Procedure Note Date of Service January 14, 2020 Right knee aspiration and injection of steroid: Patient was seen and evaluated at the bedside today. He was agreeable proceed with a knee aspiration injection. Consent was obtained with nursing staff present. The skin over the superior lateral aspect of the right knee was prepped with alcohol and Betadine swabs. Timeout was called and the site was confirmed. The patient was agreeable to proceed. Using sterile technique and an 18-gauge needle the knee joint was accessed. A 60 cc syringe was used to aspirate a total of 18 mL of cloudy serous synovial fluid. The same needle was used and a 10 cc syringe was used to push 3 cc of quarter percent Marcaine with epinephrine and 2 cc of Kenalog 40. The patient tolerated procedure well and the site was dressed with a Band-Aid. The synovial fluid be sent to the lab for evaluation. Coding
[2020-01-14 09:55] LABS: Appearance Synovial Fluid HAZY; Color Synovial Fluid YELLOW; Mononuclear WBC Synovial 10.3 %; Polynuclear WBC Synovial 89.7 %; RBC Synovial Fluid (A) < 3000 /uL; Source Synovial Fluid KNEE; WBC Synovial Fluid (A) 7148 /ul (0-200)
[2020-01-14] MEDS: OXYCODONE HCL IR 5 MG TAB (IMMEDIATE RELEASE) PO PRN ×2 (10:30→15:50)
[2020-01-14] MEDS: CHOLECALCIFEROL 1,000 UNITS 25 MCG TAB PO SCH (10:30)
[2020-01-14] MEDS ORDERED: FUROSEMIDE 40 MG in SYRINGE 0 ML IV ONE ×2 (10:45→14:45)
[2020-01-14] MEDS: ACETAMINOPHEN 500 MG TAB PO SCH ×3 (11:34→15:51)
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
[2020-01-14] MEDS ORDERED: ENOXAPARIN INJ 40 MG/0.4 ML SYR SQ ONE (14:45)
[2020-01-14] MEDS ORDERED: BUSPIRONE HCL 7.5 MG TAB PO ONE (18:15)
[2020-01-14] MEDS: SENNA 8.6 MG TAB PO SCH (20:15)
[2020-01-15] MEDS: MELATONIN 3 MG TAB PO PRN ×2 (00:57→23:27)
[2020-01-15] MEDS: IBUPROFEN 600 MG TAB PO SCH ×3 (06:18→20:59)
[2020-01-15 06:37] LABS: Nucleated RBC # (auto) 0.04 K/uL (0-0); Nucleated RBC % (auto) 0.5 %
[2020-01-15 06:41] LABS: Hematocrit (blood only) 28.6 % (42-52); Mean Corpuscular Hemoglobin 30.7 pg (25-34); Mean Corpuscular Hgb Conc 31.5 g/dL (32-36); Mean Corpuscular Volume 97.6 fL (80-100); Mean Platelet Volume 9.9 fL (7.4-10.4); Platelet Count 267 K/uL (130-400); RDW Coefficient of Variation 13.2 % (11.5-14.5); RDW Standard Deviation 46.5 fL (36.4-46.3); Red Blood Count 2.93 M/uL (4.7-6.1); White Blood Count 7.46 K/uL (4.8-10.8)
[2020-01-15 07:12] LABS: Basophils # (auto) 0.01 K/uL (0-0.2); Basophils % (auto) 0.1 %; Immature Granulocytes # (auto) 0.15 K/uL (0.00-0.02); Lymphocytes # (auto) 0.66 K/uL (1.2-3.4); Lymphocytes % (auto) 8.8 %; Monocytes % (auto) 13.4 %; Neutrophils # (auto) 5.64 K/uL (1.4-6.5); Neutrophils % (auto) 75.7 %; Polychromasia 1+
[2020-01-15 07:22] LABS: BUN Creatinine Ratio 22.2 (10-20); Calcium 9.2 mg/dl (8.5-10.1); Creatinine Clr Calc Pharmacy 118.6 ml/min; Est GFR (African American) 124.9; Est GFR (Non-African American) 107.7; Potassium 3.8 mmol/L (3.5-5.1)
[2020-01-15] MEDS ORDERED: FUROSEMIDE 40 MG in SYRINGE 0 ML IV ONE (09:30)
[2020-01-15] MEDS: BUSPIRONE HCL 7.5 MG TAB PO SCH ×3 (09:44→21:00)
[2020-01-15] MEDS: DOCUSATE SODIUM 100 MG CAP PO SCH ×2 (09:45→20:59)
[2020-01-15] MEDS: THIAMINE HCL 100 MG in SYRINGE 9 ML IV SCH (09:45)
[2020-01-15] MEDS: CHOLECALCIFEROL 1,000 UNITS 25 MCG TAB PO SCH (09:45)
[2020-01-15] MEDS: MULTIVITAMIN TAB PO SCH (09:45)
[2020-01-15] MEDS: FOLIC ACID 400 MCG TAB PO SCH (09:45)
[2020-01-15] MEDS: PANTOprazole 40 MG TAB PO SCH (09:45)
[2020-01-15] MEDS: ENOXAPARIN INJ 40 MG/0.4 ML SYR SQ SCH (09:46)
[2020-01-15] MEDS: OXYCODONE HCL IR 5 MG TAB (IMMEDIATE RELEASE) PO PRN ×3 (09:56→21:03)
[2020-01-15] MEDS: FOLIC ACID 1 MG in SYRINGE 9.8 ML IV SCH (10:33)
--- NOTE | 2020-01-15 14:45 | Orthopedic Progress Note ---
Date of Service January 15, 2020 Assessment & Plan (1) Status post right shoulder hemiarthroplasty: With regards to his right shoulder feeling fairly well. He can do simple hand, wrist, and elbow exercises. Will be in a sling for total 6 weeks. I will see him in the office in 2 weeks 3 days with david. Full discharge instructions were placed in the discharge summary. He is orthopedically stable for discharge with regards to his shoulder. Present on Admission?: Yes (2) Gout of right knee: The fluid aspiration from his right knee came back as gout. He was already given an intra-articular injection. His knee is feeling much better. He can follow-up with his primary care physician if he needs further treatment for gout attacks. Present on Admission?: Yes Subjective Skin was examined at bedside morning. Overall he is doing very well. His shoulders is doing better. His knee is feeling much better. He was seen by physical today. He has no complaints Physical Exam Musculoskeletal: On physical examination of the right shoulder, the Silverlon dressing is clean and dry. He is wearing a sling as instructed. On physical examination of his right knee, the effusion has subsided. He has much better motion with flexion and extension today. Results & Data ([facility]) Vital Signs (Past 12 Hours) Vital Signs Temp Pulse Pulse Resp BP Pulse Ox 01/15/20 08:00 36.7 C 88 18 139/83 93 01/15/20 03:40 36.7 C 93 H 16 151/89 H 93 PG Care Time/CCT Total # of Minutes Spent Total Time Spent with Patient: Total time spent is greater than 50% in coordination of care (as documented) at patient's floor/unit and/or counseling patient: Coding Level of Care Code 63966 Subseq Hosp Care Lvl 2 (25 - SIGNIFICANT, SEPARATELY IDENTIFIABLE ) Diagnoses Status post right shoulder hemiarthroplasty Z96.611 Gout of right knee M10.9
--- NOTE | 2020-01-15 17:35 | Hospitalist Progress Note ---
Date of Service January 15, 2020 Assessment & Plan (1) Alcohol withdrawal: 54 yo M PMHx alcohol abuse disorder with hx of a withdrawal related seizure (2007), admitted on 01/08 for a fall and subsequent traumatic R humerus fracture. Referral made to [facility] rehab, awaiting approval. Fall: - Etiology: Alcohol withdrawal seizure > syncope episode - patient denies mechanical fall - Patient endorses approx. 24 drinks per week history of ETOH, last drink within 12 hours of the fall/event - normal alcohol level on admission w/ prior history of withdrawal seizure supports this etiology - CT head negative for acute pathology - EKG and telemetry without signs of cardiac conduction abnormality. - ECHO reassuring with nl EF and no regional wall motion abnormalities History of Alcohol Use Disorder - Currently on [facility] protocol - AWSS scores downtrending (6 --> 2) - no seizures activity demonstrated thus far during hospital stay - Patient received banana bag x1 in ED - received thiamine for 3 days (finished 01/11) - patient reports successful abstinence of alcohol use in the past with naltrexone; he expresses high motivation to achieve abstinence, would like to use naltrexone again - patient does not find the approach used in inpatient Etoh rehab or AA to be helpful Shallow Breathing - subjective report by patient - satting 91% on room air, RR normal at 20 - CXR ordered evening of 01/12 showed no acute process - patient with bilateral crackles in lower lung bases on exam today - suspect volume overloaded (although IVF were discontinued AM of 01/12) - given 3 doses of IV lasix 40mg and perform serial exams Acute comminuted mildly displaced R proximal humerus fracture: - secondary to traumatic fall - fracture visualized on Xray, and CT - status post intraoperative repair by ortho on 01/11 - pain management with scheduled Ibuprofen and Tylenol, Oxycodone 5mg q4H PRN for breakthrough pain Elevated troponin: - trop elevated on admission, peaked at 0.1, has since downtrended - etiology is likely demand ischemia in the setting of seizure activity vs. cardiogenic syncope which is less likely given lack of history, chest pain, SOB, palpitations, and no abnormalities on telemetry. - ECHO: EF 60-65%, no wall motion abnormalities, nl. size and function - patient without chest pain Anemia - Hgb 10.1, MCV 97 - Folate and vitamin B12 normal - blood loss from multiple hematomas likely contributory Right hip and knee pain - secondary to fall - XR R. hip/knee without acute fracture - Knee MRI showing partial tear of LCL and lateral meniscus - s/p aspiration and corticosteroid injection by ortho Elevated CK, improving - CK elevated to > 5000, has since improved - Possibly 2/2 fall/seizure and fracture R humerus. - No concern for compartment syndrome in any extremity at this time. - Received 2L NSS bolus in ED as well as banana bag x1 Forehead laceration: - s/p repair in ED - Tdap vaccination provided in ED. - Local wound care while admitted. - CT face w/ hematoma and mild left periorbital swelling. No acute fractures identified Hypokalemia, resolved - likely 2/2 NSS that was added to treat elevated CK - level at 3.8 today Thrombocytopenia, improving: - Chronic, suspect secondary to chronic alcohol abuse - well above transfusion threshold - Will continue to follow Hx back pain and multiple fractures with low bone density: - Patient with chronic back pain at baseline. - Thoracic/Cervical/Lumbar CT with multiple old thoracic vertebral body compression fractures, similar to the preceding study, old superior endplate L1 vertebral body compression fracture, and multiple old bilateral rib fractures - No acute thoracic spine fractures or subluxations identified on imaging. - Patient cleared for C collar removal in ED. No current back or neck pain. - Given history of multiple fractures and low bone density - should get bone density as outpatient. Low Vitamin D level - vitamin d level low at 26 - oral supplementation initiated Hx GERD: - Start Protonix while admitted Code Status: FULL CODE FEN/GI: Regular DVT ppx: SCDs, Lovenox SQ Dispo: floor Admission and Anticipated Discharge Date Admission Date: January 09, 2020 Supervising Physician Co-Signing Physician Notes I personally examined the patient and verified all flores points of history and exam, discussed case, and agree with decision making with Dr Sprague. pain reasonably controlled - notes ice helps. would like to go to rehab if possible. notes that home is not dangerous, just not very supportive vitals noted nad heent nc at mmm R arm in sling, face bruised EtOH withdrawal/seizures/arm fracture - doing ok now, stable overall. for rehab if possible anxiety - ?EtOH abuse related vs uses EtOH to self medicate vs both. has reiterated several times that home is not abusive, but it does seem to contribute to his anxiety. agree buspar reasonable to start. should have ongoing outpt f/u. Subjective No acute events overnight. Continues to ask to not be sent home in an effort to avoid a stressful environment. Denies intimate partner violence/abuse. Says he feels safe at home and in current relationship. Review of Systems Psychiatric: + anxiety Physical Exam Constitutional: WD/WN, vitals as above cooperative Eyes: PERRL, conjunctivae normal, anicteric sclerae ENMT: external ear and nose normal, oropharynx normal Neck: normal visual inspection and trachea midline Respiratory: normal respiratory effort, lungs clear to auscultation normal respiratory effort Cardiovascular: Rate/Rhythm: regular rhythm and + tachycardic Heart Sounds: normal S1 and normal S2 Gastrointestinal (Abdomen): normal bowel sounds, soft, nontender, no hepatosplenomegaly Musculoskeletal: Extremities: + upper extremity abnormal to inspection Right (in sling) Skin: Trauma: + hematoma (forehead) and + raccoon eyes Neurologic: Motor/Sensory: no tremor Psychiatric: A+Ox3, euthymic affect Results & Data Results & Data ([facility]) Vital Signs (Past 12 Hours) Vital Signs Temp Pulse Resp BP Pulse Ox 01/15/20 15:54 36.7 C 82 18 132/86 95 01/15/20 08:00 36.7 C 88 18 139/83 93 Resident Activity Tracking Resident Involvement: Resident Care Provided Care Provided: Adult Hospital Medicine (1) Alcohol withdrawal Complication of substance-induced condition: uncomplicated Qualified Code(s): F10.230 - Alcohol dependence with withdrawal, uncomplicated
--- NOTE | 2020-01-15 19:23 | Billing Data ---
Date of Service January 15, 2020 Coding Level of Care Code 16355 Subseq Hosp Care Lvl 2
[2020-01-15] MEDS: SENNA 8.6 MG TAB PO SCH (21:00)
[2020-01-16] MEDS ORDERED: LORazepam 0.5 MG/1 ML VIAL IV ONE (03:00)
[2020-01-16] MEDS: IBUPROFEN 600 MG TAB PO SCH ×2 (05:38→14:17)
[2020-01-16] MEDS: MULTIVITAMIN TAB PO SCH (08:52)
[2020-01-16] MEDS: FOLIC ACID 400 MCG TAB PO SCH (08:52)
[2020-01-16] MEDS: BUSPIRONE HCL 7.5 MG TAB PO SCH ×3 (08:52→19:31)
[2020-01-16] MEDS: DOCUSATE SODIUM 100 MG CAP PO SCH (08:52)
[2020-01-16] MEDS: CHOLECALCIFEROL 1,000 UNITS 25 MCG TAB PO SCH (08:53)
[2020-01-16] MEDS: PANTOprazole 40 MG TAB PO SCH (08:53)
[2020-01-16] MEDS: THIAMINE HCL 100 MG in SYRINGE 9 ML IV SCH (08:53)
[2020-01-16] MEDS: ENOXAPARIN INJ 40 MG/0.4 ML SYR SQ SCH (08:53)
[2020-01-16] MEDS: OXYCODONE HCL IR 5 MG TAB (IMMEDIATE RELEASE) PO PRN ×2 (11:56→17:39)
[2020-01-16 15:10] VITALS: BP 147/80; PULSE 81; TEMP 97.7; O2SAT 98
--- NOTE | 2020-01-16 19:48 | Discharge Summary ---
Date of Service January 16, 2020 Admission HPI Per Admitting Provider 54 yo M PMHx alcohol abuse disorder with hx seizure 2/2 alcohol withdrawal, GERD, prolonged QT presented to ED via EMS for fall, complaining of arm and head pain. Patient reports that for the last two weeks he has not had any alcohol. Last night he felt "that he had beat this thing and could drink a little" and had about 6 giraldo lite standard size cans of beer from the hours of 8pm-3am. He fell asleep around 3am and around 9am upon waking noted that he had been incontinent of urine and feces and that his hands were shaking. Some spreader operator came to the house to perform some work and he moved from his bedroom to the couch around 3pm today. Those workers heard a "thud" and found him on the floor with a laceration on his forehead and called EMS. Patient himself does not recall "passing out" or feeling dizzy prior to losing consciousness. No recent fevers or chills, SOB, CP, palpitations. En route to hospital EMS noted that he appeared to be post-ictal, however on arrival to ED appeared to be alert, though sleepy. He received total Ativan 3mg IV for suspected withdrawal symptoms, IV morphine for pain, banana bag, thiamine, KRiders, and a tetanus vaccine. CT head performed given concern for altered mental status which was negative for acute process. CT cervical/thoracic/lumbar spine with multiple chronic fractures. Head laceration repaired in ED. He was noted to have arm pain and had R shoulder XRay which showed acute comminuted and mildly displaced fracture of the proximal right humerus. Patient's arm was placed in a sling. Alcohol level was undetectable. Hospitalist service was consulted for admission for ? alcohol withdrawal seizure and management vs. syncope. Principal Diagnosis EtOH withdrawal seizure, humerus fracture Discharge Exam gen aao pleasantly anxious nad. heent b/l black eyes similar to before. R arm in sling. no other focal findings or lesions. pleasnatly anxious mood/affect Discharge Data Allergies Allergy/AdvReac Type Severity Reaction Status Date / Time No Known Allergies Allergy Verified 01/09/20 16:59 Consultations 01/09/20 19:08 ED Decision to Admit Stat 01/09/20 22:25 Consult Case Management - Discharge Planning Routine Procedures Performed Operation Date: 01/11/20 15:15 <No data on this case meets the specified criteria> Operation Date: 01/12/20 07:00 Actual Procedures p Right humeral hemiarthroplasty,cemented (Right) - Garett Elder DO Ordered Studies 01/09/20 15:50 CT cervical spine wo con Stat CT head/brain wo con Stat CT lumbar spine wo con Stat CT thoracic spine wo con Stat 01/09/20 18:03 CT facial bones wo con Urgent 01/10/20 07:42 CT shoulder RT wo con Routine 01/12/20 13:42 US - OR guided needle placemen Stat 01/12/20 16:31 FL humerus RT 2V Routine 01/12/20 16:32 FL fluoroscopy <1hr Routine 01/13/20 07:36 MR knee RT wo con Routine Hospital Course (1) Alcohol withdrawal: 54 yo M PMHx alcohol abuse disorder with hx of a withdrawal related seizure (2007), admitted on 01/08 for a fall and subsequent traumatic R humerus fracture. Fall: - Etiology: Alcohol withdrawal seizure > syncope episode - patient denies mechanical fall - Patient endorses approx. 24 drinks per week history of ETOH, last drink within 12 hours of the fall/event - normal alcohol level on admission w/ prior history of withdrawal seizure supports this etiology - CT head negative for acute pathology - EKG and telemetry without signs of cardiac conduction abnormality. - ECHO reassuring with nl EF and no regional wall motion abnormalities History of Alcohol Use Disorder - Currently on [facility] protocol - AWSS scores fluctuating through hospital stay (most recent score of 6) - no seizures activity demonstrated thus far during hospital stay - Patient received banana bag x1 in ED. - received thiamine for 3 days (finished 01/01) - patient reports successful abstinence of alcohol use in the past with naltrexone; he expresses high motivation to achieve abstinence, would like to use naltrexone again - patient does not find the approach used in inpatient Etoh rehab or AA to be helpful Acute comminuted mildly displaced R proximal humerus fracture: - secondary to traumatic fall - fracture visualized on Xray, and CT - status post intraoperative repair by ortho on 01/11 - pain management with ibuprofen prn, #5 oxycodone HS prn sent to pharmacy (then had to cancel and resent due to pharmacy having tablets rather than capsules) Elevated troponin: - trop elevated on admission, peaked at 0.1, has since downtrended - etiology is likely demand ischemia in the setting of seizure activity vs. cardiogenic syncope which is less likely given lack of history, chest pain, SOB, palpitations, and no abnormalities on telemetry. - ECHO: EF 60-65%, no wall motion abnormalities, nl. size and function Anemia - Hgb 10.1, MCV 97 - Folate and vitamin B12 normal - blood loss from multiple hematomas likely contributory Right hip and knee pain - secondary to fall - XR R. hip/knee without acute fracture Elevated CK, improving - CK elevated to > 5000, has since improved - Possibly 2/2 fall/seizure and fracture R humerus. - No concern for compartment syndrome in any extremity at this time. - Received 2L NSS bolus in ED as well as banana bag x1. IVF d/c Forehead laceration: - s/p repair in ED - Tdap vaccination provided in ED. - Local wound care while admitted. - CT face w/ hematoma and mild left periorbital swelling. No acute fractures identified Hypokalemia, resolved - likely 2/2 NSS that was added to treat elevated CK - level at 4.6 today Thrombocytopenia, improving: - Chronic, suspect secondary to chronic alcohol abuse - well above transfusion threshold - Will continue to follow Hx back pain and multiple fractures with low bone density: - Patient with chronic back pain at baseline. - Thoracic/Cervical/Lumbar CT with multiple old thoracic vertebral body compression fractures, similar to the preceding study, old superior endplate L1 vertebral body compression fracture, and multiple old bilateral rib fractures - No acute thoracic spine fractures or subluxations identified on imaging. - Patient cleared for C collar removal in ED. No current back or neck pain. - Given history of multiple fractures and low bone density - should get bone density as outpatient. - vitamin d level low at 26, consider starting supplementation as outpt stable for home, outpt PT ongoing (pt preferred SNF/rehab but was not accepted, appears safe for home and notes that home is a safe environment) Total Time Total Time Spent Total Time Spent (In Minutes): <30 Discharge Plan Discharge Items Patient Disposition: Home - Home Health Services Reason For Visit: FALL Discharge Diagnosis: Fall Condition on Discharge: Fair Activity: Resume your previous activity Non-emergency contact: Primary Care Provider Call non-emergency contact if: your pain is concerning for you Follow-up/Referrals: Heather Perez MD [Primary Care Provider] - Garett Elder DO [Physician] - 01/30/20 11:20 am Diet: Regular Addtl Attending Provider Instructions: You were brought to [facility] after falling at home. The cause of your fall is thought to be from an alcohol withdrawal seizure. You demonstrated no further seizure activity while under our care. As a result of your fall, you broke your right arm, which had to be surgically repaired. Please refer to instructions below for your surgically repaired arm. As for you alcohol use, we recommend continuing to attend your weekly therapy session via zoom offered through [facility], and begin to attend AA again. You said you were interested in starting naltrexone again - we recommend doing so under the direction of a primary care doctor. On xray imaging - the radiologist noted that you had low-bone density. We recommend you have a "DEXA" scan as an outpatient to further assess your bone density. Ask your Primary Care Doctor about scheduling this study. Activity and Therapy Recommendations: * We will start with physical therapy. Physical therapy should be about twice a week. It should be just very slow and gentle range of motion of the shoulder. * Wear your sling for 6 weeks, unless otherwise instructed. You may remove your sling to shower and to dress, but otherwise, you should be in your sling at all times, including while sleeping * The shoulder replacement is very stable and you can use your hand while in the sling * You were shown a series of exercises in the hospital. Do these exercises daily including the exercises you were shown in physical therapy. Medications: * Narcotic You will likely be sent home from the hospital with a prescription for the narcotic pain medication that worked best throughout your stay. * Other medications may be prescribed for specific circumstances. If you have any questions, please call the office at . * Resume previous home medications unless otherwise instructed Dressing Care: Leave the Silverlon dressing in place for 7 days. After 7 days you may remove the dressing. If the incision is not draining then you may leave the david open to air. If there is a little bit of drainage or if the david are getting stuck on your clothing then cover the incision with a dry dressing. The david will be removed at your 2 week follow-up appointment. Showering: You may shower with the Silverlon dressing in place. Let the shower spray hit the other shoulder. You can pat the plastic dry. If the dressing becomes wet underneath the plastic then simply remove the dressing. Keep the incision dry until you are 7 days out from the day of surgery. At that time you can shower with the david exposed. Let the soapy shower water run over the david and pat them dry. Do not scrub or soak the incision. Things To Watch For: * Drainage from the incision site that occurs more than one week after your surgery. * Increased redness at the incision site. * Fever above 102 degrees Fahrenheit. * Unusual chest pain or shortness of breath. * Call [facility] at with any of the above problems Follow-Up Visit: Follow-up with Dr. Elder's PA (Garett Velazquez) 2-3 weeks after your day of surgery. He will remove your david and answer any questions. If you have any additional questions or concerns, Dr Elder is usually in the office at the same time and will be available An appointment was probably scheduled when you signed-up for surgery in the office. If you have any questions call More detailed instructions as well as Frequently Asked Questions were provided in a folder by our office when you signed-up for surgery. Please review these instructions when you get home. If you have any further questions or concerns, please feel free to call the office at [phone] Pending Studies at Discharge: No Stand-Alone Forms: [facility], Opioid Pain Management, Smoking Cessation Medications and DC Order Prescriptions: New thiamine HCl (vitamin B1) 100 mg tablet 100 mg PO DAILY Qty: 30 RF: 0 folic acid 1 mg tablet 1 mg PO DAILY Qty: 30 RF: 0 ibuprofen 600 mg tablet 600 mg PO TID PRN (Reason: pain) Qty: 20 RF: 0 oxycodone 5 mg tablet 5 mg PO HS PRN (Reason: pain) Qty: 5 RF: 0 No Action No Known Home Medications RF: 0 Discharge Orders: Discharge Order (Routine); Ordered 01/16/20 Ordered By: Orion Zhu/Other Patient Handouts: Alcoholism: Getting Help Admission Data Admit Date/Time: 01/09/20 20:01 Attending Provider: Orion Alejo Admit Provider: Nelli Collins Primary Care Provider: Heather Perez Other Providers: Shyla Khoury ; Dana Ramos ; Princess Kramer ; Ben, ; [facility] Other Interventions: Discharge Summary Assessment (RN) Last Done: 01/16/20 16:36 Coding Level of Care Code D/C Day Management <30 mins Diagnoses Alcohol withdrawal F10.230 Complication of substance-induced condition: uncomplicated
[2020-01-17 02:04] LABS: Lyme DNA PCR CSF or Synovial Not detected (Not Detected); Lyme DNA Source Synovial Fluid
== END 2020-01-16 20:03 | disposition home health service (06) | DRG 483 ==
LOC: ED 15:40 → 2E 20:01 → SUATTDRO 20:01 → 2E 22:17 → 3N 01-12 15:42